=== PATIENT | female | born 1970 | race Caucasian/White ===

== ENCOUNTER 2020-01-30 10:42 | Emergency (ER) | payer BC, OTHER ==
--- OUTSIDE RECORDS SUMMARY | 2020-01-30 10:45 | XMS REPORT | Continuity of Care Document ---
:1970 Author Organization [facility] t Address [address] [place] [address] [address] [place] [address] Care Team Providers Name Role Phone Nery THORNTON Primary Care Physician Unavailable Stephenie TERAN Attending Clinician Husam LAZAR E Attending Clinician Alejandro WOODSON Attending Clinician STEPHENIE Attending Clinician Unavailable Nery WEINER Attending Clinician Unavailable Al TERAN Attending Clinician Sully ATKINSON M Attending Clinician Dilia Harvey MD Attending Clinician Charles TERAN Attending Clinician Yusef DICK Attending Clinician Unavailable Jerri CARABALLO, L Attending Clinician Unavailable Nery Thornton MD Attending Clinician Jimbo Burt Attending Clinician Yariel ATKINSON Attending Clinician Unavailable Shankar TERAN Attending Clinician Payers Payer Name Policy Type Policy Number Effective Date Expiration Date Jj angel [employer]IG[employer] MANAGED [id number] 2018 MD Fabian ABAD Oscar 00:00:00 POS OPEN [id number] 2019-Monika Roper Problems Condition Condition Condition Status Onset Resolution Last Treating Co mments Source Name Details Category Date Date Treatment Clinician Date Other Other Disease Active Overview: dysphagia dysphagia 3-31 Added Simba rso 00:00: automatic n 00 ally from request for surgery [id number] Gastro-eso Gastro-eso Disease Active Overview : phageal phageal 3-04 Added Anderso reflux reflux 00:00: automatic n disease disease 00 ally from without without request esophagiti esophagiti for s s surgery [id number] Hematemesi Hematemesi Disease Active Overview : s s 3-04 Added Anderso 00:00: automatic n 00 ally from request for surgery [id number] Heartburn Heartburn Disease Active 3-11 Anderso 00:00: n 00 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 14 Michael o 00:00: n 00 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, of lung, 00 TNM stage TNM stage 4 4 Dysphagia Dysphagia Disease Active 5-15 Anderso 00:00: n 00 Choking Choking Disease Active 5-15 Anderso 00:00: n 00 Thyroid Thyroid Disease Active Overview: cancer cancer 5-15 Mandatory Anderso 00:00: CMS n 00 ICD-10 2020 UPDATE Allergies, Adverse Reactions, Alerts Allergy Allergy Status Severity Reaction(s) Onset Inactive Treating Comm ents Source Name Type Date Date Clinician No Known DA Active U 2013-03 [facility]ie 04-26 [facility] 00:00: [address] Social History Social Habit Start Date Stop Date Quantity Comments Source History of tobacco Cigarette Smoker MD Weiner use Sex Assigned At F MD Rodriguez on Exposure to Not sure MD Weiner SARS-CoV-2 (event) Tobacco use and 2020-01-21 2020-01-21 Never used MD Rodriguez on exposure 00:00:00 00:00:00 Alcohol Comment 2019-05-31 2019-05-31 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 Clinician (SIG) Name Name crizotinib 2019-03 Yes Malignant 200mg Take 1 MD (Xalkori) 1-09 neoplasm of capsule Anderso 200 mg 00:00: unspecified (200 mg) n capsule 00 part of by mouth unspecified twice bronchus or daily. lung potassium 2019-03 Yes Malignant 40meq Take 2 MD chloride 104 neoplasm of packets A nderso (Klor-Con) 00:00: unspecified (40 mEq) n 20 mEq 00 part of by mouth packet unspecified daily. bronchus or Mix lung contents of 1 packet in 4 ounces (120 mL) of water or juice. Stir well and drink promptly. venlafaxine 2019-03 Yes TAKE 1 MD (EFFEXOR-XR 1-03 CAPSULE Markus so ) 150 mg 24 00:00: (150 MG) n hr capsule 00 BY MOUTH DAILY WITH FOOD zolpidem 2019-03 Yes TAKE 1 MD (AMBIEN) 5 1-03 TABLET (5 Simba rso mg tablet 00:00: MG) BY n 00 MOUTH DAILY AT BEDTIME venlafaxine 2019-03 Yes TAKE 1 MD (EFFEXOR-XR 1-03 CAPSULE Markus so ) 75 mg 24 00:00: (75 MG) BY n hr capsule 00 MOUTH DAILY WITH FOOD LORazepam 2019-03 Yes Malignant Take 1 tab (Ativan) 0-02 neoplasm of by mouth Anderso 0.5 mg 00:00: unspecified 30 minutes n tablet 00 part of prior to unspecified MRI, may bronchus or repeat x 1 lung if needed. acetaminoph 2019-03 2020- No Malignant 1{tbl} Take 1 MD en-codeine 0-02 10-13 neoplasm of tablet by Andersoscar (TYLENOL 00:00: 04:59 unspecified mouth n #2) 300-15 00 :00 part of every 4 mg per unspecified (four) tablet bronchus or hours as lung needed for moderate pain for up to 10 days. diphenoxyla Yes Diarrhea 1{tbl} Take 1-2 MD te-atropine 9-08 tablets by An derso (LomotiL) 00:00: mouth n 2.5 00 every 6 mg-0.025 mg (six) per tablet hours as needed for diarrhea. Not to exceed 8 tablets per day diphenoxyla 2019- No Diarrhea 1{tbl} Take 1 MD te-atropine 8-19 09-08 tablet by An derso (LomotiL) 00:00: 00:00 mouth n 2.5 00 :00 daily as mg-0.025 mg needed for per tablet diarrhea. Not to exceed 8 tablets per day ondansetron Yes Nausea and 8mg Take 1 MD (ZOFRAN) 8 7-09 vomiting tablet (8 Anderso mg tablet 00:00: mg) by n 00 mouth every 8 (eight) hours as needed for nausea or vomiting. pantoprazol 2019- No Malignant 40mg Take 1 MD e 3- 11-04 neoplasm of tablet (40 A nderso (Protonix) 00:00: 00:00 unspecified mg) by n 40 mg EC 00 :00 part of mouth 2 tablet unspecified (two) bronchus or times a lung day before meals. Take at least 2-3 hours before or after Xalkori dose. ondansetron 2019- No Nausea and Take 1 MD (ZOFRAN) 8 1-14 07-08 vomiting tablet (8 Anderso mg tablet 00:00: 00:00 mg) by n 00 :00 mouth every 8 hours as needed for nausea or vomiting. crizotinib 2018-03- No Malignant 200mg Take 1 MD (XALKORI) 2-03 11-04 neoplasm of capsule Anderso 200 mg 00:00: 00:00 unspecified (200 mg) n capsule 00 :00 part of by mouth unspecified twice bronchus or daily. lung crizotinib Yes Malignant 200mg Take 1 MD (XALKORI) 5-15 neoplasm of capsule Anderso 200 mg 00:00: unspecified (200 mg) n capsule 00 part of by mouth unspecified twice bronchus or daily. lung XALKORI 250 2019- No Malignant TAKE 1 MD mg capsule 5-10 11-04 neoplasm of CAPSULE Anderso 00:00: 00:00 unspecified TWICE A n 00 :00 part of DAY unspecified bronchus or lung pantoprazol 2019- No Heartburn 40mg Take 1 MD e 3-11 11-04 tablet (40 Anderso (PROTONIX) 00:00: 00:00 mg) by n 40 mg EC 00 :00 mouth tablet daily. Take at least 2-3 hours before or after Xalkori dose. ondansetron 2019- No Nausea and Take 1 MD (ZOFRAN) 8 2-07 01-14 vomiting tablet (8 Anderso mg tablet 00:00: 00:00 mg) by n 00 :00 mouth every 8 hours as needed for nausea or vomiting. citalopram Yes Depressive 10mg Take 1 MD (CeleXA) 10 1-30 disorder, tablet (10 Anderso mg tablet 00:00: not mg) by n 00 otherwise mouth at specified bedtime. loperamide 2017-03 Yes Malignant 2mg Take 1 MD (IMODIUM) 2 2-19 neoplasm of capsule (2 Anderso mg capsule 00:00: unspecified mg) by n 00 part of mouth as unspecified needed for bronchus or diarrhea. lung Take 2 cap initially, then 1 cap. after each loose BM. Max 8 cap/day. furosemide Yes Malignant 10mg Take 0.5 MD (LASIX) 20 5-23 neoplasm of tablets Anderso mg tablet 00:00: unspecified (10 mg) by n 00 part of mouth unspecified daily as bronchus or needed for lung edema. acetaminoph 2019- No Malignant 5mL Take 5 mL MD en-codeine 5-23 10-02 neoplasm of by mouth Anderso (TYLENOL 00:00: 00:00 unspecified every 6 n with 00 :00 part of (six) CODEINE) unspecified hours as 120-12 mg/5 bronchus or needed mL oral lung (moderate solution pain). diphenoxyla 2019- No Diarrhea 1{tbl} Take 1 MD te-atropine 4-25 08-19 tablet by An derace (LOMOTIL) 00:00: 00:00 mouth n 2.5 00 :00 every 6 mg-0.025 mg (six) per tablet hours as needed for diarrhea. Not to exceed 8 tablets per day prochlorper Yes Nausea and 10mg Take 1 MD azine 7-06 vomiting tablet (10 Simba rso (COMPAZINE) 00:00: mg) by n 10 mg 00 mouth tablet every 6 (six) hours as needed for nausea or vomiting. Vital Signs Vital Name Observation Time Observation Value Comments Source Systolic blood pressure 2020-01-21 19:39:03 105 mm[Hg] MD Weiner Diastolic blood pressure 2020-01-21 19:39:03 58 mm[Hg] MD Weiner Heart rate 2020-01-21 19:39:03 69 /min MD Markus clifford Body temperature 2020-01-21 19:39:03 36.78 Clary MD Shelby gorman Respiratory rate 2020-01-21 19:39:03 15 /min MD Shelby gorman Oxygen saturation in 2020-01-21 19:39:03 93 /min MD Weiner Arterial blood by Pulse oximetry Body weight 2020-01-21 19:35:00 91.4 kg MD Markus clifford BMI 2020-01-21 19:35:00 36.85 kg/m2 MD Markus clifford Procedures Procedure Date / Time Performed Performing Clinician [facility] e CT CHEST W CONTRAST 2020-01-18 13:05:00 Anita Allen MD Markushiren clifford POC CREATININE 2020-01-18 12:40:00 Anita Allen MD COMPLETE BLOOD COUNT W/ 2020-01-18 12:18:00 Anita Allen MDon DIFFERENTIAL COMPREHENSIVE METABOLIC PANEL 2020-01-18 12:18:00 Anita Allen MD LACTATE DEHYDROGENASE 2020-01-18 12:18:00 [facility] LEV[facility] 2020-01-18 12:18:00 Anita Allen MD PHOSPHORUS LEVEL 2020-01-18 12:18:00 Anita Allen MD Results CBC 2020-01-18 12:18:00 Anita Allen MD MANUAL DIFFERENTIAL 2020-01-18 12:18:00 Anita Allen MD [facility] GLUCOSE LEVEL 2020-01-18 12:18:00 Anita Allen MD BLOOD UREA NITROGEN 2020-01-18 12:18:00 Anita Allen MD Markus [facility] ELECTROLYTE PANEL 2020-01-18 12:18:00 Anita Allen MD SERUM CREATININE 2020-01-18 12:18:00 Anita Allen MD .GLOMERULAR FILTRATION RATE 2020-01-18 12:18:00 Anita Allen MD CALCIUM LEVEL TOTAL 2020-01-18 12:18:00 Anita Allen MD Markus son ALBUMIN LEVEL 2020-01-18 12:18:00 Anita Allen MD ALKALINE PHOSPHATASE 2020-01-18 12:18:00 Anita Allen MD Simba rson ALANINE AMINOTRANSFERASE 2020-01-18 12:18:00 Anita Allen MD ASPARTATE AMINOTRANSFERASE 2020-01-18 12:18:00 Anita Allen TOTAL PROTEIN 2020-01-18 12:18:00 Anita Allen MD FRACTIONATED BILIRUBIN 2020-01-18 12:18:[address] CHEST W CONTRAST 2019-11-02 12:03:00 Angeles Weiner MD And erson POC CREATININE 2019-11-02 11:46:00 Angeles Weiner MD COMPLETE BLOOD COUNT W/ 2019-11-02 11:12:00 Angeles Weiner MD DIFFERENTIAL COMPREHENSIVE METABOLIC PANEL 2019-11-02 11:12:00 Talia Weiner MD Results CBC 2019-11-02 11:12:00 Angeles Weiner MD MANUAL DIFFERENTIAL 2019-11-02 11:12:00 Angeles Weiner MD And erson GLUCOSE LEVEL 2019-11-02 11:12:00 Angeles Weiner MD ELECTROLYTE PANEL 2019-11-02 11:12:00 Angeles Weiner MD Markushiren clifford SERUM CREATININE 2019-11-02 11:12:00 Angeles Weiner MD Michael on .GLOMERULAR FILTRATION RATE 2019-11-02 11:12:00 Angeles Weiner MD CALCIUM LEVEL TOTAL 2019-11-02 11:12:00 Angeles Weiner MD And erson ALBUMIN LEVEL 2019-11-02 11:12:00 Angeles Weiner MD ALKALINE PHOSPHATASE 2019-11-02 11:12:00 Angeles Weiner MDson ALANINE AMINOTRANSFERASE 2019-11-02 11:12:00 Angeles Weiner ASPARTATE AMINOTRANSFERASE 2019-11-02 11:12:00 Angeles Weiner MD TOTAL PROTEIN 2019-11-02 11:12:00 Angeles Weiner MD FRACTIONATED BILIRUBIN 2019-11-02 11:12:00 Angeles Weiner MD BLOOD UREA NITROGEN 2019-11-02 11:12:00 Angeles Weiner MD And erson COMPLETE BLOOD COUNT W/ 2019-09-07 14:59:00 Angeles Weiner MD DIFFERENTIAL COMPREHENSIVE METABOLIC PANEL 2019-09-07 14:59:00 Talia Weiner MD Results CBC 2019-09-07 14:59:00 Angeles Weiner MD Andsylviao martell MANUAL DIFFERENTIAL 2019-09-07 14:59:00 Angeles Weiner MD And erson GLUCOSE LEVEL 2019-09-07 14:59:00 Angeles Weiner MD Andsylviao martell ELECTROLYTE PANEL 2019-09-07 14:59:00 Angeles Weiner MD Markus son SERUM CREATININE 2019-09-07 14:59:00 Angeles Weiner MD Michael on .GLOMERULAR FILTRATION RATE 2019-09-07 14:59:00 Angeles Weiner MD CALCIUM LEVEL TOTAL 2019-09-07 14:59:00 Angeles Weiner MD And erson ALBUMIN LEVEL 2019-09-07 14:59:00 Angeles Weiner MD Anderso martell ALKALINE PHOSPHATASE 2019-09-07 14:59:00 Angeles Weiner MD ALANINE AMINOTRANSFERASE 2019-09-07 14:59:00 Angeles Weiner ASPARTATE AMINOTRANSFERASE 2019-09-07 14:59:00 Angeles Weiner MD TOTAL PROTEIN 2019-09-07 14:59:00 Angeles Weiner MD Andsylviao martell FRACTIONATED BILIRUBIN 2019-09-07 14:59:00 Angeles Weiner MD BLOOD UREA NITROGEN 2019-09-07 14:59:00 Angeles Weiner MD And erson CT CHEST W CONTRAST 2019-07-27 12:12:00 Angeles Weiner MD And erson POC CREATININE 2019-07-27 11:53:00 Angeles Weiner MD Anderso martell COMPLETE BLOOD COUNT W/ 2019-07-27 11:27:00 Angeles Weiner MD DIFFERENTIAL COMPREHENSIVE METABOLIC PANEL 2019-07-27 11:27:00 Talia Weiner MD Results CBC 2019-07-27 11:27:00 Angeles Weiner MD Anderso martell MANUAL DIFFERENTIAL 2019-07-27 11:27:00 Angeles Weiner MD And erson GLUCOSE LEVEL 2019-07-27 11:27:00 Angeles Weiner MD Andana moura BLOOD UREA NITROGEN 2019-07-27 11:27:00 Angeles Weiner MD And erson ELECTROLYTE PANEL 2019-07-27 11:27:00 Angeles Weiner MD Markus son SERUM CREATININE 2019-07-27 11:27:00 Angeles Weiner MD Michael on .GLOMERULAR FILTRATION RATE 2019-07-27 11:27:00 Angeles Weiner MD CALCIUM LEVEL TOTAL 2019-07-27 11:27:00 Angeles Weiner MD And erson ALBUMIN LEVEL 2019-07-27 11:27:00 Angeles Weiner MD ALKALINE PHOSPHATASE 2019-07-27 11:27:00 Angeles Weiner MD ALANINE AMINOTRANSFERASE 2019-07-27 11:27:00 Angeles Weiner ASPARTATE AMINOTRANSFERASE 2019-07-27 11:27:00 Angeles Weiner MD TOTAL PROTEIN 2019-07-27 11:27:00 Angeles Weiner MD FRACTIONATED BILIRUBIN 2019-07-27 11:27:00 Angeles Weiner MD FL ESOPHAGRAM COMPLETE 2019-06-11 16:05:55 Urszula Virk MD SURGICAL BIOPSY HISTORIC 2019-05-31 17:00:00 Uyen Cantrell MD PATHOLOGY BIOPSY SPECIMEN 2019-05-31 15:43:39 Haile Harvey MD INTERPRETATION ENDOSCOPY NOTE RESULTS 2019-05-31 15:35:16 Haile Harvey MD UPPER GASTROINTESTINAL 2019-05-31 15:21:00 Haile Harvey MD ENDOSCOPY OF ESOPHAGUS, STOMACH, AND DUODENUM WITH BIOPSY COMPLETE BLOOD COUNT W/ 2019-05-21 15:13:00 Angeles Weiner MD DIFFERENTIAL COMPREHENSIVE METABOLIC PANEL 2019-05-21 15:13:00 Talia Weiner MD Results CBC 2019-05-21 15:13:00 Angeles Weiner MD Andana moura MANUAL DIFFERENTIAL 2019-05-21 15:13:00 Angeles Weiner MD And erson GLUCOSE LEVEL 2019-05-21 15:13:00 Angeles Weiner MD Andana moura BLOOD UREA NITROGEN 2019-05-21 15:13:00 Angeles Weiner MD And erson ELECTROLYTE PANEL 2019-05-21 15:13:00 Angeles Weiner MD Markus son SERUM CREATININE 2019-05-21 15:13:00 Angeles Weiner MD Michael on .GLOMERULAR FILTRATION RATE 2019-05-21 15:13:00 Angeles Weiner MD CALCIUM LEVEL TOTAL 2019-05-21 15:13:00 Angeles Weiner MD And erson ALBUMIN LEVEL 2019-05-21 15:13:00 Angeles Weiner MD Andsylviao martell ALKALINE PHOSPHATASE 2019-05-21 15:13:00 Angeles Weiner MDson ALANINE AMINOTRANSFERASE 2019-05-21 15:13:00 Angeles Weiner ASPARTATE AMINOTRANSFERASE 2019-05-21 15:13:00 Angeles Weiner MD TOTAL PROTEIN 2019-05-21 15:13:00 Angeles Weiner MD Andsylviao n FRACTIONATED BILIRUBIN 2019-05-21 15:13:00 Angeles Weiner MD COMPLETE BLOOD COUNT W/ 2019-04-16 16:27:00 Carolyn Garcia MD nderstobi DIFFERENTIAL COMPREHENSIVE METABOLIC PANEL 2019-04-16 16:27:00 Carolyn Garcia MD Results CBC 2019-04-16 16:27:00 Carolyn Garcia MD MANUAL DIFFERENTIAL 2019-04-16 16:27:00 Carolyn Garcia MD Markus son GLUCOSE LEVEL 2019-04-16 16:27:00 Carolyn Garcia MD ELECTROLYTE PANEL 2019-04-16 16:27:00 Carolyn Garcia MD Andana moura SERUM CREATININE 2019-04-16 16:27:00 Carolyn Garcia MD .GLOMERULAR FILTRATION RATE 2019-04-16 16:27:00 Carolyn Garcia MD CALCIUM LEVEL TOTAL 2019-04-16 16:27:00 Carolyn Garcia MD Markus son ALBUMIN LEVEL 2019-04-16 16:27:00 Carolyn Garcia MD ALKALINE PHOSPHATASE 2019-04-16 16:27:00 Carolyn Garciae rson ALANINE AMINOTRANSFERASE 2019-04-16 16:27:00 Carolyn Garcia MD ASPARTATE AMINOTRANSFERASE 2019-04-16 16:27:00 Carolyn Garcia TOTAL PROTEIN 2019-04-16 16:27:00 Carolyn Garcia MD FRACTIONATED BILIRUBIN 2019-04-16 16:27:00 Carolyn Garcia MD Cristy romero BLOOD UREA NITROGEN 2019-04-16 16:27:00 Carolyn Garcia MD Markus clifford CT CHEST W CONTRAST 2019-04-12 14:35:44 Carolyn Garcia MD Markus clifford BLOOD UREA NITROGEN 2019-04-12 12:05:00 Marita Saldivar MD Markus clifford SERUM CREATININE 2019-04-12 12:05:00 Marita Saldivar MD SERUM CREATININE 2019-04-12 12:05:00 Marita Saldivar MD .GLOMERULAR FILTRATION RATE 2019-04-12 12:05:00 Marita Saldivar MD Encounters Start End Encounter Admission Attending Care Care Encounter Source Date/Time Date/Time Type Type Clinicians Facility Department ID 2019-10-01 2019-10-01 Outpatient FERNANDA GARCIA MDA MDA [id number] 00:00:00 00:00:00 CAROLYN moura 2019-09-07 2019-09-07 Outpatient FERNANDA WEINER BALWINDER MDA [id number] 09:53:02 23:59:00 ANGELES moura Results Test Description Test Time Test Comments Results Result [facility] e Comments CT Chest with 2020-01-19 1. Residual right MD Weiner Contrast 15:19:36 lower cervical and right mediastinal and hilar lymph nodes that presumably represent treated tumor are not changed. 2. Small pulmonary nodules are not changed over a couple of years and could be benign now or represent treated tumor. No progressive or new disease. 3. New right costophrenic sulcus opacities might be atelectasis, aspiration or infection. Interface, Radiology Results In - 01/19/2020 9:21 AM CSTFULL RESULT:Examination: CT CHEST W CONTRAST, 01/18/2020 7:05 AMClinical History: Malignant neoplasm of unspecified part of unspecified bronchus or lungIndication: Lung cancer, staging, Lung cancer care, No iodinated contrast contraindication, restage, restageComparison: 11/02/2019. Technique: CT of the chest was performed with intravenous contrast.Findings: Right supraclavicular adenopathy is seen again but not really changed over the past 5 months soft tissue thickening along the trachea at the thoracic inlet is seen again. Cardiac chamber sizes are normal. Right paratracheal adenopathy is seen again. Scattered small mediastinal lymph nodes and small right hilar lymph nodes are unchanged. Numerous small nodules are seen again throughout both lungs without significant change back to at least April 2017 examination. There is some new patchy ground glass opacity in the right posterior costophrenic sulcus. No farnaz consolidation. No pleural effusion. Gastric band device is present. Cholecystectomy clips.IMPRESSION:1. Residual right lower cervical and right mediastinal and hilar lymph nodes that presumably represent treated tumor are not changed.2. Small pulmonary nodules are not changed over a couple of years and could be benign now or represent treated tumor. No progressive or new disease.3. New right costophrenic sulcus opacities might be atelectasis, aspiration or infection. Differential 2020-01-18 16:49:26 Test Item Value Reference Range Interpretation Comme nts Total Cells (test code = 01087-2) 100 Neutrophil % (test code = 6491) 26.0 % 42-66 L The Neutrophil count includes Bands. Lymphocyte % (test code = 6194) 38.0 % 24-44 Monocyte % (test code = 6422) 30.0 % 2-7 H Eosinophil % (test code = 5520) 5.0 % 1-4 H Basophil % (test code = 5068) 1.0 % 0-1 NRBC (test code = 771-6) 1.0 <=0.0 H Neutrophil Abs (test code = 6492) 0.62 K/uL 1.7-7.3 L Lymphocyte Abs (test code = 6195) 0.91 K/uL 1-4.8 L Monocyte Abs (test code = 6423) 0.72 K/uL 0.08-0.7 H Eosinophil Abs (test code = 5521) 0.12 K/uL 0.04-0.4 Basophil Abs (test code = 5069) 0.02 K/uL 0-0.1 RBC Morph (test code = 6742-1) Present Normal A PLT Morph (test code = 34503-5) Present Normal A Anisocytosis (test code = 702-1) Present Not Present A Slide Comments (test code = 5447) See Note A Platelet morphology normal with occasional giant platelet. Lab Interpretation (test code = Abnormal 93797-8) MD Weiner.[id number] 16:49:24 Test Item Value Reference Range Interpretation Comments WBC (test code = 8034) 2.4 K/uL 4-11 L RBC (test code = 6932) 3.93 4.00- 5.50 M/uL L Hgb (test code = 5898) 10.9 12.0- 16.0 gm/dL L Hct (test code = 5860) 34.4 % 37-47 L MCV (test code = 6222) 88 fL 82-98 MCH (test code = 6220) 27.7 pg 27-31 MCHC (test code = 6221) 31.7 31.0- 36.0 gm/dL RDW-SD (test code = 55.2 fL 35.1-46.3 H 6972) RDW-CV (test code = 17.5 % 12-15.5 H 6971) Platelet count (test 234 K/uL 140-440 code = 6832) MPV (test code = 6282) 11.5 fL 4-10.4 H INRBC (test code = 0.0 % <=0.0 The INRBC (instrument 5974) NRBC) value ref lects the enumeration of nucleated red b lood cells contained in a 200uL sampleof whole blood analyzed by the instrument. Thi s value maydiffer from the NRBC value reported in a m anual differential,wh ich is based on a 100 cell differential. Lab Interpretation Abnormal (test code = 08500-9) MD WeinerElectrolyte [id number] 16:17:37 Test Item Value Reference Range Interpretation Comments Sodium Lvl (test code = 7355) 143 136- 145 mEq/L Potassium Lvl (test code = 6854) 2.6 3.5- 5.1 mEq/L L Chloride (test code = 5279) 104 98- 107 mEq/L CO2 (test code = 5227) 33 22- 29 mEq/L H Anion Gap (test code = 9325) 6 4- 14 mEq/L Lab Interpretation (test code = Abnormal 34751-7) MD WeinerPhosphorus [id number] 13:56:37 Test Item Value Reference Range Interpretation Comments Phosphorus (test code = 6817) 2.6 mg/dL 2.5-4.5 MD [id number] 13:56:36 Test Item Value Reference Range Interpretation Comments LDH (test code = 6111) 495 U/L 135-214 H Resul ts greater than 1651 U/L may no t be reliable due to matrix effect w ith extended diluti on as it exceeds the labelling machine operator s recommended l imit. Caution should be exercised when interpreting price ch values and done in conjunction wit h clinical contex t. Lab Interpretation (test Abnormal code = 28805-0) MD WeinerCalcium [id number] 13:56:35 Test Item Value Reference Range Interpretation Comments Calcium Lvl (test code = 5258) 7.8 mg/dL 8.4-10.2 L Lab Interpretation (test code = Abnormal 03532-3) MD WeinerFractionated [id number] 13:56:34 Test Item Value Reference Range Interpretation Comments Bili Total (test <0.3 <=1.2 mg/dL Indocyanine Green (ICG) may code = 5096) cause falsely e levated bilirubin resul ts. Total and direct bilirubi n must not be measured from s amples containing indo cyanine green. False el evation of total bilirubin can be seen in patients wit h IgG concentrations above 28 g/L.Direct and indirect bilirubin will not be reported when T otal bilirubin resul t is <0.3 mg/dL MD WeinerAlbumin [id number] 13:56:33 Test Item Value Reference Range Interpretation Comments Albumin Lvl (test code = 4763) 2.6 3.5- 5.2 gm/dL L Lab Interpretation (test code = Abnormal 84106-7) MD WeinerGlomerular Filtration [id number] 13:56:32 Test Item Value Reference Range Interpretation Comments eGFR-AA (test 87 >=60 mL/min/1.73 sq. Normal eGFR: >= 60 code = 8062) m mL/min/1.73 m2N ote: The eGFR is calcula mirella using the CKD-EPI equ ation. The eGFR declines w ith age. eGFR <60 mL/min /1.73 m2 is considered as " decreased". This equation s hould only be used for pat ients 18 and older. Acco rding to the National Ki dney Foundation's dney Disease Outcome Quality Initiative (KDO QI) classification and 2012 Kidney Disease Improving Global Outcomes (KDIGO) Clinical Practi ce Guideline, the stage of CKD should be c ategorized based on estima mirella GFR. Stage Descripti on GFR mL/min/1.73 m21 Normal or high GFR >=902 Mildly de creased GFR 60-893a Mildly to moder ately decreased GFR 45-593b Moderately to s everely decreased GFR 30-444 Severely decrea sed GFR 15-295 Kidney failure <15 eGFR-YARELIS (test 76 >=60 mL/min/1.73 sq. Amelia l eGFR: >= 60 code = 8063) m mL/min/1.73 m2N ote: The eGFR is calcula mirella using the CKD-EPI equ ation. The eGFR declines w ith age. eGFR <60 mL/min /1.73 m2 is considered as " decreased". This equation s hould only be used for pat ients 18 and older. Acco rding to the National dney Foundation's dney Disease Outcome Quality Initiative (KDO QI) classification and 2012 Kidney Disease Improving Global Outcomes (KDIGO) Clinical Practi ce Guideline, the stage of CKD should be c ategorized based on estima mirella GFR. Stage Descripti on GFR mL/min/1.73 m21 Normal or high GFR >=902 Mildly de creased GFR 60-893a Mildly to moder ately decreased GFR 45-593b Moderately to s everely decreased GFR 30-444 Severely decrea sed GFR 15-295 Kidney failure <15 MD WeinerAspartate Rppbtsbbicrhhqry1165-12-37 13:56:31 Test Item Value Reference Range Interpretation Comments AST (test code = 4731) 68 U/L <=32 H Lab Interpretation (test code = Abnormal 82163-6) MD WeinerTotal [id number] 13:56:30 Test Item Value Reference Range Interpretation Comments Total Protein (test code = 7649) 6.1 g/dL 6.4-8.3 L Lab Interpretation (test code = Abnormal 37362-7) MD WeinerMagnesium Sqxch7164-03-29 13:56:28 Test Item Value Reference Range Interpretation Comments Magnesium (test code = 6359) 2.1 mg/dL 1.6-2.6 MD WeinerGlucose [id number] 13:56:27 Test Item Value Reference Range Interpretation Comments Glucose Level (test 91 mg/dL 70-99 Referenc e range is valid code = 5699) for fasting spe cimens only. Guideline s established by the [place] [employer] yael delines (Standards of M edical Care in Diabete s 2016. Diabetes Care 2 016; 39: S13-22) are ray t a fasting glucose of greater than or equal to 126 mg/dL or a random glucose greater than or equal to 200 mg /dL with symptoms, that are confirmed by re peat testing on a di fferent day, meet the c zoilaeria for diabetes me jasmeet. MD WeinerAlkaline Lydwzwxplua6651-66-10 13:56:26 Test Item Value Reference Range Interpretation Comments Alk Phos (test code = 4768) 112 U/L 35-104 H Lab Interpretation (test code = Abnormal 40499-9) MD WeinerQtzzexpgISR3569-39-36 13:56:25 Test Item Value Reference Range Interpretation Comments ALT (test code = 4705) 70 U/L <=33 H Lab Interpretation (test code = Abnormal 32594-9) MD Weiner.Serum Nzsdytoqeu9753-11-35 13:56:24 Test Item Value Reference Range Interpretation Comments Creatinine (test code = 5399) 0.90 mg/dL 0.51-0.95 MD WeinerPdvdpfceRWP8290-00-68 13:56:23 Test Item Value Reference Range Interpretation Comments BUN (test code = 5055) 6 mg/dL 6-23 MD WeinerPOC Ceuzhepxqg7979-42-60 12:50:25 Test Item Value Reference Range Interpretation Comments POC Crea (test 0.8 mg/dL 0.6-1.3 Medications, especially code = hydroxyurea or supplements, 32085-2) such as ascorba te, can interfere with test results causing a false ly and significantlyhi gher result than expected. If a problem is suspected wi th a patient's resul t, a sample should be sent to the laboratory for confirmatory testing. Method description: The i-STAT is a n analyzer used for in vit ro quantification of various analytes in who le blood. The device uses a s yarelis disposable cart ridge which contains microf abricated sensors, a shaquille bration solution, fluid ics system, and a waste sudhakar mber. Each test cartridge contains chemically sens itive biosensors on a silicon chip that are config ured to perform specifi c tests. The microfabricated sensors measure analyte concentration b y an electrochemical assay. POC eGFR-AA 101 >=60 mL/min/1.73 Normal eGFR >= 60 (test code = m2 mL/min/1.73 [place] [address]-6) calculated usin g the CKD-EPI equation. The e GFR declines with age. eGFR <60 mL/min/1.73 m2 is considered as "decreased" This equation should only be used for patients 18 and older. According to e National [employer] on's Kidney Disease Outcome Quality Initiative (KDO QI) classification and 2012 Kidney Disease Improving Global Outcomes (KDIGO) Clinical Practi ce Guideline, the stage of CK D should be categorized bas ed on estimated GFR. Stage Description GFR mL/min/1.73 m21 Kidney agatha ge with normal or high GFR >=902 Kidney damage w ith mild decrease in GFR 60-893a Mild to moderat e decrease in GFR 45-593b Moderate to severe decrease in GFR 30-444 Severe d ecrease in GFR 15-295 K idney failure <15 (or ji lysis) POC eGFR-YARELIS 87 >=60 mL/min/1.73 Normal eGFR >= 60 (test code = m2 mL/min/1.73 m2 [place] [address]-6) calculated usin g the CKD-EPI equation. The e GFR declines with age. eGFR <60 mL/min/1.73 m2 is considered as "decreased" This equation should only be used for patients 18 and older. According to e National [employer] on's Kidney Disease Outcome Quality Initiative (KDO QI) classification and 2012 Kidney Disease Improving Global Outcomes (KDIGO) Clinical Practi ce Guideline, the stage of CK D should be categorized bas ed on estimated GFR. Stage Description GFR mL/min/1.73 m21 Kidney agatha ge with normal or high GFR >=902 Kidney damage w ith mild decrease in GFR 60-893a Mild to moderat e decrease in GFR 45-593b Moderate to severe decrease in GFR 30-444 Severe d ecrease in GFR 15-295 K idney failure <15 (or ji lysis) POC Clean Dev Yes (test code = 6672) MD WeinerEsophagram [id number] 16:26:04 Increased tertiary nonpropulsive esophageal contractions with hang-up of a mini marshmallow (simulating a pill) in the upper esophagus. Interface, Radiology Results In - 06/11/2019 11:28 AM CDTFULL RESULT:Examination: FL ESOPHAGRAM COMPLETE, 06/11/2019 11:05 AMClinical History: 48-year-old female withnon-small cell lung cancer and thyroid cancerIndication: dysphagiaComparison: NoneTechnique: A double contrast esophagram was performed. The patient drank thick and thin barium after the administration of effervescent granules. Fluoroscopic images were obtained with the patient in upright bilateral posterior oblique, upright anterior-posterior and prone right anterior oblique positions. A 1 cm rodriguez mallow was administered.Findings: No aspiration was seen. Laryngeal penetration was seen. The esophageal course and caliber were normal with no strictures, masses or diverticula. No mucosal ulcerations were seen. Increased tertiary nonpropulsive esophageal contractions were noted. There was hang-up of a mini marshmallow simulating a pill in the upper esophagus, which eventually passed with additional sips of barium and water.There was no hiatal hernia or spontaneous reflux. Visualized portions of the upper stomach are normal, with free flow of contrast through the gastric banding device.IMPRESSION:Increased tertiary nonpropulsive esophageal contractions with hang-up of a mini marshmallow (simulating a pill) in the upper esophagus. AndersonENDOSCOPY NOTE [id number] 15:35:16Haile Harvey MD - 05/31/2019 10:35 AM CDTPatient Name: Zari PosadasGender: FemaleMRN: [id number]: 48Procedure Date No Time: 05/31/2019Instrument Name: 1119 [id number](s): CHANTELL HARVEY, NANCYrocedure Name: Upper GI endoscopyScope In: 10:39:39 AMScope Out: 10:46:53 AMTotal Procedure Duration Time 0 hours 7 minutes 14 seconds Indications: Dysphagia, HeartburnMedications: TIVAProcedure Description: Pre-Anesthesia Assessment: - Prior to the procedure, a History and Physical was perform ed, and patient medications and allergies were reviewed. The risks and benefits of the procedure and the sedation options and risks were discussed with the patient. All questions were answered and informed consent was obtained. Patient identification and proposed procedurewere verified by the physician in the pre- procedure area. Airway Examination: normal oropharyngeal airway and neck mobility. Prophylactic Antibiotics: The patient does not require prophylactic antibiotics. Prior Anticoagulants: The patient has taken no previous anticoagulant or antiplatelet agents. ASA Grade Assessment: II - A patient with mild systemic disease. After reviewing the risks and benefits, the patient was deemed in satisfactory condition to undergo the procedure. The anesthesia plan was to use TIVA. Immed iately prior to administration of medications, the patient was re-assessedfor adequacy to receive sedatives. The heart rate, respiratory rate, oxygen saturations, blood pressure, adequacy of pulmonary ventilation, and response to care were monitored throughout the procedure. The physical status of the patient was re-assessed after the procedure. Informed consent was obtained. Throughout the procedure, the patient's blood pressure, pulse, and oxygen saturations were monitored continuously. The Olympus GIF-HQ190 ([id number]) upper endoscope - (9.9 mm dm) was introduced through the mouth, and advanced to the third part of duodenum. The upper GI endoscopy was accomplished without difficulty. The patient tolerated the procedure well.Findings: A medium-sized hiatal hernia was present with slight irregularity at GE junction. Biopsies were taken with a cold forceps for histology here and in proximal esophagus to r/o eosinophilic esophagitis (doubt).Complications: No immediate complications.Estimated Blood Loss: Estimated blood loss: none.Post Procedure Diagnosis: - Medium-sized hiatalhernia. Biopsied.Recommendation: - Patient has a contact number available for emergencies. The signs and symptoms of potential delayed complications were discussed with the patient. Return to normal activities tomorrow. Written discharge instructions were provided to the patient. - Resume previous diet. - Continue present medications. - Await pathology results. -Consider performance of barium swallow and esophageal manometry in light of atypical symptoms.Attending Participation: I personally performed the entire procedure.HAILE HARVEY MD05/31/2019 10:58:30 AMThis report has been signed electronically.Number of Addenda: 0MD AndersonSCR MAMM BILATERAL FABIO CAD [id number] 08:38:34 - SCR MAMM BILATERAL FABIO CAD DIGITALBILATERAL DIGITAL SCREENING MAMMOGRAM 3D/2D WITH CAD: 09/11/2018CLINICAL: Asymptomatic. Digital breast tomosynthesis was performed in addition to routine CC and MLO views. Current mammographic images were evaluated by either a [employer] M-Vu or a [employer] ImageChecker CAD (computer aided detection system). Comparison is made to exams dated 09/06/2017 mammogram, 08/31/2015 mammogram - [facility], and 12/16/2013 mammogram - [facility]. There are scattered fibroglandular tissues in both breasts. There are benign calcificationsin both breasts. No suspicious mass, architectural distortion, malignant type calcification, or lymph node abnormality detected. Breast architecture is stable compared to prior exams.IMPRESSION: BENIGNThere is no mammographic evidence of malignancy. Resume annual screening mammography in one year. Zac Gallagher M.D. et/penrad:09/17/2018 08:38:34 Apartment Maintenance Supervisor: Renata Regalado MM, [employer] [facility] Mammographyletter sent: BIRADS 1-2 Normal Mammogram BI-RADS: 2 Benign- XR UGI W/AIR W/O [id number] 15:50:00 Patient Name: ZARI COLBY Unit No: [id number] EXAMS: CPT CODE: [id number] XR UGI W/AIR W/O KUB 73040 Exam: Single contrast upper GI Location: B2 Clinical Indication: Dysphagia. Findings: Total fluoroscopy time was 0.4 minutes. 7 spot fluoroscopic images of the upper abdomen were obtained while the patient drank barium. Gastric band is at an approximate 45 degree angle. No slip or obstruction. Contrast passes normally into the proximal small bowel. Impression: Normal band study. at 1550 Reported and signed by: Gregory Davis M.D. CC: Pennie Grimm MD Technologist: [facility] STUDENT ; Willie Ireland RT(R) Transcrpt Date/Tm/Trnsp: 07/09/2018 (3242) [id number] Print D/T: S: 07/09/2018 (8241) [facility] NAME: ZARI COLBY [address] [place] PHYS: [place] [address] : 1970 AGE: 47 SEX: F LOC: Z.RAD PHONE #: [phone] EXAM DATE: 07/09/2018 STATUS: REG CLI FAX #: [phone] RADIOLOGY NO: PAGE 1 Signed Report
--- NOTE | 2020-01-30 11:23 | RAD REPORT ---
EXAM DESCRIPTION: CT - Head Brain Wo Cont - 01/30/2020 11:16 am CLINICAL HISTORY: Altered mental status, suspected CVA, history of non-small cell lung malignancy COMPARISON: HEAD BRAIN W O CONTRAST dated 05/20/2014 TECHNIQUE: Axial 5 mm thick images of the head were obtained without IV contrast. All CT scans are performed using dose optimization technique as appropriate and may include automated exposure control or mA/KV adjustment according to patient size. FINDINGS: No intracranial hemorrhage is present. The patient has a 3.5 centimeter diameter isodense lesion in the left temporal lobe -posterior frontal lobe junction. There is a moderate amount of surr ounding edema. Mass effect is created with a 4 millimeter qshn-pt-efehg midline shift. A small 9 millimeter hyperdense lesion is present in the anteromedial right frontal lobe with a minim al amount of adjacent edema. A 2 centimeter lesion is present in the right frontal lobe adjacent to t he basal ganglia. There is a mild surrounding rim of edema. Additional small metastatic lesions could be present an isodense to parenchyma on noncontrast imaging. No acute cortical based infarction. No abnormal extra-axial fluid collections. Left lateral ventricl e is partially effaced by the left cerebral mass effect. Mastoid air cells and visualized portions of the paranasal sinuses are clear. No acute bony findings. Findings telephoned to the referring clinician 11:12 a.m.. IMPRESSION: Multiple intracranial metastatic lesions present with a dominant 3.5 centimeter mass at the left temporal lobe frontal lobe junction. This creates moderate severity mass effect with 4 mm of qxfz-qi-pbgef midline shift. No intracranial hemorrhage. Patient has several additional small metastatic lesions without significa nt edema or mass effect.
[2020-01-30] MEDS ORDERED: FENTANYL CITR 100 MCG/2 ML ONE ×2 (11:41→13:32)
[2020-01-30] MEDS ORDERED: dexAMETHasone 10 MG/ML VIAL ONE (11:41)
--- NOTE | 2020-01-30 12:01 | RAD REPORT ---
EXAM DESCRIPTION: RAD - Chest Single View - 01/30/2020 11:53 am CLINICAL HISTORY: cva, aphasia COMPARISON: Portable May 2014 TECHNIQUE: AP portable chest image was obtained 01/30/2020 11:53 am . FINDINGS: Lung volumes are low. A peripheral mass or consolidation not identified. Available medical history is limited. The patient was thought to have non-small cell lung carcinoma. However, no mass is evident. A central mediastinal mass is potentially masked. No acute failure or volume overload. Th e low lung volumes and body habitus affects can account for the increased interstitial pattern. Heart and vasculature are normal. No measurable pleural effusion and no pneumothorax. No acute bony abnorm ality seen. No acute aortic findings suspected. IMPRESSION: No acute cardiopulmonary process. Low lung volumes and body habitus affects can account for the increased interstitial pattern.
--- NOTE | 2020-01-30 12:02 | EDPHYS ---
Physician Documentation [facility] Name: Zari Posadas Age: 49 yrs Sex: Female : 1970 Arrival Date: 01/30/2020 Time: 10:52 Bed 17 Private MD: ED Physician Axel Weiner HPI: 01/29 11:52 This 49 yrs old Female presents to ER via EMS with complaints of Trouble jr8 speaking. 11:52 The patient's problem is reported as dysphasia, expressive aphasia. Onset: The jr8 symptoms/episode began/occurred acutely, yesterday. Duration: The episode is continuous. Context: occurred at home. The symptoms are alleviated by nothing. The symptoms are aggravated by nothing. Associated signs and symptoms: Pertinent positives: headache. Severity of symptoms: At their worst the symptoms were moderate in the emergency department the symptoms are unchanged. Patient's baseline: Neuro: alert and fully oriented, Motor: no deficits, Ambulation: walks without assistance, Speech: normal. The patient has not experienced similar symptoms in the past. The patient has not recently seen a physician. Patient presented by EMS with 3 days of headache and now with expressive aphasia. Currently on chemotherapy orally for non small cell metastatic lung cancer . 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 - Social history:: Smoking status: Patient denies any tobacco usage or history of. ROS: 11:52 Eyes: Negative for injury, pain, redness, and discharge, ENT: Negative for injury, jr8 pain, and discharge, Neck: Negative for injury, pain, and swelling, Cardiovascular: Negative for chest pain, palpitations, and edema, Respiratory: Negative for shortness of breath, cough, wheezing, and pleuritic chest pain, Abdomen/GI: Negative for abdominal pain, nausea, vomiting, diarrhea, and constipation, Back: Negative for injury and pain, MS/Extremity: Negative for injury and deformity, Skin: Negative for injury, rash, and discoloration. 11:52 Neuro: Positive for headache, speech changes. Exam: 11:52 Radiologist reports: Metastatic intracranial lesions with mass effect and edema jr8 11:52 Eyes: Pupils equal round and reactive to light, extra-ocular motions intact. Lids and lashes normal. Conjunctiva and sclera are non-icteric and not injected. Cornea within normal limits. Periorbital areas with no swelling, redness, or edema. ENT: Nares patent. No nasal discharge, no septal abnormalities noted. Tympanic membranes are normal and external auditory canals are clear. Oropharynx with no redness, swelling, or masses, exudates, or evidence of obstruction, uvula midline. Mucous membranes moist. Neck: Trachea midline, no thyromegaly or masses palpated, and no cervical lymphadenopathy. Supple, full range of motion without nuchal rigidity, or vertebral point tenderness. No Meningismus. Cardiovascular: Regular rate and rhythm with a normal S1 and S2. No gallops, murmurs, or rubs. Normal PMI, no JVD. No pulse deficits. Respiratory: Lungs have equal breath sounds bilaterally, clear to auscultation and percussion. No rales, rhonchi or wheezes noted. No increased work of breathing, no retractions or nasal flaring. Abdomen/GI: Soft, non-tender, with normal bowel sounds. No distension or tympany. No guarding or rebound. No evidence of tenderness throughout. Back: No spinal tenderness. No costovertebral tenderness. Full range of motion. Skin: Warm, dry with normal turgor. Normal color with no rashes, no lesions, and no evidence of cellulitis. MS/ Extremity: Pulses equal, no cyanosis. Neurovascular intact. Full, normal range of motion. 11:52 Neuro: Orientation: to person, place \T\ time. Mentation: able to follow commands, Memory: immediate memory is intact, remote memory is intact. recent memory is intact, Cranial nerves: CN I not tested, CN II- XII are normal as tested, visual thompson are intact. extraocular movements are intact, Speech is Patient with expressive aphasia . Tongue strength is normal, Cerebellar function: normal finger to nose testing, heel to clements testing is normal, Motor: moves all fours, Sensation: no obvious gross deficits, seizure activity, is not displayed by the patient, Abnormal movements: there are no abnormal movements. Vital Signs: 10:58 BP 119 / 92; Pulse 69; Resp 15; Pulse Ox 100% ; Pain 10/10; jl7 11:23 BP 102 / 68; Pulse 64; Resp 17; Pulse Ox 100% ; jl7 12:00 BP 101 / 63; Pulse 77; Resp 17; Pulse Ox 100% ; jl7 13:41 BP 114 / 43; Pulse 66; Resp 15; Pulse Ox 100% ; jl7 NIH Stroke Scale Scores: 11:00 NIHSS Score: 3 jl7 11:52 NIHSS Score: 3 jr8 MDM: 10:52 Patient medically screened. 11:52 Data reviewed: vital signs, nurses notes, lab test result(s), EKG, radiologic studies, [facility] CT scan, plain films. Data interpreted: Pulse oximetry: on room air is 100 %. Interpretation: normal. Counseling: I had a detailed discussion with the patient and/or guardian regarding: the historical points, exam findings, and any diagnostic results supporting the discharge/admit diagnosis, lab results, radiology results, the need to transfer to another facility, [facility] does not immediately have the required specialist. ED course: Spoke with Dr. Perez at [facility] who excepted transfer to [facility] for emergent consult . 01/29 10:53 Order name: Basic Metabolic Panel; Complete Time: 12:50 01/29 10:53 Order name: CBC with Diff; Complete Time: 12:50 [facility] 01/29 10:53 Order name: LFT's; Complete Time: 12:50 01/29 10:53 Order name: Magnesium; Complete Time: 12:50 01/29 10:53 Order name: NT PRO-BNP; Complete Time: 12:50 01/29 10:53 Order name: PT-INR; Complete Time: 12:50 [facility] 01/29 10:53 Order name: Troponin (emerg Dept Use Only); Complete Time: 12:50 01/29 10:53 Order name: XRAY Chest (1 view); Complete Time: 12:09 01/29 10:53 Order name: CT Head Brain wo Cont; Complete Time: 11:35 01/29 12:41 Order name: Glucose, Ancillary Testing; Complete Time: 12:50 EDMS 01/29 10:53 Order name: EKG; Complete Time: 10:54 01/29 10:53 Order name: Cardiac monitoring; Complete Time: 11:51 01/29 10:53 Order name: EKG - Nurse/Tech; Complete Time: 13:34 8 01/29 10:53 Order name: IV Saline Lock; Complete Time: 11:51 01/29 10:53 Order name: Labs collected and sent; Complete Time: 11:51 01/29 10:53 Order name: O2 Per Protocol; Complete Time: 11:51 01/29 10:53 Order name: O2 Sat Monitoring; Complete Time: 11:51 01/29 10:53 Order name: Glucose Level; Complete Time: 13:34 jr Administered Medications: 11:40 Drug: Decadron - Dexamethasone 10 mg Route: IVP; Site: right antecubital; jl7 13:35 Follow up: Response: No adverse reaction jl7 11:42 Drug: fentaNYL (PF) 50 mcg Route: IVP; Site: right antecubital; jl7 12:00 Follow up: Response: No adverse reaction; Pain is decreased jl7 12:50 Drug: D5-NS 1000 ml Route: IV; Rate: 75 ml/hr; Site: right antecubital; jl7 13:36 Follow up: IV Status: Infusion continued upon transfer jl7 13:30 Drug: fentaNYL (PF) 25 mcg Route: IVP; Site: right hand; jl7 13:33 Drug: Potassium Chloride 20 mEq Route: IV; Rate: calculated rate; Site: right hand; jl7 13:36 Follow up: IV Status: Infusion continued upon transfer jl7 13:35 Drug: Zofran (Ondansetron) 4 mg Route: IVP; Site: right hand; jl7 13:36 Follow up: Response: No adverse reaction jl7 Point of Care Testing: Blood Glucose: 13:43 Blood Glucose: 67 mg/dL; jl7 Ranges: Critical Glucose Levels:Adult <50 mg/dl or >400 mg/dl <40 mg/dl or >180 mg/dl Disposition: 01/30 08:19 Co-signature as Attending Physician, Axel TERAN I agree with the assessment and sudhakar plan of care. Disposition: 01/30/20 12:01 Transfer ordered to Other Acute Care Facility. Diagnosis are Metastatic Intracranial Lesions with edema and mass effect, Aphasia following other cerebrovascular disease. - Reason for transfer: Higher level of care. - Accepting physician is Dr. Perez. - Condition is Fair. - Problem is new. - Symptoms are unchanged. NIH Stroke Scale - NIH Stroke Score Date: 01/30/2020 Time: 11:00 Total Score = 3 1a. Level of Consciousness (LOC) - 0(Alert) 1b. Level of Consciousness (LOC) (Year \T\ Age) - 2(Neither) 1c. LOC Commands (Open \T\ Closes Eyes/Bench Worker Hollow Handle) - 0(Both) 2. Best Gaze (Lateral Gaze Paresis) - 0(Normal) 3. Visual Field Loss - 0(No visual loss) 4. Facial Palsy - 0(Normal) 5a. Left Arm: Motor (10-second hold) - 0(No drift) 5b. Right Arm: Motor (10-second hold) - 0(No drift) 6a. Left Leg: Motor (5-second hold - always test supine) - 0(No drift) 6b. Right Leg: Motor (5-second hold - always test supine) - 0(No drift) 7. Limb Ataxia (finger/nose \T\ heel/clements - test with eyes open) - 0(Absent) 8. Sensory Loss (pinprick arms/legs/face) - 0(Normal) 9. Best Language: Aphasia (description/naming/reading) - 1(Mild to moderate aphasia) 10. Dysarthria (speech clarity - read or repeat words) - 0(Normal) 11. Extinction and Inattention (visual/tactile/auditory/spatial/personal) - 0(No abnormality) Initials: jl7 NIH Stroke Scale - NIH Stroke Score Date: 01/30/2020 Time: 11:52 Total Score = 3 1a. Level of Consciousness (LOC) - 0(Alert) 1b. Level of Consciousness (LOC) (Year \T\ Age) - 2(Neither) 1c. LOC Commands (Open \T\ Closes Eyes/Bench Worker Hollow Handle) - 0(Both) 2. Best Gaze (Lateral Gaze Paresis) - 0(Normal) 3. Visual Field Loss - 0(No visual loss) 4. Facial Palsy - 0(Normal) 5a. Left Arm: Motor (10-second hold) - 0(No drift) 5b. Right Arm: Motor (10-second hold) - 0(No drift) 6a. Left Leg: Motor (5-second hold - always test supine) - 0(No drift) 6b. Right Leg: Motor (5-second hold - always test supine) - 0(No drift) 7. Limb Ataxia (finger/nose \T\ heel/clements - test with eyes open) - 0(Absent) 8. Sensory Loss (pinprick arms/legs/face) - 0(Normal) 9. Best Language: Aphasia (description/naming/reading) - 1(Mild to moderate aphasia) 10. Dysarthria (speech clarity - read or repeat words) - 0(Normal) 11. Extinction and Inattention (visual/tactile/auditory/spatial/personal) - 0(No abnormality) Initials: jr8 Signatures: Dispatcher [employer] EDAxel Alamo MD MD cha Roszak, Josh, PA PA jr8 Malcolm Green RN RN jl7 Corrections: (The following items were deleted from the chart) 01/29 13:55 12:01 01/30/2020 12:01 Transfer ordered to Other Acute Care Facility. Diagnosis jl7 is Metastatic Intracranial Lesions with edema and mass effect; Aphasia following other cerebrovascular disease. Reason for transfer: Higher level of care. Accepting physician is Dr. Perez. Condition is Fair. Problem is new. Symptoms are unchanged. jr8
--- NOTE | 2020-01-30 12:02 | ER ---
Nurse's Notes [facility] Name: Zari Posadas Age: 49 yrs Sex: Female : 1970 Arrival Date: 01/30/2020 Time: 10:52 Bed 17 Private MD: Diagnosis: Metastatic Intracranial Lesions with edema and mass effect;Aphasia following other cerebrovascular disease Presentation: 01/29 10:58 Chief complaint: EMS states: Left sided ABREU x 3 days, aphasia started yesterday about jl7 0800 and worsening. Coronavirus screen: Client denies travel out of the [place] in the last 14 days. At this time, the client does not indicate any symptoms associated with coronavirus-19. Ebola Screen: No symptoms or risks identified at this time. Initial Sepsis Screen: Does the patient meet any 2 criteria? No. Patient's initial sepsis screen is negative. Does the patient have a suspected source of infection? No. Patient's initial sepsis screen is negative. Risk Assessment: Do you want to hurt yourself or someone else? Patient reports no desire to harm self or others. Onset of symptoms was January 27, 2020. Care prior to arrival: IV initiated. 20 GA, in the right antecubital area, Glucose check: 76. Transition of care: patient was not received from another setting of care. 10:58 Method Of Arrival: EMS: [facility] 7 10:58 Acuity: TYSHAWN 2 jl7 11:08 An acute neurological deficit is present. The charge nurse has been notified. The jl7 patient has been moved to a treatment area. The patients blood glucose was checked before arriving to the hospital and was found to be normal. Triage Assessment: 11:06 General: Appears in no apparent distress. uncomfortable, Behavior is cooperative, jl7 appropriate for age, anxious. Pain: Complains of pain in left mu-ism Pain currently is 10 out of 10 on a pain scale. Neuro: Level of Consciousness is awake, alert, obeys commands, Oriented to person, place, time, situation, Dowel Setting Machine Operator are equal bilaterally Moves all extremities. Full function Speech with expressive aphasia noted, Facial symmetry appears normal. Cardiovascular: Patient's skin is warm and dry. Respiratory: Airway is patent Respiratory effort is even, unlabored, Respiratory pattern is regular, symmetrical. Derm: Skin is pink, warm \T\ dry. 11:08 The onset of the patients symptoms was January 27, 2020 at 11:09. 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/A - Post-menopause jl7 Stroke Activation: Symptom onset > 6 hours Physician: Stroke Attending; Name: ; Notified At: ; Arrived At: Physician: Chief Stroke Resident; Name: ; Notified At: ; Arrived At: Physician: Stroke Resident; Name: ; Notified At: ; Arrived At: Physician: ED Attending; Name: ; Notified At: ; Arrived At: Physician: ED Resident; Name: ; Notified At: ; Arrived At: Historical: - Allergies: 11: No Known Allergies; jl7 - Home Meds: :06 Lorazepam Oral [Active]; venlafaxine oral oral [Active]; diphenoxylate-atropine Oral jl7 [Active]; crizotinib oral oral [Active]; - PMHx: 11:06 lung cancer; jl7 - PSHx: 11:06 Cholecystectomy; Fallopian tubes removed; lap band; jl7 - Immunization history:: Adult Immunizations unknown. - Social history:: Smoking status: Patient denies any tobacco usage or history of. Screenin:00 Abuse screen: Denies threats or abuse. Denies injuries from another. Nutritional jl7 screening: No deficits noted. Tuberculosis screening: No symptoms or risk factors identified. Fall Risk IV access (20 points). Total Rogers Fall Scale indicates No Risk (0-24 pts). Assessment: 11:00 T-PA (Activase) Screening: Contraindications: Patient reports onset of signs and jl7 symptoms of stroke greater than 6 hours ago: Yes. 11:15 VAN Scoring: Arm Drift: Patients demonstrates NO arm weakness. Patient is VAN Negative. jl7 The patient has not been NPO before screening. The patient is currently on the following diet: Regular The patient is alert, and able to follow commands. The patient does not exhibit slurred or garbled speech. The patient is not exhibiting difficulty speaking. The patient does not exhibit difficulty understanding words. The patient is able to swallow own secretions with no drooling or need for suction. Patient tolerated one teaspoon of water. No drooling, immediate coughing, gurgling, or clearing of the throat was noted. The patient tolerated 90mL of water. No drooling, immediate coughing, gurgling, or clearing of the throat was noted. The patient passed the bedside swallow screening. Oral medications may be given as ordered. Contact Physician for further diet orders. Provider notified of bedside swallow screening results: Wilbur ABDUL. 11:15 General: See triage assessment. jl7 12:00 Reassessment: Patient appears in no apparent distress at this time. No changes from jl7 previously documented assessment. Patient and/or family updated on plan of care and expected duration. Pain level reassessed. Patient is alert, oriented x 3, equal unlabored respirations, skin warm/dry/pink. 13:00 Reassessment: Family remains at bedside. jl7 13:50 Reassessment: EMS at bedside to transport pt. jl7 Vital Signs: 10:58 BP 119 / 92; Pulse 69; Resp 15; Pulse Ox 100% ; Pain 10/10; jl7 11:23 BP 102 / 68; Pulse 64; Resp 17; Pulse Ox 100% ; jl7 12:00 BP 101 / 63; Pulse 77; Resp 17; Pulse Ox 100% ; jl7 13:41 BP 114 / 43; Pulse 66; Resp 15; Pulse Ox 100% ; jl7 NIH Stroke Scale Scores: 11:00 NIHSS Score: 3 jl7 11:52 NIHSS Score: 3 jr8 ED Course: 10:52 Patient arrived in ED. [facility] 10:52 [facility]ren[facility] jr8 10:52 Axel Weiner MD is Attending Physician. jr8 10:57 Malcolm Green, RN is Primary Nurse. jl7 10:59 Triage completed. jl7 11:00 Patient has correct armband on for positive identification. Placed in gown. Bed in low jl7 position. Call light in reach. Side rails up X 1. hospital monitor on. Pulse ox on. NIBP on. 11:00 Maintain EMS IV. Dressing intact. Good blood return noted. Site clean \T\ dry. Gauge \T\ jl 7 site: 20 right AC. 11:06 Arm band placed on right wrist. jl7 11:07 XRAY Chest (1 view) In Process Unspecified. EDMS 11:16 CT Head Brain wo Cont In Process Unspecified. EDMS 11:35 initiated a transfer with [facility] from the [facility] Transfer center. eb 11:[address] Perez the emergency room doctor concrete mixer for [facility] for patient transfer consultation. 11:[address] given by Dr. Gage Perez, patient has been accepted to [facility]/ report to be called to [phone]. 12:00 Initial lab(s) drawn, by me, sent to lab. Urine collected: clean catch specimen, clear, jl7 EKG done, by ED staff, reviewed by Axel Weiner MD. 13:30 Inserted saline lock: 22 gauge in right hand, using aseptic technique. jl7 13:50 No provider procedures requiring assistance completed. Patient transferred, IV remains jl7 in place. intact, No redness/swelling at site. Administered Medications: 11:40 Drug: Decadron - Dexamethasone 10 mg Route: IVP; Site: right antecubital; jl7 13:35 Follow up: Response: No adverse reaction jl7 11:42 Drug: fentaNYL (PF) 50 mcg Route: IVP; Site: right antecubital; jl7 12:00 Follow up: Response: No adverse reaction; Pain is decreased jl7 12:50 Drug: D5-NS 1000 ml Route: IV; Rate: 75 ml/hr; Site: right antecubital; jl7 13:36 Follow up: IV Status: Infusion continued upon transfer jl7 13:30 Drug: fentaNYL (PF) 25 mcg Route: IVP; Site: right hand; jl7 13:33 Drug: Potassium Chloride 20 mEq Route: IV; Rate: calculated rate; Site: right hand; jl7 13:36 Follow up: IV Status: Infusion continued upon transfer jl7 13:35 Drug: Zofran (Ondansetron) 4 mg Route: IVP; Site: right hand; jl7 13:36 Follow up: Response: No adverse reaction jl7 Point of Care Testing: Blood Glucose: 13:43 Blood Glucose: 67 mg/dL; jl7 Ranges: Outcome: 12:01 ER care complete, transfer ordered by [facility] 13:50 Transferred by ground EMS to other acute care facility: [facility]. Transfer form jl7 completed. X-rays sent w/ patient. 13:50 Condition: stable 13:50 Discharge instructions given to patient, family, Instructed on the need for transfer, Demonstrated understanding of instructions. 13:55 Patient left the ED. jl7 NIH Stroke Scale - NIH Stroke Score Date: 01/30/2020 Time: 11:00 Total Score = 3 1a. Level of Consciousness (LOC) - 0(Alert) 1b. Level of Consciousness (LOC) (Year \T\ Age) - 2(Neither) 1c. LOC Commands (Open \T\ Closes Eyes/Validation Manager) - 0(Both) 2. Best Gaze (Lateral Gaze Paresis) - 0(Normal) 3. Visual Field Loss - 0(No visual loss) 4. Facial Palsy - 0(Normal) 5a. Left Arm: Motor (10-second hold) - 0(No drift) 5b. Right Arm: Motor (10-second hold) - 0(No drift) 6a. Left Leg: Motor (5-second hold - always test supine) - 0(No drift) 6b. Right Leg: Motor (5-second hold - always test supine) - 0(No drift) 7. Limb Ataxia (finger/nose \T\ heel/clements - test with eyes open) - 0(Absent) 8. Sensory Loss (pinprick arms/legs/face) - 0(Normal) 9. Best Language: Aphasia (description/naming/reading) - 1(Mild to moderate aphasia) 10. Dysarthria (speech clarity - read or repeat words) - 0(Normal) 11. Extinction and Inattention (visual/tactile/auditory/spatial/personal) - 0(No abnormality) Initials: jl7 NIH Stroke Scale - NIH Stroke Score Date: 01/30/2020 Time: 11:52 Total Score = 3 1a. Level of Consciousness (LOC) - 0(Alert) 1b. Level of Consciousness (LOC) (Year \T\ Age) - 2(Neither) 1c. LOC Commands (Open \T\ Closes Eyes/Validation Manager) - 0(Both) 2. Best Gaze (Lateral Gaze Paresis) - 0(Normal) 3. Visual Field Loss - 0(No visual loss) 4. Facial Palsy - 0(Normal) 5a. Left Arm: Motor (10-second hold) - 0(No drift) 5b. Right Arm: Motor (10-second hold) - 0(No drift) 6a. Left Leg: Motor (5-second hold - always test supine) - 0(No drift) 6b. Right Leg: Motor (5-second hold - always test supine) - 0(No drift) 7. Limb Ataxia (finger/nose \T\ heel/clements - test with eyes open) - 0(Absent) 8. Sensory Loss (pinprick arms/legs/face) - 0(Normal) 9. Best Language: Aphasia (description/naming/reading) - 1(Mild to moderate aphasia) 10. Dysarthria (speech clarity - read or repeat words) - 0(Normal) 11. Extinction and Inattention (visual/tactile/auditory/spatial/personal) - 0(No abnormality) Initials: jrBeba Signatures: Dispatcher [employer] EDAxel Alamo MD MD cha Roszak, Josh, PA PA jr8 Malcolm Green RN RN jl7 Isabela Ramirez
[2020-01-30 12:13] LABS: Absolute Lymphocytes (CBC) 0.5 K/uL (0.7-4.9); Basophils % 0.2 % (0-1.3); Lymphocytes % 14.7 % (15.3-44.8); MPV 10.1 fL (7.6-11.3); RBC Red Blood Cell Count 3.98 M/uL (3.86-4.86)
[2020-01-30 12:14] LABS: Protime INR 1.12
[2020-01-30] MEDS ORDERED: D5 0.9 NS 1,000 ML IV ONE (12:31)
[2020-01-30 12:37] LABS: ALT/SGPT 43 U/L (12-78); AST/SGOT 25 U/L (15-37); Albumin 2.3 g/dL (3.4-5.0); Alkaline Phosphatase 129 U/L (45-117); BUN Blood Urea Nitrogen 7 mg/dL (7-18); Bicarbonate 30 mmol/L (21-32); Bilirubin Direct < 0.1 mg/dL (0-0.2); Bilirubin Total 0.4 mg/dL (0.2-1.0); Glucose Level 80 mg/dL (74-106); Magnesium 1.8 mg/dL (1.8-2.4); NT PRO-BNP 344 pg/mL (<125); Sodium Level 143 mmol/L (136-145); Troponin (Emerg Dept Use Only) < 0.02 ng/mL (0.0-0.045)
[2020-01-30] MEDS ORDERED: KCL 20 MEQ/100 mL IVPB 20 MEQ/100 ML BAG IV ONE (13:24)
[2020-01-30 14:08] VITALS: O2SAT 100
[2020-01-30 14:12] VITALS: BP 114/43
[2020-01-30] MEDS ORDERED: ONDANSETRON 4 MG/2 ML VIAL ONE (14:26)
--- NOTE | 2020-02-01 07:47 | EKG ---
Test Date: 2020-01-30 Test Time: 12:10:23 Waxing Machine Operator Helper: CARLY MEASUREMENT RESULTS: Intervals: Rate: 64 MA: 138 QRSD: 92 QT: 456 QTc: 470 [place]: P: 24 MA: 138 QRS: 21 T: 39 INTERPRETIVE STATEMENTS: Normal sinus rhythm Nonspecific T wave abnormality Prolonged QT Abnormal ECG No previous ECG available for comparison Electronically Signed On 02-01-20 07:41:23 AXMINSTER RUG SETTER by Barrett Ortiz
== END 2020-01-30 13:55 ==
LOC: ER 10:42
DX: I69.920 Aphasia following unspecified cerebrovascular disease (principal); C79.31 Secondary malignant neoplasm of brain; G93.6 Cerebral edema; C34.90 Malignant neoplasm of unspecified part of unspecified bronchus or lung; R29.703 NIHSS score 3
CPT/HCPCS: 93005; 85025; 80048; 36415; 83735; 85610; 82947; 80076; 84484; 83880; 70450; 71045; 99285; J3480; J3010 ×2; J1100; J7042; J2405

== ENCOUNTER 2020-07-09 11:07 | Inpatient (IN) | payer OTHER ==
--- OUTSIDE RECORDS SUMMARY | 2020-07-09 11:12 | XMS REPORT | Continuity of Care Document ---
:1970 Author Organization [facility] t Address [address] [place] [place] [address] Care Team Providers Name Role Phone SANDRA Primary Care Physician Unavailable Husam DRAKENP, E Attending Clinician Jose TERAN Attending Clinician Jhoana TERAN, F Attending Clinician Alejandro WOODSON Attending Clinician Mike CARABALLO, A Attending Clinician Unavailable Carlene Emery MD Attending Clinician Sandra TERAN Attending Clinician Nita Calderón MD Attending Clinician Ghassan CARABALLO Attending Clinician Unavailable Jibmo Enriquez APN Attending Clinician Chelsie TERAN Attending Clinician Marcin HOLDER, E Attending Clinician Unavailable Arnold TERAN PhD, H Attending Clinician Isabel TERAN Attending Clinician Unavailable Alla BOLIVAR Attending Clinician Carmelo Rodriguez RN, A Attending Clinician Unavailable Joni TERAN, L Attending Clinician Aguila BUSINESS CENTER MANAGER, L Attending Clinician Janie TERAN, F. Attending Clinician Rafaela ATKINSON Attending Clinician Hany HOLDER Attending Clinician Unavailable Mayco HOLDER, F Attending Clinician Unavailable Juilo ARENAS Attending Clinician Mendel Barrera MD, T Attending Clinician Germán TERAN Attending Clinician Claudia TERAN Attending Clinician Jairo TERAN Attending Clinician Gifford, S Attending Clinician JOSE Attending Clinician Unavailable Nery WEINER Attending Clinician Unavailable Al TERAN Attending Clinician Payers Payer Name Policy Type Policy Number Effective Date Expiration Date Jj SANTIZO MANAGED [id number] 2018 Andana moura CARECIGNA O 00:00:00 POS OPEN [id number] 2019-Monika Roper Problems Condition Condition Condition Status Onset Resolution Last Treating Co mments Source Name Details Category Date Date Treatment Clinician Date Lesion of Lesion of Disease Active 2019-03 Overview: brain brain 04-04 Added Anderso 00:00: automatic n 00 ally from request for surgery [id number] Hypokalemi Hypokalemi Disease Active 2019-03 M D a a 04-01 Anderso 00:00: n 00 Disorder Disorder Disease Active 2019-03 of fluid of fluid 04-01 Michael o AND/OR AND/OR 00:00: n electrolyt electrolyt 00 e e 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 Simba rso neoplastic neoplastic 00:00: n disease disease 00 Cerebral Cerebral Disease Active 2019-03 edema edema 03-31 Anderso 00:00: n 00 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 00 Aphasia Aphasia Disease Active 2019-03 03-31 Anderso 00:00: n 00 Other Other Disease Active Overview: dysphagia dysphagia 3-31 Added Simba rso 00:00: automatic n 00 ally from request for surgery [id number] Gastro-eso Gastro-eso Disease Active Overview : phageal phageal 3-04 Added Anderso reflux reflux 00:00: automatic n disease disease 00 ally from without without request esophagiti esophagiti for s s surgery [id number] Hematemesi Hematemesi Disease Active Overview : s s 3-04 Added Anderso 00:00: automatic n 00 ally from request for surgery [id number] Heartburn Heartburn Disease Active 3-11 Anderso 00:00: n 00 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 -14 Michael o 00:00: n 00 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, of lung, 00 TNM stage TNM stage 4 4 Dysphagia Dysphagia Disease Active 5-15 Anderso 00:00: n 00 Choking Choking Disease Active 5-15 Anderso 00:00: n 00 Thyroid Thyroid Disease Active Overview: cancer cancer 5-15 Mandatory Anderso 00:00: CMS n 00 ICD-10 2020 UPDATE Adjustment 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 Michael o with mixed with mixed n anxiety anxiety and and depressed depressed mood mood Other Other Disease Active psychologi psychologi An derso pito or pito or n physical physical stress, stress, not not elsewhere elsewhere classified classified Dysarthria Dysarthria Disease Active M D Anderso n Malignant Malignant Disease Active neoplasm neoplasm Michael o related related n fatigue fatigue Allergies, Adverse Reactions, Alerts Allergy Allergy Status Severity Reaction(s) Onset Inactive Treating Comm ents Source Name Type Date Date Clinician No Known DA Active U 2013-03 [facility] 04[facility] 00:00: [address] Social History Social Habit Start Date Stop Date Quantity Comments Source History of tobacco Cigarette Smoker MD Weiner use Sex Assigned At F MD Rodriguez on Exposure to Not sure MD Weiner SARS-CoV-2 (event) Tobacco use and 2020-06-09 2020-06-09 Never used MD Rodriguez on exposure 00:00:00 00:00:00 Alcohol Comment 2019-05-31 2019-05-31 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 Clinician (SIG) Name Name ondansetron Yes Nausea and 8mg Take 1 MD (ZOFRAN) 8 4-22 vomiting tablet (8 Anderso mg tablet 00:00: mg) by n 00 mouth every 8 (eight) hours as needed for nausea or vomiting. diphenoxyla Yes Diarrhea 1{tbl} Take 1-2 MD te-atropine 4-07 tablets by Cristy derso (LomotiL) 00:00: mouth n 2.5 00 every 6 mg-0.025 mg (six) per tablet hours as needed for diarrhea. Not to exceed 8 tablets per day traMADol Yes Myalgia, 50mg Take 1 MD (Ultram) 50 4-07 not tablet (50 An derso mg tablet 00:00: otherwise mg) by n 00 specified mouth 2 (two) times a day as needed for moderate pain. diazePAM Yes TAKE 1/2 MD (VALIUM) 10 3-11 TABLET (5 And erso mg tablet 00:00: MG) BY n 00 MOUTH DAILY NEEDED potassium Yes Malignant 40meq Take 2 MD chloride 3-03 neoplasm of packets A nderso (Klor-Con) 00:00: unspecified (40 mEq) n 20 mEq 00 part of by mouth packet unspecified twice bronchus or daily. lung Mix contents of 1 packet in 4 ounces (120 mL) of water or juice. Stir well and drink promptly. memantine Yes Secondary TAKE ONE MD (Namenda) 1-21 malignant TABLET BY Anderso 10 mg 00:00: neoplasm of MOUTH n tablet 00 brain DAILY FOR 7 DAYS, THEN TAKE 1 TABLET BY MOUTH TWO TIMES A DAY FOR 6 MONTHS. methocarbam 2019-03 Yes Lesion of 500mg Take 1 MD ol 1-29 brain tablet Anderso (ROBAXIN) 00:00: (500 mg) n 500 mg 00 by mouth tablet every 6 (six) hours as needed for muscle spasms. dexamethaso 2019-03 Yes Lesion of Take 2 MD ne 1-29 brain tablets by Anderso (DECADRON) 00:00: mouth n 2 mg tablet 00 every 6 hours for 3 days THEN take 2 tablets every 8 hours for 3 days, then take 1 tablet every 8 hours for 3 days, then take 1 tablet every 12 hours for 3 days, then take 1 tablet daily for 3 days, THEN STOP acetaminoph 2019-03 Yes Lesion of 1{tbl} Take 1 MD en-codeine - brain tablet by And erso (TYLENOL 00:00: mouth 3 n #3) 300 00 (three) mg-30 mg times a tablet day as needed for mild pain. levETIRAcet 2019-03 Yes Secondary 1500mg Take one MD am (Keppra) - malignant and a half Anderso 1000 mg 00:00: neoplasm of tablets n tablet 00 brain (1,500 mg) by mouth twice daily. Please follow up with Neurosurge ry after procedure. docusate 2019-03- No Lesion of 100mg Take 1 MD sodium 04-16-24 brain capsule Anderso (COLACE) 00:00: 00:00 (100 mg) n 100 mg 00 :00 by mouth capsule twice daily. pantoprazol 2019-03 Yes Cerebral 40mg Take 1 MD e 1-18 edema tablet (40 Anderso (PROTONIX) 00:00: mg) by n 40 mg EC 00 mouth tablet daily. Follow up with RIKY elizabeth 2019-03 Yes Cerebral 2{tbl} Take 2 MD (SENOKOT) -17 edema tablets by And erso 8.6 mg 00:00: mouth 2 n tablet 00 (two) times a day as needed for constipati on. polyethylen 2019-03- No Cerebral Fill M D e glycol 04-04 03-24 edema powder to Simba rso (GLYCOLAX) 00:00: 00:00 top of n 17 00 :00 white gram/dose section in powder cap which is marked to indicate the correct dose (17 g) stir and dissolve in any 4 to 8 ounces of beverage (cold, hot or room temperatur e) then drink once a day. dexamethaso 2019-03- No Cerebral 4mg Take 1 MD ne 04-04 edema tablet (4 Anderso (DECADRON) 00:00: 00:00 mg) by n 4 mg tablet 00 :00 mouth every 6 (six) hours. Please follow up with Neurosurge ry for taper after surgery. levETIRAcet 2019-03- No Secondary 1000mg Take 1 MD am (Keppra) 04-04 malignant tablet Anderso 1000 mg 00:00: 00:00 neoplasm of (1,000 mg) n tablet 00 :00 brain by mouth twice daily. Please follow up with Neurosurge ry after procedure. alectinib 2019-03 Yes Malignant 600mg Take 4 MD (Alecensa) 04-03 neoplasm of capsules Anderso 150 mg cap 00:00: unspecified (600 mg) n capsule 00 part of by mouth unspecified twice bronchus or daily. lung Administer with food. crizotinib 2019-03- No Malignant 200mg Take 1 MD (Xalkori) 03-27 neoplasm of capsule Anderso 200 mg 00:00: 00:00 unspecified (200 mg) n capsule 00 :00 part of by mouth unspecified twice bronchus or daily. lung potassium 2019-03- No Malignant 40meq Take 2 MD chloride 03-22 0303 neoplasm of packets Anderso (Klor-Con) 00:00: 00:00 unspecified (40 mEq) n 20 mEq 00 :00 part of by mouth packet unspecified daily. bronchus or Mix lung contents of 1 packet in 4 ounces (120 mL) of water or juice. Stir well and drink promptly. venlafaxine 2019-03 Yes TAKE 1 MD (EFFEXOR-XR -03 CAPSULE Markus so ) 150 mg 24 00:00: (150 MG) n hr capsule 00 BY MOUTH DAILY WITH FOOD zolpidem 2019-03 Yes TAKE 1 MD (AMBIEN) 5 -03 TABLET (5 Simba rso mg tablet 00:00: MG) BY n 00 MOUTH DAILY AT BEDTIME venlafaxine 2019-03- No TAKE 1 MD (EFFEXOR-XR 03-21 CAPSULE Simba rso ) 75 mg 24 00:00: 00:00 (75 MG) BY n hr capsule 00 :00 MOUTH DAILY WITH FOOD LORazepam 2019-03- No Malignant Take 1 tab MD (Ativan) 0 11-17 neoplasm of by mouth Anderso 0.5 mg 00:00: 00:00 unspecified 30 minutes n tablet 00 :00 part of prior to unspecified MRI, may bronchus or repeat x 1 lung if needed. acetaminoph 2019-03- No Malignant 1{tbl} Take 1 MD en-codeine 0 10-13 neoplasm of tablet by Anderso (TYLENOL 00:00: 04:59 unspecified mouth n #2) 300-15 00 :00 part of every 4 mg per unspecified (four) tablet bronchus or hours as lung needed for moderate pain for up to 10 days. diphenoxyla 2020- No Diarrhea 1{tbl} Take 1-2 MD te-atropine 9- 04-07 tablets by A nderso (LomotiL) 00:00: 00:00 mouth n 2.5 00 [...] to exceed 8 tablets per day ondansetron 2020- No Nausea and 8mg Take 1 MD (ZOFRAN) 8 7- 04-22 vomiting tablet (8 Anderso mg tablet 00:00: 00:00 mg) by n 00 :00 mouth every 8 (eight) hours as needed for nausea or vomiting. pantoprazol 2019- No Malignant 40mg Take 1 MD e 3-04 11-04 neoplasm of tablet (40 A nderso [...] needed for nausea or vomiting. crizotinib 2018-03- Malignant 200mg Take 1 MD (XALKORI) 2- 11-04 neoplasm of capsule Anderso 200 mg 00:00: 00:00 unspecified (200 mg) n capsule 00 :00 part of by mouth unspecified twice bronchus or daily. lung crizotinib Malignant 200mg Take 1 MD (XALKORI) 5-17 neoplasm of capsule Anderso 200 mg 00:00: 00:00 unspecified (200 mg) n capsule 00 :00 part of by mouth unspecified twice bronchus or daily. lung XALKORI 250 2019- Malignant TAKE 1 MD mg capsule 5- neoplasm of CAPSULE Anderso 00:00: 00:00 unspecified TWICE A n 00 :00 part of DAY unspecified bronchus or lung pantoprazol 2019- No Heartburn 40mg Take 1 MD e 301-20 tablet (40 Anderso (PROTONIX) 00:00: 00:00 mg) by n 40 mg EC 00 :00 mouth tablet daily. Take at least 2-3 hours before or after Xalkori dose. citalopram Depressive 10mg Take 1 MD (CeleXA) 10 1-30 11-17 disorder, tablet (10 Anderso mg tablet 00:00: 00:00 not mg) by n 00 :00 otherwise mouth at specified bedtime. loperamide 2017-03 Yes Malignant 2mg Take 1 MD (IMODIUM) 2 2-19 neoplasm of capsule (2 Anderso mg capsule 00:00: unspecified mg) by n 00 part of mouth as unspecified needed for bronchus or diarrhea. lung Take 2 cap initially, then 1 cap. after each loose BM. Max 8 cap/day. furosemide Malignant 10mg Take 0.5 MD (LASIX) 20 5-23 03-24 neoplasm of tablets Anderso mg tablet 00:00: 00:00 unspecified (10 mg) by n 00 :00 part of mouth unspecified daily as bronchus or needed for lung edema. acetaminoph 2019- No Malignant 5mL Take 5 mL enMoisecodeine 08-08 neoplasm of by mouth Anderso (TYLENOL 00:00: 00:00 unspecified every 6 n with 00 :00 part of (six) CODEINE) unspecified hours as 120-12 mg/5 bronchus or needed mL oral lung (moderate solution pain). diphenoxyla 2019- No Diarrhea 1{tbl} Take 1 te-atropine 07-1119 tablet by An derso (LOMOTIL) 00:00: 00:00 mouth n 2.5 00 :00 every 6 mg-0.025 mg (six) per tablet hours as needed for diarrhea. Not to exceed 8 tablets per day prochlorper 2019- No Nausea and 10mg Take 1 azine 09-2117 vomiting tablet (10 And erso (COMPAZINE) 00:00: 00:00 mg) by n 10 mg 00 :00 mouth tablet every 6 (six) hours as needed for nausea or vomiting. Vital Signs Vital Name Observation Time Observation Value Comments Source Systolic blood 2020-06-09 16:23:07 91 mm[Hg] pressure Diastolic blood 2020-06-09 16:23:07 65 mm[Hg] MD Cristy romero pressure Heart rate 2020-06-09 16:23:07 79 /min MD Markus clifford Body temperature 2020-06-09 16:20:45 36.78 Clary MD Shelby gorman Respiratory rate 2020-06-09 16:20:45 18 /min MD Shelby gorman Oxygen saturation in 2020-06-09 16:20:45 97 /min MD Weiner Arterial blood by Pulse oximetry Body weight 2020-06-09 16:18:00 91.6 kg MD Markus clifford BMI 2020-06-09 16:18:00 38.13 kg/m2 MD Markus clifford Body height 2020-02-11 01:30:00 155 cm pre-Op mohsen. MD Simba mason patient is post crani on bedrest Procedures Procedure Date / Time Performed Performing Clinician Sourc e AP IHC PD-L1 2020-06-10 01:29:29 Carolyn Casiano MD, MD NGS BLOOD CONTROL 2020-06-09 16:26:[address] CHEST ABDOMEN PELVIS W 2020-06-09 14:59:31 Dalia Weiner MD CONTRAST CREATINE KINASE 2020-06-09 12:56:00 Carolyn Casiano MD COMPLETE BLOOD COUNT W/ 2020-06-09 12:56:00 Dalia Weiner MD DIFFERENTIAL COMPREHENSIVE METABOLIC PANEL 2020-06-09 12:56:00 Talia Weiner MD Results CBC 2020-06-09 12:56:00 Dalia Weiner MD MANUAL DIFFERENTIAL 2020-06-09 12:56:00 Dalia Weiner MD And erson GLUCOSE LEVEL 2020-06-09 12:56:00 Dalia Weiner MD BLOOD UREA NITROGEN 2020-06-09 12:56:00 Dalia Weiner MD And erson ELECTROLYTE PANEL 2020-06-09 12:56:00 Dalia Weiner MD Markus son SERUM CREATININE 2020-06-09 12:56:00 Dalia Weiner MD Michael on .GLOMERULAR FILTRATION RATE 2020-06-09 12:56:00 Dalia Weiner MD CALCIUM LEVEL TOTAL 2020-06-09 12:56:00 Dalia Weiner MD And erson ALBUMIN LEVEL 2020-06-09 12:56:00 Dalia Weiner MD ALKALINE PHOSPHATASE 2020-06-09 12:56:00 Dalia Weiner MD ALANINE AMINOTRANSFERASE 2020-06-09 12:56:00 Dalia Weiner ASPARTATE AMINOTRANSFERASE 2020-06-09 12:56:00 Dalia Weiner MD TOTAL PROTEIN 2020-06-09 12:56:00 Dalia Weiner MD FRACTIONATED BILIRUBIN 2020-06-09 12:56:00 Dalia Weiner MD MRI BRAIN W WO CONTRAST 2020-04-06 20:43:10 Katelyn Quinones COVID-19 (SARS-COV-2) 2020-04-04 13:57:00 Bree Calderón MD nderson PCR-ASYMPTOMATIC MC CT CHEST W CONTRAST 2020-04-04 13:41:00 Dalia Weiner MD And erson POC CREATININE 2020-04-04 13:15:00 Dalia Weiner MD Andsylviao martell COMPLETE BLOOD COUNT W/ 2020-04-04 12:51:00 Dalia Weiner MD DIFFERENTIAL COMPREHENSIVE METABOLIC PANEL 2020-04-04 12:51:00 Talia Weiner MD Results CBC 2020-04-04 12:51:00 Dalia Weiner MD Andsylviao martell MANUAL DIFFERENTIAL 2020-04-04 12:51:00 Dalia Weiner MD And erson GLUCOSE LEVEL 2020-04-04 12:51:00 Dalia Weiner MD Andana moura BLOOD UREA NITROGEN 2020-04-04 12:51:00 Dalia Weiner MD And erson ELECTROLYTE PANEL 2020-04-04 12:51:00 Dalia Weiner MD Markus son SERUM CREATININE 2020-04-04 12:51:00 Dalia Weiner MD Michael on .GLOMERULAR FILTRATION RATE 2020-04-04 12:51:00 Dalia Weiner MD CALCIUM LEVEL TOTAL 2020-04-04 12:51:00 Dalia Weiner MD And erson ALBUMIN LEVEL 2020-04-04 12:51:00 Dalia Weiner MD Andsylviao martell ALKALINE PHOSPHATASE 2020-04-04 12:51:00 Dalia Weiner MD ALANINE AMINOTRANSFERASE 2020-04-04 12:51:00 Dalia Weiner ASPARTATE AMINOTRANSFERASE 2020-04-04 12:51:00 Dalia Weiner MD TOTAL PROTEIN 2020-04-04 12:51:00 Dalia Weiner MD FRACTIONATED BILIRUBIN 2020-04-04 12:51:00 Dalia Weiner MD MRI CERVICAL THORACIC LUMBAR 2020-02-25 02:10:00 Blanco Angeles MD SPINE WO CONTRAST BASIC METABOLIC PANEL, 2020-02-15 11:32:00 MD Husam Batista CALCIUM TOTAL Mark Barfield MAGNESIUM LEVEL 2020-02-15 11:32:00 Hiram Dailey MD And erson Mark Barfield PHOSPHORUS LEVEL 2020-02-15 11:32:00 MD Cristy Batista COMPLETE BLOOD COUNT W/ 2020-02-15 11:32:00 MD Husam Batista DIFFERENTIAL Mark Barfield GLUCOSE LEVEL 2020-02-15 11:32:00 Hiram Dailey MD And jeff Barfield BLOOD UREA NITROGEN 2020-02-15 11:32:00 MD Husam Batista ELECTROLYTE PANEL 2020-02-15 11:32:00 MD Shelby Batista SERUM CREATININE 2020-02-15 11:32:00 MD Cristy Batista .GLOMERULAR FILTRATION RATE 2020-02-15 11:32:00 MD Husam Gan CALCIUM LEVEL TOTAL 2020-02-15 11:32:00 MD Husam Batista Results CBC 2020-02-15 11:32:00 Hiram Dailey MD And jeff Barfield MANUAL DIFFERENTIAL 2020-02-15 11:32:00 MD Husam Batista POC GLUCOSE SCREEN 2020-02-15 05:06:00 Frannie Emery MD POC GLUCOSE SCREEN 2020-02-15 01:17:00 Frannie Emery MD POC GLUCOSE SCREEN 2020-02-14 20:45:00 Frannie Emery MD POC GLUCOSE SCREEN 2020-02-14 15:00:00 Frannie Emery MD BASIC METABOLIC PANEL, 2020-02-14 11:13:00 MD Husam Batista CALCIUM TOTAL Mark Barfield MAGNESIUM LEVEL 2020-02-14 11:13:00 Hiram Dailey MD And jeff Barfield PHOSPHORUS LEVEL 2020-02-14 11:13:00 MD Cristy Batista COMPLETE BLOOD COUNT W/ 2020-02-14 11:13:00 MD Husam Batista DIFFERENTIAL Mark Barfield GLUCOSE LEVEL 2020-02-14 11:13:00 Hiram Dailey MD And jeff Barfield BLOOD UREA NITROGEN 2020-02-14 11:13:00 MD Husam Batista ELECTROLYTE PANEL 2020-02-14 11:13:00 MD Shelby Batista SERUM CREATININE 2020-02-14 11:13:00 MD Cristy Batista .GLOMERULAR FILTRATION RATE 2020-02-14 11:13:00 MD Husam Gan CALCIUM LEVEL TOTAL 2020-02-14 11:13:00 MD Husam Batista Results CBC 2020-02-14 11:13:00 Hiram Dailey MD And jeff Barfield MANUAL DIFFERENTIAL 2020-02-14 11:13:00 MD Husam Batista POC GLUCOSE SCREEN 2020-02-14 04:28:00 Frannie Emery MD POC GLUCOSE SCREEN 2020-02-14 01:42:00 Frannie Emery MD EEG 2020-02-14 00:02:[address] HEAD WO CONTRAST 2020-02-13 22:02:00 Sindhu Dumas MD Markus son POC GLUCOSE SCREEN 2020-02-13 19:44:00 Frannie Emery MD POC GLUCOSE SCREEN 2020-02-13 15:37:00 Frannie Emery MD BASIC METABOLIC PANEL, 2020-02-13 12:20:00 MD Husam Batista CALCIUM TOTAL Mark Barfield MAGNESIUM LEVEL 2020-02-13 12:20:00 Hiram Dailey MD And jeff Barfield PHOSPHORUS LEVEL 2020-02-13 12:20:00 MD Cristy Batista COMPLETE BLOOD COUNT W/ 2020-02-13 12:20:00 MD Husam Batista DIFFERENTIAL Mark Barfield GLUCOSE LEVEL 2020-02-13 12:20:00 Hiram Dailey MD And jeff Barfield BLOOD UREA NITROGEN 2020-02-13 12:20:00 MD Husam Batista ELECTROLYTE PANEL 2020-02-13 12:20:00 MD Shelby Batista SERUM CREATININE 2020-02-13 12:20:00 MD Cristy Batista .GLOMERULAR FILTRATION RATE 2020-02-13 12:20:00 MD Husam Gan CALCIUM LEVEL TOTAL 2020-02-13 12:20:00 MD Husam Batista Results CBC 2020-02-13 12:20:00 Hiram Dailey MD And jeff Barfield MANUAL DIFFERENTIAL 2020-02-13 12:20:00 MD Husam Batista POC GLUCOSE SCREEN 2020-02-13 06:06:00 Frannie Emery MD POC GLUCOSE SCREEN 2020-02-13 05:03:00 Frannie Emery MD POC GLUCOSE SCREEN 2020-02-13 01:42:00 Frannie Emery MD POC GLUCOSE SCREEN 2020-02-12 20:59:00 Frannie Emery MD POC GLUCOSE SCREEN 2020-02-12 15:39:00 Frannie Emery MD GLUCOSE LEVEL 2020-02-12 14:02:00 Farnnie Emery MD Simbanery mason BLOOD UREA NITROGEN 2020-02-12 14:02:00 Frannie Emery MD ELECTROLYTE PANEL 2020-02-12 14:02:00 Frannie Emery MD SERUM CREATININE 2020-02-12 14:02:00 Frannie Emery MD And erson .GLOMERULAR FILTRATION RATE 2020-02-12 14:02:00 Perry Emery MD CALCIUM LEVEL TOTAL 2020-02-12 14:02:00 Frannie Emery MD MAGNESIUM LEVEL 2020-02-12 14:02:00 Frannie Emery MD Simba rson PHOSPHORUS LEVEL 2020-02-12 14:02:00 Frannie Emery MD And jeff BASIC METABOLIC PANEL, 2020-02-12 11:27:00 MD Husam Batista CALCIUM TOTAL Mark Barfield MAGNESIUM LEVEL 2020-02-12 11:27:00 Hiram Dailey MD And jeff Barfield PHOSPHORUS LEVEL 2020-02-12 11:27:00 MD Cristy Batista COMPLETE BLOOD COUNT W/ 2020-02-12 11:27:00 MD Husam Batista DIFFERENTIAL Mark Barfield BLOOD UREA NITROGEN 2020-02-12 11:27:00 MD Husam Batista ELECTROLYTE PANEL 2020-02-12 11:27:00 MD Shelby Batista SERUM CREATININE 2020-02-12 11:27:00 MD Cristy Batista .GLOMERULAR FILTRATION RATE 2020-02-12 11:27:00 MD Husam Gan CALCIUM LEVEL TOTAL 2020-02-12 11:27:00 MD Husam Batista Results CBC 2020-02-12 11:27:00 Hiram Dailey MD And jeff Barfield MANUAL DIFFERENTIAL 2020-02-12 11:27:00 MD Husam Batista POC GLUCOSE SCREEN 2020-02-12 03:30:00 Frannie Emery MD POC GLUCOSE SCREEN 2020-02-11 22:52:00 Frannie Emery MDon POC GLUCOSE SCREEN 2020-02-11 20:53:00 Frannie Emery MD MRI BRAIN W WO CONTRAST 2020-02-11 19:24:28 MD Husam Batista POC GLUCOSE SCREEN 2020-02-11 17:25:00 Frannie Emery MD BASIC METABOLIC PANEL, 2020-02-11 09:48:00 MD Husam Batista CALCIUM TOTAL Mark Barfield MAGNESIUM LEVEL 2020-02-11 09:48:00 Hiram Dailey MD And jeff Barfield PHOSPHORUS LEVEL 2020-02-11 09:48:00 MD Cristy Batista COMPLETE BLOOD COUNT W/ 2020-02-11 09:48:00 MD Husam Batista DIFFERENTIAL Mark Barfield GLUCOSE LEVEL 2020-02-11 09:48:00 Hiram Dailey MD And jeff Barfield BLOOD UREA NITROGEN 2020-02-11 09:48:00 MD Husam Batista ELECTROLYTE PANEL 2020-02-11 09:48:00 MD Shelby Batista SERUM CREATININE 2020-02-11 09:48:00 MD Cristy Batista .GLOMERULAR FILTRATION RATE 2020-02-11 09:48:00 MD Husam Gan CALCIUM LEVEL TOTAL 2020-02-11 09:48:00 MD Husam Batista Results CBC 2020-02-11 09:48:00 Hiram Dailey MD And jeff Barfield MANUAL DIFFERENTIAL 2020-02-11 09:48:00 MD Husam Batista POC GLUCOSE SCREEN 2020-02-11 03:17:00 Frannie Emery MD POC GLUCOSE SCREEN 2020-02-10 23:33:00 Frannie Emery MD POC GLUCOSE SCREEN 2020-02-10 19:26:00 Frannie Emery MD KS INJECTION AA&/STRD OTHER 2020-02-10 15:00:22 Jethro Lima MD PERIPHERAL NERVE/BRANCH SUPRATENTORIAL BONE FLAP LEFT 2020-02-10 12:37:00 Lucas Emery MD CRANIOTOMY FOR EXCISION OF BRAIN TUMOR POC GLUCOSE SCREEN 2020-02-10 12:18:00 Frannie Emery MD MR BRAIN WITH AND WITHOUT 2020-02-10 03:54:00 Van Russo MD CONTRAST - PRE-OP W NAVIGATION COVID-19 (SARS-COV-2) 2020-02-09 13:59:00 Carmen Morelos MD And jeff PCR-ASYMPTOMATIC MC HEMOGLOBIN A1C 2020-02-06 16:06:00 Van Russo MD BLOOD UREA NITROGEN 2020-02-06 16:06:00 AvVan bernard MD son SERUM CREATININE 2020-02-06 16:06:00 Van Russo MD ELECTROLYTE PANEL 2020-02-06 16:06:00 Van Russo MD MAGNESIUM LEVEL 2020-02-06 16:06:00 AvbovVan helm MD PHOSPHORUS LEVEL 2020-02-06 16:06:00 AvboVan vásquez MD COMPLETE BLOOD COUNT W/ 2020-02-06 16:06:00 Van Russo MD nderson DIFFERENTIAL PARTIAL THROMBOPLASTIN TIME 2020-02-06 16:06:00 AvboVan vásquez MD PROTHROMBIN TIME 2020-02-06 16:06:00 Van Russo MD TYPE AND SCREEN 2020-02-06 16:06:00 Van Russo MD SERUM CREATININE 2020-02-06 16:06:00 Van Russo MD .GLOMERULAR FILTRATION RATE 2020-02-06 16:06:00 Van Russo MD ABORH 2020-02-06 16:06:00 Van Russo MD Results CBC 2020-02-06 16:06:00 Van Russo MD ANTIBODY SCREEN 2020-02-06 16:06:00 Van Russo MD MANUAL DIFFERENTIAL 2020-02-06 16:06:00 AvboVan vásquez MD darrin CLOT EXPIRATION DATE 2020-02-06 16:06:00 Van Russo MD rson TMP INTERPRETATION ANTIBODY 2020-02-06 16:06:00 Van Russo MD SCREEN NEGATIVE TMP INTERPRETATION EXCEPTION 2020-02-06 16:06:00 Van Russo MD PREOP EXPIRATION CONFIRM ABORH TYPE 2020-02-06 16:03:00 Van Russo MD on POC GLUCOSE SCREEN 2020-02-03 19:34:00 MD Jairo And erson Fer POC GLUCOSE SCREEN 2020-02-03 14:40:00 MD Jario And erstobi Fer COMPLETE BLOOD COUNT W/ 2020-02-03 09:19:00 Lise White MD DIFFERENTIAL BASIC METABOLIC PANEL, 2020-02-03 09:19:00 Cornelius Ortez MDson CALCIUM IONIZED MAGNESIUM LEVEL 2020-02-03 09:19:00 Cornelius Ortez MD PHOSPHORUS LEVEL 2020-02-03 09:19:00 Cornelius Ortez MD Results CBC 2020-02-03 09:19:00 Noah Dunlap MD MANUAL DIFFERENTIAL 2020-02-03 09:19:00 Noah Dunlap MD Markus son GLUCOSE LEVEL 2020-02-03 09:19:00 Quinn Taylor MD BLOOD UREA NITROGEN 2020-02-03 09:19:00 Quinn Taylor MD Markus son ELECTROLYTE PANEL 2020-02-03 09:19:00 Quinn Taylor MDo martell SERUM CREATININE 2020-02-03 09:19:00 Quinn Taylor MD .GLOMERULAR FILTRATION RATE 2020-02-03 09:19:00 Quinn Taylor MD CALCIUM IONIZED, VENOUS 2020-02-03 09:19:00 Quinn Taylor MDrson POC GLUCOSE SCREEN 2020-02-03 05:02:00 MD Jairo And erson Fer POC GLUCOSE SCREEN 2020-02-03 01:24:00 MD Jairo And erson Fer POC GLUCOSE SCREEN 2020-02-02 18:22:00 MD Jairo And erson Fer POC GLUCOSE SCREEN 2020-02-02 14:07:00 MD Jairo And erstobi Fer COMPLETE BLOOD COUNT W/ 2020-02-02 08:54:00 Lise White MD DIFFERENTIAL BASIC METABOLIC PANEL, 2020-02-02 08:54:00 Cornelius Ortez MD CALCIUM IONIZED MAGNESIUM LEVEL 2020-02-02 08:54:00 Cornelius Ortez MD PHOSPHORUS LEVEL 2020-02-02 08:54:00 Cornelius Ortez MD Results CBC 2020-02-02 08:54:00 Noah Dunlap MD MANUAL DIFFERENTIAL 2020-02-02 08:54:00 [facility] 2020-02-02 08:54:00 Quinn Taylor MD BLOOD UREA NITROGEN 2020-02-02 08:54:00 Qunin Taylor MD Markus son ELECTROLYTE PANEL 2020-02-02 08:54:00 Quinn Taylor MDo martell SERUM CREATININE 2020-02-02 08:54:00 Quinn Taylor MD .GLOMERULAR FILTRATION RATE 2020-02-02 08:54:00 Quinn Taylor MD CALCIUM IONIZED, VENOUS 2020-02-02 08:54:00 Quinn Taylor MD nderson POC GLUCOSE SCREEN 2020-02-02 03:23:00 MD Jairo And jeff Monroe POC GLUCOSE SCREEN 2020-02-02 01:01:00 Quinn Taylor MD on POC GLUCOSE SCREEN 2020-02-01 18:06:00 Quinn Taylor MD on COMPLETE BLOOD COUNT W/ 2020-02-01 09:12:00 Lise White MDon DIFFERENTIAL BASIC METABOLIC PANEL, 2020-02-01 09:12:00 Cornelius Ortez MD CALCIUM IONIZED MAGNESIUM LEVEL 2020-02-01 09:12:00 Cornelius Ortez MD PHOSPHORUS LEVEL 2020-02-01 09:12:00 Cornelius Ortez MD Results CBC 2020-02-01 09:12:00 Noah Dunlap MD MANUAL DIFFERENTIAL 2020-02-01 09:12:00 [facility] GLUCOSE LEVEL 2020-02-01 09:12:00 Quinn Taylor MD BLOOD UREA NITROGEN 2020-02-01 09:12:00 Quinn Taylor MD Markus [facility] ELECTROLYTE PANEL 2020-02-01 09:12:00 Quinn Taylor MD SERUM CREATININE 2020-02-01 09:12:00 Quinn Taylor MD .GLOMERULAR FILTRATION RATE 2020-02-01 09:12:00 Quinn Taylor MD CALCIUM IONIZED, VENOUS 2020-02-01 09:12:00 Quinn Taylro MD POC GLUCOSE SCREEN 2020-02-01 05:53:00 Quinn Taylor MD on POC GLUCOSE SCREEN 2020-01-31 18:09:00 Quinn Taylor MD on GENERAL LABORATORY ADD ON 2020-01-31 16:08:00 Cornelius Ortez MD TEST COMPLETE BLOOD COUNT W/ 2020-01-31 08:49:00 Lise White MD DIFFERENTIAL BASIC METABOLIC PANEL, 2020-01-31 08:49:00 Lise White MD derson CALCIUM TOTAL Results CBC 2020-01-31 08:49:00 Noah Dunlap MD MANUAL DIFFERENTIAL 2020-01-31 08:49:00 Noah Dunlap MD Markus son GLUCOSE LEVEL 2020-01-31 08:49:00 Noah Dunlap MD BLOOD UREA NITROGEN 2020-01-31 08:49:00 Noah Dunlap MD Markus son ELECTROLYTE PANEL 2020-01-31 08:49:00 [facility] 2020-01-31 08:49:00 Noah Dunlap MD .GLOMERULAR FILTRATION RATE 2020-01-31 08:49:00 Noah Dunlap MD CALCIUM LEVEL TOTAL 2020-01-31 08:49:00 Noah Dunlap MD [facility] son MAGNESIUM LEVEL 2020-01-31 08:49:00 Noah Dunlap MD PHOSPHORUS LEVEL 2020-01-31 08:49:[address] CHEST ABDOMEN PELVIS W WO 2020-01-31 08:16:00 Noah Dunlap MD CONTRAST URINALYSIS WITH MICROSCOPIC 2020-01-31 04:14:00 Lise White MD IF INDICATED URINALYSIS MICROSCOPIC 2020-01-31 04:14:00 Kalpana William MD OSI CT BRAIN 2020-01-31 02:18:36 Lise White MD MRI BRAIN W WO CONTRAST 2020-01-31 01:50:22 Lise White MD HC 2019-NCOV COVID-19 2020-01-30 22:32:00 Kalpana William MD COMPLETE BLOOD COUNT W/ 2020-01-30 21:47:00 Kalpana William MD DIFFERENTIAL COMPREHENSIVE METABOLIC PANEL 2020-01-30 21:47:00 Kalpana William MD MAGNESIUM LEVEL 2020-01-30 21:47:00 Kalpana William MDson PHOSPHORUS LEVEL 2020-01-30 21:47:00 Kalpana William MDrstobi PROTHROMBIN TIME 2020-01-30 21:47:00 Kalpana William MD PARTIAL THROMBOPLASTIN TIME 2020-01-30 21:47:00 Jimbo William MD Results CBC 2020-01-30 21:47:00 Kalpana William MD MANUAL DIFFERENTIAL 2020-01-30 21:47:00 Kalpana William GLUCOSE LEVEL 2020-01-30 21:47:00 Kalpana William MD BLOOD UREA NITROGEN 2020-01-30 21:47:00 Kalpana William ELECTROLYTE PANEL 2020-01-30 21:47:00 Kalpana William MD SERUM CREATININE 2020-01-30 21:47:00 Kalpana William MDrstobi .GLOMERULAR FILTRATION RATE 2020-01-30 21:47:00 Jimbo William MD CALCIUM LEVEL TOTAL 2020-01-30 21:47:00 Kalpana William ALBUMIN LEVEL 2020-01-30 21:47:00 Kalpana William MD ALKALINE PHOSPHATASE 2020-01-30 21:47:00 Kalpana William MD ALANINE AMINOTRANSFERASE 2020-01-30 21:47:00 Ivana William MD ASPARTATE AMINOTRANSFERASE 2020-01-30 21:47:00 Kristin William MD TOTAL PROTEIN 2020-01-30 21:47:00 Kalpana William MD FRACTIONATED BILIRUBIN 2020-01-30 21:47:[address] CHEST W CONTRAST 2020-01-18 13:05:00 Anita Allen MD Markus son POC CREATININE 2020-01-18 12:40:00 Anita Allen MD COMPLETE BLOOD COUNT W/ 2020-01-18 12:18:00 Anita Allen MD DIFFERENTIAL COMPREHENSIVE METABOLIC PANEL 2020-01-18 12:18:00 Anita Allen MD LACTATE DEHYDROGENASE 2020-01-18 12:18:00 Anita Allen MD And erson MAGNESIUM LEVEL 2020-01-18 12:18:00 Anita Allen MD PHOSPHORUS LEVEL 2020-01-18 12:18:00 Anita Allen MD Results CBC 2020-01-18 12:18:00 Anita Allen MD MANUAL DIFFERENTIAL 2020-01-18 12:18:00 Anita Allen MD [facility] GLUCOSE LEVEL 2020-01-18 12:18:00 Anita Allen MD BLOOD UREA NITROGEN 2020-01-18 12:18:00 Anita Allen MD Markus [facility] ELECTROLYTE PANEL 2020-01-18 12:18:00 Anita Allen MD SERUM CREATININE 2020-01-18 12:18:00 Ainta Allen MD .GLOMERULAR FILTRATION RATE 2020-01-18 12:18:00 Anita Allen MD CALCIUM LEVEL TOTAL 2020-01-18 12:18:00 An[facility] ALBUMIN LEVEL 2020-01-18 12:18:00 Anita Allen MD ALKALINE PHOSPHATASE 2020-01-18 12:18:00 Anita Allen MD Simba rson ALANINE AMINOTRANSFERASE 2020-01-18 12:18:00 Anita Allen MD ASPARTATE AMINOTRANSFERASE 2020-01-18 12:18:00 Anita Allen TOTAL PROTEIN 2020-01-18 12:18:00 Anita Allen MD FRACTIONATED BILIRUBIN 2020-01-18 12:18:00 Anita Allen MD derson CT CHEST W CONTRAST 2019-11-02 12:03:00 Dalia Weiner MD And erson POC CREATININE 2019-11-02 11:46:00 Dalia Weiner MD COMPLETE BLOOD COUNT W/ 2019-11-02 11:12:00 Dalia Weiner MD DIFFERENTIAL COMPREHENSIVE METABOLIC PANEL 2019-11-02 11:12:00 Talia Weiner MD Results CBC 2019-11-02 11:12:00 Dalia Weiner MD MANUAL DIFFERENTIAL 2019-11-02 11:12:00 Dalia Weiner MD And erson GLUCOSE LEVEL 2019-11-02 11:12:00 Dalia Weiner MD ELECTROLYTE PANEL 2019-11-02 11:12:00 Dalia [facility]iner [facility] SERUM CREATININE 2019-11-02 11:12:00 Dalia Weiner MD Michael on .GLOMERULAR FILTRATION RATE 2019-11-02 11:12:00 Dalia Weiner MD CALCIUM LEVEL TOTAL 2019-11-02 11:12:00 Dalia Weiner MD And erson ALBUMIN LEVEL 2019-11-02 11:12:00 Dalia Weiner MD Andana moura ALKALINE PHOSPHATASE 2019-11-02 11:12:00 Dalia Weiner MD derson ALANINE AMINOTRANSFERASE 2019-11-02 11:12:00 Dalia Weiner ASPARTATE AMINOTRANSFERASE 2019-11-02 11:12:00 Dalia Weiner MD TOTAL PROTEIN 2019-11-02 11:12:00 Dalia Weiner MD FRACTIONATED BILIRUBIN 2019-11-02 11:12:00 Dalia Weiner MD BLOOD UREA NITROGEN 2019-11-02 11:12:00 Dalia Weiner MD And erson COMPLETE BLOOD COUNT W/ 2019-09-07 14:59:00 Dalia Weiner MD DIFFERENTIAL COMPREHENSIVE METABOLIC PANEL 2019-09-07 14:59:00 Talia Weiner MD Results CBC 2019-09-07 14:59:00 Dalia Weiner MDo martell MANUAL DIFFERENTIAL 2019-09-07 14:59:00 Dalia Weiner MD And erson GLUCOSE LEVEL 2019-09-07 14:59:00 Dalia Weiner MD Andsylviao martell ELECTROLYTE PANEL 2019-09-07 14:59:00 Dalia [facility]iner MD [facility] SERUM CREATININE 2019-09-07 14:59:00 Dalia Weiner MD Michael on .GLOMERULAR FILTRATION RATE 2019-09-07 14:59:00 Dalia Weiner MD CALCIUM LEVEL TOTAL 2019-09-07 14:59:00 Dalia Weiner MD And erson ALBUMIN LEVEL 2019-09-07 14:59:00 Dalia Weiner MD Andsylviao martell ALKALINE PHOSPHATASE 2019-09-07 14:59:00 Dalia Weiner MDson ALANINE AMINOTRANSFERASE 2019-09-07 14:59:00 Dalia Weiner ASPARTATE AMINOTRANSFERASE 2019-09-07 14:59:00 Dalia Weiner MD TOTAL PROTEIN 2019-09-07 14:59:00 Dalia Weiner MD FRACTIONATED BILIRUBIN 2019-09-07 14:59:00 Dalia Weiner MD BLOOD UREA NITROGEN 2019-09-07 14:59:00 Dalia Weiner MD And erson CT CHEST W CONTRAST 2019-07-27 12:12:00 Dalia Weiner MD And erson POC CREATININE 2019-07-27 11:53:00 Dalia Weiner MD Andsylviao martell COMPLETE BLOOD COUNT W/ 2019-07-27 11:27:00 Dalia Weiner MD DIFFERENTIAL COMPREHENSIVE METABOLIC PANEL 2019-07-27 11:27:00 Talia Weiner MD Results CBC 2019-07-27 11:27:00 Dalia Weiner MD MANUAL DIFFERENTIAL 2019-07-27 11:27:00 Dalia Weiner MD And erson GLUCOSE LEVEL 2019-07-27 11:27:00 Dalia Weiner MD BLOOD UREA NITROGEN 2019-07-27 11:27:00 Dalia Weiner MD And erson ELECTROLYTE PANEL 2019-07-27 11:27:00 Dalia Weiner MD Markus darrin SERUM CREATININE 2019-07-27 11:27:00 Dalia Weiner MD Michael on .GLOMERULAR FILTRATION RATE 2019-07-27 11:27:00 Dalia Weiner MD CALCIUM LEVEL TOTAL 2019-07-27 11:27:00 Dalia Weiner MD And erson ALBUMIN LEVEL 2019-07-27 11:27:00 Dalia Weiner MD ALKALINE PHOSPHATASE 2019-07-27 11:27:00 Dalia Weiner MD ALANINE AMINOTRANSFERASE 2019-07-27 11:27:00 Dalia Weiner ASPARTATE AMINOTRANSFERASE 2019-07-27 11:27:00 Dalia Weiner MD TOTAL PROTEIN 2019-07-27 11:27:00 Dalia Weiner MD FRACTIONATED BILIRUBIN 2019-07-27 11:27:00 Dalia Weiner MD Encounters Start End Encounter Admission Attending Care Care Encounter Source Date/Time Date/Time Type Type Clinicians Facility Department ID 2019-10-01 2019-10-01 Outpatient FERNANDA CASIANO MDA MDA [id number] 00:00:00 00:00:00 CAROLYN moura 2019-09-07 2019-09-07 Outpatient [facility]ER[facility]DA [facility] [id number] 09:53:02 23:59:00 DALIA moura Results Test Description Test Time Test Comments Results Result Comments Source NGS Blood Control 2020-06-11 16:26:53 Test Item Value Reference Range Interpretation Comme nts Molecular Diagnostics (Received) (test code = 8400) Yes MD WeinerCT Chest Abdomen Pelvis with [id number] 16:18:14 1. Stable pulmonary metastases. 2. Stable right supraclavicular, mediastinal and right hilar adenopathy. Interface, Radiology Results In - 06/09/2020 11:20 AM CDTFULL RESULT:Examination: CT CHEST ABDOMEN PELVIS W CONTRAST, 06/09/2020 9:59 AMClinical History: Malignant neoplasm of unspecified part of unspecified bronchus or lungIndication: restaging for metastatic NSCLC on TKI therapyComparison: 04/04/2020, 01/31/2020Technique: CT of the chest, abdomen, and pelvis was performed with intravenous contrast.Findings: Normal central airways.Multiple small pulmonary nodular densities, largest in the rightlower lobe measuring 7 mm (image 76) are stable from the prior study and reduced in size from original study of 08/02/2016.Partially calcified right supraclavicular and high right paratracheal 11-12 mm lymph nodes are stable. Stable 13-14 mm right axillary and other subcentimeter mediastinal nodes.Normal cardiac size; no effusions. Gastric banding device in situ. Normal adrenals, liver, spleen, pancreas. Cholecystectomy.No upper abdominal, retroperitoneal or pelvic adenopathy.No obstructive colonic lesion.Focus of T12 sclerosis is again present, less prominent than original study of 08/02/2016 - thiswas nonavid at PET/CT of 08/02/2016.IMPRESSION:1. Stable pulmonary metastases.2. Stable right supraclavicular, mediastinal and right hilar adenopathy.MD WeinerCreatine [id number] 14:05:51 Test Item Value Reference Range Interpretation Comments CK (test code = 5206) 196 U/L 26-192 H Lab Interpretation (test code = Abnormal 37253-5) MD WeinerFractionated [id number] 13:54:35 Test Item Value Reference Range Interpretation Comments Bili Total (test 0.4 mg/dL See_Comment Indocyanine Green (ICG) code = 5096) may cause false ly elevated biliru bin results. Total and direct bilirubin must not be measured from s amples containing indo cyanine green. False el evation of total bilirubin can be seen in patient s with IgG concentrations above 28 g/L. [Automate d message] The system [employer] generated this result transmitted ref erence range: <=1.2. T he reference range was not used to interpr et this result as normal/abnormal . Bili Direct (test <0.2 See_Comment Indocyanin e Green (ICG) code = 5094) may cause false ly elevated biliru bin results. Total and direct bilirubin must not be measured from s amples containing indo cyanine green. [Automat ed message] The sy stem which generated this result transmitted ref erence range: <=0.3 mg /dL. The reference range was not used to interpr et this result as normal/abnormal . Bili Indirect (test See Note 0-0.9 Unable t o calculate code = 5095) Indirect Biliru bin result due to some par ameters are outside rep ortable range MD WeinerTotal [id number] 13:54:34 Test Item Value Reference Range Interpretation Comments Total Protein (test code = 7649) 7.1 g/dL 6.4-8.3 MD WeinerCalcium [id number] 13:54:33 Test Item Value Reference Range Interpretation Comments Calcium Lvl (test code = 5258) 9.2 mg/dL 8.4-10.2 MD [id number] 13:54:32 Test Item Value Reference Range Interpretation Comments ALT (test code = 14 U/L See_Comment [Automated message] The 4705) system which ge nerated this result transmit mirella reference range : <=33. The reference range was not used to interpr et this result as chayo l/abnormal. MD [id number] 13:54:31 Test Item Value Reference Range Interpretation Comments BUN (test code = 5055) 9 mg/dL 6-23 MD WeinerGlucose [id number] 13:54:29 Test Item Value Reference Range Interpretation Comments Glucose Level (test 85 mg/dL 70-99 Effectiv e 10/13/15, the code = 5699) glucose referen ce intervals have been updated based o n [place] [employer] yael delines (Standards of M edical Care in Diabete s 2016. Diabetes Care 2 016; 39: S13-S22).Fastin g blood glucose:Normal: 70 99 mg/dLImpaire d fasting glucose (increa sed risk for diabetes or pre-diabetes): 100 125 mg/dLDiabet es mellitus: >/=1 26 mg/dL Random blood glucose:Normal: 70 199 mg/dLNote: Random glucose >100 mg /dL is associated with increased risk for diabetes MD WeinerGlomerular Filtration [id number] 13:54:28 Test Item Value Reference Range Interpretation Comments eGFR-AA (test code 94 See_Comment Normal eG FR: >= 60 = 8062) mL/min/1.73 m2N ote: The eGFR is calculated u sing the CKD-EPI equatio n. The eGFR declines with a ge. eGFR <60 mL/min/1.73 m2 is considered as "decreased". This equation should only be used for patients 18 and older. According to e [employer] on's Kidney Disease Outcome Quality Initiative (KDO QI) classification and 2012 Kidney Disease Improving Global Outcomes (KDIGO) Clinical Practi ce Guideline, the stage of CK D should be categorized bas ed on estimated GFR. Stage Description GFR mL/min/1.73 m21 Normal or high GFR >=902 Mildly decrease d GFR 60-893a M ildly to moderately decr eased GFR 45-593b Moderat krystin to severely decrea sed GFR 30-444 Severely decreased GFR 15-295 Kid red failure <15 [Automa mirella message] The system [employer] generated this result tra nsmitted reference range : >=60 mL/min/1.73 sq. m. The reference range was not used to interpret is result as normal/abnormal . eGFR-YARELIS (test code 81 See_Comment Normal e GFR: >= 60 = 8063) mL/min/1.73 m2N ote: The eGFR is calculated u sing the CKD-EPI equatio n. The eGFR declines with a ge. eGFR <60 mL/min/1.73 m2 is considered as "decreased". This equation should only be used for patients 18 and older. According to e National [employer] on's Kidney Disease Outcome Quality Initiative (KDO QI) classification and 2012 Kidney Disease Improving Global Outcomes (KDIGO) Clinical Practi ce Guideline, the stage of CK D should be categorized bas ed on estimated GFR. Stage Description GFR mL/min/1.73 m21 Normal or high GFR >=902 Mildly decrease d GFR 60-893a M ildly to moderately decr eased GFR 45-593b Moderat krystin to severely decrea sed GFR 30-444 Severely decreased GFR 15-295 Kid red failure <15 [Automa mirella message] The system [employer] generated this result tra nsmitted reference range : >=60 mL/min/1.73 sq. m. The reference range was not used to interpret th is result as normal/abnormal . MD WeinerAlkaline [id number] 13:54:27 Test Item Value Reference Range Interpretation Comments Alk Phos (test code = 4768) 106 U/L 35-104 H Lab Interpretation (test code = Abnormal 71270-3) MD WeinerAlbumin [id number] 13:54:25 Test Item Value Reference Range Interpretation Comments Albumin Lvl (test code 3.9 See_Comment [Aut omated message] The = 2893) system which [employer] nerated this result tra nsmitted reference range : 3.5 - 5.2 gm/dL. The refe rence range was not used to interpret this result as normal/abnormal . MD WeinerAspartate [id number] 13:54:24 Test Item Value Reference Range Interpretation Comments AST (test code = 28 U/L See_Comment [Automated message] The 0710) system which [employer] nerated this result transmit mirella reference range : <=32. The reference range was not used to interpr et this result as chayo l/abnormal. MD WeinerElectrolyte [id number] 13:54:23 Test Item Value Reference Range Interpretation Comments Sodium Lvl (test code = 142 See_Comment [Au tomated message] 4779) The system [employer] generated this result transmitted ref erence range: 136 - 14 5 mEq/L. The refe rence range was not u sed to interpret this result as normal/abnor mal. Potassium Lvl (test code 3.0 See_Comment L [A utomated message] = 6687) The system [employer] generated this result transmitted ref erence range: 3.5 - 5. 1 mEq/L. The refe rence range was not u sed to interpret this result as normal/abnor mal. Chloride (test code = 104 See_Comment [Auto mated message] 9760) The system [employer] generated this result transmitted ref erence range: 98 - 107 mEq/L. The refe rence range was not u sed to interpret this result as normal/abnor mal. CO2 (test code = 5227) 31 See_Comment H [Aut omated message] The system [employer] generated this result transmitted ref erence range: 22 - 29 mEq/L. The reference r sangeeta was not used to interpret this result as normal/abnor mal. Anion Gap (test code = 7 See_Comment [Aut omated message] 9701) The system [employer] generated this result transmitted ref erence range: 4 - 14 m Eq/L. The reference r sangeeta was not used to interpret this result as normal/abnor mal. Lab Interpretation (test Abnormal code = 25065-6) MD Weiner.Serum [id number] 13:54:22 Test Item Value Reference Range Interpretation Comments Creatinine (test code = 5399) 0.85 mg/dL 0.51-0.95 MD [id number] 13:20:09 Test Item Value Reference Range Interpretation Comments Neutrophil % (test code = 52.9 % 42-66 6491) Lymphocyte % (test code = 30.5 % 24-44 6194) Monocyte % (test code = 8.2 % 2-7 H 6422) Eosinophil % (test code = 6.5 % 1-4 H 5520) Basophil % (test code = 0.8 % 0-1 5068) IGRE % (test code = 5958) 1.1 % 0-0.4 H IG RE % count includes Metamyelocytes, Myelocytes, and Promyelocytes. Neutrophil Abs (test code 1.94 K/uL 1.7-7.3 = 6492) Lymphocyte Abs (test code 1.12 K/uL 1-4.8 = 6195) Monocyte Abs (test code = 0.30 K/uL 0.08-0.7 6423) Eosinophil Abs (test code 0.24 K/uL 0.04-0.4 = 5521) Basophil Abs (test code = 0.03 K/uL 0-0.1 5069) IG Abs (test code = 5954) 0.04 K/uL 0-0.04 Lab Interpretation (test Abnormal code = 70021-8) MD Weiner.[id number] 13:20:05 Test Item Value Reference Range Interpretation Comments WBC (test code = 8034) 3.7 K/uL 4-11 L RBC (test code = 6932) 3.78 See_Comment L [Aut omated message] The system [employer] generated this result transmitted ref erence range: 4.00 - 5 .50 M/uL. The refer ence range was not u sed to interpret this result as normal/abnor mal. Hgb (test code = 5898) 10.6 See_Comment L [Aut omated message] The system [employer] generated this result transmitted ref erence range: 12.0 - 1 6.0 gm/dL. The refe rence range was not u sed to interpret this result as normal/abnor mal. Hct (test code = 5860) 33.5 % 37-47 L MCV (test code = 6222) 89 fL 82-98 MCH (test code = 6220) 28.0 pg 27-31 MCHC (test code = 6221) 31.6 See_Comment [Au tomated message] The system [employer] generated this result transmitted ref erence range: 31.0 - 3 6.0 gm/dL. The refe rence range was not u sed to interpret this result as normal/abnor mal. RDW-SD (test code = 45.4 fL 35.1-46.3 6972) RDW-CV (test code = 14.2 % 12-15.5 6971) Platelet count (test 257 K/uL 140-440 code = 6832) MPV (test code = 6282) 10.7 fL 4-10.4 H INRBC (test code = 0.0 % See_Comment The INRBC (instrument 5974) NRBC) value ref lects the enumeration of nucleated red b lood cells contained in a 200uL sampleof whole blood analyzed by the instrument. Thi s value maydiffer from the NRBC value repo rted in a manual differential,wh ich is based on a 100 cell differential. [Automated mess age] The system whic h generated this result transmitted ref erence range: <=0.0. T he reference range was not used to int erpret this result as normal/abnormal . Lab Interpretation Abnormal (test code = 17625-1) [facility] Brain with and without [id number] 21:40:45 1. Numerous intracranial lesions have increased in size or new compared to baseline and prior studies. 2. Resolving postsurgical changes in the left temporal lobe. Interface, Radiology Results In - 04/06/2020 3:42 PM CSTFULL RESULT:Examination: MRI BRAIN W WO CONTRAST on 04/06/2020 2:43 PMClinical History: Secondary malignant neoplasm of brain. 49-year-old patient with history of lung cancer and thyroid cancer status post craniotomy 02/10/2020 for resection of left temporal metastasis. Medical history significant for whole brain radiation therapy in 2017.Indication: Not for stroke, trauma, headache, sinusitis, or syncope, Cancer response assessment (post-operative). Comparison: 02/11/2020, 01/30/2020 and 08/01/2016Technique: Multiplanar MR imaging of the brain was obtained before and after contrast administration.Findings: There are numerous enhancing intracranial lesions identified withassociated edema. Following are new or progressive since 02/11/2020 study:1. Right cerebellum (series 9 image 52). This lesion was present on the 08/01/2016 study has increased in size since baseline imaging and is compared to 02/11/2020.2. Enhancing lesion in the region of the right lateral recess of the fourth ventricle measures 7.8 mm (series 9 image 71). This lesion was not present on the 08/01/2016 study and has minimally increased in size compared to 02/11/2020.3. Left lateral cerebellar lesion measuring 6 mm (series 9 image 84), new since 08/01/2016 stable since 02/11/2020.4. Left inferior medial temporal bilobed lesion measuring 26 x 20 mm (series 9 image 84). This lesion was present on the 08/01/2016 study and has significantly increase in size since 02/11/2020 study.5. Small 4 mm enhancing lesion right posterior temporal lobe (series 9 image 14), new since 08/01/2016 and minimal increase insize compared to 02/11/2020.6. Small lesion measuring 4 mm near the right anterior commissure adjacent to the anterior third ventricle slightly increased in size compared to 02/11/2020 study and new since 08/01/2016.7. Right insular lesion measuring 23 x 16 mm (series 9 image 137), present on the study increasing in size since baseline and 02/11/2020.8. Right periatrial lesion measuring 16 mm (series 9 image 45), new since 08/01/2016 stable to minimally decrease in size compared to 02/11/2020.9. Right anterior frontal lesion measuring 8.4 mm (series 9 image 54), new since 08/01/2016 end relatively stable since 02/11/2020. Exam. Right anterior medial frontal lobe lesion measuring 15 mm (series9 image 55), increase in size since baseline minimally increased in size since 02/11/2020.10. Medial left parietal lesion measuring 18 mm (series 9 image 75), new since 08/01/2016 and slightly larger compared to 02/11/2020.11. Medial left frontal lesion measuring 9 mm (series 9 image 187), new since 08/01/2016 and stable since 02/11/2020.12. Right anterior frontal convexity lesion measuring 7.8 mm (series 9 image 180), new since 08/02/2016 and stable since 02/11/2020.Left temporal parietal craniotomy changes are seen. There has been interval decrease in size of the extra-axial fluid collection, decrease in surrounding edema and resolution of the midline shift. The resection cavity is seen with marginal enhancement, slightly more prominent compared to prior study, likely postoperative.The ventricles are proportional to the sulcal pattern.IMPRESSION:1. Numerous intracranial lesions have increased in size or new compared to baseline and prior studies.2. Resolving postsurgical changes in the left temporal lobe.MD WeinerCOVID-19 (SARS-CoV-2) PCR-Asymptomatic 2020-04-05 00:45:20 Test Item Value Reference Range Interpretation Comments COVID19 (SARS Not Detected Not Detected This test is a CoV-2) Result qualitative (test code = reverse-transcr iptase 20222-7) polymerase ghazal n reaction (RT-PC R) developed for t he Jeromy MARINA 680 0 system and inte nded for the detecti on of SARS CoV-2 RNA in human nasophary ngeal specimens from patients who me et COVID-19 clinic al and/or epidemiological criteria. This assay has been approv ed by the FDA for use only under Emergency Use Authorization ( EUA) in laboratories that have been CLIA-certified to perform moderate-comple xity and high-comple xity tests. The performance characteristics of this assay were verified by the Microbiology Laboratory at [facility], CLIA Accreditation # : [id number] and CAP Accreditation # : [id number]. Result s must be interpreted within the context of all relevant clinic al and laboratory find ings and should not form the sole basis for a diagnosis or treatment decis ion. "Presumptive Positive" resul ts are due to partial amplification o f SARS-CoV-2 targ ets and indicates l ow amounts of viru s present in the specimen at or near the limit of detection. Regardless, individuals wit h "Presumptive Positive" resul ts should be manag ed per institutional guidelines as individuals pos itive for SARS-CoV-2 virus, including use o f appropriate inf ection control protoco ls. Internal contro ls are included to ass ess for possible amplification inhibitors. If inhibition is detected, testi ng is repeated and if inhibition is confirmed the specimen is res ulted as "Invalid". W hen an "Invalid" resul t occur, it is recommended to wait 3 days before submitting a ne w specimen for te sting if clinically indicated. COVID19 SARS BUSINESS CENTER MANAGER Swab Source (test code = 80235) COVID19 SARS Pre-Out of OR Indication (test Procedure code = 75705) MD WeinerCT Chest with [id number] 17:20:34 Stable supraclavicular and right paratracheal adenopathy.Stable small bilateral pulmonary nodules.In terface, Radiology Results In - 04/04/2020 11:22 AM CSTFULL RESULT:Examination: CT CHEST W CONTRAST,04/04/2020 7:41 AMClinical History: Malignant neoplasm of unspecified part of unspecified bronchus orlungIndication: Lung cancer care (staging, restaging, surveillance, etc.), Restaging - Treatment completion, restaging for metastatic NSCLC on TKI therapyComparison: 2019Technique: CT of the chest was performed with intravenous contrast.Findings: There are numerous small bilateral pulmonary nodules without significant change in size. The largest nodule is in the right lower lobe on image 94 measuring 0.9 cm. Right supraclavicular lymph node on image 18 measures 1.2 cm, previously 1.2 cm. There are lymph nodes in the mediastinum measuring up to 1.2 cm in short axis, stable in size. Right hilar node on image 59 measures 0.8 cm. No evidence of pleural effusion.The adrenal glands are within normal limits. No focal lesions in the spleen or liver suspicious for metastases. Postoperative changes of cholecystectomy. Postoperative changes of gastric band placement are again noted.There is a sclerotic lesion at T12 stable at least since 01/12/2018.IMPRESSION:Stable supraclavicular and right paratracheal adenopathy.Stable small bilateral pulmonary nodules. [facility] Creatinine 2020-04-04 13:16:39 Test Item Value Reference Range Interpretation Comments POC Crea (test 0.6 mg/dL 0.6-1.3 Medications, especially code = 20586-5) hydroxyurea or supplements, such as ascorba te, can interfere with test results causing a false ly and significantlyhi gher result than expected. If a problem is suspected wi th a patient's result, a sampl e should be sent to the lab oratory for confirmatory te sting. Method description: Th e i-STAT is an analyzer used f or in vitro quantification of various analytes in who le blood. The device uses a s yarelis disposable cart ridge which contains microf abricated sensors, a shaquille bration solution, fluid ics system, and a waste sudhakar mber. Each test cartridge contains chemically sens itive biosensors on a silicon chip that are config ured to perform specifi c tests. The microfabricated sensors measure analyte concentration by an electroch emical assay. POC eGFR-AA 125 See_Comment Normal eGFR >= 60 mL/min/1.73 (test code = m2 The eGFR is calculated 92299-7) using the CKD-E PI equation. The eGFR declin es with age. eGFR <60 mL/min /1.73 m2 is considered as " decreased" This equation s hould only be used for patien ts 18 and older. Accordin g to the National Kidney Foundation's Kidney Disease Outcome Quality Initiat lyndsay (KDOQI) classification and 2012 Kidney Disease Improving Global Outcomes (KDIGO) Clinical Practi ce Guideline, the stage of CK D should be categorized bas ed on estimated GFR. Stage Description GFR mL/min/1.73 m21 Kidney agatha ge with normal or high GFR >=902 Kidney damage with mil d decrease in GFR 60-893a Mild to moderate decrea se in GFR 45-593b Moderat e to severe decrease in GFR 30-444 Severe decrease in GFR 15-295 Kidney f ailure <15 (or dialysis) [Automated message] The sy stem which generated this result transmitted ref erence range: >=60 mL/min/1.7 3 m2. The reference range was not used to interpret th is result as normal/abnormal . POC eGFR-YARELIS 108 See_Comment Normal eGFR >= 60 mL/min/1.73 (test code = m2 The eGFR is calculated 96286-2) using the CKD-E PI equation. The eGFR declin es with age. eGFR <60 mL/min /1.73 m2 is considered as " decreased" This equation s hould only be used for patien ts 18 and older. Accordin g to the National Kidney Foundation's Kidney Disease Outcome Quality Initiat lyndsay (KDOQI) classification and 2012 Kidney Disease Improving Global Outcomes (KDIGO) Clinical Practi ce Guideline, the stage of CK D should be categorized bas ed on estimated GFR. Stage Description GFR mL/min/1.73 m21 Kidney agatha ge with normal or high GFR >=902 Kidney damage with mil d decrease in GFR 60-893a Mild to moderate decrea se in GFR 45-593b Moderat e to severe decrease in GFR 30-444 Severe decrease in GFR 15-295 Kidney f ailure <15 (or dialysis) [Automated message] The sy stem which generated this result transmitted ref erence range: >=60 mL/min/1.7 3 m2. The reference range was not used to interpret th is result as normal/abnormal . POC Clean Dev Yes (test code = 6672) MD Roe CERVICAL THORACIC LUMBAR SPINE WO [id number] 17:10:37 Examination terminated prematurely due to patient discomfort. Contrast was not administered. Mild multilevel degenerative changes of the spine most prominent in the cervical region. No evidence of significant spinal canal stenosis. No evidence of a suspicious marrow replacing lesion. No evidence of fr acture.Interface, Radiology Results In - 02/25/2020 11:12 AM CSTFULL RESULT:Examination: MRI CERVICAL THORACIC LUMBAR SPINE WO CONTRAST on 02/24/2020 8:10 PMClinical History: Malignant neoplasm of unspecified part of unspecified bronchus or lungIndication: Assess for metastatic diseaseComparison: CT chest, abdomen and pelvis January 31, 2020.Technique: MRI of the Cervical Spine without contrast.MRI of the Thoracic Spine without contrast.MRI of the Lumbar Spine without contrast. Study terminated prematurely due to patient discomfort. No contrast was administered.FINDINGS:CERVICAL SPINE:There is straightening of normal lumbar lordosis with lumbar spinal alignment otherwise within normal limits.Thereare multilevel degenerative changes of the cervical spine seen as loss of disc space height, marginal osteophyte formation and discogenic endplate changes.The vertebral body marrow signal is otherwise within normal limits and without evidence of a fracture or a marrow replacing lesion.The visualized brain is normal.The cervical cord is within normal limits in signal and caliber.SIGNIFICANT FINDINGS BY LEVEL:C4-5: There is a disc osteophyte complex. There is mild spinal canal stenosis. There is no significant right neuroforaminal stenosis. There is no significant left neuroforaminal stenosis. C5-6: There is a disc osteophyte complex with superimposed central disc protrusion. There is mild spinal canal stenosis. There is no significant right neuroforaminal stenosis. There is mild left neuroforaminal stenosis. The paravertebral soft tissues are unremarkable.THORACIC SPINE:Thoracic spine alignment is within normal limits. The intervertebral disc spaces are preserved.The vertebral body marrow signalis within normal limits and without evidence of a fracture or a marrow replacing lesion.The vertebral body heights are maintained.The thoracic cord is within normal limits in caliber and signal.There is no significant neural foraminal or spinal canal stenosis.The paravertebral soft tissues are unremarkable.LUMBAR SPINE:Lumbar spine alignment is within normal limits. The intervertebral disc spaces arepreserved.The vertebral body marrow signal is within normal limits and without evidence of a fracture or a marrow replacing lesion.The conus terminates at approximately the L1-2 disc level. The conus and cauda equina nerve roots are unremarkable.There is no significant neural foraminal or spinal canalstenosis. The paravertebral soft tissues are unremarkable.IMPRESSION:Examination terminated prematurely due to patient discomfort. Contrast was not administered.Mild multilevel degenerative changes of the spine most prominent in the cervical region. No evidence of significant spinal canal stenosis.No evidence of a suspicious marrow replacing lesion. No evidence of fracture.MD WeinerPhosphorus [id number] 12:41:40 Test Item Value Reference Range Interpretation Comments Phosphorus (test code = 6817) 2.7 mg/dL 2.5-4.5 MD WeinerMagnesium [id number] 12:41:36 Test Item Value Reference Range Interpretation Comments Magnesium (test code = 6359) 2.2 mg/dL 1.6-2.6 MD WeinerPOC Glucose [id number] 05:10:38 Test Item Value Reference Range Interpretation Comments POC Glucose (test 164 mg/dL 70-99 H RN Notifie dCapillary code = 05371-9) blood sample s, e.g. obtained by fingerstick, ma y have inaccurate resu lts in patients with d ecreased peripheral bloo d flow. Method descript ion: All results are jenniffer sured using Electroch emistry test methodolog y. The glucose in the sample mixes with the reagents on the test str ip. The reaction produc es an electric curren t. The amount of curre nt produced is proportional to the glucose concent ration in the blood. PO Sample Type (test Capillary code = 9554) Lab Interpretation Abnormal (test code = 68018-6) MD [id number] 05:25:43Trey Cedeño MD 02/13/2020 11:29 PMEEG REPORT. IMPRESSION: Expected left temporal and central region dysfunction with no epileptiform discharges are seen. Findings; PDR - Left less well regulated 5-6 Hz, right 7-9 hz showing V& R. Anterior activity - . Background is continuous, without sleep. Persistent polymorphic delta seen over left temporal and central regions with no epileptiform discharges. S:oriented with aphasia ReferentialMD AndersonCT Head without [id number] 23:37:421. Evolving postsurgical changes in the left temporal and parietal regions with stable vasogenic edema surrounding the resection cavity and stable to minimally more prominent nhmg-kt-tbbpd midline shift of 4 mm.2. No acute hemorrhage or hydrocephalus or CT evidence for large territorial stroke. 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 Also history of thyroid cancer in 2017.INDICATION: Focal neurologic deficitTECHNIQUE: CT scan of the brain was performed without intravenous contrast as per departmental protocol. FINDINGS: There are left sided craniotomy changes with underlying extra-axial collection with fluid and air that remains stable from the MRI dated 02/11/2020. There is low-density fluid in the resection cavity with stable surrounding vasogenic edema in theleft temporal and parietal lobes when comparing to the FLAIR images from the comparison MRI. There is stable to minimally increased mass effect resulting in 4 mm renr-wv-ugkld midline shift. There is no hydrocephalus. Additional known intracranial mass lesions are better visualized on the recent MRI, and there is no new associated mass effect or acute intracranial hemorrhage.The paranasal sinuses andmastoid air cells are clear.IMPRESSION:1. Evolving postsurgical changes in the left temporal and par ietal regions with stable vasogenic edema surrounding the resection cavity and stable to minimally more prominent iocu-zr-gkbga midline shift of 4 mm.2. No acute hemorrhage or hydrocephalus or CT evidence for large territorial stroke.I personally reviewed these image(s) along with the resident's/fellow's interpretations, certify that if a procedure was performed I was physically present, and agree with the final report.MD Weiner2. Peripheral block 2020-02-10 15:00:scott Lima MD 02/10/2020 9:03 AM2. Peripheral blockScalpStart time: 02/10/2020 8:00 AMPatient location during procedure: ORStaffingAnesthesiologist: NANCY Ajerformed: OR anesthesiologist Preanesthetic ChecklistCompleted: patient identified, site marked, surgical consent, pre-op evaluation, timeout performed, IV checked, risks and benefits discussed and monitors and equipment checkedPeripheral BlockPatient position: supinePrep: alcohol/chlorhexidine gluconate swab 2%Patient monitoring: heart rate, cafeteria monitor, continuous pulse ox and [id number] type: scalpLaterality: bilateralInjection technique: single-shotNeedleNeedle gauge: 25 GNeedle length: 2 inNeedle localization:anatomical landmarksTest dose: negativeAttempts: 1Sterile dressing applied: NoMedications AdministeredRopivacaine with EPINEPHrine Block (Anes OSM) - Scalp Block Mixture, 20 mL (Mixture components: ropivacaine PF 5 mg/mL (0.5%) Soln, 30 mL; EPINEPHrine 1 mg/mL (1:1,000) Soln, .15 mL) AssessmentInjection assessment: negative aspiration for hemeHeart rate change: noEvents: no acute complicationsAdditional NotesBilateral greater and lesser occipital, auriculotemporal, zygomatic-temporal and supraorbital branch nerves blocked.MD [facility]TH[facility] Brain with and without Contrast - PRE-OP w [id number] 04:11:28Preoperative assessment of brain metastases including a 4.2 cm left temporal lobe mass.Interface, Radiology Results In - 02/09/2020 10:13 PM CSTFULL RESULT:Examination: MRI BRAIN WITH AND WITHOUT CONTRAST - PRE-OP W NAVIGATION on 02/09/2020 9:54 PMClinical History: Lesion of brainIndication: Preoperative assessmentComparison: 01/30/20.Technique: MRI brain without and with IV contrast was performed. Medications sequences were obtained for preoperative planning.Findings: A left temporal lobe mass measures 3.5 x 4.2 x 3.2 cm. There is vasogenic edema within the left temporal lobe with effacement of the left lateral ventricle and mild uncal herniation. There is rightward midline shift measuring up to 5 mm. Multiple other enhancing lesions are identified throughout the brain parenchyma in keeping withknown metastases. These lesions have been annotated on series 15, images 60, 73, 75, 97, 105, 110, 121, 127, 128, 136, 156, 166, 170. Indeterminate lesions have been circled.There is no definite leptomeningeal enhancement. The major vascular flow voids are preserved. There is no acute territorial infarction or new hemorrhage.IMPRESSION:Preoperative assessment of brain metastases including a 4.2 cm left temporal lobe mass.MD Gregory Interpretation Exception PreOp [id number] 12:28:44 Test Item Value Reference Interpretation Comments Range TMP Exception Patient's pre-op Type ____ (test code = [place] no 7543) evidence of RBC KI MBERLY alloantibody(ies). Ceasar COOL tated by: CLINICAL INFORMATION KAYLENE Booth PROVIDED BY THE Stanley COOL ed ANESTHESIOLOGISTS AND Date/T israel: 02.07.2020 PATIENT WOULD ALLOW 6:28 AM TECHNOLOGY APPLICATIONS TEACHER FOR THIS SAMPLE TO BE Transc ribed USED UP TO 30 DAYS FOR Date/ Time: 02.07.2020 TYPE AND SCREEN FOR 6:28 AM SURGERY ONLY. CSTElectronica lly Signed By: HEIDY COOL, on 01.18 6:28 AM C MD Gregory Interpretation Antibody Screen [id number] 22:17:12 Test Item Value Reference Range Interpretation Comments TMP Auto Neg At the present ABSC Interp time, patient (test code = plasma shows no ____DARWIN 7535) evidence of RBC Stanley COOL ed by: alloantibodies. DARWIN MENJIVAR IN,Dictated Date/Time: 01.18 16:17 PM TECHNOLOGY APPLICATIONS TEACHER Transcribed Marty e/Time: 02.06.2020 16:1 7 PM CSTElectronical ly Signed By: DARWIN ASCENCIO, on 02.06.2020 16:1 7 PM MD WeinerConfirm [id number] 19:42:29 Test Item Value Reference Range Interpretation Comments ABORh Confirm. (test code = 882-1) A POS MD WeinerAntibody [id number] 19:41:52 Test Item Value Reference Range Interpretation Comments ABSC. (test code = 890-4) Negative ABSC MD [id number] 19:41:51 Test Item Value Reference Range Interpretation Comments ABORh. (test code = 882-1) A POS MD WeinerClot Expiration [id number] 19:41:50 Test Item Value Reference Range Interpretation Comments T & S Expiration (test code = 02/09/2020 5318) MD WeinerHemoglobin [id number] 17:33:43 Test Item Value Reference Range Interpretation Comments A1C (test code = 4.5 % 4.3-5.6 HbA1c value s >=6.5% are 4632) diagnostic of d iabetes mellitus.Diagno sis should be confirmed by repeat testing.Therape utic Action suggested: >8.0 % HbA1c; Goal oftherapy: <7.0% HbA1c MD WeinerPartial Thromboplastin [id number] 17:10:17 Test Item Value Reference Range Interpretation Comments PTT (test code = 23.9 See_Comment L Rechecked a nd 6773) Verified [Automated message] The system which generated this result transmitted reference range : 24.2 - 36.0 second(s). The reference range was not used to interpret this result as normal/abnormal . VETO (test code = VETO) This lab cannot be scheduled at the following locations due to collection/procc essing restrictions: [facility] and [facility]. Lab Interpretation Abnormal (test code = 78718-8) MD WeinerProthrombin [id number] 17:10:16 Test Item Value Reference Range Interpretation Comments PT (test code 13.7 See_Comment [Automated me ssage] = 6746) The system Medic Traceic h generated this result transmitted ref erence range: 12.0 - 1 4.3 second(s). The reference range was not used to int erpret this result as normal/abnormal . INR (test code 1.07 0.90-1.10 = 5973) VETO (test code This lab cannot be = VETO) scheduled at the following locations due to collection/proccess ing restrictions: [facility] and [facility]. MD WeinerCalcium Ionized, [id number] 09:41:08 Test Item Value Reference Range Interpretation Comments V Ion Ca (test code = 10278-9) 1.05 mmol/L 1.15-1.29 L Lab Interpretation (test code = Abnormal 92558-7) [facility]On [id number] 16:49:33 Test Item Value Reference Range Interpretation Comments Ordered (test code = Test Added 6568) Test Needed (test code Phosphorus, Magnesium = 7604) MD WeinerCT Chest Abdomen Pelvis with and without [id number] 12:40:06 1. Stable right supraclavicular, upper and lower paratracheal lymphadenopathy.2. No interval changes of the multiple known pulmonary nodules. This is a preliminary fellow report and has not been reviewed by an attending radiologist. A revised report is to follow shortly. FINAL FACULTY IMPRESSION: I agree with the above adapted preliminary report which now constitutes the final authorized report. I personally reviewed these image(s) along with the resident's/fellow's interpretations, certify that if a procedure was performed I was physically present, and agree with the final report.Interface, Radiology Results In - 01/31/2020 6:43 AM CSTFULL RESULT:Examination: CT CHEST ABDOMEN PELVIS W WO CONTRAST, 01/31/2020 2:16 AMClinical History: 49-year-old female patient with history of a non-small cell carcinoma of the lung metastatic to the brain and thyroid.Indication: restaging scanComparison: CT of the chest with contrast dated 01/18/2020 CT of the abdomen and pelvis dated 11/30/2018.Technique: CT of the abdomen was performed without intravenous contrast followed by CT of the chest, abdomen, and pelvis with intravenous contrast.Findings: * Chest:The right supraclavicular, right upper and lower paratracheal lymphadenopathy, measuring up to 17 mm in maximum diameter, remain stable in size since the previous examination dated 01/18/2020. Thyroid remains atrophic on the right side.Lung parenchymal imaging is limited by expiratory nature of study which results in diffuse increased groundglass opacity. Concurrent infection cannot entirely be excluded. Multiple pulmonary nodules are again noted, the largest located at the superior segment of the right lower lobe [series 6, image 64], measuring up to 10 mm in maximum diameter, without definitive significant changes as compared to the previous exam. By reference to prior imaging some of these nodules have previously been larger and therefore may reflect treated metastases and/or concurrent benign nodulesThe remainder of the thoracic structures are unremarkable.* Abdomen and pelvis:Fatty infiltration of the liver. Postoperative changes of cholecystectomy. Postoperative changes of gastric band placement are again noted.The remainder abdominal organs are unremarkable.No aggressive osseous lesion.IMPRESSION:1. Stable right supraclavicular, upper and lower paratracheal lymphadenopathy.2. No interval changes of the multiple known pulmonary nodules.This is a preliminary fellow report and has not been reviewed by an attending radiologist. A revised report is to follow shortly. FINAL FACULTY IMPRESSION:I agree with the above adapted preliminary report which now constitutes the final authorized report.I personally reviewed these image(s) along with the resident's/fellow's interpretations, certify that if a procedure was performed I was physically present, and agree with the final report.MD Landaverde COVID-19 (THU-CoV-2) PCR Asymptomatic 2020-01-31 12:39:24 Test Item Value Reference Interpretation Comments Range COVID19 SARS Inpatient Admission Indication (test code = 19542) COVID19 SARS Result Not Detected Not Detected (test code = 78852-2) COVID19 SARS SARS-CoV-2 NOT Detected. Interpretation (test Reference Range: Not code = 63567) Detected Methodology: The [employer] RealTime SARS-CoV-2 assay is a qualitative real-time reverse student services vice president polymerase chain reaction (swage toolsetter-PCR) test to detect RNA from SARS-CoV-2 in nasal, nasopharyngeal and oropharyngeal swabs from patients with signs and symptoms of infection who are suspected of COVID-19 by their health care provider. The [employer] RealTime SARS-CoV-2 performed on the Cadent000 System is a dual target assay with primers and probes for the RdRp and N genes. Results must be interpreted within the context of all relevant clinical and laboratory findings, and epidemiological risk factors. Positive results are indicative of the presence of SARS-CoV-2 RNA; clinical correlation with patient history and other diagnostic information is necessary to determine patient infection status. Positive results do not rule out bacterial infection or co-infection with other viruses. Negative results do not preclude SARS-CoV-2 infection and should not be used as the sole basis for patient management decisions. The [employer] RealTime SARS-CoV-2 assay is for in vitro diagnostic use under FDA Emergency Use Authorization only. Testing is limited to laboratories certified under the Clinical Laboratory Improvement Amendments of 1988 (CLIA), 42U.S.C. 263a, to perform high complexity tests. The Test was performed by the CLIA-certified, high-complexity Molecular Diagnostics Laboratory (MDL) at [facility] under the Food and Drug Administration (FDA) s Emergency Use Authorization. Factsheet for patients: https://www.mdanderson.org/ AbbottFactSheetPatientsFact sheet for healthcare providers: https://www.mdanderson.org/ AbbottFactSheetHCP Test performed by:[facility] Molecular Diagnostic [id number] [place] [address] [facility] [id number] 04:39:03 Test Item Value Reference Interpretation Comments Range UA WBC (test code = 3 See_Comment H [Automa mirella 7904) message] The system which generated this result transmitted reference range : 0 - 2 /HPF. The reference range was not used to interpret this result as normal/abnormal . UA RBC (test code = 3 See_Comment H [Automa mirella 7891) message] The system which generated this result transmitted reference range : 0 - 2 /HPF. The reference range was not used to interpret this result as normal/abnormal . UA Mucous (test code TRACE TRACE /HPF = 7887) UA Bacteria (test NOT SEEN NOT SEEN /HPF code = 7870) UA Squam Epi (test 2+ OCC /HPF A code = 7896) UA Hyal Cast (test 1 See_Comment [Automat ed code = 7883) message] The system which generated this result transmitted reference range : 0 - 2 /LPF. The reference range was not used to interpret this result as normal/abnormal . VETO (test code = Some reporting VETO) parameters within the Urinalysis test have changed due to the implementation of new instrumentation in the [facility] [place], allowing greater sensitivity of measurement. Urinalysis results reported by the [facility] using existing instrumentation, as well as Urinalysis testing performed manually or by backup methodology at the [facility] [place] will remain relatively unchanged. New reporting parameters and units will now be reported for all campuses. Lab Interpretation Abnormal (test code = 07410-0) MD WeienrUrinalysis w/Microscopic if [id number] 04:30:49 Test Item Value Reference Range Interpretation Comments UA Color (test code = 7877) Yellow Yellow UA Appear (test code = 7868) Clear Clear UA Glucose (test code = 7881) NEG NEG mg/dL UA Bili (test code = 7871) NEG NEG UA Ketones (test code = 7884) 80 mg/dL NEG A UA Spec Grav (test code = 7894) 1.029 1.002-1.035 UA Blood (test code = 7872) NEG NEG UA pH (test code = 7909) 6.0 4.5-8.0 UA Protein (test code = 7890) 30 mg/dL NEG A UA Urobilinogen (test code = 7903) NEG NEG UA Nitrite (test code = 7888) NEG NEG UA Leuk Est (test code = 7886) Trace NEG A Lab Interpretation (test code = Abnormal 32532-6) MD WeinerOSI CT [id number] 02:18:54Study acquired at another institution. For comparison only. No MD Weiner originated interpretationrequested or available.MD [id number] 13:56:36 Test Item Value Reference Range Interpretation Comments LDH (test code = 6111) 495 U/L 135-214 H Resul ts greater than 1651 U/L may no t be reliable due to matrix effect w ith extended diluti on as it exceeds the class b driver s recommended l imit. Caution should be exercised when interpreting price ch values and done in conjunction wit h clinical contex t. Lab Interpretation (test Abnormal code = 44796-2) MD WeinerSCR MAMM BILATERAL FABIO CAD [id number] 08:38:34 - SCR MAMM BILATERAL FABIO CAD DIGITALBILATERAL DIGITAL SCREENING MAMMOGRAM 3D/2D WITH CAD: 09/11/2018CLINICAL: Asymptomatic. Digital breast tomosynthesis was performed in addition to routine CC and MLO views. Current mammographic images were evaluated by either a [employer] M-Vu or a [employer] ImageChecker CAD (computer aided detection system). Comparison is made to exams dated 09/06/2017 mammogram, 08/30 mammogram - [facility], and 12/16/2013 mammogram - [facility]. There are scattered fibroglandular tissues in both breasts. There are benign calcificationsin both breasts. No suspicious mass, architectural distortion, malignant type calcification, or lymph node abnormality detected. Breast architecture is stable compared to prior exams.IMPRESSION: BENIGNThere is no mammographic evidence of malignancy. Resume annual screening mammography in one year. Zac Gallagher M.D. et/penrad:09/17/2018 08:38:34 Expander: Renata Regalado MM, Collaaj Mammographyletter sent: BIRADS 1-2 Normal Mammogram BI-RADS: 2 Benign- XR UGI W/AIR W/O [id number] 15:50:00 Patient Name: BRIGIDA COLBY Unit No: [id number] EXAMS: CPT CODE: [id number] XR UGI W/AIR W/O KUB [id number] Exam: Single contrast upper GI Location: B2 [...] Davis M.D. CC: Pennie Grimm MD Technologist: [facility] STUDENT ; Willie Ireland RT(R) Transcrpt Date/Tm/Trnsp: 07/09/2018 (6643) [email or web address] Print D/T: S: 07/09/2018 (3961) [facility] NAME: BRIGIDA COLBY [id number] PHYS: [place] [address] : 1970 AGE: 47 SEX: F LOC: ZMelRAD PHONE #: [phone] EXAM DATE: 07/09/2018 STATUS: REG CLI FAX #: [phone] RADIOLOGY NO: PAGE 1 Signed Report
[2020-07-09] MEDS ORDERED: MORPHINE 4 MG/ML SYR ONE (13:19)
[2020-07-09] MEDS ORDERED: ONDANSETRON 4 MG/2 ML VIAL ONE ×2 (13:19→18:23)
[2020-07-09] MEDS ORDERED: NA CHLORIDE 0.9% 1,000 ML ONE ×3 (13:20→18:14)
[2020-07-09 13:47] LABS: Basophils % 0.6 % (0-1.3); Hematocrit 33.7 % (36.0-45.0); Lymphocytes % 23.9 % (15.3-44.8); MPV 9.7 fL (7.6-11.3); RBC Red Blood Cell Count 3.98 M/uL (3.86-4.86)
[2020-07-09 13:51] LABS: ALT/SGPT 27 U/L (12-78); AST/SGOT 46 U/L (15-37); Albumin 3.4 g/dL (3.4-5.0); Alkaline Phosphatase 145 U/L (45-117); BUN Blood Urea Nitrogen 11 mg/dL (7-18); Bicarbonate 34 mmol/L (21-32); Bilirubin Direct 0.2 mg/dL (0-0.2); Bilirubin Total 0.5 mg/dL (0.2-1.0); Creatine Phosphokinase 585 U/L (26-192); Glucose Level 89 mg/dL (74-106); Magnesium 2.2 mg/dL (1.8-2.4); NT PRO-BNP 43 pg/mL (<125); Protein, Total 7.4 g/dL (6.4-8.2); Sodium Level 140 mmol/L (136-145); Troponin (Emerg Dept Use Only) < 0.02 ng/mL (0.0-0.045)
--- NOTE | 2020-07-09 13:58 | RAD REPORT ---
EXAM DESCRIPTION: RAD - Chest Single View - 07/09/2020 1:44 pm CLINICAL HISTORY: Labs Chest pain. COMPARISON: Chest Single View dated 01/30/2020; CHEST SINGLE VIEW dated 05/20/2014; CTANGIO CHEST FOR PE dated 05/20/2014 FINDINGS: Portable technique limits examination quality. The lungs are grossly clear. The heart is normal in size. No displaced fractures. IMPRESSION: No acute intrathoracic process suspected.
[2020-07-09] MEDS ORDERED: POTASSIUM 25 MEQ EFFERV TAB ONE (14:28)
[2020-07-09] MEDS ORDERED: KCL 20 MEQ/100 mL IVPB 20 MEQ/100 ML BAG IV ONE ×2 (14:29→18:14)
--- NOTE | 2020-07-09 15:15 | EDPHYS ---
Physician Documentation [facility] Name: Zari Posadas Age: 49 yrs Sex: Female : 1970 Arrival Date: 07/09/2020 Time: 11:11 Bed 7 Private MD: Axel Conway HPI: 07/09 13:00 This 49 yrs old Female presents to ER via Ambulatory with complaints of jr8 Abnormal Lab Results. 13:00 Patient presents at request of her oncologist reporting decreased potassium levels and jr8 elevated CK. 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 She is on chemo and radiation and has been experiencing N/V/D. She reports a "burning feeling" in her chest. . Historical: - Allergies: 11:26 No Known Allergies; hb - Home Meds: 11:26 crizotinib Oral [Active]; Diphenoxylate-Atropine Oral [Active]; Lorazepam Oral hb [Active]; venlafaxine Oral [Active]; - PMHx: 11:26 Lung Cancer; hb - PSHx: 11:26 Cholecystectomy; Fallopian tubes removed; lap band; hb - Immunization history:: Adult Immunizations up to date. - Social history:: Smoking status: Patient denies any tobacco usage or history of. ROS: 12:57 Eyes: Negative for injury, pain, redness, and discharge, ENT: Negative for injury, jr8 pain, and discharge, Respiratory: Negative for shortness of breath, cough, wheezing, and pleuritic chest pain, MS/Extremity: Negative for injury and deformity, Neuro: Negative for headache, weakness, numbness, tingling, and seizure. 12:57 Constitutional: Positive for fatigue. 12:57 Cardiovascular: Positive for a burning feeling. 12:57 Abdomen/GI: Positive for vomiting, diarrhea. 12:57 Allergy/Immunology: 12:57 Hematologic/Lymphatic: Positive for Ca with mets to Lungs and brain. 12:57 All other systems are negative. Exam: 12:59 Chest/axilla: Normal chest wall appearance and motion. Nontender with no deformity. jr8 No lesions are appreciated. Cardiovascular: Regular rate and rhythm with a normal S1 and S2. No gallops, murmurs, or rubs. Normal PMI, no JVD. No pulse deficits. MS/ Extremity: Pulses equal, no cyanosis. Neurovascular intact. Full, normal range of motion. Neuro: Awake and alert, GCS 15, oriented to person, place, time, and situation. Cranial nerves II-XII grossly intact. Motor strength 5/5 in all extremities. Sensory grossly intact. Cerebellar exam normal. Normal gait. 12:59 Constitutional: The patient appears alert, awake, pale. 12:59 Respiratory: the patient does not display signs of respiratory distress, Respirations: normal, Breath sounds: decreased breath sounds, that are mild, are scattered. 12:59 Abdomen/GI: Inspection: obese Bowel sounds: hyperactive, in all quadrants, Palpation: abdomen is soft and non-tender, in all quadrants. Vital Signs: 11:22 BP 104 / 90; Pulse 71; Resp 16; Temp 97.8; Pulse Ox 99% on R/A; Pain 0/10; hb 13:46 BP 85 / 55; Pulse 56; Resp 14; Pulse Ox 98% ; ll1 15:19 BP 84 / 53; Pulse 66; Resp 14; Pulse Ox 98% on R/A; ll1 16:22 BP 98 / 64; Pulse 67; Resp 14; Pulse Ox 100% on R/A; ll1 18:48 BP 98 / 80; Pulse 78; Resp 15; Pulse Ox 98% on R/A; ll1 19:30 BP 99 / 69; Pulse 78; Resp 16; Pulse Ox 98% on R/A; jb4 20:04 BP 98 / 44; Pulse 70; Resp 18; Pulse Ox 99% on R/A; mg2 MDM: 12:31 Patient medically screened. jr8 15:13 Data reviewed: vital signs, nurses notes, lab test result(s). Data interpreted: Pulse jr8 oximetry: on room air is 98 %. Interpretation: normal. Counseling: I had a detailed discussion with the patient and/or guardian regarding: the historical points, exam findings, and any diagnostic results supporting the discharge/admit diagnosis, lab results, the need for further work-up and treatment in the hospital. Response to treatment: the patient's symptoms have mildly improved after treatment. 07/09 12:45 Order name: Basic Metabolic Panel; Complete Time: 13:58 8 07/09 12:45 Order name: CBC with Diff; Complete Time: 13:51 8 07/09 12:45 Order name: LFT's; Complete Time: 13:58 [facility] 07/09 12:45 Order name: Magnesium; Complete Time: 13:58 [facility] 07/09 12:45 Order name: NT PRO-BNP; Complete Time: 13:58 [facility] 07/09 12:45 Order name: PT-INR; Complete Time: 13:47 [facility] 07/09 12:45 Order name: Troponin (emerg Dept Use Only); Complete Time: 13:58 [facility] 07/09 12:45 Order name: XRAY Chest (1 view); Complete Time: 14:00 [facility] 07/09 12:45 Order name: CK; Complete Time: 13:58 [facility] 07/09 13:58 Order name: Phosphorus [facility] 07/09 13:58 Order name: Phosphorus; Complete Time: 15:14 [facility] 07/09 15:44 Order name: COVID-19 : Document "Date of Symptom Onset" if Symptomatic. 07/09 17:22 Order name: SARS-COV-2 RT PCR; Complete Time: 17:48 [facility] 07/09 12:45 Order name: EKG; Complete Time: 12:46 [facility] 07/09 12:45 Order name: Cardiac monitoring; Complete Time: 13:10 [facility] 07/09 12:45 Order name: EKG - Nurse/Tech; Complete Time: 13:10 [facility] 07/09 12:45 Order name: IV Saline Lock; Complete Time: 13: 07/09 12:45 Order name: Labs collected and sent; Complete Time: 13:10 [facility] 07/09 12:45 Order name: O2 Per Protocol; Complete Time: 13: [facility] 07/09 12:45 Order name: O2 Sat Monitoring; Complete Time: 13: [facility] 07/09 15:20 Order name: Regular EDMS Administered Medications: 13:08 Drug: morphine 4 mg Route: IVP; Site: right forearm; ll1 13:46 Follow up: Response: Pain is decreased; Blood pressure is lowered; RASS: Alert and Calm ll1 (0) 13:08 Drug: Zofran (Ondansetron) 4 mg Route: IVP; Site: right forearm; ll1 13:46 Follow up: Response: No adverse reaction; RASS: Alert and Calm (0) ll1 13:08 Drug: NS 0.9% 1000 ml Route: IV; Rate: 1 bolus; Site: right forearm; ll1 15:07 Follow up: Response: No adverse reaction; RASS: Alert and Calm (0); IV Status: ll1 Completed infusion; IV Intake: 1000ml 15:06 Drug: Potassium Effervescent Tablet 50 mEq Route: PO; ll1 17:28 Follow up: Response: No adverse reaction; RASS: Alert and Calm (0) ll1 15:06 Drug: NS 0.9% 1000 ml Route: IV; Rate: 1000 ml; Site: right forearm; ll1 17:29 Follow up: Response: No adverse reaction; RASS: Alert and Calm (0); IV Status: ll1 Completed infusion; IV Intake: 1000ml 15:07 Drug: Potassium Chloride 20 mEq Route: IV; Rate: calculated rate; Site: right forearm; ll1 18:02 Drug: Potassium Chloride 20 mEq Route: IV; Rate: calculated rate; Site: right forearm; ll1 18:09 Drug: Zofran (Ondansetron) 4 mg Route: IVP; Site: right forearm; ll1 18:49 Follow up: Response: No adverse reaction; Nausea is decreased; RASS: Alert and Calm (0) 1 Disposition: 07/09/20 15:14 Hospitalization ordered by Adair Almonte for Observation. Preliminary diagnosis are Hypotension, Hypokalemia. - Bed requested for Telemetry/MedSurg (observation). - Status is Observation. mg2 - Condition is Stable. - Problem is new. - Symptoms have improved. Addendum: 07/11/2020 08:15 Co-signature as Attending Physician, Axel Weiner MD I agree with the assessment and c william plan of care. Signatures: Dispatcher [employer] EDSC Nava Galvan RN RN mw Anderson, Corey, MD MD cha Roszak, Josh, PA PA jr8 Sabrina Prabhakar RN RN hb Gardose, Michele, RN RN mg2 Brittany Figueroa RN RN ll1 Corrections: (The following items were deleted from the chart) 07/09 20:01 15:14 Hospitalization Ordered by Adair Almonte MD for Observation. Preliminary diagnosis is Hypotension; Hypokalemia. Bed requested for Telemetry/MedSurg (observation). Status is Observation. Condition is Stable. Problem is new. Symptoms have improved. jr8 20:49 20:01 07/09/2020 15:14 Hospitalization Ordered by Adair Almonte MD for Observation. mg2 Preliminary diagnosis is Hypotension; Hypokalemia. Bed requested for Telemetry/MedSurg (observation). Status is Observation. Condition is Stable. Problem is new. Symptoms have improved. mw
--- NOTE | 2020-07-09 15:15 | ER ---
Nurse's Notes [facility] Name: Zari Posadas Age: 49 yrs Sex: Female : 1970 Arrival Date: 07/09/2020 Time: 11:11 Bed 7 Private MD: Diagnosis: Hypotension;Hypokalemia Presentation: 07/09 11:22 Chief complaint: Sent by oncologist Dr. Casiano at [facility] ([phone]) for K 2.4 hb and CK 722. Receiving alectimib for metastatic lung CA. Pt reports N/V/D x 3 weeks r/t chemo. Coronavirus screen: Client presents with at least one sign or symptom that may indicate coronavirus-19. Standard/surgical mask placed on the client. Provider contacted for isolation considerations. Ebola Screen: No symptoms or risks identified at this time. Initial Sepsis Screen: Does the patient meet any 2 criteria? No. Patient's initial sepsis screen is negative. Does the patient have a suspected source of infection? No. Patient's initial sepsis screen is negative. Risk Assessment: Do you want to hurt yourself or someone else? Patient reports no desire to harm self or others. Onset of symptoms was July 09, 2020. 11:22 Method Of Arrival: Ambulatory hb 11:22 Acuity: TYSHAWN 3 hb Historical: - Allergies: 11:26 No Known Allergies; hb - Home Meds: 11:26 crizotinib Oral [Active]; Diphenoxylate-Atropine Oral [Active]; Lorazepam Oral hb [Active]; venlafaxine Oral [Active]; - PMHx: 11:26 Lung Cancer; hb - PSHx: 11:26 Cholecystectomy; Fallopian tubes removed; lap band; hb - Immunization history:: Adult Immunizations up to date. - Social history:: Smoking status: Patient denies any tobacco usage or history of. Screenin:33 Abuse screen: Denies threats or abuse. Nutritional screening: No deficits noted. ll1 Tuberculosis screening: No symptoms or risk factors identified. Fall Risk IV access (20 points). Gait- Weak (10 pts.). Total Rogers Fall Scale indicates Low Risk Score (25-44 pts). Fall prevention measures have been instituted. Side Rails Up X 2 Frequent Obs/Assesments occuring As available Patient and Family Educated on Fall Prevention Program and strategies. Assessment: 13:00 General: Appears uncomfortable, Behavior is calm, cooperative, appropriate for age. ll1 General: abnormal lab results. Low K+. Pain: Complains of pain in back Quality of pain is described as aching, Aggravated by increased activity. Neuro: No deficits noted. Cardiovascular: No deficits noted. Respiratory: No deficits noted. GI: Abdomen is round Bowel sounds present X 4 quads. Abd is soft and non tender X 4 quads. Reports diarrhea, nausea, vomiting. Musculoskeletal: Circulation, motion, and sensation intact. Capillary refill < 3 seconds, Range of motion: intact in all extremities, Reports pain in back. 14:00 Reassessment: No changes from previously documented assessment. Patient and/or family ll1 updated on plan of care and expected duration. Pain level reassessed. Patient is alert, oriented x 3, equal unlabored respirations, skin warm/dry/pink. 15:00 Reassessment: No changes from previously documented assessment. Patient and/or family ll1 updated on plan of care and expected duration. Pain level reassessed. 16:00 Reassessment: No changes from previously documented assessment. Patient and/or family ll1 updated on plan of care and expected duration. Pain level reassessed. Patient is alert, oriented x 3, equal unlabored respirations, skin warm/dry/pink. 17:00 Reassessment: No changes from previously documented assessment. Patient and/or family ll1 updated on plan of care and expected duration. Pain level reassessed. 18:00 Reassessment: No changes from previously documented assessment. Patient and/or family ll1 updated on plan of care and expected duration. Pain level reassessed. 19:05 Reassessment: Patient appears in no apparent distress at this time. Patient and/or jb4 family updated on plan of care and expected duration. Pain level reassessed. Patient is alert, oriented x 3, equal unlabored respirations, skin warm/dry/pink. 19:36 Reassessment: Pt assisted to restroom by family member via wheelchair. jb4 Vital Signs: 11:22 BP 104 / 90; Pulse 71; Resp 16; Temp 97.8; Pulse Ox 99% on R/A; Pain 0/10; hb 13:46 BP 85 / 55; Pulse 56; Resp 14; Pulse Ox 98% ; ll1 15:19 BP 84 / 53; Pulse 66; Resp 14; Pulse Ox 98% on R/A; ll1 16:22 BP 98 / 64; Pulse 67; Resp 14; Pulse Ox 100% on R/A; ll1 18:48 BP 98 / 80; Pulse 78; Resp 15; Pulse Ox 98% on R/A; ll1 19:30 BP 99 / 69; Pulse 78; Resp 16; Pulse Ox 98% on R/A; jb4 20:04 BP 98 / 44; Pulse 70; Resp 18; Pulse Ox 99% on R/A; mg2 ED Course: 11:11 Patient arrived in ED. mr 11:26 Triage completed. hb 12:30 Wilbur Alvarenga PA is PHCP. jr8 12:31 Axel Weiner MD is Attending Physician. jr8 12:31 Brittany Figueroa, RN is Primary Nurse. ll1 12:32 Arm band placed on Patient placed in an exam room, on a stretcher. ll1 13:00 Inserted saline lock: 22 gauge in right forearm, using aseptic technique. Blood ll1 collected. 13:33 Patient has correct armband on for positive identification. Bed in low position. Call ll1 light in reach. Side rails up X 1. manager core on. Pulse ox on. NIBP on. 13:44 XRAY Chest (1 view) In Process Unspecified. EDMS 15:13 Adair Almonte MD is Hospitalizing Provider. jr8 19:20 Primary Nurse role handed off by Brittany Figueroa, RN jb4 19:20 Deo Broderick, RN is Primary Nurse. jb4 20:16 No provider procedures requiring assistance completed. Patient admitted, IV remains in jb4 place. 20:16 No provider procedures requiring assistance completed. mg2 Administered Medications: 13:08 Drug: morphine 4 mg Route: IVP; Site: right forearm; ll1 13:46 Follow up: Response: Pain is decreased; Blood pressure is lowered; RASS: Alert and Calm ll1 (0) 13:08 Drug: Zofran (Ondansetron) 4 mg Route: IVP; Site: right forearm; ll1 13:46 Follow up: Response: No adverse reaction; RASS: Alert and Calm (0) ll1 13:08 Drug: NS 0.9% 1000 ml Route: IV; Rate: 1 bolus; Site: right forearm; ll1 15:07 Follow up: Response: No adverse reaction; RASS: Alert and Calm (0); IV Status: ll1 Completed infusion; IV Intake: 1000ml 15:06 Drug: Potassium Effervescent Tablet 50 mEq Route: PO; ll1 17:28 Follow up: Response: No adverse reaction; RASS: Alert and Calm (0) ll1 15:06 Drug: NS 0.9% 1000 ml Route: IV; Rate: 1000 ml; Site: right forearm; ll1 17:29 Follow up: Response: No adverse reaction; RASS: Alert and Calm (0); IV Status: ll1 Completed infusion; IV Intake: 1000ml 15:07 Drug: Potassium Chloride 20 mEq Route: IV; Rate: calculated rate; Site: right forearm; ll1 18:02 Drug: Potassium Chloride 20 mEq Route: IV; Rate: calculated rate; Site: right forearm; ll1 18:09 Drug: Zofran (Ondansetron) 4 mg Route: IVP; Site: right forearm; ll1 18:49 Follow up: Response: No adverse reaction; Nausea is decreased; RASS: Alert and Calm (0) [facility] Intake: 15:07 IV: 1000ml; Total: 1000ml. ll1 17:29 IV: 1000ml; Total: 2000ml. 1 Outcome: 15:14 Decision to Hospitalize by Provider. jrBeba 20:16 Admitted to Med/surg accompanied by tech, via stretcher, with chart. jb4 20:16 Condition: stable 20:16 Discharge instructions given to patient, family, Instructed on the need for admit, Demonstrated understanding of instructions. 20:49 Patient left the ED. mg2 Signatures: Dispatcher [employer] EDVA Sofie Shaw Wilbur Orona PA PA jr8 Sabrina Prabhakar RN RN hb Bryson, James, RN RN jb4 Carlos Vilchis RN RN mg2 Brittany Figueroa RN RN ll1
[2020-07-09] MEDS ORDERED: ACETAMINOPHEN 500 MG TAB PO PRN (15:17)
[2020-07-09] MEDS ORDERED: ONDANSETRON 4 MG/2 ML VIAL IV PRN (15:17)
--- NOTE | 2020-07-09 15:26 | P.HP ---
Certification for Inpatient Patient admitted to: Observation With expected LOS: <2 Midnights Patient will require the following post-hospital care: None Practitioner: I am a practitioner with admitting privileges, knowledge of patient current condition, hospital course, and medical plan of care. Services: Services provided to patient in accordance with Admission requirements found in Title 42 Section 412.3 of the Code of Federal Regulations Patient History Date of Service: 07/09/20 Reason for admission: Intractable nausea and vomiting History of Present Illness: 49 yrs old Female with past medical history of metastatic thyroid / lung cancer with metastasis to the brain status post surgery on chemotherapy and radiation has been followed at [facility] for oncology care had a lab test done there which showed hypokalemia with potassium of 2.4 and was advised to come to the ER for replacing potassium. patient states that she was having nausea vomiting and diarrhea for the last 4 days , denies any chest pain No fever or chills No sick contacts Denies any abdominal pain Patient was assessed in the ER and was found to be having hypokalemia with potassium of 2 and was admitted for further management. Vitals are stable at the time of admission. Allergies No Known Drug Allergies Allergy (Unverified 07/24/16 11:02) Unknown Home medications list reviewed: Yes Home Medications: NK [No Home Meds] 07/24/16 - Past Medical/Surgical History Diabetic: No -: Cancer Past Surgical History: Reviewed- Non-Contributory -: rachael -: lap band -: fallopian tube removal - Family History Family History: Reviewed- Non-Contributory - Family History Mother -: Heart disease, Hypertension, Diabetes - Social History Smoking Status: Never smoker Alcohol use: Yes CD- Drugs: No Caffeine use: Yes Review of Systems 10-point ROS is otherwise unremarkable Gastrointestinal: Nausea, Vomiting, Diarrhea Physical Examination - Vital Signs Temperature: 97.8 F Blood Pressure: 88/64 Pulse: 76 Respirations: 18 Pulse Ox (%): 96 - Physical Exam General: Alert, In no apparent distress, Oriented x3 HEENT: Atraumatic, Normocephalic Neck: Supple, 2+ carotid pulse no bruit Respiratory: Clear to auscultation bilaterally, Normal air movement Cardiovascular: Regular rate/rhythm, Normal S1 S2 Capillary refill: <2 Seconds Gastrointestinal: Soft and benign, W/out hepatosplenomegaly, No tenderness Musculoskeletal: No clubbing, No swelling Integumentary: No rashes, No breakdown Neurological: Normal speech, Normal strength at 5/5 x4 extr Lymphatics: No axilla or inguinal lymphadenopathy Urinary: Other (No bladder distention) - Studies Laboratory Data (last 24 hrs) 07/09/20 12:55: Phosphorus 3.8 07/09/20 12:55: PT 11.5, INR 1.00 07/09/20 12:55: WBC 4.20 L, Hgb 11.4 L, Hct 33.7 L, Plt Count 231 07/09/20 12:55: Sodium 140, Potassium 2.0 L*, BUN 11, Creatinine 0.79, Glucose 89, Magnesium 2.2, Total Bilirubin 0.5, AST 46 H, ALT 27, Alkaline Phosphatase 145 H Assessment and Plan - Problems (Diagnosis) (1) Hypokalemia Current Visit: Yes Status: Acute Plan: will start on potassium replacement IV hydration Start on replacement protocol monitor under telemetry Get a BMP in a.m. (2) Intractable nausea and vomiting Current Visit: Yes Status: Acute Plan: Possibly induced by chemotherapy Will continue with Zofran IV hydration (3) Metastatic cancer Current Visit: Yes Status: Chronic Plan: Followed at [facility] Will continue home medications Discuss about for followup with oncologist Qualifiers: Nervous system structure secondary neoplasm location: metastatic to brain (4) Rhabdomyolysis Current Visit: Yes Status: Acute Plan: CK was elevated Aggressive hydration monitor CK level in a.m. Discharge Plan: Home Plan to discharge in: 24 Hours - Advance Directives Does patient have a Living Will: No Does patient have a Durable POA for Healthcare: No - Code Status/Comfort Care Code Status: Full Code Time Spent Managing Pts Care (In Minutes): 46
[2020-07-09] MEDS: ENOXAPARIN 40 MG/0.4 ML SQ SCH (17:00)
[2020-07-09 22:17] VITALS: BMI 34.8
[2020-07-10 05:25] LABS: Absolute Lymphocytes (CBC) 1.3 K/uL (0.7-4.9); Basophils % 1.3 % (0-1.3); Hematocrit 30.3 % (36.0-45.0); Lymphocytes % 30.1 % (15.3-44.8); MPV 9.7 fL (7.6-11.3); RBC Red Blood Cell Count 3.57 M/uL (3.86-4.86)
[2020-07-10 06:09] LABS: ALT/SGPT 22 U/L (12-78); AST/SGOT 35 U/L (15-37); Albumin 2.7 g/dL (3.4-5.0); Alkaline Phosphatase 112 U/L (45-117); BUN Blood Urea Nitrogen 5 mg/dL (7-18); Bicarbonate 32 mmol/L (21-32); Bilirubin Total 0.3 mg/dL (0.2-1.0); Glucose Level 82 mg/dL (74-106); Phosphorus 2.6 mg/dL (2.5-4.9); Protein, Total 5.9 g/dL (6.4-8.2); Sodium Level 147 mmol/L (136-145)
[2020-07-10 06:17] LABS: Potassium 2.2 mmol/L (3.5-5.1)
[2020-07-10] MEDS: KCL 20 MEQ/100 mL IVPB 20 MEQ/100 ML BAG IV SCH ×4 (06:38→23:05)
--- NOTE | 2020-07-10 07:58 | EKG ---
Test Date: 2020-07-09 Test Time: 13:06:41 Chrome Cleaner: LENIN MEASUREMENT RESULTS: Intervals: Rate: 57 OR: 156 QRSD: 88 QT: 486 QTc: 473 Independence: P: 37 OR: 156 QRS: 37 T: 23 INTERPRETIVE STATEMENTS: Sinus bradycardia Nonspecific ST abnormality Abnormal ECG Compared to ECG 01/30/2020 12:10:23 ST (T wave) deviation now present Sinus rhythm no longer present T-wave abnormality no longer present Prolonged QT interval no longer present Electronically Signed On 07-10-20 07:56:35 CDT by Barrett Ortiz
[2020-07-10] MEDS: ENOXAPARIN 40 MG/0.4 ML SQ SCH (09:04)
--- NOTE | 2020-07-10 11:06 | P.PN ---
Subjective Date of Service: 07/10/20 Chief Complaint: Intractable nausea and vomiting Patient denies any nausea since morning. No vomiting and no diarrhea. Potassium level is still quite low at 2.2. Physical Examination - Vital Signs Temperature: 97.1 F Blood Pressure: 109/55 Pulse: 70 Respirations: 16 Pulse Ox (%): 97 - Physical Exam General: Alert, In no apparent distress, Oriented x3 HEENT: Normocephalic, Mucous membr. moist/pink, Sclerae nonicteric Neck: Supple, JVD not distended Respiratory: Clear to auscultation bilaterally, Normal air movement Cardiovascular: No edema, Regular rate/rhythm, Normal S1 S2 Gastrointestinal: Normal bowel sounds, Soft and benign, Non-distended, No tenderness Musculoskeletal: No swelling, No tenderness Integumentary: No rashes Neurological: Normal strength at 5/5 x4 extr, Cranial nerves 3-12 intact - Studies Laboratory Data (last 24 hrs) 07/09/20 12:55: Phosphorus 3.8 07/09/20 12:55: PT 11.5, INR 1.00 07/09/20 12:55: WBC 4.20 L, Hgb 11.4 L, Hct 33.7 L, Plt Count 231 07/09/20 12:55: Sodium 140, Potassium 2.0 L*, BUN 11, Creatinine 0.79, Glucose 89, Magnesium 2.2, Total Bilirubin 0.5, AST 46 H, ALT 27, Alkaline Phosphatase 145 H Assessment And Plan - Current Problems (Diagnosis) (1) Hypokalemia Current Visit: Yes Status: Acute (2) Intractable nausea and vomiting Current Visit: Yes Status: Acute (3) 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 Replace potassium IV. Check magnesium and phosphorus and replace as needed. IV hydration. Antiemetics as needed. Diet as tolerated.
[2020-07-10 12:13] LABS: Phosphorus 2.7 mg/dL (2.5-4.9)
[2020-07-10] MEDS ORDERED: MORPHINE 2 MG/ML SYR IV PRN (15:52)
[2020-07-10] MEDS: POTASSIUM CL SA 10 MEQ TAB PO SCH ×2 (16:49→20:43)
[2020-07-10] MEDS ORDERED: POTASSIUM CL 40 MEQ in NA CHLORIDE 0.9% 500 ML IV SCH (20:00)
[2020-07-10 21:51] VITALS: O2SAT 97
[2020-07-11] MEDS: KCL 20 MEQ/100 mL IVPB 20 MEQ/100 ML BAG IV SCH ×2 (02:22→08:00)
[2020-07-11 05:43] LABS: BUN Blood Urea Nitrogen 2 mg/dL (7-18); Bicarbonate 29 mmol/L (21-32); Glucose Level 81 mg/dL (74-106); Sodium Level 146 mmol/L (136-145)
[2020-07-11] MEDS ORDERED: KCL 20 MEQ/100 mL IVPB 20 MEQ/100 ML BAG IV SCH (10:00)
[2020-07-11] MEDS: ENOXAPARIN 40 MG/0.4 ML SQ SCH (10:25)
[2020-07-11] MEDS ORDERED: POTASSIUM CL 40 MEQ in NA CHLORIDE 0.9% 500 ML IV SCH (13:00)
[2020-07-11] MEDS ORDERED: NA CHLORIDE 0.9% 1,000 ML ONE ×2 (13:52→14:46)
--- NOTE | 2020-07-11 16:47 | P.DS ---
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 Patient was referred to the ER for replacing potassium. She reported nausea vomiting and diarrhea for 4 days. Patient hospitalized for further management. Hospital Course: Patient admitted to the medical floor and given IV potassium replacement. She continued to experience intermittent diarrhea but no vomiting. Potassium level has been replaced to 3.4. She is currently asymptomatic and stable for discharge. She is given refills for her daily oral potassium supplement. Vital Signs/Physical Exam: Temp Pulse Resp BP Pulse Ox 97.8 F 66 18 113/64 96 07/11/20 12:00 07/11/20 12:00 07/11/20 12:00 07/11/20 12:00 07/11/20 12:00 General: Alert, In no apparent distress, Oriented x3 HEENT: Mucous membr. moist/pink Respiratory: Clear to auscultation bilaterally, Normal air movement Cardiovascular: No edema, Regular rate/rhythm, Normal S1 S2 Gastrointestinal: Soft and benign, Non-distended, No tenderness Musculoskeletal: No swelling Integumentary: No rashes Neurological: Normal strength at 5/5 x4 extr Laboratory Data at Discharge: WBC 4.30 K/uL (4.3-10.9) 07/10/20 05:07 Hgb 10.2 g/dL (12.0-15.0) L 07/10/20 05:07 Hct 30.3 % (36.0-45.0) L 07/10/20 05:07 Plt Count 207 K/uL (152-406) 07/10/20 05:07 PT 11.5 SECONDS (9.5-12.5) 07/09/20 12:55 INR 1.00 07/09/20 12:55 Sodium 146 mmol/L (136-145) H 07/11/20 04:53 Potassium 3.0 mmol/L (3.5-5.1) L 07/11/20 04:53 BUN 2 mg/dL (7-18) L 07/11/20 04:53 Creatinine 0.61 mg/dL (0.55-1.3) 07/11/20 04:53 Glucose 81 mg/dL (74-106) 07/11/20 04:53 Phosphorus 2.7 mg/dL (2.5-4.9) 07/10/20 11:39 Magnesium 2.0 mg/dL (1.8-2.4) 07/10/20 11:39 Total Bilirubin 0.3 mg/dL (0.2-1.0) 07/10/20 05:07 AST 35 U/L (15-37) 07/10/20 05:07 ALT 22 U/L (12-78) 07/10/20 05:07 Alkaline Phosphatase 112 U/L (45-117) 07/10/20 05:07 Home Medications: Alectinib HCl [Alecensa] 600 mg PO BID 07/12/20 Potassium Chloride 20 meq PO BID #60 packet 07/12/20 New Medications: Potassium Chloride 20 meq PO BID #60 packet Diet: Regular Followup: SACHIN STEPHENSON [Primary Care Provider] - Time spent managing pt's care (in minutes): 27
[2020-07-12] MEDS ORDERED: NA CHLORIDE 0.9% 1,000 ML ONE (00:31)
[2020-07-12 06:06] LABS: BUN Blood Urea Nitrogen 1 mg/dL (7-18); Bicarbonate 28 mmol/L (21-32); Glucose Level 74 mg/dL (74-106); Potassium 3.4 mmol/L (3.5-5.1); Sodium Level 147 mmol/L (136-145)
[2020-07-12 06:14] VITALS: BP 111/57; TEMP 97.8
[2020-07-12] MEDS: KCL 20 MEQ/100 mL IVPB 20 MEQ/100 ML BAG IV SCH ×2 (08:00→08:07)
[2020-07-12] MEDS: ENOXAPARIN 40 MG/0.4 ML SQ SCH (08:08)
--- NOTE | 2020-07-12 08:29 | P.PN ---
Subjective Date of Service: 07/11/20 Chief Complaint: Intractable nausea and vomiting Patient denies any nausea since morning. She had diarrhea this morning. Potassium level is still quite low at 3.0 Physical Examination - Vital Signs Temperature: 97.8 F Blood Pressure: 111/57 Pulse: 61 Respirations: 16 Pulse Ox (%): 97 - Physical Exam General: Alert, In no apparent distress, Oriented x3 HEENT: Mucous membr. 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 Replace potassium IV. Check magnesium and phosphorus and replace as needed. Continue IV hydration. Antiemetics as needed. Diet as tolerated.
[2020-07-12] MEDS ORDERED: POTASSIUM CL SA 10 MEQ TAB PO ONE (08:34)
== END 2020-07-12 11:30 | disposition home or self-care (01) | DRG 641 ==
LOC: ER 11:07 → ERHOLD 15:51 → 2ND 20:08 → OBSVTOIN 07-10 15:27
PROVIDERS: ADMIT Family Medicine; ATTEND Internal Medicine
DX: E87.6 Hypokalemia (principal); C79.31 Secondary malignant neoplasm of brain; M62.82 Rhabdomyolysis; C73 Malignant neoplasm of thyroid gland; Z85.850 Personal history of malignant neoplasm of thyroid; Z79.899 Other long term (current) drug therapy; Z90.49 Acquired absence of other specified parts of digestive tract; Z20.822 Contact with and (suspected) exposure to COVID-19
CPT/HCPCS: 36415; 71045; 80048; 80053; 80076; 82550; 83735; 83880; 84100; 84132; 84484; 85025; 85610; 93005; 94760; 96361; 96374; 96375; 99285; G0378; J1650; J2270; J2405; J3480; J7030; J7040; U0003

== ENCOUNTER 2023-08-13 19:16 | Emergency (ER) | payer OTHER ==
--- OUTSIDE RECORDS SUMMARY | 2023-08-13 19:27 | XMS REPORT | Clinical Summary ---
Author Name Unknown Organization [facility] Address [address] [place] [address] Care Team Providers Care Firer Retort Name Role Phone Luisana Lucio MD Unavailable [phone] Roseann Jensen MD Unavailable [phone] Sindi Casiano MD Primary Care Provider [phone] Ajith Fink MD Unavailable Annette Kang MD Unavailable [phone] Frannie Emery MD Unavailable [phone] Rajinder English APRN Unavailable Allergies Active Allergy Reactions Criticality Noted Date Comments Zolpidem Other (See Comments) 04/17/2022 Hallucinations Medications Medication Sig Dispensed Refills Start Date End Date Status memantine (NAMENDA) 10 mg tabletIndications :Secondary malignant neoplasm of brain Take 1 tablet (10 mg) by mouth twice daily. 180 tablet 1 11/30/19 23 Active venlafaxine (EFFEXOR-XR) 150 mg 24 hr capsuleIndication s:Secondary malignant neoplasm of brain,Non-small cell carcinoma of lung, TNM stage 4,Clostridium difficile diarrhea,Non-smal l cell carcinoma of lung, TNM stage 4 <Unspecified side>,Malignant neoplasm of unspecified part of unspecified bronchus or lung,Clostridium difficile colitis,Visual hallucination,Ane sully of chronic disease,Seizure, not otherwise specified,Clinic Nurse y hallucination,Sub dural hematoma <Subsequent>,Emily gnant neoplasm related fatigue,Lesion of brain,Chronic diarrhea,Generali zed muscle weakness,Other low back pain,Lymphocytic colitis,Malignant neoplasm of thyroid gland,Hypokalemia Take 1 capsule (150 mg) by mouth daily. 30 capsule 07/29/19 24 Active cholestyramine (QUESTRAN) 4 g packetIndications :Secondary malignant neoplasm of brain,Non-small cell carcinoma of lung, TNM stage 4,Clostridium difficile diarrhea,Non-smal l cell carcinoma of lung, TNM stage 4 <Unspecified side>,Malignant neoplasm of unspecified part of unspecified bronchus or lung,Clostridium difficile colitis,Visual hallucination,Ane sully of chronic disease,Seizure, not otherwise specified,Clinic Nurse y hallucination,Sub dural hematoma <Subsequent>,Emily gnant neoplasm related fatigue,Lesion of brain,Chronic diarrhea,Generali zed muscle weakness,Other low back pain,Lymphocytic colitis,Malignant neoplasm of thyroid gland,Hypokalemia Take 1 packet (4 g) by mouth twice daily for 30 days. Mix powder in 4 ounces of juice. 60 packet 07/29/19 24 024 Active mesalamine (LIALDA) 1.[address] tabletIndications :Secondary malignant neoplasm of brain,Non-small cell carcinoma of lung, TNM stage 4,Clostridium difficile diarrhea,Non-smal l cell carcinoma of lung, TNM stage 4 <Unspecified side>,Malignant neoplasm of unspecified part of unspecified bronchus or lung,Clostridium difficile colitis,Visual hallucination,Ane sully of chronic disease,Seizure, not otherwise specified,Clinic Nurse y hallucination,Sub dural hematoma <Subsequent>,Emily gnant neoplasm related fatigue,Lesion of brain,Chronic diarrhea,Generali zed muscle weakness,Other low back pain,Lymphocytic colitis,Malignant neoplasm of thyroid gland,Hypokalemia Take 4 tablets (4.8 g) by mouth daily with breakfast for 30 days. 120 tablet 07/30/19 24 024 Active levETIRAcetam (KEPPRA) 1000 mg tabletIndications :Non-small cell carcinoma of lung, TNM stage 4,Secondary malignant neoplasm of brain,Clostridium difficile diarrhea,Non-smal l cell carcinoma of lung, TNM stage 4 <Unspecified side>,Malignant neoplasm of unspecified part of unspecified bronchus or lung,Clostridium difficile colitis,Visual hallucination,Ane sully of chronic disease,Seizure, not otherwise specified,Clinic Nurse y hallucination,Sub dural hematoma <Subsequent>,Emily gnant neoplasm related fatigue,Lesion of brain,Chronic diarrhea,Generali zed muscle weakness,Other low back pain,Lymphocytic colitis,Malignant neoplasm of thyroid gland,Hypokalemia Take 1 tablet (1,000 mg) by mouth twice daily for 90 days. 60 tablet 2 08/11/19 24 024 Active ondansetron (ZOFRAN) 8 mg tabletIndications :Non-small cell carcinoma of lung, TNM stage 4 <Unspecified side> Take 1 tablet (8 mg) by mouth every 8 (eight) hours as needed for nausea or vomiting. 30 tablet 08/11/19 24 Active nystatin (MYCOSTATIN) 100,000 units/g creamIndications: Rash of groin Apply topically to affected area(s) twice daily. 30 g 08/11/19 24 Active pantoprazole (PROTONIX) 40 mg EC tabletIndications :Nausea with vomiting Take 1 tablet (40 mg) by mouth every morning before breakfast for 90 days. 30 tablet 2 08/12/19 24 024 Active topical paste menthol-white petrolatum-zinc oxide (REMEDY CALAZIME) 0.44-20.6 % psteIndications:R josé miguel of groin Apply 1 application topically to affected area(s) as needed (Groin rash). 113 g 1 08/11/19 24 Active venlafaxine (EFFEXOR-XR) 150 mg 24 hr capsule TAKE 1 CAPSULE (150 MG) BY MOUTH DAILY WITH FOOD 01/20/20 20 024 Discontinued(St op Taking at Discharge) memantine (Namenda) 10 mg tabletIndications :Secondary malignant neoplasm of brain TAKE ONE TABLET BY MOUTH DAILY FOR 7 DAYS, THEN TAKE 1 TABLET BY MOUTH TWO TIMES A DAY FOR 6 MONTHS. 180 tablet 1 04/08/19 21 023 Discontinued ceritinib (Zykadia) 150 mg tabletIndications :Malignant neoplasm of unspecified part of unspecified bronchus or lung Take 2 tablets (300 mg) by mouth daily. Take with food. 60 tablet 5 07/28/19 22 024 Discontinued(St op Taking at Discharge) memantine (NAMENDA) 10 mg tabletIndications :Secondary malignant neoplasm of brain Take 1 tablet (10 mg) by mouth twice daily. 180 tablet 1 08/25/19 22 023 Discontinued propranolol (INDERAL) 10 mg tablet 11/09/19 22 024 Discontinued(Re order) ceritinib (ZYKADIA) 150 mg tabletIndications :Malignant neoplasm of unspecified part of unspecified bronchus or lung Take 3 tablets (450 mg) by mouth daily. 84 tablet 5 02/09/20 22 024 Discontinued(St op Taking at Discharge) diphenoxylate-atr opine (LomotiL) 2.5 mg-0.025 mg per tabletIndications :Malignant neoplasm of unspecified part of unspecified bronchus or lung,Diarrhea Take 1-2 tablets by mouth every 6 (six) hours as needed for diarrhea. Not to exceed 8 tablets per day 60 tablet 3 06/06/19 23 024 Discontinued(Re order) acetaminophen-cod eine (Tylenol-Codeine #3) 300 mg-30 mg tabletIndications :Non-small cell carcinoma of lung, TNM stage 4 <Unspecified side> Take 1 tablet by mouth 3 (three) times a day as needed for moderate pain. 30 tablet 06/22/19 23 024 Discontinued(St op Taking at Discharge) levETIRAcetam (Keppra) 1000 mg tabletIndications :Other seizure Take 1 tablet (1,000 mg) by mouth twice daily. 60 tablet 3 06/30/19 23 024 Discontinued(St op Taking at Discharge) potassium chloride (Klor-Con M20) 20 mEq tabletIndications :Hypokalemia Take 2 tablets (40 mEq) by mouth twice daily for 90 days. 360 tablet 10/03/19 23 023 eszopiclone (LUNESTA) 2 mg tablet Take 1 tablet (2 mg) by mouth at bedtime. PRN 11/17/19 23 024 Discontinued(St op Taking at Discharge) buPROPion (WELLBUTRIN XL) 150 mg 24 hr tablet Take 1 tablet (150 mg) by mouth daily. 024 Discontinued(St op Taking at Discharge) potassium chloride (MICRO-K) 10 mEq CR capsule Take 1 capsule (10 mEq) by mouth 3 (three) times a day. Discontinued gabapentin (NEURONTIN) 300 mg capsule Take 1 capsule (300 mg) by mouth 3 (three) times a day. 024 Discontinued(St op Taking at Discharge) potassium chloride (Klor-Con M20) 20 mEq tabletIndications :Hypokalemia Take 2 tablets (40 mEq) by mouth daily for 90 days. 180 tablet 03/26/19 24 024 Discontinued lorlatinib (Lorbrena) 100 mg tabletIndications :Malignant neoplasm of unspecified part of unspecified bronchus or lung Take 1 tablet by mouth daily 30 tablet 3 04/18/19 24 024 Discontinued(St op Taking at Discharge) ondansetron (ZOFRAN) 8 mg tabletIndications :Non-small cell carcinoma of lung, TNM stage 4 <Unspecified side> Take 1 tablet (8 mg) by mouth every 8 (eight) hours as needed for nausea or vomiting. 30 tablet 05/16/19 24 024 Discontinued(Re order) diphenoxylate-atr opine (LomotiL) 2.5 mg-0.025 mg per tabletIndications :Malignant neoplasm of unspecified part of unspecified bronchus or lung,Diarrhea Take 1-2 tablets by mouth every 6 (six) hours as needed for diarrhea. Not to exceed 8 tablets per day 60 tablet 3 05/17/19 24 024 Discontinued(St op Taking at Discharge) rosuvastatin (Crestor) 10 mg tabletIndications :Hyperlipidemia, not otherwise specified,Non-sma ll cell carcinoma of lung, TNM stage 4 <Unspecified side> Take 1 tablet (10 mg) by mouth at bedtime for 30 days. 30 tablet 06/22/19 24 024 potassium chloride (Klor-Con M20) 20 mEq tabletIndications :Hypokalemia Take 2 tablets (40 mEq) by mouth daily for 90 days. 180 tablet 06/22/19 24 024 Discontinued(St op Taking at Discharge) ARIPiprazole (ABILIFY) 2 mg tabletIndications :Auditory hallucination Take 0.5 tablets (1 mg) by mouth daily for 30 days. 15 tablet 06/30/19 24 024 Discontinued(St op Taking at Discharge) miscellaneous medical supply miscIndications:A uditory hallucination Physical and occupational therapy evaluation and treat. 1 each 06/29/19 24 024 Discontinued(St op Taking at Discharge) levETIRAcetam (KEPPRA) 500 mg tabletIndications :Auditory hallucination Take 1 tablet (500 mg) by mouth twice daily. 120 tablet 07/01/19 24 024 Discontinued(St op Taking at Discharge) loperamide (IMODIUM) 2 mg capsuleIndication s:Chronic diarrhea Take 1 capsule (2 mg) by mouth 3 (three) times a day before meals. Hold if no BM 60 capsule 07/01/19 24 Discontinued(St op Taking at Discharge) mesalamine (LIALDA) 1.[address] tabletIndications :Weakness,Falls,P ain in lower limb,Secondary malignant neoplasm of brain,Non-small cell carcinoma of lung, TNM stage 4,Acute urinary tract infection,Metasta tic malignant neoplasm to brain,Anemia of chronic disease,Auditory hallucination,Lym phocytic colitis,Hypophosp hatemia,Renal insufficiency,Gen eralized muscle weakness,Poor balance,Rhabdomyo lysis,Abnormal gait due to muscle weakness,Abnormal liver function,Creatine kinase level above reference range,Chronic diarrhea,Nausea with vomiting,Lesion of brain,Malignant neoplasm related fatigue,Other psychological or physical stress, not elsewhere classified,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 disease,Disorder of fluid AND/OR electrolyte,Hypok alemia,Aphasia,Ce rebral edema,Malignant neoplasm of thyroid gland,Choking Take 2 tablets (2.4 g) by mouth daily with breakfast. 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,Anemia of chronic disease,Auditory hallucination,Lym phocytic colitis,Hypophosp hatemia,Renal insufficiency,Gen eralized muscle weakness,Poor balance,Rhabdomyo lysis,Abnormal gait due to muscle weakness,Abnormal liver function,Creatine kinase level above reference range,Chronic diarrhea,Nausea with vomiting,Lesion of brain,Malignant neoplasm related fatigue,Other psychological or physical stress, not elsewhere classified,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 Mixing instructions: Tap bottom of bottle containing powder for oral solution to loosen powder; shake provided grape flavored diluent. Add about half of the provided diluent to the bottle containing the powder for oral solution, recap and shake for approximately 45 seconds. Add rest of diluent and shake for approximately 30 seconds. 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,Anemia of chronic disease,Auditory hallucination,Lym phocytic colitis,Hypophosp hatemia,Renal insufficiency,Gen eralized muscle weakness,Poor balance,Rhabdomyo lysis,Abnormal gait due to muscle weakness,Abnormal liver function,Creatine kinase level above reference range,Chronic diarrhea,Nausea with vomiting,Lesion of brain,Malignant neoplasm related fatigue,Other psychological or physical stress, not elsewhere classified,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 disease,Disorder of fluid AND/OR electrolyte,Hypok alemia,Aphasia,Ce rebral edema,Malignant neoplasm of thyroid gland,Choking Take 1 tablet (10 mg) by mouth daily. 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,Anemia of chronic disease,Auditory hallucination,Lym phocytic colitis,Hypophosp hatemia,Renal insufficiency,Gen eralized muscle weakness,Poor balance,Rhabdomyo lysis,Abnormal gait due to muscle weakness,Abnormal liver function,Creatine kinase level above reference range,Chronic diarrhea,Nausea with vomiting,Lesion of brain,Malignant neoplasm related fatigue,Other psychological or physical stress, not elsewhere classified,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 disease,Disorder of fluid AND/OR electrolyte,Hypok alemia,Aphasia,Ce rebral edema,Malignant neoplasm of thyroid gland,Choking Take 2 tablets (2.4 g) by mouth daily with breakfast. 60 tablet 07/07/19 24 024 Discontinued vancomycin (FIRVANQ) 50 mg/mL oral solutionIndicatio ns:Weakness,Falls ,Pain in lower limb,Secondary malignant neoplasm of brain,Non-small cell carcinoma of lung, TNM stage 4,Acute urinary tract infection,Metasta tic malignant neoplasm to brain,Anemia of chronic disease,Auditory hallucination,Lym phocytic colitis,Hypophosp hatemia,Renal insufficiency,Gen eralized muscle weakness,Poor balance,Rhabdomyo lysis,Abnormal gait due to muscle weakness,Abnormal liver function,Creatine kinase level above reference range,Chronic diarrhea,Nausea with vomiting,Lesion of brain,Malignant neoplasm related fatigue,Other psychological or physical stress, not elsewhere classified,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 Mixing instructions: Tap bottom of bottle containing powder for oral solution to loosen powder; shake provided grape flavored diluent. Add about half of the provided diluent to the bottle containing the powder for oral solution, recap and shake for approximately 45 seconds. Add rest of diluent and shake for approximately 30 seconds. 300 mL 07/07/19 24 024 mesalamine (LIALDA) 1.[address] tabletIndications :Diarrhea,Lymphoc ytic colitis Take 2 tablets (2,400 mg) by mouth twice daily for 90 days. 360 tablet 07/20/19 24 024 Discontinued(St op Taking at Discharge) fidaxomicin (Dificid) 200 mg tabletIndications :Clostridium difficile diarrhea Take 1 tablet (200 mg) by mouth twice daily for 10 days. 20 tablet 07/26/19 24 024 Discontinued(St op Taking at Discharge) levETIRAcetam (KEPPRA) 750 mg tabletIndications :Secondary malignant neoplasm of brain,Non-small cell carcinoma of lung, TNM stage 4,Clostridium difficile diarrhea,Non-smal l cell carcinoma of lung, TNM stage 4 <Unspecified side>,Malignant neoplasm of unspecified part of unspecified bronchus or lung,Clostridium difficile colitis,Visual hallucination,Ane sully of chronic disease,Seizure, not otherwise specified,Clinic Nurse y hallucination,Sub dural hematoma <Subsequent>,Emily gnant neoplasm related fatigue,Lesion of brain,Chronic diarrhea,Generali zed muscle weakness,Other low back pain,Lymphocytic colitis,Malignant neoplasm of thyroid gland,Hypokalemia Take 1 tablet (750 mg) by mouth twice daily for 30 days. 60 tablet 07/29/19 24 024 Discontinued(Re order) fidaxomicin (DIFICID) 200 mg tabletIndications :Secondary malignant neoplasm of brain,Non-small cell carcinoma of lung, TNM stage 4,Clostridium difficile diarrhea,Non-smal l cell carcinoma of lung, TNM stage 4 <Unspecified side>,Malignant neoplasm of unspecified part of unspecified bronchus or lung,Clostridium difficile colitis,Visual hallucination,Ane sully of chronic disease,Seizure, not otherwise specified,Clinic Nurse y hallucination,Sub dural hematoma <Subsequent>,Meily gnant neoplasm related fatigue,Lesion of brain,Chronic diarrhea,Generali zed muscle weakness,Other low back pain,Lymphocytic colitis,Malignant neoplasm of thyroid gland,Hypokalemia Take 1 tablet (200 mg) by mouth every 12 (twelve) hours for 13 doses. 13 tablet 07/29/19 24 024 Discontinued(St op Taking at Discharge) ondansetron (ZOFRAN) 8 mg tabletIndications :Non-small cell carcinoma of lung, TNM stage 4 <Unspecified side> Take 1 tablet (8 mg) by mouth every 8 (eight) hours as needed for nausea or vomiting. 30 tablet 07/29/19 24 024 Discontinued(Re order) Active Problems Problem Noted Date Diagnosed Date Acute encephalopathy 08/07/2023 Sepsis 07/31/2023 Leukocytosis 07/31/2023 Hypotension 07/31/2023 Clostridium difficile colitis 07/26/2023 Confusion 07/25/2023 Visual hallucination 07/25/2023 Diarrhea 07/19/2023 Malignant neoplasm of unspecified part of bronch us or lung 07/19/2023 Seizure 06/30/2023 Anemia of chronic disease 06/30/2023 Auditory hallucination 06/27/2023 Subdural hematoma 05/14/2022 Overview: Added automatically from request for surgery [id number] Lymphocytic colitis 10/20/2021 Acute renal failure syndrome 10/18/2021 Metabolic acidosis 10/18/2021 Severe protein-calorie malnutrition 09/18/2021 Hypophosphatemia 09/16/2021 Acute renal insufficiency 07/05/2021 Low back pain, unspecified 07/05/2021 Overview: 12/17 CMS regulatory import Urinary tract infection 07/05/2021 Poor balance 04/18/2021 Generalized muscle weakness 04/18/2021 Abnormal liver function 12/18/2020 Pain in lower limb 12/17/2020 Increased creatine kinase level 12/17/2020 Myositis 12/17/2020 Nausea with vomiting 12/03/2020 Overview: Added automatically from request for surgery [id number] Chronic diarrhea 12/03/2020 Overview: Added automatically from request for surgery [id number] Lesion of brain 02/03/2020 Overview: Added automatically from request for surgery [id number] Hypokalemia 01/31/2020 Disorder of fluid AND/OR electrolyte 01/31/2020 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 disease 0 Cerebral edema 01/30/2020 Secondary malignant neoplasm of brain 01/30/2020 Aphasia 01/30/2020 Depressive disorder 01/30/2018 Non-small cell carcinoma of lung, TNM stage 4 Dysphagia 07/31/2016 Choking 07/31/2016 Thyroid cancer 07/31/2016 Overview: Mandatory [facility] ICD-10 2020 UPDATE Other psychological or physi pito stress, not elsewhere classified Malignant neoplasm related fatigue Abnormal gait due to muscle weakness Rhabdomyolysis Encounters Date Type Department Care Team Description 08/08/2023 10:12 AM CDT Anesthesia Event [facility] [address] [place] [address] [facility], 3rd [place] [address] Nedra Oscar MD Thomas, Cini, SUSANA,OBSTETRICS NURSE PRACTITIONER 07/31/2023 Travel 07/30/2023 8:38 PM CDT - 08/11/2023 2:13 PM CDT Hospital Encounter MAIN [address] [place] [address] Shadia Clement MD Gao, Lucy C, MD Franco Vega, Maria, MD Leung, Cerena, MD Tanwir, Hira, MD Dickson, Kodwo, MD Weakness (Primary Dx); Hypotension; Diarrhea; Non-small cell carcinoma of lung, TNM stage 4; Secondary malignant neoplasm of brain; Clostridium difficile diarrhea; Non-small cell carcinoma of lung, TNM stage 4 <Unspecified side>; Malignant neoplasm of unspecified part of unspecified bronchus or lung; Clostridium difficile colitis; Visual hallucination; Anemia of chronic disease; Seizure, not otherwise specified; Auditory hallucination; Subdural hematoma <Subsequent>; Malignant neoplasm related fatigue; Lesion of brain; Chronic diarrhea; Generalized muscle weakness; Other low back pain; Lymphocytic colitis; Thyroid cancer; Hypokalemia; Nausea with vomiting; Severe protein-calorie malnutrition, not otherwise specified; Rash of groin Discharge Disposition: Home 07/30/2023 Travel 07/30/2023 Prep for [facility] [address] [place] [address], 7th [place] [address] Mounika Caballero, CANTEEN OPERATOR 07/30/2023 Case Management Case Management [address] [place] [address] Johnie Velasco RN 07/27/2023 Orders Only [facility] [address] [place] [address], 2nd [place] [address] Jonathan Mohr [facility] 07/26/2023 9:54 AM CDT Anesthesia Event [facility] [address] [place] [address], 3rd [place] [address] Elisa Reyes CRNA 07/26/2023 Orders Only [facility] [address] [place] [address], 7th [place] [address] Suzi Dias Seizure, not otherwise specified (Primary Dx) 07/25/2023 Travel 07/24/2023 8:53 PM CDT - 07/29/2023 5:11 PM CDT Hospital Encounter MAIN [address] [place] [address] Shadia Clement MD Gao, Lucy C, MD Franco Vega, Maria, MD Musaelyan, Arine, MD Clostridium difficile diarrhea (Primary Dx); Acute confusion; Secondary malignant neoplasm of brain; Non-small cell carcinoma of lung, TNM stage 4; Non-small cell carcinoma of lung, TNM stage 4 <Unspecified side>; Malignant neoplasm of unspecified part of unspecified bronchus or lung; Clostridium difficile colitis; Visual hallucination; Anemia of chronic disease; Seizure, not otherwise specified; Auditory hallucination; Subdural hematoma <Subsequent>; Malignant neoplasm related fatigue; Lesion of brain; Chronic diarrhea; Generalized muscle weakness; Other low back pain; Lymphocytic colitis; Thyroid cancer; Hypokalemia; Depressive disorder, not otherwise specified; Disorder of fluid AND/OR electrolyte; Confusion; Diarrhea; Metabolic acidosis, not otherwise specified; Other acute kidney failure; Severe protein-calorie malnutrition, not otherwise specified; Hypophosphatemia; Urinary tract infection, not otherwise specified; Renal insufficiency; Poor balance; Rhabdomyolysis; Abnormal gait due to muscle weakness; Abnormal liver function; Myositis, not otherwise specified; Increased creatine kinase level; Pain in lower limb; Nausea with vomiting; Other psychological or physical stress, not elsewhere classified; 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 disease; Aphasia; Cerebral edema; Choking; Dysphagia, not otherwise specified Discharge Disposition: Home 07/24/2023 Travel 07/24/2023 Case Management Case Management [address] [place] [address] Johnie Velasco RN 07/23/2023 10:45 AM CDT Ancillary Procedure [facility] Imaging [address] [facility], 7th [place] [address] Dalia Weiner APRN Non-small cell carcinoma of lung, TNM stage 4 <Unspecified side> 07/23/2023 9:15 AM CDT - 07/23/2023 11:59 PM CDT Hospital Encounter [facility] [address] [place] [address] Dalia Weiner APRN Non-small cell carcinoma of lung, TNM stage 4 <Unspecified side> Discharge Disposition: Home 07/20/2023 Orders Only [facility], 7th [place] [address] JunekMounika APRN Diarrhea (Primary Dx); Lymphocytic colitis 07/20/2023 Travel 07/19/2023 8:00 AM CDT Telemedicine [facility] [address] [facility], 7th [place] [address] Mounika Caballero APRN Lymphocytic colitis (Primary Dx); Diarrhea 07/19/2023 Prep for Surgery [facility]ology & [facility], 7th [place] [address] JunekMounika APRN Lymphocytic colitis (Primary Dx); Diarrhea; Malignant neoplasm of unspecified part of unspecified bronchus or lung 07/18/2023 Case Management Case Management [address] [place] [address] Johnie Velasco, RN 07/17/2023 Telephone Colorectal Center - Colon and Rectal Surgery [facility]5 [facility], 7th [place] [address] Chika Pastrana MA 07/17/2023 Orders Only Thoracic Center - Medical Oncology [address] [place] [address], 9th [place] [address] Dalia Weiner APRN Non-small cell carcinoma of lung, TNM stage 4 <Unspecified side> (Primary Dx) 07/16/2023 Case Management Case Management [address] [place] [address] Johnie Velasco, RN 07/12/2023 Telephone Case Management [address] [place] [address] Johnie Velasco, RN 07/12/2023 Telephone Case Management [address] [place] [address] Johnie Velasco, RN 07/11/2023 Orders Only Gastrointestinal Center - Gastroenterology, Hepatology & Nutrition [address] [place] [address], 7th [place] [address] Mounika Caballero APRN Lymphocytic colitis (Primary Dx) 07/09/2023 Case Management Case Management [address] [place] [address] Johnie Velasco, RASHMI 07/05/2023 Orders Only Neuroradiology [address] [place] [address] Gilles Beatty MD 07/03/2023 3:02 PM CDT - 07/07/2023 6:40 PM CDT Hospital Encounter MAIN [address] [place] [address] Abhijit Farr MD Musunuru, Tejo, MD Franco Vega, Maria, MD Weakness (Primary Dx); Falls; Pain in lower limb; Secondary malignant neoplasm of brain; Non-small cell carcinoma of lung, TNM stage 4; Acute urinary tract infection; Metastatic malignant neoplasm to brain; Anemia of chronic disease; Auditory hallucination; Lymphocytic colitis; Hypophosphatemia; Renal insufficiency; Generalized muscle weakness; Poor balance; Rhabdomyolysis; Abnormal gait due to muscle weakness; Abnormal liver function; Increased creatine kinase level; Chronic diarrhea; Nausea with vomiting; Lesion of brain; Malignant neoplasm related fatigue; Other psychological or physical stress, not elsewhere classified; 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 disease; Disorder of fluid AND/OR electrolyte; Hypokalemia; Aphasia; Cerebral edema; Thyroid cancer; Choking Discharge Disposition: Home with Home-Health or Physical Therapy 07/03/2023 Travel 07/03/2023 Telephone [facility] - Medical Oncology [address] [place] [address], 9th [place] [address] Ildefonso Donaldson MA 07/03/2023 Telephone [facility] - Neurosurgery [address] [place] [address] Main Bldg, 7th [place] [address] Yumiko Briones RN 06/30/2023 Orders Only [facility] - Neuro Oncology [address] [place] [address] Main dg, 7th [place] [address] Shae Cosme MD Secondary malignant neoplasm of brain (Primary Dx) 06/29/2023 2:08 PM CDT Anesthesia Event [facility] [address] [place] [address] Main Bldg, 3rd Floor Elevator F [place] [id number] Asim Ontiveros DO Thomas, Nina, APRN 06/27/2023 5:31 PM CDT - 07/01/2023 6:33 PM CDT Hospital Encounter MAIN [address] [place] [address] Kalpana William MD Wechsler, Adriana, MD Yeung, Sai-Ching, MD Musunuru, Tejo, MD Etchegaray-Langly, Mikel, MD Auditory hallucination (Primary Dx); Secondary malignant neoplasm of brain; Non-small cell carcinoma of lung, TNM stage 4; Poor balance; Depressive disorder; Chronic diarrhea; Subdural hematoma <Subsequent>; Iron deficiency anemia, not otherwise specified Discharge Disposition: Home 06/27/2023 Travel 06/22/2023 Orders Only Thoracic [place] - Medical Oncology [address] [place] [address] Main [facility], 9th Floor Elevator B [place] [phone] Dalia Weiner APRN Non-small cell carcinoma of lung, TNM stage 4 <Unspecified side> (Primary Dx); Hyperlipidemia, not otherwise specified; Hypokalemia 06/18/2023 Orders Only Thoracic [facility] Medical Oncology [address] [place] [address] Main [facility], 9th [place] [address] Dalia Weiner, SUSANA Malignant neoplasm of unspecified part of unspecified bronchus or lung (Primary Dx) 06/12/2023 Telephone Thoracic [place] - Medical Oncology [address] [place] [address] Main dg, 9th [place] [address] Alex Bo MA 06/08/2023 12:30 PM CDT Telemedicine [facility] - Neurosurgery [facility]5 [facility] Main Bldg, 7th Floor Elevator B [place] [phone] Mark Batista MD Ferguson, Sherise D., MD Secondary malignant neoplasm of brain 06/05/2023 Orders Only Neuroradiology [address] [place] [address] Joslyn Sy MD 06/05/2023 Orders Only Radiation Treatment Center [address] [place] [address] Main dg, 1st Floor near Elevator G [place] [phone] Saira Carrasquillo APRN Secondary malignant neoplasm of brain (Primary Dx) 06/04/2023 1:44 PM CDT - 06/04/2023 11:59 PM CDT Hospital Encounter Rad[facility] Treatment Center [address] [place] [address] Main dg, 1st Floor near Elevator G [place] [phone] Bree Calderón MD Secondary malignant neoplasm of brain (Primary Dx) Discharge Disposition: Home 06/04/2023 11:26 AM CDT Anesthesia Event [facility] [address] [place] [address] Main dg, 3rd [place] [address] Darius Zelaya MD Kwok, Cindy, CRNA 06/04/2023 10:15 AM CDT - 06/04/2023 1:43 PM CDT Hospital Encounter [facility] [address] [place] [address] Main Bldg, 3rd [place] [address] Saira Carrasquillo APRN Potylchansky, Yury, MD Kwok, Cindy, CRNA Secondary malignant neoplasm of brain Discharge Disposition: Home 06/04/2023 Travel 06/01/2023 11:59 PM CDT Anesthesia Event Perioperative Evaluation [facility] Management [facility] [address] [place] [address] Main Bldg, 6th [place] [address] Rahel Smallwood APRN 06/01/2023 4:30 PM CDT POEM Appointments Perioperative [facility] Management [facility] [address] [facility] Main Bldg, 6th [place] [address] Sindi Casiano MD 05/17/2023 Orders Only [facility] - Medical Oncology [address] Main Bldg, 9th [place] [address] Dalia Weiner, SUSANA Malignant neoplasm of unspecified part of unspecified bronchus or lung (Primary Dx) 05/17/2023 Orders Only [facility] - Medical Oncology [address] Main Bldg, 9th [place] [address] Dalia Weiner APRN Malignant neoplasm of unspecified part of unspecified bronchus or lung; Diarrhea 05/16/2023 Refill Thoracic [place] - Medical Oncology [address] Main Bldg, 9th [place] [address] Dalia Weiner, SUSANA Malignant neoplasm of unspecified part of unspecified bronchus or lung; Diarrhea 05/03/2023 Documentation [facility] Treatment [facility] [address] [facility] Main Bld[place] [address] Bree Calderón MD 05/02/2023 Orders Only [facility] - Medical Oncology [address] [facility] Main Bldg, 9th [place] [address] Dalia Weiner, CANTEEN OPERATOR Non-small cell carcinoma of lung, TNM stage 4 <Unspecified side> (Primary Dx) 04/18/2023 2:40 PM HOT BRAIDER - 04/18/2023 11:59 PM HOT BRAIDER Hospital Encounter Diagnostic Laboratory Center 15[address] [facility] Main Bldg, [place] [address] Sindi Casiano MD Malignant neoplasm of unspecified part of unspecified bronchus or lung Discharge Disposition: Home 04/18/2023 1:00 PM HOT BRAIDER Follow-Up Thoracic [place] - Medical Oncology [address] [facility] Main Bldg, 9th [place] [address] Sindi Casiano MD Malignant neoplasm of unspecified part of unspecified bronchus or lung (Primary Dx); Non-small cell carcinoma of lung, TNM stage 4 <Unspecified side> 04/18/2023 Documentation Rehabilitation Services [address] [facility], 1st Floor G1.3418 [place] [address] Gabriella Zohreh Mcguire, PT 04/18/2023 Orders Only [facility] Center - Medical Oncology [address] [facility], 9th [place] [address] Rosa Almendarez, JeanethD Malignant neoplasm of unspecified part of unspecified bronchus or lung (Primary Dx) 04/18/2023 Travel 04/16/2023 2:05 PM HOT BRAIDER Ancillary Procedure CT Imaging 12[address] [facility], 7th [place] [address] Dalia Weiner, CANTEEN OPERATOR Non-small cell carcinoma of lung, TNM stage 4 <Unspecified side> 04/12/2023 9:30 AM HOT BRAIDER - 04/12/2023 11:59 PM HOT BRAIDER Hospital Encounter Radiation Treatment Center [facility]5 [facility], 1st [place] [address] Saira Carrasquillo APRN Secondary malignant neoplasm of brain Discharge Disposition: Home 04/12/2023 Orders Only [facility] - Neurosurgery [facility]5 [facility], 7th [place] [address] Rajinder English, SUSANA Lesion of brain (Primary Dx) 04/11/2023 8:13 AM HOT BRAIDER Anesthesia Event Rad[facility] Treatment Center [address] [place] [address] Radiation Oncology [place] Take Elevator G to the Basement [place] [address] Kenton Reich MD 04/11/2023 7:10 AM HOT BRAIDER - 04/11/2023 11:40 AM HOT BRAIDER Surgery [facility] [address] [place] [address] Radiation Oncology [place] Take Elevator G to the Basement [place] [address] Bree Calderón MD 4 STAR - STEREOTACTIC RADIATION [place] MANAGEMENT,CRANIAL LESION 04/11/2023 7:03 AM HOT BRAIDER - 04/11/2023 5:39 PM HOT BRAIDER Hospital Encounter Radiation Treatment Center 15[address] [facility] Main Radiation Oncology Center Take Elevator G to the Basement [place] [address] Mark Batista MD Discharge Disposition: Home 04/11/2023 Documentation Radiation Treatment Center 15[address] [facility] Main Bld[place] [address] Bree Calderón MD 04/11/2023 Documentation Radiation Treatment Center [address] [facility] Main Bldg [place] [address] Bree Calderón MD 04/11/2023 Documentation Radiation Treatment Center [address] [facility] Main Bldg [place] [address] Bree Calderón MD 04/11/2023 Travel 04/10/2023 11:00 AM HOT BRAIDER - 04/10/2023 11:59 PM HOT BRAIDER Hospital Encounter Radiation Treatment Center 15[address] [facility] Main Bldg, 1st [place] [address] Saira Carrasquillo, Arun Laws, RASHMI Secondary malignant neoplasm of brain Discharge Disposition: Home 04/10/2023 Prep for Surgery [facility]surgery [address] [facility] Main Bldg, 7th [place] [address] Rajinder English, SUSANA 04/10/2023 Documentation [facility] - Neurosurgery [address] Main Bldg, 7th [place] [address] Marcella Hopper, CANTEEN OPERATOR 04/10/2023 Prep for Surgery [facility] - Neurosurgery [address] Main Bldg, 7th [place] [address] Marcella Hopper, CANTEEN OPERATOR Secondary malignant neoplasm of brain (Primary Dx) 04/09/2023 10:37 AM HOT BRAIDER - 04/09/2023 11:59 PM HOT BRAIDER Hospital Encounter Diagnostic Laboratory Center 15[address] [facility] Main Bldg, [place] [address] Saira Carrasquillo APRN Secondary malignant neoplasm of brain Discharge Disposition: Home 04/09/2023 7:28 AM HOT BRAIDER Anesthesia Event Diagnostic [facility] [address] [facility] Main Bldg, 3rd [place] [address] Darius Zelaya MD 04/09/2023 6:08 AM HOT BRAIDER - 04/09/2023 10:36 AM HOT BRAIDER Hospital Encounter Diagnostic Imaging Center 15[address] [facility] Main Bldg, 3rd [place] [address] Saira Carrasquillo APRN Mirza, Alisa, CRNA Potylchansky, Yury, MD Secondary malignant neoplasm of brain Discharge Disposition: Home 04/06/2023 11:59 PM HOT BRAIDER Anesthesia Event [facility] [facility] Main Bldg, 6th [place] [address] Yamilet Gibson RN 04/06/2023 11:30 AM HOT BRAIDER POEM Appointments [facility] Main Bldg, 6th [place] [address] Sindi Casiano MD 03/26/2023 Orders Only Thoracic Center - Medical Oncology [address] [facility] Main Bldg, 9th [place] [address] Dalia Weiner APRN Hypokalemia (Primary Dx) 03/02/2023 Documentation Radiation Treatment Center [facility]5 [facility] Main Bldg, 1st [place] [address] Curtis Welsh APRN 02/27/2023 Orders Only Neuroradiology [address] [place] [address] Tere Hawkins MD 02/27/2023 Orders Only Radiation Treatment Center [address] [place] [address] Main Bldg, 1st [place] [address] Saira Carrasquillo APRN Secondary malignant neoplasm of brain (Primary Dx) 02/26/2023 2:49 PM HOT BRAIDER - 02/26/2023 11:59 PM HOT BRAIDER Hospital Encounter Radiation Treatment Center 15[address] [facility] Main Bldg, 1st [place] [address] Bree Calderón MD Secondary malignant neoplasm of brain Discharge Disposition: Home 02/26/2023 Travel 02/14/2023 9:23 AM HOT BRAIDER Anesthesia Event Diagnostic Imaging Center 15[address] [facility] Main Bldg, 3rd [place] [address] Bambi Hernandez MD 02/14/2023 8:00 AM HOT BRAIDER - 02/14/2023 11:59 PM HOT BRAIDER Hospital Encounter Diagnostic Imaging Center [address] Main Bldg, 3rd Floor Elevator F [place] [phone] Jailene Crespo CRNA Oliver, Jodi Ann, MD Secondary malignant neoplasm of brain Discharge Disposition: Home 02/07/2023 11:59 PM HOT BRAIDER Anesthesia Event Perioperative Evaluation and Management Center 15[address] [facility] Main Bldg, 6th Floor Elevator A [place] [phone] Miguel Angel Riggins RN 02/07/2023 12:00 PM HOT BRAIDER POEM Appointments Perioperative Evaluation and Management Center [facility]5 [facility] Main Bldg, 6th Floor Elevator A [place] [phone] Sindi Casiano MD 01/29/2023 [facility] Thoracic Center - Medical Oncology [address] [facility] Main Bldg, 9th Floor Elevator B [place] [phone] Dalia Weiner APRN Non-small cell carcinoma of lung, TNM stage 4 <Unspecified side> (Primary Dx) 01/17/2023 7:50 AM CDT - 01/17/2023 11:59 PM CDT Hospital Encounter Main [facility] Main Bldg, 3rd Floor Elevator A [place] [phone] Dalia Weiner APRN Non-small cell carcinoma of lung, TNM stage 4 <Unspecified side> Discharge Disposition: Home 01/17/2023 7:24 AM CDT - 01/17/2023 7:49 AM CDT Hospital Encounter Diagnostic Laboratory Center [address] [facility] Main Bldg, [place] [address] Dalia Weiner APRN Non-small cell carcinoma of lung, TNM stage 4 <Unspecified side> Discharge Disposition: Home 01/17/2023 Orders Only Thoracic Center - Medical Oncology [address] [facility] Main Bldg, 9th [place] [address] Rosa Almendarez, Greer 01/09/2023 Orders Only Neuroradiology [address] [place] [address] Sharlene Wayne MD 01/09/2023 Orders Only Radiation Treatment Center [address] [place] [address] Main Bldg, 1st [place] [address] Vicky Denise APRN Secondary malignant neoplasm of brain (Primary Dx) 01/08/2023 4:00 PM CDT - 01/08/2023 11:59 PM CDT Hospital Encounter Radiation Treatment Center [address] [place] [address] Main Bldg, 1st [place] [address] Bree Calderón MD Secondary malignant neoplasm of brain Discharge Disposition: Home 01/05/2023 9:44 AM CDT Anesthesia Event Diagnostic Imaging Center [facility]5 [facility] Main Bldg, 3rd [place] [address] Moni Malloy MD Kwok, Cindy, CRNA 01/05/2023 8:00 AM CDT - 01/05/2023 11:59 PM CDT Hospital Encounter Diagnostic Imaging Center [facility]5 [facility] Main Bldg, 3rd [place] [address] Lois Willingham MD Nguyen, Anh-Thuy, MD Casarez, Vianey, CRNA Secondary malignant neoplasm of brain Discharge Disposition: Home 01/04/2023 4:00 PM CDT POEM Appointments Perioperative Evaluation and Management Center [address] [place] [address] Main Bldg, 6th [place] [address] Sindi Casiano MD 12/11/2022 [facility] - Medical Oncology [address] [facility] Main Bldg, 9th [place] [address] Carmelita Cisse RN 11/29/2022 11:59 PM CDT Anesthesia Event Perioperative Evaluation and Management Center 15[address] [facility] Main Bldg, 6th [place] [address] Navarro Briseno II, CANTEEN OPERATOR 11/29/2022 10:21 AM CDT - 11/29/2022 11:59 PM CDT Hospital Encounter Diagnostic Laboratory Center [address] [place] [address] Dalia Weiner APRN Non-small cell carcinoma of lung, TNM stage 4 <Unspecified side> Discharge Disposition: Home 11/29/2022 9:32 AM CDT - 11/29/2022 10:20 AM CDT Hospital Encounter Interventional Radiology 12[address] [facility], 4th [place] [address] Sindi Casiano MD Chen, Stephen, MD Subdural hematoma <Subsequent> (Primary Dx); Follow-up 7-11 months Discharge Disposition: Home 11/29/2022 6:00 AM CDT Ancillary Procedure CT Imaging 12[address] [facility], 7th [place] [address] Randa Méndez PA 11/29/2022 Orders Only Radiation Treatment Center 15[address] [facility] Main dg, 1st [place] [address] Lois Willingham MD 11/29/2022 Travel 11/27/2022 Orders Only Thoracic Center - Medical Oncology [address] [facility] Main Bldg, 9th [place] [address] Dalia Weiner APRN Non-small cell carcinoma of lung, TNM stage 4 <Unspecified side> (Primary Dx) 11/16/2022 Orders Only [facility] Center - Medical Oncology [address] [facility] Main Bldg, 9th [place] [address] Dalia Weiner, CANTEEN OPERATOR Non-small cell carcinoma of lung, TNM stage 4 <Unspecified side> (Primary Dx) 11/02/2022 9:30 AM CDT Ancillary Procedure CT Imaging 12[address] [facility], 7th [place] [address] Dalia Weiner, CANTEEN OPERATOR Non-small cell carcinoma of lung, TNM stage 4 <Unspecified side> 10/31/2022 [facility] Thoracic Center - Medical Oncology [facility]5 [facility] Main dg, 9th [place] [address] Dalia Weiner, CANTEEN OPERATOR Non-small cell carcinoma of lung, TNM stage 4 <Unspecified side> (Primary Dx) 10/30/2022 10:45 AM CDT - 10/30/2022 11:59 PM CDT Hospital Encounter Diagnostic Laboratory Center [facility]5 [facility] Main [facility], [place] [address] Dalia Weiner, SUSANA Non-small cell carcinoma of lung, TNM stage 4 <Unspecified side> Discharge Disposition: Home 10/30/2022 [facility] Thor[facility] [place] - Medical Oncology [address] [facility] Main [facility], 9th [place] [address] Kassi Foster MA 10/05/2022 11:45 AM CDT - 10/05/2022 11:59 PM CDT Hospital Encounter Radiation Treatment Center [facility]5 [facility], 1st [place] [address] Lois Willingham MD Secondary malignant neoplasm of brain Discharge Disposition: Home 10/04/2022 3:13 PM CDT Anesthesia Event Diagnostic Imaging Center [facility]5 [facility] Main [facility], 3rd [place] [address] Maia Aguilar MD 10/04/2022 1:15 PM CDT - 10/04/2022 11:59 PM CDT Hospital Encounter Diagnostic Imaging Center [facility]5 [facility] Main [facility], 3rd [place] [address] Sindi Casiano MD Arunkumar, Radha, MD Secondary malignant neoplasm of brain Discharge Disposition: Home 10/03/2022 11:59 PM CDT Anesthesia Event Perioperative Evaluation and Management Center [address] [facility], 6th [place] [address] Yamilet Gibson RN 10/03/2022 4:30 PM CDT POEM Appointments Perioperative Evaluation and Management Center 15[address] [facility], 6th [place] [address] Sindi Casiano MD 10/02/2022 Orders Only Thoracic Center - Medical Oncology [facility]5 [facility], 9th [place] [address] Dalia Weiner APRN Hypokalemia (Primary Dx) 09/14/2022 Orders Only Interventional Radiology [address] [place] [address], 4th [place] [address] Randa Méndez PA 09/12/2022 Orders Only Neuroradiology [address] [place] [address] Otf Chavez MD 09/12/2022 Orders Only Radiation Treatment Center [address] [place] [address], 1st [place] [address] Vicky Denise APRN Secondary malignant neoplasm of brain (Primary Dx) 09/06/2022 1:00 PM CDT - 09/06/2022 11:59 PM CDT Hospital Encounter Interventional Radiology 12[address] [facility], 4th [place] [address] Sindi Casiano MD Patel, Rakhi J PA Subdural hematoma <Subsequent> (Primary Dx); Follow-up 1 month Discharge Disposition: Home 09/06/2022 6:35 AM CDT Ancillary Procedure CT Imaging 12[address] [facility], 7th [place] [address] Talia Rogel PA 09/06/2022 Telephone Thoracic Center - Medical Oncology [facility] Main Bldg, 9th [place] [address] Tamiko Umana RN 09/06/2022 Travel 08/25/2022 Orders Only [facility] - Medical Oncology [address] [place] [address] Main dg, 9th [place] [address] Dalia Weiner APRN Non-small cell carcinoma of lung, TNM stage 4 <Unspecified side> (Primary Dx) 08/22/2022 11:00 AM CDT Follow-Up [facility] - Medical Oncology [address] [place] [address] Main [facility], 9th [place] [address] Sindi Casiano MD Non-small cell carcinoma of lung, TNM stage 4 <Unspecified side> 08/22/2022 Travel 08/21/2022 5:31 PM CDT - 08/21/2022 11:59 PM CDT Hospital Encounter Main CT IMAGING [address] [place] [address] Main [facility], 3rd [place] [address] Dalia Weiner APRN Non-small cell carcinoma of lung, TNM stage 4 <Unspecified side> Discharge Disposition: Home 08/21/2022 4:45 PM CDT - 08/21/2022 5:30 PM CDT Hospital Encounter Diagnostic Laboratory Center [address] [place] [address] Main [facility], [place] [address] Dalia Weiner APRN Non-small cell carcinoma of lung, TNM stage 4 <Unspecified side> Discharge Disposition: Home 08/21/2022 Travel after 08/13/2022 Immunizations Name Administration Dates Next Due Pfizer SARS-CoV-2 Vaccination (Purple Cap) 11/06 Surgical History Surgery Date Site/Laterality Comments THYROID SURGERY 07/14/2016 was planned for partial thyroidectomy which was aborted d/t positive LN UTERINE FIBROID EMBOLIZATION GALLBLADDER SURGERY LAPAROSCOPIC GASTRIC BANDING TUBAL LIGATION [place] EGD TRANSORAL BIOPSY SINGLE/MULTIPLE 05/31/2019 Esophagus/N/A Procedure: UPPER GASTROINTESTINAL ENDOSCOPY OF ESOPHAGUS, STOMACH, AND DUODENUM WITH BIOPSY; Surgeon: Haile Whittaker MD; Location: MAIN ENDOSCOPY; Service: GASTROENTEROLOGY [place] [facility] TREPHINE BONE FLP BRAIN TUMOR SUPRTENTOR 02/10/2020 Head/Left Procedure: LEFT TEMPORAL CRANIOTOMY FOR EXCISION OF BRAIN TUMOR; Surgeon: Frannie Emery MD; Location: MAIN OR; Service: NEUROSURGERY Medical devices from this surgery are in the Medical Devices section. VT COLONOSCOPY FLX DX W/COLLJ SPEC WHEN PFRMD 09/28/2021 N/A Procedure: DIAGNOSTIC FLEXIBLE COLONOSCOPY PROXIMAL TO SPLENIC FLEXURE; Surgeon: Annette Kang MD; Location: MAIN ENDOSCOPY; Service: GASTROENTEROLOGY; The EGD and colonoscopy showed minimal inflammation in the stomach/duodenum, but lymphocytic colitis on biopsy, which could certainly explain her symptoms of diarrhea. VT TCAT PERMANENT OCCLUSION/EMBOLIZATION PRQ TEAM LEADER SURGERY 06/09/2022 Bilateral Procedure: IR EMBOLIZATION TEAM LEADER SURGERY (INTRACRANIAL); Surgeon: Haim Mckeon MD; Location: MAIN OR; Service: INTERVENTIONAL RADIOLOGY VT STERETCTC RADIATION TX MANAGEMENT CRANIAL LESION 04/11/2023 - 04/12/2023 N/A Procedure: 4 STAR - STEREOTACTIC RADIATION TX MANAGEMENT,CRANIAL LESION; Surgeon: Bree Calderón MD; Location: MAIN GAMMA KNIFE; Service: RADIATION ONCOLOGY Medical History Medical History Date Comments Thyroid nodule Non-small cell lung cancer Gastro-esophageal reflux disease without esophag itis 05/21/2019 Nausea with vomiting 12/03/2020 Seizure 06/30/2023 Diarrhea 07/19/2023 Social History Tobacco Use Types Packs/Day Years Used Date Smoking Tobacco: Never Smokeless Tobacco: Never Tobacco Cessation:Counseling Given: Not Answered Comments:pt reports she smoked rarely in the past Alcohol Use Standard Drinks/Week Comments Never 0 (1 standard drink = 0.6 oz pur e alcohol) OCCASIONAL DRINKER Sex and Gender Information Value Date Recorded Sex Assigned at Female 07/28/2019 6:30 PM CDT Gender Identity Female 07/28/2019 6:30 PM CDT Sexual Orientation Straight 11/05/2019 2: 34 PM CDT Job Start Date Occupation Industry Not on file Not on file Not on file Obstetrics History Last Filed Vital Signs Vital Sign Reading Time Taken Comments Blood Pressure 97/59 08/11/2023 7:52 AM CDT Pulse 76 08/11/2023 7:52 AM CDT Temperature 36.6 C (97.9 F) 08/11/2023 7:52 AM CD T Respiratory Rate 16 08/11/2023 7:52 AM CDT Oxygen Saturation 100% 08/11/2023 7:52 AM CDT Inhaled Oxygen Concentration - - Weight 79.1 kg (174 lb 6.1 oz) 08/08/2023 8:20 P M CDT Height 157.5 cm (5' 2") 08/08/2023 8:20 PM CDT Body Mass Index 31.9 08/08/2023 8:20 PM CDT Plan of Treatment Upcoming Encounters Date Type Department Care Team (Late st Contact Info) Description 09/03/2023 6:15 AM CDT Appointment [facility] [address] [place] [address], 3rd [place] [address] Saira Carrasquillo APRN [address] [place] [phone] 09/03/2023 3:00 PM CDT Appointment [facility] [address] [place] [address], 1st [place] [address] Bree Calderón MD [address] [place] [phone] 09/04/2023 9:00 AM CDT [facility] [address] [place] [address], 7th [place] [address] Carl Gutierrez MD [address] [place] [phone] 09/04/2023 11:30 AM CDT [facility]icine [facility] [address] [place] [address], 7th [place] [address] Frannie Emery MD [address] [place] [id number] 10/18/2023 9:00 AM CDT [facility]icine [facility] - Gastroenterology, Hepatology & Nutrition [address] [place], [place] [address], 7th [place] [address] Ada Mounika N, CANTEEN OPERATOR [address] [place] [address] 10/18/2023 12:30 PM CDT Office Visit [facility] [address] [facility], 7th [place] [address] Suzi Dias DO [address] [place] [address] Health Maintenance Due Date Last Done Comments COVID-19 Vaccine (2 - Pfizer risk series) 11/27/2020 11/06/2020 Influenza Vaccine 11/18/2023 Medical Devices Implanted Type Area Machine Filler Device Identifier Shelf Expiration Date Model / Serial / Lot Lap Band Implant Stomach [employer] [id number] / [id number] / Description:Lap band--[facility]--2010--Dr. Edward Reed--[phone] Allergan Lap-Band--Conditional 5 up to 3T per [employer] Hc Cover, Matrix Neuro Ulp [place], Ti, 17mm - [id number] Implanted:Qty: 2 on 02/10/2020 by Frannie Emery MD at [facility] Implant Left: Cranial Yodo1 [facility] 04.502.0 23 / / Plate, Matix, Neuro, Ulp Ti, Box, 11aen36iv - [id number] Implanted:Qty: 1 on 02/10/2020 by Frannie Emery MD at [facility] Implant Left: Cranial Yodo1 [place] 04.502.0 65 / / Screw Matrixneuro 4mm Self Drilling Pkg 1 - [id number] Implanted:Qty: 13 on 02/10/2020 by Frannie Emery MD at [facility] Metalware Left: Cranial Yodo1 [facility] 04.503.1 04.01 / / [place] Crani 17mm Low Profile - [id number] Implanted:Qty: 1 on 02/10/2020 by Frannie Emery MD at [facility] Metalware Left: Cranial SYNTHES [facility] 04.503.0 23 / / Sealant Duraseal 5ml - [id number] Implanted:Qty: 1 on 02/10/2020 by Frannie Emery MD at [facility] Skin/Tissue Left: Cranial COVIDIEN 12/16/2020- [id number] Procedures Procedure Name Priority Date/Time Associated Diagnosis Comments DIFFERENTIAL Routine 08/11/2023 5:02 AM CDT .CBC Routine 08/11/2023 5:02 AM CDT PHOSPHORUS LEVEL Routine 08/11/2023 5:02 AM CDT MAGNESIUM LEVEL Routine 08/11/2023 5:02 AM CDT BASIC METABOLIC PANEL, CALCIUM TOTAL Routine 08/11/2023 5:02 AM CDT COMPLETE BLOOD COUNT W/ DIFFERENTIAL Routine 08/11/2023 5:02 AM CDT .CBC Routine 08/10/2023 5:09 AM CDT PHOSPHORUS LEVEL Routine 08/10/2023 5:09 AM CDT MAGNESIUM LEVEL Routine 08/10/2023 5:09 AM CDT BASIC METABOLIC PANEL, CALCIUM TOTAL Routine 08/10/2023 5:09 AM CDT COMPLETE BLOOD COUNT W/ DIFFERENTIAL Routine 08/10/2023 5:09 AM CDT DIFFERENTIAL Routine 08/09/2023 5:41 AM CDT .CBC Routine 08/09/2023 5:41 AM CDT COMPLETE BLOOD COUNT W/ DIFFERENTIAL Routine 08/09/2023 5:41 AM CDT PHOSPHORUS LEVEL Routine 08/09/2023 5:40 AM CDT MAGNESIUM LEVEL Routine 08/09/2023 5:40 AM CDT BASIC METABOLIC PANEL, CALCIUM TOTAL Routine 08/09/2023 5:40 AM CDT MRI BRAIN W WO CONTRAST STAT 08/08/19 11:19 AM CDT .CBC Routine 08/08/2023 3:44 AM CDT PHOSPHORUS LEVEL Routine 08/08/2023 3:44 AM CDT MAGNESIUM LEVEL Routine 08/08/2023 3:44 AM CDT BASIC METABOLIC PANEL, CALCIUM TOTAL Routine 08/08/2023 3:44 AM CDT COMPLETE BLOOD COUNT W/ DIFFERENTIAL Routine 08/08/2023 3:44 AM CDT .CBC Routine 08/07/2023 6:37 AM CDT PHOSPHORUS LEVEL Routine 08/07/2023 6:37 AM CDT MAGNESIUM LEVEL Routine 08/07/2023 6:37 AM CDT BASIC METABOLIC PANEL, CALCIUM TOTAL Routine 08/07/2023 6:37 AM CDT COMPLETE BLOOD COUNT W/ DIFFERENTIAL Routine 08/07/2023 6:37 AM CDT .CBC Routine 08/06/2023 7:27 AM CDT PHOSPHORUS LEVEL Routine 08/06/2023 7:27 AM CDT MAGNESIUM LEVEL Routine 08/06/2023 7:27 AM CDT BASIC METABOLIC PANEL, CALCIUM TOTAL Routine 08/06/2023 7:27 AM CDT COMPLETE BLOOD COUNT W/ DIFFERENTIAL Routine 08/06/2023 7:27 AM CDT .CBC Routine 08/05/2023 7:23 AM CDT PHOSPHORUS LEVEL Routine 08/05/2023 7:23 AM CDT MAGNESIUM LEVEL Routine 08/05/2023 7:23 AM CDT BASIC METABOLIC PANEL, CALCIUM TOTAL Routine 08/05/2023 7:23 AM CDT COMPLETE BLOOD COUNT W/ DIFFERENTIAL Routine 08/05/2023 7:23 AM CDT GASTROINTESTINAL MULTIPLEX PCR PANEL Routine 08/04/2023 3:24 PM CDT C. DIFFICILE DNA DETECTION Routine 08/04/2023 3:24 PM CDT MAGNESIUM LEVEL Add-On 08/04/2023 4:19 AM CDT HEPATIC FUNCTION PANEL Add-On 4:19 AM CDT HC PROCALCITONIN (PCT) Add-On 4:19 AM CDT .CBC Routine 08/04/2023 4:19 AM CDT PHOSPHORUS LEVEL Routine 08/04/2023 4:19 AM CDT BASIC METABOLIC PANEL, CALCIUM TOTAL Routine 08/04/2023 4:19 AM CDT COMPLETE BLOOD COUNT W/ DIFFERENTIAL Routine 08/04/2023 4:19 AM CDT XR CHEST 1 VW Routine 08/03/2023 11:10 AM CDT RESPIRATORY MULTIPLEX PCR PANEL, NASOPHARYNGEAL SWAB Routine 08/03/2023 11:06 AM CDT .CBC Routine 08/03/2023 5:11 AM CDT PHOSPHORUS LEVEL Routine 08/03/2023 5:11 AM CDT MAGNESIUM LEVEL Routine 08/03/2023 5:11 AM CDT BASIC METABOLIC PANEL, CALCIUM TOTAL Routine 08/03/2023 5:11 AM CDT COMPLETE BLOOD COUNT W/ DIFFERENTIAL Routine 08/03/2023 5:11 AM CDT UA W/ CX Routine 08/02/2023 5:30 PM CDT URINALYSI W/REFLEX CULTURE Routine 08/02/2023 5:30 PM CDT URINE CULTURE Routine 08/02/2023 5:30 PM CDT BLOOD CULTURE Routine 08/02/2023 12:22 PM CDT .CBC Routine 08/02/2023 5:52 AM CDT BASIC METABOLIC PANEL, CALCIUM TOTAL Routine 08/02/2023 5:52 AM CDT COMPLETE BLOOD COUNT W/ DIFFERENTIAL Routine 08/02/2023 5:52 AM CDT EEG STAT 08/01/2023 8:54 PM CDT POC GLUCOSE SCREEN Routine 08/01/2023 2: 36 PM CDT .CBC Routine 08/01/2023 3:50 AM CDT BASIC METABOLIC PANEL, CALCIUM TOTAL Routine 08/01/2023 3:50 AM CDT COMPLETE BLOOD COUNT W/ DIFFERENTIAL Routine 08/01/2023 3:50 AM CDT POC GLUCOSE SCREEN Routine 07/31/2023 8: 45 PM CDT POC GLUCOSE SCREEN Routine 07/31/2023 10 :06 AM CDT .CBC Routine 07/31/2023 8:03 AM CDT PHOSPHORUS LEVEL Routine 07/31/2023 8:03 AM CDT MAGNESIUM LEVEL Routine 07/31/2023 8:03 AM CDT BASIC METABOLIC PANEL, CALCIUM TOTAL Routine 07/31/2023 8:03 AM CDT COMPLETE BLOOD COUNT W/ DIFFERENTIAL Routine 07/31/2023 8:03 AM CDT EKG, 12-LEAD (PORTABLE) STAT 07/31/2023 TROPONIN T Routine 07/30/2023 11:52 PM CDT URINALYSIS MICROSCOPIC EXAM Routine 07/30/2023 11:12 PM CDT URINALYSIS WITH MICROSCOPIC IF INDICATED Routine 07/30/2023 11:12 PM CDT URINE CULTURE Routine 07/30/2023 11:[address] HEAD WO CONTRAST STAT 07/30/2023 1 0:04 PM CDT XR CHEST 1 VW Routine 07/30/2023 9:46 PM CDT POC VENOUS BLOOD GAS + LACTATE Routine 07/30/2023 9:03 PM CDT .CBC Routine 07/30/2023 8:55 PM CDT CARDIAC PANEL Routine 07/30/2023 8:55 PM CDT HC PROCALCITONIN (PCT) Routine 8:55 PM CDT LACTATE DEHYDROGENASE Routine 07/30/2023 8:55 PM CDT FRACTIONATED BILIRUBIN Routine 8:55 PM CDT APTT Routine 07/30/2023 8:55 PM CDT PROTHROMBIN TIME Routine 07/30/2023 8:55 PM CDT PHOSPHORUS LEVEL Routine 07/30/2023 8:55 PM CDT MAGNESIUM LEVEL Routine 07/30/2023 8:55 PM CDT COMPREHENSIVE METABOLIC PANEL Routine 07/30/2023 8:55 PM CDT COMPLETE BLOOD COUNT W/ DIFFERENTIAL Routine 07/30/2023 8:55 PM CDT AMMONIA LEVEL Routine 07/30/2023 8:55 PM CDT BLOOD CULTURE Routine 07/30/2023 8:55 PM CDT POC GLUCOSE SCREEN Routine 07/30/2023 8: 31 PM CDT DIFFERENTIAL Routine 07/29/2023 10:01 AM CDT .CBC Routine 07/29/2023 10:01 AM CDT COMPREHENSIVE METABOLIC PANEL Routine 07/29/2023 10:01 AM CDT PHOSPHORUS LEVEL Routine 07/29/2023 10:0 1 AM CDT MAGNESIUM LEVEL Routine 07/29/2023 10:01 AM CDT COMPLETE BLOOD COUNT W/ DIFFERENTIAL Routine 07/29/2023 10:01 AM CDT MAGNESIUM LEVEL Routine 07/28/2023 7:10 PM CDT POTASSIUM LEVEL Routine 07/28/2023 7:10 PM CDT .CBC Routine 07/28/2023 7:28 AM CDT COMPREHENSIVE METABOLIC PANEL Routine 07/28/2023 7:28 AM CDT PHOSPHORUS LEVEL Routine 07/28/2023 7:28 AM CDT MAGNESIUM LEVEL Routine 07/28/2023 7:28 AM CDT COMPLETE BLOOD COUNT W/ DIFFERENTIAL Routine 07/28/2023 7:28 AM CDT BLOOD GAS VENOUS Routine 07/27/2023 10:2 9 AM CDT .CBC Routine 07/27/2023 2:06 AM CDT COMPREHENSIVE METABOLIC PANEL Routine 07/27/2023 2:06 AM CDT PHOSPHORUS LEVEL Routine 07/27/2023 2:06 AM CDT MAGNESIUM LEVEL Routine 07/27/2023 2:06 AM CDT COMPLETE BLOOD COUNT W/ DIFFERENTIAL Routine 07/27/2023 2:06 AM CDT .CBC Routine 07/26/2023 6:32 AM CDT COMPREHENSIVE METABOLIC PANEL Routine 07/26/2023 6:32 AM CDT PHOSPHORUS LEVEL Routine 07/26/2023 6:32 AM CDT MAGNESIUM LEVEL Routine 07/26/2023 6:32 AM CDT COMPLETE BLOOD COUNT W/ DIFFERENTIAL Routine 07/26/2023 6:32 AM CDT LACTOFERRIN DETECTION Routine 07/25/2023 10:28 PM CDT GASTROINTESTINAL MULTIPLEX PCR PANEL Routine 07/25/2023 10:28 PM CDT C. DIFFICILE DNA DETECTION Routine 07/25/2023 10:28 PM CDT CALPROTECTIN, STOOL Routine 07/25/2023 1 0:21 PM CDT BLOOD CULTURE Routine 07/25/2023 6:04 AM CDT HEPATIC FUNCTION PANEL Add-On 6:03 AM CDT DIFFERENTIAL Routine 07/25/2023 6:03 AM CDT .CBC Routine 07/25/2023 6:03 AM CDT PHOSPHORUS LEVEL Routine 07/25/2023 6:03 AM CDT MAGNESIUM LEVEL Routine 07/25/2023 6:03 AM CDT BASIC METABOLIC PANEL, CALCIUM TOTAL Routine 07/25/2023 6:03 AM CDT COMPLETE BLOOD COUNT W/ DIFFERENTIAL Routine 07/25/2023 6:03 AM CDT URINALYSIS MICROSCOPIC EXAM Routine 07/25/2023 3:23 AM CDT URINALYSIS WITH MICROSCOPIC IF INDICATED Routine 07/25/2023 3:23 AM CDT URINE CULTURE Routine 07/25/2023 3:23 AM CDT .CBC Routine 07/24/2023 9:10 PM CDT APTT Routine 07/24/2023 9:10 PM CDT PROTHROMBIN TIME Routine 07/24/2023 9:10 PM CDT PHOSPHORUS LEVEL Routine 07/24/2023 9:10 PM CDT MAGNESIUM LEVEL Routine 07/24/2023 9:10 PM CDT COMPREHENSIVE METABOLIC PANEL Routine 07/24/2023 9:10 PM CDT COMPLETE BLOOD COUNT W/ DIFFERENTIAL Routine 07/24/2023 9:[address] HEAD WO CONTRAST STAT 07/24/2023 9 :01 PM CDT POC GLUCOSE SCREEN Routine 07/24/2023 8: [address] CHEST ABDOMEN PELVIS W CONTRAST Routine 07/23/2023 12:02 PM CDT Non-small cell carcinoma of lung, TNM stage 4 <Unspecified side> .CBC Routine 07/23/2023 9:47 AM CDT Non-small cell carcinoma of lung, TNM stage 4 <Unspecified side> CREATINE KINASE Routine 07/23/2023 9:47 AM CDT Non-small cell carcinoma of lung, TNM stage 4 <Unspecified side> COMPREHENSIVE METABOLIC PANEL Routine 07/23/2023 9:47 AM CDT Non-small cell carcinoma of lung, TNM stage 4 <Unspecified side> COMPLETE BLOOD COUNT W/ DIFFERENTIAL Routine 07/23/2023 9:47 AM CDT Non-small cell carcinoma of lung, TNM stage 4 <Unspecified side> .CBC Routine 07/07/2023 5:46 AM CDT COMPREHENSIVE METABOLIC PANEL Routine 07/07/2023 5:46 AM CDT PHOSPHORUS LEVEL Routine 07/07/2023 5:46 AM CDT MAGNESIUM LEVEL Routine 07/07/2023 5:46 AM CDT COMPLETE BLOOD COUNT W/ DIFFERENTIAL Routine 07/07/2023 5:46 AM CDT C. DIFFICILE DNA DETECTION Routine 07/06/2023 8:02 PM CDT GASTROINTESTINAL MULTIPLEX PCR PANEL Routine 07/06/2023 8:02 PM CDT .CBC Routine 07/06/2023 6:03 AM CDT COMPREHENSIVE METABOLIC PANEL Routine 07/06/2023 6:03 AM CDT PHOSPHORUS LEVEL Routine 07/06/2023 6:03 AM CDT MAGNESIUM LEVEL Routine 07/06/2023 6:03 AM CDT COMPLETE BLOOD COUNT W/ DIFFERENTIAL Routine 07/06/2023 6:03 AM CDT COMPREHENSIVE METABOLIC PANEL Routine 07/05/2023 5:52 AM CDT PHOSPHORUS LEVEL Routine 07/05/2023 5:52 AM CDT MAGNESIUM LEVEL Routine 07/05/2023 5:52 AM CDT HEMOGLOBIN A1C Add-On 07/05/2023 5:51 AM CDT .CBC Routine 07/05/2023 5:51 AM CDT COMPLETE BLOOD COUNT W/ DIFFERENTIAL Routine 07/05/2023 5:51 AM CDT EEG Routine 07/04/2023 7:57 PM CDT URINALYSIS MICROSCOPIC EXAM Routine 07/04/2023 4:24 PM CDT URINALYSIS WITH MICROSCOPIC IF INDICATED Routine 07/04/2023 4:24 PM CDT URINE CULTURE Routine 07/04/2023 4:24 PM CDT DIFFERENTIAL Routine 07/04/2023 8:09 AM CDT .CBC Routine 07/04/2023 8:09 AM CDT COMPREHENSIVE METABOLIC PANEL Routine 07/04/2023 8:09 AM CDT PHOSPHORUS LEVEL Routine 07/04/2023 8:09 AM CDT COMPLETE BLOOD COUNT W/ DIFFERENTIAL Routine 07/04/2023 8:09 AM CDT EKG, 12-LEAD (PORTABLE) Routine 07/04/2023 BLOOD CULTURE Routine 07/03/2023 7:35 PM CDT HISTORICAL ABORH Routine 07/03/2023 6:54 PM CDT URINALYSIS MICROSCOPIC EXAM Routine 07/03/2023 6:38 PM CDT URINALYSIS WITH MICROSCOPIC IF INDICATED Routine 07/03/2023 6:38 PM CDT CALPROTECTIN, STOOL Add-On 07/03/2023 5 :11 PM CDT LACTOFERRIN DETECTION Add-On 07/03/2023 5:11 PM CDT C. DIFFICILE DNA DETECTION Routine 07/03/2023 5:[address] HEAD WO CONTRAST STAT 07/03/2023 4 :09 PM CDT POC VENOUS BLOOD GAS + LACTATE Routine 07/03/2023 3:52 PM CDT CKMB Add-On 07/03/2023 3:34 PM CDT CREATINE KINASE Add-On 07/03/2023 3:34 PM CDT PHOSPHORUS LEVEL Routine 07/03/2023 3:34 PM CDT MAGNESIUM LEVEL Routine 07/03/2023 3:34 PM CDT COMPREHENSIVE METABOLIC PANEL Routine 07/03/2023 3:34 PM CDT TYPE AND SCREEN Routine 07/03/2023 3:34 PM CDT POC GLUCOSE SCREEN Routine 07/03/2023 3: 33 PM CDT .CBC Routine 07/03/2023 3:33 PM CDT COMPLETE BLOOD COUNT W/ DIFFERENTIAL Routine 07/03/2023 3:33 PM CDT .CBC Routine 07/01/2023 3:38 AM CDT COMPLETE BLOOD COUNT W/ DIFFERENTIAL Routine 07/01/2023 3:38 AM CDT PHOSPHORUS LEVEL Routine 07/01/2023 3:38 AM CDT MAGNESIUM LEVEL Routine 07/01/2023 3:38 AM CDT BASIC METABOLIC PANEL, CALCIUM TOTAL Routine 07/01/2023 3:38 AM CDT TRANSFERRIN Add-On 06/30/2023 4:26 AM CDT FERRITIN Add-On 06/30/2023 4:26 AM CDT IRON LEVEL Add-On 06/30/2023 4:26 AM CDT .CBC Routine 06/30/2023 4:26 AM CDT COMPLETE BLOOD COUNT W/ DIFFERENTIAL Routine 06/30/2023 4:26 AM CDT PHOSPHORUS LEVEL Routine 06/30/2023 4:26 AM CDT MAGNESIUM LEVEL Routine 06/30/2023 4:26 AM CDT BASIC METABOLIC PANEL, CALCIUM TOTAL Routine 06/30/2023 4:26 AM CDT MRI BRAIN W WO CONTRAST STAT 06/29/19 3:10 PM CDT .CBC Routine 06/29/2023 2:24 AM CDT COMPLETE BLOOD COUNT W/ DIFFERENTIAL Routine 06/29/2023 2:24 AM CDT PHOSPHORUS LEVEL Routine 06/29/2023 2:24 AM CDT MAGNESIUM LEVEL Routine 06/29/2023 2:24 AM CDT BASIC METABOLIC PANEL, CALCIUM TOTAL Routine 06/29/2023 2:24 AM CDT .CBC Routine 06/28/2023 3:07 AM CDT COMPLETE BLOOD COUNT W/ DIFFERENTIAL Routine 06/28/2023 3:07 AM CDT PHOSPHORUS LEVEL Routine 06/28/2023 3:07 AM CDT MAGNESIUM LEVEL Routine 06/28/2023 3:07 AM CDT BASIC METABOLIC PANEL, CALCIUM TOTAL Routine 06/28/2023 3:07 AM CDT EKG, 12-LEAD (PORTABLE) STAT 06/28/2023 POC GLUCOSE SCREEN Routine 06/27/2023 6: 44 PM CDT URINALYSIS MICROSCOPIC EXAM Routine 06/27/2023 6:43 PM CDT URINALYSIS WITH MICROSCOPIC IF INDICATED Routine 06/27/2023 6:43 PM CDT URINE CULTURE Routine 06/27/2023 6:[address] HEAD WO CONTRAST Routine 06/27/2023 6 :41 PM CDT POC VENOUS BLOOD GAS + LACTATE Routine 06/27/2023 6:25 PM CDT XR CHEST 1 VW Routine 06/27/2023 6:01 PM CDT .CBC Routine 06/27/2023 5:59 PM CDT HC PROCALCITONIN (PCT) Routine 5:59 PM CDT SEDIMENTATION RATE NON-AUTOMATED Routine 06/27/2023 5:59 PM CDT C REACTIVE PROTEIN Routine 06/27/2023 5: 59 PM CDT LACTIC ACID, VENOUS STAT 06/27/2023 5 :59 PM CDT AMMONIA LEVEL Routine 06/27/2023 5:59 PM CDT LACTATE DEHYDROGENASE Routine 06/27/2023 5:59 PM CDT FRACTIONATED BILIRUBIN Routine 5:59 PM CDT PHOSPHORUS LEVEL Routine 06/27/2023 5:59 PM CDT MAGNESIUM LEVEL Routine 06/27/2023 5:59 PM CDT COMPREHENSIVE METABOLIC PANEL Routine 06/27/2023 5:59 PM CDT COMPLETE BLOOD COUNT W/ DIFFERENTIAL Routine 06/27/2023 5:59 PM CDT BLOOD CULTURE Routine 06/27/2023 5:59 PM CDT MRI BRAIN W WO CONTRAST Routine 06/04/19 24 12:48 PM CDT Secondary malignant neoplasm of brain LIPID PANEL Routine 04/18/2023 2:50 PM HOT BRAIDER Malignant neoplasm of unspecified part of unspecified bronchus or lung MAGNESIUM LEVEL Routine 04/18/2023 2:50 PM HOT BRAIDER Malignant neoplasm of unspecified part of unspecified bronchus or lung CREATINE KINASE Routine 04/18/2023 2:50 PM HOT BRAIDER Malignant neoplasm of unspecified part of unspecified bronchus or lung COMPREHENSIVE METABOLIC PANEL Routine 04/18/2023 2:50 PM HOT BRAIDER Malignant neoplasm of unspecified part of unspecified bronchus or lung CT CHEST ABDOMEN PELVIS W CONTRAST Routine 04/16/2023 5:20 PM HOT BRAIDER Non-small cell carcinoma of lung, TNM stage 4 <Unspecified side> POC CREATININE Routine 04/16/2023 4:39 PM HOT BRAIDER [facility] RADIATION TX MANAGEMENT CRANIAL LESION 04/11/2023 8:03 AM HOT BRAIDER Secondary malignant neoplasm of brain .CBC Routine 04/09/2023 10:59 AM HOT BRAIDER Secondary malignant neoplasm of brain COMPLETE BLOOD COUNT W/ DIFFERENTIAL Routine 04/09/2023 10:59 AM HOT BRAIDER Secondary malignant neoplasm of brain MRI BRAIN WITH AND WITHOUT CONTRAST - FRAMELESS GAMMA KNIFE Routine 04/09/2023 8:55 AM HOT BRAIDER Secondary malignant neoplasm of brain MRI BRAIN W WO CONTRAST - ABTI Routine 02/14/2023 11:23 AM HOT BRAIDER Secondary malignant neoplasm of brain POC CREATININE Routine 02/14/2023 9:[address] CHEST ABDOMEN PELVIS W CONTRAST Routine 01/17/2023 10:16 AM CDT Non-small cell carcinoma of lung, TNM stage 4 <Unspecified side> .CBC Routine 01/17/2023 7:47 AM CDT Non-small cell carcinoma of lung, TNM stage 4 <Unspecified side> COMPREHENSIVE METABOLIC PANEL Routine 01/17/2023 7:47 AM CDT Non-small cell carcinoma of lung, TNM stage 4 <Unspecified side> COMPLETE BLOOD COUNT W/ DIFFERENTIAL Routine 01/17/2023 7:47 AM CDT Non-small cell carcinoma of lung, TNM stage 4 <Unspecified side> MRI BRAIN W WO CONTRAST Routine 01/06/20 10:43 AM CDT Secondary malignant neoplasm of brain FRACTIONATED BILIRUBIN Routine 10:34 AM CDT Non-small cell carcinoma of lung, TNM stage 4 <Unspecified side> TOTAL PROTEIN Routine 11/29/2022 10:34 AM CDT Non-small cell carcinoma of lung, TNM stage 4 <Unspecified side> ASPARTATE AMINOTRANSFERASE Routine 11/29/2022 10:34 AM CDT Non-small cell carcinoma of lung, TNM stage 4 <Unspecified side> ALANINE AMINOTRANSFERASE Routine 023 10:34 AM CDT Non-small cell carcinoma of lung, TNM stage 4 <Unspecified side> ALKALINE PHOSPHATASE Routine 11/29/2022 10:34 AM CDT Non-small cell carcinoma of lung, TNM stage 4 <Unspecified side> ALBUMIN LEVEL Routine 11/29/2022 10:34 AM CDT Non-small cell carcinoma of lung, TNM stage 4 <Unspecified side> CALCIUM LEVEL Routine 11/29/2022 10:34 AM CDT Non-small cell carcinoma of lung, TNM stage 4 <Unspecified side> .GLOMERULAR FILTRATION RATE Routine 11/29/2022 10:34 AM CDT Non-small cell carcinoma of lung, TNM stage 4 <Unspecified side> SERUM CREATININE Routine 11/29/2022 10:3 4 AM CDT Non-small cell carcinoma of lung, TNM stage 4 <Unspecified side> ELECTROLYTE PANEL Routine 11/29/2022 10: 34 AM CDT Non-small cell carcinoma of lung, TNM stage 4 <Unspecified side> BLOOD UREA NITROGEN Routine 11/29/2022 1 0:34 AM CDT Non-small cell carcinoma of lung, TNM stage 4 <Unspecified side> GLUCOSE LEVEL Routine 11/29/2022 10:34 AM CDT Non-small cell carcinoma of lung, TNM stage 4 <Unspecified side> PHOSPHORUS LEVEL Routine 11/29/2022 10:3 4 AM CDT Non-small cell carcinoma of lung, TNM stage 4 <Unspecified side> COMPREHENSIVE METABOLIC PANEL Routine 11/29/2022 10:34 AM CDT Non-small cell carcinoma of lung, TNM stage 4 <Unspecified side> CT HEAD WO CONTRAST Routine 11/29/2022 6 :[address] CHEST ABDOMEN PELVIS W CONTRAST Routine 11/02/2022 12:53 PM CDT Non-small cell carcinoma of lung, TNM stage 4 <Unspecified side> FRACTIONATED BILIRUBIN Routine 11:19 AM CDT Non-small cell carcinoma of lung, TNM stage 4 <Unspecified side> TOTAL PROTEIN Routine 10/30/2022 11:19 AM CDT Non-small cell carcinoma of lung, TNM stage 4 <Unspecified side> ASPARTATE AMINOTRANSFERASE Routine 10/30/2022 11:19 AM CDT Non-small cell carcinoma of lung, TNM stage 4 <Unspecified side> ALANINE AMINOTRANSFERASE Routine 023 11:19 AM CDT Non-small cell carcinoma of lung, TNM stage 4 <Unspecified side> ALKALINE PHOSPHATASE Routine 10/30/2022 11:19 AM CDT Non-small cell carcinoma of lung, TNM stage 4 <Unspecified side> ALBUMIN LEVEL Routine 10/30/2022 11:19 AM CDT Non-small cell carcinoma of lung, TNM stage 4 <Unspecified side> CALCIUM LEVEL Routine 10/30/2022 11:19 AM CDT Non-small cell carcinoma of lung, TNM stage 4 <Unspecified side> .GLOMERULAR FILTRATION RATE Routine 10/30/2022 11:19 AM CDT Non-small cell carcinoma of lung, TNM stage 4 <Unspecified side> SERUM CREATININE Routine 10/30/2022 11:1 9 AM CDT Non-small cell carcinoma of lung, TNM stage 4 <Unspecified side> ELECTROLYTE PANEL Routine 10/30/2022 11: 19 AM CDT Non-small cell carcinoma of lung, TNM stage 4 <Unspecified side> BLOOD UREA NITROGEN Routine 10/30/2022 1 1:19 AM CDT Non-small cell carcinoma of lung, TNM stage 4 <Unspecified side> GLUCOSE LEVEL Routine 10/30/2022 11:19 AM CDT Non-small cell carcinoma of lung, TNM stage 4 <Unspecified side> DIFFERENTIAL Routine 10/30/2022 11:19 AM CDT Non-small cell carcinoma of lung, TNM stage 4 <Unspecified side> .CBC Routine 10/30/2022 11:19 AM CDT Non-small cell carcinoma of lung, TNM stage 4 <Unspecified side> PHOSPHORUS LEVEL Routine 10/30/2022 11:1 9 AM CDT Non-small cell carcinoma of lung, TNM stage 4 <Unspecified side> MAGNESIUM LEVEL Routine 10/30/2022 11:19 AM CDT Non-small cell carcinoma of lung, TNM stage 4 <Unspecified side> COMPREHENSIVE METABOLIC PANEL Routine 10/30/2022 11:19 AM CDT Non-small cell carcinoma of lung, TNM stage 4 <Unspecified side> COMPLETE BLOOD COUNT W/ DIFFERENTIAL Routine 10/30/2022 11:19 AM CDT Non-small cell carcinoma of lung, TNM stage 4 <Unspecified side> MRI BRAIN W WO CONTRAST Routine 10/05/19 4:10 PM CDT Secondary malignant neoplasm of brain CT HEAD WO CONTRAST Routine 09/06/2022 6 :[address] CHEST ABDOMEN PELVIS W CONTRAST Routine 08/21/2022 8:56 PM CDT Non-small cell carcinoma of lung, TNM stage 4 <Unspecified side> FRACTIONATED BILIRUBIN Routine 5:28 PM CDT Non-small cell carcinoma of lung, TNM stage 4 <Unspecified side> TOTAL PROTEIN Routine 08/21/2022 5:28 PM CDT Non-small cell carcinoma of lung, TNM stage 4 <Unspecified side> ASPARTATE AMINOTRANSFERASE Routine 08/21/2022 5:28 PM CDT Non-small cell carcinoma of lung, TNM stage 4 <Unspecified side> ALANINE AMINOTRANSFERASE Routine 023 5:28 PM CDT Non-small cell carcinoma of lung, TNM stage 4 <Unspecified side> ALKALINE PHOSPHATASE Routine 08/21/2022 5:28 PM CDT Non-small cell carcinoma of lung, TNM stage 4 <Unspecified side> ALBUMIN LEVEL Routine 08/21/2022 5:28 PM CDT Non-small cell carcinoma of lung, TNM stage 4 <Unspecified side> CALCIUM LEVEL Routine 08/21/2022 5:28 PM CDT Non-small cell carcinoma of lung, TNM stage 4 <Unspecified side> .GLOMERULAR FILTRATION RATE Routine 08/21/2022 5:28 PM CDT Non-small cell carcinoma of lung, TNM stage 4 <Unspecified side> SERUM CREATININE Routine 08/21/2022 5:28 PM CDT Non-small cell carcinoma of lung, TNM stage 4 <Unspecified side> ELECTROLYTE PANEL Routine 08/21/2022 5:2 8 PM CDT Non-small cell carcinoma of lung, TNM stage 4 <Unspecified side> BLOOD UREA NITROGEN Routine 08/21/2022 5 :28 PM CDT Non-small cell carcinoma of lung, TNM stage 4 <Unspecified side> GLUCOSE LEVEL Routine 08/21/2022 5:28 PM CDT Non-small cell carcinoma of lung, TNM stage 4 <Unspecified side> DIFFERENTIAL Routine 08/21/2022 5:28 PM CDT Non-small cell carcinoma of lung, TNM stage 4 <Unspecified side> .CBC Routine 08/21/2022 5:28 PM CDT Non-small cell carcinoma of lung, TNM stage 4 <Unspecified side> COMPREHENSIVE METABOLIC PANEL Routine 08/21/2022 5:28 PM CDT Non-small cell carcinoma of lung, TNM stage 4 <Unspecified side> COMPLETE BLOOD COUNT W/ DIFFERENTIAL Routine 08/21/2022 5:28 PM CDT Non-small cell carcinoma of lung, TNM stage 4 <Unspecified side> after 08/13/2022 Results * (ABNORMAL) .CBC (08/11/2023 5:02 AM CDT) Only the most recent of34 resultswithin the time period is included. White Blood Cell 5.4 4.1 - 10.5 K/uL 08/11/2023 9:56 AM CDT [facility] Red Blood Cell 3.04(L) 3.99 - 5.46 M/uL 08/11/2023 9:56 AM CDT [facility] Hemoglobin 9.1(L) 12.2 - 15.3 g/dL 08/11/2023 9:56 AM CDT [facility] Hematocrit 28.9(L) 36.4 - 46.8 % 08/11/2023 9:56 AM CDT [facility] Mean Cell Volume 95 82 - 99 fL 08/11/2023 9:56 AM CDT [facility] Mean Cell Hemoglobin 29.9 26.6 - 33.2 pg 08/11/2023 9:56 AM CDT [facility] Mean Cell Hemoglobin Concentration 31.5 31.1 - 35.2 g/dL 08/11/2023 9:56 AM CDT [facility] RDW-SD 54.4(H) 37.5 - 49.7 fL 08/11/2023 9:56 AM CDT [facility] Red Cell Diameter Width 15.8(H) 11.6 - 15.5 % 08/11/2023 9:56 AM CDT [facility] Platelet 367 160 - 397 K/uL 08/11/2023 9:56 AM CDT [facility] Mean Platelet Volume 9.5 9.1 - 12.6 fL 08/11/2023 9:56 AM CDT [facility] INRBC 0.0 0.0 - 0.1 /100 WBC 08/11/2023 9:56 AM CDT [facility] Comment: The INRBC (instrument NRBC) value reflects the enumeration of nucleated red blood cells contained in a 200uL sample of whole blood analyzed by the instrument. This value may differ from the NRBC value reported in a manual differential, which is based on a 100 cell differential. Blood Peripheral blood specimen / Unknown Venipuncture / Unknown 08/11/2023 5:02 AM CDT 08/11/2023 5:10 AM CDT Asya Egan MD LAB BLOOD ORDERABLES [facility] Unless otherwise noted, all lab tests performed by: Division of Pathology and Laboratory Medicine [address] [place] [phone] * (ABNORMAL) Basic Metabolic Panel- Total Calcium (08/11/2023 5:02 AM CDT) Only the most recent of17 resultswithin the time period is included. eGFR 103 >=60 mL/min/1.7 3 sq. m 08/11/2023 5:40 AM T [facility] Comment: The eGFRcr is calculated with the 2020 CKD-EPI creatinine equation using creatinine, patient's age, and sex for adults 18 years of age and older. Other factors, especially muscle mass, may affect accuracy and need to be considered. According to the Kidney Disease: Improving Global Outcomes (KDIGO) CKD Work Group 2012 Clinical Practice Guideline, chronic kidney disease (CKD) is defined as the abnormalities of kidney structure or function, present for more than 3 months, with implications for health. CKD should be classified by cause, GFR category, and albuminuria category. KDIGO guidelines provide the following GFR categories. Stage / Description / GFR mL/min/1.73 m2: G1* / Normal or high / >= 90 G2* / Mildly decreased / 60-89 G3a / Mildly to moderately decreased / 45-59 G3b / Moderately to severely decreased / 30-44 G4 / Severely decreased / 15-29 G5 / Kidney failure / <15 *In the absence of evidence of kidney damage, neither G1 nor G2 fulfill criteria for CKD. Calcium Level Total 8.0(L) 8.2 - 10.2 mg/dL 08/11/2023 5:40 AM CDT [facility] Sodium Level 141 136 - 145 mmol/L 08/11/2023 5:40 AM T [facility] Potassium Level 3.8 3.4 - 4.5 mmol/L 08/11/2023 5:40 AM T [facility] Chloride 106 98 - 107 mmol/L 08/11/2023 5:40 AM CDT [facility] CO2 24 22 - 29 mmol/L 08/11/2023 5:40 AM T [facility] Anion Gap 11 4 - 14 mmol/L 08/11/2023 5:40 AM CDT [facility] Creatinine 0.71 0.51 - 0.95 mg/dL 08/11/2023 5:40 AM CDT [facility] BUN 11 6 - 23 mg/dL 08/11/2023 5:40 AM T [facility] Glucose Level 92 70 - 99 mg/dL 08/11/2023 5:40 AM CDT [facility] Comment: Effective 10/13/15, the glucose reference intervals have been updated based on [place] Diabetes Association guidelines (Standards of Medical Care in Diabetes 2016. Diabetes Care 2016; 39: S13-S22). Fasting blood glucose: Normal: 70-99 mg/dL Impaired fasting glucose (increased risk for diabetes or pre-diabetes): 100-125 mg/dL Diabetes mellitus: >/=126 mg/dL Random blood glucose: Normal: 70-199 mg/dL Note: Random glucose >100 mg/dL is associated with increased risk for diabetes. Blood Peripheral blood specimen / Unknown Venipuncture / Unknown 08/11/2023 5:02 AM CDT 08/11/2023 5:10 AM CDT Asya Egan MD LAB BLOOD ORDERABLES [facility] Unless otherwise noted, all lab tests performed by: Division of Pathology and Laboratory Medicine [address] [place] [id number] * (ABNORMAL) Differential (08/11/2023 5:02 AM CDT) Only the most recent of7 resultswithin the time period is included. Total Cells 114 08/11/2023 9:56 AM CDT [facility] Manual Neutrophil % 73.0(H) 43.2 - 72.7 % 08/11/2023 9:56 AM CDT [facility] Comment:The Neutrophil count includes Bands. Manual Lymphocyte % 18.0 16.8 - 46.2 % 08/11/2023 9:56 AM CDT [facility] Manual Monocyte % 4.0(L) 5.1 - 12.5 % 08/11/2023 9:56 AM CDT [facility] Manual Eosinophil % 5.0 0.4 - 6.3 % 08/11/2023 9:56 AM CDT [facility] Metamyelocyte % 9:56 AM CDT [facility] Comment:The Metamyelocyte co unt includes Myelocytes. Manual Neutrophil Abs 3.94 1.95 - 7.25 K/uL 08/11/2023 9:56 AM CDT [facility] Manual Lymphocyte Abs 0.97(L) 1.01 - 3.24 K/uL 08/11/2023 9:56 AM CDT [facility] Manual Monocyte Abs 0.22(L) 0.24 - 0.85 K/uL 08/11/2023 9:56 AM CDT [facility] Manual Eosinophil Abs 0.27 0.02 - 0.50 K/uL 08/11/2023 9:56 AM CDT [facility] RBC Morphology PRESENT 08/11/2023 9:56 AM CDT [facility] Ovalocyte Present(A) (none) 08/11/2023 9:56 AM CDT [facility] Tear Drop Present(A) (none) 08/11/2023 9:56 AM CDT [facility] Slide Comment SEE NOTE 08/11/2023 9:56 AM CDT [facility] Comment:Platelet morphology normal. Blood Peripheral blood specimen / Unknown Venipuncture / Unknown 08/11/2023 5:02 AM CDT 08/11/2023 5:10 AM CDT Asya Egan MD LAB BLOOD ORDERABLES [facility] Unless otherwise noted, all lab tests performed by: Division of Pathology and Laboratory Medicine [address] [place] [phone] * Phosphorus Level (08/11/2023 5:02 AM CDT) Only the most recent of29 resultswithin the time period is included. Phosphorus Level 3.3 2.5 - 4.5 mg/dL 08/11/2023 5:40 AM CDT [facility] Blood Peripheral blood specimen / Unknown Venipuncture / Unknown 08/11/2023 5:02 AM CDT 08/11/2023 5:10 AM CDT Sujata Grant MD LAB BLOOD ORDERABLES [facility] Unless otherwise noted, all lab tests performed by: Division of Pathology and Laboratory Medicine [address] [place] [id number] * Magnesium Level (08/11/2023 5:02 AM CDT) Only the most recent of29 resultswithin the time period is included. Magnesium Level 2.0 1.6 - 2.6 mg/dL 08/11/2023 5:40 AM CDT [facility] Blood Peripheral blood specimen / Unknown Venipuncture / Unknown 08/11/2023 5:02 AM CDT 08/11/2023 5:10 AM CDT Sujata Grant MD LAB BLOOD ORDERABLES [facility] Unless otherwise noted, all lab tests performed by: Division of Pathology and Laboratory Medicine [address] [place] [id number] * MRI Brain with and without Contrast (08/08/2023 11:19 AM CDT) Only the most recent of5 resultswithin the time period is included. Anatomical Region Laterality Modality Head Magnetic Resonan ce 08/08/2023 11:2 6 AM CDT Impressions 08/08/2023 11:46 AM CDT 1. No new lesions are seen since prior study. 2. Slight increase in size of treated right anterior insular lesion with increased surrounding FLAIR hyperintense signal favored to reflect post treatment change, to be followed. 3. Remaining treated lesions are stable. 4. Leptomeningeal disease is absent. 5. Overall similar size of right cerebral convexity subdural hematoma. No new intracranial hemorrhage. ACTIONABLE ITEMS/RECOMMENDATIONS*: None. *An Actionable Finding is a finding that may be unrelated to the original reason for imaging but potentially actionable, meaning further investigation may be necessary. The Actionable Findings Vigilance Unit (AFVU) assists medical providers with responding to additional radiologic findings that are unexpected and potentially actionable. Narrative 08/08/2023 11:46 AM CDT FULL RESULT: Examination: MRI BRAIN W WO CONTRAST on 08/08/2023 11:19 AM. CLINICAL HISTORY: Acute encephalopathy, metastatic lung adenocarcinoma status post whole brain radiation 2017, craniotomy with left temporal tumor resection 02/10/2020, whole brain completed 04/22/2020, Gamma knife 04/11/2023 INDICATION: Intracranial neoplasm (known or suspected), Therapeutic complication assessment, No headache COMPARISON: CT 07/30/2023, MRI 06/29/2023. TECHNIQUE: MRI of the brain without and with IV contrast was performed. FINDINGS: New Lesions: No new lesions. Non-irradiated Lesions: None. Irradiated Lesions: There is interval slight increase in size of treated right anterior insular lesion measuring 1 cm on image 162 series 1000 with increased surrounding FLAIR hyperintense signal without significant mass effect. Remaining treated lesions appear stable and are dictated on series 1000. No evidence of recurrence at the left temporal resection cavity is identified. Leptomeningeal Disease: None. Others: There is overall similar size of right cerebral convexity subdural hemorrhage. There is no midline shift. No hydrocephalus. There are no suspicious calvarial or skull base lesions. There is no sellar or suprasellar abnormalities. Mucosal thickening in the bilateral maxillary, anterior and posterior ethmoidal sinuses is present. There are bilateral mastoid effusions, left greater than right. Procedure Note Sharlene Wayne MD - 08/08/2023 FULL RESULT: Examination: MRI BRAIN W WO CONTRAST on 08/08/2023 11:19 AM. CLINICAL HISTORY: Acute encephalopathy, metastatic lung adenocarcinomastatus post whole brain radiation 2017, craniotomy with left temporaltumor resection 02/10/2020, whole brain completed 04/22/2020, Gamma knife04/11/2023 INDICATION: Intracranial neoplasm (known or suspected), Therapeuticcomplication assessment, No headache COMPARISON: CT 07/30/2023, MRI 06/29/2023. TECHNIQUE: MRI of the brain without and with IV contrast was performed. FINDINGS: New Lesions: No new lesions. Non-irradiated Lesions: None. Irradiated Lesions: There is interval slight increase in size of treated right anteriorinsular lesion measuring 1 cm on image 162 series 1000 with increasedsurrounding FLAIR hyperintense signal without significant mass effect.Remaining treated lesions appear stable and are dictated on series 1000. No evidence of recurrence at the left temporal resection cavity isidentified. Leptomeningeal Disease: None. Others: There is overall similar size of right cerebral convexity subduralhemorrhage. There is no midline shift. No hydrocephalus. There are no suspicious calvarial or skull base lesions. There is no sellar or suprasellar abnormalities. Mucosal thickening in the bilateral maxillary, anterior and posteriorethmoidal sinuses is present. There are bilateral mastoid effusions, leftgreater than right. IMPRESSION: 1. No new lesions are seen since prior study. 2. Slight increase in size of treated right anterior insular lesion withincreased surrounding FLAIR hyperintense signal favored to reflect posttreatment change, to be followed. 3. Remaining treated lesions are stable. 4. Leptomeningeal disease is absent. 5. Overall similar size of right cerebral convexity subdural hematoma. Nonew intracranial hemorrhage. ACTIONABLE ITEMS/RECOMMENDATIONS*: None. *An Actionable Finding is a finding that may be unrelated to the originalreason for imaging but potentially actionable, meaning furtherinvestigation may be necessary. The Actionable Findings Vigilance Unit(AFVU) assists medical providers with responding to additional radiologicfindings that are unexpected and potentially actionable. Dany Bonilla MD [facility] MRI ORDERABLES * Gastrointestinal Multiplex PCR Panel (08/04/2023 3:24 PM CDT) Only the most recent of3 resultswithin the time period is included. Campylobacter Not Detected Not Detected 08/04/2023 6:07 PM CDT [facility] Plesiomonas shigelloides Not Detected Not Detected 08/04/2023 6:07 PM CDT [facility] Salmonella Not Detected Not Detected 08/04/2023 6:07 PM CDT [facility] Vibrio Not Detected Not Detected 08/04/2023 6:07 PM CDT [facility] Vibrio cholerae Not Detected Not Detected 08/04/2023 6:07 PM CDT [facility] Yersinia enterocolitica Not Detected Not Detected 08/04/2023 6:07 PM CDT [facility] Enteroaggregative E. coli (EAEC) Not Detected Not Detected 08/04/2023 6:07 PM CDT [facility] Enteropathogenic E. coli (EPEC) Not Detected Not Detected 08/04/2023 6:07 PM CDT [facility] Enterotoxigenic E. coli (ETEC) LT/ST Not Detected Not Detected 08/04/2023 6:07 PM CDT [facility] Shiga-like toxin-producing E. coli (STEC) Stx1/Stx2 Not Detected Not Detected 08/04/2023 6:07 PM CDT [facility] E. coli O157 N/A Not Detected 08/04/2023 6:07 PM CDT [facility] Shigella/Enteroinvas lyndsay E. coli (EIEC) Not Detected Not Detected 08/04/2023 6:07 PM CDT [facility] Cryptosporidium Not Detected Not Detected 08/04/2023 6:07 PM CDT [facility] Cyclospora cayetanensis Not Detected Not Detected 08/04/2023 6:07 PM CDT [facility] Entamoeba histolytica Not Detected Not Detected 08/04/2023 6:07 PM CDT [facility] Giardia lamblia Not Detected Not Detected 08/04/2023 6:07 PM CDT [facility] Adenovirus F40/41 Not Detected Not Detected 08/04/2023 6:07 PM CDT [facility] Astrovirus Not Detected Not Detected 08/04/2023 6:07 PM CDT [facility] Norovirus GI/GII Not Detected Not Detected 08/04/2023 6:07 PM CDT [facility] Rotavirus A Not Detected Not Detected 08/04/2023 6:07 PM CDT [facility] Sapovirus (I, II, IV, V) Not Detected Not Detected 08/04/2023 6:07 PM CDT [facility] C. difficile Refer to separate C. difficile DNA Detection assay for results. 08/04/2023 6:07 PM CDT [facility] Stool Rectum structure / Unknown Non-blood Collection / Unknown 08/04/2023 3:24 PM CDT 08/04/2023 4:27 PM CDT [facility] - 08/04/2023 6:07 PM CDT The assay is a qualitative multiplex PCR assay to aid in the diagnosis of gastrointestinal infection through simultaneous qualitative detection and identification of multiple GI pathogens in diarrheal specimens collected in [employer] transport media obtained from individuals suspected of gastrointestinal infections. Testing is performed using the [employer] Gastrointestinal (GI) Panel on the [employer] System. The following organisms are identified using the [employer] GI Panel: Campylobacter spp., Plesiomonas shigelloides, Salmonella spp, Vibrio spp, including specific identification of Vibrio cholerae, Yersinia enterocolitica, Enteroaggregative Escherichia coli (EAEC), Enteropathogenic Escherichia coli (EPEC), Enterotoxigenic Escherichia coli (ETEC), Shiga-like toxin-producing Escherichia coli (STEC) including specific identification of the E. coli O157, Shigella spp/Enteroinvasive Escherichia coli (EIEC), Cryptosporidium, Cyclospora cayetanensis, Entamoeba histolytica, Giardia lamblia, Adenovirus F 40/41, Astrovirus, Norovirus GI/GII, Rotavirus, and Sapovirus. C. difficile testing is NOT reported in this assay and should be ordered separately. A result of Not Detected" does not exclude the possibility of the presence of one or more of the pathogens at or below the detection limits of this assay nor does it exclude the possibility of diarrheal pathogens not detected by this panel. Non-infectious causes of diarrhea should also be considered in such cases. Internal controls are used to monitor all stages of the testing process including amplification inhibition. If inhibition is detected, testing is repeated and if inhibition is confirmed the specimen is resulted as "Invalid". When an "Invalid" result occurs, it is recommended to wait 3 days before submitting a new specimen for testing if clinically indicated. This is an FDA-approved assay and its performance characteristics were verified by the microbiology laboratory at the [facility] [place]. Results must be interpreted within the context of all relevant clinical and laboratory findings. Assay should not be used for monitoring response to therapy. Dany Bonilla MD MICROBIOLOGY - SISSY AL ORDERABLES [facility] Unless otherwise noted, all lab tests performed by: Division of Pathology and Laboratory Medicine [address] [place] [phone] * C. difficile DNA Detection (08/04/2023 3:24 PM CDT) Only the most recent of4 resultswithin the time period is included. C. difficile - DNA Negative Negative 08/05/2023 10:34 AM CDT [facility] C. difficile - EIA Test Not Performed Negative 08/05/2023 10:34 AM CDT [facility] C. difficile - Interpretation C. difficile DNA detection was negative making C. difficile infection highly unlikely in this patient. EIA not performed. 08/05/2023 10:34 AM CDT [facility] Stool Rectum structure / Unknown Non-blood Collection / Unknown 08/04/2023 3:24 PM CDT 08/04/2023 4:27 PM CDT Narrative [facility] - 08/05/2023 10:34 AM CDT Qualitative detection of C. difficile DNA performed using helicase-dependent amplification of a conserved region of a pathogenicity locus (PaLoc) in toxigenic C. difficile strains. It is an FDA-approved assay performed on the [employer] Instrument from [employer] and is intended for use as an aid in diagnosis of C. difficile infections. Testing is performed only on liquid stools. Detection of C difficile DNA does not differentiate between infection versus colonization. Stool specimens that are positive for C. difficile DNA undergo toxin antigen testing by C difficile EIA. The C. difficile EIA detects the presence of C. difficile Toxin A and B proteins via a rapid immunoassay using the FDA-approved ImmunoCard by [employer]. Patients positive for BOTH C. difficile DNA and toxin proteins by EIA are more likely to have a C. difficile infection. However, patients positive only for C. difficile DNA but negative for toxins by EIA are less likely to have a C. difficile infection and may represent asymptomatic colonization. Recommend clinical assessment in these cases. If significant diarrhea is present, C. difficile infection remains a possibility. When invalid results are obtained by either the primary or reflex method, a new specimen should be collected for repeat testing if clinically indicated. The performance characteristics of the C. difficile DNA and EIA assays were verified by the microbiology laboratory at the [facility]. Results must be interpreted within the context of all relevant clinical and laboratory findings. Dany Bonilla MD MICROBIOLOGY - SISSY GONZALES ORDERABLES [facility] Unless otherwise noted, all lab tests performed by: Division of Pathology and Laboratory Medicine [address] [place] [address] * (ABNORMAL) Procalcitonin (08/04/2023 4:19 AM CDT) Only the most recent of3 resultswithin the time period is included. Procalcitonin 0.48(H) <=0.08 ng/mL 08/04/2023 10:15 AM CDT [facility] Blood Peripheral blood specimen / Unknown Venipuncture / Unknown 08/04/2023 4:19 AM CDT 08/04/2023 5:16 AM CDT Narrative [facility] - 08/04/2023 10:15 AM CDT Procalcitonin > 2.00 ng/mL: Procalcitonin levels above 2.00 ng/mL are highly suggestive of a high risk for systematic bacterial infection/ severe sepsis and/or septic shock. Procalcitonin < 0.50 ng/mL: Procalcitonin levels below 0.50 ng/mL are at low risk for progression to severe sepsis and/ or septic shock. Procalcitonin (ProCT) between 0.15 and 2.0 ng/mL do not exclude infection, because localized infections (without systemic signs) may be associated with such low levels. Results greater than 400 ng/mL may not be reliable due to the matrix effect with extended dilution as it exceeds the medical biller/coder's recommended limit. Caution should be exercised when interpreting such values and done in conjunction with clinical context. Dany Bonilla MD LAB BLOOD ORDERABLES [facility] Unless otherwise noted, all lab tests performed by: Division of Pathology and Laboratory Medicine [facility] [place] [address] * (ABNORMAL) Hepatic Function Panel (08/04/2023 4:19 AM CDT) Only the most recent of2 resultswithin the time period is included. Bilirubin Total <0.3 0.0 - 1.2 mg/dL 08/04/2023 11:14 AM CDT [facility] Comment: Direct and indirect bilirubin will not be reported when Total bilirubin result is <0.3 mg/dL Indocyanine Green (ICG) may cause falsely elevated bilirubin results. Total and direct bilirubin must not be measured from samples containing indocyanine green. False elevation of total bilirubin can be seen in patients with IgG concentrations above 28 g/L. Bilirubin Direct 08/04/19 11:14 AM CDT [facility] Comment: Direct and indirect bilirubin will not be reported when Total bilirubin result is <0.3 mg/dL Indocyanine Green (ICG) may cause falsely elevated bilirubin results. Total and direct bilirubin must not be measured from samples containing indocyanine green. Bilirubin Indirect 2023 11:14 AM CDT [facility] Comment:Direct and indirect bilirubin will not be reported when Total bilirubin result is <0.3 mg/dL Tot Protein 6.3(L) 6.4 - 8.3 gm/dL 08/04/2023 11:14 AM CDT [facility] Alkaline Phosphatase 93 35 - 104 U/L 08/04/2023 11:14 AM CDT [facility] Albumin Level 3.0(L) 3.5 - 5.2 gm/dL 08/04/2023 11:14 AM CDT [facility] AST 14 <=32 U/L 08/04/2023 11:14 AM CDT [facility] ALT 6 <=33 U/L 08/04/2023 11:14 AM CDT [facility] Blood Peripheral blood specimen / Unknown Venipuncture / Unknown 08/04/2023 4:19 AM CDT 08/04/2023 5:16 AM CDT Dany Bonilla MD LAB BLOOD ORDERABLES [facility] Unless otherwise noted, all lab tests performed by: Division of Pathology and Laboratory Medicine [address] [place] [phone] * XR Chest 1 View (08/03/2023 11:10 AM CDT) Only the most recent of3 resultswithin the time period is included. Anatomical Region Laterality Modality Chest Digital Radiogra phy 08/03/2023 11:2 1 AM CDT Impressions 08/03/2023 11:23 AM CDT Suspected new features of peribronchial infectious change. ACTIONABLE ITEMS/RECOMMENDATIONS*: None. *An Actionable Finding is a finding that may be unrelated to the original reason for imaging but potentially actionable, meaning further investigation may be necessary. The Actionable Findings Vigilance Unit (AFVU) assists medical providers with responding to additional radiologic findings that are unexpected and potentially actionable. Narrative 08/03/2023 11:23 AM CDT FULL RESULT: Examination: XR CHEST 1 VW on 08/03/2023 11:10 AM. Clinical History: Sepsis Indication: Cough Comparison: 07/30/2023 Technique: Frontal radiograph of the chest Findings: Support Apparatus: Gastric banding device partially visualized. Lungs/Pleura/Mediastinum: Poor inspiration. Despite this, new diffuse peribronchial ill-defined opacities are present, suggestive of infection. No effusions or pneumothorax. No edematous features. Procedure Note Jared Nick MD - 08/03/2023 FULL RESULT: Examination: XR CHEST 1 VW on 08/03/2023 11:10 AM. Clinical History: Sepsis Indication: Cough Comparison: 07/30/2023 Technique: Frontal radiograph of the chest Findings: Support Apparatus: Gastric banding device partially visualized. Lungs/Pleura/Mediastinum: Poor inspiration. Despite this, new diffuseperibronchial ill-defined opacities are present, suggestive of infection.No effusions or pneumothorax. No edematous features. IMPRESSION: Suspected new features of peribronchial infectious change. ACTIONABLE ITEMS/RECOMMENDATIONS*: None. *An Actionable Finding is a finding that may be unrelated to the originalreason for imaging but potentially actionable, meaning furtherinvestigation may be necessary. The Actionable Findings Vigilance Unit(AFVU) assists medical providers with responding to additional radiologicfindings that are unexpected and potentially actionable. Dany Bonilla MD [facility] DIAGNOSTIC IMAGI NG ORDERABLES * Respiratory Multiplex PCR Panel, Nasopharyngeal Swab (08/03/2023 11:06 AM CDT) Adenovirus Not Detected Not Detected 08/03/2023 2:43 PM CDT [facility] Coronavirus 229E Not Detected Not Detected 08/03/2023 2:43 PM CDT [facility] Coronavirus HKU1 Not Detected Not Detected 08/03/2023 2:43 PM CDT [facility] Coronavirus NL63 Not Detected Not Detected 08/03/2023 2:43 PM CDT [facility] Coronavirus OC43 Not Detected Not Detected 08/03/2023 2:43 PM CDT [facility] COVID-19 (SARS-CoV-2) Not Detected Not Detected 08/03/2023 2:43 PM CDT [facility] Human Metapneumovirus Not Detected Not Detected 08/03/2023 2:43 PM CDT [facility] Human Rhinovirus/Enterov irus Not Detected Not Detected 08/03/2023 2:43 PM CDT [facility] Influenza A Not Detected Not Detected 08/03/2023 2:43 PM CDT [facility] Influenza A H1 Not Detected Not Detected 08/03/2023 2:43 PM CDT [facility] Influenza A H1 2009 Not Detected Not Detected 08/03/2023 2:43 PM CDT [facility] Influenza A H3 Not Detected Not Detected 08/03/2023 2:43 PM CDT [facility] Influenza B Not Detected Not Detected 08/03/2023 2:43 PM CDT [facility] Parainfluenza Virus 1 Not Detected Not Detected 08/03/2023 2:43 PM CDT [facility] Parainfluenza Virus 2 Not Detected Not Detected 08/03/2023 2:43 PM CDT [facility] Parainfluenza Virus 3 Not Detected Not Detected 08/03/2023 2:43 PM CDT [facility] Parainfluenza Virus 4 Not Detected Not Detected 08/03/2023 2:43 PM CDT [facility] Respiratory Syncytial Virus Not Detected Not Detected 08/03/2023 2:43 PM CDT [facility] Bordetella parapertussis Not Detected Not Detected 08/03/2023 2:43 PM CDT [facility] Bordetella pertussis Not Detected Not Detected 08/03/2023 2:43 PM CDT [facility] Chlamydophila pneumoniae Not Detected Not Detected 08/03/2023 2:43 PM CDT [facility] Mycoplasma pneumoniae Not Detected Not Detected 08/03/2023 2:43 PM CDT [facility] Swab Nasopharyngeal structure / Unknown Non-blood Collection / Unknown 08/03/2023 11:06 AM CDT 08/03/2023 11:26 AM CDT Narrative [facility] - 08/03/2023 2:43 PM CDT The assay is a qualitative multiplex PCR assay to aid in the diagnosis of respiratory pathogens through simultaneous qualitative detection and identification of multiple pathogens directly from nasopharyngeal swabs (STORE DIRECTOR) from individuals with respiratory symptoms. Testing is performed using the [employer] Respiratory Panel 2.1 (RP2.1) on the [employer] System. The following organisms are identified using the [employer] RP 2.1 Panel: Adenovirus, Human Coronavirus (229E, HKU1, NL63, and OC43), Severe Acute Respiratory Syndrome Coronavirus 2 (SARS-CoV-2), Human Metapneumovirus, Human Rhinovirus/Enterovirus, Influenza A, including subtypes (H1, H3 and H1-2009), Influenza B, Parainfluenza Virus (1, 2, 3, and 4), Respiratory Syncytial Virus, Bordetella parapertussis, Bordetella pertussis, Chlamydia pneumoniae, and Mycoplasma pneumoniae A result of Not Detected" does not exclude the possibility of the presence of one or more of the pathogens at or below the detection limits of this assay nor does exclude the possibility of pathogens not detected by this panel. Non-infectious causes of respiratory symptoms should also be considered in such cases. Internal controls are used to monitor all stages of the testing process including amplification inhibition. If inhibition is detected, testing is repeated and if inhibition is confirmed the specimen is resulted as "Invalid". When an "Invalid" result occurs, it is recommended to wait 3 days before submitting a new specimen for testing if clinically indicated. This is an FDA-approved assay and its performance characteristics were verified by the microbiology laboratory at the [facility] (CLIA Accreditation # [id number] and CAP Accreditation # [id number]). Results must be interpreted within the context of all relevant clinical and laboratory findings. Assay should not be used for monitoring response to therapy. Dany Bonilla MD MICROBIOLOGY - SISSY GONZALES ORDERABLES [facility] Unless otherwise noted, all lab tests performed by: Division of Pathology and Laboratory Medicine [address] [place] [phone] * (ABNORMAL) Urinalysis with Reflex Culture (08/02/2023 5:30 PM CDT) Urine Appearance Cloudy(A) Clear 08/02/19 24 5:50 PM CDT [facility] Comment:This result was prev iously suppressed from the chart. Urine Color Yellow Colorless, Straw, Yellow, Dark Yellow, Straw-Yellow 08/02/2023 5:50 PM CDT [facility] Comment:This result was prev iously suppressed from the chart. Urine Specific [place] 1.011 1.003 - 1.035 08/02/2023 5:50 PM CDT [facility] Comment:This result was prev iously suppressed from the chart. Urine pH 6.0 5.0 - 8.0 08/02/2023 5:50 PM CDT [facility] Comment:This result was prev iously suppressed from the chart. Urine Glucose Negative Negative mg/dL 08/02/2023 5:50 PM CDT [facility] Comment:This result was prev iously suppressed from the chart. Urine Ketones 20(A) Negative mg/dL 08/02/2023 5:50 PM CDT [facility] Comment:This result was prev iously suppressed from the chart. Urine Blood Small(A) Negative 08/02/2023 5:50 PM CDT [facility] Comment:This result was prev iously suppressed from the chart. Urine Protein 30(A) Negative mg/dL 08/02/2023 5:50 PM CDT [facility] Comment:This result was prev iously suppressed from the chart. Urine Bilirubin Negative Negative 5:50 PM CDT [facility] Urine Urobilinogen Negative Negative 08/02/2023 5:50 PM CDT [facility] Urine Nitrite Negative Negative 08/02/2023 5:50 PM CDT [facility] Comment:This result was prev iously suppressed from the chart. Urine Leukocyte Esterase Large(A) Negative 08/02/2023 5:50 PM CDT [facility] Comment:This result was prev iously suppressed from the chart. Urine Mucous Not Seen Not Seen, Trace /HPF 08/02/2023 5:50 PM CDT [facility] Comment:This result was prev iously suppressed from the chart. Urine Bacteria 1+(A) Not Seen /HPF 08/02/2023 5:50 PM CDT [facility] Comment:This result was prev iously suppressed from the chart. Urine Squamous Epithelial Cells Not Seen Not Seen, OCC, Rare /HPF 08/02/2023 5:50 PM CDT [facility] Comment:This result was prev iously suppressed from the chart. Urine WBC 44(H) <=2 /HPF 08/02/2023 5:50 PM CDT [facility] Urine RBC 7(H) <=2 /HPF 08/02/2023 5:50 PM CDT [facility] Urine Voided urine specimen / Unknown Non-blood Collection / Unknown 08/02/2023 5:30 PM CDT 08/02/2023 5:36 PM CDT Narrative [facility] - 08/02/2023 5:50 PM CDT Some reporting parameters within the Urinalysis test have changed due to the implementation of new instrumentation in the [facility] [place], allowing greater sensitivity of measurement. Urinalysis results reported by the [facility] using existing instrumentation, as well as Urinalysis testing performed manually or by back-up methodology at the [place], will remain relatively unchanged. New reporting parameters and units will now be reported for all campuses. Sujata Grant MD URINE ORDERABLES [facility] Unless otherwise noted, all lab tests performed by: Division of Pathology and Laboratory Medicine [address] [place] [id number] * Urine Culture (08/02/2023 5:30 PM CDT) Only the most recent of5 resultswithin the time period is included. Urine Culture Normal site елена present. Generally of low significance. Correlate with clinical data and culture history. 08/04/2023 10:13 AM CDT [facility] Urine Voided urine specimen / Unknown Non-blood Collection / Unknown 08/02/2023 5:30 PM CDT 08/02/2023 5:36 PM CDT Sujata Grant MD MICROBIOLOGY - GENER AL ORDERABLES Performing Organization Address City/[facility]/ZIP Co de Phone Number [facility] Unless otherwise noted, all lab tests performed by: Division of Pathology and Laboratory Medicine [address] [place], [place] [id number] * Blood Culture - Peripheral (08/02/2023 12:22 PM CDT) Only the most recent of5 resultswithin the time period is included. Blood Culture No Growth. 08/07/2023 2:01 PM CDT [facility] Blood Peripheral blood specimen / Unknown Venipuncture / Unknown 08/02/2023 12:22 PM CDT 08/02/2023 12:30 PM CDT Sujata Grant MD MICROBIOLOGY - GENER AL ORDERABLES Performing Organization Address City/[facility] de Phone Number [facility] Unless otherwise noted, all lab tests performed by: Division of Pathology and Laboratory Medicine [address] [place] [phone] * EEG (08/01/2023 8:54 PM CDT) Narrative Brooklyn Mckeon MD - 08/01/2023 8:54 PM CDT Brooklyn Mckeon MD 08/02/2023 10:42 AM EEG REPORT Patient: Zari Posadas Age: 52 y.o. Consult Service: Neuro-Oncology Consult Date: August 01, 2023 [place]: BROOKLYN MCKEON MD CLINICAL HISTORY This is 52 y.o. year-old with metastatic lung cancer to the brain. REQUESTING PHYSICIAN Dr. Juliann Reed TECHNIQUE Inpatient bedside study This is a prolonged study from 07/31 3:59 pm until 08/01 10:23 am. STATE Awake/Sleep MEDS [place], Ativan 2mg. FINDINGS The background is disorganized. The record is asymmetric. The posterior dominant rhythm reaches 8 cps ,on the right, reactive to eye opening and eye closure. Anteriorly, beta, theta, and delta activities are seen. Drowsiness is accompanied by increased slowing. Stage 2 sleep does occur. Initially, there is nearly continuous periodic sharp waves occur on the left at 2.5 cps. Clinically, the patient is awake, but not responsive. After receiving Ativan 2mg, the sharp waves are less frequent on the left. Clinically, the patient is asleep. On 08/01 intermittent periodic discharges on the left occur at 1-2 cps. IMPRESSION This is an abnormal EEG. The findings are concerning for focal status on the left. There is electrographic improvement with ativan, but no clear immediate clinical improvement. Antiepileptic drug should be escalated. Kalpana Cannon MD NEUROLOGY ORDERABLE S * POC Glucose Screen - Fingerstick (08/01/2023 2:36 PM CDT) Only the most recent of7 resultswithin the time period is included. Glucose Screen 72 70 - 99 mg/dL 08/01/2023 2:37 PM CDT [facility] POC Sample Type Capillary 08/01/2023 2:37 PM CDT [facility] Blood 08/01/2023 2:36 PM CDT 08/01/2023 2:37 PM CDT Narrative [facility] - 08/01/2023 2:37 PM CDT Capillary blood samples, e.g. obtained by fingerstick, may have inaccurate results in patients with decreased peripheral blood flow. Method description: All results are measured using Electrochemistry test methodology. The glucose in the sample mixes with the reagents on the test strip. The reaction produces an electric current. The amount of current produced is proportional to the glucose concentration in the blood. All POC Glucose screen test results, including critical values, must be interpreted and evaluated in the context of the patients' clinical findings. It is recommended to confirm any questionable test results by core lab methodology. Kalpana Cannon MD POCT ORDERABLES - Leanna ALBA [facility] Organization Address City/State/ZIP Co de Phone Number [facility] Unless otherwise noted, all lab tests performed by: Division of Pathology and Laboratory Medicine [address] [place] [phone] * EKG, 12-Lead (Portable) (07/31/2023) Only the most recent of3 resultswithin the time period is included. Michelle Metzger MD ECG ORDERABLES Performing Organization Address City/[facility]/ZIP Co de Phone Number [facility] * Troponin T (In-House) (07/30/2023 11:52 PM CDT) Pathologist [facility] [place] Troponin T 19 <=19 ng/L 07/31/2023 12:23 AM CDT [facility] Blood Peripheral blood specimen / Unknown Venipuncture / Unknown 07/30/2023 11:52 PM CDT 07/30/2023 11:55 PM CDT Narrative [facility] - 07/31/2023 12:23 AM CDT Reference range established for age 21 - 89 years < 19 ng/L, suggest retest at 3 to 6 hours later to rule out myocardial infarction >= 19 to <=52 ng/L, possible myocardial injury; suggest retest at 3 hours - a change of < 20 ng/L, retest at 6 hours - a change of >= 20 ng/L, suggestive of myocardial infarction > 52 ng/L, suggestive of myocardial infarction Critical value will be reported when cTnT isf > 52 ng/L and only reported for the first in a series. Hemolyzed specimens with Hemolysis Index >100 (100 mg/dl or moderate hemolysis) may cause interferences and falsely low results. Shadia Clement MD LAB BLOOD ORDERABLES Performing Organization Address City/[facility]/ZIP Co de Phone Number [facility] Unless otherwise noted, all lab tests performed by: Division of Pathology and Laboratory Medicine [address] [place] [phone] * (ABNORMAL) Urinalysis Microscopic Exam (07/30/2023 11:12 PM CDT) Only the most recent of5 resultswithin the time period is included. Pathologist [facility] [place] Urine Mucous Not Seen Not Seen, Trace /HPF 07/30/2023 11:31 PM CDT [facility] Urine Bacteria Not Seen Not Seen /HPF 07/30/2023 11:31 PM CDT [facility] Urine Squamous Epithelial Cells OCC Not Seen, OCC, Rare /HPF 07/30/2023 11:31 PM CDT [facility] Urine WBC 69(H) <=2 /HPF 07/30/2023 11:31 PM CDT [facility] Urine RBC 2 <=2 /HPF 07/30/2023 11:31 PM CDT [facility] Urine Voided urine specimen / Unknown Non-blood Collection / Unknown 07/30/2023 11:12 PM CDT 07/30/2023 11:17 PM CDT Michelle Metzger MD LAB BLOOD ORDERABLES [facility] Unless otherwise noted, all lab tests performed by: Division of Pathology and Laboratory Medicine [address] [place] [phone] * (ABNORMAL) Urinalysis w/Microscopic if Indicated (07/30/2023 11:12 PM CDT) Only the most recent of5 resultswithin the time period is included. [facility] Urine Appearance Clear Clear 07/30/19 11:29 PM CDT [facility] Urine Color Straw Colorless, Straw, Yellow, Dark Yellow, Straw-Yello w 07/30/2023 11:29 PM CDT [facility] Urine Specific [place] 1.011 1.003 - 1.035 07/30/2023 11:29 PM CDT [facility] Urine pH 6.0 5.0 - 8.0 07/30/2023 11:29 PM CDT [facility] Urine Glucose Negative Negative mg/dL 07/30/2023 11:29 PM CDT [facility] Urine Ketones Negative Negative mg/dL 07/30/2023 11:29 PM CDT [facility] Urine Blood Small(A) Negative 07/30/2023 11:29 PM CDT [facility] Urine Protein 30(A) Negative mg/dL 07/30/2023 11:29 PM CDT [facility] Urine Bilirubin Negative Negative 11:29 PM CDT [facility] Urine Urobilinogen Negative Negative 07/30/2023 11:29 PM CDT [facility] Urine Nitrite Negative Negative 07/30/2023 11:29 PM CDT [facility] Urine Leukocyte Esterase Moderate(A) Negative 07/30/2023 11:29 PM CDT [facility] Urine Voided urine specimen / Unknown Non-blood Collection / Unknown 07/30/2023 11:12 PM CDT 07/30/2023 11:17 PM CDT Narrative [facility] - 07/30/2023 11:29 PM CDT Some reporting parameters within the Urinalysis test have changed due to the implementation of new instrumentation in the [facility] [place], allowing greater sensitivity of measurement. Urinalysis results reported by the [facility] using existing instrumentation, as well as Urinalysis testing performed manually or by back-up methodology at the [place], will remain relatively unchanged. New reporting parameters and units will now be reported for all campuses. Michelle Metzger MD URINE ORDERABLES [facility] Unless otherwise noted, all lab tests performed by: Division of Pathology and Laboratory Medicine [address] [place] [phone] * CT Head without Contrast (07/30/2023 10:04 PM CDT) Only the most recent of6 resultswithin the time period is included. Anatomical Region Laterality Modality Head Computed Tomogra phy 07/30/2023 10:1 5 PM CDT Impressions 07/31/2023 8:09 AM CDT 1. Redemonstration of stable right subdural hematoma at the right cerebral convexity. No new acute intracranial hemorrhage. 2. No midline shift or herniation. 3. No large acute vascular territory infarction. ACTIONABLE ITEMS/RECOMMENDATIONS*: None. *An Actionable Finding is a finding that may be unrelated to the original reason for imaging but potentially actionable, meaning further investigation may be necessary. The Actionable Findings Vigilance Unit (AFVU) assists medical providers with responding to additional radiologic findings that are unexpected and potentially actionable. I personally reviewed these image(s) along with the resident's/fellow's interpretations, certify that if a procedure was performed I was physically present, and agree with the final report. Narrative 07/31/2023 8:09 AM CDT FULL RESULT: Examination: CT HEAD WO CONTRAST on 07/30/2023 10:04 PM. CLINICAL HISTORY: A 52-year-old female with Metastatic lung cancer INDICATION: Intracranial neoplasm (known or suspected), Confusion, Altered Mental Status COMPARISON: CT head 07/24/23. CT head 06/27/2023 TECHNIQUE: CT head without IV contrast was performed. FINDINGS: Intracranial: Redemonstration of a similar intermediate density right subdural hematoma measuring 8.7 mm in depth, unchanged. No midline shift. No inferior herniation. No new acute intracranial hemorrhage. Status post left frontoparietal temporal craniotomy with resection of the left posterior temporal lobe with unchanged appearance. There is no large vascular territory infarct. Stable diffuse low-attenuation of the subcortical and periventricular white matter. The ventricles and extra-axial spaces are appropriate for age. Bone: There are no suspicious lytic or sclerotic calvarial and skull base lesions. Stable nonspecific near complete opacification of the left mastoid air cells. Extracranial: The orbits are unremarkable. Mucosal thickening of the bilateral maxillary sinuses, partially imaged. Otherwise, the paranasal sinuses are predominantly clear. Procedure Note Willie Alvarez MD - 07/31/2023 FULL RESULT: Examination: CT HEAD WO CONTRAST on 07/30/2023 10:04 PM. CLINICAL HISTORY: A 52-year-old female with Metastatic lung cancer INDICATION: Intracranial neoplasm (known or suspected), Confusion, AlteredMental Status COMPARISON: CT head 07/24/23. CT head 06/27/2023 TECHNIQUE: CT head without IV contrast was performed. FINDINGS: Intracranial: Redemonstration of a similar intermediate density right subdural hematomameasuring 8.7 mm in depth, unchanged. No midline shift. No inferior herniation. No new acute intracranialhemorrhage. Status post left frontoparietal temporal craniotomy with resection of theleft posterior temporal lobe with unchanged appearance. There is no large vascular territory infarct. Stable diffuse low-attenuation of the subcortical and periventricularwhite matter. The ventricles and extra-axial spaces are appropriate for age. Bone: There are no suspicious lytic or sclerotic calvarial and skull baselesions. Stable nonspecific near complete opacification of the left mastoid aircells. Extracranial: The orbits are unremarkable. Mucosal thickening of the bilateral maxillary sinuses, partially imaged.Otherwise, the paranasal sinuses are predominantly clear. IMPRESSION: 1. Redemonstration of stable right subdural hematoma at the rightcerebral convexity. No new acute intracranial hemorrhage. 2. No midline shift or herniation. 3. No large acute vascular territory infarction. ACTIONABLE ITEMS/RECOMMENDATIONS*: None. *An Actionable Finding is a finding that may be unrelated to the originalreason for imaging but potentially actionable, meaning furtherinvestigation may be necessary. The Actionable Findings Vigilance Unit(AFVU) assists medical providers with responding to additional radiologicfindings that are unexpected and potentially actionable. I personally reviewed these image(s) along with the resident's/fellow'sinterpretations, certify that if a procedure was performed I wasphysically present, and agree with the final report. Michelle Metzger MD IMG CT ORDERABLES * (ABNORMAL) POC VBG+LAC (07/30/2023 9:03 PM CDT) Only the most recent of3 resultswithin the time period is included. POC VB pH. 7.356 7.310 - 7.410 07/30/2023 9:20 PM CDT [facility] POC VB pCO2. 38.4(L) 41.0 - 51.0 mmHg 07/30/2023 9:20 PM CDT [facility] POC VB pO2. 23 mmHg 07/30/2023 9:20 PM CDT [facility] POC VB TCO2 23(L) 24 - 29 mmol/L 07/30/2023 9:20 PM CDT [facility] POC VB Bicarb 21.5(L) 23.0 - 28.0 mmol/L 07/30/2023 9:20 PM CDT [facility] POC VB Base Excess -4(L) -2 - 3 mmol/L 07/30/2023 9:20 PM CDT [facility] POC VB O2 Sat 38 % 07/30/2023 9:20 PM CDT [facility] POC VB LAC 1.14 0.90 - 1.70 mmol/L 07/30/2023 9:20 PM CDT [facility] POC FiO2 07/30/2023 9:20 PM CDT [facility] POC Sample Type Venous 07/30/2023 9:20 PM CDT [facility] Blood 07/30/2023 9:03 PM CDT 07/30/2023 9:20 PM CDT Narrative [facility] - 07/30/2023 9:20 PM CDT Method description: The i-STAT is an analyzer used for in vitro quantification of various analytes in whole blood. The device uses a single disposable cartridge which contains microfabricated sensors, a calibration solution, fluidics system, and a waste chamber. Each test cartridge contains chemically sensitive biosensors on a silicon chip that are configured to perform specific tests. The microfabricated sensors measure analyte concentration by an electrochemical assay. Shadia Clement MD POCT ORDERABLES - DE VICE [facility] Unless otherwise noted, all lab tests performed by: Division of Pathology and Laboratory Medicine [address] [place] [phone] * Fractionated Bilirubin (07/30/2023 8:55 PM CDT) Only the most recent of5 resultswithin the time period is included. Bilirubin Direct <0.2 0.0 - 0.3 mg/dL 07/30/2023 10:02 PM CDT [facility] Comment:Indocyanine Green (I CG) may cause falsely elevated bilirubin results. Total and direct bilirubin must not be measured from samples containing indocyanine green. Bilirubin Indirect 2023 10:02 PM CDT [facility] Comment:Unable to calculate Indirect Bilirubin result due to some parameters are outside reportable range Bilirubin Total 0.3 0.0 - 1.2 mg/dL 07/30/2023 10:02 PM CDT [facility] Comment: Indocyanine Green (ICG) may cause falsely elevated bilirubin results. Total and direct bilirubin must not be measured from samples containing indocyanine green. False elevation of total bilirubin can be seen in patients with IgG concentrations above 28 g/L. Indocyanine Green (ICG) may cause falsely elevated bilirubin results. Total and direct bilirubin must not be measured from samples containing indocyanine green. False elevation of total bilirubin can be seen in patients with IgG concentrations above 28 g/L. Blood Peripheral blood specimen / Unknown Venipuncture / Unknown 07/30/2023 8:55 PM CDT 07/30/2023 9:12 PM CDT Michelle Metzger MD LAB BLOOD ORDERABLES [facility] Unless otherwise noted, all lab tests performed by: Division of Pathology and Laboratory Medicine [facility] [place] [address] * (ABNORMAL) Comprehensive Metabolic Panel (07/30/2023 8:55 PM CDT) Only the most recent of15 resultswithin the time period is included. Bilirubin Total 0.3 0.0 - 1.2 mg/dL 07/30/2023 10:02 PM CDT [facility] Comment:Indocyanine Green (I CG) may cause falsely elevated bilirubin results. Total and direct bilirubin must not be measured from samples containing indocyanine green. False elevation of total bilirubin can be seen in patients with IgG concentrations above 28 g/L. eGFR 65 >=60 mL/min/1. 73 sq. m 07/30/2023 10:02 PM CDT [facility] Comment: The eGFRcr is calculated with the 2020 CKD-EPI creatinine equation using creatinine, patient's age, and sex for adults 18 years of age and older. Other factors, especially muscle mass, may affect accuracy and need to be considered. According to the Kidney Disease: Improving Global Outcomes (KDIGO) CKD Work Group 2012 Clinical Practice Guideline, chronic kidney disease (CKD) is defined as the abnormalities of kidney structure or function, present for more than 3 months, with implications for health. CKD should be classified by cause, GFR category, and albuminuria category. KDIGO guidelines provide the following GFR categories. Stage / Description / GFR mL/min/1.73 m2: G1* / Normal or high / >= 90 G2* / Mildly decreased / 60-89 G3a / Mildly to moderately decreased / 45-59 G3b / Moderately to severely decreased / 30-44 G4 / Severely decreased / 15-29 G5 / Kidney failure / <15 *In the absence of evidence of kidney damage, neither G1 nor G2 fulfill criteria for CKD. Tot Protein 7.5 6.4 - 8.3 gm/dL 07/30/2023 10:02 PM CDT [facility] Calcium Level Total 9.0 8.2 - 10.2 mg/dL 07/30/2023 10:02 PM CDT [facility] Alkaline Phosphatase 97 35 - 104 U/L 07/30/2023 10:02 PM CDT [facility] Albumin Level 3.9 3.5 - 5.2 gm/dL 07/30/2023 10:02 PM CDT [facility] AST 12 <=32 U/L 07/30/2023 10:02 PM CDT [facility] ALT 9 <=33 U/L 07/30/2023 10:02 PM CDT [facility] Sodium Level 142 136 - 145 mmol/L 07/30/2023 10:02 PM CDT [facility] Potassium Level 3.6 3.4 - 4.5 mmol/L 07/30/2023 10:02 PM CDT [facility] Chloride 107 98 - 107 mmol/L 07/30/2023 10:02 PM CDT [facility] CO2 19(L) 22 - 29 mmol/L 07/30/2023 10:02 PM T [facility] Anion Gap 16(H) 4 - 14 mmol/L 07/30/2023 10:02 PM CDT [facility] Creatinine 1.04(H) 0.51 - 0.95 mg/dL 07/30/2023 10:02 PM CDT [facility] BUN 11 6 - 23 mg/dL 07/30/2023 10:02 PM CDT [facility] Glucose Level 91 70 - 99 mg/dL 07/30/2023 10:02 PM T [facility] Comment: Effective 10/13/15, the glucose reference intervals have been updated based on [place] Diabetes [employer] guidelines (Standards of Medical Care in Diabetes 2016. Diabetes Care 2016; 39: S13-S22). Fasting blood glucose: Normal: 70-99 mg/dL Impaired fasting glucose (increased risk for diabetes or pre-diabetes): 100-125 mg/dL Diabetes mellitus: >/=126 mg/dL Random blood glucose: Normal: 70-199 mg/dL Note: Random glucose >100 mg/dL is associated with increased risk for diabetes. Blood Peripheral blood specimen / Unknown Venipuncture / Unknown 07/30/2023 8:55 PM CDT 07/30/2023 9:12 PM CDT Michelle Metzger MD LAB BLOOD ORDERABLES [facility] Unless otherwise noted, all lab tests performed by: Division of Pathology and Laboratory Medicine [address] [place] [phone] * (ABNORMAL) Cardiac Panel (07/30/2023 8:55 PM CDT) Creatine Kinase 53 26 - 192 U/L 07/30/2023 9:36 PM CDT [facility] CKMB <2.0 <=5.3 ng/mL 07/30/2023 9:36 PM CDT [facility] Troponin T 22(H) <=19 ng/L 07/30/2023 9:36 PM CDT [facility] Comment: < 19 ng/L Suggest retest at 3 to 6 hours later to rule out myocardial infarction >= 19 to <=52 ng/L Possible myocardial injury. Suggest retest at 3 hours. - a change of < 20 ng/L, retest at 6 hours - a change of >= 20 ng/L, suggestive of myocardial infarction > 52 ng/L Suggestive of myocardial infarction Critical value will be reported when cTnT is > 52 ng/L and only reported for the first in a series. Hemolyzed specimens with Hemolysis Index >100 (100 mg/dl or moderate hemolysis) may cause interferences and falsely low results. Blood Peripheral blood specimen / Unknown Venipuncture / Unknown 07/30/2023 8:55 PM CDT 07/30/2023 9:12 PM CDT Michelle Metzger MD LAB BLOOD ORDERABLES Performing Organization Address City/[facility]/ZIP Co de Phone Number [facility] Unless otherwise noted, all lab tests performed by: Division of Pathology and Laboratory Medicine [address] [place] [phone] * aPTT (07/30/2023 8:55 PM CDT) Only the most recent of2 resultswithin the time period is included. Activated PTT 33.5 24.1 - 35.5 second(s) 07/30/2023 9:38 PM CDT [facility] Blood Peripheral blood specimen / Unknown Venipuncture / Unknown 07/30/2023 8:55 PM CDT 07/30/2023 9:12 PM CDT Michelle Metzger MD LAB BLOOD ORDERABLES Performing Organization Address [facility] Co de Phone Number [facility] Unless otherwise noted, all lab tests performed by: Division of Pathology and Laboratory Medicine [address] [place] [phone] * (ABNORMAL) Prothrombin Time with INR (07/30/2023 8:55 PM CDT) Only the most recent of2 resultswithin the time period is included. Prothrombin Time 14.8(H) 11.9 - 14.5 second(s) 07/30/2023 9:38 PM CDT [facility] International Normalization Ratio 1.17(H) 0.87 - 1.12 07/30/2023 9:38 PM CDT [facility] Blood Peripheral blood specimen / Unknown Venipuncture / Unknown 07/30/2023 8:55 PM CDT 07/30/2023 9:12 PM CDT Michelle Metzger MD LAB BLOOD ORDERABLES Performing Organization Address City/[facility]/ZIP Co de Phone Number [facility] Unless otherwise noted, all lab tests performed by: Division of Pathology and Laboratory Medicine [address] [place] [phone] * (ABNORMAL) LDH (07/30/2023 8:55 PM CDT) Only the most recent of2 resultswithin the time period is included. LDH 239(H) 135 - 214 U/L 07/30/2023 10:02 PM CDT [facility] Blood Peripheral blood specimen / Unknown Venipuncture / Unknown 07/30/2023 8:55 PM CDT 07/30/2023 9:12 PM CDT Narrative [facility] - 07/30/2023 10:02 PM CDT Results greater than 1651 U/L may not be reliable due to matrix effect with extended dilution as it exceeds the medical biller/coder's recommended limit. Caution should be exercised when interpreting such values and done in conjunction with clinical context. Michelle Metzger MD LAB BLOOD ORDERABLES Performing Organization Address [facility] Co de Phone Number [facility] Unless otherwise noted, all lab tests performed by: Division of Pathology and Laboratory Medicine [address] [place] [phone] * Ammonia Level (07/30/2023 8:55 PM CDT) Only the most recent of2 resultswithin the time period is included. Ammonia Level 15 11 - 51 mcmol/L 07/30/2023 9:33 PM CDT [facility] Blood Peripheral blood specimen / Unknown Venipuncture / Unknown 07/30/2023 8:55 PM CDT 07/30/2023 9:13 PM CDT Michelle Metzger MD LAB BLOOD ORDERABLES Performing Organization Address [facility] Co de Phone Number [facility] Unless otherwise noted, all lab tests performed by: Division of Pathology and Laboratory Medicine [address] [place] [phone] * (ABNORMAL) Potassium Level (07/28/2023 7:10 PM CDT) Potassium Level 2.9(L) 3.4 - 4.5 mmol/L 07/28/2023 7:44 PM CDT [facility] Blood Peripheral blood specimen / Unknown Venipuncture / Unknown 07/28/2023 7:10 PM CDT 07/28/2023 7:13 PM CDT Narrative [facility] - 07/28/2023 7:44 PM CDT Reference range established based on adult population Tammy Archuleta PA-C LAB BLOOD ORDERABLES [facility] Unless otherwise noted, all lab tests performed by: Division of Pathology and Laboratory Medicine [address] [place] [phone] * (ABNORMAL) VBG (07/27/2023 10:29 AM CDT) pH Venous 7.33 7.32 - 7.43 07/27/2023 10:36 AM CDT [facility] P CO2 Venous 40.5(L) 41.0 - 51.0 mmHg 07/27/2023 10:36 AM CDT [facility] P O2 Venous 17 mmHg 07/27/2023 10:36 AM CDT [facility] Bicarbonate Venous 21 21 - 28 mmol/L 07/27/2023 10:36 AM CDT [facility] Base Excess Venous -5(L) -2 - 3 mmol/L 07/27/2023 10:36 AM CDT [facility] Oxygen Saturation Venous 24 % 07/27/2023 10:36 AM CDT [facility] Oxygen FLOW Rate/ FiO2 07/27/2023 10:36 AM CDT [facility] O2 Therapy 07/27/2023 10:36 AM CDT [facility] Blood Peripheral blood specimen / Unknown Venipuncture / Unknown 07/27/2023 10:29 AM CDT 07/27/2023 10:34 AM CDT Tammy Archuleta PA-C LAB BLOOD ORDERABLES [facility] Unless otherwise noted, all lab tests performed by: Division of Pathology and Laboratory Medicine [address] [place] [phone] * (ABNORMAL) Lactoferrin Detection (07/25/2023 10:28 PM CDT) Only the most recent of2 resultswithin the time period is included. Lactoferrin - Interpretation Positive( A) Negative 07/26/2023 8:02 AM CDT [facility] Comment:Assay positive for l actoferrin indicating inflammatory cells present in fecal specimen. Recommend clinical correlation and further testing to identify cause of inflammation. Stool Rectum structure / Unknown Non-blood Collection / Unknown 07/25/2023 10:28 PM CDT 07/25/2023 11:16 PM CDT Narrative [facility] - 07/26/2023 8:02 AM CDT Testing is performed using the LEUKO EZ ANDRESSA test, an immunochromatographic test for the qualitative detection of elevated levels of fecal lactoferrin, a marker for fecal leukocytes and an indicator of intestinal inflammation. A positive test result indicates an increased level of fecal lactoferrin and warrants additional testing to determine the cause of intestinal inflammation. This is an FDA-approved assay and its performance characteristics were verified by the microbiology laboratory at the [facility]. Results must be interpreted within the context of all relevant clinical and laboratory findings. Tammy Archuleta PA-C MICROBIOLOGY - [facility] AL ORDERABLES [facility] Unless otherwise noted, all lab tests performed by: Division of Pathology and Laboratory Medicine [address] [place] [phone] * (ABNORMAL) Calprotectin, Stool (07/25/2023 10:21 PM CDT) Only the most recent of2 resultswithin the time period is included. Calprotectin [facility] 89.3(H) <50.0 (Normal) mcg/g 07/30/2023 11:40 AM CDT [facility] Comment: Interpretation: Borderline (50.0-120 mcg/g) Test Performed by: [address] [address] Field Underwriter: Shad Metzger M.D. Ph.D.; CLIA# [id number] Stool Rectum structure / Unknown Non-blood Collection / Unknown 07/25/2023 10:21 PM CDT 07/25/2023 11:16 PM CDT Tammy Archuleta PA-C MICROBIOLOGY - GENER AL ORDERABLES [facility] * CT Chest Abdomen Pelvis with Contrast (07/23/2023 12:02 PM CDT) Only the most recent of5 resultswithin the time period is included. Anatomical Region Laterality Modality Abdomen, Pelvis, Chest Computed Tomography 07/23/2023 12:4 0 PM CDT Impressions 07/23/2023 1:05 PM CDT Bilateral pulmonary nodules/metastasis again noted. While number of lesions and small size limits comparison, a few questionably slightly larger. Close CT follow-up recommended. Please see above for full details. ACTIONABLE ITEMS/RECOMMENDATIONS*: None. *An Actionable Finding is a finding that may be unrelated to the original reason for imaging but potentially actionable, meaning further investigation may be necessary. The Actionable Findings Vigilance Unit (AFVU) assists medical providers with responding to additional radiologic findings that are unexpected and potentially actionable. Narrative 07/23/2023 1:05 PM CDT FULL RESULT: Examination: CT CHEST ABDOMEN PELVIS W CONTRAST on 07/23/2023 12:02 PM. Clinical History: Non-small cell carcinoma of lung, TNM stage 4 <Unspecified side> Indication: Therapeutic response assessment Comparison: 04/16/2023. Technique: CT CHEST ABDOMEN PELVIS W CONTRAST. Findings: Lungs/Airways/Pleura: No pleural effusion. Basilar atelectasis. Numerous tiny pulmonary nodules again noted. Number of lesions and small size limits exact comparison, with majority 2 to 3 mm and grossly stable. Largest nodule right lower lobe 6 mm series 302 image 73, previously 5 mm. Nodules images 54 and 68 subjectively slightly larger. Neck/Mediastinum/Nodes/Heart: Lower neck/thyroid with no acute findings. Ill- defined soft tissue inferior to right thyroid lobe similar. No pericardial effusion. No significant coronary calcifications. Partially calcified right supraclavicular, superior right prevascular lymph nodes, grossly stable. Abdomen and Pelvis: Cholecystectomy changes. Minimal fullness/nodularity left adrenal gland, stable. Remainder solid organs with no acute findings. Gastric banding changes noted. No small bowel obstructive changes or acute colonic findings. No abdominal aortic aneurysm or suspicious adenopathy. Urinary bladder decompressed. Uterus/adnexa grossly unremarkable. Bones/Soft Tissues: Subtle sclerosis anterior aspect L1, likely site of prior metastasis, stable. Schmorl's node superior endplate T12. Procedure Note Vitor Villareal MD - 07/23/2023 FULL RESULT: Examination: CT CHEST ABDOMEN PELVIS W CONTRAST on 07/23/2023 12:02 PM. Clinical History: Non-small cell carcinoma of lung, TNM stage 4<Unspecified side> Indication: Therapeutic response assessment Comparison: 04/16/2023. Technique: CT CHEST ABDOMEN PELVIS W CONTRAST. Findings: Lungs/Airways/Pleura: No pleural effusion. Basilar atelectasis. Numeroustiny pulmonary nodules again noted. Number of lesions and small sizelimits exact comparison, with majority 2 to 3 mm and grossly stable.Largest nodule right lower lobe 6 mm series 302 image 73, previously 5 mm.Nodules images 54 and 68 subjectively slightly larger. Neck/Mediastinum/Nodes/Heart: Lower neck/thyroid with no acute findings.Ill- defined soft tissue inferior to right thyroid lobe similar. Nopericardial effusion. No significant coronary calcifications. Partiallycalcified right supraclavicular, superior right prevascular lymph nodes,grossly stable. Abdomen and Pelvis: Cholecystectomy changes. Minimal fullness/nodularityleft adrenal gland, stable. Remainder solid organs with no acute findings.Gastric banding changes noted. No small bowel obstructive changes or acutecolonic findings. No abdominal aortic aneurysm or suspicious adenopathy.Urinary bladder decompressed. Uterus/adnexa grossly unremarkable. Bones/Soft Tissues: Subtle sclerosis anterior aspect L1, likely site ofprior metastasis, stable. Schmorl's node superior endplate T12. IMPRESSION: Bilateral pulmonary nodules/metastasis again noted. While number oflesions and small size limits comparison, a few questionably slightlylarger. Close CT follow-up recommended. Please see above for full details. ACTIONABLE ITEMS/RECOMMENDATIONS*: None. *An Actionable Finding is a finding that may be unrelated to the originalreason for imaging but potentially actionable, meaning furtherinvestigation may be necessary. The Actionable Findings Vigilance Unit(AFVU) assists medical providers with responding to additional radiologicfindings that are unexpected and potentially actionable. Dalia Weiner APRN IMG CT ORDERABLES * Creatine Kinase (07/23/2023 9:47 AM CDT) Only the most recent of3 resultswithin the time period is included. Creatine Kinase 48 26 - 192 U/L 07/23/2023 10:35 AM CDT [facility] Blood Peripheral blood specimen / Unknown Venipuncture / Unknown 07/23/2023 9:47 AM CDT 07/23/2023 9:47 AM CDT Dalia E Husam MEZA LAB BLOOD ORDERABL ES Performing Organization Address [facility] Co de Phone Number [facility] Unless otherwise noted, all lab tests performed by: Division of Pathology and Laboratory Medicine [address] [place] [phone] * Hemoglobin A1c (07/05/2023 5:51 AM CDT) Hemoglobin A1c 5.3 4.3 - 5.6 % 07/05/2023 8:26 AM CDT [facility] Blood Peripheral blood specimen / Unknown Venipuncture / Unknown 07/05/2023 5:51 AM CDT 07/05/2023 6:18 AM CDT Narrative [facility] - 07/05/2023 8:26 AM CDT HbA1c values >=6.5% are diagnostic of diabetes mellitus. Diagnosis should be confirmed by repeat testing. Therapeutic Action suggested: >8.0% HbA1c; Goal of therapy: <7.0% HbA1c Monica Mojillian MEZA LAB BLOOD ORDERABLES [facility] Unless otherwise noted, all lab tests performed by: Division of Pathology and Laboratory Medicine [address] [place] [phone] * EEG (07/04/2023 7:57 PM CDT) Narrative Brooklyn Mckeon MD - 07/04/2023 7:57 PM CDT Brooklyn Mckeon MD 07/04/2023 8:01 PM EEG REPORT Patient: Zari Posadas Age: 52 y.o. Consult Service: Neuro-Oncology Consult Date: July 04, 2023 [place]: BROOK[place]N MCKEON MD CLINICAL HISTORY This is 52 y.o. year-old with metastatic lung cancer to the brain. REQUESTING PHYSICIAN Dr. Kalpana Cannon TECHNIQUE Inpatient bedside study STATE Awake/Sleep MEDS [facility] FINDINGS The background is better organized on the right than on the left . The record is asymmetric. The posterior dominant rhythm reaches 8 cps, reactive to eye opening and eye closure. Anteriorly, beta activities are seen on the right; alpha and theta activities are seen on the left. Drowsiness is accompanied by increased slowing. Stage 2 sleep does occur. Left hemispheric theta slowing is seen. Intermittent ill defined left temporal sharp waves occur. IMPRESSION This is an abnormal EEG. The findings suggest a disturbance of cerebral activity on the left. Additionally, there is epileptogenic potential. No seizures occurred during the recording. Saloni Man APRN NEUROLOGY ORDERABLES * Historical ABORh (07/03/2023 6:54 PM CDT) ABORh A POS 07/03/2023 6:55 PM CDT [facility] Blood Peripheral blood specimen / Unknown 07/03/2023 6:54 PM CDT 07/03/2023 6:54 PM CDT Zuri Farr MD BLOOD BANK TEST DOTTIE SESAY [facility] [address] [place] [address] * Type and Screen (07/03/2023 3:34 PM CDT) ABORh A POS 07/03/2023 2:51 PM CDT [facility] ABSC Negative 07/03/2023 2:51 PM CDT [facility] Clot Expiration 07/06/2023 23:59 07/03/2023 2:51 PM CDT [facility] Historical Record Check Complete 07/03/2023 2:51 PM CDT [facility] Blood Peripheral blood specimen / Unknown Venipuncture / Unknown 07/03/2023 3:34 PM CDT 07/03/2023 6:32 PM CDT Zuri Farr MD BLOOD BANK TEST DOTTIE SESAY [facility] [address] [place] [address] [id number] [place] [address] * CKMB (07/03/2023 3:34 PM CDT) Pathologist [facility] [place] CKMB 3.9 <=5.3 ng/mL 07/03/2023 7:04 PM CDT [facility] Blood Peripheral blood specimen / Unknown Venipuncture / Unknown 07/03/2023 3:34 PM CDT 07/03/2023 6:32 PM CDT Abhijit Farr MD LAB BLOOD ORDERABLES Performing Organization Address City/[facility] Co de Phone Number [facility] Unless otherwise noted, all lab tests performed by: Division of Pathology and Laboratory Medicine [address] [place] [phone] * (ABNORMAL) Transferrin with TIBC (06/30/2023 4:26 AM CDT) Transferrin 167(L) 200 - 360 mg/dL 06/30/2023 7:41 AM CDT [facility] Total Iron Binding Capacity 234(L) 250 - 450 mcg/dL 06/30/2023 7:41 AM CDT [facility] Blood Peripheral blood specimen / Unknown Venipuncture / Unknown 06/30/2023 4:26 AM CDT 06/30/2023 4:41 AM CDT Isma Santoyo MD LAB BLOOD ORDERABL ES [facility] Unless otherwise noted, all lab tests performed by: Division of Pathology and Laboratory Medicine [address] [place] [id number] * Iron Level (06/30/2023 4:26 AM CDT) Iron Level 43 37 - 145 mcg/dL 06/30/2023 7:41 AM CDT [facility] Is patient fasting? 06/30/2023 7:41 AM CDT [facility] Blood Peripheral blood specimen / Unknown Venipuncture / Unknown 06/30/2023 4:26 AM CDT 06/30/2023 4:41 AM CDT Isma Santoyo MD LAB BLOOD ORDERABL ES [facility] Unless otherwise noted, all lab tests performed by: Division of Pathology and Laboratory Medicine [address] [place] [id number] * Ferritin Level (06/30/2023 4:26 AM CDT) Ferritin Level 18 13 - 150 ng/mL 06/30/2023 7:41 AM CDT [facility] Blood Peripheral blood specimen / Unknown Venipuncture / Unknown 06/30/2023 4:26 AM CDT 06/30/2023 4:41 AM CDT Narrative [facility] - 06/30/2023 7:41 AM CDT Reference range established for age 17 - 60 years Isma Santoyo MD LAB BLOOD ORDERABL ES [facility] Unless otherwise noted, all lab tests performed by: Division of Pathology and Laboratory Medicine [address] [place] [id number] * VB Lactate (06/27/2023 5:59 PM CDT) Venous Lactate 0.6 0.5 - 1.6 mmol/L 06/27/2023 6:08 PM CDT [facility] Oxygen FLOW Rate/ FiO2 06/27/2023 6:08 PM CDT [facility] O2 Therapy NONE 06/27/2023 6:08 PM CDT [facility] Blood Peripheral blood specimen / Unknown Venipuncture / Unknown 06/27/2023 5:59 PM CDT 06/27/2023 6:07 PM CDT Amanda Pearson MD LAB BLOOD ORDERABLES Performing Organization Address City/[facility]/ZIP Co de Phone Number [facility] Unless otherwise noted, all lab tests performed by: Division of Pathology and Laboratory Medicine [address] [place] [id number] * (ABNORMAL) ESR (06/27/2023 5:59 PM CDT) Pathologist [facility] [place] Sedimentation Rate 104(H) <=30 mm/hr 2023 7:27 PM CDT [facility] Blood Peripheral blood specimen / Unknown Venipuncture / Unknown 06/27/2023 5:59 PM CDT 06/27/2023 6:04 PM CDT Amnada Pearson MD LAB BLOOD ORDERABLES Performing Organization Address City/[facility] Co de Phone Number [facility] Unless otherwise noted, all lab tests performed by: Division of Pathology and Laboratory Medicine [address] [place] [address] [phone] * CRP (06/27/2023 5:59 PM CDT) CRP (C Reactive Protein) 13.81 mg/L 06/27/2023 7:02 PM CDT [facility] Blood Peripheral blood specimen / Unknown Venipuncture / Unknown 06/27/2023 5:59 PM CDT 06/27/2023 6:04 PM CDT Narrative [facility] - 06/27/2023 7:02 PM CDT Adult Reference ranges for HS CRP assay are as follows: Reference ranges when used to assess cardiac risk: <1.00 mg/L Low cardiovascular risk 1.00-3.00 mg/L Average cardiovascular risk >3.00 mg/L High cardiovascular risk Reference ranges when used to assess inflammatory responses: Less than or equal to 10.00 mg/L. Amanda Pearson MD LAB BLOOD ORDERABLES [facility] Unless otherwise noted, all lab tests performed by: Division of Pathology and Laboratory Medicine [address] [place] [address] [phone] * (ABNORMAL) Lipid panel (04/18/2023 2:50 PM HOT BRAIDER) Cholesterol Total 276(H) <=199 mg/dL 04/18/2023 4:02 PM HOT BRAIDER [facility] Comment: ATP III Classification of Total Cholesterol - Primary Target of Therapy (in mg/dL): <200 Desirable 200-239 Borderline high >=240 High Triglyceride 99 <=149 mg/dL 04/18/2023 4:02 PM [facility] Comment: ATP III Classification of Serum Triglycerides Primary Target of Therapy (in mg/dL): <150 Normal 150-199 Borderline high 200-499 High >=500 Very high Non-fasting triglycerides >200 mg/dL may be followed up with a fasting Lipid Panel. Calculated LDL-C may be falsely decreased when non-fasting triglycerides >200 mg/dL. HDL Cholesterol 95 >=40 mg/dL 04/18/2023 4:02 PM [facility] LDL Cholesterol 161(H) <=100 mg/dL 04/18/2023 4:02 PM [facility] Comment: ATP III Classification of LDL Cholesterol Primary Target of Therapy (in mg/dL): <100 Optimal 100-129 Near optimal/above optimal 130-159 Borderline high 160-189 High >=190 Very high Very Low Density Lipoprotein 20 mg/dL 04/18/2023 4:02 PM [facility] Is patient fasting? No 04/18/2023 4:02 PM [facility] Comment:last meal longer ray n than 4 hrs prior Blood Peripheral blood specimen / Unknown Venipuncture / Unknown 04/18/2023 2:50 PM HOT BRAIDER 04/18/2023 2:52 PM HOT BRAIDER Sindi Casiano MD LAB BLOOD ORDERABLES [facility] Unless otherwise noted, all lab tests performed by: Division of Pathology and Laboratory Medicine [address] [place] [id number] [facility] Unless otherwise noted, all lab tests performed by: Division of Pathology and Laboratory Medicine [address] [place] [address] [phone] * (ABNORMAL) POC Creatinine (04/16/2023 4:39 PM HOT BRAIDER) Only the most recent of2 resultswithin the time period is included. POC Creatinine 1.2 0.6 - 1.3 mg/dL 04/16/2023 4:41 PM HOT BRAIDER [facility] Comment:Medications, especia lly hydroxyurea or supplements, such as ascorbate, can interfere with test results causing a falsely and significantly higher result than expected. If a problem is suspected with a patient's result, a sample should be sent to the laboratory for confirmatory testing. POC eGFR 55(L) >=60 mL/min/1.7 3 sq. m 04/16/2023 4:41 PM HOT BRAIDER [facility] Comment: The eGFRcr is calculated with the 2020 CKD-EPI creatinine equation using creatinine, patient's age, and sex for adults 18 years of age and older. Other factors, especially muscle mass, may affect accuracy and need to be considered. According to the Kidney Disease: Improving Global Outcomes (KDIGO) CKD Work Group 2012 Clinical Practice Guideline, chronic kidney disease (CKD) is defined as the abnormalities of kidney structure or function, present for more than 3 months, with implications for health. CKD should be classified by cause, GFR category, and albuminuria category. KDIGO guidelines provide the following GFR categories. Stage / Description / GFR mL/min/1.73 m2: G1* / Normal or high / >= 90 G2* / Mildly decreased / 60-89 G3a / Mildly to moderately decreased / 45-59 G3b / Moderately to severely decreased / 30-44 G4 / Severely decreased / 15-29 G5 / Kidney failure / <15 *In the absence of evidence of kidney damage, neither G1 nor G2 fulfill criteria for CKD. Blood 04/16/2023 4:39 PM HOT BRAIDER 04/16/2023 4:41 PM HOT BRAIDER Narrative [facility] - 04/16/2023 4:41 PM HOT BRAIDER Method description: The i-STAT is an analyzer used for in vitro quantification of various analytes in whole blood. The device uses a single disposable cartridge which contains microfabricated sensors, a calibration solution, fluidics system, and a waste chamber. Each test cartridge contains chemically sensitive biosensors on a silicon chip that are configured to perform specific tests. The microfabricated sensors measure analyte concentration by an electrochemical assay. Dalia Weiner SUSANA POCT ORDERABLES - DEVICE [facility] Unless otherwise noted, all lab tests performed by: Division of Pathology and Laboratory Medicine [facility] [place] [address] * MRI Brain with and without Contrast - Frameless Gamma Knife (04/09/2023 8:55 AM HOT BRAIDER) Anatomical Region Laterality Modality Head Magnetic Resonan ce 04/09/2023 10:1 7 AM HOT BRAIDER Impressions 04/09/2023 10:38 AM HOT BRAIDER No new metastasis or leptomeningeal disease. Several lesions demonstrate interval progression with stability of many other enhancing lesions. ACTIONABLE ITEMS/RECOMMENDATIONS: None. Narrative 04/09/2023 10:38 AM HOT BRAIDER FULL RESULT: Examination: MRI BRAIN WITH AND WITHOUT CONTRAST - FRAMELESS GAMMA KNIFE on 04/09/2023 8:55 AM. CLINICAL HISTORY: Secondary malignant neoplasm of brain INDICATION: GK treatment planning; evaluate disease progression COMPARISON: Brain MRI performed 02/14/2023. TECHNIQUE: MRI of the brain without and with IV contrast was performed for radiation treatment planning. Findings: Non-irradiated Lesions: None. New Lesions: No new lesions are seen since prior study. Irradiated Lesions: There is overall stability of many enhancing lesions in the brain as annotated on series 9. There are a several lesions that have increased in size and that includes the right anterior cerebellar lesion (series 9, image number 52) that currently measures 4.5 mm, left superior cerebellar lesion that measures 4.5 mm (series 9, image number 57), left anterior temporal pole/medial temporal region that currently measures 1.6 cm (series 9, image number 72) and right periatrial region lesion that measures 2 cm (series 100, image number 196). There is no imaging evidence of leptomeningeal disease. Others: No acute hemorrhage. 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 No mass effect or midline shift. No hydrocephalus. There are no suspicious calvarial or skull base lesions. There is no sellar or suprasellar abnormalities. Procedure Note Anisa Valencia MD - 04/09/2023 FULL RESULT: Examination: MRI BRAIN WITH AND WITHOUT CONTRAST - FRAMELESS GAMMA KNIFEon 04/09/2023 8:55 AM. CLINICAL HISTORY: Secondary malignant neoplasm of brain INDICATION: GK treatment planning; evaluate disease progression COMPARISON: Brain MRI performed 02/14/2023. TECHNIQUE: MRI of the brain without and with IV contrast was performed forradiation treatment planning. Findings: Non-irradiated Lesions: None. New Lesions: No new lesions are seen since prior study. Irradiated Lesions: There is overall stability of many enhancing lesions in the brain asannotated on series 9. There are a several lesions that have increased insize and that includes the right anterior cerebellar lesion (series 9,image number 52) that currently measures 4.5 mm, left superior cerebellarlesion that measures 4.5 mm (series 9, image number 57), left anteriortemporal pole/medial temporal region that currently measures 1.6 cm(series 9, image number 72) and right periatrial region lesion thatmeasures 2 cm (series 100, image number 196). There is no imaging evidence of leptomeningeal disease. Others: No acute hemorrhage. Chronic right cerebral convexity subdural hematoma with maximal thicknessof 1.2 cm with regional mass effect upon the right parietal lobe. No mass effect or midline shift. No hydrocephalus. There are no suspicious calvarial or skull base lesions. There is no sellar or suprasellar abnormalities. IMPRESSION: No new metastasis or leptomeningeal disease. Several lesions demonstrate interval progression with stability of manyother enhancing lesions. ACTIONABLE ITEMS/RECOMMENDATIONS: None. Saira Carrasquillo APRN [facility] MRI ORDERABLES * MRI Brain with and without Contrast - ABTI (02/14/2023 11:23 AM HOT BRAIDER) Anatomical Region Laterality Modality Head Magnetic Resonan ce 02/17/2023 3:26 PM HOT BRAIDER Impressions 02/17/2023 3:53 PM HOT BRAIDER 1. 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 2. Left perfusion abnormalities expected for the relatively growing and enhancing right periatrial enhancing lesion, to be followed for active metastasis. 3. Other small enhancing lesions are stable. ACTIONABLE ITEMS/RECOMMENDATIONS: None. Narrative 02/17/2023 3:53 PM HOT BRAIDER FULL RESULT: Examination: MRI BRAIN W WO CONTRAST - ABTI on 02/14/2023 11:23 AM. CLINICAL HISTORY: Non-small cell lung cancer, brain metastases. INDICATION: progression of LT lobe lesion. RN Vs tumor. S/P [id number] COMPARISON: MRI brain 01/05/2023. TECHNIQUE: MRI brain without and with IV contrast was performed. Advanced brain tumor imaging (ABTI) sequences were also performed, including dynamic susceptibility contrast (DSC) perfusion imaging, dynamic contrast enhanced (DCE) perfusion imaging, arterial spin labeled (ASL) perfusion imaging, and single voxel magnetic resonance spectroscopy (MRS) with TE of 144 milliseconds. FINDINGS: Conventional MRI Brain: Location: Posttreatment changes: Expected post treatment changes are noted. FLAIR: There is no change in extent of nonenhancing FLAIR abnormality. No new sites of FLAIR abnormality. Enhancement: The medial left temporal lobe solidly enhancing nodular lesion measures 1.4 cm on image 77 of series, stable to slightly increased in size since 01/05/2023. The right periatrial enhancing lesion measures 1.7 cm on image 130 of series 16, slightly increased in size since 01/05/2023. Other enhancing lesions are stable on series 16. * 0.3 cm right cerebellar, image 62 * 0.4 cm left cerebellar, image 73 * 0.8 cm right anterior insula, image 131 * 0.6 cm right frontal, image 171 * 0.7 cm left frontal, image 178 Diffusion: There is no diffusion abnormality to suggest hypercellular tumor. Other: No significant hemorrhage is identified. No herniation is seen. Advanced Brain Tumor Imaging (ABTI): Magnetic resonance spectroscopy (MRS): Noncontributory due to artifact from the skull base at the left temporal lobe voxel. Perfusion Imaging: Dynamic susceptibility contrast (DSC): No new or nodule demonstrates increased perfusion. Right periatrial nodule demonstrates moderately elevated rim of perfusion. Dynamic contrast enhanced (DCE): Increased perfusion is seen in the left medial temporal lobe enhancing nodule on image 6 of series 1412. The right periatrial nodule demonstrates mildly elevated perfusion, not as high as the left nodule. Arterial spin labeled (ASL): Increased perfusion associated with the left medial temporal lobe nodule. No increased perfusion is associated with the right periatrial nodule. Procedure Note Aida Ortez MD - 02/17/2023 FULL RESULT: Examination: MRI BRAIN W WO CONTRAST - ABTI on 02/14/2023 11:23 AM. CLINICAL HISTORY: Non-small cell lung cancer, brain metastases. INDICATION: progression of LT lobe lesion. RN Vs tumor. S/P [id number] COMPARISON: MRI brain 01/05/2023. TECHNIQUE: MRI brain without and with IV contrast was performed. Advanced brain tumor imaging (ABTI) sequences were also performed,including dynamic susceptibility contrast (DSC) perfusion imaging, dynamiccontrast enhanced (DCE) perfusion imaging, arterial spin labeled (ASL)perfusion imaging, and single voxel magnetic resonance spectroscopy (MRS)with TE of 144 milliseconds. FINDINGS: Conventional MRI Brain: Location: Posttreatment changes: Expected post treatment changes are noted. FLAIR: There is no change in extent of nonenhancing FLAIR abnormality. Nonew sites of FLAIR abnormality. Enhancement: The medial left temporal lobe solidly enhancing nodularlesion measures 1.4 cm on image 77 of series, stable to slightly increasedin size since 01/05/2023. The right periatrial enhancing lesion measures1.7 cm on image 130 of series 16, slightly increased in size since01/05/2023. Other enhancing lesions are stable on series 16. * 0.3 cm right cerebellar, image 62 * 0.4 cm left cerebellar, image 73 * 0.8 cm right anterior insula, image 131 * 0.6 cm right frontal, image 171 * 0.7 cm left frontal, image 178 Diffusion: There is no diffusion abnormality to suggest hypercellulartumor. Other: No significant hemorrhage is identified. No herniation is seen. Advanced Brain Tumor Imaging (ABTI): Magnetic resonance spectroscopy (MRS): Noncontributory due to artifact from the skull base at the left temporallobe voxel. Perfusion Imaging: Dynamic susceptibility contrast (DSC): No new or nodule demonstrates increased perfusion. Right periatrial noduledemonstrates moderately elevated rim of perfusion. Dynamic contrast enhanced (DCE): Increased perfusion is seen in the left medial temporal lobe enhancingnodule on image 6 of series 1412. The right periatrial nodule demonstratesmildly elevated perfusion, not as high as the left nodule. Arterial spin labeled (ASL): Increased perfusion associated with the left medial temporal lobe nodule.No increased perfusion is associated with the right periatrial nodule. IMPRESSION: 1. Findings suspicious for active metastasis in the left medial temporallobe. 2. Left perfusion abnormalities expected for the relatively growing andenhancing right periatrial enhancing lesion, to be followed for activemetastasis. 3. Other small enhancing lesions are stable. ACTIONABLE ITEMS/RECOMMENDATIONS: None. Vicky Denise APRN IM[facility] MRI ORDERABLES * (ABNORMAL) .Serum Creatinine (11/29/2022 10:34 AM CDT) Only the most recent of3 resultswithin the time period is included. Creatinine 1.38(H) 0.51 - 0.95 mg/dL [facility] Blood 11/29/2022 10:3 4 AM CDT 11/29/2022 10:48 AM CDT Dalia Weiner APRN LAB BLOOD ORDERABL ES [facility] Unless otherwise noted, all lab tests performed by: Division of Pathology and Laboratory Medicine [address] [place] [id number] * (ABNORMAL) Glomerular Filtration Rate (11/29/2022 10:34 AM CDT) Only the most recent of3 resultswithin the time period is included. eGFR 46(L) >=60 mL/min/1.7 3 sq. m [facility] Comment: The eGFRcr is calculated with the 2020 CKD-EPI creatinine equation using creatinine, patient's age, and sex for adults 18 years of age and older. Other factors, especially muscle mass, may affect accuracy and need to be considered. According to the Kidney Disease: Improving Global Outcomes (KDIGO) CKD Work Group 2012 Clinical Practice Guideline, chronic kidney disease (CKD) is defined as the abnormalities of kidney structure or function, present for more than 3 months, with implications for health. CKD should be classified by cause, GFR category, and albuminuria category. KDIGO guidelines provide the following GFR categories Stage Description GFR mL/min/1.73 m2 G1* Normal or high >= 90 G2* Mildly decreased 60-89 G3a Mildly to moderately decreased 45-59 G3b Moderately to severely decreased 30-44 G4 Severely decreased 15-29 G5 Kidney failure <15 *In the absence of evidence of kidney damage, neither G1 nor G2 fulfill criteria for CKD. Blood 11/29/2022 10:3 4 AM CDT 11/29/2022 10:48 AM CDT Dalia Gabriel Husam MEZA LAB BLOOD ORDERABL ES Performing Organization Address City/[facility] Co de Phone Number [facility] Unless otherwise noted, all lab tests performed by: Division of Pathology and Laboratory Medicine [address] [place] [address] [phone] * BUN (11/29/2022 10:34 AM CDT) Only the most recent of3 resultswithin the time period is included. BUN 13 6 - 23 mg/dL [facility] Blood 11/29/2022 10:3 4 AM CDT 11/29/2022 10:48 AM CDT Dalia Nery Weiner APRN LAB BLOOD ORDERABL ES Performing Organization Address [facility] Co de Phone Number [facility] Unless otherwise noted, all lab tests performed by: Division of Pathology and Laboratory Medicine [address] [place] [address] [phone] * ALT (11/29/2022 10:34 AM CDT) Only the most recent of3 resultswithin the time period is included. ALT 7 <=33 U/L [facility] Blood 11/29/2022 10:3 4 AM CDT 11/29/2022 10:48 AM CDT Dalia Gabriel Husam DUMONTN LAB BLOOD ORDERABL ES Performing Organization Address City/[facility] Co de Phone Number [facility] Unless otherwise noted, all lab tests performed by: Division of Pathology and Laboratory Medicine [address] [place] [address] [phone] * Aspartate Aminotransferase (11/29/2022 10:34 AM CDT) Only the most recent of3 resultswithin the time period is included. AST 15 <=32 U/L [facility] Blood 11/29/2022 10:3 4 AM CDT 11/29/2022 10:48 AM CDT Dalia Weiner APRN LAB BLOOD ORDERABL ES Performing Organization Address [facility] Co de Phone Number [facility] Unless otherwise noted, all lab tests performed by: Division of Pathology and Laboratory Medicine [address] [place] [address] [phone] * Total Protein (11/29/2022 10:34 AM CDT) Only the most recent of3 resultswithin the time period is included. Total Protein 6.8 6.4 - 8.3 g/dL [facility] Blood 11/29/2022 10:3 4 AM CDT 11/29/2022 10:48 AM CDT Dalia Weiner APRN LAB BLOOD ORDERABL ES Performing Organization Address [facility] Co de Phone Number [facility] Unless otherwise noted, all lab tests performed by: Division of Pathology and Laboratory Medicine [address] [place] [address] [phone] * Alkaline Phosphatase (11/29/2022 10:34 AM CDT) Only the most recent of3 resultswithin the time period is included. Alk Phos 76 35 - 104 U/L [facility] Blood 11/29/2022 10:3 4 AM CDT 11/29/2022 10:48 AM CDT Dalia Weiner APRN LAB BLOOD ORDERABL ES Performing Organization Address City/[facility] Co de Phone Number [facility] Unless otherwise noted, all lab tests performed by: Division of Pathology and Laboratory Medicine [address] [place] [address] [phone] * (ABNORMAL) Glucose Level (11/29/2022 10:34 AM CDT) Only the most recent of3 resultswithin the time period is included. Glucose Level 61(L) 70 - 99 mg/dL [facility] Comment: Effective 10/13/15, the glucose reference intervals have been updated based on [place] Diabetes Association guidelines (Standards of Medical Care in Diabetes 2016. Diabetes Care 2016; 39: S13-S22). Fasting blood glucose: Normal: 70-99 mg/dL Impaired fasting glucose (increased risk for diabetes or pre-diabetes): 100- 125 mg/dL Diabetes mellitus: >/=126 mg/dL Random blood glucose: Normal: 70-199 mg/dL Note: Random glucose >100 mg/dL is associated with increased risk for diabetes Blood 11/29/2022 10:3 4 AM CDT 11/29/2022 10:48 AM CDT Dalia Weiner APRN LAB BLOOD ORDERABL ES Performing Organization Address City/[facility]/ZIP Co de Phone Number [facility] Unless otherwise noted, all lab tests performed by: Division of Pathology and Laboratory Medicine [address] [place] [address] [phone] * Calcium Level (11/29/2022 10:34 AM CDT) Only the most recent of3 resultswithin the time period is included. Calcium Lvl 9.2 8.4 - 10.2 mg/dL [facility] Blood 11/29/2022 10:3 4 AM CDT 11/29/2022 10:48 AM CDT Dalia Weiner APRN LAB BLOOD ORDERABL ES [facility] Unless otherwise noted, all lab tests performed by: Division of Pathology and Laboratory Medicine [address] [place] [address] [phone] * Albumin Level (11/29/2022 10:34 AM CDT) Only the most recent of3 resultswithin the time period is included. Albumin Lvl 4.1 3.5 - 5.2 gm/dL [facility] Blood 11/29/2022 10:3 4 AM CDT 11/29/2022 10:48 AM CDT [facility] CANTEEN OPERATOR LAB BLOOD ORDERABL ES Performing Organization Address [facility] de Phone Number [facility] Unless otherwise noted, all lab tests performed by: Division of Pathology and Laboratory Medicine [address] [place] [address] [phone] * (ABNORMAL) Electrolyte Panel (11/29/2022 10:34 AM CDT) Only the most recent of3 resultswithin the time period is included. Sodium Lvl 140 136 - 145 mEq/L [facility] Potassium Lvl 3.6 3.5 - 5.1 mEq/L [facility] Chloride 108(H) 98 - 107 mEq/L [facility] CO2 24 22 - 29 mEq/L [facility] Anion Gap 8 4 - 14 mEq/L [facility] Blood 11/29/2022 10:3 4 AM CDT 11/29/2022 10:48 AM CDT Daliajagdish Weiner CANTEEN OPERATOR LAB BLOOD ORDERABL ES Performing Organization Address [facility] Co de Phone Number [facility] Unless otherwise noted, all lab tests performed by: Division of Pathology and Laboratory Medicine [address] [place] [id number] after 08/13/2022 Advance Directives Documents on File Type Date Recorded Patient Text Transcriber Expl anation Advance Directives: Medical Power of Tests Superintendent 06/28/2023 Medical Power of Att orney * Full Code (Latest Code Status on File) Date Activated Date Inactivated Comments 07/31/2023 12:34 AM 08/11/2023 4:16 PM * Full Code Date Activated Date Inactivated Comments 07/24/2023 11:49 PM 07/29/2023 7:11 PM * Full Code Date Activated Date Inactivated Comments 07/03/2023 7:36 PM 07/07/2023 8:52 PM * Full Code Date Activated Date Inactivated Comments 06/27/2023 8:52 PM 07/01/2023 8:33 PM * Full Code Date Activated Date Inactivated Comments 10/18/2021 3:39 PM 10/21/2021 6:26 PM Care Teams Firer Retort Relationship Specialty Start Date End Date Luisana Lucio MD [address] [place] [phone] PCP - External Primary Care Provider Obstetrics/Gynecology 07/17/16 Roseann Jensen MD [address] [place] [address] [phone] PCP - External Referring Otolaryngology 07/19/16 Sindi Casiano MD [address] [place] [phone] PCP - General Thoracic Medicine 11/24/20 Ajith Fink MD [address] [place] [phone] Consulting Physician Nephrology 08/12/21 Annette Kang MD [address] [place] [address] [phone] Consulting Physician Gastroenterology, Hepatology and Nutrition 12/03/20 Frannie Emery MD [address] [place] [address] [phone] Consulting Physician Neurosurgery 05/21/23 Rajinder English APRN [address] [place] [address] [phone] Nurse Practitioner Neurosurgery 05/21/23
[2023-08-13] MEDS ORDERED: NA CHLORIDE 0.9% 1,000 ML ONE (19:51)
[2023-08-13] MEDS ORDERED: LEVETIRACETAM 500 MG/5 ML VIAL IV ONE (19:51)
[2023-08-13] MEDS ORDERED: NA CHLORIDE 0.9% 100 ML ONE (19:52)
--- NOTE | 2023-08-13 19:57 | ER ---
Nurse's Notes [facility] Name: Zari Posadas Age: 52 yrs Sex: Female : 1970 Arrival Date: 08/13/2023 Time: 19:16 Bed 5 Private MD: Diagnosis: Fall on same level, unspecified;Traumatic subdural hemorrhage-right sided;Weakness Presentation: 08/12 19:24 Chief complaint: EMS states: Pt was recently released from [facility]. She has a jb4 history of brain cancer. Her daughter reported that her mental state had been on the decline since here release. She has fallen 3 times today. Was hypotensive with a blood pressure in the 80's. She normally walks with a walker. Family is on the way. Coronavirus screen: At this time, the client does not indicate any symptoms associated with coronavirus-19. Ebola Screen: No symptoms or risks identified at this time. Initial Sepsis Screen: Does the patient meet any 2 criteria? No. Patient's initial sepsis screen is negative. Does the patient have a suspected source of infection? No. Patient's initial sepsis screen is negative. Risk Assessment: Do you want to hurt yourself or someone else? Patient reports no desire to harm self or others. Onset of symptoms was August 13, 2023. Transition of care: patient was not received from another setting of care. 19:24 Method Of Arrival: EMS: [facility] jb4 19:24 Acuity: TYSHAWN 2 jb4 Triage Assessment: 20:20 General: Appears in no apparent distress. Behavior is calm, cooperative. Pain:. Neuro: kd3 Level of Consciousness is awake, alert, obeys commands, Oriented to person, place. MIXER RUNNER: 21:23 unknown kd3 Historical: - Allergies: 19:27 ambien; jb4 - Home Meds: 19:27 Keppra Oral [Active]; Nystatin Oral [Active]; jb4 19:31 Zofran Oral [Active]; pantoprazole oral [Active]; menthol-zinc oxide topical [Active]; jb4 - PMHx: 19:27 Lung Cancer; Brain Cancer (Lung Cancer); jb4 - Immunization history:: Adult Immunizations up to date. - Infectious Disease History:: Denies. - Social history:: Smoking status: Patient denies any tobacco usage or history of. Screenin:17 [facility] ED Fall Risk Assessment (Adult) History of falling in the last 3 months, kd3 including since admission Yes- fall prone (multiple falls) (3 pts) Confusion or Disorientation Yes (5 pts) Intoxicated or Sedated No (0 pts) Impaired Gait Yes (1 pt) Mobility Assist Device Used No (0 pt) Altered Elimination No (0 pt) Score/Fall Risk Level 3 or more points = High Risk Maintained a safe environment, Educated pt \T\ family on fall prevention, incl call for assistance when getting out of bed, Assessed \T\ reinforced patient's understanding of fall precautions, Provided non-skid footwear, Hourly rounding (assess needs \T\ fall precautionary measures) done, Used ambulatory aids as needed (educated on \T\ assisted with), Used gait belt as appropriate. Abuse screen: Denies threats or abuse. Denies injuries from another. 21:23 Nutritional screening: No deficits noted. kd3 21:23 Tuberculosis screening: No symptoms or risk factors identified. kd3 Assessment: 20:16 Neuro: Level of Consciousness is awake, alert, obeys commands, Oriented to person, kd3 place. Respiratory: Airway is patent Trachea midline Respiratory effort is even, unlabored, Respiratory pattern is regular, symmetrical. 21:16 General: Report called to [facility] Abhinav CARABALLO. . kd3 Vital Signs: 19:24 BP 97 / 71; Pulse 87; Resp 16; Temp 99.1; Pulse Ox 100% on R/A; Weight 68.95 kg (M); jb4 20:10 Pulse 90; Resp 16; Pulse Ox 100% on R/A; kd3 21:19 BP 111 / 73; Pulse 77; Resp 19; Pulse Ox 98% on R/A; kd3 ED Course: 19:18 Patient arrived in ED. jj6 19:19 Axel Weiner MD is Attending Physician. sudhakar 19:27 Triage completed. jb4 19:31 Ml Wall, RASHMI is Primary Nurse. kd3 19:31 Arm band placed on right wrist. jb4 19:48 CT Traumagram (Head C Spine CAP wo con) In Process Unspecified. EDMS 20:09 Lactate w/ 2H reflex if indic. Sent. kd3 20:09 Blood Culture Adult (2) Sent. kd3 20:09 Lipase Sent. kd3 20:09 Basic Metabolic Panel Sent. kd3 20:09 CBC with Diff Sent. kd3 20:09 LFT's Sent. kd3 20:09 Magnesium Sent. kd3 20:09 NT PRO-BNP Sent. kd3 20:09 PT-INR Sent. kd3 20:09 Troponin HS Sent. kd3 20:10 No provider procedures requiring assistance completed. Inserted saline lock: 22 gauge kd3 in right antecubital area, using aseptic technique. Blood collected. Maintain EMS IV. Dressing intact. Good blood return noted. Site clean \T\ dry. Gauge \T\ site: 20 gauge left A/C. 20:15 Initated transfer to [facility] spoke with Jazmin Newsome/ Accepting Dr frey .Dante Mueller to ER. 20:19 SARS RAPID Sent. kd3 20:19 Flu Sent. kd3 20:19 Lactate w/ 2H reflex if indic. Sent. kd3 20:19 Blood Culture Adult (2) Sent. kd3 20:19 Troponin HS Sent. kd3 20:19 PT-INR Sent. kd3 20:19 NT PRO-BNP Sent. kd3 20:19 Magnesium Sent. kd3 20:19 CBC with Diff Sent. kd3 20:19 Basic Metabolic Panel Sent. kd3 20:19 Initial lab(s) drawn, by fl, sent to lab. First set of blood cultures drawn by me, kd3 Second set of blood cultures drawn by me, EKG done, by ED staff, reviewed by Axel Weiner MD. 21:00 spoke with [facility] to transport eta 30 mins. vk 21:20 Patient has correct armband on for positive identification. Provided Education on: kd3 transfer. 21:23 Patient transferred, IV remains in place. kd3 Administered Medications: 20:06 Drug: Keppra IV 500 mg IV at per protocol once Route: IV; Rate: per protocol; Site: bm8 right antecubital; 20:07 Drug: NS 0.9% IV 1000 ml IV at 1 bolus Per protocol; 1000 mL bolus Route: IV; Rate: 1 bm8 bolus; Site: right antecubital; Medication: 20:20 VIS not applicable for this client. kd3 Outcome: 19:57 ER care complete, transfer ordered by MD. de la fuente 21:23 Transferred by ground EMS kd3 21:23 Condition: stable 21:23 Discharge instructions given to patient, family, Instructed on the need for transfer, Demonstrated understanding of instructions, follow-up care, 21:24 Patient left the ED. kd3 Signatures: Dispatcher [employer] Axel Fwoler MD MD cha Bryson, James, RN RN jb4 Lizbeth Chavira6 Ml Wall RN RN kd3 Nedra Soto Brad RN RN bm8
--- NOTE | 2023-08-13 19:58 | EDPHYS ---
Physician Documentation [facility] Name: Zari Posadas Age: 52 yrs Sex: Female : 1970 Arrival Date: 08/13/2023 Time: 19:16 Bed 5 Private MD: ED Physician Axel [facility] HPI: 08/12 19:49 This 52 yrs old Female presents to ER via EMS with complaints of Fall Injury, sudhakar Head Injury Without LOC-Adult. 19:49 Details of fall: The patient fell from an upright position, while standing, while sudhakar walking. Onset: The symptoms/episode began/occurred 3 day(s) ago. Associated injuries: The patient sustained injury to the head. Severity of symptoms: At their worst the symptoms were mild, in the emergency department the symptoms are unchanged. The patient has experienced similar episodes in the past, several times. SHOT LIGHTER: 21:23 unknown kd3 Historical: - Allergies: 19:27 ambien; jb4 - Home Meds: 19:27 Keppra Oral [Active]; Nystatin Oral [Active]; jb4 19:31 Zofran Oral [Active]; pantoprazole oral [Active]; menthol-zinc oxide topical [Active]; jb4 - PMHx: 19:27 Lung Cancer; Brain Cancer (Lung Cancer); jb4 - Immunization history:: Adult Immunizations up to date. - Infectious Disease History:: Denies. - Social history:: Smoking status: Patient denies any tobacco usage or history of. ROS: 19:50 Constitutional: Negative for fever, chills, and weight loss, Eyes: Negative for injury, sudhakar pain, redness, and discharge, ENT: Negative for injury, pain, and discharge, Neck: Negative for injury, pain, and swelling, Cardiovascular: Negative for chest pain, palpitations, and edema, Respiratory: Negative for shortness of breath, cough, wheezing, and pleuritic chest pain, Back: Negative for injury and pain, : Negative for injury, bleeding, discharge, and swelling, MS/Extremity: Negative for injury and deformity, Skin: Negative for injury, rash, and discoloration, Psych: Negative for depression, anxiety, suicide ideation, homicidal ideation, and hallucinations, Allergy/Immunology: Negative for hives, rash, and allergies, Endocrine: Negative for neck swelling, polydipsia, polyuria, polyphagia, and marked weight changes, Hematologic/Lymphatic: Negative for swollen nodes, abnormal bleeding, and unusual bruising, 19:50 Abdomen/GI: Positive for nausea, anorexia, 19:50 Neuro: Positive for altered mental status, weakness, Exam: 19:50 Constitutional: This is a well developed, well nourished patient who is awake, alert, sudhakar and in no acute distress. Head/Face: Normocephalic, atraumatic. Eyes: Pupils equal round and reactive to light, extra-ocular motions intact. Lids and lashes normal. Conjunctiva and sclera are non-icteric and not injected. Cornea within normal limits. Periorbital areas with no swelling, redness, or edema. ENT: Nares patent. No nasal discharge, no septal abnormalities noted. Tympanic membranes are normal and external auditory canals are clear. Oropharynx with no redness, swelling, or masses, exudates, or evidence of obstruction, uvula midline. Mucous membranes moist. Neck: Trachea midline, no thyromegaly or masses palpated, and no cervical lymphadenopathy. Supple, full range of motion without nuchal rigidity, or vertebral point tenderness. No Meningismus. Chest/axilla: Normal chest wall appearance and motion. Nontender with no deformity. No lesions are appreciated. Cardiovascular: Regular rate and rhythm with a normal S1 and S2. No gallops, murmurs, or rubs. Normal PMI, no JVD. No pulse deficits. Respiratory: Lungs have equal breath sounds bilaterally, clear to auscultation and percussion. No rales, rhonchi or wheezes noted. No increased work of breathing, no retractions or nasal flaring. Abdomen/GI: Soft, non-tender, with normal bowel sounds. No distension or tympany. No guarding or rebound. No evidence of tenderness throughout. Back: No spinal tenderness. No costovertebral tenderness. Full range of motion. Skin: Warm, dry with normal turgor. Normal color with no rashes, no lesions, and no evidence of cellulitis. MS/ Extremity: Pulses equal, no cyanosis. Neurovascular intact. Full, normal range of motion. Psych: Awake, alert, with orientation to person, place and time. Behavior, mood, and affect are within normal limits. 19:50 ECG was reviewed by the Attending Physician. Vital Signs: 19:24 BP 97 / 71; Pulse 87; Resp 16; Temp 99.1; Pulse Ox 100% on R/A; Weight 68.95 kg (M); jb4 20:10 Pulse 90; Resp 16; Pulse Ox 100% on R/A; kd3 21:19 BP 111 / 73; Pulse 77; Resp 19; Pulse Ox 98% on R/A; kd3 MDM: 19:19 Patient medically screened. sudhakar 19:51 Differential Diagnosis altered mental status, sepsis, flu. Differential diagnosis: sudhakar closed head injury, contusion, multiple trauma, sprain, strain, CVA, electrolyte abnormality, hypoglycemia, intracranial bleed, pneumonia, seizure, TIA, UTI, volume depletion. Data reviewed: vital signs, nurses notes, EMS record, lab test result(s), EKG, radiologic studies, CT scan, plain films. Consideration of Admission/Observation Patient was admitted/placed on observation. Escalation of care including admission/observation considered. I considered the following discharge prescriptions or medication management in the emergency department Medications were administered in the Emergency Department. See MAR. Independent interpretation of the following test(s) in the Emergency Department EKG: See my EKG interpretation above. Test considered but Not performed: MRI: no mri brain. Historians other than the Patient: EMS: ems well informed. Care significantly affected by the following chronic conditions: Cancer, lung, brain cancer on oral chem. Counseling: I had a detailed discussion with the patient and/or guardian regarding the historical points, exam findings, and any diagnostic results supporting the discharge/admit diagnosis, lab results, radiology results. 08/12 19:24 Order name: Basic Metabolic Panel; Complete Time: 20:45 [facility] 08/12 19:24 Order name: CBC with Diff [facility] 08/12 19:24 Order name: LFT's; Complete Time: 20:45 [facility] 08/12 19:24 Order name: Magnesium; Complete Time: 20:45 [facility] 08/12 19:24 Order name: NT PRO-BNP; Complete Time: 20:45 [facility] 08/12 19:24 Order name: PT-INR; Complete Time: 21:13 [facility] 08/12 19:24 Order name: Troponin HS; Complete Time: 20:45 [facility] 08/12 19:24 Order name: Lipase; Complete Time: 20:45 [facility] 08/12 19:24 Order name: Urinalysis w/ reflexes; Complete Time: 21:13 [facility] 08/12 19:24 Order name: Blood Culture Adult (2) [facility] 08/12 19:24 Order name: Lactate w/ 2H reflex if indic.; Complete Time: 20:34 [facility] 08/12 19:24 Order name: Flu; Complete Time: 21:13 [facility] 08/12 19:24 Order name: SARS RAPID; Complete Time: 21:13 [facility] 08/12 21:08 Order name: CBC Smear Scan [facility] 08/12 19:24 Order name: CT Traumagram (Head C Spine CAP wo con); Complete Time: 20:13 [facility] 08/12 19:24 Order name: EKG; Complete Time: 19:24 [facility] 08/12 19:24 Order name: Cardiac monitoring; Complete Time: 20:06 [facility] 08/12 19:24 Order name: EKG - Nurse/Tech; Complete Time: 19:47 [facility] 08/12 19:24 Order name: IV Saline Lock; Complete Time: 20:06 [facility] 08/12 19:24 Order name: Labs collected and sent; Complete Time: 20:06 [facility] 08/12 19:24 Order name: O2 Per Protocol; Complete Time: 20:06 [facility] 08/12 19:24 Order name: O2 Sat Monitoring; Complete Time: 20:06 [facility] 08/12 19:24 Order name: Seizure Precautions; Complete Time: 20:07 [facility] EC:50 Rate is 96 beats/min. Rhythm is regular. QRS [place] is Normal. AK interval is normal. QRS sudhakar interval is normal. QT interval is normal. No Q waves. T waves are Normal. No ST changes noted. Clinical impression: NSR w/ Non-specific ST/T Changes and No evidence of ischemia. Interpreted by me. Reviewed by me. Administered Medications: 20:06 Drug: Keppra IV 500 mg IV at per protocol once Route: IV; Rate: per protocol; Site: bm8 right antecubital; 20:07 Drug: NS 0.9% IV 1000 ml IV at 1 bolus Per protocol; 1000 mL bolus Route: IV; Rate: 1 bm8 bolus; Site: right antecubital; Disposition Summary: 08/13/23 19:57 Transfer Ordered Notes: Transfer Location: [facility] sudhakar Reason: Higher level of care sudhakar Condition: Fair sudhakar Problem: new sudhakar Symptoms: have improved sudhakar Accepting Physician: to [facility](08/13/23 21:24) kd3 Diagnosis - Fall on same level, unspecified sudhakar - Traumatic subdural hemorrhage - right sided sudhakar - Weakness sudhakar Forms: - Medication Reconciliation Form sudhakar - SBAR form sudhakar Signatures: Dispatcher [employer] EDMS Axel Weiner MD MD cha Bryson, James, RN RN jb4 Ml Wall, RN RN kd3 Cate Story PA-C PAZay park4 Vijay Rogers, RN RN bm8 Corrections: (The following items were deleted from the chart) 19:25 19:25 BLOOD CULTURE*+BA.LAB.BRZ ordered. EDMS EDMS 19:25 19:25 LACTATE+C.LAB.BRZ ordered. EDMS EDMS 19:25 19:25 Influenza Screen (A \T\ B)+BA.LAB.BRZ ordered. EDMS EDMS 19:25 19:25 SARS-COV-2 Antigen Rapid+I.LAB.BRZ ordered. EDMS EDMS 20:11 19:24 Chest Single View+RAD.RAD.BRZ ordered. EDMS EDMS 21:24 19:57 to [facility] kd3
--- NOTE | 2023-08-13 20:10 | RAD REPORT ---
EXAM DESCRIPTION: CT - Head C Spine Cap Wo Con - 08/13/2023 7:47 pm CLINICAL HISTORY: Trauma, head and neck injury. Chest, abdomen and pelvis pain. DIZZINESS COMPARISON: CTANGIO CHEST FOR PE dated 05/20/2014 TECHNIQUE: CT head without contrast. CT cervical spine without contrast with coronal and sagittal reformatted images. CT chest, abdomen and pelvis without contrast with coronal and sagittal reformatted images of the spi ne. All CT scans are performed using dose optimization technique as appropriate and may include automated exposure control or mA/KV adjustment according to patient size. FINDINGS: CT HEAD WITHOUT CONTRAST: Small right-sided subdural hematoma measuring 9 millimeters in maximal thickness. Most of the hematom a is near CSF attenuation but there is a small hyperattenuating portion dorsally. No areas of brain edema or midline shift. Left temporal lobe encephalomalacia. Chronic small vessel ischemic changes. L eft frontoparietal craniotomy. Chronic small vessel ischemic changes. Cerebral atrophy. Left mastoid fluid. The calvarium is intact. Paranasal sinus thickening . CT CERVICAL SPINE WITHOUT CONTRAST: No fracture or subluxation. The prevertebral soft tissues are normal in thickness. CT CHEST, ABDOMEN, PELVIS WITHOUT CONTRAST: NOTE: Lack of contrast is a significant limitation in the assessment of trauma related findings. Spec ifically, solid organ, vascular and bowel evaluation is significantly limited. Motion artifact. Patchy areas of ground-glass attenuation is nonspecific. It could be secondary to hy poventilation or nonspecific pneumonitis. . Small pulmonary nodules are noted but not well assessed d ue to motion. No dominant lesion is seen.No pneumothorax or pericardial/pleural fluid. Gastric bandin g. Moderate colonic stool. No evidence of intra-abdominal visceral injury, free fluid or free air is seen within the above detai led limitations. No concerning pelvic findings. No fractures. IMPRESSION: 1. Small right frontoparietal subdural hematoma measuring less than 1 cm in maximal thic kness. It has mixed attenuation and could be acute on subacute or acute on chronic. Conveyed to Dr. Shelby gorman by Dr. Santiago at 1954 on 08/13/23. 2. No acute fracture traumatic malalignment of the cervical spine. 3. No evidence of significant acute trauma doses common, or pelvis. Nonspecific ground-glass opacitie s in the lungs bilaterally could reflect pneumonitis or hypoventilation. Evaluation is limited due to motion. Follow-up imaging or comparison with any prior outside imaging would be helpful.
[2023-08-13 20:11] LABS: Absolute Basophils 0.1 K/uL (0-0.5); Absolute Eosinophils 0.1 K/uL (0-0.5); Absolute Lymphocytes (CBC) 0.9 K/uL (0.7-4.9); Absolute Monocytes 0.9 K/uL (0.1-1.3); Absolute Neutrophil 11.9 K/uL (1.8-8.0); Basophils % 0.4 % (0-1.3); Eosinophils % 1.1 % (0-4.4); Hematocrit 30.8 % (36.0-45.0); Hemoglobin 9.9 g/dL (12.0-15.0); Lymphocytes % 6.3 % (15.3-44.8); MCH 29.5 pg (27.0-35.0); MCV 92.1 fL (80-100); MPV 7.4 fL (7.6-11.3); Monocytes % 6.6 % (3.3-12.3); Neutrophils % 85.6 % (41.7-73.7); Platelets 478 thou/uL (152-406); RBC Red Blood Cell Count 3.34 M/uL (3.86-4.86); Red Cell Distribution Width 17.1 % (12.1-15.2)
[2023-08-13 20:38] LABS: ALT/SGPT 17 U/L (13-56); Albumin/Globulin Ratio 0.7 (1.1-1.8); Alkaline Phosphatase 104 U/L (45-117); Anion Gap 8.6 mEq/L (5.0-15.0); BUN Blood Urea Nitrogen 11 mg/dL (7-18); Bicarbonate 27 mEq/L (21-32); Bilirubin Total 0.3 mg/dL (0.2-1.0); Globulin 4.3 g/dL (2.3-3.5); Glomerular Filtration Rate 81 ml/min (=/>90); Glucose Level 94 mg/dL (74-106); Lipase 166 U/L (13-75); Magnesium 2.6 mg/dL (1.6-2.4); NT PRO-BNP 9691 pg/mL (<125); Potassium 3.6 mEq/L (3.5-5.1); Protein, Total 7.3 g/dL (6.4-8.2); Sodium Level 135 mEq/L (136-145); Troponin High Sensitivity 14.8 pg/mL (<58.9)
[2023-08-13 20:43] LABS: AST/SGOT < 10 U/L (15-37); Bilirubin Direct < 0.2 mg/dL (0-0.2); Bilirubin Indirect, Calculated 0.1 mg/dL (0.2-0.8)
[2023-08-13 20:50] LABS: SARS-CoV-2 Antigen CONTROL BLUE LINE VIS/BG OK; SARS-CoV-2 Antigen Rapid Res Negative (Negative)
[2023-08-13 20:50] LABS: PT Prothrombin Time 14.5 SECONDS (9.5-12.5); Protime INR 1.33
[2023-08-13 21:06] LABS: Sqamous Epithelial <5 /HPF (None Seen); Urine Bacteria None Seen /HPF (<20); Urine Bilirubin NEGATIVE (Negative); Urine Blood Trace (Negative); Urine Clarity Clear (Clear); Urine Color Light-Yellow (Yellow); Urine Culture Reflex Order NOT NEEDED; Urine Glucose NEGATIVE (Negative); Urine Ketones NEGATIVE (Negative); Urine Microscopic Reflex YN ORDER UMIC; Urine Mucus Slight /HPF (None Seen); Urine Nitrite NEGATIVE (Negative); Urine Protein NEGATIVE (Negative); Urine RBC <5 /HPF (None Seen); Urine Urobilinogen Normal (Normal); Urine WBC <5 /HPF (<5); Urine pH 6.5 (5.0-7.0)
[2023-08-13 21:53] LABS: Anisocytosis 2+; Blood Morphology Comment NOTED (NOT SEEN); Hypochromasia 2+; Platelet Estimate ADEQ; White Blood Cell Scan OK (OK)
[2023-08-13 22:10] VITALS: BP 111/73; TEMP 99.1; O2SAT 98
--- NOTE | 2023-08-14 14:12 | EKG ---
Test Date: 2023-08-13 Test Time: 19:36:06 Thermospray Operator: TRESA MEASUREMENT RESULTS: Intervals: Rate: 96 TX: 142 QRSD: 80 QT: 364 QTc: 459 [place]: P: 21 TX: 142 QRS: -10 T: 71 INTERPRETIVE STATEMENTS: Normal sinus rhythm Possible Left atrial enlargement Borderline ECG Compared to ECG 07/09/2020 13:06:41 Sinus bradycardia no longer present ST (T wave) deviation no longer present Electronically Signed On 08-14-23 14:09:56 CDT by Marshal Mendoza
== END 2023-08-13 21:24 | disposition short-term general hospital (02) ==
LOC: ER 19:16
DX: S06.5X0A Traumatic subdural hemorrhage without loss of consciousness, initial encounter (principal); R53.1 Weakness; W18.30XA Fall on same level, unspecified, initial encounter; Z11.52 Encounter for screening for COVID-19; Z85.841 Personal history of malignant neoplasm of brain; Z85.118 Personal history of other malignant neoplasm of bronchus and lung
CPT/HCPCS: 93005; 87040 ×2; 85025; 81001; 80048; 36415; 83735; 85610; 80076; 83605; 84484; 83690; 83880; 87804 ×2; 70450; 71250; 72125; 96374; 99285; 87811; J1953; J7030

== ENCOUNTER 2023-09-26 15:31 | Emergency (ER) | payer OTHER ==
--- OUTSIDE RECORDS SUMMARY | 2023-09-26 15:37 | XMS REPORT | Clinical Summary ---
Author Name Unknown Organization [facility] Address [address] [place] [address] Care Team Providers Care Order Taker Name Role Phone Luisana Lucio MD Unavailable [phone] Roseann Jensen MD Unavailable [phone] Sindi Casiano MD Primary Care Provider [phone] Ajith Fink MD Unavailable Annette Kang MD Unavailable [phone] Frannie Emery MD Unavailable [phone] Rajinder English APRN Unavailable Allergies Active Allergy [...] hallucination,Ane sully of chronic disease,Seizure, not otherwise specified,Md Allergy Immunology y hallucination,Sub dural hematoma <Subsequent>,Emily gnant neoplasm related fatigue,Lesion of brain,Chronic diarrhea,Generali zed muscle weakness,Other low back pain,Lymphocytic colitis,Malignant neoplasm of thyroid gland,Hypokalemia Take 1 capsule (150 mg) by mouth daily. 30 capsule 07/29/19 24 Active levETIRAcetam (KEPPRA) 1000 mg tabletIndications :Non-small cell carcinoma of lung, TNM stage 4,Secondary malignant neoplasm of brain,Clostridium difficile diarrhea,Non-smal l cell carcinoma of lung, TNM stage 4 <Unspecified side>,Malignant neoplasm of unspecified part of unspecified bronchus or lung,Clostridium difficile colitis,Visual hallucination,Ane sully of chronic disease,Seizure, not otherwise specified,Md Allergy Immunology y hallucination,Sub dural hematoma <Subsequent>,Emily gnant neoplasm [...] if no BM 60 capsule 07/01/19 24 024 Discontinued(St op Taking at [...] approximately 30 seconds. 300 mL 07/07/19 24 04/29/2 024 mesalamine (LIALDA) 1.[address] tabletIndications :Diarrhea,Lymphoc ytic colitis Take 2 tablets (2,400 mg) by mouth twice daily for 90 days. 360 tablet 07/20/19 24 024 Discontinued(St op Taking at Discharge) fidaxomicin (Dificid) 200 mg tabletIndications :Clostridium difficile diarrhea Take 1 tablet (200 mg) by mouth twice daily for 10 days. 20 tablet 07/26/19 24 024 Discontinued(St op Taking at Discharge) cholestyramine (QUESTRAN) 4 g packetIndications :Secondary malignant neoplasm of brain,Non-small cell carcinoma of lung, TNM stage 4,Clostridium difficile diarrhea,Non-smal l cell carcinoma of lung, TNM stage 4 <Unspecified side>,Malignant neoplasm of unspecified part of unspecified bronchus or lung,Clostridium difficile colitis,Visual hallucination,Ane sully of chronic disease,Seizure, not otherwise specified,Md Allergy Immunology y hallucination,Sub dural hematoma <Subsequent>,Emily gnant neoplasm related fatigue,Lesion of brain,Chronic diarrhea,Generali zed muscle weakness,Other low back pain,Lymphocytic colitis,Malignant neoplasm of thyroid gland,Hypokalemia Take 1 packet (4 g) by mouth twice daily for 30 days. Mix powder in 4 ounces of juice. 60 packet 07/29/19 24 024 levETIRAcetam (KEPPRA) 750 mg tabletIndications :Secondary malignant neoplasm of brain,Non-small cell carcinoma of lung, TNM stage 4,Clostridium difficile diarrhea,Non-smal l cell carcinoma of lung, TNM stage 4 <Unspecified side>,Malignant neoplasm of unspecified part of unspecified bronchus or lung,Clostridium difficile colitis,Visual hallucination,Ane sully of chronic disease,Seizure, not otherwise specified,Md Allergy Immunology y hallucination,Sub dural hematoma <Subsequent>,Emily gnant neoplasm related fatigue,Lesion of brain,Chronic diarrhea,Generali zed muscle weakness,Other low back pain,Lymphocytic colitis,Malignant neoplasm of thyroid gland,Hypokalemia Take 1 tablet (750 mg) by mouth twice daily for 30 days. 60 tablet 07/29/19 24 024 Discontinued(Re order) mesalamine (LIALDA) 1.[address] tabletIndications :Secondary malignant neoplasm of brain,Non-small cell carcinoma of lung, TNM stage 4,Clostridium difficile diarrhea,Non-smal l cell carcinoma of lung, TNM stage 4 <Unspecified side>,Malignant neoplasm of unspecified part of unspecified bronchus or lung,Clostridium difficile colitis,Visual hallucination,Ane sully of chronic disease,Seizure, not otherwise specified,Md Allergy Immunology y hallucination,Sub dural hematoma <Subsequent>,Emily gnant neoplasm related fatigue,Lesion of brain,Chronic diarrhea,Generali zed muscle weakness,Other low back pain,Lymphocytic colitis,Malignant neoplasm of thyroid gland,Hypokalemia Take 4 tablets (4.8 g) by mouth daily with breakfast for 30 days. 120 tablet 07/30/19 24 024 fidaxomicin (DIFICID) 200 mg tabletIndications :Secondary malignant neoplasm of brain,Non-small cell carcinoma of lung, TNM stage 4,Clostridium difficile diarrhea,Non-smal l cell carcinoma of lung, TNM stage 4 <Unspecified side>,Malignant neoplasm of unspecified part of unspecified bronchus or lung,Clostridium difficile colitis,Visual hallucination,Ane sully of chronic disease,Seizure, not otherwise specified,Md Allergy Immunology y hallucination,Sub dural hematoma <Subsequent>,Emily gnant neoplasm [...] Overview: Added automatically from request for surgery [id number] Lymphocytic colitis 10/20/2021 Acute renal failure syndrome [...] Overview: Added automatically from request for surgery [id number] Chronic diarrhea 12/03/2020 Overview: Added automatically from request for surgery [id number] Lesion of brain 02/03/2020 Overview: Added automatically from request for surgery [id number] Hypokalemia 01/31/2020 Disorder of fluid AND/OR electrolyte 01/31/2020 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 disease 0 Cerebral edema 01/30/2020 Secondary malignant neoplasm of brain 01/30/2020 Aphasia 01/30/2020 Depressive disorder 01/30/2018 Non-small cell carcinoma of lung, TNM stage 4 Dysphagia 07/31/2016 Choking 07/31/2016 Thyroid cancer 07/31/2016 Overview: Mandatory [facility] ICD-10 2020 UPDATE Other psychological or physi pito stress, not elsewhere classified Malignant neoplasm related fatigue Abnormal gait due to muscle weakness Rhabdomyolysis Encounters Date Type Department Care Team Description 09/10/2023 Orders Only Abdominal Imaging [address] [place] [address] Padmini Morelos APRN 09/10/2023 Orders Only [facility] Treatment [facility] [address] [facility] Main [facility]g, 1st [place] [address] Vicky Denise, MODEL MAKING SUPERVISOR Secondary malignant neoplasm of brain (Primary Dx) 09/10/2023 Documentation Radiation Treatment Center [address] [facility] Main Bldg, 1st [place] [address] Vicky Denise, MODEL MAKING SUPERVISOR 09/05/2023 Orders Only Thoracic Center - Medical Oncology [facility] [facility] Main Bldg, 9th [place] [address] Dalia Weiner, MODEL MAKING SUPERVISOR Non-small cell carcinoma of lung, TNM stage 4 <Unspecified side> (Primary Dx) 09/04/2023 11:00 AM CDT Telemedicine [facility] - Neurosurgery [facility] [facility] Main Bldg, 7th [place] [address] Frannie Emery MD Secondary malignant neoplasm of brain (Primary Dx) 09/03/2023 11:59 PM CDT Anesthesia Event Diagnostic Imaging Center [facility] [facility] Main Bldg, 3rd [place] [address] Lima Zavala MD 08/31/2023 4:49 PM CDT Anesthesia Event Perioperative Evaluation [facility] Management [facility] [address] [place] [address] Main Bldg, 6th [place] [address] Francoise Michael RN 08/31/2023 4:30 PM CDT POEM Appointments Per[facility] Management [facility] [address] [place] [address] Main Bldg, 6th [place] [address] Sindi Casiano MD 08/29/2023 [facility] - Medical Oncology [facility] [facility] Main Bldg, 9th [place] [address] Lorenza Taylor RN 08/24/2023 Case Management Case Management [address] [place] [address] Ashlyn Hernandez RN 08/23/2023 Orders Only Thoracic Center - Medical Oncology [address] [place] [address], 9th [place] [address] Dalia Weiner, MODEL MAKING SUPERVISOR Non-small cell carcinoma of lung, TNM stage 4 <Unspecified side> (Primary Dx) 08/23/2023 Case Management Case Management [address] [place] [address] Ashlyn Hernandez RN 08/08/2023 10:12 AM CDT Anesthesia Event Diagnostic Imaging Center [address] [place] [address], 3rd [place] [address] Nedra Oscar MD Thomas, Cini, SUSANA,COMPUTER NUMERICAL CONTROL MACHINIST 07/31/2023 Travel 07/30/2023 8:38 PM CDT - 08/11/2023 2:13 PM CDT Hospital Encounter MAIN [address] [place] [address] Shadia Clement MD Gao, MD Jalen Cunningham Maria, MD Leung, Cerena, MD Tanwir, Hira, [...] [facility] - Gastroenterology, Hepatology & Nutrition [address] [place] [address], 7th [place] [address] Mounika Caballero APRN 07/30/2023 Case Management Case Management [address] [place] [address] Johnie Velasco RN 07/27/2023 Orders Only Clinical Pharmacy [address] [place] [address], 2nd [place] [address] Jonathan Mohr [facility] 07/26/2023 9:54 AM CDT Anesthesia Event Diagnostic Imaging Center [address] [place] [address], 3rd [place] [address] Elisa Reyes CRNA 07/26/2023 Orders Only [facility] Spine Center - Neuro Oncology [address] [place] [address], 7th [place] [address] Suzi Dias DO Seizure, not otherwise specified (Primary Dx) 07/25/2023 Travel 07/24/2023 8:53 PM CDT - 07/29/2023 5:11 PM CDT Hospital Encounter MAIN [address] [place] [address] Shadia Clemetn MD Gao, Lucy C, MD Franco Vega, [...] 07/24/2023 Travel 07/24/2023 Case Management Case Management [address] [place] [address] Johnie Velasco, RN 07/23/2023 10:45 AM CDT Ancillary Procedure CT Imaging [facility], [address] [place], [place] [address] [address] Dalia Weiner APRN Non-small cell carcinoma of lung, TNM stage 4 <Unspecified side> 07/23/2023 9:15 AM CDT - 07/23/2023 11:59 PM CDT Hospital Encounter Diagnostic Laboratory Center [address] [place] [address] Dalia Weiner APRN Non-small cell carcinoma of lung, TNM stage 4 <Unspecified side> Discharge Disposition: Home 07/20/2023 Orders Only Gastrointestinal Center - Gastroenterology, Hepatology & Nutrition [address] [place] [address], [address] [place], [place] [address]ator [place] [address] Mounika Caballero APRN Diarrhea (Primary Dx); Lymphocytic colitis 07/20/2023 Travel 07/19/2023 8:00 AM CDT Telemedicine [facility] - Gastroenterology, Hepatology & Nutrition [address] [place] [address], [address] [place], [place] [address]ator [place] [address] Mounika Caballero APRN Lymphocytic colitis (Primary Dx); Diarrhea 07/19/2023 Prep for Surgery [facility] - Gastroenterology, Hepatology & Nutrition [address] [place] [address], [address] [place], [place] [address] [address] Mounika Caballero APRN Lymphocytic colitis (Primary Dx); Diarrhea; Malignant neoplasm of unspecified part of unspecified bronchus or lung 07/18/2023 Case Management Case Management [address] [place] [address] Johnie Velasco, RN 07/17/2023 Telephone Colorectal Center - Colon and Rectal Surgery [address] [place] [address], 7th [place] [address] Chika Pastrana MA 07/17/2023 Orders Only Thoracic Center - Medical Oncology [address] [place] [address], 9th [place] [address] Dalia Weiner APRN Non-small cell carcinoma of lung, TNM stage 4 <Unspecified side> (Primary Dx) 07/16/2023 Case Management Case Management [address] [place] [address] Johnie Velasco, RASHMI 07/12/2023 Telephone Case Management [address] [place] [address] Johnie Velasco, RN 07/12/2023 Telephone Case Management [address] [place] [address] Johnie Velasco, RN 07/11/2023 Orders Only Gastrointestinal Center - Gastroenterology, Hepatology & Nutrition [address] [place] [address], 7th [place] [address] Mounika Caballero APRN Lymphocytic colitis (Primary Dx) 07/09/2023 Case Management Case Management [address] [place] [address] Johnie Velasco, RN 07/05/2023 Orders Only Neuroradiology [address] [place] [address] Gilles Beatty MD 07/03/2023 3:02 PM CDT - 07/07/2023 6:40 PM CDT Hospital Encounter MAIN [address] [place] [phone] Abhijit Farr MD Musunuru, Tejo, MD Franco [...] 07/03/2023 Telephone Thoracic Center - Medical Oncology [address] [place] [address] Main dg, 9th [place] [address] Ildefonso Donaldson MA 07/03/2023 Telephone [facility] [place] - Neurosurgery [address] [place] [address] Main [facility], 7th [place] [address] Yumiko Briones RN 06/30/2023 Orders Only [facility] - Neuro Oncology [address] [place] [address] Main [facility], 7th [place] [address] Shae Cosme MD Secondary malignant neoplasm of brain (Primary Dx) 06/29/2023 2:08 PM CDT Anesthesia Event Diagnostic Imaging Center [address] [place] [address] Main [facility], 3rd [place] [address] Asim Ontiveros DO Thomas, Nina, SUSANA 06/27/2023 5:31 PM CDT - 07/01/2023 6:33 PM CDT Hospital Encounter MAIN [address]SE [address] [place] [address] Kalpana William MD Wechsler, Adriana, MD Yeung, Sai-Ching, MD Musunuru, Tejo, MD Etchegaray-Langly, Mikel, MD Auditory hallucination (Primary Dx); Secondary malignant neoplasm of brain; Non-small cell carcinoma of lung, TNM stage 4; Poor balance; Depressive disorder; Chronic diarrhea; Subdural hematoma <Subsequent>; Iron deficiency anemia, not otherwise specified Discharge Disposition: Home 06/27/2023 Travel 06/22/2023 Orders Only Thoracic Center - Medical Oncology [address] [place] [address] Main [facility], 9th [place] [address] Dalia Weiner, MODEL MAKING SUPERVISOR Non-small cell carcinoma of lung, TNM stage 4 <Unspecified side> (Primary Dx); Hyperlipidemia, not otherwise specified; Hypokalemia 06/18/2023 Orders Only Thoracic Center - Medical Oncology [address] [facility] Main Bldg, 9th [place] [address] Dalia Weiner, MODEL MAKING SUPERVISOR Malignant neoplasm of unspecified part of unspecified bronchus or lung (Primary Dx) 06/12/2023 [facility] - Medical Oncology [address] Main [address]ldg, 9th [place] [address] Alex Bo MA 06/08/2023 12:30 PM CDT Telemedicine [facility] - Neurosurgery [address] [facility] Main Bldg, 7th [place] [address] Mark Batista MD Ferguson, Sherise D., MD Secondary malignant neoplasm of brain 06/05/2023 Orders Only Neuroradiology [facility] [place] [address] Joslyn Sy MD 06/05/2023 Orders Only Radiation Treatment Center [facility] [facility] Main Bldg, 1st [place] [address] Saira Carrasquillo APRN Secondary malignant neoplasm of brain (Primary Dx) 06/04/2023 1:44 PM CDT - 06/04/2023 11:59 PM CDT Hospital [facility] Radiation Treatment Center [address] [facility] Main Bldg, 1st [place] [address] Bree Calderón MD Secondary malignant neoplasm of brain (Primary Dx) Discharge Disposition: Home 06/04/2023 11:26 AM CDT Anesthesia Event Diagnostic Imaging Center [address] [facility] Main Bldg, 3rd [place] [address] Darius Zelaya MD Kwok, Cindy, CRNA 06/04/2023 10:15 AM CDT - 06/04/2023 1:43 PM CDT Hospital Encounter Diagnostic Imaging Center [address] Main Bldg, 3rd [place] [address] Saira Carrasquillo APRN Potylchansky, Yury, MD Kwok, Cindy, CRNA Secondary malignant neoplasm of brain Discharge Disposition: Home 06/04/2023 Travel 06/01/2023 11:59 PM CDT Anesthesia Event [facility]operative Evaluation [facility] Management [facility] [address] [facility] Main Bldg, 6th [place] [address] Rahel Smallwood APRN 06/01/2023 4:30 PM CDT POEM Appointments Perioperative Evaluation and Management Center [facility] [facility] Main Bldg, 6th [place] [address] Sindi Casiano MD 05/17/2023 Orders Only Thoracic Center - Medical Oncology [facility] [facility] Main Bldg, 9th [place] [address] Dalia Weiner APRN Malignant neoplasm of unspecified part of unspecified bronchus or lung (Primary Dx) 05/17/2023 Orders Only Thoracic Center - Medical Oncology [facility] [facility] Main Bldg, 9th [place] [address] Dalia Weiner APRN Malignant neoplasm of unspecified part of unspecified bronchus or lung; Diarrhea 05/16/2023 Refill Thoracic Center - Medical Oncology [facility] [facility] Main Bldg, 9th [place] [address] Dalia Weiner APRN Malignant neoplasm of unspecified part of unspecified bronchus or lung; Diarrhea 05/03/2023 Documentation Radiation Treatment Center [facility] Main [place] [address] Bree Calderón MD 05/02/2023 Orders Only Thoracic Center - Medical Oncology [facility] [facility] Main Bldg, 9th [place] [address] Cassandra, Dalia E, MODEL MAKING SUPERVISOR Non-small cell carcinoma of lung, TNM stage 4 <Unspecified side> (Primary Dx) 04/18/2023 2:40 PM QUARRYING MANAGER - 04/18/2023 11:59 PM QUARRYING MANAGER Hospital Encounter Diagnostic Laboratory Center [address] [facility] Main [facility], [place] [address] Sindi Casiano MD Malignant neoplasm of unspecified part of unspecified bronchus or lung Discharge Disposition: Home 04/18/2023 1:00 PM QUARRYING MANAGER Follow-Up Thoracic Center - Medical Oncology [address] [facility] Main [facility], 9th [place] [address] Sindi Casiano MD Malignant neoplasm of unspecified part of unspecified bronchus or lung (Primary Dx); Non-small cell carcinoma of lung, TNM stage 4 <Unspecified side> 04/18/2023 Documentation Rehabilitation Services [address] [facility], 1st Floor G1.3418 [place] [address] Zohreh Hamilton, PT 04/18/2023 Orders Only Thoracic Center - Medical Oncology [facility] [facility] Main [facility], 9th [place] [address] Rosa Almendarez, Greer Malignant neoplasm of unspecified part of unspecified bronchus or lung (Primary Dx) 04/18/2023 Travel 04/16/2023 2:05 PM QUARRYING MANAGER Ancillary Procedure CT Imaging [address] [facility], 7th [place] [address] Dalia Weiner, MODEL MAKING SUPERVISOR Non-small cell carcinoma of lung, TNM stage 4 <Unspecified side> 04/12/2023 9:30 AM QUARRYING MANAGER - 04/12/2023 11:59 PM QUARRYING MANAGER Hospital Encounter Radiation Treatment Center [address] [facility], 1st [place] [address] Saira Carrasquillo, SUSANA Secondary malignant neoplasm of brain Discharge Disposition: Home 04/12/2023 Orders Only [facility] - Neurosurgery [address] [facility] Main [facility], 7th [place] [address] Rajinder English APRN Lesion of brain (Primary Dx) 04/11/2023 8:13 AM QUARRYING MANAGER Anesthesia Event Radiation Treatment Center [facility] Radiation Oncology Center Take Elevator G to the Basement [place] [address] Kenton Reich MD 04/11/2023 7:10 AM QUARRYING MANAGER - 04/11/2023 11:40 AM QUARRYING MANAGER Surgery Radiation Treatment Center [facility] Radiation Oncology [place] Take Elevator G to the Basement Waiting Area E [place] [id number] Bree Calderón MD 4 STAR - STEREOTACTIC RADIATION [place] MANAGEMENT,CRANIAL LESION 04/11/2023 7:03 AM QUARRYING MANAGER - 04/11/2023 5:39 PM QUARRYING MANAGER Hospital Encounter Radiation Treatment Center [address] [place] [address] Radiation Oncology [place] Take Elevator G to the Basement [place] [address] Mark Batista MD Discharge Disposition: Home 04/11/2023 Documentation Radiation Treatment Center [address] [facility] Main Bldg near Elevator G [place] [id number] Bree Calderón MD 04/11/2023 Documentation Radiation Treatment Center [address] [facility] Main Bldg near Elevator G [place] [id number] Bree Calderón MD 04/11/2023 Documentation Radiation Treatment Center [address] [facility] Main Bldg near Elevator G [place] [id number] Bree Calderón MD 04/11/2023 Travel 04/10/2023 11:00 AM QUARRYING MANAGER - 04/10/2023 11:59 PM QUARRYING MANAGER Hospital Encounter Radiation Treatment Center [address] [facility] Main Bldg, 1st Floor near Elevator G [place] [id number] Saira Carrasquillo APRN Foster, Avian P, RN Secondary malignant neoplasm of brain Discharge Disposition: Home 04/10/2023 Prep for Surgery [facility] - Neurosurgery [address] [facility] Main Bldg, 7th Floor Elevator B [place] [id number] Rajinder English APRN 04/10/2023 Documentation [facility] - Neurosurgery [address] [facility] Main Bldg, 7th [place] [address] Marcella Hopper APRN 04/10/2023 Prep for Surgery [facility] - Neurosurgery [address] Main Bldg, 7th [place] [address] Marcella Hopper, SUSANA Secondary malignant neoplasm of brain (Primary Dx) 04/09/2023 10:37 AM QUARRYING MANAGER - 04/09/2023 11:59 PM QUARRYING MANAGER Hospital Encounter Diagnostic Laboratory Center [address] [facility] Main Bl, [place] [address] Saira Carrasquillo APRN Secondary malignant neoplasm of brain Discharge Disposition: Home 04/09/2023 7:28 AM QUARRYING MANAGER Anesthesia Event Diagnostic Imaging Center [address] [facility] Main Bldg, 3rd [place] [address] Darius Zelaya MD 04/09/2023 6:08 AM QUARRYING MANAGER - 04/09/2023 10:36 AM QUARRYING MANAGER Hospital Encounter Diagnostic Imaging Center [address] [facility] Main Bldg, 3rd [place] [address] Saira Carrasquillo APRN Mirza, Alisa, CRNA Potylchansky, Yury, MD Secondary malignant neoplasm of brain Discharge Disposition: Home 04/06/2023 11:59 PM QUARRYING MANAGER Anesthesia Event Perioperative Evaluation and Management Center [facility] [facility] Main Bldg, 6th [place] [address] Yamilet Gibson RN 04/06/2023 11:30 AM QUARRYING MANAGER POEM Appointments Perioperative Evaluation and Management Center [facility] [facility] Main Bldg, 6th [place] [address] Sindi Casiano MD 03/26/2023 Orders Only Thoracic Center - Medical Oncology [address] Main Bldg, 9th [place] [address] Cassandra, Dalia E, MODEL MAKING SUPERVISOR Hypokalemia (Primary Dx) 03/02/2023 Documentation Radiation Treatment Center [address] [facility] Main Bldg, 1st [place] [address] Curtis Welsh APRN 02/27/2023 Orders Only Neuroradiology [facility] [place] [address] Tere Hawkins MD 02/27/2023 Orders Only Radiation Treatment Center [address] [facility] Main Bldg, 1st [place] [address] Saira Carrasquillo APRN Secondary malignant neoplasm of brain (Primary Dx) 02/26/2023 2:49 PM QUARRYING MANAGER - 02/26/2023 11:59 PM QUARRYING MANAGER Hospital Encounter Radiation Treatment Center [facility] [facility] Main Bldg, 1st [place] [address] Bree Calderón MD Secondary malignant neoplasm of brain Discharge Disposition: Home 02/26/2023 Travel 02/14/2023 9:23 AM QUARRYING MANAGER Anesthesia Event Diagnostic Imaging Center [facility] [facility] Main Bldg, 3rd [place] [address] Bambi Hernandez MD 02/14/2023 8:00 AM QUARRYING MANAGER - 02/14/2023 11:59 PM QUARRYING MANAGER Hospital Encounter Diagnostic Imaging Center [facility] [facility] [address] Main Bldg, 3rd [place] [address] Jailene Crespo CRNA Oliver, Jodi Ann, MD Secondary malignant neoplasm of brain Discharge Disposition: Home 02/07/2023 11:59 PM QUARRYING MANAGER Anesthesia Event Perioperative Evaluation and Management Center [facility] [facility] Main Bldg, 6th [place] [address] Miguel Angel Riggins RN 02/07/2023 12:00 PM QUARRYING MANAGER POEM Appointments Perioperative Evaluation and Management Center [facility] Main Bldg, 6th [place] [address] Sindi Casiano MD 01/29/2023 Orders Only Thoracic Center - Medical Oncology [facility] Main Bldg, 9th [place] [address] Dalia Weiner, MODEL MAKING SUPERVISOR Non-small cell carcinoma of lung, TNM stage 4 <Unspecified side> (Primary Dx) 01/17/2023 7:50 AM CDT - 01/17/2023 11:59 PM CDT Hospital Encounter Main CT IMAGING [address] [facility] Main Bldg, 3rd [place] [address] Dalia Weiner, SUSANA Non-small cell carcinoma of lung, TNM stage 4 <Unspecified side> Discharge Disposition: Home 01/17/2023 7:24 AM CDT - 01/17/2023 7:49 AM CDT Hospital Encounter Diagnostic Laboratory Center [address] [facility] Main Bldg, [place] [address] Dalia Weiner, MODEL MAKING SUPERVISOR Non-small cell carcinoma of lung, TNM stage 4 <Unspecified side> Discharge Disposition: Home 01/17/2023 Orders Only Thoracic Center - Medical Oncology [address] [facility] Main Bldg, 9th [place] [address] Rosa Almendarez, PharmD 01/09/2023 Orders Only Neuroradiology [facility] [place] [address] Sharlene Wayne MD 01/09/2023 Orders Only Radiation Treatment Center [facility] [facility] Main Bldg, 1st [place] [address] Vicky Denise, MODEL MAKING SUPERVISOR Secondary malignant neoplasm of brain (Primary Dx) 01/08/2023 4:00 PM CDT - 01/08/2023 11:59 PM CDT Hospital Encounter Radiation Treatment Center [address] [facility] Main Bldg, 1st [place] [address] Bree Calderón MD Secondary malignant neoplasm of brain Discharge Disposition: Home 01/05/2023 9:44 AM CDT Anesthesia Event Diagnostic Imaging Center [address] [facility] Main Bldg, 3rd [place] [address] Moni Malloy MD Kwok, Shima, SHIPPING AND RECEIVING SPECIALIST 01/05/2023 8:00 AM CDT - 01/05/2023 11:59 PM CDT Hospital Encounter Diagnostic Imaging Center [address] [place] [address], 3rd [place] [address] Lois Willingham MD Nguyen, MD Edson [place]en[place]ro Vianey, OSMEL Secondary malignant neoplasm of brain Discharge Disposition: Home 01/04/2023 4:00 PM CDT POEM Appointments Perioperative Evaluation and Management Center [address] [place] [address], 6th [place] [address] Sindi Casiano MD 12/11/2022 [facility] - Medical Oncology [address] [place] [address], 9th [place] [address] Carmelita Cisse, RASHMI 11/29/2022 11:59 PM CDT Anesthesia Event Perioperative Evaluation and Management Center [address] [place] [address], 6th [place] [address] Navarro Briseno II, MODEL MAKING SUPERVISOR 11/29/2022 10:21 AM CDT - 11/29/2022 11:59 PM CDT Hospital Encounter Diagnostic Laboratory Center [address] [place] [address] Dalia Weiner, MODEL MAKING SUPERVISOR Non-small cell carcinoma of lung, TNM stage 4 <Unspecified side> Discharge Disposition: Home 11/29/2022 9:32 AM CDT - 11/29/2022 10:20 AM CDT Hospital Encounter Interventional Radiology [address] [place] [address], 4th [place] [address] Sindi Casiano MD Chen, Stephen, MD Subdural hematoma <Subsequent> (Primary Dx); Follow-up 7-11 months Discharge Disposition: Home 11/29/2022 6:00 AM CDT Ancillary Procedure CT Imaging [address] [place] [address], 7th [place] [address] Randa Méndez PA 11/29/2022 Orders Only Radiation Treatment Center [address] [facility] [address] Main Bldg, 1st [place] [address] Lois Willingham MD 11/29/2022 Travel 11/27/2022 Orders Only Thoracic Center - Medical Oncology [address] Main Bldg, 9th [place] [address] Dalia Weiner APRN Non-small cell carcinoma of lung, TNM stage 4 <Unspecified side> (Primary Dx) 11/16/2022 Orders Only Thoracic Center - Medical Oncology [address] Main Bldg, 9th [place] [address] Dalia Weiner APRN Non-small cell carcinoma of lung, TNM stage 4 <Unspecified side> (Primary Dx) 11/02/2022 9:30 AM CDT Ancillary Procedure CT Imaging [address] [facility], 7th [place] [address] Dalia Weiner APRN Non-small cell carcinoma of lung, TNM stage 4 <Unspecified side> 10/31/2022 Orders Only Thoracic Center - Medical Oncology [address] [facility] [address] Main Bldg, 9th [place] [address] Dalia Weiner APRN Non-small cell carcinoma of lung, TNM stage 4 <Unspecified side> (Primary Dx) 10/30/2022 10:45 AM CDT - 10/30/2022 11:59 PM CDT Hospital Encounter Diagnostic Laboratory Center [address] Main Bldg, [place] [address] Dalia Weiner APRN Non-small cell carcinoma of lung, TNM stage 4 <Unspecified side> Discharge Disposition: Home 10/30/2022 Telephone Thoracic Center - Medical Oncology [address] [facility] [address] [address] Main Bldg, 9th [place] [address] Kassi Foster MA 10/05/2022 11:45 AM CDT - 10/05/2022 11:59 PM CDT Hospital Encounter Radiation Treatment Center [address] Main Bldg, 1st [place] [address] Lois Willingham MD Secondary malignant neoplasm of brain Discharge Disposition: Home 10/04/2022 3:13 PM CDT Anesthesia Event Diagnostic Imaging Center [address] [place] [address] Main [facility], 3rd [place] [address] Maia Aguilar MD 10/04/2022 1:15 PM CDT - 10/04/2022 11:59 PM CDT Hospital Encounter Diagnostic Imaging Center [address] [place] [address], 3rd [place] [address] Sindi Casiano MD Arunkumar, Radha, MD Secondary malignant neoplasm of brain Discharge Disposition: Home 10/03/2022 11:59 PM CDT Anesthesia Event Perioperative Evaluation and Management Center [address] [place] [address], 6th [place] [address] Yamilet Gibson RN 10/03/2022 4:30 PM CDT POEM Appointments Perioperative Evaluation and Management Center [address] [place] [address], 6th [place] [address] Sindi Casiano MD 10/02/2022 Orders Only Thoracic Center - Medical Oncology [address] [place] [address], 9th [place] [address] Dalia Weiner APRN Hypokalemia (Primary Dx) after 09/26/2022 Immunizations Name Administration Dates Next Due Pfizer SARS-CoV-2 Vaccination (Purple Cap) 11/06 Surgical History Surgery Date Site/Laterality Comments THYROID SURGERY 07/14/2016 was planned for partial thyroidectomy which was aborted d/t positive LN UTERINE FIBROID EMBOLIZATION GALLBLADDER SURGERY LAPAROSCOPIC GASTRIC BANDING TUBAL LIGATION LA EGD TRANSORAL BIOPSY SINGLE/MULTIPLE 05/31/2019 Esophagus/N/A Procedure: UPPER GASTROINTESTINAL ENDOSCOPY OF ESOPHAGUS, STOMACH, AND DUODENUM WITH BIOPSY; Surgeon: Haile Whittaker MD; Location: MAIN ENDOSCOPY; Service: GASTROENTEROLOGY LA CRANIEC TREPHINE BONE FLP BRAIN TUMOR SUPRTENTOR 02/10/2020 Head/Left Procedure: LEFT TEMPORAL CRANIOTOMY FOR EXCISION OF BRAIN TUMOR; Surgeon: Frannie Emery MD; Location: MAIN OR; Service: NEUROSURGERY Medical devices from this surgery are in the Medical Devices section. LA COLONOSCOPY FLX DX W/COLLJ SPEC WHEN PFRMD 09/28/2021 N/A Procedure: DIAGNOSTIC FLEXIBLE COLONOSCOPY PROXIMAL TO SPLENIC FLEXURE; Surgeon: Annette Kang MD; Location: MAIN ENDOSCOPY; Service: GASTROENTEROLOGY; The EGD and colonoscopy showed minimal inflammation in the stomach/duodenum, but lymphocytic colitis on biopsy, which could certainly explain her symptoms of diarrhea. LA TCAT PERMANENT OCCLUSION/EMBOLIZATION PRQ POLLUTION CONTROL ENGINEER 06/09/2022 Bilateral Procedure: IR EMBOLIZATION POLLUTION CONTROL ENGINEER (INTRACRANIAL); Surgeon: Haim Mckeon MD; Location: MAIN OR; Service: INTERVENTIONAL RADIOLOGY LA STERETCTC RADIATION [place] MANAGEMENT CRANIAL LESION 04/11/2023 [...] Care Team (Late st Contact Info) Description 10/03/2023 12:00 PM CDT Office Visit [facility] Sp[facility] Center - Neuro Oncology [address] [place] [address], 7th [place] [address] Suzi Dias DO [address] [place] [phone] [email or web address] 10/18/2023 9:00 AM CDT Telemedicine Gastrointestinal Center - Gastroenterology, Hepatology & Nutrition [address] [place] [address], 7th [place] [address] Mounika Caballero APRN [address] [place] [phone] [email or web address] 10/20/2023 10:00 AM CDT Appointment Diagnostic Laboratory Center [address] [place] [address], [facility] [place] [address] Dalia Weiner APRN [address] [place] [phone] [email or web address] 10/20/2023 10:35 AM CDT Appointment Main CT IMAGING [address] [place] [address], 3rd [place] [address] Dalia Weiner APRN [address] [place] [phone] [email or web address] 10/23/2023 10:00 AM CDT Follow-Up Thoracic Center - Medical Oncology [address] [facility] Main dg, 9th [place] [address] Sindi Casiano MD [facility] [place] [address] [email or web address] 10/26/2023 6:15 AM CDT Appointment Diagnostic Imaging Center [address] [place] [address] Main [facility], 3rd [place] [address] Vicky Denise, MODEL MAKING SUPERVISOR [address] [place] [phone] [email or web address] 10/29/2023 4:00 PM CDT Appointment Radiation Treatment Center [address] [place] [address], 1st [place] [address] Bree Calderón MD [address] [place] [phone] [email or web address] 01/01/2024 11:00 AM CDT Telemedicine [facility] Sp[facility] - Neurosurgery [address] [place] [address] Main [facility], 7th [place] [address] Frannie Emery MD [address] [place] [phone] [email or web address] Health Maintenance Due Date Last Done Comments COVID-19 Vaccine (2 - Pfizer risk series) 11/27/2020 11/06/2020 Influenza Vaccine 11/18/2023 Medical Devices Implanted Type [employer] Executive Director Device Identifier Shelf Expiration Date Model / Serial / Lot Lap Band Implant Stomach [employer] [id number] / [id number] / Description:Lap band--Cezar [facility]--2010--Dr. Edward Reed--[phone] Allergan Lap-Band--Conditional 5 up to 3T per MR [employer] Hc Cover, Matrix Neuro Ulp Donnellson Hole, Ti, 17mm - [id number] Implanted:Qty: 2 on 02/10/2020 by Frannie Emery MD at [facility] Implant Left: Cranial SYNTHES [facility] 04.502.0 23 / / Plate, Matix, Neuro, Ulp Ti, Box, 36qgq67zp - [id number] Implanted:Qty: 1 on 02/10/2020 by Frannie Emery MD at [facility] Implant Left: Cranial SYNTHES [facility] .502.0 65 / / Screw Matrixneuro 4mm Self Drilling Pkg 1 - [id number] Implanted:Qty: 13 on 02/10/2020 by Frannie Emery MD at [facility] Metalware Left: Cranial SYNTHES [facility] 503.1 04.01 / / Florian Hole Crani 17mm Low Profile - [id number] Implanted:Qty: 1 on 02/10/2020 by Frannie Emery MD at [facility] Metalware Left: Cranial SYNTHES [facility] 503.0 23 / / Sealant Duraseal 5ml - [id number] Implanted:Qty: 1 on 02/10/2020 by Frannie Emery MD at [facility] Skin/Tissue Left: Cranial COVIDIEN 12/16/2020- / / [id number] Procedures Procedure Name Priority Date/Time Associated Diagnosis [...] 9:10 PM CDT PHOSPHORUS LEVEL Routine 07/24/2023 9:1 0 PM CDT MAGNESIUM LEVEL Routine 07/24/2023 9:10 [...] MRI BRAIN W WO CONTRAST Routine 06/04/19 12:48 PM CDT Secondary malignant neoplasm of brain LIPID PANEL Routine 04/18/2023 2:50 PM QUARRYING MANAGER Malignant neoplasm of unspecified part of unspecified bronchus or lung MAGNESIUM LEVEL Routine 04/18/2023 2:50 PM QUARRYING MANAGER Malignant neoplasm of unspecified part of unspecified bronchus or lung CREATINE KINASE Routine 04/18/2023 2:50 PM QUARRYING MANAGER Malignant neoplasm of unspecified part of unspecified bronchus or lung COMPREHENSIVE METABOLIC PANEL Routine 04/18/2023 2:50 PM QUARRYING MANAGER Malignant neoplasm of unspecified part of unspecified bronchus or lung CT CHEST ABDOMEN PELVIS W CONTRAST Routine 04/16/2023 5:20 PM QUARRYING MANAGER Non-small cell carcinoma of lung, TNM stage 4 <Unspecified side> POC CREATININE Routine 04/16/2023 4:39 PM QUARRYING MANAGER [place] STERETCTC RADIATION [place] MANAGEMENT CRANIAL LESION 04/11/2023 8:03 AM QUARRYING MANAGER Secondary malignant neoplasm of brain .CBC Routine 04/09/2023 10:59 AM QUARRYING MANAGER Secondary malignant neoplasm of brain COMPLETE BLOOD COUNT W/ DIFFERENTIAL Routine 04/09/2023 10:59 AM QUARRYING MANAGER Secondary malignant neoplasm of brain MRI BRAIN WITH AND WITHOUT CONTRAST - FRAMELESS GAMMA KNIFE Routine 04/09/2023 8:55 AM QUARRYING MANAGER Secondary malignant neoplasm of brain MRI BRAIN W WO CONTRAST - ABTI Routine 02/14/2023 11:23 AM QUARRYING MANAGER Secondary malignant neoplasm of brain POC CREATININE Routine 02/14/2023 9:[address] CHEST ABDOMEN PELVIS W CONTRAST Routine [...] MRI BRAIN W WO CONTRAST Routine 10/05/19 23 4:10 PM CDT Secondary malignant neoplasm of brain after 09/26/2022 Results * (ABNORMAL) .CBC (08/11/2023 5:02 AM CDT) Only the most recent of33 resultswithin the time period is included. White Blood Cell 5.4 4.1 - 10.5 K/uL 08/11/2023 9:56 AM CDT [facility] Red Blood Cell 3.04(L) 3.99 - 5.46 M/uL 08/11/2023 9:56 AM CDT [facility] Hemoglobin 9.1(L) 12.2 - 15.3 g/dL 08/11/2023 9:56 AM CDT [facility] Hematocrit 28.9(L) 36.4 - 46.8 % 08/11/2023 9:56 AM CDT [facility] Mean Cell Volume 95 82 - 99 fL 08/11/2023 9:56 AM CDT [facility] Mean Cell Hemoglobin 29.9 26.6 - 33.2 pg 08/11/2023 9:56 AM CDT [facility] Mean Cell Hemoglobin Concentration 31.5 31.1 - 35.2 g/dL 08/11/2023 9:56 AM CDT [facility] RDW-SD 54.4(H) 37.5 - 49.7 fL 08/11/2023 9:56 AM CDT [facility] Red Cell Diameter Width 15.8(H) 11.6 - 15.5 % 08/11/2023 9:56 AM CDT [facility] Platelet 367 160 - 397 K/uL 08/11/2023 9:56 AM CDT [facility] Mean Platelet Volume 9.5 9.1 - 12.6 fL 08/11/2023 9:56 AM CDT [facility] INRBC 0.0 0.0 - 0.1 /100 WBC 08/11/2023 9:56 AM CDT [facility] Comment: The INRBC (instrument NRBC) value reflects [...] CDT Asya Egan MD LAB BLOOD ORDERABLES [facility] Unless otherwise noted, all lab tests performed by: Division of Pathology and Laboratory Medicine [address] [place] [phone] * (ABNORMAL) Basic Metabolic Panel- Total Calcium (08/11/2023 5:02 AM CDT) Only the most recent of17 resultswithin the time period is included. eGFR 103 >=60 mL/min/1.7 3 sq. m 08/11/2023 5:40 AM CDT [facility] Comment: The eGFRcr is calculated with the [...] - 10.2 mg/dL 08/11/2023 5:40 AM CDT [facility] Sodium Level 141 136 - 145 mmol/L 08/11/2023 5:40 AM CDT [facility] Potassium Level 3.8 3.4 - 4.5 mmol/L 08/11/2023 5:40 AM CDT [facility] Chloride 106 98 - 107 mmol/L 08/11/2023 5:40 AM CDT [facility] CO2 24 22 - 29 mmol/L 08/11/2023 5:40 AM CDT [facility] Anion Gap 11 4 - 14 mmol/L 08/11/2023 5:40 AM CDT [facility] Creatinine 0.71 0.51 - 0.95 mg/dL 08/11/2023 5:40 AM CDT [facility] BUN 11 6 - 23 mg/dL 08/11/2023 5:40 AM CDT [facility] Glucose Level 92 70 - 99 mg/dL 08/11/2023 5:40 AM CDT [facility] Comment: Effective 10/13/15, the glucose reference intervals have been updated based on [place] Diabetes Association guidelines (Standards of Medical Care [...] CDT Asya Egan MD LAB BLOOD ORDERABLES [facility] Unless otherwise noted, all lab tests performed by: Division of Pathology and Laboratory Medicine [address] [place] [id number] * (ABNORMAL) Differential (08/11/2023 5:02 AM CDT) Only the most recent of6 resultswithin the time period is included. Total Cells 114 08/11/2023 9:56 AM CDT [facility] Manual Neutrophil % 73.0(H) 43.2 - 72.7 % 08/11/2023 9:56 AM CDT [facility] Comment:The Neutrophil count includes Bands. Manual Lymphocyte % 18.0 16.8 - 46.2 % 08/11/2023 9:56 AM CDT [facility] Manual Monocyte % 4.0(L) 5.1 - 12.5 % 08/11/2023 9:56 AM CDT [facility] Manual Eosinophil % 5.0 0.4 - 6.3 % 08/11/2023 9:56 AM CDT [facility] Metamyelocyte % 9:56 AM CDT [facility] Comment:The Metamyelocyte co unt includes Myelocytes. Manual Neutrophil Abs 3.94 1.95 - 7.25 K/uL 08/11/2023 9:56 AM CDT [facility] Manual Lymphocyte Abs 0.97(L) 1.01 - 3.24 K/uL 08/11/2023 9:56 AM CDT [facility] Manual Monocyte Abs 0.22(L) 0.24 - 0.85 K/uL 08/11/2023 9:56 AM CDT [facility] Manual Eosinophil Abs 0.27 0.02 - 0.50 K/uL 08/11/2023 9:56 AM CDT [facility] RBC Morphology PRESENT 08/11/2023 9:56 AM CDT [facility] Ovalocyte Present(A) (none) 08/11/2023 9:56 AM CDT [facility] Tear Drop Present(A) (none) 08/11/2023 9:56 AM CDT [facility] Slide Comment SEE NOTE 08/11/2023 9:56 AM CDT [facility] Comment:Platelet morphology normal. Blood Peripheral blood specimen / Unknown Venipuncture / Unknown 08/11/2023 5:02 AM CDT 08/11/2023 5:10 AM CDT Asya Egan MD LAB BLOOD ORDERABLES Performing Organization Address City/[facility] Co de Phone Number [facility] Unless otherwise noted, all lab tests performed by: Division of Pathology and Laboratory Medicine [address] [place] [id number] * Phosphorus Level (08/11/2023 5:02 AM CDT) Only the most recent of29 resultswithin the time period is included. Phosphorus Level 3.3 2.5 - 4.5 mg/dL 08/11/2023 5:40 AM CDT [facility] Blood Peripheral blood specimen / Unknown Venipuncture / Unknown 08/11/2023 5:02 AM CDT 08/11/2023 5:10 AM CDT Sujata Grant MD LAB BLOOD ORDERABLES Performing Organization Address City/[facility]/ZIP Co de Phone Number [facility] Unless otherwise noted, all lab tests performed by: Division of Pathology and Laboratory Medicine [address] [place] [phone] * Magnesium Level (08/11/2023 5:02 AM CDT) Only the most recent of29 resultswithin the time period is included. Magnesium Level 2.0 1.6 - 2.6 mg/dL 08/11/2023 5:40 AM CDT [facility] Blood Peripheral blood specimen / Unknown Venipuncture / Unknown 08/11/2023 5:02 AM CDT 08/11/2023 5:10 AM CDT Sujata Grant MD LAB BLOOD ORDERABLES [facility] Unless otherwise noted, all lab tests performed by: Division of Pathology and Laboratory Medicine [address] [place] [address] * MRI Brain with and without Contrast [...] lung adenocarcinoma status post whole brain radiation 2016, craniotomy with left temporal tumor resection 02/10/2020, [...] unexpected and potentially actionable. Dany Bonilla MD [facility] MRI ORDERABLES * Gastrointestinal Multiplex PCR Panel (08/04/2023 3:24 PM CDT) Only the most recent of3 resultswithin the time period is included. Campylobacter Not Detected Not Detected 08/04/2023 6:07 PM CDT [facility] Plesiomonas shigelloides Not Detected Not Detected 08/04/2023 6:07 PM CDT [facility] Salmonella Not Detected Not Detected 08/04/2023 6:07 PM CDT [facility] Vibrio Not Detected Not Detected 08/04/2023 6:07 PM CDT [facility] Vibrio cholerae Not Detected Not Detected 08/04/2023 6:07 PM CDT [facility] Yersinia enterocolitica Not Detected Not Detected 08/04/2023 6:07 PM CDT [facility] Enteroaggregative E. coli (EAEC) Not Detected Not Detected 08/04/2023 6:07 PM CDT [facility] Enteropathogenic E. coli (EPEC) Not Detected Not Detected 08/04/2023 6:07 PM CDT [facility] Enterotoxigenic E. coli (ETEC) LT/ST Not Detected Not Detected 08/04/2023 6:07 PM CDT [facility] Shiga-like toxin-producing E. coli (STEC) Stx1/Stx2 Not Detected Not Detected 08/04/2023 6:07 PM CDT [facility] E. coli O157 N/A Not Detected 08/04/2023 6:07 PM CDT [facility] Shigella/Enteroinvas lyndsay E. coli (EIEC) Not Detected Not Detected 08/04/2023 6:07 PM CDT [facility] Cryptosporidium Not Detected Not Detected 08/04/2023 6:07 PM CDT [facility] Cyclospora cayetanensis Not Detected Not Detected 08/04/2023 6:07 PM CDT [facility] Entamoeba histolytica Not Detected Not Detected 08/04/2023 6:07 PM CDT [facility] Giardia lamblia Not Detected Not Detected 08/04/2023 6:07 PM CDT [facility] Adenovirus F40/41 Not Detected Not Detected 08/04/2023 6:07 PM CDT [facility] Astrovirus Not Detected Not Detected 08/04/2023 6:07 PM CDT [facility] Norovirus GI/GII Not Detected Not Detected 08/04/2023 6:07 PM CDT [facility] Rotavirus A Not Detected Not Detected 08/04/2023 6:07 PM CDT [facility] Sapovirus (I, II, IV, V) Not Detected Not Detected 08/04/2023 6:07 PM CDT [facility] C. difficile Refer to separate C. difficile DNA Detection assay for results. 08/04/2023 6:07 PM CDT [facility] Stool Rectum structure / Unknown Non-blood Collection / Unknown 08/04/2023 3:24 PM CDT 08/04/2023 4:27 PM CDT [facility] - 08/04/2023 6:07 PM CDT The assay is a qualitative multiplex PCR assay to aid in the diagnosis of gastrointestinal infection through simultaneous qualitative detection and identification of multiple GI pathogens in diarrheal specimens collected in [employer] transport media obtained from individuals suspected of gastrointestinal infections. Testing is performed using the [employer] Film[employer] Gastrointestinal (GI) Panel on the Parachute System. The following organisms are identified using the Compass-EOS GI Panel: Campylobacter spp., Plesiomonas shigelloides, Salmonella [...] verified by the microbiology laboratory at the [facility]. Results must be interpreted within the context of all relevant clinical and laboratory findings. Assay should not be used for monitoring response to therapy. Dany Bonilla MD MICROBIOLOGY - [facility] ORDERABLES [facility] Unless otherwise noted, all lab tests performed by: Division of Pathology and Laboratory Medicine [address] [place] [id number] * C. difficile DNA Detection (08/04/2023 3:24 PM CDT) Only the most recent of4 resultswithin the time period is included. C. difficile - DNA Negative Negative 08/05/2023 10:34 AM CDT [facility] C. difficile - EIA Test Not Performed Negative 08/05/2023 10:34 AM CDT [facility] C. difficile - Interpretation C. difficile DNA detection was negative making C. difficile infection highly unlikely in this patient. EIA not performed. 08/05/2023 10:34 AM CDT [facility] Stool Rectum structure / Unknown Non-blood Collection / Unknown 08/04/2023 3:24 PM CDT 08/04/2023 4:27 PM CDT Narrative [facility] - 08/05/2023 10:34 AM CDT Qualitative detection of C. difficile DNA performed using helicase-dependent amplification of a conserved region of a pathogenicity locus (PaLoc) in toxigenic C. difficile strains. It is an FDA-approved assay performed on the [employer] Instrument from [employer] and is intended for use as an [...] rapid immunoassay using the FDA-approved ImmunoCard by [employer]. Patients positive for BOTH C. difficile DNA [...] verified by the microbiology laboratory at the [facility]. Results must be interpreted within the context of all relevant clinical and laboratory findings. Dany Bonilla MD MICROBIOLOGY - [facility] JANET ORDERABLES [facility] Unless otherwise noted, all lab tests performed by: Division of Pathology and Laboratory Medicine [address] [place] [id number] * (ABNORMAL) Procalcitonin (08/04/2023 4:19 AM CDT) Only the most recent of3 resultswithin the time period is included. Procalcitonin 0.48(H) <=0.08 ng/mL 08/04/2023 10:15 AM CDT [facility] Blood Peripheral blood specimen / Unknown Venipuncture / Unknown 08/04/2023 4:19 AM CDT 08/04/2023 5:16 AM CDT [facility] - 08/04/2023 10:15 AM CDT Procalcitonin > [...] with extended dilution as it exceeds the technical service rep's recommended limit. Caution should be exercised when interpreting such values and done in conjunction with clinical context. Dany Bonilla MD LAB BLOOD ORDERABLES [facility] Unless otherwise noted, all lab tests performed by: Division of Pathology and Laboratory Medicine [address] [place] [id number] * (ABNORMAL) Hepatic Function Panel (08/04/2023 4:19 AM CDT) Only the most recent of2 resultswithin the time period is included. Bilirubin Total <0.3 0.0 - 1.2 mg/dL 08/04/2023 11:14 AM CDT [facility] Comment: Direct and indirect bilirubin will not be reported when Total bilirubin result is <0.3 mg/dL Indocyanine Green (ICG) may cause falsely elevated bilirubin results. Total and direct bilirubin must not be measured from samples containing indocyanine green. False elevation of total bilirubin can be seen in patients with IgG concentrations above 28 g/L. Bilirubin Direct 08/04/19 11:14 AM CDT [facility] Comment: Direct and indirect bilirubin will not be reported when Total bilirubin result is <0.3 mg/dL Indocyanine Green (ICG) may cause falsely elevated bilirubin results. Total and direct bilirubin must not be measured from samples containing indocyanine green. Bilirubin Indirect 2023 11:14 AM CDT [facility] Comment:Direct and indirect bilirubin will not be reported when Total bilirubin result is <0.3 mg/dL Tot Protein 6.3(L) 6.4 - 8.3 gm/dL 08/04/2023 11:14 AM CDT [facility] Alkaline Phosphatase 93 35 - 104 U/L 08/04/2023 11:14 AM CDT [facility] Albumin Level 3.0(L) 3.5 - 5.2 gm/dL 08/04/2023 11:14 AM CDT [facility] AST 14 <=32 U/L 08/04/2023 11:14 AM CDT [facility] ALT 6 <=33 U/L 08/04/2023 11:14 AM CDT [facility] Blood Peripheral blood specimen / Unknown Venipuncture / Unknown 08/04/2023 4:19 AM CDT 08/04/2023 5:16 AM CDT Dany Bonilla MD LAB BLOOD ORDERABLES [facility] Unless otherwise noted, all lab tests performed by: Division of Pathology and Laboratory Medicine [address] [place] [id number] * XR Chest 1 View (08/03/2023 11:10 [...] unexpected and potentially actionable. Dany Bonilla MD IMG DIAGNOSTIC IMAGI NG ORDERABLES * Respiratory Multiplex PCR Panel, Nasopharyngeal Swab (08/03/2023 11:06 AM CDT) Adenovirus Not Detected Not Detected 08/03/2023 2:43 PM CDT [facility] Coronavirus 229E Not Detected Not Detected 08/03/2023 2:43 PM CDT [facility] Coronavirus HKU1 Not Detected Not Detected 08/03/2023 2:43 PM CDT [facility] Coronavirus NL63 Not Detected Not Detected 08/03/2023 2:43 PM CDT [facility] Coronavirus OC43 Not Detected Not Detected 08/03/2023 2:43 PM CDT [facility] COVID-19 (SARS-CoV-2) Not Detected Not Detected 08/03/2023 2:43 PM CDT [facility] Human Metapneumovirus Not Detected Not Detected 08/03/2023 2:43 PM CDT [facility] Human Rhinovirus/Enterov irus Not Detected Not Detected 08/03/2023 2:43 PM CDT [facility] Influenza A Not Detected Not Detected 08/03/2023 2:43 PM CDT [facility] Influenza A H1 Not Detected Not Detected 08/03/2023 2:43 PM CDT [facility] Influenza A H1 2009 Not Detected Not Detected 08/03/2023 2:43 PM CDT [facility] Influenza A H3 Not Detected Not Detected 08/03/2023 2:43 PM CDT [facility] Influenza B Not Detected Not Detected 08/03/2023 2:43 PM CDT [facility] Parainfluenza Virus 1 Not Detected Not Detected 08/03/2023 2:43 PM CDT [facility] Parainfluenza Virus 2 Not Detected Not Detected 08/03/2023 2:43 PM CDT [facility] Parainfluenza Virus 3 Not Detected Not Detected 08/03/2023 2:43 PM CDT [facility] Parainfluenza Virus 4 Not Detected Not Detected 08/03/2023 2:43 PM CDT [facility] Respiratory Syncytial Virus Not Detected Not Detected 08/03/2023 2:43 PM CDT [facility] Bordetella parapertussis Not Detected Not Detected 08/03/2023 2:43 PM CDT [facility] Bordetella pertussis Not Detected Not Detected 08/03/2023 2:43 PM CDT [facility] Chlamydophila pneumoniae Not Detected Not Detected 08/03/2023 2:43 PM CDT [facility] Mycoplasma pneumoniae Not Detected Not Detected 08/03/2023 2:43 PM CDT [facility] Swab Nasopharyngeal structure / Unknown Non-blood Collection / Unknown 08/03/2023 11:06 AM CDT 08/03/2023 11:26 AM CDT Narrative [facility] - 08/03/2023 2:43 PM CDT The assay is a qualitative multiplex PCR assay to aid in the diagnosis of respiratory pathogens through simultaneous qualitative detection and identification of multiple pathogens directly from nasopharyngeal swabs (MEDICAL SCIENTIFIC LIAISON) from individuals with respiratory symptoms. Testing is performed using the [employer] Diagnostics[employer] Respiratory Panel 2.1 (RP2.1) on the Parachute System. The following organisms are identified using the Compass-EOS RP 2.1 Panel: Adenovirus, Human Coronavirus (229E, [...] verified by the microbiology laboratory at the [facility] (CLIA Accreditation # [id number] and CAP Accreditation # [id number]). Results must be interpreted within the context of all relevant clinical and laboratory findings. Assay should not be used for monitoring response to therapy. Dany Bonilla MD MICROBIOLOGY - [facility]) AL ORDERABLES [facility] Unless otherwise noted, all lab tests performed by: Division of Pathology and Laboratory Medicine [address] [place] [phone] * (ABNORMAL) Urinalysis with Reflex Culture (08/02/2023 5:30 PM CDT) Urine Appearance Cloudy(A) Clear 08/02/19 24 5:50 PM CDT [facility] Comment:This result was prev iously suppressed from the chart. Urine Color Yellow Colorless, Straw, Yellow, Dark Yellow, Straw-Yellow 08/02/2023 5:50 PM CDT [facility] Comment:This result was prev iously suppressed from the chart. Urine Specific [place] 1.011 1.003 - 1.035 08/02/2023 5:50 PM CDT [facility] Comment:This result was prev iously suppressed from the chart. Urine pH 6.0 5.0 - 8.0 08/02/2023 5:50 PM CDT [facility] Comment:This result was prev iously suppressed from the chart. Urine Glucose Negative Negative mg/dL 08/02/2023 5:50 PM CDT [facility] Comment:This result was prev iously suppressed from the chart. Urine Ketones 20(A) Negative mg/dL 08/02/2023 5:50 PM CDT [facility] Comment:This result was prev iously suppressed from the chart. Urine Blood Small(A) Negative 08/02/2023 5:50 PM CDT [facility] Comment:This result was prev iously suppressed from the chart. Urine Protein 30(A) Negative mg/dL 08/02/2023 5:50 PM CDT [facility] Comment:This result was prev iously suppressed from the chart. Urine Bilirubin Negative Negative 5:50 PM CDT [facility] Urine Urobilinogen Negative Negative 08/02/2023 5:50 PM CDT [facility] Urine Nitrite Negative Negative 08/02/2023 5:50 PM CDT [facility] Comment:This result was prev iously suppressed from the chart. Urine Leukocyte Esterase Large(A) Negative 08/02/2023 5:50 PM CDT [facility] Comment:This result was prev iously suppressed from the chart. Urine Mucous Not Seen Not Seen, Trace /HPF 08/02/2023 5:50 PM CDT [facility] Comment:This result was prev iously suppressed from the chart. Urine Bacteria 1+(A) Not Seen /HPF 08/02/2023 5:50 PM CDT [facility] Comment:This result was prev iously suppressed from the chart. Urine Squamous Epithelial Cells Not Seen Not Seen, OCC, Rare /HPF 08/02/2023 5:50 PM CDT [facility] Comment:This result was prev iously suppressed from the chart. Urine WBC 44(H) <=2 /HPF 08/02/2023 5:50 PM CDT [facility] Urine RBC 7(H) <=2 /HPF 08/02/2023 5:50 PM CDT [facility] Urine Voided urine specimen / Unknown Non-blood Collection / Unknown 08/02/2023 5:30 PM CDT 08/02/2023 5:36 PM CDT Narrative [facility] - 08/02/2023 5:50 PM CDT Some reporting parameters within the Urinalysis test have changed due to the implementation of new instrumentation in the Main [place], allowing greater sensitivity of measurement. Urinalysis results reported by the [facility] using existing instrumentation, as well as Urinalysis testing performed manually or by back-up methodology at the main [place], will remain relatively unchanged. New reporting parameters and units will now be reported for all campuses. Sujata Grant MD URINE ORDERABLES [facility] Unless otherwise noted, all lab tests performed by: Division of Pathology and Laboratory Medicine [address] [place] [phone] * Urine Culture (08/02/2023 5:30 PM CDT) Only the most recent of5 resultswithin the time period is included. Urine Culture Normal site елена present. Generally of low significance. Correlate with clinical data and culture history. 08/04/2023 10:13 AM CDT [facility] Urine Voided urine specimen / Unknown Non-blood Collection / Unknown 08/02/2023 5:30 PM CDT 08/02/2023 5:36 PM CDT Sujata Grant MD MICROBIOLOGY - GENER AL ORDERABLES Performing Organization Address City/[facility]/ZIP Co de Phone Number [facility] Unless otherwise noted, all lab tests performed by: Division of Pathology and Laboratory Medicine [address] [place] [phone] * Blood Culture - Peripheral (08/02/2023 12:22 PM CDT) Only the most recent of5 resultswithin the time period is included. Blood Culture No Growth. 08/07/2023 2:01 PM CDT [facility] Blood Peripheral blood specimen / Unknown Venipuncture / Unknown 08/02/2023 12:22 PM CDT 08/02/2023 12:30 PM CDT Sujata Grant MD MICROBIOLOGY - GENER AL ORDERABLES Performing Organization Address City/[facility] de Phone Number [facility] Unless otherwise noted, all lab tests performed by: Division of Pathology and Laboratory Medicine [address] [place] [phone] * EEG (08/01/2023 8:54 PM CDT) Narrative Brooklyn Mckeon MD - 08/01/2023 8:54 PM CDT Brooklyn Mckeon MD 08/02/2023 10:42 AM EEG REPORT Patient: Zari Posadas Age: 52 y.o. Consult Service: Neuro-Oncology Consult Date: August 01, 2023 Returner: BROOKLYN MCKEON MD CLINICAL HISTORY This is 52 y.o. year-old with metastatic lung cancer to the brain. REQUESTING PHYSICIAN Dr. Juliann Reed TECHNIQUE Inpatient bedside study This is a prolonged study from 07/31 3:59 pm until 08/01 10:23 am. STATE Awake/Sleep MEDS Keppra, Ativan 2mg. FINDINGS The background is disorganized. [...] - 99 mg/dL 08/01/2023 2:37 PM CDT [facility] POC Sample Type Capillary 08/01/2023 2:37 PM CDT [facility] Blood 08/01/2023 2:36 PM CDT 08/01/2023 2:37 PM CDT Narrative [facility] - 08/01/2023 2:37 PM CDT Capillary blood [...] methodology. Kalpana Cannon MD POCT ORDERABLES - D PAR[place] [facility] Unless otherwise noted, all lab tests performed by: Division of Pathology and Laboratory Medicine [address] [place] [address], [place] [address] * EKG, 12-Lead (Portable) (07/31/2023) Only the most recent of3 resultswithin the time period is included. Michelle Metzger MD ECG ORDERABLES Performing Organization Address City/[facility]/ZIP Co de Phone Number [facility] * Troponin T (In-House) (07/30/2023 11:52 PM CDT) Pathologist [facility] Troponin T 19 <=19 ng/L 07/31/2023 12:23 AM CDT [facility] Blood Peripheral blood specimen / Unknown Venipuncture / Unknown 07/30/2023 11:52 PM CDT 07/30/2023 11:55 PM CDT Narrative [facility] - 07/31/2023 12:23 AM CDT Reference range [...] MD LAB BLOOD ORDERABLES Performing Organization Address City/[facility]/ZIP Co de Phone Number [facility] Unless otherwise noted, all lab tests performed by: Division of Pathology and Laboratory Medicine [address] [place] [address] * (ABNORMAL) Urinalysis Microscopic Exam (07/30/2023 11:12 PM CDT) Only the most recent of5 resultswithin the time period is included. Urine Mucous Not Seen Not Seen, Trace /HPF 07/30/2023 11:31 PM CDT [facility] Urine Bacteria Not Seen Not Seen /HPF 07/30/2023 11:31 PM CDT [facility] Urine Squamous Epithelial Cells OCC Not Seen, OCC, Rare /HPF 07/30/2023 11:31 PM CDT [facility] Urine WBC 69(H) <=2 /HPF 07/30/2023 11:31 PM CDT [facility] Urine RBC 2 <=2 /HPF 07/30/2023 11:31 PM CDT [facility] Urine Voided urine specimen / Unknown Non-blood Collection / Unknown 07/30/2023 11:12 PM CDT 07/30/2023 11:17 PM CDT Michelle Metzger MD LAB BLOOD ORDERABLES [facility] Unless otherwise noted, all lab tests performed by: Division of Pathology and Laboratory Medicine [address] [place] [phone] * (ABNORMAL) Urinalysis w/Microscopic if Indicated (07/30/2023 11:12 PM CDT) Only the most recent of5 resultswithin the time period is included. Urine Appearance Clear Clear 07/30/19 11:29 PM CDT [facility] Urine Color Straw Colorless, Straw, Yellow, Dark Yellow, Straw-Yello w 07/30/2023 11:29 PM CDT [facility] Urine Specific [place] 1.011 1.003 - 1.035 07/30/2023 11:29 PM CDT [facility] Urine pH 6.0 5.0 - 8.0 07/30/2023 11:29 PM CDT [facility] Urine Glucose Negative Negative mg/dL 07/30/2023 11:29 PM CDT [facility] Urine Ketones Negative Negative mg/dL 07/30/2023 11:29 PM CDT [facility] Urine Blood Small(A) Negative 07/30/2023 11:29 PM CDT [facility] Urine Protein 30(A) Negative mg/dL 07/30/2023 11:29 PM CDT [facility] Urine Bilirubin Negative Negative 11:29 PM CDT [facility] Urine Urobilinogen Negative Negative 07/30/2023 11:29 PM CDT [facility] Urine Nitrite Negative Negative 07/30/2023 11:29 PM CDT [facility] Urine Leukocyte Esterase Moderate(A) Negative 07/30/2023 11:29 PM CDT [facility] Urine Voided urine specimen / Unknown Non-blood Collection / Unknown 07/30/2023 11:12 PM CDT 07/30/2023 11:17 PM CDT Narrative [facility] - 07/30/2023 11:29 PM CDT Some reporting parameters within the Urinalysis test have changed due to the implementation of new instrumentation in the [employer] [place], allowing greater sensitivity of measurement. Urinalysis results reported by the [facility] using existing instrumentation, as well as Urinalysis testing performed manually or by back-up methodology at the main [place], will remain relatively unchanged. New reporting parameters and units will now be reported for all campuses. Michelle Metzger MD URINE ORDERABLES [facility] Unless otherwise noted, all lab tests performed by: Division of Pathology and Laboratory Medicine [address] [place] [phone] * CT Head without Contrast (07/30/2023 10:04 PM CDT) Only the most recent of5 [...] 7.310 - 7.410 07/30/2023 9:20 PM CDT [facility] POC VB pCO2. 38.4(L) 41.0 - 51.0 mmHg 07/30/2023 9:20 PM CDT [facility] POC VB pO2. 23 mmHg 07/30/2023 9:20 PM CDT [facility] POC VB TCO2 23(L) 24 - 29 mmol/L 07/30/2023 9:20 PM CDT [facility] POC VB Bicarb 21.5(L) 23.0 - 28.0 mmol/L 07/30/2023 9:20 PM CDT [facility] POC VB Base Excess -4(L) -2 - 3 mmol/L 07/30/2023 9:20 PM CDT [facility] POC VB O2 Sat 38 % 07/30/2023 9:20 PM CDT [facility] POC VB LAC 1.14 0.90 - 1.70 mmol/L 07/30/2023 9:20 PM CDT [facility] POC FiO2 07/30/2023 9:20 PM CDT [facility] POC Sample Type Venous 07/30/2023 9:20 PM CDT [facility] Blood 07/30/2023 9:03 PM CDT 07/30/2023 9:20 PM CDT Narrative [facility] - 07/30/2023 9:20 PM CDT Method description: [...] Clement MD POCT ORDERABLES - DE VICE [facility] Unless otherwise noted, all lab tests performed by: Division of Pathology and Laboratory Medicine [address] [place] [phone] * Fractionated Bilirubin (07/30/2023 8:55 PM CDT) Only the most recent of4 resultswithin the time period is included. Bilirubin Direct <0.2 0.0 - 0.3 mg/dL 07/30/2023 10:02 PM CDT [facility] Comment:Indocyanine Green (I CG) may cause falsely elevated bilirubin results. Total and direct bilirubin must not be measured from samples containing indocyanine green. Bilirubin Indirect 2023 10:02 PM CDT [facility] Comment:Unable to calculate Indirect Bilirubin result due to some parameters are outside reportable range Bilirubin Total 0.3 0.0 - 1.2 mg/dL 07/30/2023 10:02 PM CDT [facility] Comment: Indocyanine Green (ICG) may cause falsely [...] CDT Michelle Metzger MD LAB BLOOD ORDERABLES [facility] Unless otherwise noted, all lab tests performed by: Division of Pathology and Laboratory Medicine [address] [place] [phone] * (ABNORMAL) Comprehensive Metabolic Panel (07/30/2023 8:55 PM CDT) Only the most recent of15 resultswithin the time period is included. Bilirubin Total 0.3 0.0 - 1.2 mg/dL 07/30/2023 10:02 PM CDT [facility] Comment:Indocyanine Green (I CG) may cause falsely elevated bilirubin results. Total and direct bilirubin must not be measured from samples containing indocyanine green. False elevation of total bilirubin can be seen in patients with IgG concentrations above 28 g/L. eGFR 65 >=60 mL/min/1. 73 sq. m 07/30/2023 10:02 PM CDT [facility] Comment: The eGFRcr is calculated with the [...] - 8.3 gm/dL 07/30/2023 10:02 PM CDT [facility] Calcium Level Total 9.0 8.2 - 10.2 mg/dL 07/30/2023 10:02 PM CDT [facility] Alkaline Phosphatase 97 35 - 104 U/L 07/30/2023 10:02 PM CDT [facility] Albumin Level 3.9 3.5 - 5.2 gm/dL 07/30/2023 10:02 PM CDT [facility] AST 12 <=32 U/L 07/30/2023 10:02 PM CDT [facility] ALT 9 <=33 U/L 07/30/2023 10:02 PM CDT [facility] Sodium Level 142 136 - 145 mmol/L 07/30/2023 10:02 PM CDT [facility] Potassium Level 3.6 3.4 - 4.5 mmol/L 07/30/2023 10:02 PM CDT [facility] Chloride 107 98 - 107 mmol/L 07/30/2023 10:02 PM CDT [facility] CO2 19(L) 22 - 29 mmol/L 07/30/2023 10:02 PM T [facility] Anion Gap 16(H) 4 - 14 mmol/L 07/30/2023 10:02 PM CDT [facility] Creatinine 1.04(H) 0.51 - 0.95 mg/dL 07/30/2023 10:02 PM T [facility] BUN 11 6 - 23 mg/dL 07/30/2023 10:02 PM T [facility] Glucose Level 91 70 - 99 mg/dL 07/30/2023 10:02 PM T [facility] Comment: Effective 10/13/15, the glucose reference intervals have been updated based on [employer] Diabetes [employer] guidelines (Standards of Medical Care [...] CDT Michelle Metzger MD LAB BLOOD ORDERABLES [facility] Unless otherwise noted, all lab tests performed by: Division of Pathology and Laboratory Medicine [address] [place] [phone] * (ABNORMAL) Cardiac Panel (07/30/2023 8:55 PM CDT) Creatine Kinase 53 26 - 192 U/L 07/30/2023 9:36 PM CDT [facility] CKMB <2.0 <=5.3 ng/mL 07/30/2023 9:36 PM CDT [facility] Troponin T 22(H) <=19 ng/L 07/30/2023 9:36 PM CDT [facility] Comment: < 19 ng/L Suggest retest at [...] MD LAB BLOOD ORDERABLES Performing Organization Address City/[facility] Co de Phone Number [facility] Unless otherwise noted, all lab tests performed by: Division of Pathology and Laboratory Medicine [address] [place] [id number] * aPTT (07/30/2023 8:55 PM CDT) Only the most recent of2 resultswithin the time period is included. Activated PTT 33.5 24.1 - 35.5 second(s) 07/30/2023 9:38 PM CDT [facility] Blood Peripheral blood specimen / Unknown Venipuncture / Unknown 07/30/2023 8:55 PM CDT 07/30/2023 9:12 PM CDT Michelle Metzger MD LAB BLOOD ORDERABLES Performing Organization Address [facility] de Phone Number [facility] Unless otherwise noted, all lab tests performed by: Division of Pathology and Laboratory Medicine [address] [place] [address] [id number] * (ABNORMAL) Prothrombin Time with INR (07/30/2023 8:55 PM CDT) Only the most recent of2 resultswithin the time period is included. Prothrombin Time 14.8(H) 11.9 - 14.5 second(s) 07/30/2023 9:38 PM CDT [facility] International Normalization Ratio 1.17(H) 0.87 - 1.12 07/30/2023 9:38 PM CDT [facility] Blood Peripheral blood specimen / Unknown Venipuncture / Unknown 07/30/2023 8:55 PM CDT 07/30/2023 9:12 PM CDT Michelle Metzger MD LAB BLOOD ORDERABLES Performing Organization Address [facility] Co de Phone Number [facility] Unless otherwise noted, all lab tests performed by: Division of Pathology and Laboratory Medicine [address] [place] [address] [phone] * (ABNORMAL) LDH (07/30/2023 8:55 PM CDT) Only the most recent of2 resultswithin the time period is included. LDH 239(H) 135 - 214 U/L 07/30/2023 10:02 PM CDT [facility] Blood Peripheral blood specimen / Unknown Venipuncture / Unknown 07/30/2023 8:55 PM CDT 07/30/2023 9:12 PM CDT Narrative [facility] - 07/30/2023 10:02 PM CDT Results greater than 1651 U/L may not be reliable due to matrix effect with extended dilution as it exceeds the technical service rep's recommended limit. Caution should be exercised when interpreting such values and done in conjunction with clinical context. Michelle Metzger MD LAB BLOOD ORDERABLES Performing Organization Address City/[facility] Co de Phone Number [facility] Unless otherwise noted, all lab tests performed by: Division of Pathology and Laboratory Medicine [address] [place] [address] * Ammonia Level (07/30/2023 8:55 PM CDT) Only the most recent of2 resultswithin the time period is included. Ammonia Level 15 11 - 51 mcmol/L 07/30/2023 9:33 PM CDT [facility] Blood Peripheral blood specimen / Unknown Venipuncture / Unknown 07/30/2023 8:55 PM CDT 07/30/2023 9:13 PM CDT Michelle Metzger MD LAB BLOOD ORDERABLES Performing Organization Address City/State/[facility] Co de Phone Number [facility] Unless otherwise noted, all lab tests performed by: Division of Pathology and Laboratory Medicine [address] [place] [address] [phone] * (ABNORMAL) Potassium Level (07/28/2023 7:10 PM CDT) Potassium Level 2.9(L) 3.4 - 4.5 mmol/L 07/28/2023 7:44 PM CDT [facility] Blood Peripheral blood specimen / Unknown Venipuncture / Unknown 07/28/2023 7:10 PM CDT 07/28/2023 7:13 PM CDT Narrative [facility] - 07/28/2023 7:44 PM CDT Reference range established based on adult population Tammy Archuleta PA-C LAB BLOOD ORDERABLES Performing Organization Address City/[facility]/ZIP Co de Phone Number [facility] Unless otherwise noted, all lab tests performed by: Division of Pathology and Laboratory Medicine [address] [place] [address] [phone] * (ABNORMAL) VBG (07/27/2023 10:29 AM CDT) pH Venous 7.33 7.32 - 7.43 07/27/2023 10:36 AM CDT [facility] P CO2 Venous 40.5(L) 41.0 - 51.0 mmHg 07/27/2023 10:36 AM CDT [facility] P O2 Venous 17 mmHg 07/27/2023 10:36 AM CDT [facility] Bicarbonate Venous 21 21 - 28 mmol/L 07/27/2023 10:36 AM CDT [facility] Base Excess Venous -5(L) -2 - 3 mmol/L 07/27/2023 10:36 AM CDT [facility] Oxygen Saturation Venous 24 % 07/27/2023 10:36 AM CDT [facility] Oxygen FLOW Rate/ FiO2 07/27/2023 10:36 AM CDT [facility] O2 Therapy 07/27/2023 10:36 AM CDT [facility] Blood Peripheral blood specimen / Unknown Venipuncture / Unknown 07/27/2023 10:29 AM CDT 07/27/2023 10:34 AM CDT Tammy Archuleta PA-C LAB BLOOD ORDERABLES Performing Organization Address City/[facility]/ZIP Co de Phone Number [facility] Unless otherwise noted, all lab tests performed by: Division of Pathology and Laboratory Medicine [address] [place] [address] [phone] * (ABNORMAL) Lactoferrin Detection (07/25/2023 10:28 PM CDT) Only the most recent of2 resultswithin the time period is included. Pathologist [facility] Lactoferrin - Interpretation Positive( A) Negative 07/26/2023 8:02 AM CDT [facility] Comment:Assay positive for l actoferrin indicating inflammatory cells present in fecal specimen. Recommend clinical correlation and further testing to identify cause of inflammation. Stool Rectum structure / Unknown Non-blood Collection / Unknown 07/25/2023 10:28 PM CDT 07/25/2023 11:16 PM CDT Narrative [facility] - 07/26/2023 8:02 AM CDT Testing is [...] verified by the microbiology laboratory at the [facility]. Results must be interpreted within the context of all relevant clinical and laboratory findings. Tammy Archuleta PA-C MICROBIOLOGY - [facility] AL ORDERABLES [facility] Unless otherwise noted, all lab tests performed by: Division of Pathology and Laboratory Medicine [address] [place] [address] [phone] * (ABNORMAL) Calprotectin, Stool (07/25/2023 10:21 PM CDT) Only the most recent of2 resultswithin the time period is included. [facility] Calprotectin [facility] 89.3(H) <50.0 (Normal) mcg/g 07/30/2023 11:40 AM CDT [facility] Comment: Interpretation: Borderline (50.0-120 mcg/g) Test Performed by: [address] [address] Job Checker: Shad Metzger M.D. Ph.D.; CLIA# [id number] Stool Rectum structure / Unknown Non-blood Collection / Unknown 07/25/2023 10:21 PM CDT 07/25/2023 11:16 PM CDT Tammy Archuleta PA-C MICROBIOLOGY - GENER AL ORDERABLES [facility] * CT Chest Abdomen Pelvis with Contrast (07/23/2023 12:02 PM CDT) Only the most recent of4 resultswithin the time period is included. Anatomical [...] - 192 U/L 07/23/2023 10:35 AM CDT [facility] Blood Peripheral blood specimen / Unknown Venipuncture / Unknown 07/23/2023 9:47 AM CDT 07/23/2023 9:47 AM CDT Dalia E Cassandra MEZA LAB BLOOD ORDERABL ES Performing Organization Address [facility] Co de Phone Number [facility] Unless otherwise noted, all lab tests performed by: Division of Pathology and Laboratory Medicine [address] [place] [address] 36769 * Hemoglobin A1c (07/05/2023 5:51 AM CDT) Hemoglobin A1c 5.3 4.3 - 5.6 % 07/05/2023 8:26 AM CDT [facility] Blood Peripheral blood specimen / Unknown Venipuncture / Unknown 07/05/2023 5:51 AM CDT 07/05/2023 6:18 AM CDT Narrative [facility] - 07/05/2023 8:26 AM CDT HbA1c values >=6.5% are diagnostic of diabetes mellitus. Diagnosis should be confirmed by repeat testing. Therapeutic Action suggested: >8.0% HbA1c; Goal of therapy: <7.0% HbA1c Monica Dominguez SUSANA LAB BLOOD ORDERABLES [facility] Unless otherwise noted, all lab tests performed by: Division of Pathology and Laboratory Medicine [address] [place] [address] [id number] * EEG (07/04/2023 7:57 PM CDT) Narrative Brooklyn Mckeon MD - 07/04/2023 7:57 PM CDT Brooklyn Mckeon MD 07/04/2023 8:01 PM EEG REPORT Patient: Zari Posadas Age: 52 y.o. Consult Service: Neuro-Oncology Consult Date: July 04, 2023 Returner: BROOKLYN MCKEON MD CLINICAL HISTORY This is 52 y.o. year-old with metastatic lung cancer to the brain. REQUESTING PHYSICIAN Dr. Kalpana Cannon TECHNIQUE Inpatient bedside study STATE Awake/Sleep MEDS [facility] FINDINGS The background is better organized on [...] ABORh A POS 07/03/2023 6:55 PM CDT [facility] Blood Peripheral blood specimen / Unknown 07/03/2023 6:54 PM CDT 07/03/2023 6:54 PM CDT Zuri Farr MD BLOOD BANK TEST DOTTIE SESAY [facility] [address] [facility] [id number] [place] [address] * Type and Screen (07/03/2023 3:34 PM CDT) ABORh A POS 07/03/2023 2:51 PM CDT [facility] ABSC Negative 07/03/2023 2:51 PM CDT [facility] Clot Expiration 07/06/2023 23:59 07/03/2023 2:51 PM CDT [facility] Historical Record Check Complete 07/03/2023 2:51 PM CDT [facility] Blood Peripheral blood specimen / Unknown Venipuncture / Unknown 07/03/2023 3:34 PM CDT 07/03/2023 6:32 PM CDT Zuri Farr MD BLOOD BANK TEST DOTTIE SESAY [facility] [address] [place] [address] [id number] [place] [address] * CKMB (07/03/2023 3:34 PM CDT) CKMB 3.9 <=5.3 ng/mL 07/03/2023 7:04 PM CDT [facility] Blood Peripheral blood specimen / Unknown Venipuncture / Unknown 07/03/2023 3:34 PM CDT 07/03/2023 6:32 PM CDT Abhijit Farr MD LAB BLOOD ORDERABLES Performing Organization Address City/[facility]/ZIP Co de Phone Number [facility] Unless otherwise noted, all lab tests performed by: Division of Pathology and Laboratory Medicine [address] [place] [address] [phone] * (ABNORMAL) Transferrin with TIBC (06/30/2023 4:26 AM CDT) Transferrin 167(L) 200 - 360 mg/dL 06/30/2023 7:41 AM CDT [facility] Total Iron Binding Capacity 234(L) 250 - 450 mcg/dL 06/30/2023 7:41 AM CDT [facility] Blood Peripheral blood specimen / Unknown Venipuncture / Unknown 06/30/2023 4:26 AM CDT 06/30/2023 4:41 AM CDT Isma Santoyo MD LAB BLOOD ORDERABL ES [facility] Unless otherwise noted, all lab tests performed by: Division of Pathology and Laboratory Medicine [address] [place] [address] [phone] * Iron Level (06/30/2023 4:26 AM CDT) Iron Level 43 37 - 145 mcg/dL 06/30/2023 7:41 AM CDT [facility] Is patient fasting? 06/30/2023 7:41 AM CDT [facility] Blood Peripheral blood specimen / Unknown Venipuncture / Unknown 06/30/2023 4:26 AM CDT 06/30/2023 4:41 AM CDT Isma Santoyo MD LAB BLOOD ORDERABL ES Performing Organization Address City/[facility] Co de Phone Number [facility] Unless otherwise noted, all lab tests performed by: Division of Pathology and Laboratory Medicine [address] [place] [address]15[address] * Ferritin Level (06/30/2023 4:26 AM CDT) Ferritin Level 18 13 - 150 ng/mL 06/30/2023 7:41 AM CDT [facility] Blood Peripheral blood specimen / Unknown Venipuncture / Unknown 06/30/2023 4:26 AM CDT 06/30/2023 4:41 AM CDT Narrative [facility] - 06/30/2023 7:41 AM CDT Reference range established for age 17 - 60 years Isma Santoyo MD LAB BLOOD ORDERABL ES [facility] Unless otherwise noted, all lab tests performed by: Division of Pathology and Laboratory Medicine [address] [place] [id number] * VB Lactate (06/27/2023 5:59 PM CDT) Venous Lactate 0.6 0.5 - 1.6 mmol/L 06/27/2023 6:08 PM CDT [facility] Oxygen FLOW Rate/ FiO2 06/27/2023 6:08 PM CDT [facility] O2 Therapy NONE 06/27/2023 6:08 PM CDT [facility] Blood Peripheral blood specimen / Unknown Venipuncture / Unknown 06/27/2023 5:59 PM CDT 06/27/2023 6:07 PM CDT Amanda Pearson MD LAB BLOOD ORDERABLES [facility] Unless otherwise noted, all lab tests performed by: Division of Pathology and Laboratory Medicine [address] [place] [id number] * (ABNORMAL) ESR (06/27/2023 5:59 PM CDT) Pathologist [facility] Sedimentation Rate 104(H) <=30 mm/hr 2023 7:27 PM CDT [facility] Blood Peripheral blood specimen / Unknown Venipuncture / Unknown 06/27/2023 5:59 PM CDT 06/27/2023 6:04 PM CDT Amanda Pearson MD LAB BLOOD ORDERABLES Performing Organization Address City/[facility]/ZIP Co de Phone Number [facility] Unless otherwise noted, all lab tests performed by: Division of Pathology and Laboratory Medicine [address] [place] [address] 13202 * CRP (06/27/2023 5:59 PM CDT) Pathologist [facility] CRP (C Reactive Protein) 13.81 mg/L 06/27/2023 7:02 PM CDT [facility] Blood Peripheral blood specimen / Unknown Venipuncture / Unknown 06/27/2023 5:59 PM CDT 06/27/2023 6:04 PM CDT Narrative [facility] - 06/27/2023 7:02 PM CDT Adult Reference ranges for HS CRP assay are as follows: Reference ranges when used to assess cardiac risk: <1.00 mg/L Low cardiovascular risk 1.00-3.00 mg/L Average cardiovascular risk >3.00 mg/L High cardiovascular risk Reference ranges when used to assess inflammatory responses: Less than or equal to 10.00 mg/L. Amanda Pearson MD LAB BLOOD ORDERABLES [facility] Unless otherwise noted, all lab tests performed by: Division of Pathology and Laboratory Medicine [address] [place] [address] [phone] * (ABNORMAL) Lipid panel (04/18/2023 2:50 PM [facility]) Cholesterol Total 276(H) <=199 mg/dL 04/18/2023 4:02 PM [facility] Comment: ATP III Classification of Total Cholesterol - Primary Target of Therapy (in mg/dL): <200 Desirable 200-239 Borderline high >=240 High Triglyceride 99 <=149 mg/dL 04/18/2023 4:02 PM [facility] Comment: ATP III Classification of Serum Triglycerides Primary Target of Therapy (in mg/dL): <150 Normal 150-199 Borderline high 200-499 High >=500 Very high Non-fasting triglycerides >200 mg/dL may be followed up with a fasting Lipid Panel. Calculated LDL-C may be falsely decreased when non-fasting triglycerides >200 mg/dL. HDL Cholesterol 95 >=40 mg/dL 04/18/2023 4:02 PM [facility] LDL Cholesterol 161(H) <=100 mg/dL 04/18/2023 4:02 PM [facility] Comment: ATP III Classification of LDL Cholesterol Primary Target of Therapy (in mg/dL): <100 Optimal 100-129 Near optimal/above optimal 130-159 Borderline high 160-189 High >=190 Very high Very Low Density Lipoprotein 20 mg/dL 04/18/2023 4:02 PM [facility] Is patient fasting? No 04/18/2023 4:02 PM [facility] [place] Comment:last meal longer ray n than 4 hrs prior Blood Peripheral blood specimen / Unknown Venipuncture / Unknown 04/18/2023 2:50 PM QUARRYING MANAGER 04/18/2023 2:52 PM [facility] Sindi Casiano MD LAB BLOOD ORDERABLES [facility] Unless otherwise noted, all lab tests performed by: Division of Pathology and Laboratory Medicine [address] [place] [address] [facility] Unless otherwise noted, all lab tests performed by: Division of Pathology and Laboratory Medicine [facility] [place] [address] * (ABNORMAL) POC Creatinine (04/16/2023 4:39 PM QUARRYING MANAGER) Only the most recent of2 resultswithin the time period is included. POC Creatinine 1.2 0.6 - 1.3 mg/dL 04/16/2023 4:41 PM QUARRYING MANAGER [facility] Comment:Medications, especia lly hydroxyurea or supplements, such as ascorbate, can interfere with test results causing a falsely and significantly higher result than expected. If a problem is suspected with a patient's result, a sample should be sent to the laboratory for confirmatory testing. POC eGFR 55(L) >=60 mL/min/1.7 3 sq. m 04/16/2023 4:41 PM QUARRYING MANAGER [facility] Comment: The eGFRcr is calculated with the [...] criteria for CKD. Blood 04/16/2023 4:39 PM QUARRYING MANAGER 04/16/2023 4:41 PM QUARRYING MANAGER Narrative [facility] - 04/16/2023 4:41 PM QUARRYING MANAGER Method description: The i-STAT is an analyzer [...] concentration by an electrochemical assay. Dalia Weiner APRN POCT ORDERABLES - DEVICE [facility] Unless otherwise noted, all lab tests performed by: Division of Pathology and Laboratory Medicine [address] [place] [address] 15483 * MRI Brain with and without Contrast - Frameless Gamma Knife (04/09/2023 8:55 AM QUARRYING MANAGER) Anatomical Region Laterality Modality Head Magnetic Resonan ce 04/09/2023 10:1 7 AM QUARRYING MANAGER Impressions 04/09/2023 10:38 AM QUARRYING MANAGER No new metastasis or leptomeningeal disease. Several lesions demonstrate interval progression with stability of many other enhancing lesions. ACTIONABLE ITEMS/RECOMMENDATIONS: None. Narrative 04/09/2023 10:38 AM QUARRYING MANAGER FULL RESULT: Examination: MRI BRAIN WITH AND [...] lesions. ACTIONABLE ITEMS/RECOMMENDATIONS: None. Saira Carrasquillo APRN [facility] MRI ORDERABLES * MRI Brain with and without Contrast - ABTI (02/14/2023 11:23 AM QUARRYING MANAGER) Anatomical Region Laterality Modality Head Magnetic Resonan ce 02/17/2023 3:26 PM QUARRYING MANAGER Impressions 02/17/2023 3:53 PM QUARRYING MANAGER 1. 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 2. Left perfusion abnormalities expected for the relatively growing and enhancing right periatrial enhancing lesion, to be followed for active metastasis. 3. Other small enhancing lesions are stable. ACTIONABLE ITEMS/RECOMMENDATIONS: None. Narrative 02/17/2023 3:53 PM QUARRYING MANAGER FULL RESULT: Examination: MRI BRAIN W WO [...] 10:34 AM CDT) Only the most recent of2 resultswithin the time period is included. Creatinine 1.38(H) 0.51 - 0.95 mg/dL [facility] Blood 11/29/2022 10:3 4 AM CDT 11/29/2022 10:48 AM CDT Dalia Weiner APRN LAB BLOOD ORDERABL ES [facility] Unless otherwise noted, all lab tests performed by: Division of Pathology and Laboratory Medicine [address] [place] [id number] * (ABNORMAL) Glomerular Filtration Rate (11/29/2022 10:34 AM CDT) Only the most recent of2 resultswithin the time period is included. eGFR 46(L) >=60 mL/min/1.7 3 sq. m [facility] Comment: The eGFRcr is calculated with the [...] LAB BLOOD ORDERABL ES Performing Organization Address City/[facility] Co de Phone Number [facility] Unless otherwise noted, all lab tests performed by: Division of Pathology and Laboratory Medicine [address] [place] [address] [phone] * BUN (11/29/2022 10:34 AM CDT) Only the most recent of2 resultswithin the time period is included. BUN 13 6 - 23 mg/dL [facility] Blood 11/29/2022 10:3 4 AM CDT 11/29/2022 10:48 AM CDT Dalia Weiner APRN LAB BLOOD ORDERABL ES Performing Organization Address [facility] de Phone Number [facility] Unless otherwise noted, all lab tests performed by: Division of Pathology and Laboratory Medicine [address] [place] [address] 09832 * ALT (11/29/2022 10:34 AM CDT) Only the most recent of2 resultswithin the time period is included. ALT 7 <=33 U/L [facility] Blood 11/29/2022 10:3 4 AM CDT 11/29/2022 10:48 AM CDT Dalia Weiner APRN LAB BLOOD ORDERABL ES Performing Organization Address City/[facility] Co de Phone Number [facility] Unless otherwise noted, all lab tests performed by: Division of Pathology and Laboratory Medicine [address] [place] [address] 04254 * Aspartate Aminotransferase (11/29/2022 10:34 AM CDT) Only the most recent of2 resultswithin the time period is included. AST 15 <=32 U/L [facility] Blood 11/29/2022 10:3 4 AM CDT 11/29/2022 10:48 AM CDT Dalia Weiner APRN LAB BLOOD ORDERABL ES Performing Organization Address [facility] Co de Phone Number [facility] Unless otherwise noted, all lab tests performed by: Division of Pathology and Laboratory Medicine [address] [place] [address] [id number] * Total Protein (11/29/2022 10:34 AM CDT) Only the most recent of2 resultswithin the time period is included. Total Protein 6.8 6.4 - 8.3 g/dL [facility] Blood 11/29/2022 10:3 4 AM CDT 11/29/2022 10:48 AM CDT Dalia Weiner APRN LAB BLOOD ORDERABL ES Performing Organization Address [facility] Phone Number [facility] Unless otherwise noted, all lab tests performed by: Division of Pathology and Laboratory Medicine [address] [place] [address] [id number] * Alkaline Phosphatase (11/29/2022 10:34 AM CDT) Only the most recent of2 resultswithin the time period is included. Alk Phos 76 35 - 104 U/L [facility] Blood 11/29/2022 10:3 4 AM CDT 11/29/2022 10:48 AM CDT Dalia Weiner APRN LAB BLOOD ORDERABL ES Performing Organization Address [facility] de Phone Number [facility] Unless otherwise noted, all lab tests performed by: Division of Pathology and Laboratory Medicine [address] [place] [address] [phone] * (ABNORMAL) Glucose Level (11/29/2022 10:34 AM CDT) Only the most recent of2 resultswithin the time period is included. Glucose Level 61(L) 70 - 99 mg/dL [facility] Comment: Effective 10/13/15, the glucose reference intervals have been updated based on [place] Diabetes Association guidelines (Standards of Medical Care [...] LAB BLOOD ORDERABL ES Performing Organization Address City/[facility] Co de Phone Number [facility] Unless otherwise noted, all lab tests performed by: Division of Pathology and Laboratory Medicine [address] [place] [address] [phone] * Calcium Level (11/29/2022 10:34 AM CDT) Only the most recent of2 resultswithin the time period is included. Calcium Lvl 9.2 8.4 - 10.2 mg/dL [facility] Blood 11/29/2022 10:3 4 AM CDT 11/29/2022 10:48 AM CDT Dalia Weiner APRN LAB BLOOD ORDERABL ES Performing Organization Address City/[facility] Co de Phone Number [facility] Unless otherwise noted, all lab tests performed by: Division of Pathology and Laboratory Medicine [address] [place] [phone] * Albumin Level (11/29/2022 10:34 AM CDT) Only the most recent of2 resultswithin the time period is included. Albumin Lvl 4.1 3.5 - 5.2 gm/dL [facility] Blood 11/29/2022 10:3 4 AM CDT 11/29/2022 10:48 AM CDT Dalia Weiner SUSANA LAB BLOOD ORDERABL ES Performing Organization Address [facility] Co de Phone Number [facility] Unless otherwise noted, all lab tests performed by: Division of Pathology and Laboratory Medicine [address] [place] [phone] * (ABNORMAL) Electrolyte Panel (11/29/2022 10:34 AM CDT) Only the most recent of2 resultswithin the time period is included. Sodium Lvl 140 136 - 145 mEq/L [facility] Potassium Lvl 3.6 3.5 - 5.1 mEq/L [facility] Chloride 108(H) 98 - 107 mEq/L [facility] CO2 24 22 - 29 mEq/L [facility] Anion Gap 8 4 - 14 mEq/L [facility] Blood 11/29/2022 10:3 4 AM CDT 11/29/2022 10:48 AM CDT Dalia Weiner APRN LAB BLOOD ORDERABL ES Performing Organization Address [facility] Co de Phone Number [facility] Unless otherwise noted, all lab tests performed by: Division of Pathology and Laboratory Medicine [address] [place] [phone] after 09/26/2022 Advance Directives Documents on File Type Date Recorded 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 Advance Directives: Medical Power of Nicker And Breaker 06/28/2023 Medical Power of Att orney * [...] 3:39 PM 10/21/2021 6:26 PM Care Teams Order Taker Relationship Specialty Start Date End Date Luisana Lucio MD [address] [place] [address] [email or web address] PCP - External Primary Care Provider Obstetrics/Gynecology 07/17/16 Roseann Jensen MD [address] [place] [address] [phone] [email or web address] PCP - External Referring Otolaryngology 07/19/16 Sindi Casiano MD [address] [place] [phone] [email or web address] PCP - General Thoracic Medicine 11/24/20 Ajith Fink MD [address] [place] [phone] [email or web address] Consulting Physician Nephrology 08/12/21 Annette Kang MD [address] [place] [phone] [email or web address] Consulting Physician Gastroenterology, Hepatology and Nutrition 12/03/20 Frannie Emery MD [address] [place] [phone] [email or web address] Consulting Physician Neurosurgery 05/21/23 Rajinder English APRN [address] [place] [phone] [email or web address] Nurse Practitioner Neurosurgery 05/21/23
--- NOTE | 2023-09-26 16:36 | RAD REPORT ---
EXAM DESCRIPTION: RAD - Tib Fib Left - 09/26/2023 4:24 pm CLINICAL HISTORY: PAIN COMPARISON: Foot Left 3 View dated 09/26/2023 FINDINGS/IMPRESSION: No acute fracture. No malalignment. Plantar aspect calcaneal spurs.
--- NOTE | 2023-09-26 16:37 | RAD REPORT ---
EXAM DESCRIPTION: RAD - Foot Left 3 View - 09/26/2023 4:23 pm CLINICAL HISTORY: PAIN COMPARISON: No comparisons FINDINGS/IMPRESSION: No acute fracture. No malalignment. Dorsal aspect calcaneal spurs. Subtalar d egenerative changes.
[2023-09-26 16:38] LABS: Absolute Eosinophils 0.3 K/uL (0-0.5); Absolute Lymphocytes (CBC) 1.1 K/uL (0.7-4.9); Absolute Monocytes 0.6 K/uL (0.1-1.3); Absolute Neutrophil 3.8 K/uL (1.8-8.0); Basophils % 0.8 % (0-1.3); Eosinophils % 4.6 % (0-4.4); Hematocrit 31.9 % (36.0-45.0); Hemoglobin 10.5 g/dL (12.0-15.0); Lymphocytes % 18.9 % (15.3-44.8); MCH 30.2 pg (27.0-35.0); MCHC 32.8 g/dL (32.0-36.0); MPV 7.8 fL (7.6-11.3); Monocytes % 10.3 % (3.3-12.3); Neutrophils % 65.4 % (41.7-73.7); Nucleated Red Blood Cells % 0.2 % (0-0); Platelets 258 thou/uL (152-406); RBC Red Blood Cell Count 3.47 M/uL (3.86-4.86); Red Cell Distribution Width 16.1 % (12.1-15.2)
--- NOTE | 2023-09-26 16:40 | RAD REPORT ---
EXAM DESCRIPTION: RAD - C Spine Ap/Lat - 09/26/2023 4:23 pm CLINICAL HISTORY: PAIN COMPARISON: No comparisons FINDINGS/IMPRESSION: No acute fracture. Trace anterolisthesis of C4 on C5. Mild to moderate disc hei ght loss at C5-6 and C6-7. Mild endplate spurring is also present. Loss of the normal cervical lordos is. Craniotomy changes noted.
[2023-09-26] MEDS ORDERED: HYDROCODONE/APAP 10/325 TAB ONE (17:35)
--- NOTE | 2023-09-26 17:53 | EDPHYS ---
Physician Documentation [facility] Name: Zari Posadas Age: 52 yrs Sex: Female : 1970 Arrival Date: 09/26/2023 Time: 15:31 Bed 4 Private MD: ED Physician Armaan Ruiz HPI: 09/25 17:18 This 52 yrs old Female presents to ER via EMS with complaints of Ankle Injury. rn 17:18 The patient presents with an injury, pain. The complaints affect the left ankle. Onset: rn The symptoms/episode began/occurred today. Associated signs and symptoms: Pertinent negatives: warmth, weakness. Severity of symptoms: At their worst the symptoms were mild, in the emergency department the symptoms are unchanged. The patient has not experienced similar symptoms in the past. Patient reports fall today, injured left foot. Unable to get up due to the pain. Did not have her phone with her so could not call for help. Denies any other injury. Has active cancer and reports neck pain but not new. No LOC or head injury.. Historical: - Allergies: 15:38 ambien; ll1 - PMHx: 15:38 brain cancer (Lung Cancer); Lung Cancer; ll1 - Immunization history:: Adult Immunizations up to date. - Infectious Disease History:: Denies. - Social history:: Smoking status: Patient denies any tobacco usage or history of. - Family history:: not pertinent. - Hospitalizations: : No recent hospitalization is reported. ROS: 17:18 Constitutional: Negative for fever, chills, and weight loss, Cardiovascular: Negative rn for chest pain, palpitations, and edema, Respiratory: Negative for shortness of breath, cough, wheezing, and pleuritic chest pain, Abdomen/GI: Negative for abdominal pain, nausea, vomiting, diarrhea, and constipation, Back: Negative for injury and pain, MS/Extremity: Positive for left ankle and foot pain Skin: Negative for injury, rash, and discoloration, Neuro: Negative for headache, weakness, numbness, tingling, and seizure, Exam: 17:18 Constitutional: This is a well developed, well nourished patient who is awake, alert, rn and in no acute distress. Head/Face: Normocephalic, atraumatic. ENT: No intraoral injury noted Neck: No midline cervical tenderness Cardiovascular: Regular rate and rhythm. No pulse deficits. Respiratory: No increased work of breathing, no retractions or nasal flaring. Abdomen/GI: Soft, nontender Back: No spinal tenderness MS/ Extremity: Pulses equal, no cyanosis. Neurovascular intact. Full, normal range of motion. Equal circumference. Abrasions and mild swelling to the dorsum of the left foot, no laceration, no significant deformity. No focal bony tenderness Neuro: Awake and alert, GCS 15, oriented to person, place, time, and situation. Cranial nerves II-XII grossly intact. Motor strength 5/5 in all extremities. Sensory grossly intact. Cerebellar exam normal. Normal gait. Vital Signs: 15:38 BP 115 / 61; Pulse 78; Resp 18; Temp 98.1(TE); Pulse Ox 99% on R/A; Weight 75.3 kg; ld1 Height 5 ft. 3 in. ; Pain 7/10; 16:46 BP 109 / 75; Pulse 73; Resp 18; Pulse Ox 99% on R/A; ld1 18:04 BP 112 / 79; Pulse 71; Resp 18; Pulse Ox 99% on R/A; ld1 15:38 Body Mass Index 29.41 (75.30 kg, 160.02 cm) ld1 15:38 Pain Scale: Adult ld1 MDM: 15:39 Patient medically screened. rn 17:52 Differential diagnosis: fracture, sprain. Data reviewed: vital signs, nurses notes, rn radiologic studies, CT scan, plain films, and as a result, I will discharge patient. Counseling: I had a detailed discussion with the patient and/or guardian regarding the historical points, exam findings, and any diagnostic results supporting the discharge/admit diagnosis, radiology results, the need for outpatient follow up, to return to the emergency department if symptoms worsen or persist or if there are any questions or concerns that arise at home. Special discussion: I discussed with the patient/guardian in detail that at this point there is no indication for admission to the hospital. It is understood, however, that if the symptoms persist or worsen the patient needs to return immediately for re-evaluation. ED course: X-ray left foot images negative for acute fracture or dislocation per my interpretation.. 09/25 15:46 Order name: CBC with Diff; Complete Time: 16:56 rn 09/25 15:46 Order name: Basic Metabolic Panel; Complete Time: 16:58 rn 09/25 15:46 Order name: XRAY C Spine Ap/lat; Complete Time: 16:56 rn 09/25 15:46 Order name: XRAY Foot LEFT 3 View; Complete Time: 16:56 rn 09/25 15:46 Order name: XRAY Tib Fib LEFT; Complete Time: 16:56 rn 09/25 15:46 Order name: IV Start; Complete Time: 16:46 rn Administered Medications: 16:46 Drug: NS 0.9% IV 500 ml IV at bolus once Route: IV; Rate: bolus; Site: right ld1 antecubital; 17:43 Drug: [place] PO 10 mg-325 mg 1 tabs PO once Route: PO; ld1 Disposition Summary: 09/26/23 17:53 Discharge Ordered Notes: Location: Home rn Problem: new rn Symptoms: have improved rn Condition: Stable rn Diagnosis - Contusion of left foot rn - Other sprain of left foot rn Followup: rn - With: Private Physician - When: As needed - Reason: Recheck today's complaints, Re-evaluation by your physician Discharge Instructions: - Discharge Summary Sheet rn - Ankle Sprain rn - Foot Contusion rn Forms: - Medication Reconciliation Form rn - 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 EDMS EDMS 15:46 15:46 Foot Left 3 View+RAD.RAD.BRZ ordered. EDMS EDMS 15:46 15:46 Tib Fib Left+RAD.RAD.BRZ ordered. EDMS EDMS 15:46 15:46 CBC+H.LAB.BRZ ordered. EDMS EDMS 15:46 15:46 BASIC METABOLIC PANEL+C.LAB.BRZ ordered. EDMS EDMS
--- NOTE | 2023-09-26 17:53 | ER ---
Nurse's Notes [facility] Name: Zari Posadas Age: 52 yrs Sex: Female : 1970 Arrival Date: 09/26/2023 Time: 15:31 Bed 4 Private MD: Diagnosis: Contusion of left foot;Other sprain of left foot Presentation: 09/25 15:38 Coronavirus screen: At this time, the client does not indicate any symptoms associated ld1 with coronavirus-19. Ebola Screen: No symptoms or risks identified at this time. Initial Sepsis Screen: Does the patient meet any 2 criteria? No. Patient's initial sepsis screen is negative. Does the patient have a suspected source of infection? No. Patient's initial sepsis screen is negative. Risk Assessment: Do you want to hurt yourself or someone else? Patient reports no desire to harm self or others. Onset of symptoms was September 26, 2023. 15:38 Acuity: TYSHAWN 4 ld1 15:38 Method Of Arrival: EMS: [place] [id number] 15:39 Chief complaint: Patient states: Had a syncopal event last night while trying to go to [facility] the restroom. Reports being on the floor all night, scooted herself to phone to call for help. Reports L foot pain with abrasion when she fell. Chief complaint: EMS states: Forced entry into home. Found on floor sitting on buttocks. BP 90's/60's, HR 106. Coronavirus screen: Client denies travel out of the [place] in the last 14 days. At this time, the client does not indicate any symptoms associated with coronavirus-19. Ebola Screen: Patient denies travel to an Ebola-affected area in the 21 days before illness onset. Initial Sepsis Screen: Does the patient meet any 2 criteria? No. Patient's initial sepsis screen is negative. Does the patient have a suspected source of infection? No. Patient's initial sepsis screen is negative. Risk Assessment: Do you want to hurt yourself or someone else? Patient reports no desire to harm self or others. Onset of symptoms was September 25, 2023. 15:39 Method Of Arrival: EMS: [place] [id number] 15:39 Acuity: TYSHAWN 2 ll1 Triage Assessment: 15:38 General: Appears in no apparent distress. comfortable, Behavior is calm, cooperative, ld1 appropriate for age. Pain: Complains of pain in left foot and left leg Pain does not radiate. Pain currently is 8 out of 10 on a pain scale. Quality of pain is described as throbbing, Pain began 1 day ago. Is continuous. EENT: No signs and/or symptoms were reported regarding the EENT system. Neuro: Level of Consciousness is awake, alert, obeys commands, Oriented to person, place, time, situation, Appropriate for age. Cardiovascular: Capillary refill < 3 seconds Patient's skin is warm and dry. Respiratory: Airway is patent Respiratory effort is even, unlabored. GI: Abdomen is round non-distended. : No signs and/or symptoms were reported regarding the genitourinary system. Derm: No signs and/or symptoms reported regarding the dermatologic system. Musculoskeletal: Reports pain in left foot. Historical: - Allergies: 15:38 ambien; ll1 - PMHx: 15:38 brain cancer (Lung Cancer); Lung Cancer; ll1 - Immunization history:: Adult Immunizations up to date. - Infectious Disease History:: Denies. - Social history:: Smoking status: Patient denies any tobacco usage or history of. - Family history:: not pertinent. - Hospitalizations: : No recent hospitalization is reported. Screenin:40 [facility] ED Fall Risk Assessment (Adult) History of falling in the last 3 months, ld1 including since admission Yes- single mechanical fall (1 pt) Confusion or Disorientation No (0 pts) Intoxicated or Sedated No (0 pts) Impaired Gait No (0 pts) Mobility Assist Device Used No (0 pt) Altered Elimination No (0 pt) Score/Fall Risk Level 0 - 2 = Low Risk Oriented to surroundings, Maintained a safe environment, Educated pt \T\ family on fall prevention, incl call for assistance when getting out of bed, Assessed \T\ reinforced patient's understanding of fall precautions, Provided non-skid footwear, Hourly rounding (assess needs \T\ fall precautionary measures) done, Used ambulatory aids as needed (educated on \T\ assisted with), Used gait belt as appropriate. Abuse screen: Denies threats or abuse. Denies injuries from another. Nutritional screening: No deficits noted. Nutritional screening: No deficits noted. Tuberculosis screening: No symptoms or risk factors identified. Assessment: 15:40 Reassessment: See triage assessment. ld1 16:30 Reassessment: Patient appears in no apparent distress at this time. Patient and/or ld1 family updated on plan of care and expected duration. Pain level reassessed. Patient states symptoms have not improved. 18:04 Reassessment: Patient appears in no apparent distress at this time. No changes from ld1 previously documented assessment. Patient and/or family updated on plan of care and expected duration. Pain level reassessed. Patient states symptoms have improved. Vital Signs: 15:38 BP 115 / 61; Pulse 78; Resp 18; Temp 98.1(TE); Pulse Ox 99% on R/A; Weight 75.3 kg; ld1 Height 5 ft. 3 in. ; Pain 7/10; 16:46 BP 109 / 75; Pulse 73; Resp 18; Pulse Ox 99% on R/A; ld1 18:04 BP 112 / 79; Pulse 71; Resp 18; Pulse Ox 99% on R/A; ld1 15:38 Body Mass Index 29.41 (75.30 kg, 160.02 cm) ld1 15:38 Pain Scale: Adult ld1 ED Course: 15:38 Patient arrived in ED. ld1 15:38 Arm band placed on Patient placed in an exam room, on a stretcher. ll1 15:39 Triage completed. ld1 15:39 Armaan Ruiz MD is Attending Physician. rn 15:40 Patient has correct armband on for positive identification. Placed in gown. Bed in low ld1 position. Call light in reach. Side rails up X2. Pulse ox on. NIBP on. Door closed. Noise minimized. Warm blanket given. 15:40 No provider procedures requiring assistance completed. Maintain EMS IV. Dressing ld1 intact. Good blood return noted. Site clean \T\ dry. Gauge \T\ site: 18G RAC. 15:59 Jojo Chou, RN is Primary Nurse. iw 16:24 XRAY C Spine Ap/lat In Process Unspecified. EDMS 16:24 XRAY Foot LEFT 3 View In Process Unspecified. EDMS 16:24 XRAY Tib Fib LEFT In Process Unspecified. EDMS 16:46 Assisted to bedside commode. ld1 18:05 IV discontinued, intact, bleeding controlled, No redness/swelling at site. ld1 Administered Medications: 16:46 Drug: NS 0.9% IV 500 ml IV at bolus once Route: IV; Rate: bolus; Site: right ld1 antecubital; 17:43 Drug: [place] PO 10 mg-325 mg 1 tabs PO once Route: PO; ld1 Medication: 15:40 VIS not applicable for this client. ld1 Outcome: 17:53 Discharge ordered by . rn 18:05 Discharged to home via wheelchair, with family, ld1 18:05 Condition: stable 18:05 Discharge instructions given to patient, family, Instructed on discharge instructions, follow up and referral plans. Demonstrated understanding of instructions, follow-up care, 18:05 Patient left the ED. ld1 Signatures: Dispatcher [employer] EDJojo Underwood RN RN iw Nieto, Roman, MD MD rn Lewis, Lynsay, RN RN 1 Renata Diallo RN RN ld1
[2023-09-26 23:08] VITALS: TEMP 98.1; O2SAT 99
[2023-09-26 23:24] VITALS: BP 112/79
== END 2023-09-26 18:05 | disposition home or self-care (01) ==
LOC: ER 15:31
DX: S93.692A Other sprain of left foot, initial encounter (principal)
CPT/HCPCS: 36415; 72040; 80048; 85025; 99284

== ENCOUNTER 2023-10-21 21:40 | Emergency (ER) | payer OTHER ==
--- OUTSIDE RECORDS SUMMARY | 2023-10-21 21:47 | XMS REPORT | Clinical Summary ---
Author Name Unknown Organization [facility] Address [address] [place] [address] Care Team Providers Care Tradeshow Worker Name Role Phone Luisana Lucio MD Unavailable [phone] Roseann Jensen MD Unavailable [phone] Sindi Casiano MD Primary Care Provider [phone] Ajith Fink MD Unavailable Annette Kang MD Unavailable [phone] Frannie Emery MD Unavailable [phone] Rajinder English APRN Unavailable Allergies Active Allergy Reactions Criticality Noted Date Comments Zolpidem Other (See Comments) 04/17/2022 Hallucinations Medications Medication Sig Dispensed Refills Start Date End Date Status memantine (NAMENDA) 10 mg tabletIndications: Secondary malignant neoplasm of brain Take 1 tablet (10 mg) by mouth twice daily. 180 tablet 1 11/30/19 23 Active venlafaxine (EFFEXOR-XR) 150 mg 24 hr capsuleIndications :Secondary malignant neoplasm of brain,Non-small cell carcinoma of lung, TNM stage 4,Clostridium difficile diarrhea,Non-small cell carcinoma of lung, TNM stage 4 <Unspecified side>,Malignant neoplasm of unspecified part of unspecified bronchus or lung,Clostridium difficile colitis,Visual hallucination,Anem ia of chronic disease,Seizure, not otherwise specified,Auditory hallucination,Subd ural hematoma <Subsequent>,Malig nant neoplasm related fatigue,Lesion of brain,Chronic diarrhea,Generaliz ed muscle weakness,Other low back pain,Lymphocytic colitis,Malignant neoplasm of thyroid gland,Hypokalemia Take 1 capsule (150 mg) by mouth daily. 30 capsule 07/29/19 24 Active levETIRAcetam (KEPPRA) 1000 mg tabletIndications: Non-small cell carcinoma of lung, TNM stage 4,Secondary malignant neoplasm of brain,Clostridium difficile diarrhea,Non-small cell carcinoma of lung, TNM stage 4 <Unspecified side>,Malignant neoplasm of unspecified part of unspecified bronchus or lung,Clostridium difficile colitis,Visual hallucination,Anem ia of chronic disease,Seizure, not otherwise specified,Auditory hallucination,Subd ural hematoma <Subsequent>,Malig nant neoplasm related fatigue,Lesion of brain,Chronic diarrhea,Generaliz ed muscle weakness,Other low back pain,Lymphocytic colitis,Malignant neoplasm of thyroid gland,Hypokalemia Take 1 tablet (1,000 mg) by mouth twice daily for 90 days. 60 tablet 2 08/11/19 24 024 Active ondansetron (ZOFRAN) 8 mg tabletIndications: Non-small cell carcinoma of lung, TNM stage 4 <Unspecified side> Take 1 tablet (8 mg) by mouth every 8 (eight) hours as needed for nausea or vomiting. 30 tablet 08/11/19 24 Active nystatin (MYCOSTATIN) 100,000 units/g creamIndications:R josé miguel of groin Apply topically to affected area(s) twice daily. 30 g 08/11/19 24 Active pantoprazole (PROTONIX) 40 mg EC tabletIndications: Nausea with vomiting Take 1 tablet (40 mg) by mouth every morning before breakfast for 90 days. 30 tablet 2 08/12/19 24 024 Active topical paste menthol-white petrolatum-zinc oxide (REMEDY CALAZIME) 0.44-20.6 % psteIndications:Ra sh of groin Apply 1 application topically to affected area(s) as needed (Groin rash). 113 g 1 08/11/19 24 Active mesalamine (LIALDA) 1.[address] tablet Take 2 tablets (2,400 mg) by mouth daily with breakfast. Active rosuvastatin (CRESTOR) 10 mg tablet Take 1 tablet (10 mg) by mouth at bedtime. Active propranolol (INDERAL) 10 mg tablet Take 1 tablet (10 mg) by mouth twice daily. Active dexAMETHasone (DECADRON) 4 mg tabletIndications: Other encephalopathy Take 1 tablet (4 mg) by mouth every 8 (eight) hours for 3 days, THEN 1 tablet (4 mg) twice daily for 5 days, THEN 1 tablet (4 mg) daily for 5 days. 24 tablet 10/08/19 24 024 Active gabapentin (NEURONTIN) 300 mg capsuleIndications :Other low back pain Take 1 capsule (300 mg) by mouth at bedtime. 30 capsule 10/08/19 24 Active venlafaxine (EFFEXOR-XR) 150 mg 24 hr capsule TAKE 1 CAPSULE (150 MG) BY MOUTH DAILY WITH FOOD 01/20/20 20 024 Discontinued(St op Taking at Discharge) memantine (Namenda) 10 mg tabletIndications: Secondary malignant neoplasm of brain TAKE ONE TABLET BY MOUTH DAILY FOR 7 DAYS, THEN TAKE 1 TABLET BY MOUTH TWO TIMES A DAY FOR 6 MONTHS. 180 tablet 1 04/08/19 21 023 Discontinued ceritinib (Zykadia) 150 mg tabletIndications: Malignant neoplasm of unspecified part of unspecified bronchus or lung Take 2 tablets (300 mg) by mouth daily. Take with food. 60 tablet 5 07/28/19 22 024 Discontinued(St op Taking at Discharge) memantine (NAMENDA) 10 mg tabletIndications: Secondary malignant neoplasm of brain Take 1 tablet (10 mg) by mouth twice daily. 180 tablet 1 08/25/19 22 023 Discontinued propranolol (INDERAL) 10 mg tablet 11/09/19 22 024 Discontinued(Re order) ceritinib (ZYKADIA) 150 mg tabletIndications: Malignant neoplasm of unspecified part of unspecified bronchus or lung Take 3 tablets (450 mg) by mouth daily. 84 tablet 5 02/09/20 22 024 Discontinued(St op Taking at Discharge) diphenoxylate-atro pine (LomotiL) 2.5 mg-0.025 mg per tabletIndications: Malignant neoplasm of unspecified part of unspecified bronchus or lung,Diarrhea Take 1-2 tablets by mouth every 6 (six) hours as needed for diarrhea. Not to exceed 8 tablets per day 60 tablet 3 06/06/19 23 024 Discontinued(Re order) acetaminophen-code ine (Tylenol-Codeine #3) 300 mg-30 mg tabletIndications: Non-small cell carcinoma of lung, TNM stage 4 <Unspecified side> Take 1 tablet by mouth 3 (three) times a day as needed for moderate pain. 30 tablet 06/22/19 23 024 Discontinued(St op Taking at Discharge) levETIRAcetam (Keppra) 1000 mg tabletIndications: Other seizure Take 1 tablet (1,000 mg) by mouth twice daily. 60 tablet 3 06/30/19 23 024 Discontinued(St op Taking at Discharge) potassium chloride (Klor-Con M20) 20 mEq tabletIndications: Hypokalemia Take 2 tablets (40 mEq) by mouth [...] mouth 3 (three) times a day. 024 Discontinued gabapentin (NEURONTIN) 300 mg capsule Take 1 capsule (300 mg) by mouth 3 (three) times a day. 024 Discontinued(St op Taking at Discharge) potassium chloride (Klor-Con M20) 20 mEq tabletIndications: Hypokalemia Take 2 tablets (40 mEq) by mouth daily for 90 days. 180 tablet 03/26/19 24 024 Discontinued lorlatinib (Lorbrena) 100 mg tabletIndications: Malignant neoplasm of unspecified part of unspecified bronchus or lung Take 1 tablet by mouth daily 30 tablet 3 04/18/19 24 024 Discontinued(St op Taking at Discharge) ondansetron (ZOFRAN) 8 mg tabletIndications: Non-small cell carcinoma of lung, TNM stage 4 <Unspecified side> Take 1 tablet (8 mg) by mouth every 8 (eight) hours as needed for nausea or vomiting. 30 tablet 05/16/19 24 024 Discontinued(Re order) diphenoxylate-atro pine (LomotiL) 2.5 mg-0.025 mg per tabletIndications: Malignant neoplasm of unspecified part of unspecified bronchus or lung,Diarrhea Take 1-2 tablets by mouth every 6 (six) hours as needed for diarrhea. Not to exceed 8 tablets per day 60 tablet 3 05/17/19 24 024 Discontinued(St op Taking at Discharge) rosuvastatin (Crestor) 10 mg tabletIndications: Hyperlipidemia, not otherwise specified,Non-smal l cell carcinoma of lung, TNM stage 4 <Unspecified side> Take 1 tablet (10 mg) by mouth at bedtime for 30 days. 30 tablet 06/22/19 24 potassium chloride (Klor-Con M20) 20 mEq tabletIndications: Hypokalemia Take 2 tablets (40 mEq) by mouth daily for 90 days. 180 tablet 06/22/19 24 Discontinued(St op Taking at Discharge) ARIPiprazole (ABILIFY) 2 mg tabletIndications: Auditory hallucination Take 0.5 tablets (1 mg) by mouth daily for 30 days. 15 tablet 06/30/19 24 Discontinued(St op Taking at Discharge) miscellaneous medical supply miscIndications:Au ditory hallucination Physical and occupational therapy evaluation and treat. 1 each 06/29/19 24 Discontinued(St op Taking at Discharge) levETIRAcetam (KEPPRA) 500 mg tabletIndications: Auditory hallucination Take 1 tablet (500 mg) by mouth twice daily. 120 tablet 07/01/19 24 Discontinued(St op Taking at Discharge) loperamide (IMODIUM) 2 mg capsuleIndications :Chronic diarrhea Take 1 capsule (2 mg) by mouth 3 (three) times a day before meals. Hold if no BM 60 capsule 07/01/19 24 024 Discontinued(St op Taking at Discharge) mesalamine (LIALDA) 1.[address] tabletIndications: Weakness,Falls,Juni n in lower limb,Secondary malignant neoplasm of brain,Non-small cell carcinoma of lung, TNM stage 4,Acute urinary tract infection,Metastat ic malignant neoplasm to brain,Anemia of chronic disease,Auditory hallucination,Lymp hocytic colitis,Hypophosph atemia,Renal insufficiency,Gene ralized muscle weakness,Poor balance,Rhabdomyol ysis,Abnormal gait due to muscle weakness,Abnormal liver function,Creatine kinase level above reference range,Chronic diarrhea,Nausea with vomiting,Lesion of brain,Malignant neoplasm related fatigue,Other psychological or physical stress, not elsewhere classified,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 disease,Disorder of fluid AND/OR electrolyte,Hypoka lemia,Aphasia,Cere bral edema,Malignant neoplasm of thyroid gland,Choking Take 2 tablets (2.4 g) by mouth daily with breakfast. 30 tablet 07/07/19 24 024 Discontinued(Re order) vancomycin (FIRVANQ) 50 mg/mL oral solutionIndication s:Weakness,Falls,P ain in lower limb,Secondary malignant neoplasm of brain,Non-small cell carcinoma of lung, TNM stage 4,Acute urinary tract infection,Metastat ic malignant neoplasm to brain,Anemia of chronic disease,Auditory hallucination,Lymp hocytic colitis,Hypophosph atemia,Renal insufficiency,Gene ralized muscle weakness,Poor balance,Rhabdomyol ysis,Abnormal gait due to muscle weakness,Abnormal liver function,Creatine kinase level above reference range,Chronic diarrhea,Nausea with vomiting,Lesion of brain,Malignant neoplasm related fatigue,Other psychological or physical stress, not elsewhere classified,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 disease,Disorder of fluid AND/OR electrolyte,Hypoka lemia,Aphasia,Cere bral edema,Malignant neoplasm of thyroid gland,Choking Take 10 [...] 024 Discontinued(Re order) propranolol (INDERAL) 10 mg tabletIndications: Weakness,Falls,Juni n in lower limb,Secondary malignant neoplasm of brain,Non-small cell carcinoma of lung, TNM stage 4,Acute urinary tract infection,Metastat ic malignant neoplasm to brain,Anemia of chronic disease,Auditory hallucination,Lymp hocytic colitis,Hypophosph atemia,Renal insufficiency,Gene ralized muscle weakness,Poor balance,Rhabdomyol ysis,Abnormal gait due to muscle weakness,Abnormal liver function,Creatine kinase level above reference range,Chronic diarrhea,Nausea with vomiting,Lesion of brain,Malignant neoplasm related fatigue,Other psychological or physical stress, not elsewhere classified,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 HOLD FOR SBP<120 0 07/07/19 24 024 Discontinued(St op Taking at Discharge) mesalamine (LIALDA) 1.[address] tabletIndications: Weakness,Falls,Juni n in lower limb,Secondary malignant neoplasm of brain,Non-small cell carcinoma of lung, TNM stage 4,Acute urinary tract infection,Metastat ic malignant neoplasm to brain,Anemia of chronic disease,Auditory hallucination,Lymp hocytic colitis,Hypophosph atemia,Renal insufficiency,Gene ralized muscle weakness,Poor balance,Rhabdomyol ysis,Abnormal gait due to muscle weakness,Abnormal liver function,Creatine kinase level above reference range,Chronic diarrhea,Nausea with vomiting,Lesion of brain,Malignant neoplasm related fatigue,Other psychological or physical stress, not elsewhere classified,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 disease,Disorder of fluid AND/OR electrolyte,Hypoka lemia,Aphasia,Cere bral edema,Malignant neoplasm of thyroid gland,Choking Take 2 tablets (2.4 g) by mouth daily with breakfast. 60 tablet 07/07/19 24 024 Discontinued vancomycin (FIRVANQ) 50 mg/mL oral solutionIndication s:Weakness,Falls,P ain in lower limb,Secondary malignant neoplasm of brain,Non-small cell carcinoma of lung, TNM stage 4,Acute urinary tract infection,Metastat ic malignant neoplasm to brain,Anemia of chronic disease,Auditory hallucination,Lymp hocytic colitis,Hypophosph atemia,Renal insufficiency,Gene ralized muscle weakness,Poor balance,Rhabdomyol ysis,Abnormal gait due to muscle weakness,Abnormal liver function,Creatine kinase level above reference range,Chronic diarrhea,Nausea with vomiting,Lesion of brain,Malignant neoplasm related fatigue,Other psychological or physical stress, not elsewhere classified,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 disease,Disorder of fluid AND/OR electrolyte,Hypoka lemia,Aphasia,Cere bral edema,Malignant neoplasm of thyroid gland,Choking Take 10 [...] 24 024 mesalamine (LIALDA) 1.[address] tabletIndications: Diarrhea,Lymphocyt ic colitis Take 2 tablets (2,400 mg) by mouth twice daily for 90 days. 360 tablet 07/20/19 24 024 Discontinued(St op Taking at Discharge) fidaxomicin (Dificid) 200 mg tabletIndications: Clostridium difficile diarrhea Take 1 tablet (200 mg) by mouth twice daily for 10 days. 20 tablet 07/26/19 24 024 Discontinued(St op Taking at Discharge) cholestyramine (QUESTRAN) 4 g packetIndications: Secondary malignant neoplasm of brain,Non-small cell carcinoma of lung, TNM stage 4,Clostridium difficile diarrhea,Non-small cell carcinoma of lung, TNM stage 4 <Unspecified side>,Malignant neoplasm of unspecified part of unspecified bronchus or lung,Clostridium difficile colitis,Visual hallucination,Anem ia of chronic disease,Seizure, not otherwise specified,Auditory hallucination,Subd ural hematoma <Subsequent>,Malig nant neoplasm related fatigue,Lesion of brain,Chronic diarrhea,Generaliz ed muscle weakness,Other low back pain,Lymphocytic colitis,Malignant neoplasm of thyroid gland,Hypokalemia Take 1 packet (4 g) by mouth twice daily for 30 days. Mix powder in 4 ounces of juice. 60 packet 07/29/19 24 024 levETIRAcetam (KEPPRA) 750 mg tabletIndications: Secondary malignant neoplasm of brain,Non-small cell carcinoma of lung, TNM stage 4,Clostridium difficile diarrhea,Non-small cell carcinoma of lung, TNM stage 4 <Unspecified side>,Malignant neoplasm of unspecified part of unspecified bronchus or lung,Clostridium difficile colitis,Visual hallucination,Anem ia of chronic disease,Seizure, not otherwise specified,Auditory hallucination,Subd ural hematoma <Subsequent>,Malig nant neoplasm related fatigue,Lesion of brain,Chronic diarrhea,Generaliz ed muscle weakness,Other low back pain,Lymphocytic colitis,Malignant neoplasm of thyroid gland,Hypokalemia Take 1 tablet (750 mg) by mouth twice daily for 30 days. 60 tablet 07/29/19 24 024 Discontinued(Re order) mesalamine (LIALDA) 1.[address] tabletIndications: Secondary malignant neoplasm of brain,Non-small cell carcinoma of lung, TNM stage 4,Clostridium difficile diarrhea,Non-small cell carcinoma of lung, TNM stage 4 <Unspecified side>,Malignant neoplasm of unspecified part of unspecified bronchus or lung,Clostridium difficile colitis,Visual hallucination,Anem ia of chronic disease,Seizure, not otherwise specified,Auditory hallucination,Subd ural hematoma <Subsequent>,Malig nant neoplasm related fatigue,Lesion of brain,Chronic diarrhea,Generaliz ed muscle weakness,Other low back pain,Lymphocytic colitis,Malignant neoplasm of thyroid gland,Hypokalemia Take 4 tablets (4.8 g) by mouth daily with breakfast for 30 days. 120 tablet 07/30/19 24 024 fidaxomicin (DIFICID) 200 mg tabletIndications: Secondary malignant neoplasm of brain,Non-small cell carcinoma of lung, TNM stage 4,Clostridium difficile diarrhea,Non-small cell carcinoma of lung, TNM stage 4 <Unspecified side>,Malignant neoplasm of unspecified part of unspecified bronchus or lung,Clostridium difficile colitis,Visual hallucination,Anem ia of chronic disease,Seizure, not otherwise specified,Auditory hallucination,Subd ural hematoma <Subsequent>,Malig nant neoplasm related fatigue,Lesion of brain,Chronic diarrhea,Generaliz ed muscle weakness,Other low back pain,Lymphocytic colitis,Malignant neoplasm of thyroid gland,Hypokalemia Take 1 tablet (200 mg) by mouth every 12 (twelve) hours for 13 doses. 13 tablet 07/29/19 24 024 Discontinued(St op Taking at Discharge) ondansetron (ZOFRAN) 8 mg tabletIndications: Non-small cell carcinoma of lung, TNM stage 4 <Unspecified side> Take 1 tablet (8 mg) by mouth every 8 (eight) hours as needed for nausea or vomiting. 30 tablet 07/29/19 24 024 Discontinued(Re order) gabapentin (NEURONTIN) 300 mg capsule Take 1 capsule (300 mg) by mouth at bedtime. 024 Discontinued(Re order) levoFLOXacin (LEVAQUIN) 500 mg tabletIndications: Urinary tract infection, not otherwise specified Take 1 tablet (500 mg) by mouth daily for 3 days. 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> 10/02/2023 Other encephalopathy 10/02/2023 Acute encephalopathy 08/07/2023 Sepsis 07/31/2023 Leukocytosis 07/31/2023 Hypotension 07/31/2023 Clostridium difficile colitis 07/26/2023 Confusion 07/25/2023 Visual hallucination 07/25/2023 Diarrhea 07/19/2023 Malignant neoplasm of unspecified part of bronch us or lung 07/19/2023 Seizure 06/30/2023 Anemia of chronic disease 06/30/2023 Auditory hallucination 06/27/2023 Subdural hematoma 05/14/2022 Overview: Added automatically from request for surgery [id number] Lymphocytic colitis 10/20/2021 Acute renal failure syndrome [...] Overview: Added automatically from request for surgery [id number] Chronic diarrhea 12/03/2020 Overview: Added automatically from request for surgery [id number] Lesion of brain 02/03/2020 Overview: Added automatically from request for surgery [id number] Hypokalemia 01/31/2020 Disorder of fluid AND/OR electrolyte 01/31/2020 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 disease 0 Cerebral edema 01/30/2020 Secondary malignant neoplasm of brain 01/30/2020 Aphasia 01/30/2020 Depressive disorder 01/30/2018 Non-small cell carcinoma of lung, TNM stage 4 Dysphagia 07/31/2016 Choking 07/31/2016 Thyroid cancer 07/31/2016 Overview: Mandatory CMS ICD-10 2020 UPDATE Other psychological or physi pito stress, not elsewhere classified Malignant neoplasm related fatigue Abnormal gait due to muscle weakness Rhabdomyolysis Encounters Date Type Department Care Team Description 10/16/2023 Telephone [facility] [address] [facility] [employer] [facility] [employer], [address]th [place] [address] Elizabeth Morelos MA 10/08/2023 Orders Only [facility] - Neurosurgery [facility] [employer], 7th [place] [address] Van Russo, SUSANA Secondary malignant neoplasm of brain (Primary Dx) 10/06/2023 Orders Only [facility] - Neuro Oncology 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 (Primary Dx) 10/05/2023 12:45 PM CDT Anesthesia Event [facility] [address] [facility] Main dg, 3rd [place] [address] Aramis Nicholas MD Shaik, Ghouse B, BRIDGE PAINTER 10/02/2023 Travel 10/01/2023 11:17 AM CDT - 10/08/2023 5:04 PM CDT Hospital Encounter MAIN [address] [place] [address] Zuri Farr MD Taylor, MD Maikel Bean Norman, MD Parhizgar, Alireza, MD Aphasia (Primary Dx); Other encephalopathy; Adenocarcinoma, NOS of lower lobe, 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>; Urinary tract infection, not otherwise specified; Other low back pain; Malignant neoplasm of unspecified part of unspecified bronchus or lung Discharge Disposition: Home with Home-Health or Physical Therapy 10/01/2023 Travel 09/10/2023 Orders Only Abdominal Imaging [address] [place] [id number] Padmini Morelos, SUSANA 09/10/2023 Orders Only [facility] [address] [place] [address], 1st [place] [address] Vicky Denise, BRIDGE PAINTER Secondary malignant neoplasm of brain (Primary Dx) 09/10/2023 Documentation [facility] [address] [place] [address], 1st [place] [address] Vicky Denise, BRIDGE PAINTER 09/05/2023 Orders Only Thor[facility] - Medical Oncology [address] [place] [address], 9th [place] [address] Dalia Weiner, BRIDGE PAINTER Non-small cell carcinoma of lung, TNM stage 4 <Unspecified side> (Primary Dx) 09/04/2023 11:00 AM CDT Telemedicine [facility] Neurosurgery [address] [place] [address] Main dg, 7th [place] [address] Frannie Emery MD Secondary malignant neoplasm of brain (Primary Dx) 09/03/2023 11:59 PM CDT Anesthesia Event [facility] [address] [place] [address], 3rd [place] [address] Lima Zavala MD 08/31/2023 4:49 PM CDT Anesthesia Event [facility] [address] [place] [address], 6th [place] [address] Francoise Michael, RN 08/31/2023 4:30 PM CDT POEM Appointments [facility] [address] [place] [address], [address]th [place] [address] Sindi Casiano MD 08/29/2023 [facility] - Medical Oncology [address] [place] [address], 9th [place] [address] Lorenza Taylor, RASHMI 08/24/2023 Case Management Case Management [address] [place] [address] Ashlyn Hernandez, RN 08/23/2023 [facility] [place] - Medical Oncology [address] [place] [address], 9th [place] [address] Dalia Weiner, BRIDGE PAINTER Non-small cell carcinoma of lung, TNM stage 4 <Unspecified side> (Primary Dx) 08/23/2023 Case Management Case Management [address] [place] [address] Ashlyn Hernandez, RN 08/08/2023 10:12 AM CDT Anesthesia Event [facility] [address] [place] [address], 3rd [place] [address] Nedra Oscar MD Thomas, Cini, BRIDGE PAINTER,FUNERAL HOME ATTENDANT 07/31/2023 Travel 07/30/2023 8:38 PM CDT - 08/11/2023 2:13 PM CDT Hospital Encounter MAIN [address] [place] [address] Shadia Clement MD Gao, Lucy C, MD Franco Vega, Maria, MD Leung, Cerena, MD Tanwir, Hira, MD Dickson, MD Te Weakness (Primary Dx); Hypotension; Diarrhea; Non-small cell [...] [facility] - Gastroenterology, Hepatology & Nutrition [address] [place] [address], 7th Floor [address] [place] [id number] Mounika Caballero, BRIDGE PAINTER 07/30/2023 Case Management Case Management [address] [place], [place] [id number] Johnie Velasco RN 07/27/2023 Orders Only Clinical Pharmacy [address] [place] [address], 2nd Floor [address] [place] [phone] Jonathan Mohr, [facility] 07/26/2023 9:54 AM CDT Anesthesia Event [facility] [address] [place] [address], 3rd [place] [address] Elisa Reyes CRNA 07/26/2023 Orders Only [facility] - Neuro Oncology [address] [place] [address], 7th [place] [address] Suzi Dias DO Seizure, not otherwise specified (Primary Dx) 07/25/2023 Travel 07/24/2023 8:53 PM CDT - 07/29/2023 5:11 PM CDT Hospital Encounter MAIN [address] [place], [place] [phone] Shadia Clement MD Gao, Lucy C, MD [...] 07/24/2023 Travel 07/24/2023 Case Management Case Management [address] [place], [place] [phone] Johnie Velasco RN 07/23/2023 10:45 AM CDT Ancillary Procedure CT Imaging [address] [place] [address] Dalia Weiner APRN Non-small cell carcinoma of lung, TNM stage 4 <Unspecified side> 07/23/2023 9:15 AM CDT - 07/23/2023 11:59 PM CDT Hospital Encounter [facility] [address] [place] [id number] Dalia Weiner APRN Non-small cell carcinoma of lung, TNM stage 4 <Unspecified side> Discharge Disposition: Home 07/20/2023 Orders Only [facility] - Gastroenterology, Hepatology & Nutrition [address] [place] [id number] Mounika Caballero APRN Diarrhea (Primary Dx); Lymphocytic colitis 07/20/2023 Travel 07/19/2023 8:00 AM CDT Telemedicine [facility] - Gastroenterology, Hepatology & Nutrition [address] [place] [id number] Muonika Caballero APRN Lymphocytic colitis (Primary Dx); Diarrhea 07/19/2023 [facility] Gastroenterology, Hepatology & Nutrition [address] [place] [address], 7th [place] [address] Mounika Caballero APRN Lymphocytic colitis (Primary Dx); Diarrhea; Malignant neoplasm of unspecified part of unspecified bronchus or lung 07/18/2023 Case Management Case Management [address] [place] [address] Johnie Velasco, RN 07/17/2023 Telephone [facility] - Colon and Rectal Surgery [address] [place] [address], [address] [place] [address] [place] [address] Chika Pastrana MA 07/17/2023 Orders Only [facility] - Medical Oncology [address] [place] [address], 9th [facility] [place] [address] Dalia Weiner APRN Non-small cell carcinoma of lung, TNM stage 4 <Unspecified side> (Primary Dx) 07/16/2023 Case Management Case Management [address] [place] [address] Johnie Velasco, RN 07/12/2023 Telephone Case Management [address] [place] [address] Johnie Velasco, RN 07/12/2023 Telephone Case Management [address] [place] [address] Johnie Velasco, RN 07/11/2023 Orders Only [facility] - Gastroenterology, Hepatology & Nutrition [address] [place] [address], [address] [place] [phone] Mounika Caballero APRN Lymphocytic colitis (Primary Dx) 07/09/2023 Case Management Case Management [address] [place] [address] Johnie Velasco, RN 07/05/2023 Orders Only Neuroradiology [address] [place] [address] Gilles Beatty MD 07/03/2023 3:02 PM CDT - 07/07/2023 6:40 PM CDT Hospital Encounter MAIN [address] [place] [address] Abhijit Farr MD Musunuru, Tejo, MD Franco [...] 07/03/2023 Telephone [facility] - Medical Oncology [address] [place] [address], 9th [place] [address] Ildefonso Donaldson MA 07/03/2023 Telephone [facility] - Neurosurgery [address] [place] [address], 7th [place] [address] Yumiko Briones RN 06/30/2023 Orders Only [facility] - Neuro Oncology [address] [place], [place] [address], 7th [place] [address] Shae Cosme MD Secondary malignant neoplasm of brain (Primary Dx) 06/29/2023 2:08 PM CDT Anesthesia Event [facility] [address] [place], [place] [address], 3rd [place] [address] Asim Ontiveros, Viry Steele, BRIDGE PAINTER 06/27/2023 5:31 PM CDT - 07/01/2023 6:33 PM CDT Hospital Encounter MAIN 22SE [address] [place] [address] Kalpana William MD Wechsler, Adriana, MD Yeung, Sai-Ching, MD Musunuru, Tejo, MD Etchegaray-Langly, Mikel, MD Auditory hallucination (Primary Dx); Secondary malignant neoplasm of brain; Non-small cell carcinoma of lung, TNM stage 4; Poor balance; Depressive disorder; Chronic diarrhea; Subdural hematoma <Subsequent>; Iron deficiency anemia, not otherwise specified Discharge Disposition: Home 06/27/2023 Travel 06/22/2023 Orders Only [facility] [place] - Medical Oncology [facility] Main dg, 9th [place] [address] Dalia Weiner APRN Non-small cell carcinoma of lung, TNM stage 4 <Unspecified side> (Primary Dx); Hyperlipidemia, not otherwise specified; Hypokalemia 06/18/2023 Orders Only [facility] [place] - Medical Oncology [address] [place] [address] Main dg, 9th [place] [address] Dalia Weiner APRN Malignant neoplasm of unspecified part of unspecified bronchus or lung (Primary Dx) 06/12/2023 [facility] [place] - Medical Oncology [address] [place] [address] Main dg, 9th [place] [address] Alex Bo MA 06/08/2023 12:30 PM CDT Telemedicine [facility] - Neurosurgery [address] [place] [address] Main dg, 7th [place] [address] Mark Batista MD Ferguson, Sherise D., MD Secondary malignant neoplasm of brain 06/05/2023 Orders Only Neuroradiology [address] [place] [address] Joslyn Sy MD 06/05/2023 Orders Only [facility] [address] [place] [address] Main dg, 1st [place] [address] Saira Carrasquillo APRN Secondary malignant neoplasm of brain (Primary Dx) 06/04/2023 1:44 PM CDT - 06/04/2023 11:59 PM CDT Hospital Encounter [facility] Treatment [facility] 1515 [facility] Main Bldg, 1st [place] [address] Bree Calderón MD Secondary malignant neoplasm of brain (Primary Dx) Discharge Disposition: Home 06/04/2023 11:26 AM CDT Anesthesia Event [facility] 1515 [facility] Main Bldg, 3rd [place] [address] Darius Zelaya MD Kwok, Cindy, OSMEL 06/04/2023 10:15 AM CDT - 06/04/2023 1:43 PM CDT Hospital Encounter Diagnostic Imaging Center [facility] Main Bldg, 3rd [place] [address] Saira Carrasquillo APRN Potylchansky, Yury, MD Kwok, Cindy, OSMEL Secondary malignant neoplasm of brain Discharge Disposition: Home 06/04/2023 Travel 06/01/2023 11:59 PM CDT Anesthesia Event Perioperative Evaluation and Management Center [facility] Main [facility] [employer], 6th [place] [address] Rahel Smallwood APRN 06/01/2023 4:30 PM CDT POEM Appointments Perioperative Evaluation and Management Center [facility] Main [facility] [employer], 6th [place] [address] Sindi Casiano MD 05/17/2023 Orders Only [facility] - Medical Oncology [facility] Main Bldg, 9th [place] [address] Dalia Weiner APRN Malignant neoplasm of unspecified part of unspecified bronchus or lung (Primary Dx) 05/17/2023 Orders Only [facility] - Medical Oncology [facility] Main dg, 9th [place] [address] Dalia Weiner APRN Malignant neoplasm of unspecified part of unspecified bronchus or lung; Diarrhea 05/16/2023 Refill [facility] - Medical Oncology 15[address] [facility] Main Bldg, 9th [place] [address] Dalia Weiner APRN Malignant neoplasm of unspecified part of unspecified bronchus or lung; Diarrhea 05/03/2023 Documentation Rad[facility] Treatment [facility] 1515 [facility] Main [place] [address] Bree Calderón MD 05/02/2023 Orders Only [facility] Main [facility], 9th [place] [address] Dalia Weiner, SUSANA Non-small cell carcinoma of lung, TNM stage 4 <Unspecified side> (Primary Dx) 04/18/2023 2:40 PM MILLED RICE BROKER - 04/18/2023 11:59 PM MILLED RICE BROKER Hospital Encounter Diagnostic Laboratory Center 15[address] [facility] Main dg, [place] [address] Sindi Casiano MD Malignant neoplasm of unspecified part of unspecified bronchus or lung Discharge Disposition: Home 04/18/2023 1:00 PM MILLED RICE BROKER Follow-Up [facility] - Medical Oncology [address] [facility] Main Bldg, 9th [place] [address] Sindi Casiano MD Malignant neoplasm of unspecified part of unspecified bronchus or lung (Primary Dx); Non-small cell carcinoma of lung, TNM stage 4 <Unspecified side> 04/18/2023 Documentation [facility] Main Bldg, 1st Floor G1.3418 [place] [address] Zohreh Hamilton, PT 04/18/2023 Orders Only [facility] Medical Oncology [facility] [facility] Main Bldg, 9th [place] [address] Rosa Almendarez, Greer Malignant neoplasm of unspecified part of unspecified bronchus or lung (Primary Dx) 04/18/2023 Travel 04/16/2023 2:05 PM MILLED RICE BROKER Ancillary Procedure CT Imaging 1220 [facility], 7th [place] [address] Dalia Weiner, BRIDGE PAINTER Non-small cell carcinoma of lung, TNM stage 4 <Unspecified side> 04/12/2023 9:30 AM MILLED RICE BROKER - 04/12/2023 11:59 PM MILLED RICE BROKER Hospital Encounter [facility] [place] [address] Saira Carrasquillo, BRIDGE PAINTER Secondary malignant neoplasm of brain Discharge Disposition: Home 04/12/2023 Orders Only [facility] 7th [place] [address] Rajinder English, BRIDGE PAINTER Lesion of brain (Primary Dx) 04/11/2023 8:13 AM MILLED RICE BROKER Anesthesia Event [facility] [address] [place] [address] Radiation Oncology [place] Take Elevator G to the Basement Waiting Area E [place] [phone] Kenton Reich MD 04/11/2023 7:10 AM MILLED RICE BROKER - 04/11/2023 11:40 AM MILLED RICE BROKER Surgery [facility] [address] [place] [address] Radiation Oncology [place] Take Elevator G to the Basement Waiting Area E [place] [phone] Bree Calderón MD 4 STAR - STEREOTACTIC RADIATION [place] MANAGEMENT,CRANIAL LESION 04/11/2023 7:03 AM MILLED RICE BROKER - 04/11/2023 5:39 PM MILLED RICE BROKER Hospital Encounter [facility] [address] [place] [address] Radiation Oncology [place] Take Elevator G to the Basement Waiting Area E [place] [phone] Mark Batista MD Discharge Disposition: Home 04/11/2023 Documentation [facility] [address] [place] [address] near Elevator G [place] [phone] Bree Calderón MD 04/11/2023 Documentation [facility] [address] [place] [address] near Elevator G [place] [phone] Bree Calderón MD 04/11/2023 Documentation [facility] [address] Main [place]ld[place] [address] Bree Calderón MD 04/11/2023 Travel 04/10/2023 11:00 AM MILLED RICE BROKER - 04/10/2023 11:59 PM MILLED RICE BROKER Hospital Encounter [facility] [address] Main Bldg, 1st [place] [address] Saira Carrasquillo APRN Foster, Avian P, RN Secondary malignant neoplasm of brain Discharge Disposition: Home 04/10/2023 Prep for Surgery [facility] [address] Main Bldg, 7th [place] [address] Rajinder English APRN 04/10/2023 Documentation [facility] - Neurosurgery [address] Main Bldg, 7th [place] [address] Marcella Hopper APRN 04/10/2023 Prep for Surgery [facility] [address] Main Bldg, 7th [place] [address] Marcella Hopper, SUSANA Secondary malignant neoplasm of brain (Primary Dx) 04/09/2023 10:37 AM MILLED RICE BROKER - 04/09/2023 11:59 PM MILLED RICE BROKER Hospital Encounter Diagnostic Laboratory Center [address] Main Bldg, [place] [address] Saira Carrasquillo APRN Secondary malignant neoplasm of brain Discharge Disposition: Home 04/09/2023 7:28 AM MILLED RICE BROKER Anesthesia Event [facility] [address] Main Bldg, 3rd [place] [address] Darius Zelaya MD 04/09/2023 6:08 AM MILLED RICE BROKER - 04/09/2023 10:36 AM MILLED RICE BROKER Hospital Encounter Diagnostic [facility] Center [address] Main Bldg, 3rd [place] [address] Saira Carrasquillo APRN Mirza, Alisa, CRNA Potylchansky, Yury, MD Secondary malignant neoplasm of brain Discharge Disposition: Home 04/06/2023 11:59 PM MILLED RICE BROKER Anesthesia Event Perioperative Evaluation and Management Center [address] Main Bldg, 6th [place] [address] Yamilet Gibson RN 04/06/2023 11:30 AM MILLED RICE BROKER POEM Appointments Perioperative Evaluation and Management Center [address] Main Bldg, 6th [place] [address] Sindi Casiano MD 03/26/2023 Orders Only [facility] - Medical Oncology [address] Main Bldg, 9th [place] [address] Dalia Weiner APRN Hypokalemia (Primary Dx) 03/02/2023 Documentation Rad[facility] Treatment Center [address] Main Bldg, 1st [place] [address] Curtis Welsh APRN 02/27/2023 Orders Only Neuroradiology [facility] [place] [address] Tere Hawkins MD 02/27/2023 Orders Only Rad[facility] Treatment [facility] [address] Main Bldg, 1st [place] [address] Saira Carrasquillo APRN Secondary malignant neoplasm of brain (Primary Dx) 02/26/2023 2:49 PM MILLED RICE BROKER - 02/26/2023 11:59 PM MILLED RICE BROKER Hospital Encounter [facility] [address] Main Bldg, 1st [place] [address] Bree Calderón MD Secondary malignant neoplasm of brain Discharge Disposition: Home 02/26/2023 Travel 02/14/2023 9:23 AM MILLED RICE BROKER Anesthesia Event [facility] [address] Main Bldg, 3rd [place] [address] Bambi Hernandez MD 02/14/2023 8:00 AM MILLED RICE BROKER - 02/14/2023 11:59 PM MILLED RICE BROKER Hospital Encounter [facility] [address] Main Bldg, 3rd Floor Elevator F [place] [phone] Jailene Crespo CRNA Oliver, Jodi Ann, MD Secondary malignant neoplasm of brain Discharge Disposition: Home 02/07/2023 11:59 PM MILLED RICE BROKER Anesthesia Event Perioperative Evaluation and Management Center [address] [facility] Main Bldg, 6th [place] [address] Miguel Angel Riggins RN 02/07/2023 12:00 PM MILLED RICE BROKER POEM Appointments Perioperative Evaluation and Management Center 1515 [facility] Main Bldg, 6th [place] [address] Sindi Casiano MD 01/29/2023 Orders Only [facility], 9th [place] [address] Dalia Weiner, SUSANA Non-small cell carcinoma of lung, TNM stage 4 <Unspecified side> (Primary Dx) 01/17/2023 7:50 AM CDT - 01/17/2023 11:59 PM CDT Hospital Encounter Main CT IMAGING 1515 [facility] Main Bldg, 3rd [place] [address] Dalia Weiner APRN Non-small cell carcinoma of lung, TNM stage 4 <Unspecified side> Discharge Disposition: Home 01/17/2023 7:24 AM CDT - 01/17/2023 7:49 AM CDT Hospital Encounter Diagnostic Laboratory Center 15[address] [facility] Main [facility] [employer] [facility] [employer], [place] [address] Dalia Weiner APRN Non-small cell carcinoma of lung, TNM stage 4 <Unspecified side> Discharge Disposition: Home 01/17/2023 Orders Only [facility] - Medical Oncology 15[address] [facility] Main Bldg, 9th Floor Elevator B [place] [phone] Rosa Almendarez, PharmD 01/09/2023 Orders Only Neuroradiology [facility] [place] [phone] Sharlene Wayne MD 01/09/2023 Orders Only Radiation Treatment Center [facility] Main Bldg, 1st [place] [address] Vicky Denise, BRIDGE PAINTER Secondary malignant neoplasm of brain (Primary Dx) 01/08/2023 4:00 PM CDT - 01/08/2023 11:59 PM CDT Hospital Encounter Radiation Treatment Center 15[address] [facility] Main dg, 1st [place] [address] Bree Calderón MD Secondary malignant neoplasm of brain Discharge Disposition: Home 01/05/2023 9:44 AM CDT Anesthesia Event Diagnostic Imaging Center 15[address] [facility] Main Bldg, 3rd Floor Elevator F [place] [phone] Moni Malloy MD Kwok, Cindy, OSMEL 01/05/2023 8:00 AM CDT - 01/05/2023 11:59 PM CDT Hospital Encounter Diagnostic Imaging Center [facility] Main [facility] [employer], 3rd Floor Elevator F [place] [phone] Lois Willingham MD Nguyen, Anh-Thuy, MD Casarez, Vianey, OSMEL Secondary malignant neoplasm of brain Discharge Disposition: Home 01/04/2023 4:00 PM CDT POEM Appointments Perioperative Evaluation and Management Center [facility] Main [facility] [employer] [facility] [employer], 6th Floor Elevator A [place] [phone] Sindi Casiano MD 12/11/2022 [facility] - Medical Oncology [facility] Main [facility] [employer] [facility] [employer], 9th [place] [address] Carmelita Cisse, RASHMI 11/29/2022 11:59 PM CDT Anesthesia Event Perioperative Evaluation and Management Center 15[address] [facility] Main [facility], 6th [place] [address] Navarro Briseno II, APRN 11/29/2022 10:21 AM CDT - 11/29/2022 11:59 PM CDT Hospital Encounter Diagnostic Laboratory Center [facility] [place] [address] Dalia Weiner, BRIDGE PAINTER Non-small cell carcinoma of lung, TNM stage 4 <Unspecified side> Discharge Disposition: Home 11/29/2022 9:32 AM CDT - 11/29/2022 10:20 AM CDT Hospital Encounter Interventional Radiology 1220 [facility], 4th [place] [address] Sindi Casiano MD Chen, Stephen, MD Subdural hematoma <Subsequent> (Primary Dx); Follow-up 7-11 months Discharge Disposition: Home 11/29/2022 6:00 AM CDT Ancillary Procedure CT Imaging 1220 [facility], 7th [place] [address] Randa Méndez PA 11/29/2022 Orders Only Radiation Treatment Center [facility], 1st [place] [address] Lois Willingham MD 11/29/2022 Travel 11/27/2022 Orders Only [facility] - Medical Oncology 15[address] [facility] Main dg, 9th [place] [address] Dalia Weiner APRN Non-small cell carcinoma of lung, TNM stage 4 <Unspecified side> (Primary Dx) 11/16/2022 Orders Only [facility] - Medical Oncology 15[address] [facility] Main [facility], 9th [place] [address] Dalia Weiner APRN Non-small cell carcinoma of lung, TNM stage 4 <Unspecified side> (Primary Dx) 11/02/2022 9:30 AM CDT Ancillary Procedure CT Imaging 1220 [facility], 7th [place] [address] Dalia Weiner APRN Non-small cell carcinoma of lung, TNM stage 4 <Unspecified side> 10/31/2022 Orders Only [facility] - Medical Oncology [address] [facility] Main dg, 9th [place] [address] Dalia Weiner APRN Non-small cell carcinoma of lung, TNM stage 4 <Unspecified side> (Primary Dx) 10/30/2022 10:45 AM CDT - 10/30/2022 11:59 PM CDT Hospital Encounter Diagnostic Laboratory Center 15[address] [facility] Main Bldg, [place] [address] Husam Dalia GabrielSUSANA Non-small cell carcinoma of lung, TNM stage 4 <Unspecified side> Discharge Disposition: Home 10/30/2022 Telephone [facility] - Medical Oncology [address] [facility] Main dg, 9th [place] [address] Kassi Foster MA after 10/21/2022 Immunizations Name Administration Dates Next Due Pfizer SARS-CoV-2 Vaccination (Purple Cap) 11/06 Surgical History Surgery Date Site/Laterality Comments THYROID SURGERY 07/14/2016 was planned for partial thyroidectomy which was aborted d/t positive LN UTERINE FIBROID EMBOLIZATION GALLBLADDER SURGERY LAPAROSCOPIC GASTRIC BANDING TUBAL LIGATION WI EGD TRANSORAL BIOPSY SINGLE/MULTIPLE 05/31/2019 Esophagus/N/A Procedure: UPPER GASTROINTESTINAL ENDOSCOPY OF ESOPHAGUS, STOMACH, AND DUODENUM WITH BIOPSY; Surgeon: Haile Whittaker MD; Location: MAIN ENDOSCOPY; Service: GASTROENTEROLOGY WI CRANIEC TREPHINE BONE FLP BRAIN TUMOR SUPRTENTOR 02/10/2020 Head/Left Procedure: LEFT TEMPORAL CRANIOTOMY FOR EXCISION OF BRAIN TUMOR; Surgeon: Frannie Emery MD; Location: MAIN OR; Service: NEUROSURGERY Medical devices from this surgery are in the Medical Devices section. WI COLONOSCOPY FLX DX W/COLLJ SPEC WHEN PFRMD 09/28/2021 N/A Procedure: DIAGNOSTIC FLEXIBLE COLONOSCOPY PROXIMAL TO SPLENIC FLEXURE; Surgeon: Annette Kang MD; Location: MAIN ENDOSCOPY; Service: GASTROENTEROLOGY; The EGD and colonoscopy showed minimal inflammation in the stomach/duodenum, but lymphocytic colitis on biopsy, which could certainly explain her symptoms of diarrhea. WI TCAT PERMANENT OCCLUSION/EMBOLIZATION PRQ EMBOSSING PRESS OPERATOR APPRENTICE 06/09/2022 Bilateral Procedure: IR EMBOLIZATION EMBOSSING PRESS OPERATOR APPRENTICE (INTRACRANIAL); Surgeon: Haim Mckeon MD; Location: MAIN OR; Service: INTERVENTIONAL RADIOLOGY WI STERETCTC RADIATION TX MANAGEMENT CRANIAL LESION 04/11/2023 [...] Sign Reading Time Taken Comments Blood Pressure 97/66 10/08/2023 11:01 AM CDT Pulse 68 10/08/2023 11:01 AM CDT Temperature 36.4 C (97.5 F) 10/08/2023 11:01 AM C DT Respiratory Rate 18 10/08/2023 11:01 AM CDT Oxygen Saturation 100% 10/08/2023 11:01 AM CDT Inhaled Oxygen Concentration - - Weight 78.3 kg (172 lb 9.9 oz) 10/01/2023 11:16 PM CDT Height 157.5 cm (5' 2") 10/01/2023 11:16 PM CDT Body Mass Index 31.57 10/01/2023 11:16 PM CDT Plan of Treatment Upcoming Encounters Date Type Department Care Team (Late st Contact Info) Description 10/23/2023 10:00 AM CDT Follow-Up [facility] - Medical Oncology [address] [place] [address], 9th [place] [address] Sindi Casiano MD [address] [place] [phone] [email or web address] 10/25/2023 4:30 PM CDT POEM Appointments Perioperative Evaluation and Management Center [address] [place] [address] Main Bldg, 6th [place] [address] [place] [address] [place] [phone] [email or web address] 10/26/2023 6:15 AM CDT Appointment Diagnostic Imaging Center [address] [place] [address] Main [facility], 3rd [place] [address] Vicky Denise, BRIDGE PAINTER [address] [place] [phone] [email or web address] 10/29/2023 4:00 PM CDT Appointment Radiation Treatment Center [address] [place] [address], 1st [place] [address] Bree Calderón MD [address] [place] [phone] [email or web address] 11/06/2023 2:00 PM CDT Office Visit [facility] - Neuro Oncology [address] [place] [address], 7th [place] [address] Carl Gutierrez MD [address] [place] [phone] [email or web address] 01/01/2024 11:00 AM CDT Telemedicine [facility] - Neurosurgery [address] [place] [address], 7th [place] [address] Frannie Emery MD [address] [place] [phone] [email or web address] Health Maintenance Due Date Last Done Comments COVID-19 Vaccine (2 - Pfizer risk series) 11/27/2020 11/06/2020 Influenza Vaccine 11/18/2023 Medical Devices Implanted Type Area Multi Township Assessor Device Identifier Shelf Expiration Date Model / Serial / Lot Lap Band Implant Stomach [employer] [id number] / [id number] / Description:Lap band--[employer]--2010--Dr. Edward Reed--[id number] Allergan Lap-Band--Conditional 5 up to 3T per [email or web address] [email or web address] Hc Cover, Matrix Neuro Ulp [place], Ti, 17mm - [id number] Implanted:Qty: 2 on 02/10/2020 by Frannie Emery MD at [facility] Implant Left: Cranial SYNTHES [email or web address] 04.502.0 23 / / Plate, Matix, Neuro, Ulp Ti, Box, [id number] - [id number] Implanted:Qty: 1 on 02/10/2020 by Frannie Emery MD at [facility] Implant Left: Cranial SYNTHES [email or web address] 04.502.0 65 / / Screw Matrixneuro 4mm Self Drilling Pkg 1 - [id number] Implanted:Qty: 13 on 02/10/2020 by Frannie Emery MD at [facility] Metalware Left: Cranial SYNTHES [email or web address] 04.503.1 04.01 / / Florian Hole Crani 17mm Low Profile - [id number] Implanted:Qty: 1 on 02/10/2020 by Frannei Emery MD at [facility] Metalware Left: Cranial SYNTHES [email or web address] [id number] 23 / / Sealant Duraseal 5ml - [id number] Implanted:Qty: 1 on 02/10/2020 by Frannie Emery MD at [facility] Skin/Tissue Left: Cranial COVIDIEN 12/16/2020 / / [id number] Procedures Procedure Name Priority Date/Time Associated Diagnosis Comments .CBC Routine 10/08/2023 4:33 AM CDT PHOSPHORUS LEVEL Routine 10/08/2023 4:33 AM CDT MAGNESIUM LEVEL Routine 10/08/2023 4:33 AM CDT COMPREHENSIVE METABOLIC PANEL Routine 10/08/2023 4:33 AM CDT COMPLETE BLOOD COUNT W/ DIFFERENTIAL Routine 10/08/2023 4:33 AM CDT .CBC Routine 10/07/2023 6:17 AM CDT PHOSPHORUS LEVEL Routine 10/07/2023 6:17 AM CDT MAGNESIUM LEVEL Routine 10/07/2023 6:17 AM CDT COMPREHENSIVE METABOLIC PANEL Routine 10/07/2023 6:17 AM CDT COMPLETE BLOOD COUNT W/ DIFFERENTIAL Routine 10/07/2023 6:17 AM CDT .CBC Routine 10/06/2023 3:49 AM CDT PHOSPHORUS LEVEL Routine 10/06/2023 3:49 AM CDT MAGNESIUM LEVEL Routine 10/06/2023 3:49 AM CDT COMPREHENSIVE METABOLIC PANEL Routine 10/06/2023 3:49 AM CDT COMPLETE BLOOD COUNT W/ DIFFERENTIAL Routine 10/06/2023 3:49 AM CDT MRI BRAIN W WO CONTRAST Routine 10/05/19 12:40 PM CDT .CBC Routine 10/05/2023 4:18 AM CDT PHOSPHORUS LEVEL Routine 10/05/2023 4:18 AM CDT MAGNESIUM LEVEL Routine 10/05/2023 4:18 AM CDT COMPREHENSIVE METABOLIC PANEL Routine 10/05/2023 4:18 AM CDT COMPLETE BLOOD COUNT W/ DIFFERENTIAL Routine 10/05/2023 4:18 AM CDT .CBC Routine 10/04/2023 4:17 AM CDT PHOSPHORUS LEVEL Routine 10/04/2023 4:17 AM CDT MAGNESIUM LEVEL Routine 10/04/2023 4:17 AM CDT COMPREHENSIVE METABOLIC PANEL Routine 10/04/2023 4:17 AM CDT COMPLETE BLOOD COUNT W/ DIFFERENTIAL Routine 10/04/2023 4:17 AM CDT .CBC Routine 10/03/2023 4:23 AM CDT PHOSPHORUS LEVEL Routine 10/03/2023 4:23 AM CDT MAGNESIUM LEVEL Routine 10/03/2023 4:23 AM CDT COMPREHENSIVE METABOLIC PANEL Routine 10/03/2023 4:23 AM CDT COMPLETE BLOOD COUNT W/ DIFFERENTIAL Routine 10/03/2023 4:23 AM CDT COMPREHENSIVE METABOLIC PANEL Routine 10/02/2023 5:21 AM CDT .CBC Routine 10/02/2023 5:20 AM CDT COMPLETE BLOOD COUNT W/ DIFFERENTIAL Routine 10/02/2023 5:20 AM CDT URINE CULTURE Routine 10/01/2023 8:31 PM CDT URINALYSIS WITH MICROSCOPIC Routine 10/01/2023 8:30 PM CDT XR CHEST 1 VW Routine 10/01/2023 12:28 PM CDT POC VENOUS BLOOD GAS + LACTATE Routine 10/01/2023 12:02 PM CDT .CBC Routine 10/01/2023 11:58 AM CDT LACTATE DEHYDROGENASE Routine 10/01/2023 11:58 AM CDT FRACTIONATED BILIRUBIN Routine 11:58 AM CDT APTT Routine 10/01/2023 11:58 AM CDT PROTHROMBIN TIME Routine 10/01/2023 11:5 8 AM CDT PHOSPHORUS LEVEL Routine 10/01/2023 11:5 8 AM CDT MAGNESIUM LEVEL Routine 10/01/2023 11:58 AM CDT COMPREHENSIVE METABOLIC PANEL Routine 10/01/2023 11:58 AM CDT COMPLETE BLOOD COUNT W/ DIFFERENTIAL Routine 10/01/2023 11:58 AM CDT AMMONIA LEVEL Routine 10/01/2023 11:58 AM CDT BLOOD CULTURE Routine 10/01/2023 11:[address] HEAD WO CONTRAST STAT 10/01/2023 1 1:37 AM CDT POC GLUCOSE SCREEN Routine 10/01/2023 11 :17 AM CDT DIFFERENTIAL Routine 08/11/2023 5:02 AM CDT .CBC [...] 3:38 AM CDT PHOSPHORUS LEVEL Routine 07/01/2023 3:3 8 AM CDT MAGNESIUM LEVEL Routine 07/01/2023 3:38 [...] brain LIPID PANEL Routine 04/18/2023 2:50 PM [employer] Malignant neoplasm of unspecified part of unspecified bronchus or lung MAGNESIUM LEVEL Routine 04/18/2023 2:50 PM [employer] Malignant neoplasm of unspecified part of unspecified bronchus or lung CREATINE KINASE Routine 04/18/2023 2:50 PM [employer] Malignant neoplasm of unspecified part of unspecified bronchus or lung COMPREHENSIVE METABOLIC PANEL Routine 04/18/2023 2:50 PM [employer] Malignant neoplasm of unspecified part of unspecified bronchus or lung CT CHEST ABDOMEN PELVIS W CONTRAST Routine 04/16/2023 5:20 PM [employer] Non-small cell carcinoma of lung, TNM stage 4 <Unspecified side> POC CREATININE Routine 04/16/2023 4:39 PM M[employer]ED [employer]ICE BR[employer]ER WI [facility]ER[facility] RADIATION [place] MANAGEMENT CRANIAL LESION 04/11/2023 8:03 AM [employer] Secondary malignant neoplasm of brain .CBC Routine 04/09/2023 10:59 AM [employer] Secondary malignant neoplasm of brain COMPLETE BLOOD COUNT W/ DIFFERENTIAL Routine 04/09/2023 10:59 AM [employer] Secondary malignant neoplasm of brain MRI BRAIN WITH AND WITHOUT CONTRAST - FRAMELESS GAMMA KNIFE Routine 04/09/2023 8:55 AM [employer] Secondary malignant neoplasm of brain MRI BRAIN W WO CONTRAST - ABTI Routine 02/14/2023 11:23 AM [employer]ER Secondary malignant neoplasm of brain POC CREATININE Routine 02/14/2023 9:01 AM [address] [employer] [address] CT CHEST ABDOMEN PELVIS W CONTRAST Routine [...] stage 4 <Unspecified side> ALANINE AMINOTRANSFERASE Routine 11:19 AM CDT Non-small cell carcinoma [...] lung, TNM stage 4 <Unspecified side> after 10/21/2022 Results * (ABNORMAL) .CBC (10/08/2023 4:33 AM CDT) Only the most recent of41 resultswithin the time period is included. White Blood Cell 7.7 4.1 - 10.5 K/uL 10/08/2023 4:59 AM CDT [facility] Red Blood Cell 3.51(L) 3.99 - 5.46 M/uL 10/08/2023 4:59 AM CDT [facility] Hemoglobin 10.5(L) 12.2 - 15.3 g/dL 10/08/2023 4:59 AM CDT [facility] Hematocrit 32.8(L) 36.4 - 46.8 % 10/08/2023 4:59 AM CDT [facility] Mean Cell Volume 93 82 - 99 fL 10/08/2023 4:59 AM CDT [facility] Mean Cell Hemoglobin 29.9 26.6 - 33.2 pg 10/08/2023 4:59 AM CDT [facility] Mean Cell Hemoglobin Concentration 32.0 31.1 - 35.2 g/dL 10/08/2023 4:59 AM CDT [facility] RDW-SD 48.8 37.5 - 49.7 fL 10/08/2023 4:59 AM CDT [facility] Red Cell Diameter Width 14.3 11.6 - 15.5 % 10/08/2023 4:59 AM CDT [facility] Platelet 247 160 - 397 K/uL 10/08/2023 4:59 AM CDT [facility] Mean Platelet Volume 10.2 9.1 - 12.6 fL 10/08/2023 4:59 AM CDT [facility] INRBC 0.3(H) 0.0 - 0.1 /100 WBC 10/08/2023 4:59 AM T [facility] Comment: The INRBC (instrument NRBC) value reflects the enumeration of nucleated red blood cells contained in a 200uL sample of whole blood analyzed by the instrument. This value may differ from the NRBC value reported in a manual differential, which is based on a 100 cell differential. Neutrophil % 65.6 43.2 - 72.7 % 10/08/2023 4:59 AM CDT [facility] Lymphocyte % 23.6 16.8 - 46.2 % 10/08/2023 4:59 AM CDT [facility] Monocyte % 7.4 5.1 - 12.5 % 10/08/2023 4:59 AM CDT [facility] Eosinophil % 0.0(L) 0.4 - 6.3 % 10/08/2023 4:59 AM CDT [facility] Basophil % 0.3 0.2 - 1.4 % 10/08/2023 4:59 AM CDT [facility] IGRE % 3.1(H) 0.1 - 1.5 % 10/08/2023 4:59 AM CDT [facility] Comment:The IGRE% includes M etamyelocytes, Myelocytes and Promyelocytes. Neutrophil Abs 5.06 1.95 - 7.25 K/uL 10/08/2023 4:59 AM CDT [facility] Lymphocyte Abs 1.82 1.01 - 3.24 K/uL 10/08/2023 4:59 AM CDT [facility] Monocyte Abs 0.57 0.24 - 0.85 K/uL 10/08/2023 4:59 AM CDT [facility] Eosinophil Abs 0.00(L) 0.02 - 0.50 K/uL 10/08/2023 4:59 AM CDT [facility] Basophil Abs 0.02 0.02 - 0.09 K/uL 10/08/2023 4:59 AM CDT [facility] IG Abs 0.24(H) 0.01 - 0.12 K/uL 10/08/2023 4:59 AM CDT [facility] Blood Peripheral blood specimen / Unknown Venipuncture / Unknown 10/08/2023 4:33 AM CDT 10/08/2023 4:47 AM CDT Tk Stevens APRN LAB BLOOD ORDERABL ES [facility] Unless otherwise noted, all lab tests performed by: Division of Pathology and Laboratory Medicine [address] [place] [id number] * (ABNORMAL) Comprehensive Metabolic Panel (10/08/2023 4:33 AM CDT) Only the most recent of23 resultswithin the time period is included. Bilirubin Total <0.3 0.0 - 1.2 mg/dL 10/08/2023 5:22 AM CDT [facility] Comment:Indocyanine Green (I CG) may cause falsely elevated bilirubin results. Total and direct bilirubin must not be measured from samples containing indocyanine green. False elevation of total bilirubin can be seen in patients with IgG concentrations above 28 g/L. eGFR 91 >=60 mL/min/1. 73 sq. m 10/08/2023 5:22 AM CDT [facility] Comment: The eGFRcr is calculated with [...] G2 fulfill criteria for CKD. Tot Protein 6.0(L) 6.4 - 8.3 gm/dL 10/08/2023 5:22 AM CDT [facility] Calcium Level Total 8.2 8.2 - 10.2 mg/dL 10/08/2023 5:22 AM CDT [facility] Alkaline Phosphatase 66 35 - 104 U/L 10/08/2023 5:22 AM CDT [facility] Albumin Level 3.5 3.5 - 5.2 gm/dL 10/08/2023 5:22 AM CDT [facility] AST 8 <=32 U/L 10/08/2023 5:22 AM CDT [facility] ALT 11 <=33 U/L 10/08/2023 5:22 AM CDT [facility] Sodium Level 141 136 - 145 mmol/L 10/08/2023 5:22 AM CDT [facility] Potassium Level 4.3 3.4 - 4.5 mmol/L 10/08/2023 5:22 AM CDT [facility] Chloride 108(H) 98 - 107 mmol/L 10/08/2023 5:22 AM CDT [facility] CO2 26 22 - 29 mmol/L 10/08/2023 5:22 AM CDT [facility] Anion Gap 7 4 - 14 mmol/L 10/08/2023 5:22 AM CDT [facility] Creatinine 0.79 0.51 - 0.95 mg/dL 10/08/2023 5:22 AM CDT [facility] BUN 33(H) 6 - 23 mg/dL 10/08/2023 5:22 AM CDT [facility] Glucose Level 91 70 - 99 mg/dL 10/08/2023 5:22 AM CDT [facility] Comment: Effective 10/13/15, the glucose reference intervals have been updated based on [place] [employer] guidelines (Standards of Medical Care in Diabetes 2016. Diabetes Care 2016; 39: S13-S22). Fasting blood glucose: Normal: 70-99 mg/dL Impaired fasting glucose (increased risk for diabetes or pre-diabetes): 100-125 mg/dL Diabetes mellitus: >/=126 mg/dL Random blood glucose: Normal: 70-199 mg/dL Note: Random glucose >100 mg/dL is associated with increased risk for diabetes. Blood Peripheral blood specimen / Unknown Venipuncture / Unknown 10/08/2023 4:33 AM CDT 10/08/2023 4:47 AM CDT Tk Stevens APRN LAB BLOOD ORDERABL ES [facility] Unless otherwise noted, all lab tests performed by: Division of Pathology and Laboratory Medicine [address] [place] [id number] * Phosphorus Level (10/08/2023 4:33 AM CDT) Only the most recent of36 resultswithin the time period is included. Phosphorus Level 4.3 2.5 - 4.5 mg/dL 10/08/2023 5:22 AM CDT [facility] Blood Peripheral blood specimen / Unknown Venipuncture / Unknown 10/08/2023 4:33 AM CDT 10/08/2023 4:47 AM CDT Michael Ko MD LAB BLOOD ORDERAB LES [facility] Unless otherwise noted, all lab tests performed by: Division of Pathology and Laboratory Medicine [address] [place] [id number] * Magnesium Level (10/08/2023 4:33 AM CDT) Only the most recent of36 resultswithin the time period is included. Magnesium Level 2.2 1.6 - 2.6 mg/dL 10/08/2023 5:22 AM CDT [facility] Blood Peripheral blood specimen / Unknown Venipuncture / Unknown 10/08/2023 4:33 AM CDT 10/08/2023 4:47 AM CDT Michael Ko MD LAB BLOOD ORDERAB LES Performing Organization Address [facility] Co de Phone Number [facility] Unless otherwise noted, all lab tests performed by: Division of Pathology and Laboratory Medicine [address] [place] [id number] * MRI Brain with and without Contrast (10/05/2023 12:40 PM CDT) Only the most recent of5 resultswithin the time period is included. Anatomical Region Laterality Modality Head Magnetic Resonan ce 10/05/2023 1:59 PM CDT Impressions 10/05/2023 3:13 PM CDT 1. New right periatrial lesion from brain MRI on 08/08/2023. This may represent post treatment change, to be followed. 2. 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 Increased perfusion about the periphery of the lesion is suspicious for viable tumor. Further evaluation with ABTI would be helpful. 3. Additional previously treated lesions are stable. 4. Leptomeningeal disease is absent. 5. Unchanged left temporal postsurgical changes from prior resection and right parietal subdural hematoma. ACTIONABLE ITEMS/RECOMMENDATIONS*: None. *An Actionable Finding is [...] and agree with the final report. Narrative 10/05/2023 3:13 PM CDT FULL RESULT: Examination: MRI BRAIN W WO CONTRAST on 10/05/2023 12:40 PM. CLINICAL HISTORY: metastatic lung adenocarcinoma status post whole brain radiation 2016, craniotomy with left temporal tumor resection 02/10/2020, whole brain completed 04/22/2020, Gamma knife 04/11/2023 INDICATION: Neurologic deficit consistent with brain pathology, Intracranial neoplasm (known or suspected), Altered mental status, brain met with swelling; new aphasia COMPARISON: Head CT on 10/02/2023. Brain MRI on 08/08/2023. TECHNIQUE: MRI of the brain without and with IV contrast was performed. FINDINGS: New Lesions: New 8 mm enhancing curvilinear right periatrial lesion on series 1000, image 133 Non-irradiated Lesions: None Proximity to Hippocampus: No concerns. Irradiated Lesions: * A 2.2 x 2.2 cm peripherally enhancing right insular lesion continues to increase in size and now results in more vasogenic edema when compared to previous brain MRI. Mass effect results in effacement of the right lateral ventricle without midline shift. There is increased cerebral blood flow around the periphery of the lesion. * Remaining treated lesions are stable from 08/08/2023 and annotated on series 1000. Leptomeningeal Disease: None. Others: No acute hemorrhage or acute hydrocephalus. No acute osseous abnormality. Unchanged postsurgical changes including a left temporal craniotomy and 3.5 cm left temporal postsurgical cavity without suspicious enhancement within the cavity. Unchanged 1.2 cm thick chronic right parietal subdural collection. Opacification of numerous mastoid air cells bilaterally. Clear paranasal sinuses. Normal orbits. Procedure Note Sharlene Wayne MD - 10/05/2023 FULL RESULT: Examination: MRI BRAIN W WO CONTRAST on 10/05/2023 12:40 PM. CLINICAL HISTORY: metastatic lung adenocarcinoma status post whole brainradiation 2017, craniotomy with left temporal tumor resection 02/10/2020,whole brain completed 04/22/2020, Gamma knife 04/11/2023 INDICATION: Neurologic deficit consistent with brain pathology,Intracranial neoplasm (known or suspected), Altered mental status, brainmet with swelling; new aphasia COMPARISON: Head CT on 10/02/2023. Brain MRI on 08/08/2023. TECHNIQUE: MRI of the brain without and with IV contrast was performed. FINDINGS: New Lesions: New 8 mm enhancing curvilinear right periatrial lesion on series 1000,image 133 Non-irradiated Lesions: None Proximity to Hippocampus: No concerns. Irradiated Lesions: * A 2.2 x 2.2 cm peripherally enhancing right insular lesion continues toincrease in size and now results in more vasogenic edema when compared toprevious brain MRI. Mass effect results in effacement of the right lateralventricle without midline shift. There is increased cerebral blood flowaround the periphery of the lesion. * Remaining treated lesions are stable from 08/08/2023 and annotated onseries 1000. Leptomeningeal Disease: None. Others: No acute hemorrhage or acute hydrocephalus. No acute osseous abnormality. Unchanged postsurgical changes including a left temporal craniotomy and3.5 cm left temporal postsurgical cavity without suspicious enhancementwithin the cavity. Unchanged 1.2 cm thick chronic right parietal subdural collection. Opacification of numerous mastoid air cells bilaterally. Clear paranasal sinuses. Normal orbits. IMPRESSION: 1. New right periatrial lesion from brain MRI on 08/08/2023. This mayrepresent post treatment change, to be followed. 2. Enlarging right insular metastasis results in vasogenic edema andregional mass effect without midline shift. Increased perfusion about theperiphery of the lesion is suspicious for viable tumor. Further evaluationwith ABTI would be helpful. 3. Additional previously treated lesions are stable. 4. Leptomeningeal disease is absent. 5. Unchanged left temporal postsurgical changes from prior resection andright parietal subdural hematoma. ACTIONABLE ITEMS/RECOMMENDATIONS*: None. *An Actionable Finding is [...] present, and agree with the final report. Tk Cisnerosn BRIDGE PAINTER IMG MRI ORDERABLES * (ABNORMAL) Urine Culture (10/01/2023 8:31 PM CDT) Only the most recent of6 resultswithin the time period is included. Urine Culture 10-50,000 CFU/mL Proteus mirabilis(A) 10/05/2023 8:35 AM CDT [facility] Urine Culture 10-50,000 CFU/mL Escherichia coli(A) 10/05/2023 8:35 AM CDT [facility] Urine Culture Arthrobacter cumminsii(A) 10/05/2023 8:35 AM CDT [facility] Comment: This species identification is not FDA approved. Unable to quantitate due to overgrowth of Gram Negative Rods Urine Voided urine specimen / Unknown Non-blood Collection / Unknown 10/01/2023 8:31 PM CDT 10/01/2023 8:33 PM CDT Narrative Organism Antibiotic Method Susceptibility Proteus mirabilis Ampicillin MINIMUM INHIBI TORY CONCENTRATION <=2 mcg/mL: Susceptible Proteus mirabilis Ampicillin/Sulbactam MINIMUM I NHIBITORY CONCENTRATION <=2 mcg/mL: Susceptible Proteus mirabilis Piperacillin/Tazobactam MINIMU M INHIBITORY CONCENTRATION <=4 mcg/mL: Susceptible Proteus mirabilis Cefpodoxime MINIMUM INHIBI TORY CONCENTRATION <=0.25 mcg/mL: Susceptible Proteus mirabilis Cefotaxime MINIMUM INHIBI TORY CONCENTRATION <=0.25 mcg/mL: Susceptible Proteus mirabilis Ceftazidime MINIMUM INHIBI TORY CONCENTRATION <=1 mcg/mL: Susceptible Proteus mirabilis Ceftriaxone MINIMUM INHIBI TORY CONCENTRATION <=0.25 mcg/mL: Susceptible Proteus mirabilis Cefepime MINIMUM INHIBI TORY CONCENTRATION 0.25 mcg/mL: Susceptible Proteus mirabilis Aztreonam MINIMUM INHIBI TORY CONCENTRATION <=1 mcg/mL: Susceptible Proteus mirabilis Ertapenem MINIMUM INHIBI TORY CONCENTRATION <=0.12 mcg/mL: Susceptible Proteus mirabilis Meropenem MINIMUM INHIBI TORY CONCENTRATION 1 mcg/mL: Susceptible Proteus mirabilis Amikacin MINIMUM INHIBI TORY CONCENTRATION 4 mcg/mL: Susceptible Proteus mirabilis Tobramycin MINIMUM INHIBI TORY CONCENTRATION <=1 mcg/mL: Susceptible Proteus mirabilis Ciprofloxacin MINIMUM INHIBI TORY CONCENTRATION <=0.06 mcg/mL: Susceptible Proteus mirabilis Levofloxacin MINIMUM INHIBI TORY CONCENTRATION <=0.12 mcg/mL: Susceptible Proteus mirabilis Nitrofurantoin MINIMUM INHIBI TORY CONCENTRATION 128 mcg/mL: Resistant Proteus mirabilis Trimethoprim/Sulfame tho xazole MINIMUM INHIBITORY CONCENTRATION <=20 mcg/mL: Susceptible Proteus mirabilis Amoxicillin/Clavulanate MINIMU M INHIBITORY CONCENTRATION 1.5 mcg/mL: Susceptible Escherichia coli Ampicillin MINIMUM INHIBIT ORY CONCENTRATION <=2 mcg/mL: Susceptible Escherichia coli Amoxicillin/Clavulanate MINIMUM INHIBITORY CONCENTRATION <=2 mcg/mL: Susceptible Escherichia coli Ampicillin/Sulbactam MINIMUM IN HIBITORY CONCENTRATION <=2 mcg/mL: Susceptible Escherichia coli Piperacillin/Tazobactam MINIMUM INHIBITORY CONCENTRATION <=4 mcg/mL: Susceptible Escherichia coli Cefpodoxime MINIMUM INHIBIT ORY CONCENTRATION <=0.25 mcg/mL: Susceptible Escherichia coli Cefotaxime MINIMUM INHIBIT ORY CONCENTRATION <=0.25 mcg/mL: Susceptible Escherichia coli Ceftazidime MINIMUM INHIBIT ORY CONCENTRATION <=1 mcg/mL: Susceptible Escherichia coli Ceftriaxone MINIMUM INHIBIT ORY CONCENTRATION <=0.25 mcg/mL: Susceptible Escherichia coli Cefepime MINIMUM INHIBIT ORY CONCENTRATION <=0.12 mcg/mL: Susceptible Escherichia coli Aztreonam MINIMUM INHIBIT ORY CONCENTRATION <=1 mcg/mL: Susceptible Escherichia coli Ertapenem MINIMUM INHIBIT ORY CONCENTRATION <=0.12 mcg/mL: Susceptible Escherichia coli Imipenem MINIMUM INHIBIT ORY CONCENTRATION <=0.25 mcg/mL: Susceptible Escherichia coli Meropenem MINIMUM INHIBIT ORY CONCENTRATION <=0.25 mcg/mL: Susceptible Escherichia coli Amikacin MINIMUM INHIBIT ORY CONCENTRATION 2 mcg/mL: Susceptible Escherichia coli Tobramycin MINIMUM INHIBIT ORY CONCENTRATION <=1 mcg/mL: Susceptible Escherichia coli Ciprofloxacin MINIMUM INHIBIT ORY CONCENTRATION <=0.06 mcg/mL: Susceptible Escherichia coli Levofloxacin MINIMUM INHIBIT ORY CONCENTRATION <=0.12 mcg/mL: Susceptible Escherichia coli Nitrofurantoin MINIMUM INHIBIT ORY CONCENTRATION <=16 mcg/mL: Susceptible Escherichia coli Trimethoprim/Sulfame tho xazole MINIMUM INHIBITORY CONCENTRATION <=20 mcg/mL: Susceptible Zuri Farr MD MICROBIOLOGY - GENER AL ORDERABLES [facility] Unless otherwise noted, all lab tests performed by: Division of Pathology and Laboratory Medicine [facility] [place] [address] * (ABNORMAL) Urinalysis with Microscopic (10/01/2023 8:30 PM CDT) Urine Appearance Clear Clear 10/01/19 8:53 PM CDT [facility] Comment:This result was prev iously suppressed from the chart. Urine Color Straw Colorless, Straw, Yellow, Dark Yellow, Straw-Yellow 10/01/2023 8:53 PM CDT [facility] Comment:This result was prev iously suppressed from the chart. Urine Specific [place] 1.021 1.003 - 1.035 10/01/2023 8:53 PM CDT [facility] Comment:This result was prev iously suppressed from the chart. Urine pH 6.5 5.0 - 8.0 10/01/2023 8:53 PM CDT [facility] Comment:This result was prev iously suppressed from the chart. Urine Glucose Negative Negative mg/dL 10/01/2023 8:53 PM CDT [facility] Comment:This result was prev iously suppressed from the chart. Urine Ketones Negative Negative mg/dL 10/01/2023 8:53 PM CDT [facility] Comment:This result was prev iously suppressed from the chart. Urine Blood Small(A) Negative 10/01/2023 8:53 PM CDT [facility] Comment:This result was prev iously suppressed from the chart. Urine Protein Negative Negative mg/dL 10/01/2023 8:53 PM CDT [facility] Comment:This result was prev iously suppressed from the chart. Urine Bilirubin Negative Negative 8:53 PM CDT [facility] Urine Urobilinogen Negative Negative 10/01/2023 8:53 PM CDT [facility] Urine Nitrite Negative Negative 10/01/2023 8:53 PM CDT [facility] Comment:This result was prev iously suppressed from the chart. Urine Leukocyte Esterase Negative Negative 10/01/2023 8:53 PM CDT [facility] Comment:This result was prev iously suppressed from the chart. Urine WBC <1 <=2 /HPF 10/01/2023 8:53 PM CDT [facility] Urine RBC 1 <=2 /HPF 10/01/2023 8:53 PM CDT [facility] Urine Mucous Not Seen Not Seen, Trace /HPF 10/01/2023 8:53 PM CDT [facility] Comment:This result was prev iously suppressed from the chart. Urine Bacteria Not Seen Not Seen /HPF 10/01/2023 8:53 PM CDT [facility] Comment:This result was prev iously suppressed from the chart. Urine Squamous Epithelial Cells OCC Not Seen, OCC, Rare /HPF 10/01/2023 8:53 PM CDT [facility] Comment:This result was prev iously suppressed from the chart. Urine (Urine Clean Catch) Non-blood Collection / Unknown 10/01/2023 8:30 PM CDT 10/01/2023 8:33 PM CDT Narrative [facility] - 10/01/2023 8:53 PM CDT Some reporting parameters within the Urinalysis test have changed due to the implementation of new instrumentation in the Main [place], allowing greater sensitivity of measurement. Urinalysis results reported by the [facility] using existing instrumentation, as well as Urinalysis testing performed manually or by back-up methodology at the [place], will remain relatively unchanged. New reporting parameters and units will now be reported for all campuses. Erasmo Gamez MD URINE ORDERABLES [facility] Unless otherwise noted, all lab tests performed by: Division of Pathology and Laboratory Medicine [address] [place] [id number] * X-ray Chest 1 View (10/01/2023 12:28 PM CDT) Only the most recent of4 resultswithin the time period is included. Anatomical Region Laterality Modality Chest Digital Radiogra phy 10/01/2023 12:2 9 PM CDT Impressions 10/01/2023 12:32 PM CDT No acute infiltrates are detected. ACTIONABLE ITEMS/RECOMMENDATIONS*: None. *An Actionable Finding is a finding that may be unrelated to the original reason for imaging but potentially actionable, meaning further investigation may be necessary. The Actionable Findings Vigilance Unit (AFVU) assists medical providers with responding to additional radiologic findings that are unexpected and potentially actionable. Narrative 10/01/2023 12:32 PM CDT FULL RESULT: Examination: XR CHEST 1 VW on 10/01/2023 12:28 PM. Clinical History: Metastatic lung cancer Indication: Altered Mental Status Comparison: Chest radiography August 03, 2023, July 30, 2023. Chest CT the sixth 2023. Technique: Frontal radiograph of the chest Findings: Support Apparatus: None. Lungs/Pleura/Mediastinum: Known pulmonary nodules are not well represented radiographically. No infiltrates or effusions are detected. Heart size is within normal limits. The gastric band with associated tubing is again visualized. Procedure Note Marie Domingo MD - 10/01/2023 FULL RESULT: Examination: XR CHEST 1 VW on 10/01/2023 12:28 PM. Clinical History: Metastatic lung cancer Indication: Altered Mental Status Comparison: Chest radiography August 03, 2023, July 30, 2023. Chest CT thesixth 2023. Technique: Frontal radiograph of the chest Findings: Support Apparatus: None. Lungs/Pleura/Mediastinum: Known pulmonary nodules are not well representedradiographically. No infiltrates or effusions are detected. Heart size iswithin normal limits. The gastric band with associated tubing is againvisualized. IMPRESSION: No acute infiltrates are detected. ACTIONABLE ITEMS/RECOMMENDATIONS*: None. *An Actionable Finding is a finding that may be unrelated to the originalreason for imaging but potentially actionable, meaning furtherinvestigation may be necessary. The Actionable Findings Vigilance Unit(AFVU) assists medical providers with responding to additional radiologicfindings that are unexpected and potentially actionable. Cathy Ramirez MD IMG DIAGNOSTIC IMAG ING ORDERABLES * (ABNORMAL) POC VBG+LAC (10/01/2023 12:02 PM CDT) Only the most recent of4 resultswithin the time period is included. POC VB pH. 7.334 7.310 - 7.410 10/01/2023 12:19 PM CDT [facility] POC VB pCO2. 48.8 41.0 - 51.0 mmHg 10/01/2023 12:19 PM CDT [facility] POC VB pO2. 20 mmHg 10/01/2023 12:19 PM CDT [facility] POC VB TCO2 27 24 - 29 mmol/L 10/01/2023 12:19 PM CDT [facility] POC VB Bicarb 26.0 23.0 - 28.0 mmol/L 10/01/2023 12:19 PM CDT [facility] POC VB Base Excess 0 -2 - 3 mmol/L 10/01/2023 12:19 PM CDT [facility] POC VB O2 Sat 27 % 10/01/2023 12:19 PM CDT [facility] POC VB LAC 0.77(L) 0.90 - 1.70 mmol/L 10/01/2023 12:19 PM CDT [facility] POC FiO2 10/01/2023 12:19 PM CDT [facility] POC Sample Type Venous 10/01/2023 12:19 PM CDT [facility] Blood 10/01/2023 12:0 2 PM CDT 10/01/2023 12:19 PM CDT Narrative [facility] - 10/01/2023 12:19 PM CDT Method description: The i-STAT is [...] measure analyte concentration by an electrochemical assay. Zuri Farr MD POCT ORDERABLES - DE VICE [facility] Unless otherwise noted, all lab tests performed by: Division of Pathology and Laboratory Medicine [facility] [place] [address] * Fractionated Bilirubin (10/01/2023 11:58 AM CDT) Only the most recent of5 resultswithin the time period is included. Bilirubin Direct 10/01/19 12:49 PM CDT [facility] Comment: Direct and indirect bilirubin will not be reported when Total bilirubin result is <0.3 mg/dL Indocyanine Green (ICG) may cause falsely elevated bilirubin results. Total and direct bilirubin must not be measured from samples containing indocyanine green. Bilirubin Indirect 2023 12:49 PM CDT [facility] Comment:Direct and indirect bilirubin will not be reported when Total bilirubin result is <0.3 mg/dL Bilirubin Total <0.3 0.0 - 1.2 mg/dL 10/01/2023 12:49 PM CDT [facility] Comment: Direct and indirect bilirubin will [...] blood specimen / Unknown Venipuncture / Unknown 10/01/2023 11:58 AM CDT 10/01/2023 12:05 PM CDT Cathy Ramirez MD LAB BLOOD ORDERABLE S [facility] Unless otherwise noted, all lab tests performed by: Division of Pathology and Laboratory Medicine [address] [place] [id number] * aPTT (10/01/2023 11:58 AM CDT) Only the most recent of3 resultswithin the time period is included. Pathologist [facility] Activated PTT 32.2 24.1 - 35.5 second(s) 10/01/2023 12:38 PM CDT [facility] Blood Peripheral blood specimen / Unknown Venipuncture / Unknown 10/01/2023 11:58 AM CDT 10/01/2023 12:05 PM CDT Cathy Ramirez MD LAB BLOOD ORDERABLE S [facility] Unless otherwise noted, all lab tests performed by: Division of Pathology and Laboratory Medicine [address] [place] [id number] * Blood Culture (10/01/2023 11:58 AM CDT) Only the most recent of6 resultswithin the time period is included. Pathologist [facility] Blood Culture No Growth. 10/06/2023 1:01 PM CDT [facility] Blood Peripheral blood specimen / Unknown Venipuncture / Unknown 10/01/2023 11:58 AM CDT 10/01/2023 12:05 PM CDT Cathy Ramirez MD MICROBIOLOGY - GENE RAL ORDERABLES Performing Organization Address City/[facility] Co de Phone Number [facility] Unless otherwise noted, all lab tests performed by: Division of Pathology and Laboratory Medicine [address] [place] [phone] * Prothrombin Time with INR (10/01/2023 11:58 AM CDT) Only the most recent of3 resultswithin the time period is included. Pathologist [facility] Prothrombin Time 13.3 11.9 - 14.5 second(s) 10/01/2023 12:38 PM CDT [facility] International Normalization Ratio 1.01 0.87 - 1.12 10/01/2023 12:38 PM CDT [facility] Blood Peripheral blood specimen / Unknown Venipuncture / Unknown 10/01/2023 11:58 AM CDT 10/01/2023 12:05 PM CDT Cathy Ramirez MD LAB BLOOD ORDERABLE S Performing Organization Address [facility] Co de Phone Number [facility] Unless otherwise noted, all lab tests performed by: Division of Pathology and Laboratory Medicine [address] [place] [phone] * (ABNORMAL) LDH (10/01/2023 11:58 AM CDT) Only the most recent of3 resultswithin the time period is included. LDH 223(H) 135 - 214 U/L 10/01/2023 12:49 PM CDT [facility] Blood Peripheral blood specimen / Unknown Venipuncture / Unknown 10/01/2023 11:58 AM CDT 10/01/2023 12:05 PM CDT Narrative [facility] - 10/01/2023 12:49 PM CDT Results greater than 1651 U/L may not be reliable due to matrix effect with extended dilution as it exceeds the marketing analytics specialist's recommended limit. Caution should be exercised when interpreting such values and done in conjunction with clinical context. Cathy Ramirez MD LAB BLOOD ORDERABLE S Performing Organization Address [facility] Co de Phone Number [facility] Unless otherwise noted, all lab tests performed by: Division of Pathology and Laboratory Medicine [address] [place] [id number] * Ammonia Level (10/01/2023 11:58 AM CDT) Only the most recent of3 resultswithin the time period is included. Ammonia Level 15 11 - 51 mcmol/L 10/01/2023 12:34 PM CDT [facility] Blood Peripheral blood specimen / Unknown Venipuncture / Unknown 10/01/2023 11:58 AM CDT 10/01/2023 12:05 PM CDT Cathy Ramirez MD LAB BLOOD ORDERABLE S Performing Organization Address City/[facility]/ZIP Co de Phone Number [facility] Unless otherwise noted, all lab tests performed by: Division of Pathology and Laboratory Medicine [address] [place] [phone] * CT Head without Contrast (10/01/2023 11:37 AM CDT) Only the most recent of6 resultswithin the time period is included. Anatomical Region Laterality Modality Head Computed Tomogra phy 10/01/2023 11:4 5 AM CDT Impressions 10/01/2023 12:22 PM CDT 1. The treated right insular metastasis appears to have increased in size with worsening surrounding edema, incompletely characterized due to lack of intravenous contrast. MRI of the brain with contrast is recommended. 2. Additional supra and infratentorial metastases are not appreciated on the current exam. 3. Similar appearance of a left temporal lobe resection cavity. 4. Right parietal subdural convexity hematoma shows no worrisome interval change. ACTIONABLE ITEMS/RECOMMENDATIONS*: None. *An Actionable Finding is a finding that may be unrelated to the original reason for imaging but potentially actionable, meaning further investigation may be necessary. The Actionable Findings Vigilance Unit (AFVU) assists medical providers with responding to additional radiologic findings that are unexpected and potentially actionable. Narrative 10/01/2023 12:22 PM CDT FULL RESULT: Examination: CT HEAD WO CONTRAST on 10/01/2023 11:37 AM. CLINICAL HISTORY: Patient with history of metastatic lung cancer INDICATION: syncope, Altered Mental Status COMPARISON: None. TECHNIQUE: CT head without IV contrast was performed. FINDINGS: Intracranial: There are postoperative changes secondary to metastasis resection in the left temporal lobe. The cavity appears similar when compared to most recent MRI taking into account differences in imaging modality. A treated right anterior insular metastasis is incompletely delineated due to lack of intravenous contrast yet appears to have increased in size measuring approximately 1.7 cm as compared to 1 cm previously. Surrounding edema has markedly increased. There is mild effacement of the adjacent right lateral ventricle without significant midline shift or hydrocephalus. Multiple additional treated metastases are not well evaluated due to lack of intravenous contrast. The patient is status post bilateral middle meningeal artery embolization. A hypodense subdural collection in the right parietal convexity measures up to 1.3 cm in thickness, not significantly changed. Mild mass effect on the adjacent brain parenchyma is stable. Trace hypodense subdural fluid along the posterior left parietal convexity measures less than 0.5 cm. Bone: There are no suspicious lytic or sclerotic calvarial and skull base lesions. Opacified mastoid air cells are noted bilaterally, left greater than right. Extracranial: The orbits are unremarkable. The visualized paranasal sinuses are predominantly clear. Procedure Note Tere Hawkins MD - 10/01/2023 FULL RESULT: Examination: CT HEAD WO CONTRAST on 10/01/2023 11:37 AM. CLINICAL HISTORY: Patient with history of metastatic lung cancer INDICATION: syncope, Altered Mental Status COMPARISON: None. TECHNIQUE: CT head without IV contrast was performed. FINDINGS: Intracranial: There are postoperative changes secondary to metastasis resection in theleft temporal lobe. The cavity appears similar when compared to mostrecent MRI taking into account differences in imaging modality. A treated right anterior insular metastasis is incompletely delineated dueto lack of intravenous contrast yet appears to have increased in sizemeasuring approximately 1.7 cm as compared to 1 cm previously. Surroundingedema has markedly increased. There is mild effacement of the adjacentright lateral ventricle without significant midline shift orhydrocephalus. Multiple additional treated metastases are not well evaluated due to lackof intravenous contrast. The patient is status post bilateral middle meningeal artery embolization.A hypodense subdural collection in the right parietal convexity measuresup to 1.3 cm in thickness, not significantly changed. Mild mass effect onthe adjacent brain parenchyma is stable. Trace hypodense subdural fluidalong the posterior left parietal convexity measures less than 0.5 cm. Bone: There are no suspicious lytic or sclerotic calvarial and skull baselesions. Opacified mastoid air cells are noted bilaterally, left greater thanright. Extracranial: The orbits are unremarkable. The visualized paranasal sinuses are predominantly clear. IMPRESSION: 1. The treated right insular metastasis appears to have increased in sizewith worsening surrounding edema, incompletely characterized due to lackof intravenous contrast. MRI of the brain with contrast is recommended. 2. Additional supra and infratentorial metastases are not appreciated onthe current exam. 3. Similar appearance of a left temporal lobe resection cavity. 4. Right parietal subdural convexity hematoma shows no worrisome intervalchange. ACTIONABLE ITEMS/RECOMMENDATIONS*: None. *An Actionable Finding is a finding that may be unrelated to the originalreason for imaging but potentially actionable, meaning furtherinvestigation may be necessary. The Actionable Findings Vigilance Unit(AFVU) assists medical providers with responding to additional radiologicfindings that are unexpected and potentially actionable. Cathy Ramirez MD IMG CT ORDERABLES * POC Glucose Screen - Fingerstick (10/01/2023 11:17 AM CDT) Only the most recent of8 resultswithin the time period is included. Pathologist [facility] Glucose Screen 90 70 - 99 mg/dL 10/01/2023 11:19 AM CDT [facility] POC Sample Type Capillary 10/01/2023 11:19 AM CDT [facility] Blood 10/01/2023 11:1 7 AM CDT 10/01/2023 11:19 AM CDT Narrative [facility] - 10/01/2023 11:19 AM CDT Capillary blood samples, e.g. obtained by [...] questionable test results by core lab methodology. Zuri Farr MD POCT ORDERABLES - DE VICE [facility] Unless otherwise noted, all lab tests performed by: Division of Pathology and Laboratory Medicine [address] [place] [id number] * (ABNORMAL) Basic Metabolic Panel- Total Calcium (08/11/2023 5:02 AM CDT) Only the most recent of17 resultswithin the time period is included. [facility] eGFR 103 >=60 mL/min/1.7 3 sq. m 08/11/2023 5:40 AM CDT [facility] Comment: The eGFRcr is calculated with [...] - 10.2 mg/dL 08/11/2023 5:40 AM CDT [facility] Sodium Level 141 136 - 145 mmol/L 08/11/2023 5:40 AM T [facility] Potassium Level 3.8 3.4 - 4.5 mmol/L 08/11/2023 5:40 AM CDT [facility] Chloride 106 98 - 107 mmol/L 08/11/2023 5:40 AM T [facility] CO2 24 22 - 29 mmol/L 08/11/2023 5:40 AM T [facility] Anion Gap 11 4 - 14 mmol/L 08/11/2023 5:40 AM T [facility] Creatinine 0.71 0.51 - 0.95 mg/dL 08/11/2023 5:40 AM T [facility] BUN 11 6 - 23 mg/dL 08/11/2023 5:40 AM T [facility] Glucose Level 92 70 - 99 mg/dL 08/11/2023 5:40 AM [facility] Comment: Effective 10/13/15, the glucose reference intervals have been updated based on [place] [employer] guidelines (Standards of Medical Care [...] CDT Asya Egan MD LAB BLOOD ORDERABLES [facility] Unless otherwise noted, all lab tests performed by: Division of Pathology and Laboratory Medicine [address] [place] [id number] * (ABNORMAL) Differential (08/11/2023 5:02 AM CDT) Only the most recent of6 resultswithin the time period is included. Total Cells 114 08/11/2023 9:56 AM CDT [facility] Manual Neutrophil % 73.0(H) 43.2 - 72.7 % 08/11/2023 9:56 AM CDT [facility] Comment:The Neutrophil count includes Bands. Manual Lymphocyte % 18.0 16.8 - 46.2 % 08/11/2023 9:56 AM CDT [facility] Manual Monocyte % 4.0(L) 5.1 - 12.5 % 08/11/2023 9:56 AM CDT [facility] Manual Eosinophil % 5.0 0.4 - 6.3 % 08/11/2023 9:56 AM CDT [facility] Metamyelocyte % 9:56 AM CDT [facility] Comment:The Metamyelocyte co unt includes Myelocytes. Manual Neutrophil Abs 3.94 1.95 - 7.25 K/uL 08/11/2023 9:56 AM CDT [facility] Manual Lymphocyte Abs 0.97(L) 1.01 - 3.24 K/uL 08/11/2023 9:56 AM CDT [facility] Manual Monocyte Abs 0.22(L) 0.24 - 0.85 K/uL 08/11/2023 9:56 AM CDT [facility] Manual Eosinophil Abs 0.27 0.02 - 0.50 K/uL 08/11/2023 9:56 AM CDT [facility] RBC Morphology PRESENT 08/11/2023 9:56 AM CDT [facility] Ovalocyte Present(A) (none) 08/11/2023 9:56 AM CDT [facility] Tear Drop Present(A) (none) 08/11/2023 9:56 AM CDT [facility] Slide Comment SEE NOTE 08/11/2023 9:56 AM CDT [facility] Comment:Platelet morphology normal. Blood Peripheral blood specimen / Unknown Venipuncture / Unknown 08/11/2023 5:02 AM CDT 08/11/2023 5:10 AM CDT Asya Egan MD LAB BLOOD ORDERABLES [facility] Unless otherwise noted, all lab tests performed by: Division of Pathology and Laboratory Medicine [address] [place] [phone] * Gastrointestinal Multiplex PCR Panel (08/04/2023 3:24 PM CDT) Only the most recent of3 resultswithin the time period is included. Campylobacter Not Detected Not Detected 08/04/2023 6:07 PM CDT [facility] Plesiomonas shigelloides Not Detected Not Detected 08/04/2023 6:07 PM CDT [facility] Salmonella Not Detected Not Detected 08/04/2023 6:07 PM CDT [facility] Vibrio Not Detected Not Detected 08/04/2023 6:07 PM CDT [facility] Vibrio cholerae Not Detected Not Detected 08/04/2023 6:07 PM CDT [facility] Yersinia enterocolitica Not Detected Not Detected 08/04/2023 6:07 PM CDT [facility] Enteroaggregative E. coli (EAEC) Not Detected Not Detected 08/04/2023 6:07 PM CDT [facility] Enteropathogenic E. coli (EPEC) Not Detected Not Detected 08/04/2023 6:07 PM CDT [facility] Enterotoxigenic E. coli (ETEC) LT/ST Not Detected Not Detected 08/04/2023 6:07 PM CDT [facility] Shiga-like toxin-producing E. coli (STEC) Stx1/Stx2 Not Detected Not Detected 08/04/2023 6:07 PM CDT [facility] E. coli O157 N/A Not Detected 08/04/2023 6:07 PM CDT [facility] Shigella/Enteroinvas lyndsay E. coli (EIEC) Not Detected Not Detected 08/04/2023 6:07 PM CDT [facility] Cryptosporidium Not Detected Not Detected 08/04/2023 6:07 PM CDT [facility] Cyclospora cayetanensis Not Detected Not Detected 08/04/2023 6:07 PM CDT [facility] Entamoeba histolytica Not Detected Not Detected 08/04/2023 6:07 PM CDT [facility] Giardia lamblia Not Detected Not Detected 08/04/2023 6:07 PM CDT [facility] Adenovirus F40/41 Not Detected Not Detected 08/04/2023 6:07 PM CDT [facility] Astrovirus Not Detected Not Detected 08/04/2023 6:07 PM CDT [facility] Norovirus GI/GII Not Detected Not Detected 08/04/2023 6:07 PM CDT [facility] Rotavirus A Not Detected Not Detected 08/04/2023 6:07 PM CDT [facility] Sapovirus (I, II, IV, V) Not Detected Not Detected 08/04/2023 6:07 PM CDT [facility] C. difficile Refer to separate C. difficile DNA Detection assay for results. 08/04/2023 6:07 PM CDT [facility] Stool Rectum structure / Unknown Non-blood Collection / Unknown 08/04/2023 3:24 PM CDT 08/04/2023 4:27 PM CDT [facility] - 08/04/2023 6:07 PM CDT The assay is a qualitative multiplex PCR assay to aid in the diagnosis of gastrointestinal infection through simultaneous qualitative detection and identification of multiple GI pathogens in diarrheal specimens [facility] obtained from individuals suspected of gastrointestinal infections. Testing is performed using the [employer] Gastrointestinal (GI) Panel on the [employer] System. The following organisms are identified using the [employer] GI Panel: Campylobacter spp., Plesiomonas shigelloides, Salmonella [...] verified by the microbiology laboratory at the [place] [facility] [place]. Results must be interpreted within the context of all relevant clinical and laboratory findings. Assay should not be used for monitoring response to therapy. Dany Bonilla MD MICROBIOLOGY - [facility] AL ORDERABLES [facility] Unless otherwise noted, all lab tests performed by: Division of Pathology and Laboratory Medicine [address] [place] [address] [id number] * C. difficile DNA Detection (08/04/2023 3:24 PM CDT) Only the most recent of4 resultswithin the time period is included. Pathologist [facility] C. difficile - DNA Negative Negative 08/05/2023 10:34 AM CDT [facility] C. difficile - EIA Test Not Performed Negative 08/05/2023 10:34 AM CDT [facility] C. difficile - Interpretation C. difficile DNA detection was negative making C. difficile infection highly unlikely in this patient. EIA not performed. 08/05/2023 10:34 AM CDT [facility] Stool Rectum structure / Unknown Non-blood Collection / Unknown 08/04/2023 3:24 PM CDT 08/04/2023 4:27 PM CDT Narrative [facility] - 08/05/2023 10:34 AM CDT Qualitative detection of C. difficile DNA performed using helicase-dependent amplification of a conserved region of a pathogenicity locus (PaLoc) in toxigenic C. difficile strains. It is an FDA-approved assay performed on the [employer] Instrument from [employer] and is intended for use as an [...] rapid immunoassay using the FDA-approved ImmunoCard by [employer]. Patients positive for BOTH C. difficile DNA [...] verified by the microbiology laboratory at the [facility]. Results must be interpreted within the context of all relevant clinical and laboratory findings. Dany Bonilla MD MICROBIOLOGY - SISSY GONZALES ORDERABLES [facility] Unless otherwise noted, all lab tests performed by: Division of Pathology and Laboratory Medicine [address] [place] [address] [phone] * (ABNORMAL) Procalcitonin (08/04/2023 4:19 AM CDT) Only the most recent of3 resultswithin the time period is included. Procalcitonin 0.48(H) <=0.08 ng/mL 08/04/2023 10:15 AM CDT [facility] Blood Peripheral blood specimen / Unknown Venipuncture / Unknown 08/04/2023 4:19 AM CDT 08/04/2023 5:16 AM CDT Narrative [facility] - 08/04/2023 10:15 AM CDT Procalcitonin > [...] with extended dilution as it exceeds the marketing analytics specialist's recommended limit. Caution should be exercised when interpreting such values and done in conjunction with clinical context. Dany Bonilla MD LAB BLOOD ORDERABLES [facility] Unless otherwise noted, all lab tests performed by: Division of Pathology and Laboratory Medicine [address] [place] [address] [phone] * (ABNORMAL) Hepatic Function Panel (08/04/2023 4:19 AM CDT) Only the most recent of2 resultswithin the time period is included. Pathologist [facility] Bilirubin Total <0.3 0.0 - 1.2 mg/dL 08/04/2023 11:14 AM CDT [facility] Comment: Direct and indirect bilirubin will not be reported when Total bilirubin result is <0.3 mg/dL Indocyanine Green (ICG) may cause falsely elevated bilirubin results. Total and direct bilirubin must not be measured from samples containing indocyanine green. False elevation of total bilirubin can be seen in patients with IgG concentrations above 28 g/L. Bilirubin Direct 08/04/19 11:14 AM CDT [facility] Comment: Direct and indirect bilirubin will not be reported when Total bilirubin result is <0.3 mg/dL Indocyanine Green (ICG) may cause falsely elevated bilirubin results. Total and direct bilirubin must not be measured from samples containing indocyanine green. Bilirubin Indirect 2023 11:14 AM CDT [facility] Comment:Direct and indirect bilirubin will not be reported when Total bilirubin result is <0.3 mg/dL Tot Protein 6.3(L) 6.4 - 8.3 gm/dL 08/04/2023 11:14 AM CDT [facility] Alkaline Phosphatase 93 35 - 104 U/L 08/04/2023 11:14 AM CDT [facility] Albumin Level 3.0(L) 3.5 - 5.2 gm/dL 08/04/2023 11:14 AM CDT [facility] AST 14 <=32 U/L 08/04/2023 11:14 AM CDT [facility] ALT 6 <=33 U/L 08/04/2023 11:14 AM CDT [facility] Blood Peripheral blood specimen / Unknown Venipuncture / Unknown 08/04/2023 4:19 AM CDT 08/04/2023 5:16 AM CDT Dany Bonilla MD LAB BLOOD ORDERABLES [facility] Unless otherwise noted, all lab tests performed by: Division of Pathology and Laboratory Medicine [address] [place] [address] [phone] * Respiratory Multiplex PCR Panel, Nasopharyngeal Swab (08/03/2023 11:06 AM CDT) Adenovirus Not Detected Not Detected 08/03/2023 2:43 PM CDT [facility] Coronavirus 229E Not Detected Not Detected 08/03/2023 2:43 PM CDT [facility] Coronavirus HKU1 Not Detected Not Detected 08/03/2023 2:43 PM CDT [facility] Coronavirus NL63 Not Detected Not Detected 08/03/2023 2:43 PM CDT [facility] Coronavirus OC43 Not Detected Not Detected 08/03/2023 2:43 PM CDT [facility] COVID-19 (SARS-CoV-2) Not Detected Not Detected 08/03/2023 2:43 PM CDT [facility] Human Metapneumovirus Not Detected Not Detected 08/03/2023 2:43 PM CDT [facility] Human Rhinovirus/Enterov irus Not Detected Not Detected 08/03/2023 2:43 PM CDT [facility] Influenza A Not Detected Not Detected 08/03/2023 2:43 PM CDT [facility] Influenza A H1 Not Detected Not Detected 08/03/2023 2:43 PM CDT [facility] Influenza A H1 2009 Not Detected Not Detected 08/03/2023 2:43 PM CDT [facility] Influenza A H3 Not Detected Not Detected 08/03/2023 2:43 PM CDT [facility] Influenza B Not Detected Not Detected 08/03/2023 2:43 PM CDT [facility] Parainfluenza Virus 1 Not Detected Not Detected 08/03/2023 2:43 PM CDT [facility] Parainfluenza Virus 2 Not Detected Not Detected 08/03/2023 2:43 PM CDT [facility] Parainfluenza Virus 3 Not Detected Not Detected 08/03/2023 2:43 PM CDT [facility] Parainfluenza Virus 4 Not Detected Not Detected 08/03/2023 2:43 PM CDT [facility] Respiratory Syncytial Virus Not Detected Not Detected 08/03/2023 2:43 PM CDT [facility] Bordetella parapertussis Not Detected Not Detected 08/03/2023 2:43 PM CDT [facility] Bordetella pertussis Not Detected Not Detected 08/03/2023 2:43 PM CDT [facility] Chlamydophila pneumoniae Not Detected Not Detected 08/03/2023 2:43 PM CDT [facility] Mycoplasma pneumoniae Not Detected Not Detected 08/03/2023 2:43 PM CDT [facility] Swab Nasopharyngeal structure / Unknown Non-blood Collection / Unknown 08/03/2023 11:06 AM CDT 08/03/2023 11:26 AM CDT Narrative [facility] - 08/03/2023 2:43 PM CDT The assay is a qualitative multiplex PCR assay to aid in the diagnosis of respiratory pathogens through simultaneous qualitative detection and identification of multiple pathogens directly from nasopharyngeal swabs (ASSESSMENT COUNSELOR) from individuals with respiratory symptoms. Testing is performed using the [employer] Respiratory Panel 2.1 (RP2.1) on the OPTIMIZERx System. The following organisms are identified using the [employer] RP 2.1 Panel: Adenovirus, Human Coronavirus (229E, [...] verified by the microbiology laboratory at the [facility] (CLIA Accreditation # [id number] and CAP Accreditation # [id number]). Results must be interpreted within the context of all relevant clinical and laboratory findings. Assay should not be used for monitoring response to therapy. Dany Bonilla MD MICROBIOLOGY - GENER AL ORDERABLES [facility] Unless otherwise noted, all lab tests performed by: Division of Pathology and Laboratory Medicine [address] [place] [address] [phone] * (ABNORMAL) Urinalysis with Reflex Culture (08/02/2023 5:30 PM CDT) Urine Appearance Cloudy(A) Clear 08/02/19 24 5:50 PM CDT [facility] Comment:This result was prev iously suppressed from the chart. Urine Color Yellow Colorless, Straw, Yellow, Dark Yellow, Straw-Yellow 08/02/2023 5:50 PM CDT [facility] Comment:This result was prev iously suppressed from the chart. Urine Specific [place] 1.011 1.003 - 1.035 08/02/2023 5:50 PM CDT [facility] Comment:This result was prev iously suppressed from the chart. Urine pH 6.0 5.0 - 8.0 08/02/2023 5:50 PM CDT [facility] Comment:This result was prev iously suppressed from the chart. Urine Glucose Negative Negative mg/dL 08/02/2023 5:50 PM CDT [facility] Comment:This result was prev iously suppressed from the chart. Urine Ketones 20(A) Negative mg/dL 08/02/2023 5:50 PM CDT [facility] Comment:This result was prev iously suppressed from the chart. Urine Blood Small(A) Negative 08/02/2023 5:50 PM CDT [facility] Comment:This result was prev iously suppressed from the chart. Urine Protein 30(A) Negative mg/dL 08/02/2023 5:50 PM CDT [facility] Comment:This result was prev iously suppressed from the chart. Urine Bilirubin Negative Negative 5:50 PM CDT [facility] Urine Urobilinogen Negative Negative 08/02/2023 5:50 PM CDT [facility] Urine Nitrite Negative Negative 08/02/2023 5:50 PM CDT [facility] Comment:This result was prev iously suppressed from the chart. Urine Leukocyte Esterase Large(A) Negative 08/02/2023 5:50 PM CDT [facility] Comment:This result was prev iously suppressed from the chart. Urine Mucous Not Seen Not Seen, Trace /HPF 08/02/2023 5:50 PM CDT [facility] Comment:This result was prev iously suppressed from the chart. Urine Bacteria 1+(A) Not Seen /HPF 08/02/2023 5:50 PM CDT [facility] Comment:This result was prev iously suppressed from the chart. Urine Squamous Epithelial Cells Not Seen Not Seen, OCC, Rare /HPF 08/02/2023 5:50 PM CDT [facility] Comment:This result was prev iously suppressed from the chart. Urine WBC 44(H) <=2 /HPF 08/02/2023 5:50 PM CDT [facility] Urine RBC 7(H) <=2 /HPF 08/02/2023 5:50 PM CDT [facility] Urine Voided urine specimen / Unknown Non-blood Collection / Unknown 08/02/2023 5:30 PM CDT 08/02/2023 5:36 PM CDT Narrative [facility] - 08/02/2023 5:50 PM CDT Some reporting parameters within the Urinalysis test have changed due to the implementation of new instrumentation in the Main [place], allowing greater sensitivity of measurement. Urinalysis results reported by the [facility] using existing instrumentation, as well as Urinalysis testing performed manually or by back-up methodology at the main campus, will remain relatively unchanged. New reporting parameters and units will now be reported for all campuses. Sujata Grant MD URINE ORDERABLES [facility] Unless otherwise noted, all lab tests performed by: Division of Pathology and Laboratory Medicine [address] [place] [address] [phone] * EEG (08/01/2023 8:54 PM CDT) Narrative Brooklyn Mckeon MD - 08/01/2023 8:54 PM CDT Brooklyn Mckeon MD 08/02/2023 10:42 AM EEG REPORT Patient: Zari Posadas Age: 52 y.o. Consult Service: Neuro-Oncology Consult Date: August 01, 2023 Business Broker: BROOKLYN MCKEON MD CLINICAL HISTORY This is [...] Kalpana Cannon MD NEUROLOGY ORDERABLE S * EKG, 12-Lead (Portable) (07/31/2023) Only the most recent of3 resultswithin the time period is included. Michelle Metzger MD ECG ORDERABLES [facility] * Troponin T (In-House) (07/30/2023 11:52 PM CDT) Troponin T 19 <=19 ng/L 07/31/2023 12:23 AM CDT [facility] Blood Peripheral blood specimen / Unknown Venipuncture / Unknown 07/30/2023 11:52 PM CDT 07/30/2023 11:55 PM CDT Narrative [facility] - 07/31/2023 12:23 AM CDT Reference [...] results. Shadia Clement MD LAB BLOOD ORDERABLES [facility] Unless otherwise noted, all lab tests performed by: Division of Pathology and Laboratory Medicine [address] [place] [address] [phone] * (ABNORMAL) Urinalysis Microscopic Exam (07/30/2023 11:12 PM CDT) Only the most recent of5 resultswithin the time period is included. Urine Mucous Not Seen Not Seen, Trace /HPF 07/30/2023 11:31 PM CDT [facility] Urine Bacteria Not Seen Not Seen /HPF 07/30/2023 11:31 PM CDT [facility] Urine Squamous Epithelial Cells OCC Not Seen, OCC, Rare /HPF 07/30/2023 11:31 PM CDT [facility] Urine WBC 69(H) <=2 /HPF 07/30/2023 11:31 PM CDT [facility] Urine RBC 2 <=2 /HPF 07/30/2023 11:31 PM CDT [facility] Urine Voided urine specimen / Unknown Non-blood Collection / Unknown 07/30/2023 11:12 PM CDT 07/30/2023 11:17 PM CDT Michelle Metzger MD LAB BLOOD ORDERABLES [facility] Unless otherwise noted, all lab tests performed by: Division of Pathology and Laboratory Medicine [facility] [address] * (ABNORMAL) Urinalysis w/Microscopic if Indicated (07/30/2023 11:12 PM CDT) Only the most recent of5 resultswithin the time period is included. Urine Appearance Clear Clear 07/30/19 11:29 PM CDT [facility] Urine Color Straw Colorless, Straw, Yellow, Dark Yellow, Straw-Yello w 07/30/2023 11:29 PM CDT [facility] Urine Specific [place] 1.011 1.003 - 1.035 07/30/2023 11:29 PM CDT [facility] Urine pH 6.0 5.0 - 8.0 07/30/2023 11:29 PM CDT [facility] Urine Glucose Negative Negative mg/dL 07/30/2023 11:29 PM CDT [facility] Urine Ketones Negative Negative mg/dL 07/30/2023 11:29 PM CDT [facility] Urine Blood Small(A) Negative 07/30/2023 11:29 PM CDT [facility] Urine Protein 30(A) Negative mg/dL 07/30/2023 11:29 PM CDT [facility] Urine Bilirubin Negative Negative 11:29 PM CDT [facility] Urine Urobilinogen Negative Negative 07/30/2023 11:29 PM CDT [facility] Urine Nitrite Negative Negative 07/30/2023 11:29 PM CDT [facility] Urine Leukocyte Esterase Moderate(A) Negative 07/30/2023 11:29 PM CDT [facility] Urine Voided urine specimen / Unknown Non-blood Collection / Unknown 07/30/2023 11:12 PM CDT 07/30/2023 11:17 PM CDT Narrative [facility] - 07/30/2023 11:29 PM CDT Some reporting parameters within the Urinalysis test have changed due to the implementation of new instrumentation in the [employer] [place], allowing greater sensitivity of measurement. Urinalysis results reported by the [facility] using existing instrumentation, as well as Urinalysis testing performed manually or by back-up methodology at the main [place] city, will remain relatively unchanged. New reporting parameters and units will now be reported for all ness cityes. Michelle Metzger MD URINE ORDERABLES Performing Organization Address [facility] Co de Phone Number [facility] Unless otherwise noted, all lab tests performed by: Division of Pathology and Laboratory Medicine [address] [place] [address] [phone] * (ABNORMAL) Cardiac Panel (07/30/2023 8:55 PM CDT) Pathologist [facility] Creatine Kinase 53 26 - 192 U/L 07/30/2023 9:36 PM CDT [facility] CKMB <2.0 <=5.3 ng/mL 07/30/2023 9:36 PM CDT [facility] Troponin T 22(H) <=19 ng/L 07/30/2023 9:36 PM CDT [facility] Comment: < 19 ng/L Suggest retest [...] MD LAB BLOOD ORDERABLES Performing Organization Address City/[facility]/ZIP Co de Phone Number [facility] Unless otherwise noted, all lab tests performed by: Division of Pathology and Laboratory Medicine [address] [place] [address] [phone] * (ABNORMAL) Potassium Level (07/28/2023 7:10 PM CDT) Pathologist [facility] Potassium Level 2.9(L) 3.4 - 4.5 mmol/L 07/28/2023 7:44 PM CDT [facility] Blood Peripheral blood specimen / Unknown Venipuncture / Unknown 07/28/2023 7:10 PM CDT 07/28/2023 7:13 PM CDT Narrative [facility] - 07/28/2023 7:44 PM CDT Reference range established based on adult population Tammy Archuleta PA-C LAB BLOOD ORDERABLES [facility] Unless otherwise noted, all lab tests performed by: Division of Pathology and Laboratory Medicine [address] [place] [address] [phone] * (ABNORMAL) VBG (07/27/2023 10:29 AM CDT) pH Venous 7.33 7.32 - 7.43 07/27/2023 10:36 AM CDT [facility] P CO2 Venous 40.5(L) 41.0 - 51.0 mmHg 07/27/2023 10:36 AM CDT [facility] P O2 Venous 17 mmHg 07/27/2023 10:36 AM CDT [facility] Bicarbonate Venous 21 21 - 28 mmol/L 07/27/2023 10:36 AM CDT [facility] Base Excess Venous -5(L) -2 - 3 mmol/L 07/27/2023 10:36 AM CDT [facility] Oxygen Saturation Venous 24 % 07/27/2023 10:36 AM CDT [facility] Oxygen FLOW Rate/ FiO2 07/27/2023 10:36 AM CDT [facility] O2 Therapy 07/27/2023 10:36 AM CDT [facility] Blood Peripheral blood specimen / Unknown Venipuncture / Unknown 07/27/2023 10:29 AM CDT 07/27/2023 10:34 AM CDT Tammy Archuleta PA-C LAB BLOOD ORDERABLES [facility] Unless otherwise noted, all lab tests performed by: Division of Pathology and Laboratory Medicine [address] [place] [address], [place] [address] * (ABNORMAL) Lactoferrin Detection (07/25/2023 10:28 PM CDT) Only the most recent of2 resultswithin the time period is included. Pathologist [facility] Lactoferrin - Interpretation Positive( A) Negative 07/26/2023 8:02 AM CDT [facility] Comment:Assay positive for l actoferrin indicating inflammatory cells present in fecal specimen. Recommend clinical correlation and further testing to identify cause of inflammation. Stool Rectum structure / Unknown Non-blood Collection / Unknown 07/25/2023 10:28 PM CDT 07/25/2023 11:16 PM CDT Narrative [facility] - 07/26/2023 8:02 AM CDT Testing [...] verified by the microbiology laboratory at the [facility]. Results must be interpreted within the context of all relevant clinical and laboratory findings. Tammy Archuleta PA-C MICROBIOLOGY - [facility] ORDERABLES [facility] Unless otherwise noted, all lab tests performed by: Division of Pathology and Laboratory Medicine [address] [place] [address] [phone] * (ABNORMAL) Calprotectin, Stool (07/25/2023 10:21 PM CDT) Only the most recent of2 resultswithin the time period is included. Pathologist [facility] Calprotectin [facility] 89.3(H) <50.0 (Normal) mcg/g 07/30/2023 11:40 AM CDT [facility] Comment: Interpretation: Borderline (50.0-120 mcg/g) Test Performed by: [facility] [address] [place] [id number] [place] Porter: Shad Metzger M.D. Ph.D.; IA# [id number] Stool Rectum structure / Unknown Non-blood Collection / Unknown 07/25/2023 10:21 PM CDT 07/25/2023 11:16 PM CDT Tammy Archuleta PA-C MICROBIOLOGY - GENER AL ORDERABLES [facility] * CT Chest Abdomen Pelvis with Contrast [...] - 192 U/L 07/23/2023 10:35 AM CDT [facility] Blood Peripheral blood specimen / Unknown Venipuncture / Unknown 07/23/2023 9:47 AM CDT 07/23/2023 9:47 AM CDT Dalia E Husam MEZA LAB BLOOD ORDERABL ES Performing Organization Address City/[facility] Co de Phone Number [facility] Unless otherwise noted, all lab tests performed by: Division of Pathology and Laboratory Medicine [address] [place] [address] [phone] * Hemoglobin A1c (07/05/2023 5:51 AM CDT) Pathologist [facility] Hemoglobin A1c 5.3 4.3 - 5.6 % 07/05/2023 8:26 AM CDT [facility] Blood Peripheral blood specimen / Unknown Venipuncture / Unknown 07/05/2023 5:51 AM CDT 07/05/2023 6:18 AM CDT Narrative [facility] - 07/05/2023 8:26 AM CDT HbA1c values >=6.5% are diagnostic of diabetes mellitus. Diagnosis should be confirmed by repeat testing. Therapeutic Action suggested: >8.0% HbA1c; Goal of therapy: <7.0% HbA1c Monica Dominguez APRN LAB BLOOD ORDERABLES Performing Organization Address City/[facility]/ZIP Co de Phone Number [facility] Unless otherwise noted, all lab tests performed by: Division of Pathology and Laboratory Medicine [address] [place] [address] [phone] * EEG (07/04/2023 7:57 PM CDT) Narrative Brooklyn Mckeon MD - 07/04/2023 7:57 PM CDT Brooklyn Mckeon MD 07/04/2023 8:01 PM EEG REPORT Patient: Zari Posadas Age: 52 y.o. Consult Service: Neuro-Oncology Consult Date: July 04, 2023 Business Broker: BROOKLYN MCKEON MD CLINICAL HISTORY This is 52 y.o. year-old with metastatic lung cancer to the brain. REQUESTING PHYSICIAN Dr. Kalpana Cannon TECHNIQUE Inpatient bedside study STATE Awake/Sleep MEDS [facility] FINDINGS The background is better organized on [...] seizures occurred during the recording. Saloni Man BRIDGE PAINTER,FUNERAL HOME ATTENDANT NEUROLOGY ORDERA BLES * Historical ABORh (07/03/2023 6:54 PM CDT) Pathologist [facility] ABORh A POS 07/03/2023 6:55 PM CDT [facility] Blood Peripheral blood specimen / Unknown 07/03/2023 6:54 PM CDT 07/03/2023 6:54 PM CDT Zuri Farr MD BLOOD BANK TEST DOTTIE SESAY [facility] [address] [facility] [phone] [place] [address] * Type and Screen (07/03/2023 3:34 PM CDT) ABORh A POS 07/03/2023 2:51 PM CDT [facility] ABSC Negative 07/03/2023 2:51 PM CDT [facility] Clot Expiration 07/06/2023 23:59 07/03/2023 2:51 PM CDT [facility] Historical Record Check Complete 07/03/2023 2:51 PM CDT [facility] Blood Peripheral blood specimen / Unknown Venipuncture / Unknown 07/03/2023 3:34 PM CDT 07/03/2023 6:32 PM CDT Zuri Farr MD BLOOD BANK TEST ORDE RABCODIE [facility] [address] [place] [address] [id number] [place] [address] * CKMB (07/03/2023 3:34 PM CDT) CKMB 3.9 <=5.3 ng/mL 07/03/2023 7:04 PM CDT [facility] Blood Peripheral blood specimen / Unknown Venipuncture / Unknown 07/03/2023 3:34 PM CDT 07/03/2023 6:32 PM CDT Abhijit Farr MD LAB BLOOD ORDERABLES [facility] Unless otherwise noted, all lab tests performed by: Division of Pathology and Laboratory Medicine [address] [place] [address] [phone] * (ABNORMAL) Transferrin with TIBC (06/30/2023 4:26 AM CDT) Transferrin 167(L) 200 - 360 mg/dL 06/30/2023 7:41 AM CDT [facility] Total Iron Binding Capacity 234(L) 250 - 450 mcg/dL 06/30/2023 7:41 AM CDT [facility] Blood Peripheral blood specimen / Unknown Venipuncture / Unknown 06/30/2023 4:26 AM CDT 06/30/2023 4:41 AM CDT Isma Santoyo MD LAB BLOOD ORDERABL ES Performing Organization Address City/[facility] Co de Phone Number [facility] Unless otherwise noted, all lab tests performed by: Division of Pathology and Laboratory Medicine [address] [place] [address] [phone] * Iron Level (06/30/2023 4:26 AM CDT) Iron Level 43 37 - 145 mcg/dL 06/30/2023 7:41 AM CDT [facility] Is patient fasting? 06/30/2023 7:41 AM CDT [facility] Blood Peripheral blood specimen / Unknown Venipuncture / Unknown 06/30/2023 4:26 AM CDT 06/30/2023 4:41 AM CDT Isma Santoyo MD LAB BLOOD ORDERABL ES Performing Organization Address [facility] Co de Phone Number [facility] Unless otherwise noted, all lab tests performed by: Division of Pathology and Laboratory Medicine [address] [place] [address] [phone] * Ferritin Level (06/30/2023 4:26 AM CDT) Ferritin Level 18 13 - 150 ng/mL 06/30/2023 7:41 AM CDT [facility] Blood Peripheral blood specimen / Unknown Venipuncture / Unknown 06/30/2023 4:26 AM CDT 06/30/2023 4:41 AM CDT Narrative [facility] - 06/30/2023 7:41 AM CDT Reference range established for age 17 - 60 years Isma Santoyo MD LAB BLOOD ORDERABL ES Performing Organization Address City/[facility] Co de Phone Number [facility] Unless otherwise noted, all lab tests performed by: Division of Pathology and Laboratory Medicine [address] [place] [address] [phone] * VB Lactate (06/27/2023 5:59 PM CDT) Venous Lactate 0.6 0.5 - 1.6 mmol/L 06/27/2023 6:08 PM CDT [facility] Oxygen FLOW Rate/ FiO2 06/27/2023 6:08 PM CDT [facility] O2 Therapy NONE 06/27/2023 6:08 PM CDT [facility] Blood Peripheral blood specimen / Unknown Venipuncture / Unknown 06/27/2023 5:59 PM CDT 06/27/2023 6:07 PM CDT Amanda Pearson MD LAB BLOOD ORDERABLES [facility] Unless otherwise noted, all lab tests performed by: Division of Pathology and Laboratory Medicine [address] [place] [address] [phone] * (ABNORMAL) ESR (06/27/2023 5:59 PM CDT) [facility] Sedimentation Rate 104(H) <=30 mm/hr 2023 7:27 PM CDT [facility] Blood Peripheral blood specimen / Unknown Venipuncture / Unknown 06/27/2023 5:59 PM CDT 06/27/2023 6:04 PM CDT Amanda Pearson MD LAB BLOOD ORDERABLES [facility] Unless otherwise noted, all lab tests performed by: Division of Pathology and Laboratory Medicine [address] [place] [address] [phone] * CRP (06/27/2023 5:59 PM CDT) Pathologist [facility] CRP (C Reactive Protein) 13.81 mg/L 06/27/2023 7:02 PM CDT [facility] Blood Peripheral blood specimen / Unknown Venipuncture / Unknown 06/27/2023 5:59 PM CDT 06/27/2023 6:04 PM CDT Narrative [facility] - 06/27/2023 7:02 PM CDT Adult Reference ranges for HS CRP assay are as follows: Reference ranges when used to assess cardiac risk: <1.00 mg/L Low cardiovascular risk 1.00-3.00 mg/L Average cardiovascular risk >3.00 mg/L High cardiovascular risk Reference ranges when used to assess inflammatory responses: Less than or equal to 10.00 mg/L. Amanda Pearson MD LAB BLOOD ORDERABLES [facility] Unless otherwise noted, all lab tests performed by: Division of Pathology and Laboratory Medicine [facility] [place] [address] * (ABNORMAL) Lipid panel (04/18/2023 2:50 PM [facility]) Cholesterol Total 276(H) <=199 mg/dL 04/18/2023 4:02 PM [facility] Comment: ATP III Classification of Total Cholesterol - Primary Target of Therapy (in mg/dL): <200 Desirable 200-239 Borderline high >=240 High Triglyceride 99 <=149 mg/dL 04/18/2023 4:02 PM [facility] Comment: ATP III Classification of Serum Triglycerides Primary Target of Therapy (in mg/dL): <150 Normal 150-199 Borderline high 200-499 High >=500 Very high Non-fasting triglycerides >200 mg/dL may be followed up with a fasting Lipid Panel. Calculated LDL-C may be falsely decreased when non-fasting triglycerides >200 mg/dL. HDL Cholesterol 95 >=40 mg/dL 04/18/2023 4:02 PM [facility] LDL Cholesterol 161(H) <=100 mg/dL 04/18/2023 4:02 PM [facility] Comment: ATP III Classification of LDL Cholesterol Primary Target of Therapy (in mg/dL): <100 Optimal 100-129 Near optimal/above optimal 130-159 Borderline high 160-189 High >=190 Very high Very Low Density Lipoprotein 20 mg/dL 04/18/2023 4:02 PM [facility] Is patient fasting? No 04/18/2023 4:02 PM [facility] Comment:last meal longer ray n than 4 hrs prior Blood Peripheral blood specimen / Unknown Venipuncture / Unknown 04/18/2023 2:50 PM [facility] 04/18/2023 2:52 PM [facility] Sindi Casiano MD LAB BLOOD ORDERABLES [facility] Unless otherwise noted, all lab tests performed by: Division of Pathology and Laboratory Medicine [address] [place] [phone] [facility] Unless otherwise noted, all lab tests performed by: Division of Pathology and Laboratory Medicine [address] [place] [address] [phone] * (ABNORMAL) POC Creatinine (04/16/2023 4:39 PM [facility]) Only the most recent of2 resultswithin the time period is included. POC Creatinine 1.2 0.6 - 1.3 mg/dL 04/16/2023 4:41 PM [facility] Comment:Medications, especia lly hydroxyurea or supplements, such as ascorbate, can interfere with test results causing a falsely and significantly higher result than expected. If a problem is suspected with a patient's result, a sample should be sent to the laboratory for confirmatory testing. POC eGFR 55(L) >=60 mL/min/1.7 3 sq. m 04/16/2023 4:41 PM [facility] Comment: The eGFRcr is calculated with [...] criteria for CKD. Blood 04/16/2023 4:39 PM [facility] 04/16/2023 4:41 PM [facility] Narrative [facility] - 04/16/2023 4:41 PM [facility] Method description: The i-STAT is an analyzer [...] Dalia Weiner SUSANA POCT ORDERABLES - DEVICE [facility] Unless otherwise noted, all lab tests performed by: Division of Pathology and Laboratory Medicine [address] [place] [id number] * MRI Brain with and without Contrast - Frameless Gamma Knife (04/09/2023 8:55 AM [facility]) Anatomical Region Laterality Modality Head Magnetic Resonan ce 04/09/2023 10:1 7 AM [facility] Impressions 04/09/2023 10:38 AM [facility] No new metastasis or leptomeningeal disease. Several lesions demonstrate interval progression with stability of many other enhancing lesions. ACTIONABLE ITEMS/RECOMMENDATIONS: None. Narrative 04/09/2023 10:38 AM [facility] FULL RESULT: Examination: MRI BRAIN WITH AND [...] lesions. ACTIONABLE ITEMS/RECOMMENDATIONS: None. Saira Carrasquillo APRN [facility] ORDERABLES * MRI Brain with and without Contrast - ABTI (02/14/2023 11:23 AM [facility]) Anatomical Region Laterality Modality Head Magnetic Resonan ce 02/17/2023 3:26 PM [facility] Impressions 02/17/2023 3:53 PM [facility] 1. 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 2. Left perfusion abnormalities expected for the relatively growing and enhancing right periatrial enhancing lesion, to be followed for active metastasis. 3. Other small enhancing lesions are stable. ACTIONABLE ITEMS/RECOMMENDATIONS: None. Narrative 02/17/2023 3:53 PM [facility] FULL RESULT: Examination: MRI BRAIN W WO [...] included. Creatinine 1.38(H) 0.51 - 0.95 mg/dL [facility] Blood 11/29/2022 10:3 4 AM CDT 11/29/2022 10:48 AM CDT Dalia Weiner APRN LAB BLOOD ORDERABL ES [facility] Unless otherwise noted, all lab tests performed by: Division of Pathology and Laboratory Medicine [address] [place] [phone] * (ABNORMAL) Glomerular Filtration Rate (11/29/2022 10:34 AM CDT) Only the most recent of2 resultswithin the time period is included. eGFR 46(L) >=60 mL/min/1.7 3 sq. m [facility] Comment: The eGFRcr is calculated with [...] LAB BLOOD ORDERABL ES Performing Organization Address City/[facility]/ZIP Co de Phone Number [facility] Unless otherwise noted, all lab tests performed by: Division of Pathology and Laboratory Medicine [address] [place] [phone] * BUN (11/29/2022 10:34 AM CDT) Only the most recent of2 resultswithin the time period is included. BUN 13 6 - 23 mg/dL [facility] Blood 11/29/2022 10:3 4 AM CDT 11/29/2022 10:48 AM CDT Dalia Weiner APRN LAB BLOOD ORDERABL ES Performing Organization Address [facility] Co de Phone Number [facility] Unless otherwise noted, all lab tests performed by: Division of Pathology and Laboratory Medicine [address] [place] [address] [phone] * ALT (11/29/2022 10:34 AM CDT) Only the most recent of2 resultswithin the time period is included. ALT 7 <=33 U/L [facility] Blood 11/29/2022 10:3 4 AM CDT 11/29/2022 10:48 AM CDT Dalia Weiner APRN LAB BLOOD ORDERABL ES Performing Organization Address [facility] de Phone Number [facility] Unless otherwise noted, all lab tests performed by: Division of Pathology and Laboratory Medicine [address] [place] [address] [phone] * Aspartate Aminotransferase (11/29/2022 10:34 AM CDT) Only the most recent of2 resultswithin the time period is included. AST 15 <=32 U/L [facility] Blood 11/29/2022 10:3 4 AM CDT 11/29/2022 10:48 AM CDT Dalia E Husam MEZA LAB BLOOD ORDERABL ES Performing Organization Address [facility] de Phone Number [facility] Unless otherwise noted, all lab tests performed by: Division of Pathology and Laboratory Medicine [address] [place] [address] [phone] * Total Protein (11/29/2022 10:34 AM CDT) Only the most recent of2 resultswithin the time period is included. Total Protein 6.8 6.4 - 8.3 g/dL [facility] Blood 11/29/2022 10:3 4 AM CDT 11/29/2022 10:48 AM CDT Dalia E Husam DUMONTN LAB BLOOD ORDERABL ES Performing Organization Address [facility] de Phone Number [facility] Unless otherwise noted, all lab tests performed by: Division of Pathology and Laboratory Medicine [address] [place] [address] [phone] * Alkaline Phosphatase (11/29/2022 10:34 AM CDT) Only the most recent of2 resultswithin the time period is included. Alk Phos 76 35 - 104 U/L [facility] Blood 11/29/2022 10:3 4 AM CDT 11/29/2022 10:48 AM CDT Dalia E Husam DUMONTN LAB BLOOD ORDERABL ES Performing Organization Address [facility] Co de Phone Number [facility] Unless otherwise noted, all lab tests performed by: Division of Pathology and Laboratory Medicine [address] [place] [address] [phone] * (ABNORMAL) Glucose Level (11/29/2022 10:34 AM CDT) Only the most recent of2 resultswithin the time period is included. Glucose Level 61(L) 70 - 99 mg/dL [facility] Comment: Effective 10/13/15, the glucose reference intervals have been updated based on [place] [employer] guidelines (Standards of Medical Care [...] LAB BLOOD ORDERABL ES Performing Organization Address [facility] de Phone Number [facility] Unless otherwise noted, all lab tests performed by: Division of Pathology and Laboratory Medicine [address] [place] [address] [phone] * Calcium Level (11/29/2022 10:34 AM CDT) Only the most recent of2 resultswithin the time period is included. Calcium Lvl 9.2 8.4 - 10.2 mg/dL [facility] Blood 11/29/2022 10:3 4 AM CDT 11/29/2022 10:48 AM CDT Dalia Weiner APRN LAB BLOOD ORDERABL ES Performing Organization Address [facility] Co de Phone Number [facility] Unless otherwise noted, all lab tests performed by: Division of Pathology and Laboratory Medicine [address] [place] [address] [phone] * Albumin Level (11/29/2022 10:34 AM CDT) Only the most recent of2 resultswithin the time period is included. Albumin Lvl 4.1 3.5 - 5.2 gm/dL [facility] Blood 11/29/2022 10:3 4 AM CDT 11/29/2022 10:48 AM CDT Dalia Weiner APRN LAB BLOOD ORDERABL ES Performing Organization Address [facility] de Phone Number [facility] Unless otherwise noted, all lab tests performed by: Division of Pathology and Laboratory Medicine [address] [place] [address] [phone] * (ABNORMAL) Electrolyte Panel (11/29/2022 10:34 AM CDT) Only the most recent of2 resultswithin the time period is included. Sodium Lvl 140 136 - 145 mEq/L [facility] Potassium Lvl 3.6 3.5 - 5.1 mEq/L [facility] Chloride 108(H) 98 - 107 mEq/L [facility] CO2 24 22 - 29 mEq/L [facility] Anion Gap 8 4 - 14 mEq/L [facility] Blood 11/29/2022 10:3 4 AM CDT 11/29/2022 10:48 AM CDT Dalia Weiner APRN LAB BLOOD ORDERABL ES Performing Organization Address City/[facility] Co de Phone Number [facility] Unless otherwise noted, all lab tests performed by: Division of Pathology and Laboratory Medicine [address] [place] [phone] after 10/21/2022 Advance Directives Documents on File Type Date Recorded Patient Book Illustrator Expl anation Advance Directives: Medical Power of Gre Instructor 06/28/2023 Medical Power of Att orney * Full Code (Latest Code Status on File) Date Activated Date Inactivated Comments 10/01/2023 3:48 PM 10/08/2023 7:09 PM * Full Code Date Activated Date Inactivated Comments 07/31/2023 12:34 AM 08/11/2023 4:16 PM * Full Code Date Activated Date Inactivated Comments 07/24/2023 11:49 PM 07/29/2023 7:11 PM * Full Code Date Activated Date Inactivated Comments 07/03/2023 7:36 PM 07/07/2023 8:52 PM * Full Code Date Activated Date Inactivated Comments 06/27/2023 8:52 PM 07/01/2023 8:33 PM Care Teams Tradeshow Worker Relationship Specialty Start Date End Date Luisana Lucio MD [address] [place] [address] [phone] [email or web address] PCP - External Primary Care Provider Obstetrics/Gynecology 07/17/16 Roseann Jensen MD [address] [place] [phone] [email or web address] PCP - External Referring Otolaryngology 07/19/16 Sindi Casiano MD [address] [place] [address] [phone] [email or web address] PCP - General Thoracic Medicine 11/24/20 Ajith Fink MD [address] [place] [address] [phone] [email or web address] Consulting Physician Nephrology 08/12/21 Annette Kang MD [address] [place] [address] [phone] [email or web address] Consulting Physician Gastroenterology, Hepatology and Nutrition 12/03/20 Frannie Emery MD [address] [place] [address] [phone] [email or web address] Consulting Physician Neurosurgery 05/21/23 Rajinder English APRN [address] [place] [address] [phone] [email or web address] Nurse Practitioner Neurosurgery 05/21/23
[2023-10-21 23:00] LABS: Absolute Eosinophils 0.1 K/uL (0-0.5); Absolute Lymphocytes (CBC) 1.2 K/uL (0.7-4.9); Absolute Monocytes 0.5 K/uL (0.1-1.3); Absolute Neutrophil 3.5 K/uL (1.8-8.0); Basophils % 0.5 % (0-1.3); Eosinophils % 1.9 % (0-4.4); Hematocrit 34.9 % (36.0-45.0); Hemoglobin 11.5 g/dL (12.0-15.0); Lymphocytes % 21.9 % (15.3-44.8); MCH 30.3 pg (27.0-35.0); MCV 91.7 fL (80-100); Monocytes % 9.3 % (3.3-12.3); Neutrophils % 66.4 % (41.7-73.7); Nucleated Red Blood Cells % 0.2 % (0-0); Platelets 291 thou/uL (152-406); RBC Red Blood Cell Count 3.81 M/uL (3.86-4.86); Red Cell Distribution Width 16.1 % (12.1-15.2)
[2023-10-21 23:14] LABS: PT Prothrombin Time 12.5 SECONDS (9.4-12.5); Protime INR 1.12
[2023-10-21 23:31] LABS: Albumin 3.1 g/dL (3.4-5.0); Albumin/Globulin Ratio 0.7 (1.1-1.8); Anion Gap 6.1 mEq/L (5.0-15.0); Bilirubin Direct 0.2 mg/dL (0-0.2); Bilirubin Indirect, Calculated 0.3 mg/dL (0.2-0.8); Bilirubin Total 0.5 mg/dL (0.2-1.0); Globulin 4.2 g/dL (2.3-3.5); Magnesium 2.3 mg/dL (1.6-2.4); Potassium 4.1 mEq/L (3.5-5.1); Protein, Total 7.3 g/dL (6.4-8.2); Troponin High Sensitivity 4.4 pg/mL (<58.9)
--- NOTE | 2023-10-22 01:22 | RAD REPORT ---
EXAM DESCRIPTION: CT - Head Brain Wo Cont - 10/21/2023 10:14 pm CLINICAL HISTORY: CONFUSED COMPARISON: Head Brain Wo Cont dated 01/30/2020; HEAD BRAIN W O CONTRAST dated 05/20/2014; Chest Singl e View dated 10/21/2023; Head C Spine Cap Wo Con dated 08/13/2023 TECHNIQUE: Noncontrast head CT images were obtained without IV contrast. Multiplanar reformats were generated and reviewed. All CT scans are performed using dose optimization technique as appropriate and may include automated exposure control or mA/KV adjustment according to patient size. FINDINGS: Sequelae of left frontotemporal craniotomy and resection in the anterior left temporal lob e are again seen, with stable left temporal cystic encephalomalacia and focal calcification at the po sterior margin of the resection cavity. A right parietal 8 mm epidural hypodense collection near the vertex is stable. No intracranial hemorrhage, mass, or edema. Midline structures are unremarkable. Normal ventricular caliber for age. Increased white matter hypodensity with some mass effect in the right anterior temporal and right ant erior frontal region, allowing for differences in technique. The alonzo-white matter differentiation is relatively preserved. Mastoid air cells and visualized portions of the paranasal sinuses are clear. No acute bony findings. IMPRESSION: No evidence of an acute intracranial hemorrhage or acute territorial infarct. Increased white matter hypodensity with some mass effect in the right anterior temporal and right ant erior frontal lobes, could represent ongoing vasogenic edema. Given the patient's history, additional evaluation by MRI of the brain with contrast is recommended to evaluate for new/progressive metastat ic disease.
[2023-10-22] MEDS ORDERED: FLUCONAZOLE 100 MG TAB ONE (01:24)
[2023-10-22 01:25] LABS: Specific Gravity 1.019 (1.005-1.030); Sqamous Epithelial <5 /HPF (None Seen); Urine Bacteria None Seen /HPF (<20); Urine Bilirubin NEGATIVE (Negative); Urine Blood Negative (Negative); Urine Clarity Clear (Clear); Urine Color Light-Yellow (Yellow); Urine Culture Reflex Order NOT NEEDED; Urine Glucose NEGATIVE (Negative); Urine Ketones TRACE (Negative); Urine Micro Reflex YN NO BILL MICROSCOPIC; Urine Mucus Slight /HPF (None Seen); Urine Nitrite NEGATIVE (Negative); Urine Protein NEGATIVE (Negative); Urine RBC None Seen /HPF (None Seen); Urine Urobilinogen Normal (Normal); Urine WBC <5 /HPF (<5); Urine pH 5.5 (5.0-7.0)
--- NOTE | 2023-10-22 01:53 | EDPHYS ---
Physician Documentation [facility] Name: Zari Posadas Age: 52 yrs Sex: Female : 1970 Arrival Date: 10/21/2023 Time: 21:40 Bed 3 Private MD: ED Physician Tyson Awad HPI: 10/20 23:22 This 52 yrs old Female presents to ER via EMS with complaints of AMS. 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 Patient was reported to have some confusion at home and was resisting attempts to clean her. No signs of confusion, she knows where she is and she has mostly complained of groin and gluteal crease rash. . Historical: - Allergies: 10/20 21:49 ambien; jm12 - PMHx: 21:49 brain cancer (Lung Cancer); Lung Cancer; jm12 - Immunization history:: Adult Immunizations up to date. - Infectious Disease History:: Denies. - Social history:: Smoking status: Patient denies any tobacco usage or history of. - Family history:: not pertinent. ROS: 10/21 01:22 Constitutional: Negative for fever, chills, and weight loss, report of confusion, sp4 positive groin and buttock rash. All other systems are negative, Exam: 01:22 Constitutional: This is a well developed, well nourished patient who is awake, alert, sp4 and in no acute distress. Appears To be physically debilitated Head/Face: Normocephalic, atraumatic. Eyes: Pupils equal round and reactive to light, extra-ocular motions intact. Lids and lashes normal. Conjunctiva and sclera are not injected. Cornea within normal limits. Periorbital areas with no swelling, redness, or edema. ENT: Nares patent. No nasal discharge, no septal abnormalities noted. Tympanic membranes are normal and external auditory canals are clear. Oropharynx with no redness, swelling, or masses, exudates, or evidence of obstruction, uvula midline. Mucous membranes moist. Neck: Trachea midline, no thyromegaly or masses palpated, and no cervical lymphadenopathy. Supple, full range of motion without nuchal rigidity, or vertebral point tenderness. Chest/axilla: Normal chest wall appearance and motion. Nontender with no deformity. No lesions are appreciated. Cardiovascular: Regular rate and rhythm with a normal S1 and S2. No gallops, murmurs, or rubs. Normal PMI, no JVD. No pulse deficits. Respiratory: Lungs have equal breath sounds bilaterally, clear to auscultation and percussion. No rales, rhonchi or wheezes noted. No increased work of breathing, no retractions or nasal flaring. Abdomen/GI: Soft, with normal bowel sounds. No distension or tympany. No guarding or rebound. No evidence of tenderness throughout. Back: No spinal tenderness. No costovertebral tenderness. Female : Moderate to severe tinea cruris including gluteal cleft, perianal area groin and labial area Skin: Warm, dry with normal turgor. Normal color with no rashes, no lesions, and no evidence of cellulitis. MS/ Extremity: Pulses equal, no cyanosis. Neurovascular intact. Full, normal range of motion. Neuro: Awake and alert, GCS 15, oriented to person, place, time, and situation. Cranial nerves II-XII grossly intact. Motor strength 5/5 in all extremities. Sensory grossly intact. Psych: Awake, alert, with orientation to person, place and time. Behavior, mood, and affect are within normal limits Vital Signs: 10/20 21:45 BP 110 / 62; Pulse 68; Resp 16; Temp 98.2; Pulse Ox 100% ; Weight 77.11 kg; Pain 1/10; [facility] 23:48 BP 95 / 54; Pulse 80; Resp 14; Pulse Ox 100% ; [facility] 10/21 00:55 Pulse 84; Pulse Ox 100% ; Pain 4/10; 12 10/20 21:45 Pain Scale: Adult [facility] 10/21 00:55 Pain Scale: Adult [facility] Adrian Coma Score: 01:22 Eye Response: spontaneous(4). Motor Response: obeys commands(6). Verbal Response: sp4 oriented(5). Total: 15. MDM: 10/20 21:49 Patient medically screened. sp4 23:22 ED course: EXAM DESCRIPTION: CT HEAD WITHOUT IV CONTRAST 10/21/2023 11:00 PM CDT CLINICAL sp4 HISTORY: 52 years, Female, Confused. COMPARISON: CT Head Cervical Spine 08/14/2023. FINDINGS: Multiple transaxial tomograms of the brain were obtained from the base of the skull to the vertex without contrast. An individualized dose optimization technique, Automated Exposure Control, was utilized for the performed procedure. Brain: Increased hypodensity within the right frontal lobe corresponding perhaps to a subtotal subacute/chronic infarct right MCA distribution. Again there is a right hypoplastic/hypodense within subdural hemorrhage, similar to prior study. No definitive acute component is identified. 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 No focal areas of hypodensities Ventricles: Lateral ventricles and cisterns displace normal appearance. Vasculature: No visualized abnormalities in the arteries or dural venous sinuses. Scalp/skull: The calvarium demonstrate status post left temporal craniotomy. The rest of the skull is to be intact with no evidence for acute bony injuries. Sinuses: The visualized paranasal sinuses and mastoid air cells demonstrate to be clear. Orbits: No significant abnormalities in the visualized orbital structures. IMPRESSION: Increased hypodensity within the right frontal lobe corresponding perhaps to a subtotal subacute/chronic infarct right MCA distribution. Again there is a right hypoplastic/hypodense within subdural hemorrhage, not significantly changed in comparison. No definitive acute component is identified. 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 Electronically signed by: Pranav Shipley MD 10/21/2023 11:11 PM. ED course: EXAM DESCRIPTION: X-ray single view chest. CLINICAL HISTORY: 52 years Female, lethargy COMPARISON: Prior chest x-ray report from 07/09/2020. The image was not available for review. TECHNIQUE: Single portable x-ray view of the chest performed on 10/21/2023 at 10:02 PM FINDINGS: The lungs are well expanded and are clear. There is no evidence of a pneumothorax. The cardiac silhouette is normal in size and configuration. The mediastinal contours are normal. No acute osseous abnormality is identified. No focal soft tissue abnormalities are seen. Lines and tubes: None. Free air: None identified, IMPRESSION: No evidence of acute intrathoracic disease. Electronically signed by: Veronica Gu DO 10/21/2023. 10/21 01:22 ED course: EXAM DESCRIPTION: X-ray single view chest. CLINICAL HISTORY: 52 years sp4 Female, lethargy COMPARISON: Prior chest x-ray report from 07/09/2020. The image was not available for review. TECHNIQUE: Single portable x-ray view of the chest performed on 10/21/2023 at 10:02 PM FINDINGS: The lungs are well expanded and are clear. There is no evidence of a pneumothorax. The cardiac silhouette is normal in size and configuration. The mediastinal contours are normal. No acute osseous abnormality is identified. No focal soft tissue abnormalities are seen. Lines and tubes: None. Free air: None identified, IMPRESSION: No evidence of acute intrathoracic disease. . 01:26 Differential Diagnosis altered mental status, sepsis, flu, Metastatic cancer to the sp4 brain. Data reviewed: vital signs, nurses notes, EMS record, old medical records, lab test result(s), EKG, radiologic studies, CT scan, plain films. Consideration of Admission/Observation Escalation of care including admission/observation considered. ED course: Remains lucid without signs of mental impairment, chemistry panel is unremarkable, CBC reveals hemoglobin 11.5 otherwise unremarkable, liver function panel negative, troponin negative EKG normal CT does not have signs of acute problems except chronic appearing increased hypodensity in the right frontal lobe corresponding to the subacute or chronic infarct of the right MCA. Eyes follow-up with [facility]. . 10/20 21:47 Order name: Basic Metabolic Panel; Complete [facility]: [facility] 10/20 21:47 Order name: CBC with Diff; Complete Time: 23:22 4 10/20 21:47 Order name: LFT's; Complete Time: : 4 10/20 21:47 Order name: Magnesium; Complete Time: : 4 10/20 21:47 Order name: NT PRO-BNP; Complete Time: : 4 10/20 21:47 Order name: PT-INR; Complete Time: 23:22 4 10/20 21:47 Order name: Troponin HS; Complete Time: 01:16 4 10/20 21:48 Order name: Urinalysis W/Microscopic; Complete Time: 01:52 4 10/20 21:47 Order name: XRAY [facility] ([facility] view[facility] 10/20 21:47 Order name: CT Head Brain wo Cont; Complete Time: 01:52 sp4 10/20 21:47 Order name: EKG; Complete Time: 21:47 sp4 10/20 21:47 Order name: Cardiac monitoring; Complete Time: 00:16 sp4 10/20 21:47 Order name: EKG - Nurse/Tech; Complete Time: 23:29 sp4 10/20 21:47 Order name: IV Saline Lock; Complete Time: 22:52 sp4 10/20 21:47 Order name: Labs collected and sent; Complete Time: 22:52 sp4 10/20 21:47 Order name: O2 Per Protocol; Complete Time: 21:53 sp4 10/20 21:47 Order name: O2 Sat Monitoring; Complete Time: 21:53 sp4 10/20 21:48 Order name: Cath; Complete Time: 00:42 sp4 10/20 21:48 Order name: Misc. Order: Straight cath for Urinalysis ; Complete Time: 00:42 sp4 Administered Medications: 01:29 Drug: Fluconazole PO 200 mg PO once Route: PO; jm12 Disposition Summary: 10/22/23 01:53 Discharge Ordered Notes: Location: Home sp4 Problem: new sp4 Symptoms: have improved sp4 Condition: Stable sp4 Diagnosis - Dermatitis, unspecified sp4 - Acute fungal intertriginous rash, bacterial superinfection of the fungal rash, sp4 acute tinea cruris Followup: sp4 - With: Private Physician - When: 7 - 10 days - Reason: Recheck today's complaints Discharge Instructions: - Discharge Summary Sheet sp4 - [place] Itch, [id number] sp4 Forms: - Patient Portal Instructions sp4 Prescriptions: - Fluconazole 200 mg Oral tablet - take 1 tablet ORAL route once daily for 10 days; 10 tablet; Refills: 0, Product sp4 Selection Permitted - Nystatin-Triamcinolone 100,000-0.1 unit/g-% Topical cream - apply 1 application TOPICAL route 2 times per day for 14 days Apply to groin sp4 dermatitis; 30 gram; Refills: 0, Product Selection Permitted - Bactrim DS 800-160 mg Oral Tablet - take 1 tablet ORAL route every 12 hours for 10 days; 20 tablet; Refills: 0, sp4 Product Selection Permitted Signatures: Dispatcher [employer] Bambi Torres, RN RN jw7 Tyson Awad MD MD sp4 Lisette Bautista RN RN jm12 Corrections: (The following items were deleted from the chart) 10/20 21:47 21:47 Head Brain Wo Cont+CT.RAD.BRZ ordered. EDMS EDMS
--- NOTE | 2023-10-22 01:53 | ER ---
Nurse's Notes [facility] Name: Zari Posadas Age: 52 yrs Sex: Female : 1970 Arrival Date: 10/21/2023 Time: 21:40 Bed 3 Private MD: Diagnosis: Dermatitis, unspecified;Acute fungal intertriginous rash, bacterial superinfection of the fungal rash, acute tinea cruris Presentation: 10/20 21:45 Chief complaint: Patient states: AMS and leg pain. Coronavirus screen: At this time, [facility] the client does not indicate any symptoms associated with coronavirus-19. Ebola Screen: No symptoms or risks identified at this time. Initial Sepsis Screen: Does the patient meet any 2 criteria? No. Patient's initial sepsis screen is negative. Does the patient have a suspected source of infection? No. Patient's initial sepsis screen is negative. Risk Assessment: Do you want to hurt yourself or someone else? Patient reports no desire to harm self or others. Onset of symptoms. 21:45 Method Of Arrival: EMS: [facility] 21:45 Acuity: TYSHAWN 3 [facility] Triage Assessment: 21:50 General: Behavior is cooperative. jw7 Historical: - Allergies: 21:49 ambien; jm12 - PMHx: 21:49 brain cancer (Lung Cancer); Lung Cancer; jm12 - Immunization history:: Adult Immunizations up to date. - Infectious Disease History:: Denies. - Social history:: Smoking status: Patient denies any tobacco usage or history of. - Family history:: not pertinent. Screenin:50 [facility] ED Fall Risk Assessment (Adult) History of falling in the last 3 months, jw7 including since admission No falls in past 3 months (0 pts) Confusion or Disorientation Yes (5 pts) Intoxicated or Sedated No (0 pts) Impaired Gait Yes (1 pt) Mobility Assist Device Used No (0 pt) Altered Elimination Yes (1 pt) Score/Fall Risk Level 3 or more points = High Risk Oriented to surroundings, Maintained a safe environment, Educated pt \T\ family on fall prevention, incl call for assistance when getting out of bed, Assessed \T\ reinforced patient's understanding of fall precautions, Provided non-skid footwear, Hourly rounding (assess needs \T\ fall precautionary measures) done. Abuse screen: Denies threats or abuse. Denies injuries from another. Nutritional screening: No deficits noted. Tuberculosis screening: No symptoms or risk factors identified. Assessment: 21:51 General: Appears. Neuro: No deficits noted. Cardiovascular: No deficits noted. jm Respiratory: No deficits noted. GI: No deficits noted. No signs and/or symptoms were reported involving the gastrointestinal system. : No deficits noted. No signs and/or symptoms were reported regarding the genitourinary system. EENT: No deficits noted. No signs and/or symptoms were reported regarding the EENT system. Derm: Reports redness. 10/21 00:57 Reassessment: Patient appears in no apparent distress at this time. No changes from [facility] previously documented assessment. Vital Signs: 10/20 21:45 BP 110 / 62; Pulse 68; Resp 16; Temp 98.2; Pulse Ox 100% ; Weight 77.11 kg; Pain 1/10; [facility] 23:48 BP 95 / 54; Pulse 80; Resp 14; Pulse Ox 100% ; [facility] 10/21 00:55 Pulse 84; Pulse Ox 100% ; Pain 4/10; [facility] 10/20 21:45 Pain Scale: Adult [facility] 10/21 00:55 Pain Scale: Adult [facility] Adrian Coma Score: 01:22 Eye Response: spontaneous(4). Motor Response: obeys commands(6). Verbal Response: sp4 oriented(5). Total: 15. ED Course: 10/20 21:44 Patient arrived in ED. sb4 21:46 Tyson Awad MD is Attending Physician. sp4 21:48 Triage completed. jm12 21:50 Arm band placed on right wrist. jm12 21:50 Patient has correct armband on for positive identification. Bed in low position. Call jw7 light in reach. Side rails up X2. Provided Education on: use of call light. 22:13 XRAY Chest (1 view) In Process Unspecified. EDMS 22:15 CT Head Brain wo Cont In Process Unspecified. EDMS 22:52 Initial lab(s) drawn, by me, sent to lab. Inserted saline lock: 22 gauge in right jw7 antecubital area, using aseptic technique. Blood collected. Flushed with 10 mL NS. 10/21 00:55 Urinalysis W/Microscopic Sent. jm12 00:56 Patient tolerated well. jm12 01:58 Patient called family and updated them they will come pick pt up. jm12 02:31 IV discontinued, intact, bleeding controlled, No redness/swelling at site. Pressure jm12 dressing applied. Administered Medications: 01:29 Drug: Fluconazole PO 200 mg PO once Route: PO; jm12 Outcome: 01:53 Discharge ordered by . sp4 02:32 Discharged to home via wheelchair, jm12 02:32 Condition: stable 02:32 Discharge instructions given to patient, family, Instructed on discharge instructions, follow up and referral plans. medication usage, Demonstrated understanding of instructions, follow-up care, medications, Prescriptions given X 4, 02:34 Patient left the ED. jm12 Signatures: Dispatcher [employer] EDMS Bambi Rees RN RN Cate Brown, PA-C PA-C [email or web address] Tyson Awad MD MD sp4 Lisette Bautista RN RN jm12
[2023-10-22 06:27] VITALS: TEMP 98.2; O2SAT 100
[2023-10-22 06:33] VITALS: BP 95/54
--- NOTE | 2023-10-22 13:35 | RAD REPORT ---
EXAM DESCRIPTION: RAD - Chest Single View - 10/21/2023 10:12 pm CLINICAL HISTORY: 52 years Female, lethargy COMPARISON: Prior chest x-ray report from 07/09/2020. The image was not available for review. TECHNIQUE: Single portable x-ray view of the chest performed on 10/21/2023 at 10:02 PM FINDINGS: The lungs are well expanded and are clear. There is no evidence of a pneumothorax. The cardiac silhouette is normal in size and configuration. The mediastinal contours are normal. No acute osseous abnormality is identified. No focal soft tissue abnormalities are seen. Lines and tubes: None. Free air: None identified, IMPRESSION: No evidence of acute intrathoracic disease. Electronically signed by: Veronica Gu DO 10/21/2023 11:12 PM CDT Due to temporary technical issues with the PACS/Fluency reporting system, reports are being signed by the in house radiologist without review as a courtesy to ensure prompt reporting. The interpreting r adiologist is fully responsible for the content of the report.
--- NOTE | 2023-10-22 16:57 | EKG ---
Test Date: 2023-10-21 Test Time: 23:02:55 [employer]rain [employer]outer: YAQUELIN MEASUREMENT RESULTS: Intervals: Rate: 77 ID: [id number] QRSD: 88 QT: 398 QTc: 450 [place]: P: 29 ID: [id number] QRS: 2 T: 55 INTERPRETIVE STATEMENTS: Normal sinus rhythm Normal ECG Compared to ECG 08/13/2023 19:36:06 No significant changes Electronically Signed On 10-22-23 16:56:38 CDT by Marshal Mendoza
== END 2023-10-22 02:34 | disposition home or self-care (01) ==
LOC: ER 21:40
DX: B35.6 Tinea cruris (principal); L30.4 Erythema intertrigo; B36.9 Superficial mycosis, unspecified
CPT/HCPCS: 36415; 70450; 71045; 80048; 80076; 81001; 83735; 83880; 84484; 85025; 85610; 93005; 99284

== ENCOUNTER 2023-11-01 22:59 | Emergency (ER) | payer OTHER ==
[2023-11-02 00:03] LABS: Absolute Eosinophils 0.1 K/uL (0-0.5); Absolute Lymphocytes (CBC) 1.1 K/uL (0.7-4.9); Absolute Monocytes 0.3 K/uL (0.1-1.3); Absolute Neutrophil 3.8 K/uL (1.8-8.0); Basophils % 0.9 % (0-1.3); Eosinophils % 1.9 % (0-4.4); Hemoglobin 11.8 g/dL (12.0-15.0); Lymphocytes % 20.5 % (15.3-44.8); MCH 29.9 pg (27.0-35.0); MCHC 32.6 g/dL (32.0-36.0); MCV 91.7 fL (80-100); MPV 7.3 fL (7.6-11.3); Monocytes % 5.5 % (3.3-12.3); Neutrophils % 71.2 % (41.7-73.7); Nucleated Red Blood Cells % 0.1 % (0-0); PT Prothrombin Time 12.5 SECONDS (9.4-12.5); Platelets 352 thou/uL (152-406); Protime INR 1.12; RBC Red Blood Cell Count 3.93 M/uL (3.86-4.86); Red Cell Distribution Width 15.2 % (12.1-15.2)
[2023-11-02 00:21] LABS: Anion Gap 9.6 mEq/L (5.0-15.0); Magnesium 2.3 mg/dL (1.6-2.4); Potassium 4.6 mEq/L (3.5-5.1); Troponin High Sensitivity 4.4 pg/mL (<58.9)
[2023-11-02 00:27] LABS: D-Dimer 0.679 FEUug/mL (0-0.500)
--- NOTE | 2023-11-02 03:22 | ER ---
Nurse's Notes [facility] Name: Zari Posadas Age: 52 yrs Sex: Female : 1970 Arrival Date: 11/01/2023 Time: 22:59 Bed 16 Private MD: Diagnosis: Fall on same level, unspecified;Acute fall at home, acute head injury Presentation: 10/31 23:05 Chief complaint: EMS states: fall in the shower with unknown duration of LOC, daughter rgAngel stated to them that she was probably in the shower for 2 hrs. pt complains of neck pain 10/10 while in route. 23:05 Mechanism of Injury: Fall from standing position. Trauma event details: Injury rgAngel occurred: November 01, 2023. 23:05 Acuity: TYSHAWN 3 rg5 23:05 Method Of Arrival: EMS: [facility] rg5 23:05 Coronavirus screen: Client denies travel out of the [place] in the last 14 days. rg5 23:05 Ebola Screen: Patient negative for fever greater than or equal to 101.5 degrees rg5 Fahrenheit, and additional compatible Ebola Virus Disease symptoms. Initial Sepsis Screen: Does the patient meet any 2 criteria? No. Patient's initial sepsis screen is negative. Does the patient have a suspected source of infection? No. Patient's initial sepsis screen is negative. Risk Assessment: Do you want to hurt yourself or someone else? Patient reports no desire to harm self or others. Onset of symptoms was November 01, 2023. CLOTH COLORER: 22:05 LMP N/A - , Not rg5 Historical: - Allergies: 22:05 ambien; rg5 - PMHx: 22:05 brain cancer (Lung Cancer); Lung Cancer; rg5 - Immunization history:: Client reports receiving the 1st dose of the Covid vaccine. - Infectious Disease History:: Denies. - Social history:: Smoking status: unknown. Screenin:05 Abuse screen: Denies threats or abuse. Tuberculosis screening: No symptoms or risk rg5 factors identified. 23:25 [facility] ED Fall Risk Assessment (Adult) History of falling in the last 3 months, rg5 including since admission Yes- single mechanical fall (1 pt) Confusion or Disorientation No (0 pts) Intoxicated or Sedated No (0 pts) Impaired Gait Yes (1 pt) Mobility Assist Device Used Yes (1 pt) Altered Elimination No (0 pt) Score/Fall Risk Level 3 or more points = High Risk Oriented to surroundings, Maintained a safe environment, Educated pt \T\ family on fall prevention, incl call for assistance when getting out of bed, Hourly rounding (assess needs \T\ fall precautionary measures) done. Nutritional screening: No deficits noted. Assessment: 23:05 General: Appears uncomfortable, Behavior is calm, cooperative, appropriate for age. rg5 Pain: Complains of pain in neck Pain currently is 10 out of 10 on a pain scale. Quality of pain is described as aching, Pain began 1 hour ago. Is continuous. 11/01 00:39 Reassessment: No changes from previously documented assessment. Patient and/or family rg5 updated on plan of care and expected duration. Pain level reassessed. Patient is alert, oriented x 3, equal unlabored respirations, skin warm/dry/pink. 01:55 Reassessment: No changes from previously documented assessment. Patient and/or family rg5 updated on plan of care and expected duration. Pain level reassessed. Patient is alert, oriented x 3, equal unlabored respirations, skin warm/dry/pink. 02:57 Reassessment: No changes from previously documented assessment. Patient and/or family rg5 updated on plan of care and expected duration. Pain level reassessed. Patient is alert, oriented x 3, equal unlabored respirations, skin warm/dry/pink. 03:45 Reassessment: No changes from previously documented assessment. Patient and/or family rg5 updated on plan of care and expected duration. Pain level reassessed. Patient is alert, oriented x 3, equal unlabored respirations, skin warm/dry/pink. Patient states feeling better. 04:00 Reassessment: Lion (daughter) [phone]. rg5 04:41 Reassessment: TRIED SEVERAL TIMES TO CALL BUT NO ANSWER ON DAUGHTER'S PHONE NUMBER. rg5 Vital Signs: 10/31 23:05 BP 110 / 82; Pulse 82; Resp 17; Temp 97.9; Pulse Ox 100% on R/A; Weight 72.57 kg (R); rg5 Height 5 ft. 2 in. ; Pain 12/26; 11/01 00:40 BP 113 / 72; Pulse 80; Resp 17; Pulse Ox 100% on R/A; rg5 01:53 BP 105 / 68; Pulse 82; Resp 17; Pulse Ox 97% on R/A; rg5 02:57 BP 100 / 63; Pulse 71; Resp 16; Pulse Ox 100% on R/A; rg5 03:45 BP 101 / 67; Pulse 75; Resp 17; Temp 98; Pulse Ox 99% on R/A; Pain 4/10; rg5 10/31 23:05 Body Mass Index 29.26 (72.57 kg, 157.48 cm) rg5 10/31 23:05 Pain Scale: Adult rg5 03:45 Pain Scale: Adult rg5 [place] Coma Score: 10/31 23:05 Eye Response: spontaneous(4). Motor Response: obeys commands(6). Verbal Response: rg5 oriented(5). Total: 15. Trauma Score (Adult): 23:05 Eye Response: spontaneous(1); Verbal Response: oriented(1); Motor Response: obeys rg5 commands(2); Systolic BP: > 89 mm Hg(4); Respiratory Rate: 10 to 29 per min(4); Adrian Score: 15; Trauma Score: 12 ED Course: 22:05 Arm band placed on right wrist. EKG completed in triage. Results shown to MD. rg5 23:03 Patient arrived in ED. ld1 23:05 Patient has correct armband on for positive identification. Fall risk band placed. rg5 Placed in gown. Bed in low position. Call light in reach. Side rails up X2. playground monitor on. Pulse ox on. 23:07 Axel Ervin PA is PHCP. cp 23:07 Tyson Awad MD is Attending Physician. cp 23:11 Howard Brown, RASHMI is Primary Nurse. rg5 23:19 Triage completed. rg5 23:25 No provider procedures requiring assistance completed. rg5 23:26 Door closed. Noise minimized. Warm blanket given. rg5 23:42 Inserted saline lock: 22 gauge in left antecubital area, using aseptic technique. Blood sa1 collected. Flushed with 10 mL NS. Missed attempt(s): 20 gauge Bleeding controlled, band aid applied, catheter tip intact. 11/01 00:01 XRAY Chest (1 view) In Process Unspecified. EDMS 01:20 CT Head C Spine In Process Unspecified. EDMS 01:23 CT Chest For PE Angio In Process Unspecified. EDMS 03:48 Awaiting transportation, Awaiting: daughter to pick her up. rg5 03:49 Provided Education on: safety at home. rg5 03:49 IV discontinued, bleeding controlled, No redness/swelling at site. Pressure dressing rg5 applied. 04:00 Warm blanket given. rg5 04:06 LAB Add On Sent. rg5 04:37 Resting quietly. Appears to be sleeping. rg5 07:14 PHCP role handed off by Axel Ervin PA hb 07:14 Primary Nurse role handed off by Howard Brown RN Administered Medications: 03:26 Drug: HYDROcodone-acetaminophen PO 5 mg-325 mg 2 tabs PO once Route: PO; rg5 04:05 Follow up: Response: No adverse reaction; Pain is decreased rg5 Medication: 10/31 23:25 VIS not applicable for this client. rg5 Outcome: 11/01 03:22 Discharge ordered by . sp4 06:10 Discharged to home via wheelchair, rg5 06:10 Condition: good 06:10 Discharge instructions given to patient, Instructed on discharge instructions, follow up and referral plans. 06:11 Patient left the ED. rg5 07:55 Patient left the ED. iw Signatures: Dispatcher [employer] Jojo Trujillo, RN Axel Rucker PA PA cp Baxter, Heather, RN RN Renata Diallo RN RN [email or web address] Tyson Awad MD MD sp4 Gallardo, Rommel RN RN rg Sultan [facility] Corrections: (The following items were deleted from the chart) 04:38 03:49 Discharged to home via wheelchair, rg5 rg5 04:38 03:49 Condition: stable rg5 rg5 04:38 03:49 Discharge instructions given to patient, Instructed on discharge instructions, rg5 Demonstrated understanding of instructions, follow-up care, rg5
--- NOTE | 2023-11-02 03:22 | EDPHYS ---
Physician Documentation [facility] Name: Zari Posadas Age: 52 yrs Sex: Female : 1970 Arrival Date: 11/01/2023 Time: 22:59 Bed 16 Private MD: ED Physician Tyson Awad HPI: 10/31 23:10 This 52 yrs old Female presents to ER via EMS with complaints of Fall. cp 23:10 Patient is a 52-year-old female with a past medical history significant for metastatic cp lung cancer who presents to the emergency department after reporting that she went into her bathroom this evening to take a shower and the next thing she knew she woke up in her bathtub. Patient denies any chest and/or abdominal pain but does complain of neck pain. 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 - Infectious Disease History:: Denies. - Social history:: Smoking status: unknown. ROS: 23:15 Neck: Positive for pain with movement, tenderness, cp 23:15 Eyes: Negative for injury, pain, redness, and discharge, cp 23:15 Constitutional: Negative for body aches, chills, fever, poor PO intake, 23:15 Cardiovascular: Negative for chest pain, palpitations, 23:15 Respiratory: Negative for cough, shortness of breath, wheezing, 23:15 Abdomen/GI: Negative for abdominal pain, vomiting, diarrhea, constipation, 23:15 Neuro: Negative for altered mental status, dizziness, weakness, 23:15 All other systems are negative, cp Exam: 23:20 Constitutional: The patient appears in no acute distress, alert, awake, cp non-diaphoretic, non-toxic, well developed, well nourished, 23:20 Head/Face: Normocephalic, atraumatic. cp 23:20 Eyes: Periorbital structures: appear normal, Pupils: equal, round, and reactive to light and accomodation, Extraocular movements: intact throughout, Conjunctiva: normal, no exudate, no injection, Sclera: no appreciated abnormality, Lids and lashes: appear normal, bilaterally, 23:20 ENT: External ear(s): are unremarkable, Nose: is normal, Mouth: Lips: moist, Oral mucosa: moist, Posterior pharynx: Airway: no evidence of obstruction, patent, 23:20 Neck: External neck: tenderness, that is mild, of the right posterior aspect of neck, ROM/movement: pain, that is mild, with any movement, Meningeal signs: are not present, nuchal rigidity, is not appreciated, 23:20 Chest/axilla: Inspection: normal, 23:20 Cardiovascular: Rate: normal, Rhythm: regular, 23:20 Respiratory: the patient does not display signs of respiratory distress, Respirations: normal, no use of accessory muscles, no retractions, labored breathing, is not present, Breath sounds: are clear throughout, no decreased breath sounds, no stridor, no wheezing, 23:20 Abdomen/GI: Inspection: abdomen appears normal, Palpation: abdomen is soft and non-tender, in all quadrants, 23:20 Back: vertebral tenderness, is not appreciated, 23:20 Neuro: Orientation: to person, place \T\ time. Mentation: able to follow commands, Motor: moves all fours, 23:27 ECG was reviewed by the Attending Physician. cp Vital Signs: 23:05 BP 110 / 82; Pulse 82; Resp 17; Temp 97.9; Pulse Ox 100% on R/A; Weight 72.57 kg (R); rg5 Height 5 ft. 2 in. ; Pain 12/26; 11/01 00:40 BP 113 / 72; Pulse 80; Resp 17; Pulse Ox 100% on R/A; rg5 01:53 BP 105 / 68; Pulse 82; Resp 17; Pulse Ox 97% on R/A; rg5 02:57 BP 100 / 63; Pulse 71; Resp 16; Pulse Ox 100% on R/A; rg5 03:45 BP 101 / 67; Pulse 75; Resp 17; Temp 98; Pulse Ox 99% on R/A; Pain 4/10; rg5 10/31 23:05 Body Mass Index 29.26 (72.57 kg, 157.48 cm) [facility] 10/31 23:05 Pain Scale: Adult rg 03:45 Pain Scale: Adult [facility] [place] Coma Score: 10/31 23:05 Eye Response: spontaneous(4). Motor Response: obeys commands(6). Verbal Response: rg5 oriented(5). Total: 15. Trauma Score (Adult): 23:05 Eye Response: spontaneous(1); Verbal Response: oriented(1); Motor Response: obeys rg5 commands(2); Systolic BP: > 89 mm Hg(4); Respiratory Rate: 10 to 29 per min(4); [place] Score: 15; Trauma Score: 12 MDM: 23:10 Patient medically screened. 11/01 01:00 Awaiting: CT scan results. 01:00 Differential Diagnosis: cerebrovascular accident, GI bleed, seizure, vasovagal episode, cp syncope. Transition of care: After a detail discussion of the patient's case, care is transferred to Tyson Awad MD. 03:08 ED course: EXAM DESCRIPTION: HEAD CERVICAL SPINE MPR WITHOUT CONTRAST CLINICAL HISTORY: sp4 Syncope. COMPARISON: CT Head 10/21/2023. TECHNIQUE: Axial CT of the head obtained from the skull apex to the skull base without contrast. . Axial CT images of the facial bones obtained without contrast. Axial CT images of the cervical spine obtained without contrast. This exam was performed according to our departmental dose-optimization program, which includes automated exposure control, adjustment of the mA and/or kV according to patient size and/or use of iterative reconstruction technique. FINDINGS: Head CT: No acute intracranial hemorrhage identified. Vasogenic edema with mild mass effect identified in the right cerebral white matter. Stable left temporal encephalomalacia. Hypodense extra-axial fluid collection along the right superior convexity measuring 8 mm in thickness again identified. 4 mm [id number] midline shift. The ventricular system and sulcal spaces are mildly enlarged compatible with mild cerebral atrophy. Scattered areas of hypodensity throughout the supratentorial white matter are nonspecific and may be related to chronic small vessel ischemic change. Prior left craniotomy. Opacities in the mastoid air cells. Paranasal sinuses are well aerated. Atherosclerotic calcification of the intracranial internal carotid arteries. Cervical CT : Straightening of the cervical lordosis may be secondary to patient positioning. The atlantoaxial, atlantodental, and occipitoatlantal intervals are preserved. No fracture identified. Vertebral body height preserved. Prevertebral soft tissues are unremarkable. Mild to moderate multilevel loss of intervertebral disc height with endplate spondylosis, facet arthropathy, and uncovertebral spurring. Posterior disc osteophyte complex at multiple levels mildly encroach upon the anterior spinal canal. Mild neural foraminal narrowing. Visualized skull base is intact. Visualized thyroid is unremarkable. No cervical lymphadenopathy. No pneumothorax in the visualized lung apices. IMPRESSION: 1. No acute intracranial hemorrhage. 2. No acute fracture or subluxation of the cervical spine. 3. Stable vasogenic edema with mild mass effect identified in the right cerebral white matter likely related to metastatic disease. MRI of the brain with contrast recommended if not recently performed. 4. Stable 8 mm hypodense extra-axial fluid collection along the right superior convexity likely representing chronic extra-axial hemorrhage. Stable 4 mm right to left midline shift 5. Moderate multilevel degenerative change of the cervical spine.. 03:09 ED course: EXAM DESCRIPTION: CT CHESTANGIOGRAPHYWITH IV CONTRAST 11/02/2023 1:49 AM CDT sp4 CLINICAL HISTORY: 52 years, Female, Syncope. COMPARISON: XR Chest 11/01/2023. TECHNIQUE: Multiple transaxial tomograms of the chest were obtained from the lung apices through the lung bases after the administration of large bolus of IV contrast for complete opacification of the pulmonary arteries. Subsequent to 2-D and 3-D multiplanar reformats and maximum intensity projection images were generated in the sagittal and coronal planes. An individualized dose optimization technique, Automated Exposure Control, was utilized for the performed procedure. Contrast: Intravenous contrast was administered. FINDINGS: Neck base: Visualized thyroid gland and soft tissues are normal. No adenopathy. CTA: Diagnostic quality: Adequate for assessment of the subsegmental pulmonary arteries. The pulmonary arteries are adequately opacified. No evidence of pulmonary emboli or right heart strain. No acute finding in the thoracic aorta. CHEST: Lungs: The lung parenchyma demonstrate to be clear. No significant pulmonary nodules, masses and/or consolidations. Mild elevation of the right hemidiaphragm with minimal compressive atelectatic changes right posterior CP angle. Airways: The trachea mainstem bronchus demonstrate to be within normal limits. Pleura: No evidence for significant pleural effusions. The left diaphragms is well positioned. There is no evidence for pneumothorax. Mediastinum and keshawn: There is no significant mediastinal and/or hilar lymphadenopathy. The axillary regions demonstrate to be clear. Heart: Normal size. No pericardial thickening or effusion. Vessels: Coronary: No significant coronary artery calcifications. Aorta: The thoracic aorta demonstrate to be within normal limits. No evidence for aneurysm. Other: There is no significant filling defects within the pulmonary arteries to suggest pulmonary embolus. Osseous structures: The thoracic spine demonstrate to be within normal limits. No evidence for compression deformities and/or significant skeletal lesions. Musculoskeletal: No soft tissue and/or musculoskeletal abnormality. Visualized upper abdomen: The visualized portions of the upper abdomen demonstrate fatty infiltration of the liver. Status post lap band procedure. IMPRESSION: No evidence of pulmonary embolus. Mild elevation of the right hemidiaphragm with minimal compressive atelectatic changes right posterior CP angle. Fatty infiltration of the liver. Status post lap band procedure. . 03:10 Data reviewed: vital signs, nurses notes, radiologic studies, CT scan. sp4 03:10 ED course: EXAM DESCRIPTION: Chest Single View CLINICAL HISTORY: 52 years Female, sp4 syncope TECHNIQUE: 1 view (Single frontal view of the chest) COMPARISON: 10/21/2023 FINDINGS: LINES AND TUBES: None. CARDIOVASCULAR STRUCTURES: Normal heart size. No pulmonary venous congestion. LUNGS: No confluent areas of acute consolidation. PLEURA: No layering pleural effusions. No pneumothorax. BONES: No acute osseous abnormality of the thorax. IMPRESSION: 1. No acute cardiopulmonary disease. 03:19 Differential diagnosis: abrasion, closed head injury, contusion, fracture, laceration, sp4 multiple trauma, sprain, strain. Consideration of Admission/Observation Escalation of care including admission/observation considered. ED course: 52-year-old female with history of thyroid and lung cancer metastatic to the brain presents with acute fall at home.. CTs today negative for acute intracranial hemorrhage, negative for PE, negative for acute findings in the chest, post lap band procedure, negative chest x-ray.. 03:40 ED course: Repeat neurologic exam is nonfocal. No sign of lateralizing deficits. Normal sp4 but slow gait. 10/31 23:09 Order name: Basic Metabolic Panel; Complete Time: 00:50 cp 10/31 23:09 Order name: CBC with Diff; Complete Time: 00:18 cp 11/01 00:18 Interpretation: Normal except: HGB 11.8; MPV 7.3. cp 10/31 23:09 Order name: Magnesium; Complete Time: 00:50 cp 10/31 23:09 Order name: PT-INR; Complete Time: 00:50 cp 11/01 00:18 Interpretation: Reviewed. cp 10/31 23:09 Order name: Troponin HS; Complete Time: 00:50 cp 11/01 00:20 Order name: LAB Add On cp 11/01 00:23 Order name: D-Dimer; Complete Time: 00:50 EDMS 10/31 23:09 Order name: XRAY Chest (1 view) cp 10/31 23:09 Order name: CT Head C Spine cp 11/01 00:51 Order name: CT Chest For PE Angio cp 10/31 23:09 Order name: EKG; Complete Time: 23:10 cp 10/31 23:09 Order name: Cardiac monitoring; Complete Time: 23:24 cp 10/31 23:09 Order name: EKG - Nurse/Tech; Complete Time: 23:24 cp 10/31 23:09 Order name: IV Saline Lock; Complete Time: 23:47 cp 10/31 23:09 Order name: Labs collected and sent; Complete Time: 23:47 cp 10/31 23:09 Order name: O2 Per Protocol; Complete Time: 23:24 cp 10/31 23:09 Order name: O2 Sat Monitoring; Complete Time: 23:24 cp 10/31 23:09 Order name: C-Collar; Complete Time: 23:51 cp EC/15 23:27 Rate is 81 beats/min. Rhythm is regular. IA interval is normal. QRS interval is normal. cp QT interval is normal. T waves are Inverted in lead aVR. Interpreted by me. Reviewed by me. Administered Medications: 11/01 03:26 Drug: HYDROcodone-acetaminophen PO 5 mg-325 mg 2 tabs PO once Route: PO; rg5 04:05 Follow up: Response: No adverse reaction; Pain is decreased rg5 Disposition: 03:20 Co-signature as Attending Physician, Tyson Awad MD I agree with the assessment sp4 and plan of care. I reviewed the patient's care provided by Advanced Practice Provider \T\ agree w/ the diagnosis \T\ care plan. I personally saw the pt \T\ performed a substantive portion of the visit, incldng all aspects of the (History/Exam/Medical Decision Making). Disposition Summary: 11/02/23 03:22 Discharge Ordered Notes: Location: Home sp4 Problem: new sp4 Symptoms: have improved sp4 Condition: Stable sp4 Diagnosis - Fall on same level, unspecified sp4 - Acute fall at home, acute head injury sp4 Followup: sp4 - With: Private Physician - When: 7 - 10 days - Reason: Recheck today's complaints Discharge Instructions: - Discharge Summary Sheet sp4 - Head Injury, Adult, Kdbw-[id number] sp4 Forms: - Patient Portal Instructions sp4 Signatures: Dispatcher [employer] EDMS Axel Ervin PA PA cp Potepalov, Sergey, MD MD sp4 Howard Brown RN RN rg5 Corrections: (The following items were deleted from the chart) 10/31 23:41 23:10 This 52 yrs old Female presents to ER via EMS with complaints of Fall Injury. cp cp 11/01 00:27 00:21 D-DIMER+COAG.LAB.BRZ ordered. EDMS EDMS 00:52 00:51 Chest For PE Angio+CT.RAD.BRZ ordered. EDMS EDMS 14:15 10/31 23:10 This 52 yrs old Female presents to ER via EMS with complaints of Syncope. cpcp
[2023-11-02] MEDS ORDERED: HYDROCODONE/APAP 5/325 MG TAB ONE (03:24)
[2023-11-02 06:39] VITALS: BP 101/67; TEMP 98; O2SAT 99
--- NOTE | 2023-11-02 17:08 | RAD REPORT ---
EXAM DESCRIPTION: Chest Single View CLINICAL HISTORY: 52 years Female, syncope TECHNIQUE: 1 view (Single frontal view of the chest) COMPARISON: 10/21/2023 FINDINGS: LINES AND TUBES: None. CARDIOVASCULAR STRUCTURES: Normal heart size. No pulmonary venous congestion. LUNGS: No confluent areas of acute consolidation. PLEURA: No layering pleural effusions. No pneumothorax. BONES: No acute osseous abnormality of the thorax. IMPRESSION: 1. No acute cardiopulmonary disease. Electronically signed by: Willie Kang MD 11/02/2023 12:06 AM CDT RP N Due to temporary technical issues with the PACS/Fluency reporting system, reports are being signed by the in house radiologists without review as a courtesy to insure prompt reporting. The interpreting radiologist is fully responsible for the content of the report.
--- NOTE | 2023-11-02 17:09 | RAD REPORT ---
EXAM DESCRIPTION: CT CHEST ANGIOGRAPHY WITH IV CONTRAST 11/02/2023 1:49 AM CDT CLINICAL HISTORY: 52 years, Female, Syncope. COMPARISON: XR Chest 11/01/2023. TECHNIQUE: Multiple transaxial tomograms of the chest were obtained from the lung apices through the lung bases after the administration of large bolus of IV contrast for complete opacification of the pulmonary arteries. Subsequent to 2-D and 3-D multiplanar reformats and maximum intensity projection images were generate d in the sagittal and coronal planes. An individualized dose optimization technique, Automated Exposure Control, was utilized for the perfo rmed procedure. Contrast: Intravenous contrast was administered. FINDINGS: Neck base: Visualized thyroid gland and soft tissues are normal. No adenopathy. CTA: Diagnostic quality: Adequate for assessment of the subsegmental pulmonary arteries. The pulmonary arteries are adequately opacified. No evidence of pulmonary emboli or right heart strain. No acute finding in the thoracic aorta. CHEST: Lungs: The lung parenchyma demonstrate to be clear. No significant pulmonary nodules, masses and/or c onsolidations. Mild elevation of the right hemidiaphragm with minimal compressive atelectatic velarde es right posterior CP angle. Airways: The trachea mainstem bronchus demonstrate to be within normal limits. Pleura: No evidence for significant pleural effusions. The left diaphragms is well positioned. There is no evidence for pneumothorax. Mediastinum and keshawn: There is no significant mediastinal and/or hilar lymphadenopathy. The axillary regions demonstrate to be clear. Heart: Normal size. No pericardial thickening or effusion. Vessels: Coronary: No significant coronary artery calcifications. Aorta: The thoracic aorta demonstrate to be within normal limits. No evidence for aneurysm. Other: There is no significant filling defects within the pulmonary arteries to suggest pulmonary embolus. Osseous structures: The thoracic spine demonstrate to be within normal limits. No evidence for compre ssion deformities and/or significant skeletal lesions. Musculoskeletal: No soft tissue and/or musculoskeletal abnormality. Visualized upper abdomen: The visualized portions of the upper abdomen demonstrate fatty infiltration of the liver. Status post lap band procedure. IMPRESSION: No evidence of pulmonary embolus. Mild elevation of the right hemidiaphragm with minimal compressive atelectatic changes right posterio r CP angle. Fatty infiltration of the liver. Status post lap band procedure. Electronically signed by: Pranav Shipley MD 11/02/2023 02:04 AM CDT RP Due to temporary technical issues with the PACS/Fluency reporting system, reports are being signed by the in house radiologists without review as a courtesy to insure prompt reporting. The interpreting radiologist is fully responsible for the content of the report.
--- NOTE | 2023-11-02 17:11 | RAD REPORT ---
EXAM DESCRIPTION: HEAD CERVICAL SPINE MPR WITHOUT CONTRAST CLINICAL HISTORY: Syncope. COMPARISON: CT Head 10/21/2023. TECHNIQUE: Axial CT of the head obtained from the skull apex to the skull base without contrast. . A xial CT images of the facial bones obtained without contrast. Axial CT images of the cervical spine o btained without contrast. This exam was performed according to our departmental dose-optimization pro gram, which includes automated exposure control, adjustment of the mA and/or kV according to patient size and/or use of iterative reconstruction technique. FINDINGS: Head CT: No acute intracranial hemorrhage identified. Vasogenic edema with mild mass effect identified in the right cerebral white matter. Stable left temporal encephalomalacia. Hypodense extra-axial fluid colle ction along the right superior convexity measuring 8 mm in thickness again identified. 4 mm right-to- left midline shift. The ventricular system and sulcal spaces are mildly enlarged compatible with mild cerebral atrophy. Scattered areas of hypodensity throughout the supratentorial white matter are no nspecific and may be related to chronic small vessel ischemic change. Prior left craniotomy. Opacities in the mastoid air cells. Paranasal sinuses are well aerated. Athero sclerotic calcification of the intracranial internal carotid arteries. Cervical CT : Straightening of the cervical lordosis may be secondary to patient positioning. The atlantoaxial, a tlantodental, and occipitoatlantal intervals are preserved. No fracture identified. Vertebral body height preserved. Prevertebral soft tissues are unremarkable. Mild to moderate multilevel loss of intervertebral disc height with endplate spondylosis, facet arthr opathy, and uncovertebral spurring. Posterior disc osteophyte complex at multiple levels mildly encro ach upon the anterior spinal canal. Mild neural foraminal narrowing. Visualized skull base is intact. Visualized thyroid is unremarkable. No cervical lymphadenopathy . No pneumothorax in the visualized lung apices. IMPRESSION: 1. No acute intracranial hemorrhage. 2. No acute fracture or subluxation of the cervical spine. 3. Stable vasogenic edema with mild mass effect identified in the right cerebral white matter likel y related to metastatic disease. MRI of the brain with contrast recommended if not recently performed . 4. Stable 8 mm hypodense extra-axial fluid collection along the right superior convexity likely rep resenting chronic extra-axial hemorrhage. Stable 4 mm right to left midline shift 5. Moderate multilevel degenerative change of the cervical spine. Electronically signed by: Mark Allen DO 11/02/2023 02:13 AM CDT RP [id number] Due to temporary technical issues with the PACS/Fluency reporting system, reports are being signed by the in house radiologists without review as a courtesy to insure prompt reporting. The interpreting radiologist is fully responsible for the content of the report.
--- OUTSIDE RECORDS SUMMARY | 2023-11-05 08:12 | XMS REPORT | Clinical Summary ---
Author Name Unknown Organization [facility] Address [address] [place] [address] Care Team Providers Care Filler Sifter Machine Name Role Phone Luisana Lucio MD Unavailable [phone] Roseann Jensen MD Unavailable [phone] iSndi Casiano MD Primary Care Provider [phone] Ajith Fink MD Unavailable Annette Kang MD Unavailable [phone] Frannie Emery MD Unavailable [phone] Rajinder English APRN Unavailable Allergies Active Allergy [...] (10 mg) by mouth twice daily. Active gabapentin (NEURONTIN) 300 mg capsuleIndications :Other [...] 024 potassium chloride (Klor-Con M20) 20 mEq tabletIndications: [...] mouth daily with breakfast. 30 tablet 07/07/19 024 Discontinued(Re order) vancomycin (FIRVANQ) 50 mg/mL [...] for approximately 30 seconds. 300 mL 07/07/19 024 Discontinued(Re order) propranolol (INDERAL) 10 mg [...] by mouth at bedtime. 024 Discontinued(Re order) dexAMETHasone (DECADRON) 4 mg tabletIndications: Other encephalopathy Take 1 tablet (4 mg) by mouth every 8 (eight) hours for 3 days, THEN 1 tablet (4 mg) twice daily for 5 days, THEN 1 tablet (4 mg) daily for 5 days. 24 tablet 10/08/19 24 024 levoFLOXacin (LEVAQUIN) 500 mg tabletIndications: Urinary tract [...] Overview: Added automatically from request for surgery [id number] Lymphocytic colitis 10/20/2021 Acute renal failure syndrome [...] Overview: Added automatically from request for surgery [id number] Chronic diarrhea 12/03/2020 Overview: Added automatically from request for surgery [id number] Lesion of brain 02/03/2020 Overview: Added automatically from request for surgery [id number] Hypokalemia 01/31/2020 Disorder of fluid AND/OR electrolyte [...] Encounters Date Type Department Care Team Description 10/30/2023 Orders Only Radiation Treatment Center [facility] Main [facility], 1st [place] [address] Sammi Byrne APRN Secondary malignant neoplasm of brain (Primary Dx) 10/25/2023 4:30 PM CDT POEM Appointments Per[facility] [address] [place] [address] Main [facility], 6th [place] [address] Sindi Casiano MD 10/24/2023 11:59 PM CDT Anesthesia Event [facility] Management [facility] [address] [place] [address] Main [facility], 6th [place] [address] Francoise Michael, RASHMI 10/16/2023 Telephone Gastrointestinal Center 15[address] [facility] Main [facility], 7th [place] [address] Elizabeth Morelos MA 10/08/2023 Orders Only [facility] Sp[facility] - Neurosurgery [facility] Main [facility], 7th [place] [address] Avbovbo, Ufuoma, LIMEHOUSE WORKER Secondary malignant neoplasm of brain (Primary Dx) 10/06/2023 Orders Only [facility] - Neuro Oncology [facility] Main Bldg, 7th [place] [address] Carmita Castorena MD 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 (Primary Dx) 10/05/2023 12:45 PM CDT Anesthesia Event Diagnostic Imaging Center [address] [place] [address] Main Bldg, 3rd [place] [address] Aramis Nicholas MD Shaik, Ghouse B, LIMEHOUSE WORKER 10/02/2023 Travel 10/01/2023 11:17 AM CDT - 10/08/2023 5:04 PM CDT Hospital Encounter MAIN 22NE [address] [place] [address] Zuri Farr MD Taylor, Terry Pham, MD Brito-Dellan, Norman, MD Parhizgar, Alireza, MD Aphasia (Primary Dx); Other encephalopathy; Adenocarcinoma, NOS of lower lobe, 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>; Urinary tract infection, not otherwise specified; Other low back pain; Malignant neoplasm of unspecified part of unspecified bronchus or lung Discharge Disposition: Home with Home-Health or Physical Therapy 10/01/2023 Travel 09/10/2023 Orders Only Abdominal Imaging [address] [place] [address] Padmini Morelos LIMEHOUSE WORKER 09/10/2023 Orders Only Radiation Treatment Center [address] [place] [address] Main Bldg, 1st [place] [address] Vicky Denise, LIMEHOUSE WORKER Secondary malignant neoplasm of brain (Primary Dx) 09/10/2023 Documentation Radiation Treatment Center [address] [place] [address] Main Bldg, 1st [place] [address] Vicky Denise, LIMEHOUSE WORKER 09/05/2023 Orders Only Thoracic Center - Medical Oncology [address] [place] [address] Main Bldg, 9th [place] [address] Dalia Weiner, LIMEHOUSE WORKER Non-small cell carcinoma of lung, TNM stage 4 <Unspecified side> (Primary Dx) 09/04/2023 11:00 AM CDT Telemedicine [facility] - Neurosurgery [address] [place] [address] Main [facility], 7th [place] [address] Frannie Emery MD Secondary malignant neoplasm of brain (Primary Dx) 09/03/2023 11:59 PM CDT Anesthesia Event Diagnostic [facility] [address] [place] [address] Main [facility], 3rd [place] [address] Lima Zavala MD 08/31/2023 4:49 PM CDT Anesthesia Event [facility] [address] [place] [address], 6th [place] [address] Francoise Michael RN 08/31/2023 4:30 PM CDT POEM Appointments [facility] [address] [place] [address], 6th [place] [address] Sindi Casiano MD 08/29/2023 [facility] - Medical Oncology [address] [place] [address], 9th [place] [address] Lorenza Taylor, RN 08/24/2023 Case Management Case Management [address] [place] [address] Ashlyn Hernandez, RN 08/23/2023 [facility] Thoracic Center - Medical Oncology [address] [place] [address], 9th [place] [address] Dalia Weiner, LIMEHOUSE WORKER Non-small cell carcinoma of lung, TNM stage 4 <Unspecified side> (Primary Dx) 08/23/2023 Case Management Case Management [address] [place] [address] Ashlyn Hernandez, RN 08/08/2023 10:12 AM CDT Anesthesia Event [facility] [address] [place] [address] Main [facility], 3rd [place] [address] Nedra Oscar MD Thomas, Cini, SUSANA,CLINICAL STATISTICS MANAGER 07/31/2023 Travel 07/30/2023 8:38 PM CDT - 08/11/2023 2:13 PM CDT Hospital Encounter MAIN [address] [place] [address] Shadia Clement MD Gao, Lucy C, MD [...] Gastrointestinal Center - Gastroenterology, Hepatology & Nutrition [address] [place] [address], 7th [place] [address] Mounika Caballero, LIMEHOUSE WORKER 07/30/2023 Case Management Case Management [address] [place] [address] Johnie Velasco RN 07/27/2023 Orders Only Clinical Pharmacy [address] [place] [address], 2nd [place] [address] Jonathan Mohr [facility] 07/26/2023 9:54 AM CDT Anesthesia Event [facility] [address] [place] [address], 3rd [place] [address] Elisa Reyes CRNA 07/26/2023 Orders Only [facility] - Neuro Oncology [address] [place] [address], 7th [place] [address] Suzi Dias Seizure, not otherwise specified (Primary Dx) 07/25/2023 Travel 07/24/2023 8:53 PM CDT - 07/29/2023 5:11 PM CDT Hospital Encounter MAIN 17SE [address] [place] [address] Shadia Clement MD Gao, Lucy C, MD [...] Travel 07/24/2023 Case Management Case Management [address] [place] [address] Johnie Velasco RN 07/23/2023 10:45 AM CDT Ancillary Procedure CT Imaging 1220 [facility], 7th [place] [address] Dalia Weiner APRN Non-small cell carcinoma of lung, TNM stage 4 <Unspecified side> 07/23/2023 9:15 AM CDT - 07/23/2023 11:59 PM CDT Hospital Encounter Diagnostic Laboratory Center [address] [place] [address] Dalia Weiner APRN Non-small cell carcinoma of lung, TNM stage 4 <Unspecified side> Discharge Disposition: Home 07/20/2023 Orders Only Gastrointestinal Center - Gastroenterology, Hepatology & Nutrition [facility]5 [facility], 7th [place] [address] JunekMounika APRN Diarrhea (Primary Dx); Lymphocytic colitis 07/20/2023 Travel 07/19/2023 8:00 AM CDT Telemedicine Gastrointestinal Center - Gastroenterology, Hepatology & Nutrition 1515 [facility] Main [facility], 7th [place] [address] Mounika Caballero APRN Lymphocytic colitis (Primary Dx); Diarrhea 07/19/2023 Prep for Surgery Gastrointestinal Center - Gastroenterology, Hepatology & Nutrition [facility], 7th [place] [address] JunekMounika APRN Lymphocytic colitis (Primary Dx); Diarrhea; Malignant neoplasm of unspecified part of unspecified bronchus or lung 07/18/2023 Case Management Case Management [address] [place] [address] Johnie Velasco, RN 07/17/2023 Telephone Colorectal Center - Colon and Rectal Surgery [facility], 7th [place] [address] Chika Pastrana MA 07/17/2023 Orders Only Thoracic Center - Medical Oncology [address] [place] [address], 9th [place] [address] Dalia Weiner APRN Non-small cell carcinoma of lung, TNM stage 4 <Unspecified side> (Primary Dx) 07/16/2023 Case Management Case Management [address] [place] [address] Johnie Velasco, RN 07/12/2023 Telephone Case Management [address] [place] [address] Johnie Velasco, RN 07/12/2023 Telephone Case Management [address] [place] [address] Johnie Velasco, RN 07/11/2023 Orders Only Gastrointestinal Center - Gastroenterology, Hepatology & Nutrition [address] [place] [address], 7th [place] [address] Mounika Caballero APRN Lymphocytic colitis (Primary Dx) 07/09/2023 Case Management Case Management [address] [place] [address] Johnie Velasco, RASHMI 07/05/2023 Orders Only Neuroradiology [address] [place] [address] Gilles Beatty MD 07/03/2023 3:02 PM CDT - 07/07/2023 6:40 PM CDT Hospital Encounter MAIN [address] [place] [address] Abhijit Farr MD Musunuru, Tejo, MD Franco [...] 07/03/2023 Telephone Thoracic Center - Medical Oncology [address] [place] [address], 9th [place] [address] Ildefonso Donaldson MA 07/03/2023 Telephone [facility] - Neurosurgery [address] [place] [address] Main Bldg, 7th [place] [address] Yumiko Briones RN 06/30/2023 Orders Only [facility] - Neuro Oncology [address] [place] [address] Main dg, 7th [place] [address] Shae Cosme MD Secondary malignant neoplasm of brain (Primary Dx) 06/29/2023 2:08 PM CDT Anesthesia Event Diagnostic [facility] [address] [place] [address] Main Bldg, 3rd Floor Elevator F [place] [phone] Asim Ontiveros DO Thomas, Nina, APRN 06/27/2023 5:31 PM CDT - 07/01/2023 6:33 PM CDT Hospital Encounter MAIN [address] [place] [address] Kalpana William MD Wechsler, Adriana, MD Yeung, Sai-Ching, MD Musunuru, Tejo, MD Etchegaray-Langly, Mikel, MD Auditory hallucination (Primary Dx); Secondary malignant neoplasm of brain; Non-small cell carcinoma of lung, TNM stage 4; Poor balance; Depressive disorder; Chronic diarrhea; Subdural hematoma <Subsequent>; Iron deficiency anemia, not otherwise specified Discharge Disposition: Home 06/27/2023 Travel 06/22/2023 Orders Only [facility]acic [place] - Medical Oncology [address] [place] [address] Main [facility], 9th Floor Elevator B [place] [phone] Dalia Weiner APRN Non-small cell carcinoma of lung, TNM stage 4 <Unspecified side> (Primary Dx); Hyperlipidemia, not otherwise specified; Hypokalemia 06/18/2023 Orders Only Thoracic [facility] Medical Oncology [address] [place] [address] Main [facility], 9th [place] [address] Dalia Weiner, SUSANA Malignant neoplasm of unspecified part of unspecified bronchus or lung (Primary Dx) 06/12/2023 Telephone [facility] [place] - Medical Oncology [address] [place] [address] Main dg, 9th [place] [address] Alex Bo MA 06/08/2023 12:30 PM CDT Telemedicine [facility] Sp[facility] - Neurosurgery [facility] Main Bldg, 7th Floor Elevator B [place] [phone] Mark Batista MD Ferguson, Sherise D., MD Secondary malignant neoplasm of brain 06/05/2023 Orders Only Neuroradiology [address] [place] [address] Joslyn Sy MD 06/05/2023 Orders Only Radiation Treatment Center [address] [place] [address] Main dg, 1st Floor near Elevator G [place] [phone] Saira Carrasquillo APRN Secondary malignant neoplasm of brain (Primary Dx) 06/04/2023 1:44 PM CDT - 06/04/2023 11:59 PM CDT Hospital Encounter Radiation Treatment Center [address] [place] [address] Main dg, 1st Floor near Elevator G [place] [phone] Bree Calderón MD Secondary malignant neoplasm of brain (Primary Dx) Discharge Disposition: Home 06/04/2023 11:26 AM CDT Anesthesia Event Diagnostic [facility] [address] [place] [address] Main dg, 3rd [place] [address] Darius Zelaya MD Kwok, Cindy, CRNA 06/04/2023 10:15 AM CDT - 06/04/2023 1:43 PM CDT Hospital Encounter [facility] [address] [place] [address] Main Bldg, 3rd [place] [address] Saira Carrasquillo APRN Potylchansky, Yury, MD Kwok, Cindy, CRNA Secondary malignant neoplasm of brain Discharge Disposition: Home 06/04/2023 Travel 06/01/2023 11:59 PM CDT Anesthesia Event Peri[facility] Evaluation [facility] Management [facility] [address] [place] [address] Main Bldg, 6th [place] [address] Rahel Smallwood APRN 06/01/2023 4:30 PM CDT POEM Appointments [facility] Management [facility] [facility] Main Bldg, 6th [place] [address] Sindi Casiano MD 05/17/2023 Orders Only Thoracic Center - Medical Oncology [address] Main Bldg, 9th [place] [address] Dalia Weiner, SUSANA Malignant neoplasm of unspecified part of unspecified bronchus or lung (Primary Dx) 05/17/2023 Orders Only [facility]acic Center - Medical Oncology [address] Main Bldg, 9th [place] [address] Dalia Weiner APRN Malignant neoplasm of unspecified part of unspecified bronchus or lung; Diarrhea 05/16/2023 Refill [facility] [place] - Medical Oncology [address] Main Bldg, 9th [place] [address] Dalia Weiner, SUSANA Malignant neoplasm of unspecified part of unspecified bronchus or lung; Diarrhea 05/03/2023 Documentation Radiation Treatment Center [facility] [facility] Main [place]ld[place] [address] Bree Calderón MD 05/02/2023 Orders Only [facility]acic [facility] - Medical Oncology [address] [facility] Main Bldg, 9th [place] [address] Dalia Weiner, LIMEHOUSE WORKER Non-small cell carcinoma of lung, TNM stage 4 <Unspecified side> (Primary Dx) 04/18/2023 2:40 PM ADOLESCENT SPECIALIST - 04/18/2023 11:59 PM ADOLESCENT SPECIALIST Hospital Encounter Diagnostic Laboratory Center 1515 [facility] Main Bldg, [place] [address] Sindi Casiano MD Malignant neoplasm of unspecified part of unspecified bronchus or lung Discharge Disposition: Home 04/18/2023 1:00 PM ADOLESCENT SPECIALIST Follow-Up [facility] [place] - Medical Oncology [facility] [facility] Main Bldg, 9th [place] [address] Sindi Casiano MD Malignant neoplasm of unspecified part of unspecified bronchus or lung (Primary Dx); Non-small cell carcinoma of lung, TNM stage 4 <Unspecified side> 04/18/2023 Documentation Rehabilitation Services 1515 [facility], 1st Floor G1.3418 [place] [address] Gabriella Zohreh Mcguire, PT 04/18/2023 Orders Only Thoracic Center - Medical Oncology 1515 [facility], 9th [place] [address] Rosa Almendarez, JeanethD Malignant neoplasm of unspecified part of unspecified bronchus or lung (Primary Dx) 04/18/2023 Travel 04/16/2023 2:05 PM ADOLESCENT SPECIALIST Ancillary Procedure CT Imaging 1220 [facility], 7th [place] [address] Dalia Weiner, LIMEHOUSE WORKER Non-small cell carcinoma of lung, TNM stage 4 <Unspecified side> 04/12/2023 9:30 AM ADOLESCENT SPECIALIST - 04/12/2023 11:59 PM ADOLESCENT SPECIALIST Hospital Encounter Radiation Treatment Center [facility], 1st [place] [address] Saira Carrasquillo APRN Secondary malignant neoplasm of brain Discharge Disposition: Home 04/12/2023 Orders Only [facility] - Neurosurgery [facility], 7th [place] [address] Rajinder English, SUSANA Lesion of brain (Primary Dx) 04/11/2023 8:13 AM ADOLESCENT SPECIALIST Anesthesia Event Radiation Treatment Center [address] [place] [address] Radiation Oncology [place] Take Elevator G to the Basement [place] [address] Kenton Reich MD 04/11/2023 7:10 AM ADOLESCENT SPECIALIST - 04/11/2023 11:40 AM ADOLESCENT SPECIALIST Surgery Rad[facility] [address] [place] [address] Radiation Oncology [place] Take Elevator G to the Basement [place] [address] Bree Calderón MD 4 STAR - STEREOTACTIC RADIATION [place] MANAGEMENT,CRANIAL LESION 04/11/2023 7:03 AM ADOLESCENT SPECIALIST - 04/11/2023 5:39 PM ADOLESCENT SPECIALIST Hospital Encounter Radiation Treatment Center 1515 [facility] Main Radiation Oncology Center Take Elevator G to the [place] [address] Mark Batista MD Discharge Disposition: Home 04/11/2023 Documentation Radiation Treatment Center 1515 [facility] Main [place]ld[place] [address] Bree Calderón MD 04/11/2023 Documentation Radiation Treatment Center [facility] [facility] Main [place]ld[place] [address] Bree Calderón MD 04/11/2023 Documentation Radiation Treatment Center [address] [facility] Main [place]ldg [place] [address] Bree Calderón MD 04/11/2023 Travel 04/10/2023 11:00 AM ADOLESCENT SPECIALIST - 04/10/2023 11:59 PM ADOLESCENT SPECIALIST Hospital Encounter Radiation Treatment Center 15[address] [facility] Main Bldg, 1st [place] [address] Saira Carrasquillo, Arun Laws, RASHMI Secondary malignant neoplasm of brain Discharge Disposition: Home 04/10/2023 Prep for Surgery [facility] - Neurosurgery [address] [facility] Main Bldg, 7th [place] [address] Rajinder English, SUSANA 04/10/2023 Documentation [facility] - Neurosurgery [address] Main Bldg, 7th [place] [address] Marcella Hopper, LIMEHOUSE WORKER 04/10/2023 Prep for Surgery [facility] - Neurosurgery [address] Main Bldg, 7th [place] [address] Marcella Hopper, LIMEHOUSE WORKER Secondary malignant neoplasm of brain (Primary Dx) 04/09/2023 10:37 AM ADOLESCENT SPECIALIST - 04/09/2023 11:59 PM ADOLESCENT SPECIALIST Hospital Encounter Diagnostic Laboratory Center 15[address] [facility] Main Bldg, [place] [address] Saira Carrasquillo APRN Secondary malignant neoplasm of brain Discharge Disposition: Home 04/09/2023 7:28 AM ADOLESCENT SPECIALIST Anesthesia Event Diagnostic Imaging Center [address] [facility] Main Bldg, 3rd [place] [address] Darius Zelaya MD 04/09/2023 6:08 AM ADOLESCENT SPECIALIST - 04/09/2023 10:36 AM ADOLESCENT SPECIALIST Hospital Encounter Diagnostic Imaging Center 15[address] [facility] Main Bldg, 3rd [place] [address] Saira Carrasquillo APRN Mirza, Alisa, CRNA Potylchansky, Yury, MD Secondary malignant neoplasm of brain Discharge Disposition: Home 04/06/2023 11:59 PM ADOLESCENT SPECIALIST Anesthesia Event [facility] Main Bldg, 6th [place] [address] Yamilet Gibson RN 04/06/2023 11:30 AM ADOLESCENT SPECIALIST POEM Appointments [facility] Main Bldg, 6th [place] [address] Sindi Casiano MD 03/26/2023 Orders Only Thoracic Center - Medical Oncology [address] [facility] Main Bldg, 9th [place] [address] Dalia Weiner APRN Hypokalemia (Primary Dx) 03/02/2023 Documentation Radiation Treatment Center [facility] Main Bldg, 1st [place] [address] Crutis Welsh APRN 02/27/2023 Orders Only Neuroradiology [address] [place] [address] Tere Hawkins MD 02/27/2023 Orders Only Radiation Treatment Center [address] [place] [address] Main Bldg, 1st [place] [address] Saira Carrasquillo APRN Secondary malignant neoplasm of brain (Primary Dx) 02/26/2023 2:49 PM ADOLESCENT SPECIALIST - 02/26/2023 11:59 PM ADOLESCENT SPECIALIST Hospital Encounter Radiation Treatment Center 15[address] [facility] Main Bldg, 1st [place] [address] Bree Calderón MD Secondary malignant neoplasm of brain Discharge Disposition: Home 02/26/2023 Travel 02/14/2023 9:23 AM ADOLESCENT SPECIALIST Anesthesia Event Diagnostic Imaging Center 15[address] [facility] Main Bldg, 3rd [place] [address] Bambi Hernandez MD 02/14/2023 8:00 AM ADOLESCENT SPECIALIST - 02/14/2023 11:59 PM ADOLESCENT SPECIALIST Hospital Encounter Diagnostic Imaging Center [address] Main Bldg, 3rd Floor Elevator F [place] [phone] Jailene Crespo CRNA Oliver, Jodi Ann, MD Secondary malignant neoplasm of brain Discharge Disposition: Home 02/07/2023 11:59 PM ADOLESCENT SPECIALIST Anesthesia Event Perioperative Evaluation and Management Center 15[address] [facility] Main Bldg, 6th Floor Elevator A [place] [phone] Miguel Angel Riggins RN 02/07/2023 12:00 PM ADOLESCENT SPECIALIST POEM Appointments Perioperative Evaluation and Management Center [facility] Main Bldg, 6th Floor Elevator A [place] [phone] Sindi Casiano MD 01/29/2023 [facility] Thoracic Center - Medical Oncology 15[address] [facility] Main Bldg, 9th Floor Elevator B [place] [phone] Dalia Weiner APRN Non-small cell carcinoma of lung, TNM stage 4 <Unspecified side> (Primary Dx) 01/17/2023 7:50 AM CDT - 01/17/2023 11:59 PM CDT Hospital Encounter Main [facility] IMAGING [facility] Main Bldg, 3rd Floor Elevator A [place] [phone] Dalia Weiner APRN Non-small cell carcinoma of lung, TNM stage 4 <Unspecified side> Discharge Disposition: Home 01/17/2023 7:24 AM CDT - 01/17/2023 7:49 AM CDT Hospital Encounter Diagnostic Laboratory Center 15[address] [facility] Main Bldg, [place] [address] Dalia Weiner APRN Non-small cell carcinoma of lung, TNM stage 4 <Unspecified side> Discharge Disposition: Home 01/17/2023 Orders Only Thoracic Center - Medical Oncology [address] [facility] Main Bldg, 9th [place] [address] Rosa Almendarez, Greer 01/09/2023 Orders Only Neuroradiology [address] [place] [address] Sharlene Wayne MD 01/09/2023 Orders Only Radiation Treatment Center [address] [place] [address] Main Bldg, 1st [place] [address] Vicky Denise APRN Secondary malignant neoplasm of brain (Primary Dx) 01/08/2023 4:00 PM CDT - 01/08/2023 11:59 PM CDT Hospital Encounter [facility] [address] [place] [address] Main Bldg, 1st [place] [address] Bree Calderón MD Secondary malignant neoplasm of brain Discharge Disposition: Home 01/05/2023 9:44 AM CDT Anesthesia Event Diagnostic Imaging Center [facility]5 [facility] Main Bldg, 3rd [place] [address] Moni Malloy MD Kwok, Cindy, CRNA 01/05/2023 8:00 AM CDT - 01/05/2023 11:59 PM CDT Hospital Encounter Diagnostic [facility]5 [facility] Main Bldg, 3rd [place] [address] Lois Willingham MD Nguyen, Anh-Thuy, MD Casarez, Vianey, CRNA Secondary malignant neoplasm of brain Discharge Disposition: Home 01/04/2023 4:00 PM CDT POEM Appointments [facility] [address] [place] [address] Main Bldg, 6th [place] [address] Sindi Casiano MD 12/11/2022 [facility] [address] [facility] Main Bldg, 9th [place] [address] Carmelita Cisse RN 11/29/2022 11:59 PM CDT Anesthesia Event [facility] [address] [facility] Main Bldg, 6th [place] [address] Navarro Briseno II, LIMEHOUSE WORKER 11/29/2022 10:21 AM CDT - 11/29/2022 11:59 PM CDT Hospital Encounter Diagnostic Laboratory Center [address] [place] [address] Dalia Weiner APRN Non-small cell carcinoma of lung, TNM stage 4 <Unspecified side> Discharge Disposition: Home 11/29/2022 9:32 AM CDT - 11/29/2022 10:20 AM CDT Hospital Encounter Interventional Radiology [address] [facility], 4th [place] [address] Sindi Casiano MD Chen, Stephen, MD Subdural hematoma <Subsequent> (Primary Dx); Follow-up 7-11 months Discharge Disposition: Home 11/29/2022 6:00 AM CDT Ancillary Procedure CT Imaging [address] [facility], 7th [place] [address] Randa Méndez PA 11/29/2022 Orders Only Radiation Treatment Center 15[address] [facility] Main dg, 1st [place] [address] Lois Willingham MD 11/29/2022 Travel 11/27/2022 Orders Only Thoracic Center - Medical Oncology [address] [facility] Main Bldg, 9th [place] [address] Dalia Weiner APRN Non-small cell carcinoma of lung, TNM stage 4 <Unspecified side> (Primary Dx) 11/16/2022 Orders Only Thoracic Center - Medical Oncology [address] [facility] Main Bldg, 9th [place] [address] Dalia Weiner, SUSANA Non-small cell carcinoma of lung, TNM stage 4 <Unspecified side> (Primary Dx) 11/02/2022 9:30 AM CDT Ancillary Procedure CT Imaging [address] [facility], 7th [place] [address] Dalia Weiner, LIMEHOUSE WORKER Non-small cell carcinoma of lung, TNM stage 4 <Unspecified side> after 11/01/2022 Immunizations Name Administration Dates Next Due Pfizer SARS-CoV-2 Vaccination (Purple Cap) 11/06 Surgical History Surgery Date Site/Laterality Comments THYROID SURGERY 07/14/2016 was planned for partial thyroidectomy which was aborted d/t positive LN UTERINE FIBROID EMBOLIZATION GALLBLADDER SURGERY LAPAROSCOPIC GASTRIC BANDING TUBAL LIGATION MN EGD TRANSORAL BIOPSY SINGLE/MULTIPLE 05/31/2019 Esophagus/N/A Procedure: UPPER GASTROINTESTINAL ENDOSCOPY OF ESOPHAGUS, STOMACH, AND DUODENUM WITH BIOPSY; Surgeon: Haile Whittaker MD; Location: MAIN ENDOSCOPY; Service: GASTROENTEROLOGY MN CRANIEC TREPHINE BONE FLP BRAIN TUMOR SUPRTENTOR 02/10/2020 Head/Left Procedure: LEFT TEMPORAL CRANIOTOMY FOR EXCISION OF BRAIN TUMOR; Surgeon: Frannie Emery MD; Location: MAIN OR; Service: NEUROSURGERY Medical devices from this surgery are in the Medical Devices section. MN COLONOSCOPY FLX DX W/COLLJ SPEC WHEN PFRMD 09/28/2021 N/A Procedure: DIAGNOSTIC FLEXIBLE COLONOSCOPY PROXIMAL TO SPLENIC FLEXURE; Surgeon: Annette Kang MD; Location: MAIN ENDOSCOPY; Service: GASTROENTEROLOGY; The EGD and colonoscopy showed minimal inflammation in the stomach/duodenum, but lymphocytic colitis on biopsy, which could certainly explain her symptoms of diarrhea. MN TCAT PERMANENT OCCLUSION/EMBOLIZATION PRQ DIRECTOR OF AUTOMATION 06/09/2022 Bilateral Procedure: IR EMBOLIZATION DIRECTOR OF AUTOMATION (INTRACRANIAL); Surgeon: Haim Mckeon MD; Location: MAIN OR; Service: INTERVENTIONAL RADIOLOGY MN STERETCTC RADIATION [place] MANAGEMENT CRANIAL LESION 04/11/2023 [...] Care Team (Late st Contact Info) Description 11/05/2023 3:40 PM CDT Appointment Radiation Treatment [facility]5 [facility] Main [facility], 1st [place] [address] Bree Calderón MD [facility]5 [place] [address] [email or web address] 11/06/2023 2:00 PM CDT Office Visit [facility] - Neuro Oncology [address] [facility] Main [facility], 7th [place] [address] Carl Gutierrez MD [address] [place] [address] [email or web address] 01/01/2024 11:00 AM CDT Telemedicine [facility] - Neurosurgery [address] [facility], 7th [place] [address] Frannie Emery MD [address] [place] [address] [email or web address] Maintenance Due Date Last Done Comments COVID-19 Vaccine (2 - Pfizer risk series) 11/27/2020 11/06/2020 Influenza Vaccine 11/18/2023 Pneumococcal Vaccine: Pediat rics (0 to 5 Years) and At-Risk Patients (6 to 64 Years) Aged Out No longer eligi ble based on patient's age to complete this topic Medical Devices Implanted Type Area Telemetry Registered Nurse Device Identifier Shelf Expiration Date Model / Serial / Lot Lap Band Implant Stomach [employer] [id number] / [id number] / Description:Lap band--Cezar river[employer] [facility]--2010--Dr. Edward Reed--[phone] Allergan Lap-Band--Conditional 5 up to 3T per [employer] Hc Cover, Matrix Neuro Ulp [place], Ti, 17mm - [id number] Implanted:Qty: 2 on 02/10/2020 by Frannie Emery MD at [facility] Implant Left: Cranial SYNTHES [facility] .0 23 / / Plate, Matix, Neuro, Ulp Ti, Box, 35lpf05ab - [id number] Implanted:Qty: 1 on 02/10/2020 by Frannie Emery MD at [facility] Implant Left: Cranial Glipho [place] .0 65 / / Screw Matrixneuro 4mm Self Drilling Pkg 1 - [id number] Implanted:Qty: 13 on 02/10/2020 by Frannie Emery MD at [facility] Metalware Left: Cranial SafetyPay 503.1 04.01 / / [place] Crani 17mm Low Profile - [id number] Implanted:Qty: 1 on 02/10/2020 by Frannie Emery MD at [facility] Metalware Left: Cranial SYNTHES [facility] 04.503.0 23 / / Sealant Duraseal 5ml - [id number] Implanted:Qty: 1 on 02/10/2020 by Frannie Emery MD at [facility] Skin/Tissue Left: Cranial COVIDIEN 12/16/2020 / / [id number] Procedures Procedure Name Priority Date/Time Associated Diagnosis [...] 5:02 AM CDT PHOSPHORUS LEVEL Routine 08/11/2023 5:0 2 AM CDT MAGNESIUM LEVEL Routine 08/11/2023 5:02 [...] 4:19 AM CDT HEPATIC FUNCTION PANEL Add-On 4 4:19 AM CDT HC PROCALCITONIN (PCT) Add-On 4 4:19 AM CDT .CBC Routine 08/04/2023 4:19 [...] brain LIPID PANEL Routine 04/18/2023 2:50 PM ADOLESCENT SPECIALIST Malignant neoplasm of unspecified part of unspecified bronchus or lung MAGNESIUM LEVEL Routine 04/18/2023 2:50 PM ADOLESCENT SPECIALIST Malignant neoplasm of unspecified part of unspecified bronchus or lung CREATINE KINASE Routine 04/18/2023 2:50 PM ADOLESCENT SPECIALIST Malignant neoplasm of unspecified part of unspecified bronchus or lung COMPREHENSIVE METABOLIC PANEL Routine 04/18/2023 2:50 PM ADOLESCENT SPECIALIST Malignant neoplasm of unspecified part of unspecified bronchus or lung CT CHEST ABDOMEN PELVIS W CONTRAST Routine 04/16/2023 5:20 PM ADOLESCENT SPECIALIST Non-small cell carcinoma of lung, TNM stage 4 <Unspecified side> POC CREATININE Routine 04/16/2023 4:39 PM ADOLESCENT SPECIALIST MN STERETCTC RADIATION [place] MANAGEMENT CRANIAL LESION 04/11/2023 8:03 AM ADOLESCENT SPECIALIST Secondary malignant neoplasm of brain .CBC Routine 04/09/2023 10:59 AM ADOLESCENT SPECIALIST Secondary malignant neoplasm of brain COMPLETE BLOOD COUNT W/ DIFFERENTIAL Routine 04/09/2023 10:59 AM ADOLESCENT SPECIALIST Secondary malignant neoplasm of brain MRI BRAIN WITH AND WITHOUT CONTRAST - FRAMELESS GAMMA KNIFE Routine 04/09/2023 8:55 AM ADOLESCENT SPECIALIST Secondary malignant neoplasm of brain MRI BRAIN W WO CONTRAST - ABTI Routine 02/14/2023 11:23 AM ADOLESCENT SPECIALIST Secondary malignant neoplasm of brain POC CREATININE Routine 02/14/2023 9:[address] CHEST ABDOMEN PELVIS W CONTRAST Routine [...] lung, TNM stage 4 <Unspecified side> after 11/01/2022 Results * (ABNORMAL) .CBC (10/08/2023 4:33 AM CDT) Only the most recent of40 resultswithin the time period is included. White Blood Cell 7.7 4.1 - 10.5 K/uL 10/08/2023 4:59 AM CDT [facility] Red Blood Cell 3.51(L) 3.99 - 5.46 M/uL 10/08/2023 4:59 AM CDT [facility] Hemoglobin 10.5(L) 12.2 - 15.3 g/dL 10/08/2023 4:59 AM CDT [facility] Hematocrit 32.8(L) 36.4 - 46.8 % 10/08/2023 4:59 AM CDT [facility] Mean Cell Volume 93 82 - 99 fL 10/08/2023 4:59 AM [facility] Mean Cell Hemoglobin 29.9 26.6 - 33.2 pg 10/08/2023 4:59 AM [facility] Mean Cell Hemoglobin Concentration 32.0 31.1 - 35.2 g/dL 10/08/2023 4:59 AM [facility] RDW-SD 48.8 37.5 - 49.7 fL 10/08/2023 4:59 AM [facility] Red Cell Diameter Width 14.3 11.6 - 15.5 % 10/08/2023 4:59 AM T [facility] Platelet 247 160 - 397 K/uL 10/08/2023 4:59 AM [facility] Mean Platelet Volume 10.2 9.1 - 12.6 fL 10/08/2023 4:59 AM [facility] INRBC 0.3(H) 0.0 - 0.1 /100 WBC 10/08/2023 4:59 AM [facility] Comment: The INRBC (instrument NRBC) value reflects the enumeration of nucleated red blood cells contained in a 200uL sample of whole blood analyzed by the instrument. This value may differ from the NRBC value reported in a manual differential, which is based on a 100 cell differential. Neutrophil % 65.6 43.2 - 72.7 % 10/08/2023 4:59 AM [facility] Lymphocyte % 23.6 16.8 - 46.2 % 10/08/2023 4:59 AM [facility] Monocyte % 7.4 5.1 - 12.5 % 10/08/2023 4:59 AM [facility] Eosinophil % 0.0(L) 0.4 - 6.3 % 10/08/2023 4:59 AM [facility] Basophil % 0.3 0.2 - 1.4 % 10/08/2023 4:59 AM [facility] IGRE % 3.1(H) 0.1 - 1.5 % 10/08/2023 4:59 AM [facility] Comment:The IGRE% includes M etamyelocytes, Myelocytes and Promyelocytes. Neutrophil Abs 5.06 1.95 - 7.25 K/uL 10/08/2023 4:59 AM CDT [facility] Lymphocyte Abs 1.82 1.01 - 3.24 K/uL 10/08/2023 4:59 AM CDT [facility] Monocyte Abs 0.57 0.24 - 0.85 K/uL 10/08/2023 4:59 AM CDT [facility] Eosinophil Abs 0.00(L) 0.02 - 0.50 K/uL 10/08/2023 4:59 AM CDT [facility] Basophil Abs 0.02 0.02 - 0.09 K/uL 10/08/2023 4:59 AM CDT [facility] IG Abs 0.24(H) 0.01 - 0.12 K/uL 10/08/2023 4:59 AM CDT [facility] Blood Peripheral blood specimen / Unknown Venipuncture / Unknown 10/08/2023 4:33 AM CDT 10/08/2023 4:47 AM CDT Tk Stevens APRN LAB BLOOD ORDERABL ES [facility] Unless otherwise noted, all lab tests performed by: Division of Pathology and Laboratory Medicine [address] [place] [id number] * (ABNORMAL) Comprehensive Metabolic Panel (10/08/2023 4:33 AM CDT) Only the most recent of23 resultswithin the time period is included. Bilirubin Total <0.3 0.0 - 1.2 mg/dL 10/08/2023 5:22 AM CDT [facility] Comment:Indocyanine Green (I CG) may cause falsely elevated bilirubin results. Total and direct bilirubin must not be measured from samples containing indocyanine green. False elevation of total bilirubin can be seen in patients with IgG concentrations above 28 g/L. eGFR 91 >=60 mL/min/1. 73 sq. m 10/08/2023 5:22 AM CDT [facility] Comment: The eGFRcr is calculated with the [...] - 8.3 gm/dL 10/08/2023 5:22 AM CDT [facility] Calcium Level Total 8.2 8.2 - 10.2 mg/dL 10/08/2023 5:22 AM CDT [facility] Alkaline Phosphatase 66 35 - 104 U/L 10/08/2023 5:22 AM CDT [facility] Albumin Level 3.5 3.5 - 5.2 gm/dL 10/08/2023 5:22 AM CDT [facility] AST 8 <=32 U/L 10/08/2023 5:22 AM CDT [facility] ALT 11 <=33 U/L 10/08/2023 5:22 AM CDT [facility] Sodium Level 141 136 - 145 mmol/L 10/08/2023 5:22 AM CDT [facility] Potassium Level 4.3 3.4 - 4.5 mmol/L 10/08/2023 5:22 AM CDT [facility] Chloride 108(H) 98 - 107 mmol/L 10/08/2023 5:22 AM CDT [facility] CO2 26 22 - 29 mmol/L 10/08/2023 5:22 AM CDT [facility] Anion Gap 7 4 - 14 mmol/L 10/08/2023 5:22 AM CDT [facility] Creatinine 0.79 0.51 - 0.95 mg/dL 10/08/2023 5:22 AM CDT [facility] BUN 33(H) 6 - 23 mg/dL 10/08/2023 5:22 AM CDT [facility] Glucose Level 91 70 - 99 mg/dL 10/08/2023 5:22 AM CDT [facility] Comment: Effective 10/13/15, the glucose reference intervals have been updated based on [place] Diabetes [employer] guidelines (Standards of Medical Care [...] Tk Stevens APRN LAB BLOOD ORDERABL ES Performing Organization Address City/[facility] Co de Phone Number [facility] Unless otherwise noted, all lab tests performed by: Division of Pathology and Laboratory Medicine [address] [place] [phone] * Phosphorus Level (10/08/2023 4:33 AM CDT) Only the most recent of35 resultswithin the time period is included. Phosphorus Level 4.3 2.5 - 4.5 mg/dL 10/08/2023 5:22 AM CDT [facility] Blood Peripheral blood specimen / Unknown Venipuncture / Unknown 10/08/2023 4:33 AM CDT 10/08/2023 4:47 AM CDT Michael Ko MD LAB BLOOD ORDERAB LES [facility] Unless otherwise noted, all lab tests performed by: Division of Pathology and Laboratory Medicine [address] [place] [phone] * Magnesium Level (10/08/2023 4:33 AM CDT) Only the most recent of35 resultswithin the time period is included. Magnesium Level 2.2 1.6 - 2.6 mg/dL 10/08/2023 5:22 AM CDT [facility] Blood Peripheral blood specimen / Unknown Venipuncture / Unknown 10/08/2023 4:33 AM CDT 10/08/2023 4:47 AM CDT Michael Ko MD LAB BLOOD ORDERAB LES [facility] Unless otherwise noted, all lab tests performed by: Division of Pathology and Laboratory Medicine [address] [place] [address] * MRI Brain with and without Contrast [...] present, and agree with the final report. 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 Urine Culture 10-50,000 CFU/mL Proteus mirabilis(A) 10/05/2023 8:35 AM CDT [facility] Urine Culture 10-50,000 CFU/mL Escherichia coli(A) 10/05/2023 8:35 AM CDT [facility] Urine Culture Arthrobacter cumminsii(A) 10/05/2023 8:35 AM CDT [facility] Comment: This species identification is not FDA [...] Farr MD MICROBIOLOGY - GENER AL ORDERABLES [facility] Unless otherwise noted, all lab tests performed by: Division of Pathology and Laboratory Medicine [address] [place] [phone] * (ABNORMAL) Urinalysis with Microscopic (10/01/2023 8:30 PM CDT) Urine Appearance Clear Clear 10/01/19 8:53 PM CDT [facility] Comment:This result was prev iously suppressed from the chart. Urine Color Straw Colorless, Straw, Yellow, Dark Yellow, Straw-Yellow 10/01/2023 8:53 PM CDT [facility] Comment:This result was prev iously suppressed from the chart. Urine Specific Gibson 1.021 1.003 - 1.035 10/01/2023 8:53 PM CDT [facility] Comment:This result was prev iously suppressed from the chart. Urine pH 6.5 5.0 - 8.0 10/01/2023 8:53 PM CDT [facility] Comment:This result was prev iously suppressed from the chart. Urine Glucose Negative Negative mg/dL 10/01/2023 8:53 PM CDT [facility] Comment:This result was prev iously suppressed from the chart. Urine Ketones Negative Negative mg/dL 10/01/2023 8:53 PM CDT [facility] Comment:This result was prev iously suppressed from the chart. Urine Blood Small(A) Negative 10/01/2023 8:53 PM CDT [facility] Comment:This result was prev iously suppressed from the chart. Urine Protein Negative Negative mg/dL 10/01/2023 8:53 PM CDT [facility] Comment:This result was prev iously suppressed from the chart. Urine Bilirubin Negative Negative 8:53 PM CDT [facility] Urine Urobilinogen Negative Negative 10/01/2023 8:53 PM CDT [facility] Urine Nitrite Negative Negative 10/01/2023 8:53 PM CDT [facility] Comment:This result was prev iously suppressed from the chart. Urine Leukocyte Esterase Negative Negative 10/01/2023 8:53 PM CDT [facility] Comment:This result was prev iously suppressed from the chart. Urine WBC <1 <=2 /HPF 10/01/2023 8:53 PM CDT [facility] Urine RBC 1 <=2 /HPF 10/01/2023 8:53 PM CDT [facility] Urine Mucous Not Seen Not Seen, Trace /HPF 10/01/2023 8:53 PM CDT [facility] Comment:This result was prev iously suppressed from the chart. Urine Bacteria Not Seen Not Seen /HPF 10/01/2023 8:53 PM CDT [facility] Comment:This result was prev iously suppressed from the chart. Urine Squamous Epithelial Cells OCC Not Seen, OCC, Rare /HPF 10/01/2023 8:53 PM CDT [facility] Comment:This result was prev iously suppressed from the chart. Urine (Urine Clean Catch) Non-blood Collection / Unknown 10/01/2023 8:30 PM CDT 10/01/2023 8:33 PM CDT Narrative [facility] - 10/01/2023 8:53 PM CDT Some reporting parameters within the Urinalysis test have changed due to the implementation of new instrumentation in the Main [place], allowing greater sensitivity of measurement. Urinalysis results reported by the [facility] using existing instrumentation, as well as Urinalysis testing performed manually or by back-up methodology at the main campus, will remain relatively unchanged. New reporting parameters and units will now be reported for all campuses. Erasmo Gamez MD URINE ORDERABLES [facility] Unless otherwise noted, all lab tests performed by: Division of Pathology and Laboratory Medicine [address] [place] [phone] * X-ray Chest 1 View (10/01/2023 12:28 [...] 2023, July 30, 2023. Chest CT the 2023. Technique: Frontal radiograph of the chest [...] 7.310 - 7.410 10/01/2023 12:19 PM CDT [facility] POC VB pCO2. 48.8 41.0 - 51.0 mmHg 10/01/2023 12:19 PM CDT [facility] POC VB pO2. 20 mmHg 10/01/2023 12:19 PM CDT [facility] POC VB TCO2 27 24 - 29 mmol/L 10/01/2023 12:19 PM CDT [facility] POC VB Bicarb 26.0 23.0 - 28.0 mmol/L 10/01/2023 12:19 PM CDT [facility] POC VB Base Excess 0 -2 - 3 mmol/L 10/01/2023 12:19 PM CDT [facility] POC VB O2 Sat 27 % 10/01/2023 12:19 PM CDT [facility] POC VB LAC 0.77(L) 0.90 - 1.70 mmol/L 10/01/2023 12:19 PM CDT [facility] POC FiO2 10/01/2023 12:19 PM CDT [facility] POC Sample Type Venous 10/01/2023 12:19 PM CDT [facility] Blood 10/01/2023 12:0 2 PM CDT 10/01/2023 12:19 PM CDT Narrative [facility] - 10/01/2023 12:19 PM CDT Method description: [...] Farr MD POCT ORDERABLES - DE VICE [facility] Unless otherwise noted, all lab tests performed by: Division of Pathology and Laboratory Medicine [address] [place] [phone] * Fractionated Bilirubin (10/01/2023 11:58 AM CDT) Only the most recent of4 resultswithin the time period is included. Bilirubin Direct 10/01/19 12:49 PM CDT [facility] Comment: Direct and indirect bilirubin will not be reported when Total bilirubin result is <0.3 mg/dL Indocyanine Green (ICG) may cause falsely elevated bilirubin results. Total and direct bilirubin must not be measured from samples containing indocyanine green. Bilirubin Indirect 2023 12:49 PM CDT [facility] Comment:Direct and indirect bilirubin will not be reported when Total bilirubin result is <0.3 mg/dL Bilirubin Total <0.3 0.0 - 1.2 mg/dL 10/01/2023 12:49 PM CDT [facility] Comment: Direct and indirect bilirubin will not [...] Cathy Ramirez MD LAB BLOOD ORDERABLE S [facility] Unless otherwise noted, all lab tests performed by: Division of Pathology and Laboratory Medicine [address] [place] [phone] * aPTT (10/01/2023 11:58 AM CDT) Only the most recent of3 resultswithin the time period is included. Activated PTT 32.2 24.1 - 35.5 second(s) 10/01/2023 12:38 PM CDT [facility] Blood Peripheral blood specimen / Unknown Venipuncture / Unknown 10/01/2023 11:58 AM CDT 10/01/2023 12:05 PM CDT Cathy Ramirez MD LAB BLOOD ORDERABLE S [facility] Unless otherwise noted, all lab tests performed by: Division of Pathology and Laboratory Medicine [address] [place] [phone] * Blood Culture (10/01/2023 11:58 AM CDT) Only the most recent of6 resultswithin the time period is included. Blood Culture No Growth. 10/06/2023 1:01 PM CDT [facility] Blood Peripheral blood specimen / Unknown Venipuncture / Unknown 10/01/2023 11:58 AM CDT 10/01/2023 12:05 PM CDT Cathy Ramirez MD MICROBIOLOGY - GENE RAL ORDERABLES Performing Organization Address City/[facility]/ZIP Co de Phone Number [facility] Unless otherwise noted, all lab tests performed by: Division of Pathology and Laboratory Medicine [address] [place] [phone] * Prothrombin Time with INR (10/01/2023 11:58 AM CDT) Only the most recent of3 resultswithin the time period is included. Prothrombin Time 13.3 11.9 - 14.5 second(s) 10/01/2023 12:38 PM CDT [facility] International Normalization Ratio 1.01 0.87 - 1.12 10/01/2023 12:38 PM CDT [facility] Blood Peripheral blood specimen / Unknown Venipuncture / Unknown 10/01/2023 11:58 AM CDT 10/01/2023 12:05 PM CDT Cathy Ramirez MD LAB BLOOD ORDERABLE S [facility] Unless otherwise noted, all lab tests performed by: Division of Pathology and Laboratory Medicine [address] [place] [phone] * (ABNORMAL) LDH (10/01/2023 11:58 AM CDT) Only the most recent of3 resultswithin the time period is included. LDH 223(H) 135 - 214 U/L 10/01/2023 12:49 PM CDT [facility] Blood Peripheral blood specimen / Unknown Venipuncture / Unknown 10/01/2023 11:58 AM CDT 10/01/2023 12:05 PM CDT Narrative [facility] - 10/01/2023 12:49 PM CDT Results greater than 1651 U/L may not be reliable due to matrix effect with extended dilution as it exceeds the frame assembler's recommended limit. Caution should be exercised when interpreting such values and done in conjunction with clinical context. Cathy Ramirez MD LAB BLOOD ORDERABLE S [facility] Unless otherwise noted, all lab tests performed by: Division of Pathology and Laboratory Medicine [address] [place] [phone] * Ammonia Level (10/01/2023 11:58 AM CDT) Only the most recent of3 resultswithin the time period is included. Ammonia Level 15 11 - 51 mcmol/L 10/01/2023 12:34 PM CDT [facility] Blood Peripheral blood specimen / Unknown Venipuncture / Unknown 10/01/2023 11:58 AM CDT 10/01/2023 12:05 PM CDT Cathy Ramirez MD LAB BLOOD ORDERABLE S [facility] Unless otherwise noted, all lab tests performed by: Division of Pathology and Laboratory Medicine [address] [place] [phone] * CT Head without Contrast (10/01/2023 11:37 [...] resultswithin the time period is included. Pathologist [facility] [place] Glucose Screen 90 70 - 99 mg/dL 10/01/2023 11:19 AM CDT [facility] POC Sample Type Capillary 10/01/2023 11:19 AM CDT [facility] Blood 10/01/2023 11:1 7 AM CDT 10/01/2023 11:19 AM CDT Narrative [facility] - 10/01/2023 11:19 AM CDT Capillary blood [...] Farr MD POCT ORDERABLES - DE VICE [facility] Unless otherwise noted, all lab tests performed by: Division of Pathology and Laboratory Medicine [address] [place] [address] [phone] * (ABNORMAL) Basic Metabolic Panel- Total Calcium (08/11/2023 5:02 AM CDT) Only the most recent of17 resultswithin the time period is included. [facility] eGFR 103 >=60 mL/min/1.7 3 sq. m 08/11/2023 5:40 AM CDT [facility] Comment: The eGFRcr is calculated with the [...] - 10.2 mg/dL 08/11/2023 5:40 AM CDT [facility] Sodium Level 141 136 - 145 mmol/L 08/11/2023 5:40 AM CDT [facility] Potassium Level 3.8 3.4 - 4.5 mmol/L 08/11/2023 5:40 AM CDT [facility] Chloride 106 98 - 107 mmol/L 08/11/2023 5:40 AM CDT [facility] CO2 24 22 - 29 mmol/L 08/11/2023 5:40 AM CDT [facility] Anion Gap 11 4 - 14 mmol/L 08/11/2023 5:40 AM CDT [facility] Creatinine 0.71 0.51 - 0.95 mg/dL 08/11/2023 5:40 AM CDT [facility] BUN 11 6 - 23 mg/dL 08/11/2023 5:40 AM T [facility] Glucose Level 92 70 - 99 mg/dL 08/11/2023 5:40 AM T [facility] Comment: Effective 10/13/15, the glucose reference intervals have been updated based on [place] [employer] guidelines (Standards of Medical Care [...] CDT Asya Egan MD LAB BLOOD ORDERABLES [facility] Unless otherwise noted, all lab tests performed by: Division of Pathology and Laboratory Medicine [facility] [place] [address] * (ABNORMAL) Differential (08/11/2023 5:02 AM CDT) Only the most recent of5 resultswithin the time period is included. Total Cells 114 08/11/2023 9:56 AM CDT [facility] Manual Neutrophil % 73.0(H) 43.2 - 72.7 % 08/11/2023 9:56 AM CDT [facility] Comment:The Neutrophil count includes Bands. Manual Lymphocyte % 18.0 16.8 - 46.2 % 08/11/2023 9:56 AM CDT [facility] Manual Monocyte % 4.0(L) 5.1 - 12.5 % 08/11/2023 9:56 AM CDT [facility] Manual Eosinophil % 5.0 0.4 - 6.3 % 08/11/2023 9:56 AM CDT [facility] Metamyelocyte % 9:56 AM CDT [facility] Comment:The Metamyelocyte co unt includes Myelocytes. Manual Neutrophil Abs 3.94 1.95 - 7.25 K/uL 08/11/2023 9:56 AM CDT [facility] Manual Lymphocyte Abs 0.97(L) 1.01 - 3.24 K/uL 08/11/2023 9:56 AM CDT [facility] Manual Monocyte Abs 0.22(L) 0.24 - 0.85 K/uL 08/11/2023 9:56 AM CDT [facility] Manual Eosinophil Abs 0.27 0.02 - 0.50 K/uL 08/11/2023 9:56 AM CDT [facility] RBC Morphology PRESENT 08/11/2023 9:56 AM CDT [facility] Ovalocyte Present(A) (none) 08/11/2023 9:56 AM CDT [facility] Tear Drop Present(A) (none) 08/11/2023 9:56 AM CDT [facility] Slide Comment SEE NOTE 08/11/2023 9:56 AM CDT [facility] Comment:Platelet morphology normal. Blood Peripheral blood specimen / Unknown Venipuncture / Unknown 08/11/2023 5:02 AM CDT 08/11/2023 5:10 AM CDT Asya Egan MD LAB BLOOD ORDERABLES [facility] Unless otherwise noted, all lab tests performed by: Division of Pathology and Laboratory Medicine [address] [place] [address] [phone] * Gastrointestinal Multiplex PCR Panel (08/04/2023 3:24 PM CDT) Only the most recent of3 resultswithin the time period is included. Campylobacter Not Detected Not Detected 08/04/2023 6:07 PM CDT [facility] Plesiomonas shigelloides Not Detected Not Detected 08/04/2023 6:07 PM CDT [facility] Salmonella Not Detected Not Detected 08/04/2023 6:07 PM CDT [facility] Vibrio Not Detected Not Detected 08/04/2023 6:07 PM CDT [facility] Vibrio cholerae Not Detected Not Detected 08/04/2023 6:07 PM CDT [facility] Yersinia enterocolitica Not Detected Not Detected 08/04/2023 6:07 PM CDT [facility] Enteroaggregative E. coli (EAEC) Not Detected Not Detected 08/04/2023 6:07 PM CDT [facility] Enteropathogenic E. coli (EPEC) Not Detected Not Detected 08/04/2023 6:07 PM CDT [facility] Enterotoxigenic E. coli (ETEC) LT/ST Not Detected Not Detected 08/04/2023 6:07 PM CDT [facility] Shiga-like toxin-producing E. coli (STEC) Stx1/Stx2 Not Detected Not Detected 08/04/2023 6:07 PM CDT [facility] E. coli O157 N/A Not Detected 08/04/2023 6:07 PM CDT [facility] Shigella/Enteroinvas lyndsay E. coli (EIEC) Not Detected Not Detected 08/04/2023 6:07 PM CDT [facility] Cryptosporidium Not Detected Not Detected 08/04/2023 6:07 PM CDT [facility] Cyclospora cayetanensis Not Detected Not Detected 08/04/2023 6:07 PM CDT [facility] Entamoeba histolytica Not Detected Not Detected 08/04/2023 6:07 PM CDT [facility] Giardia lamblia Not Detected Not Detected 08/04/2023 6:07 PM CDT [facility] Adenovirus F40/41 Not Detected Not Detected 08/04/2023 6:07 PM CDT [facility] Astrovirus Not Detected Not Detected 08/04/2023 6:07 PM CDT [facility] Norovirus GI/GII Not Detected Not Detected 08/04/2023 6:07 PM CDT [facility] Rotavirus A Not Detected Not Detected 08/04/2023 6:07 PM CDT [facility] Sapovirus (I, II, IV, V) Not Detected Not Detected 08/04/2023 6:07 PM CDT [facility] C. difficile Refer to separate C. difficile DNA Detection assay for results. 08/04/2023 6:07 PM CDT [facility] Stool Rectum structure / Unknown Non-blood Collection / Unknown 08/04/2023 3:24 PM CDT 08/04/2023 4:27 PM CDT Narrative [facility] - 08/04/2023 6:07 PM CDT The assay is a qualitative multiplex PCR assay to aid in the diagnosis of gastrointestinal infection through simultaneous qualitative detection and identification of multiple GI pathogens in diarrheal specimens collected in [employer] transport media obtained from individuals suspected of gastrointestinal infections. Testing is performed using the [employer] Gastrointestinal (GI) Panel on the Voolgo System. The following organisms are identified using the [employer] GI Panel: Campylobacter spp., Plesiomonas shigelloides, Salmonella [...] verified by the microbiology laboratory at the [facility]. Results must be interpreted within the context of all relevant clinical and laboratory findings. Assay should not be used for monitoring response to therapy. Dany Bonilla MD MICROBIOLOGY - [facility] ORDERABLES [facility] Unless otherwise noted, all lab tests performed by: Division of Pathology and Laboratory Medicine [address] [place] [address] [phone] * C. difficile DNA Detection (08/04/2023 3:24 PM CDT) Only the most recent of4 resultswithin the time period is included. C. difficile - DNA Negative Negative 08/05/2023 10:34 AM CDT [facility] C. difficile - EIA Test Not Performed Negative 08/05/2023 10:34 AM CDT [facility] C. difficile - Interpretation C. difficile DNA detection was negative making C. difficile infection highly unlikely in this patient. EIA not performed. 08/05/2023 10:34 AM CDT [facility] Stool Rectum structure / Unknown Non-blood Collection / Unknown 08/04/2023 3:24 PM CDT 08/04/2023 4:27 PM CDT Narrative [facility] - 08/05/2023 10:34 AM CDT Qualitative detection of C. difficile DNA performed using helicase-dependent amplification of a conserved region of a pathogenicity locus (PaLoc) in toxigenic C. difficile strains. It is an FDA-approved assay performed on the Quikey Instrument from [employer] and is intended for use as an [...] rapid immunoassay using the FDA-approved ImmunoCard by [employer]. Patients positive for BOTH C. difficile DNA [...] verified by the microbiology laboratory at the [facility]. Results must be interpreted within the context of all relevant clinical and laboratory findings. Dany Bonilla MD MICROBIOLOGY - [facility] ORDERABLES [facility] Unless otherwise noted, all lab tests performed by: Division of Pathology and Laboratory Medicine [address] [place] [address] [phone] * (ABNORMAL) Procalcitonin (08/04/2023 4:19 AM CDT) Only the most recent of3 resultswithin the time period is included. Procalcitonin 0.48(H) <=0.08 ng/mL 08/04/2023 10:15 AM CDT [facility] Blood Peripheral blood specimen / Unknown Venipuncture / Unknown 08/04/2023 4:19 AM CDT 08/04/2023 5:16 AM CDT Narrative [facility] - 08/04/2023 10:15 AM CDT Procalcitonin > [...] with extended dilution as it exceeds the frame assembler's recommended limit. Caution should be exercised when interpreting such values and done in conjunction with clinical context. Dany Bonilla MD LAB BLOOD ORDERABLES [facility] Unless otherwise noted, all lab tests performed by: Division of Pathology and Laboratory Medicine [address] [place] [address] [phone] * (ABNORMAL) Hepatic Function Panel (08/04/2023 4:19 AM CDT) Only the most recent of2 resultswithin the time period is included. Bilirubin Total <0.3 0.0 - 1.2 mg/dL 08/04/2023 11:14 AM CDT [facility] Comment: Direct and indirect bilirubin will not be reported when Total bilirubin result is <0.3 mg/dL Indocyanine Green (ICG) may cause falsely elevated bilirubin results. Total and direct bilirubin must not be measured from samples containing indocyanine green. False elevation of total bilirubin can be seen in patients with IgG concentrations above 28 g/L. Bilirubin Direct 08/04/19 11:14 AM CDT [facility] Comment: Direct and indirect bilirubin will not be reported when Total bilirubin result is <0.3 mg/dL Indocyanine Green (ICG) may cause falsely elevated bilirubin results. Total and direct bilirubin must not be measured from samples containing indocyanine green. Bilirubin Indirect 2023 11:14 AM CDT [facility] Comment:Direct and indirect bilirubin will not be reported when Total bilirubin result is <0.3 mg/dL Tot Protein 6.3(L) 6.4 - 8.3 gm/dL 08/04/2023 11:14 AM CDT [facility] Alkaline Phosphatase 93 35 - 104 U/L 08/04/2023 11:14 AM CDT [facility] Albumin Level 3.0(L) 3.5 - 5.2 gm/dL 08/04/2023 11:14 AM CDT [facility] AST 14 <=32 U/L 08/04/2023 11:14 AM CDT [facility] ALT 6 <=33 U/L 08/04/2023 11:14 AM CDT [facility] Blood Peripheral blood specimen / Unknown Venipuncture / Unknown 08/04/2023 4:19 AM CDT 08/04/2023 5:16 AM CDT Dany Bonilla MD LAB BLOOD ORDERABLES [facility] Unless otherwise noted, all lab tests performed by: Division of Pathology and Laboratory Medicine [address] [place] [address] [phone] * Respiratory Multiplex PCR Panel, Nasopharyngeal Swab (08/03/2023 11:06 AM CDT) Adenovirus Not Detected Not Detected 08/03/2023 2:43 PM CDT [facility] Coronavirus 229E Not Detected Not Detected 08/03/2023 2:43 PM CDT [facility] Coronavirus HKU1 Not Detected Not Detected 08/03/2023 2:43 PM CDT [facility] Coronavirus NL63 Not Detected Not Detected 08/03/2023 2:43 PM CDT [facility] Coronavirus OC43 Not Detected Not Detected 08/03/2023 2:43 PM CDT [facility] COVID-19 (SARS-CoV-2) Not Detected Not Detected 08/03/2023 2:43 PM CDT [facility] Human Metapneumovirus Not Detected Not Detected 08/03/2023 2:43 PM CDT [facility] Human Rhinovirus/Enterov irus Not Detected Not Detected 08/03/2023 2:43 PM CDT [facility] Influenza A Not Detected Not Detected 08/03/2023 2:43 PM CDT [facility] Influenza A H1 Not Detected Not Detected 08/03/2023 2:43 PM CDT [facility] Influenza A H1 2009 Not Detected Not Detected 08/03/2023 2:43 PM CDT [facility] Influenza A H3 Not Detected Not Detected 08/03/2023 2:43 PM CDT [facility] Influenza B Not Detected Not Detected 08/03/2023 2:43 PM CDT [facility] Parainfluenza Virus 1 Not Detected Not Detected 08/03/2023 2:43 PM CDT [facility] Parainfluenza Virus 2 Not Detected Not Detected 08/03/2023 2:43 PM CDT [facility] Parainfluenza Virus 3 Not Detected Not Detected 08/03/2023 2:43 PM CDT [facility] Parainfluenza Virus 4 Not Detected Not Detected 08/03/2023 2:43 PM CDT [facility] Respiratory Syncytial Virus Not Detected Not Detected 08/03/2023 2:43 PM CDT [facility] Bordetella parapertussis Not Detected Not Detected 08/03/2023 2:43 PM CDT [facility] Bordetella pertussis Not Detected Not Detected 08/03/2023 2:43 PM CDT [facility] Chlamydophila pneumoniae Not Detected Not Detected 08/03/2023 2:43 PM CDT [facility] Mycoplasma pneumoniae Not Detected Not Detected 08/03/2023 2:43 PM CDT [facility] Swab Nasopharyngeal structure / Unknown Non-blood Collection / Unknown 08/03/2023 11:06 AM CDT 08/03/2023 11:26 AM CDT Narrative [facility] - 08/03/2023 2:43 PM CDT The assay is a qualitative multiplex PCR assay to aid in the diagnosis of respiratory pathogens through simultaneous qualitative detection and identification of multiple pathogens directly from nasopharyngeal swabs (BOLT LABELER) from individuals with respiratory symptoms. Testing is performed using the [employer] Respiratory Panel 2.1 (RP2.1) on the [employer] System. The following organisms are identified using the [employer] RP 2.1 Panel: Adenovirus, Human Coronavirus (229E, [...] verified by the microbiology laboratory at the [facility] (CLIA Accreditation # [id number] and CAP Accreditation # [id number]). Results must be interpreted within the context of all relevant clinical and laboratory findings. Assay should not be used for monitoring response to therapy. Dany Bonilla MD MICROBIOLOGY - [facility] GONZALES ORDERABLES [facility] Unless otherwise noted, all lab tests performed by: Division of Pathology and Laboratory Medicine [address] [place] [address] [phone] * (ABNORMAL) Urinalysis with Reflex Culture (08/02/2023 5:30 PM CDT) Urine Appearance Cloudy(A) Clear 08/02/19 24 5:50 PM CDT [facility] Comment:This result was prev iously suppressed from the chart. Urine Color Yellow Colorless, Straw, Yellow, Dark Yellow, Straw-Yellow 08/02/2023 5:50 PM CDT [facility] Comment:This result was prev iously suppressed from the chart. Urine Specific Gibson 1.011 1.003 - 1.035 08/02/2023 5:50 PM CDT [facility] Comment:This result was prev iously suppressed from the chart. Urine pH 6.0 5.0 - 8.0 08/02/2023 5:50 PM CDT [facility] Comment:This result was prev iously suppressed from the chart. Urine Glucose Negative Negative mg/dL 08/02/2023 5:50 PM CDT [facility] Comment:This result was prev iously suppressed from the chart. Urine Ketones 20(A) Negative mg/dL 08/02/2023 5:50 PM CDT [facility] Comment:This result was prev iously suppressed from the chart. Urine Blood Small(A) Negative 08/02/2023 5:50 PM CDT [facility] Comment:This result was prev iously suppressed from the chart. Urine Protein 30(A) Negative mg/dL 08/02/2023 5:50 PM CDT [facility] Comment:This result was prev iously suppressed from the chart. Urine Bilirubin Negative Negative 5:50 PM CDT [facility] Urine Urobilinogen Negative Negative 08/02/2023 5:50 PM CDT [facility] Urine Nitrite Negative Negative 08/02/2023 5:50 PM CDT [facility] Comment:This result was prev iously suppressed from the chart. Urine Leukocyte Esterase Large(A) Negative 08/02/2023 5:50 PM CDT [facility] Comment:This result was prev iously suppressed from the chart. Urine Mucous Not Seen Not Seen, Trace /HPF 08/02/2023 5:50 PM CDT [facility] Comment:This result was prev iously suppressed from the chart. Urine Bacteria 1+(A) Not Seen /HPF 08/02/2023 5:50 PM CDT [facility] Comment:This result was prev iously suppressed from the chart. Urine Squamous Epithelial Cells Not Seen Not Seen, OCC, Rare /HPF 08/02/2023 5:50 PM CDT [facility] Comment:This result was prev iously suppressed from the chart. Urine WBC 44(H) <=2 /HPF 08/02/2023 5:50 PM CDT [facility] Urine RBC 7(H) <=2 /HPF 08/02/2023 5:50 PM CDT [facility] Urine Voided urine specimen / Unknown Non-blood Collection / Unknown 08/02/2023 5:30 PM CDT 08/02/2023 5:36 PM CDT Narrative [facility] - 08/02/2023 5:50 PM CDT Some reporting parameters within the Urinalysis test have changed due to the implementation of new instrumentation in the Main [place], allowing greater sensitivity of measurement. Urinalysis results reported by the [facility] using existing instrumentation, as well as Urinalysis testing performed manually or by back-up methodology at the main [place], will remain relatively unchanged. New reporting parameters and units will now be reported for all campuses. Sujata Grant MD URINE ORDERABLES [facility] Unless otherwise noted, all lab tests performed by: Division of Pathology and Laboratory Medicine [address] [place] [address] [phone] * EEG (08/01/2023 8:54 PM CDT) Narrative Brooklyn Mckeon MD - 08/01/2023 8:54 PM CDT Brooklyn Mckeon MD 08/02/2023 10:42 AM EEG REPORT Patient: Zari Posadas Age: 52 y.o. Consult Service: Neuro-Oncology Consult Date: August 01, 2023 Inventory Checker: BROOKLYN MCKEON MD CLINICAL HISTORY This is [...] 19 <=19 ng/L 07/31/2023 12:23 AM CDT [facility] Blood Peripheral blood specimen / Unknown Venipuncture / Unknown 07/30/2023 11:52 PM CDT 07/30/2023 11:55 PM CDT Narrative [facility] - 07/31/2023 12:23 AM CDT Reference range [...] MD LAB BLOOD ORDERABLES Performing Organization Address City/[facility]/ZIP Co de Phone Number [facility] Unless otherwise noted, all lab tests performed by: Division of Pathology and Laboratory Medicine [address] [place] [address] [phone] * (ABNORMAL) Urinalysis Microscopic Exam (07/30/2023 11:12 PM CDT) Only the most recent of5 resultswithin the time period is included. Urine Mucous Not Seen Not Seen, Trace /HPF 07/30/2023 11:31 PM CDT [facility] Urine Bacteria Not Seen Not Seen /HPF 07/30/2023 11:31 PM CDT [facility] Urine Squamous Epithelial Cells OCC Not Seen, OCC, Rare /HPF 07/30/2023 11:31 PM CDT [facility] Urine WBC 69(H) <=2 /HPF 07/30/2023 11:31 PM CDT [facility] Urine RBC 2 <=2 /HPF 07/30/2023 11:31 PM CDT [facility] Urine Voided urine specimen / Unknown Non-blood Collection / Unknown 07/30/2023 11:12 PM CDT 07/30/2023 11:17 PM CDT Michelle Metzger MD LAB BLOOD ORDERABLES Performing Organization Address City/[facility]/ZIP Co de Phone Number [facility] Unless otherwise noted, all lab tests performed by: Division of Pathology and Laboratory Medicine [address] [place] [address] [phone] * (ABNORMAL) Urinalysis w/Microscopic if Indicated (07/30/2023 11:12 PM CDT) Only the most recent of5 resultswithin the time period is included. Urine Appearance Clear Clear 07/30/19 11:29 PM CDT [facility] Urine Color Straw Colorless, Straw, Yellow, Dark Yellow, Straw-Yello w 07/30/2023 11:29 PM CDT [facility] Urine Specific Gibson 1.011 1.003 - 1.035 07/30/2023 11:29 PM CDT [facility] Urine pH 6.0 5.0 - 8.0 07/30/2023 11:29 PM CDT [facility] Urine Glucose Negative Negative mg/dL 07/30/2023 11:29 PM CDT [facility] Urine Ketones Negative Negative mg/dL 07/30/2023 11:29 PM CDT [facility] Urine Blood Small(A) Negative 07/30/2023 11:29 PM CDT [facility] Urine Protein 30(A) Negative mg/dL 07/30/2023 11:29 PM CDT [facility] Urine Bilirubin Negative Negative 11:29 PM CDT [facility] Urine Urobilinogen Negative Negative 07/30/2023 11:29 PM CDT [facility] Urine Nitrite Negative Negative 07/30/2023 11:29 PM CDT [facility] Urine Leukocyte Esterase Moderate(A) Negative 07/30/2023 11:29 PM CDT [facility] Urine Voided urine specimen / Unknown Non-blood Collection / Unknown 07/30/2023 11:12 PM CDT 07/30/2023 11:17 PM CDT Narrative [facility] - 07/30/2023 11:29 PM CDT Some reporting parameters within the Urinalysis test have changed due to the implementation of new instrumentation in the Main [place], allowing greater sensitivity of measurement. Urinalysis results reported by the [facility] using existing instrumentation, as well as Urinalysis testing performed manually or by back-up methodology at the main campus, will remain relatively unchanged. New reporting parameters and units will now be reported for all campuses. Michelle Metzger MD URINE ORDERABLES Performing Organization Address City/State/[facility] de Phone Number [facility] Unless otherwise noted, all lab tests performed by: Division of Pathology and Laboratory Medicine [address] [place] [address] [phone] * (ABNORMAL) Cardiac Panel (07/30/2023 8:55 PM CDT) Creatine Kinase 53 26 - 192 U/L 07/30/2023 9:36 PM CDT [facility] CKMB <2.0 <=5.3 ng/mL 07/30/2023 9:36 PM CDT [facility] Troponin T 22(H) <=19 ng/L 07/30/2023 9:36 PM CDT [facility] Comment: < 19 ng/L Suggest retest at [...] 8:55 PM CDT 07/30/2023 9:12 PM CDT Mihcelle Metzger MD LAB BLOOD ORDERABLES Performing Organization Address [facility] Co de Phone Number [facility] Unless otherwise noted, all lab tests performed by: Division of Pathology and Laboratory Medicine [address] [place] [address] [phone] * (ABNORMAL) Potassium Level (07/28/2023 7:10 PM CDT) Potassium Level 2.9(L) 3.4 - 4.5 mmol/L 07/28/2023 7:44 PM CDT [facility] Blood Peripheral blood specimen / Unknown Venipuncture / Unknown 07/28/2023 7:10 PM CDT 07/28/2023 7:13 PM CDT Narrative [facility] - 07/28/2023 7:44 PM CDT Reference range established based on adult population Tammy Archuleta PA-C LAB BLOOD ORDERABLES Performing Organization Address City/[facility]/ZIP Co de Phone Number [facility] Unless otherwise noted, all lab tests performed by: Division of Pathology and Laboratory Medicine [address] [place] [address] [phone] * (ABNORMAL) VBG (07/27/2023 10:29 AM CDT) pH Venous 7.33 7.32 - 7.43 07/27/2023 10:36 AM CDT [facility] P CO2 Venous 40.5(L) 41.0 - 51.0 mmHg 07/27/2023 10:36 AM CDT [facility] P O2 Venous 17 mmHg 07/27/2023 10:36 AM CDT [facility] Bicarbonate Venous 21 21 - 28 mmol/L 07/27/2023 10:36 AM CDT [facility] Base Excess Venous -5(L) -2 - 3 mmol/L 07/27/2023 10:36 AM CDT [facility] Oxygen Saturation Venous 24 % 07/27/2023 10:36 AM CDT [facility] Oxygen FLOW Rate/ FiO2 07/27/2023 10:36 AM CDT [facility] O2 Therapy 07/27/2023 10:36 AM CDT [facility] Blood Peripheral blood specimen / Unknown Venipuncture / Unknown 07/27/2023 10:29 AM CDT 07/27/2023 10:34 AM CDT Tammy Archuleta PA-C LAB BLOOD ORDERABLES [facility] Unless otherwise noted, all lab tests performed by: Division of Pathology and Laboratory Medicine [address] [place] [address] [phone] * (ABNORMAL) Lactoferrin Detection (07/25/2023 10:28 PM CDT) Only the most recent of2 resultswithin the time period is included. Pathologist [facility] [place] Lactoferrin - Interpretation Positive( A) Negative 07/26/2023 8:02 AM CDT [facility] Comment:Assay positive for l actoferrin indicating inflammatory cells present in fecal specimen. Recommend clinical correlation and further testing to identify cause of inflammation. Stool Rectum structure / Unknown Non-blood Collection / Unknown 07/25/2023 10:28 PM CDT 07/25/2023 11:16 PM CDT Narrative [facility] - 07/26/2023 8:02 AM CDT Testing is [...] verified by the microbiology laboratory at the [facility]. Results must be interpreted within the context of all relevant clinical and laboratory findings. Tammy Archuleta PA-C MICROBIOLOGY - [facility] AL ORDERABLES [facility] Unless otherwise noted, all lab tests performed by: Division of Pathology and Laboratory Medicine [address] [place] [address] [phone] * (ABNORMAL) Calprotectin, Stool (07/25/2023 10:21 PM CDT) Only the most recent of2 resultswithin the time period is included. Pathologist [facility] [place] Calprotectin [facility] 89.3(H) <50.0 (Normal) mcg/g 07/30/2023 11:40 AM CDT [facility] Comment: Interpretation: Borderline (50.0-120 mcg/g) Test Performed by: [address] [address] Will Call Order Clerk: Shad Metzger M.D. Ph.D.; CLIA# [id number] Stool Rectum structure / Unknown Non-blood Collection [...] - 192 U/L 07/23/2023 10:35 AM CDT [facility] Blood Peripheral blood specimen / Unknown Venipuncture / Unknown 07/23/2023 9:47 AM CDT 07/23/2023 9:47 AM CDT Dalia E Husam MEZA LAB BLOOD ORDERABL ES Performing Organization Address [facility] de Phone Number [facility] Unless otherwise noted, all lab tests performed by: Division of Pathology and Laboratory Medicine [address] [place] [address] [phone] * Hemoglobin A1c (07/05/2023 5:51 AM CDT) Hemoglobin A1c 5.3 4.3 - 5.6 % 07/05/2023 8:26 AM CDT [facility] Blood Peripheral blood specimen / Unknown Venipuncture / Unknown 07/05/2023 5:51 AM CDT 07/05/2023 6:18 AM CDT Narrative [facility] - 07/05/2023 8:26 AM CDT HbA1c values >=6.5% are diagnostic of diabetes mellitus. Diagnosis should be confirmed by repeat testing. Therapeutic Action suggested: >8.0% HbA1c; Goal of therapy: <7.0% HbA1c Monica Albertojillian MEZA LAB BLOOD ORDERABLES Performing Organization Address City/[facility]/ZIP Co de Phone Number [facility] Unless otherwise noted, all lab tests performed by: Division of Pathology and Laboratory Medicine [address] [place] [phone] * EEG (07/04/2023 7:57 PM CDT) Narrative Brooklyn Mckeon MD - 07/04/2023 7:57 PM CDT Brooklyn Mckeon MD 07/04/2023 8:01 PM EEG REPORT Patient: Zari Posadas Age: 52 y.o. Consult Service: Neuro-Oncology Consult Date: July 04, 2023 Inventory Checker: BROOKLYN MCKEON MD CLINICAL HISTORY This is 52 y.o. year-old with metastatic lung cancer to the brain. REQUESTING PHYSICIAN Dr. Kalpana Cannon TECHNIQUE Inpatient bedside study STATE Awake/Sleep MEDS Kera FINDINGS The background is better organized on [...] seizures occurred during the recording. Saloni Man LIMEHOUSE WORKER,CLINICAL STATISTICS MANAGER NEUROLOGY ORDERA BLES * Historical ABORh (07/03/2023 6:54 PM CDT) ABORh A POS 07/03/2023 6:55 PM CDT [facility] Blood Peripheral blood specimen / Unknown 07/03/2023 6:54 PM CDT 07/03/2023 6:54 PM CDT Zuri Farr MD BLOOD BANK TEST DOTTIE SESAY [facility] [id number] [place] [address] * Type and Screen (07/03/2023 3:34 PM CDT) ABORh A POS 07/03/2023 2:51 PM CDT [facility] ABSC Negative 07/03/2023 2:51 PM CDT [facility] Clot Expiration 07/06/2023 23:59 07/03/2023 2:51 PM CDT [facility] Historical Record Check Complete 07/03/2023 2:51 PM CDT [facility] Blood Peripheral blood specimen / Unknown Venipuncture / Unknown 07/03/2023 3:34 PM CDT 07/03/2023 6:32 PM CDT Zuri Farr MD BLOOD BANK TEST ORDNery SESAY [facility] [address] [place] [address] [id number] [place] [address] * CKMB (07/03/2023 3:34 PM CDT) CKMB 3.9 <=5.3 ng/mL 07/03/2023 7:04 PM CDT [facility] Blood Peripheral blood specimen / Unknown Venipuncture / Unknown 07/03/2023 3:34 PM CDT 07/03/2023 6:32 PM CDT Abhijit Farr MD LAB BLOOD ORDERABLES Performing Organization Address City/[facility]/ZIP Co de Phone Number [facility] Unless otherwise noted, all lab tests performed by: Division of Pathology and Laboratory Medicine [address] [place] [address] [phone] * (ABNORMAL) Transferrin with TIBC (06/30/2023 4:26 AM CDT) Transferrin 167(L) 200 - 360 mg/dL 06/30/2023 7:41 AM CDT [facility] Total Iron Binding Capacity 234(L) 250 - 450 mcg/dL 06/30/2023 7:41 AM CDT [facility] Blood Peripheral blood specimen / Unknown Venipuncture / Unknown 06/30/2023 4:26 AM CDT 06/30/2023 4:41 AM CDT Isma Santoyo MD LAB BLOOD ORDERABL ES [facility] Unless otherwise noted, all lab tests performed by: Division of Pathology and Laboratory Medicine [address] [place] [address] 42693 * Iron Level (06/30/2023 4:26 AM CDT) Iron Level 43 37 - 145 mcg/dL 06/30/2023 7:41 AM CDT [facility] Is patient fasting? 06/30/2023 7:41 AM CDT [facility] Blood Peripheral blood specimen / Unknown Venipuncture / Unknown 06/30/2023 4:26 AM CDT 06/30/2023 4:41 AM CDT Isma Santoyo MD LAB BLOOD ORDERABL ES Performing Organization Address City/[facility]/ZIP Co de Phone Number [facility] Unless otherwise noted, all lab tests performed by: Division of Pathology and Laboratory Medicine [address] [place] [address] [phone] * Ferritin Level (06/30/2023 4:26 AM CDT) Ferritin Level 18 13 - 150 ng/mL 06/30/2023 7:41 AM CDT [facility] Blood Peripheral blood specimen / Unknown Venipuncture / Unknown 06/30/2023 4:26 AM CDT 06/30/2023 4:41 AM CDT Narrative [facility] - 06/30/2023 7:41 AM CDT Reference range established for age 17 - 60 years Isma Santoyo MD LAB BLOOD ORDERABL ES [facility] Unless otherwise noted, all lab tests performed by: Division of Pathology and Laboratory Medicine [address] [place] [address] 42590 * VB Lactate (06/27/2023 5:59 PM CDT) Venous Lactate 0.6 0.5 - 1.6 mmol/L 06/27/2023 6:08 PM CDT [facility] Oxygen FLOW Rate/ FiO2 06/27/2023 6:08 PM CDT [facility] O2 Therapy NONE 06/27/2023 6:08 PM CDT [facility] Blood Peripheral blood specimen / Unknown Venipuncture / Unknown 06/27/2023 5:59 PM CDT 06/27/2023 6:07 PM CDT Amanda Pearson MD LAB BLOOD ORDERABLES [facility] Unless otherwise noted, all lab tests performed by: Division of Pathology and Laboratory Medicine [address] [place] [address] [phone] * (ABNORMAL) ESR (06/27/2023 5:59 PM CDT) Sedimentation Rate 104(H) <=30 mm/hr 2023 7:27 PM CDT [facility] Blood Peripheral blood specimen / Unknown Venipuncture / Unknown 06/27/2023 5:59 PM CDT 06/27/2023 6:04 PM CDT Amanda Pearson MD LAB BLOOD ORDERABLES [facility] Unless otherwise noted, all lab tests performed by: Division of Pathology and Laboratory Medicine [address] [place] [address] [phone] * CRP (06/27/2023 5:59 PM CDT) CRP (C Reactive Protein) 13.81 mg/L 06/27/2023 7:02 PM CDT [facility] Blood Peripheral blood specimen / Unknown Venipuncture / Unknown 06/27/2023 5:59 PM CDT 06/27/2023 6:04 PM CDT Narrative [facility] - 06/27/2023 7:02 PM CDT Adult Reference ranges for HS CRP assay are as follows: Reference ranges when used to assess cardiac risk: <1.00 mg/L Low cardiovascular risk 1.00-3.00 mg/L Average cardiovascular risk >3.00 mg/L High cardiovascular risk Reference ranges when used to assess inflammatory responses: Less than or equal to 10.00 mg/L. Amanda Pearson MD LAB BLOOD ORDERABLES [facility] Unless otherwise noted, all lab tests performed by: Division of Pathology and Laboratory Medicine [address] [place] [address] [phone] * (ABNORMAL) Lipid panel (04/18/2023 2:50 PM ADOLESCENT SPECIALIST) Cholesterol Total 276(H) <=199 mg/dL 04/18/2023 4:02 PM ADOLESCENT SPECIALIST [facility] Comment: ATP III Classification of Total Cholesterol - Primary Target of Therapy (in mg/dL): <200 Desirable 200-239 Borderline high >=240 High Triglyceride 99 <=149 mg/dL 04/18/2023 4:02 PM [facility] Comment: ATP III Classification of Serum Triglycerides Primary Target of Therapy (in mg/dL): <150 Normal 150-199 Borderline high 200-499 High >=500 Very high Non-fasting triglycerides >200 mg/dL may be followed up with a fasting Lipid Panel. Calculated LDL-C may be falsely decreased when non-fasting triglycerides >200 mg/dL. HDL Cholesterol 95 >=40 mg/dL 04/18/2023 4:02 PM ADOLESCENT SPECIALIST [facility] LDL Cholesterol 161(H) <=100 mg/dL 04/18/2023 4:02 PM [facility] Comment: ATP III Classification of LDL Cholesterol Primary Target of Therapy (in mg/dL): <100 Optimal 100-129 Near optimal/above optimal 130-159 Borderline high 160-189 High >=190 Very high Very Low Density Lipoprotein 20 mg/dL 04/18/2023 4:02 PM ADOLESCENT SPECIALIST [facility] Is patient fasting? No 04/18/2023 4:02 PM [facility] [place] [place] Comment:last meal longer ray n than 4 hrs prior Blood Peripheral blood specimen / Unknown Venipuncture / Unknown 04/18/2023 2:50 PM ADOLESCENT SPECIALIST 04/18/2023 2:52 PM ADOLESCENT SPECIALIST Sindi Casiano MD LAB BLOOD ORDERABLES [facility] Unless otherwise noted, all lab tests performed by: Division of Pathology and Laboratory Medicine [address] [place] [address] [facility] Unless otherwise noted, all lab tests performed by: Division of Pathology and Laboratory Medicine [address] [place] [address] [phone] * (ABNORMAL) POC Creatinine (04/16/2023 4:39 PM ADOLESCENT SPECIALIST) Only the most recent of2 resultswithin the time period is included. POC Creatinine 1.2 0.6 - 1.3 mg/dL 04/16/2023 4:41 PM ADOLESCENT SPECIALIST [facility] Comment:Medications, especia lly hydroxyurea or supplements, such as ascorbate, can interfere with test results causing a falsely and significantly higher result than expected. If a problem is suspected with a patient's result, a sample should be sent to the laboratory for confirmatory testing. POC eGFR 55(L) >=60 mL/min/1.7 3 sq. m 04/16/2023 4:41 PM ADOLESCENT SPECIALIST [facility] Comment: The eGFRcr is calculated with the [...] criteria for CKD. Blood 04/16/2023 4:39 PM ADOLESCENT SPECIALIST 04/16/2023 4:41 PM ADOLESCENT SPECIALIST Narrative [facility] - 04/16/2023 4:41 PM ADOLESCENT SPECIALIST Method description: The i-STAT is an analyzer [...] Dalia Weiner SUSANA POCT ORDERABLES - DEVICE [facility] Unless otherwise noted, all lab tests performed by: Division of Pathology and Laboratory Medicine [address] [place] [address] [phone] * MRI Brain with and without Contrast - Frameless Gamma Knife (04/09/2023 8:55 AM ADOLESCENT SPECIALIST) Anatomical Region Laterality Modality Head Magnetic Resonan ce 04/09/2023 10:1 7 AM ADOLESCENT SPECIALIST Impressions 04/09/2023 10:38 AM ADOLESCENT SPECIALIST No new metastasis or leptomeningeal disease. Several lesions demonstrate interval progression with stability of many other enhancing lesions. ACTIONABLE ITEMS/RECOMMENDATIONS: None. Narrative 04/09/2023 10:38 AM ADOLESCENT SPECIALIST FULL RESULT: Examination: MRI BRAIN WITH AND [...] lesions. ACTIONABLE ITEMS/RECOMMENDATIONS: None. Saira Carrasquillo APRN [facility] MRI ORDERABLES * MRI Brain with and without Contrast - ABTI (02/14/2023 11:23 AM ADOLESCENT SPECIALIST) Anatomical Region Laterality Modality Head Magnetic Resonan ce 02/17/2023 3:26 PM ADOLESCENT SPECIALIST Impressions 02/17/2023 3:53 PM ADOLESCENT SPECIALIST 1. 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 2. Left perfusion abnormalities expected for the relatively growing and enhancing right periatrial enhancing lesion, to be followed for active metastasis. 3. Other small enhancing lesions are stable. ACTIONABLE ITEMS/RECOMMENDATIONS: None. Narrative 02/17/2023 3:53 PM ADOLESCENT SPECIALIST FULL RESULT: Examination: MRI BRAIN W WO [...] (ABNORMAL) .Serum Creatinine (11/29/2022 10:34 AM CDT) Creatinine 1.38(H) 0.51 - 0.95 mg/dL [facility] Blood 11/29/2022 10:3 4 AM CDT 11/29/2022 10:48 AM CDT Dalia Weiner APRN LAB BLOOD ORDERABL ES [facility] Unless otherwise noted, all lab tests performed by: Division of Pathology and Laboratory Medicine [address] [place] [address] [phone] * (ABNORMAL) Glomerular Filtration Rate (11/29/2022 10:34 AM CDT) eGFR 46(L) >=60 mL/min/1.7 3 sq. m [facility] Comment: The eGFRcr is calculated with the [...] LAB BLOOD ORDERABL ES Performing Organization Address City/[facility]/ZIP Co de Phone Number [facility] Unless otherwise noted, all lab tests performed by: Division of Pathology and Laboratory Medicine [address] [place] [address] [phone] * BUN (11/29/2022 10:34 AM CDT) BUN 13 6 - 23 mg/dL [facility] Blood 11/29/2022 10:3 4 AM CDT 11/29/2022 10:48 AM CDT Dalia Weiner APRN LAB BLOOD ORDERABL ES Performing Organization Address [facility] Co de Phone Number [facility] Unless otherwise noted, all lab tests performed by: Division of Pathology and Laboratory Medicine [address] [place] [address] [phone] * ALT (11/29/2022 10:34 AM CDT) ALT 7 <=33 U/L [facility] Blood 11/29/2022 10:3 4 AM CDT 11/29/2022 10:48 AM CDT Dalia Weiner APRN LAB BLOOD ORDERABL ES Performing Organization Address [facility] [place] de Phone Number [facility] Unless otherwise noted, all lab tests performed by: Division of Pathology and Laboratory Medicine [address] [place] [address] [phone] * Aspartate Aminotransferase (11/29/2022 10:34 AM CDT) AST 15 <=32 U/L [facility] Blood 11/29/2022 10:3 4 AM CDT 11/29/2022 10:48 AM CDT Dalia Weiner APRN LAB BLOOD ORDERABL ES Performing Organization Address [facility] [place] de Phone Number [facility] Unless otherwise noted, all lab tests performed by: Division of Pathology and Laboratory Medicine [address] [place] [address] [phone] * Total Protein (11/29/2022 10:34 AM CDT) Total Protein 6.8 6.4 - 8.3 g/dL [facility] Blood 11/29/2022 10:3 4 AM CDT 11/29/2022 10:48 AM CDT Dalia Weiner APRN LAB BLOOD ORDERABL ES Performing Organization Address [facility] [place] de Phone Number [facility] Unless otherwise noted, all lab tests performed by: Division of Pathology and Laboratory Medicine [address] [place] [address] [phone] * Alkaline Phosphatase (11/29/2022 10:34 AM CDT) Alk Phos 76 35 - 104 U/L [facility] Blood 11/29/2022 10:3 4 AM CDT 11/29/2022 10:48 AM CDT Dalia Weiner APRN LAB BLOOD ORDERABL ES Performing Organization Address [facility] [place] de Phone Number [facility] Unless otherwise noted, all lab tests performed by: Division of Pathology and Laboratory Medicine [address] [place] [address] [phone] * (ABNORMAL) Glucose Level (11/29/2022 10:34 AM CDT) Glucose Level 61(L) 70 - 99 mg/dL [facility] Comment: Effective 10/13/15, the glucose reference intervals have been updated based on [place] [employer] guidelines (Standards of Medical Care [...] LAB BLOOD ORDERABL ES Performing Organization Address City/[facility] Co de Phone Number [facility] Unless otherwise noted, all lab tests performed by: Division of Pathology and Laboratory Medicine [address] [place] [address] [phone] * Calcium Level (11/29/2022 10:34 AM CDT) Calcium Lvl 9.2 8.4 - 10.2 mg/dL [facility] Blood 11/29/2022 10:3 4 AM CDT 11/29/2022 10:48 AM CDT Dalia Weiner APRN LAB BLOOD ORDERABL ES Performing Organization Address [facility] [place] de Phone Number [facility] Unless otherwise noted, all lab tests performed by: Division of Pathology and Laboratory Medicine [address] [place] [address] [phone] * Albumin Level (11/29/2022 10:34 AM CDT) Albumin Lvl 4.1 3.5 - 5.2 gm/dL [facility] Blood 11/29/2022 10:3 4 AM CDT 11/29/2022 10:48 AM CDT Dalia Weiner APRN LAB BLOOD ORDERABL ES Performing Organization Address [facility] [place] de Phone Number [facility] Unless otherwise noted, all lab tests performed by: Division of Pathology and Laboratory Medicine [address] [place] [address] [phone] * (ABNORMAL) Electrolyte Panel (11/29/2022 10:34 AM CDT) Sodium Lvl 140 136 - 145 mEq/L [facility] Potassium Lvl 3.6 3.5 - 5.1 mEq/L [facility] Chloride 108(H) 98 - 107 mEq/L [facility] CO2 24 22 - 29 mEq/L [facility] Anion Gap 8 4 - 14 mEq/L [facility] Blood 11/29/2022 10:3 4 AM CDT 11/29/2022 10:48 AM CDT Dalia Weiner LIMEHOUSE WORKER LAB BLOOD ORDERABL ES [facility] Unless otherwise noted, all lab tests performed by: Division of Pathology and Laboratory Medicine [address] [place] [address] [phone] after 11/01/2022 Advance Directives Documents on File Type Date Recorded 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 PCP - General Thoracic Medicine 11/24/20 Ajith Fink MD [address] [place] [address] [phone] [email or web address] Consulting Physician Nephrology 08/12/21 Annette Kang MD [address] [place] [address] [phone] [email or web address] Consulting Physician Gastroenterology, Hepatology and Nutrition 12/03/20 Frannie Emery MD [address] [place] [address] [phone] [email or web address] Consulting Physician Neurosurgery 05/21/23 Rajinder English APRN [address] [place] [address] [phone] [email or web address] Nurse Practitioner Neurosurgery 05/21/23
--- NOTE | 2023-11-06 18:01 | EKG ---
Test Date: 2023-11-01 Test Time: 23:20:02 Cherry Sorter: MEASUREMENT RESULTS: Intervals: Rate: 81 VA: 160 QRSD: 82 QT: 386 QTc: 448 [place]: P: 48 VA: 160 QRS: 8 T: 63 INTERPRETIVE STATEMENTS: Normal sinus rhythm Normal ECG Compared to ECG 10/21/2023 23:02:55 No significant changes Electronically Signed On 11-06-23 17:51:37 CDT by Goran Kaur
== END 2023-11-02 07:55 | disposition home or self-care (01) ==
LOC: ER 22:59
DX: S09.90XA Unspecified injury of head, initial encounter (principal); W18.30XA Fall on same level, unspecified, initial encounter; Y93.E1 Activity, personal bathing and showering; Y92.002 Bathroom of unspecified non-institutional (private) residence as the place of occurrence of the external cause; C34.90 Malignant neoplasm of unspecified part of unspecified bronchus or lung; C71.9 Malignant neoplasm of brain, unspecified
CPT/HCPCS: 93005; 85025; 80048; 36415; 83735; 85610; 85379; 84484; 70450; 72125; 71275; 71045; 99285; Q9967

== ENCOUNTER 2024-01-04 09:03 | Emergency (ER) | payer OTHER ==
--- OUTSIDE RECORDS SUMMARY | 2024-01-04 09:10 | XMS REPORT | Clinical Summary ---
Author Name Unknown Organization [facility] Address [address] [place] [address] Care Team Providers Care Lithographed Plate Inspector Name Role Phone Luisana Lucio MD Unavailable [phone] Roseann Jensen MD Unavailable [phone] Sindi Casiano MD Primary Care Provider [phone] Ajith Fink MD Unavailable Annette Kang MD Unavailable [phone] Frannie Emery MD Unavailable [phone] Rajinder English APRN Unavailable Allergies Active Allergy [...] mouth daily. 30 capsule 07/29/19 24 Active ondansetron (ZOFRAN) 8 mg tabletIndications: Non-small cell carcinoma of lung, TNM stage 4 <Unspecified side> Take 1 tablet (8 mg) by mouth every 8 (eight) hours as needed for nausea or vomiting. 30 tablet 08/11/19 24 Active nystatin (MYCOSTATIN) 100,000 units/g creamIndications:R josé miguel of groin Apply topically to affected area(s) twice daily. 30 g 08/11/19 24 Active topical paste menthol-white petrolatum-zinc oxide (REMEDY CALAZIME) 0.44-20.6 % psteIndications:Ra sh of groin Apply 1 application topically to affected area(s) as needed (Groin rash). 113 g 1 08/11/19 24 Active mesalamine (LIALDA) 1.[address] tablet Take 2 tablets (2,400 mg) by mouth daily with breakfast. Active rosuvastatin (CRESTOR) 10 mg tablet Take 1 tablet (10 mg) by mouth at bedtime. Active levETIRAcetam (KEPPRA) 1000 mg tabletIndications: Non-small [...] tablet (1,000 mg) by mouth twice daily. 180 tablet 11/12/19 24 Active midodrine (PROAMATINE) 5 mg tabletIndications: Hypotension, not otherwise specified Take 1 tablet (5 mg) by mouth 3 (three) times a day before meals. 270 tablet 11/12/19 24 Active pantoprazole (PROTONIX) 40 mg EC tabletIndications: Nausea with vomiting Take 1 tablet (40 mg) by mouth every morning before breakfast. 90 tablet 11/12/19 24 Active venlafaxine (EFFEXOR-XR) 150 mg 24 hr capsule TAKE 1 CAPSULE (150 MG) BY MOUTH DAILY WITH FOOD 01/20/20 024 Discontinued(St op Taking at Discharge) ceritinib (Zykadia) 150 mg tabletIndications: Malignant neoplasm of unspecified part of unspecified bronchus or lung Take 2 tablets (300 mg) by mouth daily. Take with food. 60 tablet 5 07/28/19 22 024 Discontinued(St op Taking at Discharge) propranolol (INDERAL) 10 mg tablet 11/09/19 024 Discontinued(Re order) ceritinib (ZYKADIA) 150 mg [...] 23 024 Discontinued(St op Taking at Discharge) eszopiclone (LUNESTA) 2 mg tablet Take 1 tablet (2 mg) by mouth at bedtime. PRN 11/17/19 23 Discontinued(St op Taking at Discharge) buPROPion (WELLBUTRIN XL) 150 mg 24 hr tablet Take 1 tablet (150 mg) by mouth daily. Discontinued(St op Taking at Discharge) potassium chloride (MICRO-K) 10 mEq CR capsule Take 1 capsule (10 mEq) by mouth 3 (three) times a day. Discontinued gabapentin (NEURONTIN) 300 mg capsule Take 1 capsule (300 mg) by mouth 3 (three) times a day. Discontinued(St op Taking at Discharge) potassium chloride (Klor-Con M20) 20 mEq tabletIndications: Hypokalemia Take 2 tablets (40 mEq) by mouth daily for 90 days. 180 tablet 03/26/19 24 Discontinued lorlatinib (Lorbrena) 100 mg tabletIndications: Malignant neoplasm of unspecified part of unspecified bronchus or lung Take 1 tablet by mouth daily 30 tablet 3 04/18/19 Discontinued(St op Taking at Discharge) ondansetron (ZOFRAN) 8 mg tabletIndications: Non-small cell carcinoma of lung, TNM stage 4 <Unspecified side> Take 1 tablet (8 mg) by mouth every 8 (eight) hours as needed for nausea or vomiting. 30 tablet 05/16/19 Discontinued(Re order) diphenoxylate-atro pine (LomotiL) 2.5 mg-0.025 mg per tabletIndications: Malignant neoplasm of unspecified part of unspecified bronchus or lung,Diarrhea Take 1-2 tablets by mouth every 6 (six) hours as needed for diarrhea. Not to exceed 8 tablets per day 60 tablet 3 05/17/19 24 Discontinued(St op Taking at Discharge) rosuvastatin (Crestor) [...] Hold if no BM 60 capsule 07/01/19 Discontinued(St op Taking at Discharge) mesalamine (LIALDA) [...] daily with breakfast. 30 tablet 07/07/19 24 Discontinued(Re order) vancomycin (FIRVANQ) 50 mg/mL oral [...] 30 tablet 07/29/19 24 024 Discontinued(Re order) levETIRAcetam (KEPPRA) 1000 mg tabletIndications: Non-small cell [...] days. 60 tablet 2 08/11/19 24 024 Discontinued(Re order) pantoprazole (PROTONIX) 40 mg EC tabletIndications: Nausea with vomiting Take 1 tablet (40 mg) by mouth every morning before breakfast for 90 days. 30 tablet 2 08/12/19 24 024 Discontinued(Re order) gabapentin (NEURONTIN) 300 mg capsule Take 1 capsule (300 mg) by mouth at bedtime. 024 Discontinued(Re order) propranolol (INDERAL) 10 mg tablet Take 1 tablet (10 mg) by mouth twice daily. 024 Discontinued(St op Taking at Discharge) dexAMETHasone (DECADRON) 4 mg tabletIndications: Other encephalopathy [...] 3 days. 3 tablet 10/08/19 24 024 gabapentin (NEURONTIN) 300 mg capsuleIndications :Other low back pain Take 1 capsule (300 mg) by mouth at bedtime. 30 capsule 10/08/19 24 024 Discontinued(St op Taking at Discharge) dexAMETHasone (DECADRON) 2 mg tabletIndications: Metastatic malignant neoplasm to brain Take 1 tablet (2 mg) by mouth daily with breakfast for 14 days. 14 tablet 11/13/19 24 024 midodrine (PROAMATINE) 5 mg tabletIndications: Hypotension, not otherwise specified Take 1 tablet (5 mg) by mouth 3 (three) times a day before meals for 90 days. 270 tablet 11/12/19 24 024 Discontinued(Re order) pantoprazole (PROTONIX) 40 mg EC tabletIndications: Nausea with vomiting Take 1 tablet (40 mg) by mouth every morning before breakfast for 90 days. 90 tablet 11/12/19 24 024 Discontinued(Re order) levETIRAcetam (KEPPRA) 1000 mg tabletIndications: Non-small cell [...] by mouth twice daily for 90 days. 180 tablet 11/12/19 24 024 Discontinued(Re order) Active Problems Problem Noted Date Diagnosed Date Clostridium difficile diarrhea 11/12/2023 Dementia due to metastatic malignant neoplasm to brain 11/09/2023 Metastatic malignant neoplasm to brain Urinary incontinence 11/06/2023 Fecal incontinence 11/06/2023 Candidal intertrigo 11/05/2023 Cystitis 11/05/2023 Altered mental status 11/04/2023 Adenocarcinoma, NOS of lower lobe, lung <Right> 10/02/2023 Other encephalopathy 10/02/2023 Acute encephalopathy 08/07/2023 Sepsis 07/31/2023 Leukocytosis 07/31/2023 Hypotension 07/31/2023 Clostridium difficile colitis 07/26/2023 Confusion 07/25/2023 Visual hallucination 07/25/2023 Diarrhea 07/19/2023 Malignant neoplasm of unspecified part of bronch us or lung 07/19/2023 Seizure 06/30/2023 Anemia of chronic disease 06/30/2023 Auditory hallucination 06/27/2023 Subdural hematoma 05/14/2022 Overview: Added automatically from request for surgery [id number] Lymphocytic colitis 10/20/2021 Acute renal failure syndrome [...] Overview: Added automatically from request for surgery [id number] Chronic diarrhea 12/03/2020 Overview: Added automatically from request for surgery [id number] Lesion of brain 02/03/2020 Overview: Added automatically from request for surgery [id number] Hypokalemia 01/31/2020 Disorder of fluid AND/OR electrolyte 01/31/2020 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 disease 0 Cerebral edema 01/30/2020 Secondary malignant neoplasm of brain 01/30/2020 Aphasia 01/30/2020 Depressive disorder 01/30/2018 Non-small cell carcinoma of lung, TNM stage 4 Dysphagia 07/31/2016 Choking 07/31/2016 Thyroid cancer 07/31/2016 Overview: Mandatory [facility] ICD-10 2020 UPDATE Other psychological or physi pito stress, not elsewhere classified Malignant neoplasm related fatigue Abnormal gait due to muscle weakness Rhabdomyolysis Encounters Date Type Department Care Team Description 11/12/2023 Orders Only [facility] [address] [place] [address] Main [facility], 7th [place] [address] Avbovvolodymyr, Leanderuoandrae, HARDWARE DESIGNER Secondary malignant neoplasm of brain (Primary Dx) 11/07/2023 Orders Only [facility] - Neuro Oncology [address] [place] [address] Main dg, 7th [place] [address] Saloni Man, HARDWARE DESIGNER,TAPER/FINISHER Secondary malignant neoplasm of unspecified lung (Primary Dx); Other seizure; Altered mental status; 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 11/06/2023 12:06 PM CDT Anesthesia Event [facility] [address] [place] [address] Main dg, 3rd [place] [address] Nedra Oscar MD 11/04/2023 Travel 11/03/2023 11:34 PM CDT - 11/12/2023 6:03 PM CDT Hospital Encounter MAIN [address] [place] [address] Abhijit Farr MD Gao, Lucy C, MD Mohammed, MD Mellissa Haider, Son V., Dany Courtney MD Altered mental status (Primary Dx); Candidal intertrigo; Non-small cell carcinoma of lung, TNM stage 4; Secondary malignant neoplasm of brain; Cerebral edema; Nausea with vomiting; Clostridium difficile diarrhea; Non-small cell carcinoma of lung, TNM stage 4 <Unspecified side>; Malignant neoplasm of unspecified part of unspecified bronchus or lung; Clostridium difficile colitis; Visual hallucination; Anemia of chronic disease; Seizure, not otherwise specified; Auditory hallucination; Subdural hematoma <Subsequent>; Malignant neoplasm related fatigue; Lesion of brain; Chronic diarrhea; Generalized muscle weakness; Other low back pain; Lymphocytic colitis; Thyroid cancer; Hypokalemia; Metastatic malignant neoplasm to brain; Hypotension, not otherwise specified Discharge Disposition: Home 11/03/2023 Travel 10/30/2023 Orders Only [facility] Main [facility], 1st [place] [address] Sammi Byrne, SUSANA Secondary malignant neoplasm of brain (Primary Dx) 10/25/2023 4:30 PM CDT POEM Appointments [facility] [address] [place] [address] Main [facility], 6th [place] [address] Sindi Casiano MD 10/24/2023 11:59 PM CDT Anesthesia Event [facility] [address] [place] [address] Main [facility], 6th [place] [address] Francoise Michael RN 10/16/2023 Telephone [facility] [address] [facility] Main [facility], 7th [place] [address] Elizabeth Morelos MA 10/08/2023 Orders Only [facility] Neurosurgery [address] [place] [address] Main [facility], 7th [place] [address] Van Russo, HARDWARE DESIGNER Secondary malignant neoplasm of brain (Primary Dx) 10/06/2023 Orders Only [facility] - Neuro Oncology [address] [place] [address] Main Bldg, 7th [place] [address] Carmita Castorena MD 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 (Primary Dx) 10/05/2023 12:45 PM CDT Anesthesia Event [facility] [address] [place] [address] Main Bldg, 3rd [place] [address] Aramis Nicholas MD Shaik, Ghouse B, HARDWARE DESIGNER 10/02/2023 Travel 10/01/2023 11:17 AM CDT - 10/08/2023 5:04 PM CDT Hospital Encounter MAIN [address] [place] [address] Zuri Farr MD Taylor, MD Maikel Bean Norman, MD Parhizgar, Alireza, MD Aphasia (Primary Dx); Other encephalopathy; Adenocarcinoma, NOS of lower lobe, lung <Right>; Urinary tract infection, not otherwise specified; Other low back pain; Malignant neoplasm of unspecified part of unspecified bronchus or lung Discharge Disposition: Home with Home-Health or Physical Therapy 10/01/2023 Travel 09/10/2023 Orders Only Abdominal Imaging [address] [place], [place] [id number] Padmini Morelos, HARDWARE DESIGNER 09/10/2023 Orders Only [facility] [address] [place] [address] Main Bldg, 1st [place] [address] Vicky Denise, HARDWARE DESIGNER Secondary malignant neoplasm of brain (Primary Dx) 09/10/2023 Documentation [facility] [address] [place] [address] Main Bldg, 1st [place] [address] Vicky Denise, HARDWARE DESIGNER 09/05/2023 Orders Only [facility] - Medical Oncology [address] [place] [address] Main dg, 9th Floor [address] [place] [id number] Dalia Weiner APRN Non-small cell carcinoma of lung, TNM stage 4 <Unspecified side> (Primary Dx) 09/04/2023 11:00 AM CDT Telemedicine [facility] - Neurosurgery [address] [place] [address] Main [facility], 7th [place] [address] Frannie Emery MD Secondary malignant neoplasm of brain (Primary Dx) 09/03/2023 11:59 PM CDT Anesthesia Event [facility] [address] [place] [address] Main [facility], 3rd Floor [address]ator [address] [place] [id number] Lima Zavala MD 08/31/2023 4:49 PM CDT Anesthesia Event [facility] [address] [place] [address], 6th [place] [address] Francoise Michael RN 08/31/2023 4:30 PM CDT POEM Appointments [facility] [address] [place] [address], 6th Floor [address] [place] [id number] Sindi Casiano MD 08/29/2023 [facility] - Medical Oncology [address] [place] [address], 9th [place] [address] Lorenza Taylor, RN 08/24/2023 Case Management Case Management [address] [place] [address] Ashlyn Hernandez RN 08/23/2023 [facility] Thoracic Center - Medical Oncology [address] [place] [address], 9th [place] [address] Dalia Weiner, HARDWARE DESIGNER Non-small cell carcinoma of lung, TNM stage 4 <Unspecified side> (Primary Dx) 08/23/2023 Case Management Case Management [address] [place], [place] [id number] Ashlyn Hernandez, RN 08/08/2023 10:12 AM CDT Anesthesia Event [facility] [address] [place] [address] Main [facility], 3rd [place] [address] Nedra Oscar MD Thomas, Cini, HARDWARE DESIGNER,TAPER/FINISHER 07/31/2023 Travel 07/30/2023 8:38 PM CDT - 08/11/2023 2:13 PM CDT Hospital Encounter MAIN [address] [place] [address] Shadia Clement MD Gao, Lucy C, MD [...] [facility] - Gastroenterology, Hepatology & Nutrition [address] [place] [address] Main dg, 7th [place] [address] Mounika Caballero, HARDWARE DESIGNER 07/30/2023 Case Management Case Management [address] [place] [address] Johnie Velasco RN 07/27/2023 Orders Only Clinical Pharmacy [address] [place] [address] Main dg, 2nd [place] [address] Jonathan Mohr Carri 07/26/2023 9:54 AM CDT Anesthesia Event [facility] [address] [place] [address] Main dg, 3rd [place] [address] Elisa Reyes CRNA 07/26/2023 Orders Only [facility] - Neuro Oncology [address] [facility], 7th [place] [address] Suzi Dias DO Seizure, not otherwise specified (Primary Dx) 07/25/2023 Travel 07/24/2023 8:53 PM CDT - 07/29/2023 5:11 PM CDT Hospital Encounter MAIN [address] [place] [address] Shadia Clement MD Gao, Lucy C, MD [...] Travel 07/24/2023 Case Management Case Management [address] [place] [address] Johnie Velasco RN 07/23/2023 10:45 AM CDT Ancillary Procedure CT Imaging [address] [facility], 7th [place] [address] Dalia Weiner APRN Non-small cell carcinoma of lung, TNM stage 4 <Unspecified side> 07/23/2023 9:15 AM CDT - 07/23/2023 11:59 PM CDT Hospital Encounter [facility] [address] [place] [address] Dalia Weiner APRN Non-small cell carcinoma of lung, TNM stage 4 <Unspecified side> Discharge Disposition: Home 07/20/2023 Orders Only [facility] - Gastroenterology, Hepatology & Nutrition [address] [place] [address], 7th [place] [address] Mounika Caballero APRN Diarrhea (Primary Dx); Lymphocytic colitis 07/20/2023 Travel 07/19/2023 8:00 AM CDT Telemedicine [facility] - Gastroenterology, Hepatology & Nutrition [address] [place] [address], 7th [place] [address] Mounika Caballero APRN Lymphocytic colitis (Primary Dx); Diarrhea 07/19/2023 Prep for Surgery [facility] - Gastroenterology, Hepatology & Nutrition [address] [place] [address], 7th [place] [address] Mounika Caballero APRN Lymphocytic colitis (Primary Dx); Diarrhea; Malignant neoplasm of unspecified part of unspecified bronchus or lung 07/18/2023 Case Management Case Management [address] [place] [address] Johnie Velasco, RN 07/17/2023 Telephone Colorectal Center - Colon and Rectal Surgery [address] [place] [address], 7th [place] [address] Chika Pastrana MA 07/17/2023 Orders Only [facility] - Medical Oncology [address] [place] [address], 9th [place] [address] Dalia Weiner APRN Non-small cell carcinoma of lung, TNM stage 4 <Unspecified side> (Primary Dx) 07/16/2023 Case Management Case Management [address] [place] [address] Johnie Velasco, RN 07/12/2023 Telephone Case Management [address] [place] [address] Johnie Velasco, RASHMI 07/12/2023 Telephone Case Management [address] [place] [address] Johnie Velasco, RN 07/11/2023 Orders Only [facility] - Gastroenterology, Hepatology & Nutrition [address] [place] [address], 7th [place] [address] Muonika Caballero APRN Lymphocytic colitis (Primary Dx) 07/09/2023 Case Management Case Management [address] [place] [address] Johnie Velasco, RASHMI 07/05/2023 Orders Only Neuroradiology [address] [place] [address] Gilles Beatty MD 07/03/2023 3:02 PM CDT - 07/07/2023 6:40 PM CDT Hospital Encounter MAIN [address] [place] [address] Abhijit Farr MD Musunuru, Tejo, MD Franco [...] 07/03/2023 Telephone [facility] - Medical Oncology [address] [place] [address], 9th [place] [address] Ildefonso Donaldson MA 07/03/2023 Telephone [facility] - Neurosurgery [address] [facility] Main Bldg, 7th [place] [address] Yumiko Briones RN 06/30/2023 Orders Only [facility] - Neuro Oncology [facility] Main Bldg, 7th [place] [address] Shae Cosme MD Secondary malignant neoplasm of brain (Primary Dx) 06/29/2023 2:08 PM CDT Anesthesia Event [facility] [address] [place] [address] Main Bldg, 3rd [place] [address] Asim Ontiveros DO Thomas, Nina, APRN 06/27/2023 5:31 PM CDT - 07/01/2023 6:33 PM CDT Hospital Encounter MAIN [address] [place] [address] Kalpana William MD Wechsler, Adriana, MD Yeung, Sai-Ching, MD Musunuru, Tejo, MD Etchegaray-Langly, Mikel, MD Auditory hallucination (Primary Dx); Secondary malignant neoplasm of brain; Non-small cell carcinoma of lung, TNM stage 4; Poor balance; Depressive disorder; Chronic diarrhea; Subdural hematoma <Subsequent>; Iron deficiency anemia, not otherwise specified Discharge Disposition: Home 06/27/2023 Travel 06/22/2023 Orders Only [facility] - Medical Oncology [address] [place] [address] Main dg, 9th Floor [address] [place] [phone] Dalia Weiner APRN Non-small cell carcinoma of lung, TNM stage 4 <Unspecified side> (Primary Dx); Hyperlipidemia, not otherwise specified; Hypokalemia 06/18/2023 Orders Only Thoracic [place] - Medical Oncology [address] [place] [address] Main dg, 9th [place] [address] Dalia Weiner, HARDWARE DESIGNER Malignant neoplasm of unspecified part of unspecified bronchus or lung (Primary Dx) 06/12/2023 Telephone [facility] - Medical Oncology [address] [place] [address] Main Bldg, 9th [place] [address] Alex Bo MA 06/08/2023 12:30 PM CDT Telemedicine [facility] - Neurosurgery [facility] Main Bldg, 7th [place] [address] Mark Batista MD Ferguson, Sherise D., MD Secondary malignant neoplasm of brain 06/05/2023 Orders Only Neuroradiology [address] [place] [address] Joslyn Sy MD 06/05/2023 Orders Only [facility] [address] [place] [address] Main dg, 1st [place] [address] Saira Carrasquillo APRN Secondary malignant neoplasm of brain (Primary Dx) 06/04/2023 1:44 PM CDT - 06/04/2023 11:59 PM CDT Hospital Encounter [facility] [address] [place] [address] Main dg, 1st [place] [address] Bree Calderón MD Secondary malignant neoplasm of brain (Primary Dx) Discharge Disposition: Home 06/04/2023 11:26 AM CDT Anesthesia Event [facility] [address] [place] [address] Main Bldg, 3rd [place] [address] Darius Zelaya MD Kwok, Cindy, CRNA 06/04/2023 10:15 AM CDT - 06/04/2023 1:43 PM CDT Hospital Encounter [facility] [address] [place] [address] Main Bldg, 3rd [place] [address] Saira Carrasquillo APRN Potylchansky, Yury, MD Kwok, Cindy, CRNA Secondary malignant neoplasm of brain Discharge Disposition: Home 06/04/2023 Travel 06/01/2023 11:59 PM CDT Anesthesia Event [facility] [address] [place] [address] Main dg, 6th [place] [address] Rahel Smallwood APRN 06/01/2023 4:30 PM CDT POEM Appointments [facility] [address] [facility] Main Bldg, 6th [place] [address] Sindi Casiano MD 05/17/2023 Orders Only [facility] - Medical Oncology [address] Main Bldg, 9th [place] [address] Dalia Weiner APRN Malignant neoplasm of unspecified part of unspecified bronchus or lung (Primary Dx) 05/17/2023 Orders Only [facility] - Medical Oncology [address] Main Bldg, 9th [place] [address] Dalia Weiner APRN Malignant neoplasm of unspecified part of unspecified bronchus or lung; Diarrhea 05/16/2023 Refill [facility] - Medical Oncology [address] Main Bldg, 9th [place] [address] Dalia Weiner APRN Malignant neoplasm of unspecified part of unspecified bronchus or lung; Diarrhea 05/03/2023 Documentation [facility] [address] [facility] [place] [address] Bree Calderón MD 05/02/2023 Orders Only [facility] - Medical Oncology [address] Main Bldg, 9th [place] [address] Dalia Weiner, SUSANA Non-small cell carcinoma of lung, TNM stage 4 <Unspecified side> (Primary Dx) 04/18/2023 2:40 PM AUTOMOBILE BUMPER STRAIGHTENER - 04/18/2023 11:59 PM AUTOMOBILE BUMPER STRAIGHTENER Hospital Encounter [facility] [address] [facility] Main Bldg, [place] [address] Sindi Casiano MD Malignant neoplasm of unspecified part of unspecified bronchus or lung Discharge Disposition: Home 04/18/2023 1:00 PM AUTOMOBILE BUMPER STRAIGHTENER Follow-Up [facility] - Medical Oncology [facility] Main Bldg, 9th [place] [address] Sindi Casiano MD Malignant neoplasm of unspecified part of unspecified bronchus or lung (Primary Dx); Non-small cell carcinoma of lung, TNM stage 4 <Unspecified side> 04/18/2023 Documentation Rehabilitation Services [facility], 1st Floor [id number] [place] [address] StillwaterZohreh Barkley, [place] 04/18/2023 Orders Only [facility] - Medical Oncology [address] [facility], 9th [place] [address] Rosa Almendarez, Greer Malignant neoplasm of unspecified part of unspecified bronchus or lung (Primary Dx) 04/18/2023 Travel 04/16/2023 2:05 PM AUTOMOBILE BUMPER STRAIGHTENER Ancillary Procedure CT Imaging [address] [facility], 7th [place] [address] Dalia Weiner, HARDWARE DESIGNER Non-small cell carcinoma of lung, TNM stage 4 <Unspecified side> 04/12/2023 9:30 AM AUTOMOBILE BUMPER STRAIGHTENER - 04/12/2023 11:59 PM AUTOMOBILE BUMPER STRAIGHTENER Hospital Encounter [facility] [address] [place] [address], 1st [place] [address] Saira Carrasquillo, SUSANA Secondary malignant neoplasm of brain Discharge Disposition: Home 04/12/2023 Orders Only [facility] - Neurosurgery [facility], 7th [place] [address] Rajinder English, HARDWARE DESIGNER Lesion of brain (Primary Dx) 04/11/2023 8:13 AM AUTOMOBILE BUMPER STRAIGHTENER Anesthesia Event [facility] [address] [place] [address] Radiation Oncology Center Take Elevator G to [place] [address] Kenton Reich MD 04/11/2023 7:10 AM AUTOMOBILE BUMPER STRAIGHTENER - 04/11/2023 11:40 AM AUTOMOBILE BUMPER STRAIGHTENER Surgery [facility] [address] [place] [address] Radiation Oncology [place] Take Elevator G to [place] [address] Bree Calderón MD 4 STAR - STEREOTACTIC RADIATION [place] MANAGEMENT,CRANIAL LESION 04/11/2023 7:03 AM AUTOMOBILE BUMPER STRAIGHTENER - 04/11/2023 5:39 PM AUTOMOBILE BUMPER STRAIGHTENER Hospital Encounter Radiation Treatment Center [address] [facility] Radiation Oncology Center Take Elevator G to [place] [address] Mark Batista MD Discharge Disposition: Home 04/11/2023 Documentation Radiation Treatment Center [address] [facility] [place] [address] Bree Calderón MD 04/11/2023 Documentation Radiation Treatment [facility] [address] [facility] [place] [address] Bree Calderón MD 04/11/2023 Documentation [facility] Treatment [facility] [address] [facility] [place] [address] Bree Calderón MD 04/11/2023 Travel 04/10/2023 11:00 AM AUTOMOBILE BUMPER STRAIGHTENER - 04/10/2023 11:59 PM AUTOMOBILE BUMPER STRAIGHTENER Hospital Encounter Radiation Treatment Center [address] [facility] Main Bldg, 1st [place] [address] Saira Carrasquillo APRN Foster, Avian P, RN Secondary malignant neoplasm of brain Discharge Disposition: Home 04/10/2023 Prep for Surgery [facility] - Neurosurgery [address] [facility] Main Bldg, 7th [place] [address] Rajinder English APRN 04/10/2023 Documentation [facility] - Neurosurgery [address] Main Bldg, 7th [place] [address] Marcella Hopper, HARDWARE DESIGNER 04/10/2023 Prep for Surgery [facility] - Neurosurgery [address] Main Bldg, 7th [place] [address] Marcella Hopper, HARDWARE DESIGNER Secondary malignant neoplasm of brain (Primary Dx) 04/09/2023 10:37 AM AUTOMOBILE BUMPER STRAIGHTENER - 04/09/2023 11:59 PM AUTOMOBILE BUMPER STRAIGHTENER Hospital Encounter Diagnostic Laboratory Center [address] Main Bldg, [place] [address] Saira Carrasquillo APRN Secondary malignant neoplasm of brain Discharge Disposition: Home 04/09/2023 7:28 AM AUTOMOBILE BUMPER STRAIGHTENER Anesthesia Event Diagnostic Imaging [facility] [address] Main Bldg, 3rd [place] [address] Darius Zelaya MD 04/09/2023 6:08 AM AUTOMOBILE BUMPER STRAIGHTENER - 04/09/2023 10:36 AM AUTOMOBILE BUMPER STRAIGHTENER Hospital Encounter [facility] [address] Main Bldg, 3rd [place] [address] Saira Carrasquillo APRN Mirza, Alisa, CRNA Potylchansky, Yury, MD Secondary malignant neoplasm of brain Discharge Disposition: Home 04/06/2023 11:59 PM AUTOMOBILE BUMPER STRAIGHTENER Anesthesia Event Perioperative Evaluation [facility] Main Bldg, 6th [place] [address] Yamilet Gibson RN 04/06/2023 11:30 AM AUTOMOBILE BUMPER STRAIGHTENER POEM Appointments [facility] [facility] Main Bldg, 6th [place] [address] Sindi Casiano MD 03/26/2023 Orders Only Thoracic Center - Medical Oncology [address]ldg, 9th [place] [address] Dalia Weiner APRN Hypokalemia (Primary Dx) 03/02/2023 Documentation Radiation Treatment [facility] [address] [facility] Main Bldg, 1st [place] [address] Curtis Welsh APRN 02/27/2023 Orders Only Neuroradiology [address] [place] [address] Tere Hawkins MD 02/27/2023 Orders Only Radiation Treatment Center [facility] Main Bldg, 1st [place] [address] Saira Carrasquillo APRN Secondary malignant neoplasm of brain (Primary Dx) 02/26/2023 2:49 PM AUTOMOBILE BUMPER STRAIGHTENER - 02/26/2023 11:59 PM AUTOMOBILE BUMPER STRAIGHTENER Hospital Encounter Radiation Treatment Center [address] [facility] Main Bldg, 1st [place] [address] Bree Calderón MD Secondary malignant neoplasm of brain Discharge Disposition: Home 02/26/2023 Travel 02/14/2023 9:23 AM AUTOMOBILE BUMPER STRAIGHTENER Anesthesia Event Diagnostic Imaging Center [facility] Main Bldg, 3rd [place] [address] Bambi Hernandez MD 02/14/2023 8:00 AM AUTOMOBILE BUMPER STRAIGHTENER - 02/14/2023 11:59 PM AUTOMOBILE BUMPER STRAIGHTENER Hospital Encounter Diagnostic Imaging Center [address] [facility] Main Bldg, 3rd [place] [address] Jailene Crespo CRNA Oliver, Jodi Ann, MD Secondary malignant neoplasm of brain Discharge Disposition: Home 02/07/2023 11:59 PM AUTOMOBILE BUMPER STRAIGHTENER Anesthesia Event Perioperative Evaluation and Management Center [facility] Main Bldg, 6th [place] [address] Miguel Angel Riggins RN 02/07/2023 12:00 PM AUTOMOBILE BUMPER STRAIGHTENER POEM Appointments Perioperative Evaluation and Management Center [address] [place] [address] Main Bldg, 6th [place] [address] Sindi Casiano MD 01/29/2023 [facility] Only Thoracic Center - Medical Oncology [facility] Main dg, 9th Floor Elevator [address] [place] [phone] Dalia Weiner APRN Non-small cell carcinoma of lung, TNM stage 4 <Unspecified side> (Primary Dx) 01/17/2023 7:50 AM CDT - 01/17/2023 11:59 PM CDT Hospital Encounter Main CT IMAGING [facility] Main Bldg, 3rd [place] [address] Dalia Weiner APRN Non-small cell carcinoma of lung, TNM stage 4 <Unspecified side> Discharge Disposition: Home 01/17/2023 7:24 AM CDT - 01/17/2023 7:49 AM CDT Hospital Encounter Diagnostic Laboratory Center [address] [facility] Main Bldg, [place] [address] Dalia Weiner APRN Non-small cell carcinoma of lung, TNM stage 4 <Unspecified side> Discharge Disposition: Home 01/17/2023 Orders Only Thoracic Center - Medical Oncology [facility] Main dg, 9th [place] [address] Rosa Almenadrez, PharmD 01/09/2023 Orders Only Neuroradiology [address] [place] [id number] Sharlene Wayne MD 01/09/2023 Orders Only Radiation Treatment Center [facility] Main Bldg, 1st [place] [address] Vicky Denise APRN Secondary malignant neoplasm of brain (Primary Dx) 01/08/2023 4:00 PM CDT - 01/08/2023 11:59 PM CDT Hospital Encounter Radiation Treatment Center [facility] Main Bldg, 1st [place] [address] Bree Calderón MD Secondary malignant neoplasm of brain Discharge Disposition: Home 01/05/2023 9:44 AM CDT Anesthesia Event Diagnostic Imaging Center [facility] Main Bldg, 3rd Floor Elevator [address] [place] [phone] Moni Malloy MD Kwok, Cindy, CRNA 01/05/2023 8:00 AM CDT - 01/05/2023 11:59 PM CDT Hospital Encounter Diagnostic Imaging Center [facility] Main Bldg, 3rd [place] [address] Lois Willingham MD Nguyen, Anh-Thuy, MD Casarez, Vianey, OSMEL Secondary malignant neoplasm of brain Discharge Disposition: Home 01/04/2023 4:00 PM CDT POEM Appointments Perioperative Evaluation [facility] Management Center [address] [place] [address] Main Bldg, 6th Floor Elevator [address] [place] [phone] Sindi Casiano MD 11/29/2022 11:59 PM CDT Anesthesia Event Perioperative Evaluation and Management Center [address] [facility] Main Bldg, 6th [place] [address] Navarro Briseno II, HARDWARE DESIGNER after 01/04/2023 Immunizations Name Administration Dates Next Due Pfizer SARS-CoV-2 Vaccination (Purple Cap) 11/06 Surgical History Surgery Date Site/Laterality Comments THYROID SURGERY 07/14/2016 was planned for partial thyroidectomy which was aborted d/t positive LN UTERINE FIBROID EMBOLIZATION GALLBLADDER SURGERY LAPAROSCOPIC GASTRIC BANDING TUBAL LIGATION VA EGD TRANSORAL BIOPSY SINGLE/MULTIPLE 05/31/2019 Esophagus/N/A Procedure: UPPER GASTROINTESTINAL ENDOSCOPY OF ESOPHAGUS, STOMACH, AND DUODENUM WITH BIOPSY; Surgeon: Haile Whittaker MD; Location: MAIN ENDOSCOPY; Service: GASTROENTEROLOGY VA CRANIEC TREPHINE BONE FLP BRAIN TUMOR SUPRTENTOR 02/10/2020 Head/Left Procedure: LEFT TEMPORAL CRANIOTOMY FOR EXCISION OF BRAIN TUMOR; Surgeon: Frannie Emery MD; Location: MAIN OR; Service: NEUROSURGERY Medical devices from this surgery are in the Medical Devices section. VA COLONOSCOPY FLX DX W/COLLJ SPEC WHEN PFRMD 09/28/2021 N/A Procedure: DIAGNOSTIC FLEXIBLE COLONOSCOPY PROXIMAL TO SPLENIC FLEXURE; Surgeon: Annette Kang MD; Location: MAIN ENDOSCOPY; Service: GASTROENTEROLOGY; The EGD and colonoscopy showed minimal inflammation in the stomach/duodenum, but lymphocytic colitis on biopsy, which could certainly explain her symptoms of diarrhea. VA TCAT PERMANENT OCCLUSION/EMBOLIZATION PRQ NURSING INFORMATION SYSTEMS COORDINATOR 06/09/2022 Bilateral Procedure: IR EMBOLIZATION NURSING INFORMATION SYSTEMS COORDINATOR (INTRACRANIAL); Surgeon: Haim Mckeon MD; Location: MAIN OR; Service: INTERVENTIONAL RADIOLOGY [facility] RADIATION [place] MANAGEMENT CRANIAL LESION 04/11/2023 [...] Sign Reading Time Taken Comments Blood Pressure 128/81 11/12/2023 3:23 PM CDT Pulse 56 11/12/2023 3:23 PM CDT Angela Castañeda, RN notified Temperature 36.2 C (97.2 F) 11/12/2023 3 :23 PM CDT Respiratory Rate 20 11/12/2023 3:23 PM CDT Oxygen Saturation 98% 11/12/2023 3:2 3 PM CDT Inhaled Oxygen Concentration - - Weight 82.7 kg (182 lb 5.1 oz) 11/12/2023 3:55 AM CDT Height 157.5 cm (5' 2") 11/04/2023 4:41 AM CDT Body Mass Index 33.35 11/04/2023 4:41 AM CDT Plan of Treatment Health Maintenance Due Date Last Done Comments COVID-19 Vaccine (2 - Pfizer risk series) 11/27/2020 11/06/2020 Influenza Vaccine (#1) 2023 Pneumococcal Vaccine: Pediat rics (0 to 5 Years) and At-Risk Patients (6 to 64 Years) Aged Out No longer eligi ble based on patient's age to complete this topic Medical Devices Implanted Type Area Wader Boot Top Assembler Device Identifier Shelf Expiration Date Model / Serial / Lot Lap Band Implant Stomach CoupleAN [employer] B2360 / [id number] / Description:Lap band--Cezar rivera Bariat[employer]--2010--Dr. Edward Reed--[id number] Allergan Lap-Band--Conditional 5 up to 3T per Videofropper Hc Cover, Matrix Neuro Ulp [place] Hole, Ti, 17mm - [id number] Implanted:Qty: 2 on 02/10/2020 by Frannie Emery MD at [facility] Implant Left: Cranial SYNTHES [place] 04.502.0 23 / / Plate, Matix, Neuro, Ulp Ti, Box, [id number] - [id number] Implanted:Qty: 1 on 02/10/2020 by Frannie Emery MD at [facility] Implant Left: Cranial SYNTHES [place] 502.0 65 / / Screw Matrixneuro 4mm Self Drilling Pkg 1 - [id number] Implanted:Qty: 13 on 02/10/2020 by Frannie Emery MD at [facility] Metalware Left: Cranial SYNTHES [place] 04503.1 04.01 / / [place] Hole Crani 17mm Low Profile - [id number] Implanted:Qty: 1 on 02/10/2020 by Frannie Emery MD at [facility] Metalware Left: Cranial SYNTHES [facility] 503.0 23 / / Sealant Duraseal 5ml - [id number] Implanted:Qty: 1 on 02/10/2020 by Frannie Emery MD at [facility] Skin/Tissue Left: Cranial COVIDIEN 12/16/2020- / / [id number] Procedures Procedure Name Priority Date/Time Associated Diagnosis Comments .CBC Routine 11/12/2023 5:10 AM CDT PHOSPHORUS LEVEL Routine 11/12/2023 5:10 AM CDT MAGNESIUM LEVEL Routine 11/12/2023 5:10 AM CDT COMPREHENSIVE METABOLIC PANEL Routine 11/12/2023 5:10 AM CDT COMPLETE BLOOD COUNT W/ DIFFERENTIAL Routine 11/12/2023 5:10 AM CDT .CBC Routine 11/11/2023 5:30 AM CDT TYPE AND SCREEN Routine 11/11/2023 5:30 AM CDT PHOSPHORUS LEVEL Routine 11/11/2023 5:30 AM CDT MAGNESIUM LEVEL Routine 11/11/2023 5:30 AM CDT COMPREHENSIVE METABOLIC PANEL Routine 11/11/2023 5:30 AM CDT COMPLETE BLOOD COUNT W/ DIFFERENTIAL Routine 11/11/2023 5:30 AM CDT .CBC Routine 11/10/2023 9:35 AM CDT PHOSPHORUS LEVEL Routine 11/10/2023 9:35 AM CDT MAGNESIUM LEVEL Routine 11/10/2023 9:35 AM CDT COMPREHENSIVE METABOLIC PANEL Routine 11/10/2023 9:35 AM CDT COMPLETE BLOOD COUNT W/ DIFFERENTIAL Routine 11/10/2023 9:35 AM CDT DIFFERENTIAL Routine 11/09/2023 4:04 AM CDT .CBC Routine 11/09/2023 4:04 AM CDT PHOSPHORUS LEVEL Routine 11/09/2023 4:04 AM CDT MAGNESIUM LEVEL Routine 11/09/2023 4:04 AM CDT COMPREHENSIVE METABOLIC PANEL Routine 11/09/2023 4:04 AM CDT COMPLETE BLOOD COUNT W/ DIFFERENTIAL Routine 11/09/2023 4:04 AM CDT .CBC Routine 11/08/2023 5:44 AM CDT TYPE AND SCREEN Routine 11/08/2023 5:44 AM CDT PHOSPHORUS LEVEL Routine 11/08/2023 5:44 AM CDT MAGNESIUM LEVEL Routine 11/08/2023 5:44 AM CDT COMPREHENSIVE METABOLIC PANEL Routine 11/08/2023 5:44 AM CDT COMPLETE BLOOD COUNT W/ DIFFERENTIAL Routine 11/08/2023 5:44 AM CDT .CBC Routine 11/07/2023 5:31 AM CDT PHOSPHORUS LEVEL Routine 11/07/2023 5:31 AM CDT MAGNESIUM LEVEL Routine 11/07/2023 5:31 AM CDT COMPREHENSIVE METABOLIC PANEL Routine 11/07/2023 5:31 AM CDT COMPLETE BLOOD COUNT W/ DIFFERENTIAL Routine 11/07/2023 5:31 AM CDT MRI CERVICAL THORACIC LUMBAR SPINE W WO CONTRAST Routine 11/06/2023 4:16 PM CDT MRI BRAIN W WO CONTRAST - ABTI STAT 11/06/2023 4:16 PM CDT .CBC Routine 11/06/2023 5:42 AM CDT PHOSPHORUS LEVEL Routine 11/06/2023 5:42 AM CDT MAGNESIUM LEVEL Routine 11/06/2023 5:42 AM CDT COMPREHENSIVE METABOLIC PANEL Routine 11/06/2023 5:42 AM CDT COMPLETE BLOOD COUNT W/ DIFFERENTIAL Routine 11/06/2023 5:[address] CHEST ABDOMEN PELVIS W WO CONTRAST STAT 11/05/2023 8:26 PM CDT AMMONIA LEVEL Routine 11/05/2023 9:28 AM CDT VITAMIN B1 Routine 11/05/2023 8:31 AM CDT .CBC Routine 11/05/2023 8:27 AM CDT BLOOD GAS VENOUS Routine 11/05/2023 8:27 AM CDT VITAMIN B6 LEVEL Routine 11/05/2023 8:27 AM CDT FOLATE, RED BLOOD CELLS Routine 11/05/19 8:27 AM CDT TYPE AND SCREEN Routine 11/05/2023 8:27 AM CDT COMPLETE BLOOD COUNT W/ DIFFERENTIAL Routine 11/05/2023 8:27 AM CDT VITAMIN D 25 HYDROXY LEVEL Routine 11/05/2023 8:26 AM CDT VITAMIN E LEVEL Routine 11/05/2023 8:26 AM CDT HOMOCYSTEINE TOTAL Routine 11/05/2023 8: 26 AM CDT METHYLMALONIC ACID QUANTATIVE SERUM Routine 11/05/2023 8:26 AM CDT VITAMIN B12 LEVEL Routine 11/05/2023 8:2 6 AM CDT PHOSPHORUS LEVEL Routine 11/05/2023 8:26 AM CDT MAGNESIUM LEVEL Routine 11/05/2023 8:26 AM CDT COMPREHENSIVE METABOLIC PANEL Routine 11/05/2023 8:26 AM CDT COPPER LEVEL Routine 11/05/2023 8:25 AM CDT FOLATE LEVEL Routine 11/05/2023 8:25 AM CDT XR ABDOMEN 1 VW PORTABLE Routine 024 9:29 AM CDT URINALYSIS MICROSCOPIC EXAM Routine 11/04/2023 5:56 AM CDT URINALYSIS WITH MICROSCOPIC IF INDICATED Routine 11/04/2023 5:56 AM CDT URINE CULTURE Routine 11/04/2023 5:56 AM CDT AMMONIA LEVEL Routine 11/04/2023 12:29 AM CDT POC GLUCOSE SCREEN Routine 11/04/2023 12 :[address] HEAD WO CONTRAST STAT 11/04/2023 1 2:12 AM CDT XR CHEST 1 VW Routine 11/04/2023 12:07 AM CDT POC VENOUS BLOOD GAS + LACTATE Routine 11/04/2023 12:03 AM CDT FREE THYROXINE Add-On 11/03/2023 11:47 PM CDT THYROID STIMULATING HORMONE Add-On 11/03/2023 11:47 PM CDT .CBC Routine 11/03/2023 11:47 PM CDT LACTATE DEHYDROGENASE Routine 11/03/2023 11:47 PM CDT FRACTIONATED BILIRUBIN Routine 11:47 PM CDT APTT Routine 11/03/2023 11:47 PM CDT PROTHROMBIN TIME Routine 11/03/2023 11:4 7 PM CDT PHOSPHORUS LEVEL Routine 11/03/2023 11:4 7 PM CDT MAGNESIUM LEVEL Routine 11/03/2023 11:47 PM CDT COMPREHENSIVE METABOLIC PANEL Routine 11/03/2023 11:47 PM CDT COMPLETE BLOOD COUNT W/ DIFFERENTIAL Routine 11/03/2023 11:47 PM CDT .CBC Routine 10/08/2023 4:33 AM CDT PHOSPHORUS [...] W/ DIFFERENTIAL Routine 08/03/2023 5:11 AM CDT URINALYSIS W/REFLEX CULTURE GROUPER Routine 08/02/2023 5:30 PM CDT URINALYSIS W/REFLEX CULTURE Routine 08/02/2023 5:30 PM CDT [...] brain LIPID PANEL Routine 04/18/2023 2:50 PM AUTOMOBILE BUMPER STRAIGHTENER Malignant neoplasm of unspecified part of unspecified bronchus or lung MAGNESIUM LEVEL Routine 04/18/2023 2:50 PM AUTOMOBILE BUMPER STRAIGHTENER Malignant neoplasm of unspecified part of unspecified bronchus or lung CREATINE KINASE Routine 04/18/2023 2:50 PM AUTOMOBILE BUMPER STRAIGHTENER Malignant neoplasm of unspecified part of unspecified bronchus or lung COMPREHENSIVE METABOLIC PANEL Routine 04/18/2023 2:50 PM AUTOMOBILE BUMPER STRAIGHTENER Malignant neoplasm of unspecified part of unspecified bronchus or lung CT CHEST ABDOMEN PELVIS W CONTRAST Routine 04/16/2023 5:20 PM AUTOMOBILE BUMPER STRAIGHTENER Non-small cell carcinoma of lung, TNM stage 4 <Unspecified side> POC CREATININE Routine 04/16/2023 4:39 PM AUTOMOBILE BUMPER STRAIGHTENER [facility] TX MANAGEMENT CRANIAL LESION 04/11/2023 8:03 AM AUTOMOBILE BUMPER STRAIGHTENER Secondary malignant neoplasm of brain .CBC Routine 04/09/2023 10:59 AM AUTOMOBILE BUMPER STRAIGHTENER Secondary malignant neoplasm of brain COMPLETE BLOOD COUNT W/ DIFFERENTIAL Routine 04/09/2023 10:59 AM AUTOMOBILE BUMPER STRAIGHTENER Secondary malignant neoplasm of brain MRI BRAIN WITH AND WITHOUT CONTRAST - FRAMELESS GAMMA KNIFE Routine 04/09/2023 8:55 AM AUTOMOBILE BUMPER STRAIGHTENER Secondary malignant neoplasm of brain MRI BRAIN W WO CONTRAST - ABTI Routine 02/14/2023 11:23 AM AUTOMOBILE BUMPER STRAIGHTENER Secondary malignant neoplasm of brain POC CREATININE Routine 02/14/2023 9:01 AM AUTOMOBILE BUMPER STRAIGHTENER CT CHEST ABDOMEN PELVIS W CONTRAST Routine [...] AM CDT Secondary malignant neoplasm of brain after 01/04/2023 Results * (ABNORMAL) .CBC (11/12/2023 5:10 AM CDT) Only the most recent of49 resultswithin the time period is included. Pathologist [facility] White Blood Cell 7.0 4.1 - 10.5 K/uL 11/12/2023 5:45 AM CDT [facility] Red Blood Cell 3.51(L) 3.99 - 5.46 M/uL 11/12/2023 5:45 AM CDT [facility] Hemoglobin 10.6(L) 12.2 - 15.3 g/dL 11/12/2023 5:45 AM CDT [facility] Hematocrit 32.7(L) 36.4 - 46.8 % 11/12/2023 5:45 AM CDT [facility] Mean Cell Volume 93 82 - 99 fL 11/12/2023 5:45 AM CDT [facility] Mean Cell Hemoglobin 30.2 26.6 - 33.2 pg 11/12/2023 5:45 AM CDT [facility] Mean Cell Hemoglobin Concentration 32.4 31.1 - 35.2 g/dL 11/12/2023 5:45 AM CDT [facility] RDW-SD 47.0 37.5 - 49.7 fL 11/12/2023 5:45 AM CDT [facility] Red Cell Diameter Width 13.8 11.6 - 15.5 % 11/12/2023 5:45 AM CDT [facility] Platelet 205 160 - 397 K/uL 11/12/2023 5:45 AM CDT [facility] Mean Platelet Volume 10.1 9.1 - 12.6 fL 11/12/2023 5:45 AM CDT [facility] INRBC 0.0 0.0 - 0.1 /100 WBC 11/12/2023 5:45 AM CDT [facility] Comment: The INRBC (instrument NRBC) value reflects the enumeration of nucleated red blood cells contained in a 200uL sample of whole blood analyzed by the instrument. This value may differ from the NRBC value reported in a manual differential, which is based on a 100 cell differential. Neutrophil % 55.4 43.2 - 72.7 % 11/12/2023 5:45 AM CDT [facility] Lymphocyte % 35.0 16.8 - 46.2 % 11/12/2023 5:45 AM CDT [facility] Monocyte % 7.0 5.1 - 12.5 % 11/12/2023 5:45 AM CDT [facility] Eosinophil % 1.6 0.4 - 6.3 % 11/12/2023 5:45 AM CDT [facility] Basophil % 0.1(L) 0.2 - 1.4 % 11/12/2023 5:45 AM CDT [facility] IGRE % 0.9 0.1 - 1.5 % 11/12/2023 5:45 AM CDT [facility] Comment:The IGRE% includes M etamyelocytes, Myelocytes and Promyelocytes. Neutrophil Abs 3.89 1.95 - 7.25 K/uL 11/12/2023 5:45 AM CDT [facility] Lymphocyte Abs 2.45 1.01 - 3.24 K/uL 11/12/2023 5:45 AM CDT [facility] Monocyte Abs 0.49 0.24 - 0.85 K/uL 11/12/2023 5:45 AM CDT [facility] Eosinophil Abs 0.11 0.02 - 0.50 K/uL 11/12/2023 5:45 AM CDT [facility] Basophil Abs 0.01(L) 0.02 - 0.09 K/uL 11/12/2023 5:45 AM CDT [facility] IG Abs 0.06 0.01 - 0.12 K/uL 11/12/2023 5:45 AM CDT [facility] Blood Peripheral blood specimen / Unknown Venipuncture / Unknown 11/12/2023 5:10 AM CDT 11/12/2023 5:38 AM CDT Colby Malloy MD LAB BLOOD ORDERABLES [facility] Unless otherwise noted, all lab tests performed by: Division of Pathology and Laboratory Medicine [facility] [place] [address] * (ABNORMAL) Comprehensive Metabolic Panel (11/12/2023 5:10 AM CDT) Only the most recent of32 resultswithin the time period is included. Bilirubin Total <0.3 0.0 - 1.2 mg/dL 11/12/2023 6:15 AM CDT [facility] Comment:Indocyanine Green (I CG) may cause falsely elevated bilirubin results. Total and direct bilirubin must not be measured from samples containing indocyanine green. False elevation of total bilirubin can be seen in patients with IgG concentrations above 28 g/L. eGFR 83 >=60 mL/min/1. 73 sq. m 11/12/2023 6:15 AM CDT [facility] Comment: The eGFRcr is calculated with [...] G2 fulfill criteria for CKD. Tot Protein 5.6(L) 6.4 - 8.3 gm/dL 11/12/2023 6:15 AM CDT [facility] Calcium Level Total 8.2 8.2 - 10.2 mg/dL 11/12/2023 6:15 AM CDT [facility] Alkaline Phosphatase 75 35 - 104 U/L 11/12/2023 6:15 AM CDT [facility] Albumin Level 3.3(L) 3.5 - 5.2 gm/dL 11/12/2023 6:15 AM CDT [facility] AST 8 <=32 U/L 11/12/2023 6:15 AM CDT [facility] ALT 10 <=33 U/L 11/12/2023 6:15 AM CDT [facility] Sodium Level 143 136 - 145 mmol/L 11/12/2023 6:15 AM CDT [facility] Potassium Level 4.0 3.4 - 4.5 mmol/L 11/12/2023 6:15 AM CDT [facility] Chloride 106 98 - 107 mmol/L 11/12/2023 6:15 AM CDT [facility] CO2 27 22 - 29 mmol/L 11/12/2023 6:15 AM CDT [facility] Anion Gap 10 4 - 14 mmol/L 11/12/2023 6:15 AM CDT [facility] Creatinine 0.85 0.51 - 0.95 mg/dL 11/12/2023 6:15 AM CDT [facility] BUN 22 6 - 23 mg/dL 11/12/2023 6:15 AM CDT [facility] Glucose Level 79 70 - 99 mg/dL 11/12/2023 6:15 AM CDT [facility] Comment: Effective 10/13/15, the glucose reference intervals have been updated based on [place] Diabetes [employer] guidelines (Standards of Medical Care in Diabetes 2016. Diabetes Care 2016; 39: S13-S22). Fasting blood glucose: Normal: 70-99 mg/dL Impaired fasting glucose (increased risk for diabetes or pre-diabetes): 100-125 mg/dL Diabetes mellitus: >/=126 mg/dL Random blood glucose: Normal: 70-199 mg/dL Note: Random glucose >100 mg/dL is associated with increased risk for diabetes. Blood Peripheral blood specimen / Unknown Venipuncture / Unknown 11/12/2023 5:10 AM CDT 11/12/2023 5:38 AM CDT Colby Malloy MD LAB BLOOD ORDERABLES [facility] Unless otherwise noted, all lab tests performed by: Division of Pathology and Laboratory Medicine [address] [place] [id number] * Phosphorus Level (11/12/2023 5:10 AM CDT) Only the most recent of43 resultswithin the time period is included. Phosphorus Level 3.9 2.5 - 4.5 mg/dL 11/12/2023 6:15 AM CDT [facility] Blood Peripheral blood specimen / Unknown Venipuncture / Unknown 11/12/2023 5:10 AM CDT 11/12/2023 5:38 AM CDT Colby Malloy MD LAB BLOOD ORDERABLES Performing Organization Address City/[facility] Co de Phone Number [facility] Unless otherwise noted, all lab tests performed by: Division of Pathology and Laboratory Medicine [address] [place] [id number] * Magnesium Level (11/12/2023 5:10 AM CDT) Only the most recent of44 resultswithin the time period is included. Magnesium Level 2.2 1.6 - 2.6 mg/dL 11/12/2023 6:15 AM CDT [facility] Blood Peripheral blood specimen / Unknown Venipuncture / Unknown 11/12/2023 5:10 AM CDT 11/12/2023 5:38 AM CDT [place] Malloy MD LAB BLOOD ORDERABLES [facility] Unless otherwise noted, all lab tests performed by: Division of Pathology and Laboratory Medicine [address] [place] [id number] * Type and Screen (11/11/2023 5:30 AM CDT) Only the most recent of4 resultswithin the time period is included. ABORh A POS 11/11/2023 5:30 AM CDT [facility] ABSC Negative 11/11/2023 5:30 AM CDT [facility] Clot Expiration 2023 23:59 11/11/2023 5:30 AM CDT [facility] Historical Record Check Complete 11/11/2023 5:30 AM CDT [facility] Blood Peripheral blood specimen / Unknown Venipuncture / Unknown 11/11/2023 5:30 AM CDT 11/11/2023 5:44 AM CDT [place] Malloy MD BLOOD BANK TEST DOTTIE SESAY [facility] [id number] [place] [address] * (ABNORMAL) Differential (11/09/2023 4:04 AM CDT) Only the most recent of6 resultswithin the time period is included. Total Cells 100 11/09/2023 9:30 AM CDT [facility] Manual Neutrophil % 45.0 43.2 - 72.7 % 11/09/2023 9:30 AM CDT [facility] Comment:The Neutrophil count includes Bands. Manual Lymphocyte % 46.0 16.8 - 46.2 % 11/09/2023 9:30 AM CDT [facility] Manual Monocyte % 7.0 5.1 - 12.5 % 11/09/2023 9:30 AM CDT [facility] Manual Eosinophil % 1.0 0.4 - 6.3 % 11/09/2023 9:30 AM CDT [facility] Metamyelocyte % 1.0(H) <=0.0 % 9:30 AM CDT [facility] Comment:The Metamyelocyte co unt includes Myelocytes. Manual Neutrophil Abs 2.84 1.95 - 7.25 K/uL 11/09/2023 9:30 AM CDT [facility] Manual Lymphocyte Abs 2.90 1.01 - 3.24 K/uL 11/09/2023 9:30 AM CDT [facility] Manual Monocyte Abs 0.44 0.24 - 0.85 K/uL 11/09/2023 9:30 AM CDT [facility] Manual Eosinophil Abs 0.06 0.02 - 0.50 K/uL 11/09/2023 9:30 AM CDT [facility] RBC Morphology PRESENT 11/09/2023 9:30 AM CDT [facility] PLT Morph Normal Normal 11/09/2023 9:30 AM CDT [facility] Anisocytosis Present(A) (none) 11/09/2023 9:30 AM CDT [facility] Macrocyte Present(A) (none) 11/09/2023 9:30 AM CDT [facility] Smudge Cells Present(A) (none) 11/09/2023 9:30 AM CDT [facility] Slide Comment SEE NOTE 11/09/2023 9:30 AM CDT [facility] Comment:Differential perform ed on Albumin prep. Blood Peripheral blood specimen / Unknown Venipuncture / Unknown 11/09/2023 4:04 AM CDT 11/09/2023 4:30 AM CDT [place] Malloy MD LAB BLOOD ORDERABLES [facility] Unless otherwise noted, all lab tests performed by: Division of Pathology and Laboratory Medicine [address] [place] [id number] * MRI CERVICAL THORACIC LUMBAR SPINE W WO CONTRAST (11/06/2023 4:16 PM CDT) Anatomical Region Laterality Modality Spine, C-spine, T-spine, L-spine Magnetic Resonance 11/06/2023 5:19 PM CDT Impressions 11/07/2023 8:04 AM CDT 1. No metastatic lesions. 2. No cord compression. ACTIONABLE ITEMS/RECOMMENDATIONS*: None. *An Actionable Finding is a finding that may be unrelated to the original reason for imaging but potentially actionable, meaning further investigation may be necessary. The Actionable Findings Vigilance Unit (AFVU) assists medical providers with responding to additional radiologic findings that are unexpected and potentially actionable. Narrative 11/07/2023 8:04 AM CDT FULL RESULT: Examination: MRI CERVICAL THORACIC LUMBAR SPINE W WO CONTRAST on 11/06/2023 4:16 PM. CLINICAL HISTORY: Non-small cell carcinoma of lung, TNM stage 4 INDICATION: bowel bladder incontinence and back pain COMPARISON: MRI cervical, thoracic and lumbosacral spine 07/06/2021. TECHNIQUE: MRI of the cervical, thoracic and lumbosacral spine without and with IV contrast was performed. FINDINGS: Findings: Cervical spine: Vertebral body alignment is within normal limits. Loss of the normal cervical lordosis may be positional. Marrow signal is homogenous and without enhancement. There is mild spinal canal stenosis at C5-6 due to a symmetric disc bulge. There is no cord signal abnormality or cord compression. No abnormal leptomeningeal enhancement. Thoracic spine: Vertebral body alignment is within normal limits. Marrow signal is homogenous and without enhancement. No significant spinal canal stenosis is present. There is no cord signal abnormality or cord compression. No abnormal leptomeningeal enhancement. Lumbosacral spine: Sacralization of the L5 vertebral body is noted. There is a new Schmorl's node within the T11 superior endplate with adjacent enhancement. Vertebral body alignment is within normal limits. Marrow signal is homogenous and without enhancement. There is disc desiccation and intervertebral disc space narrowing at the L3/4 and L4/5 levels. No significant central canal or foraminal stenosis is present. No abnormal leptomeningeal enhancement. The included sacrum and iliac wings are unremarkable. Procedure Note Deo Barrera MD - 11/07/2023 FULL RESULT: Examination: MRI CERVICAL THORACIC LUMBAR SPINE W WO CONTRAST on 44:16 PM. CLINICAL HISTORY: Non-small cell carcinoma of lung, TNM stage 4 INDICATION: bowel bladder incontinence and back pain COMPARISON: MRI cervical, thoracic and lumbosacral spine 07/06/2021. TECHNIQUE: MRI of the cervical, thoracic and lumbosacral spine without andwith IV contrast was performed. FINDINGS: Findings: Cervical spine: Vertebral body alignment is within normal limits. Loss of the normal cervical lordosis may be positional. Marrow signal is homogenous and without enhancement. There is mild spinal canal stenosis at C5-6 due to a symmetric disc bulge. There is no cord signal abnormality or cord compression. No abnormal leptomeningeal enhancement. Thoracic spine: Vertebral body alignment is within normal limits. Marrow signal is homogenous and without enhancement. No significant spinal canal stenosis is present. There is no cord signal abnormality or cord compression. No abnormal leptomeningeal enhancement. Lumbosacral spine: Sacralization of the L5 vertebral body is noted. There is a new Schmorl's node within the T11 superior endplate withadjacent enhancement. Vertebral body alignment is within normal limits. Marrow signal is homogenous and without enhancement. There is disc desiccation and intervertebral disc space narrowing at theL3/4 and L4/5 levels. No significant central canal or foraminal stenosis is present. No abnormal leptomeningeal enhancement. The included sacrum and iliac wings are unremarkable. IMPRESSION: 1. No metastatic lesions. 2. No cord compression. ACTIONABLE ITEMS/RECOMMENDATIONS*: None. *An Actionable Finding is a finding that may be unrelated to the originalreason for imaging but potentially actionable, meaning furtherinvestigation may be necessary. The Actionable Findings Vigilance Unit(AFVU) assists medical providers with responding to additional radiologicfindings that are unexpected and potentially actionable. [place] Mall[place] MD [facility] [place] ORDERABLES * MRI Brain with and without Contrast - A[facility]I (11/06/2023 4:16 PM CDT) Only the most recent of2 resultswithin the time period is included. Anatomical Region Laterality Modality Head Magnetic Resonan ce 11/06/2023 5:19 PM CDT Impressions 11/07/2023 8:16 AM CDT 1. Interval increase in the size of a right periatrial lesion since 10/05/2023. 2. Continued increase in the size of the right insular treated metastasis and degree of adjacent vasogenic edema. Perfusion imaging suggests a combination of active tumor and radiation necrosis. 3. Additional treated lesions are stable. 4. Leptomeningeal disease is absent. 5. Stable left temporal postsurgical changes without local recurrence. 6. Stable right parietal subdural hematoma. ACTIONABLE ITEMS/RECOMMENDATIONS*: None. *An Actionable Finding is a finding that may be unrelated to the original reason for imaging but potentially actionable, meaning further investigation may be necessary. The Actionable Findings Vigilance Unit (AFVU) assists medical providers with responding to additional radiologic findings that are unexpected and potentially actionable. Narrative 11/07/2023 8:16 AM CDT FULL RESULT: Examination: MRI BRAIN W WO CONTRAST - ABTI on 11/06/2023 4:16 PM. CLINICAL HISTORY: Non-small cell carcinoma of lung, TNM stage 4 Metastatic lung adenocarcinoma status post whole brain radiation 2016, craniotomy with left temporal tumor resection 02/10/2020, whole brain completed 04/22/2020, and gamma knife 04/11/2023 INDICATION: treatment effect vs tumor (previously scheduled but patient left before completion) COMPARISON: MRI brain without and with contrast 10/05/2023. TECHNIQUE: MRI brain without and with IV contrast was performed. Advanced brain tumor imaging (ABTI) sequences were also performed, including dynamic susceptibility contrast (DSC) perfusion imaging, dynamic contrast enhanced (DCE) perfusion imaging, arterial spin labeled (ASL) perfusion imaging, and single voxel magnetic resonance spectroscopy (MRS) with long TE. FINDINGS: New Lesions: None Non-irradiated Lesions: A 1.2 X 0.8 cm heterogeneously enhancing lesion in the right periatrial region has increased in size from 0.8 x 0.3 cm. Proximity to Hippocampus: No concerns. Irradiated Lesions: * A 2.4 x 2.3 cm peripherally enhancing right insular lesion with irregular margins has increased in size from 2.2 x 2.2 cm. Adjacent vasogenic edema continues increase. Mass effect is again noted upon the right lateral ventricle without midline shift. There is increased cerebral blood flow, cerebral blood volume, and permeability around the periphery of the lesion. Single voxel MR spectroscopy demonstrates decreased metabolites with lipid lactate peaks. * Several previously seen lesions in the paramedian left frontal lobe are visualized. * The remaining treated lesions have been stable since 10/05/2023. Leptomeningeal Disease: None. Other findings: Stable postsurgical changes from prior left temporal craniotomy without suspicious enhancement around the operative site to suggest local recurrence. White matter T2 FLAIR signal hyperintensity is otherwise stable in keeping with posttreatment change. A small focus of restricted diffusion the right parietal lobe (series 2150 and 2152 image 26). No acute hemorrhage or acute hydrocephalus. Unchanged 1.2 cm chronic right parietal subdural collection. Opacification of numerous mastoid air cells bilaterally. Procedure Note Deo Barrera MD - 11/07/2023 FULL RESULT: Examination: MRI BRAIN W WO CONTRAST - ABTI on 11/06/2023 4:16 PM. CLINICAL HISTORY: Non-small cell carcinoma of lung, TNM stage 4 Metastatic lung adenocarcinoma status post whole brain radiation 2016,craniotomy with left temporal tumor resection 02/10/2020, whole braincompleted 04/22/2020, and gamma knife 04/11/2023 INDICATION: treatment effect vs tumor (previously scheduled but patientleft before completion) COMPARISON: MRI brain without and with contrast 10/05/2023. TECHNIQUE: MRI brain without and with IV contrast was performed. Advanced brain tumor imaging (ABTI) sequences were also performed,including dynamic susceptibility contrast (DSC) perfusion imaging, dynamiccontrast enhanced (DCE) perfusion imaging, arterial spin labeled (ASL)perfusion imaging, and single voxel magnetic resonance spectroscopy (MRS)with long TE. FINDINGS: New Lesions: None Non-irradiated Lesions: A 1.2 X 0.8 cm heterogeneously enhancing lesion in the right periatrialregion has increased in size from 0.8 x 0.3 cm. Proximity to Hippocampus: No concerns. Irradiated Lesions: * A 2.4 x 2.3 cm peripherally enhancing right insular lesion withirregular margins has increased in size from 2.2 x 2.2 cm. Adjacentvasogenic edema continues increase. Mass effect is again noted upon theright lateral ventricle without midline shift. There is increased cerebralblood flow, cerebral blood volume, and permeability around the peripheryof the lesion. Single voxel MR spectroscopy demonstrates decreasedmetabolites with lipid lactate peaks. * Several previously seen lesions in the paramedian left frontal lobe arevisualized. * The remaining treated lesions have been stable since 10/05/2023. Leptomeningeal Disease: None. Other findings: Stable postsurgical changes from prior left temporal craniotomy withoutsuspicious enhancement around the operative site to suggest localrecurrence. White matter T2 FLAIR signal hyperintensity is otherwise stable in keepingwith posttreatment change. A small focus of restricted diffusion the right parietal lobe (series 2150and 2152 image 26). No acute hemorrhage or acute hydrocephalus. Unchanged 1.2 cm chronic right parietal subdural collection. Opacification of numerous mastoid air cells bilaterally. IMPRESSION: 1. Interval increase in the size of a right periatrial lesion since10/05/2023. 2. Continued increase in the size of the right insular treated metastasisand degree of adjacent vasogenic edema. Perfusion imaging suggests acombination of active tumor and radiation necrosis. 3. Additional treated lesions are stable. 4. Leptomeningeal disease is absent. 5. Stable left temporal postsurgical changes without local recurrence. 6. Stable right parietal subdural hematoma. ACTIONABLE ITEMS/RECOMMENDATIONS*: None. *An Actionable Finding is a finding that may be unrelated to the originalreason for imaging but potentially actionable, meaning furtherinvestigation may be necessary. The Actionable Findings Vigilance Unit(AFVU) assists medical providers with responding to additional radiologicfindings that are unexpected and potentially actionable. Frannie Emery MD IMG MRI ORDERABLE S * CT Chest Abdomen Pelvis with and without Contrast (11/05/2023 8:26 PM CDT) Anatomical Region Laterality Modality Abdomen, Pelvis, Chest Computed Tomography 11/05/2023 8:51 PM CDT Addenda Addendum by Marol Sykes MD on 11/08/2023 4:03 PM CDT Technique: CT of the abdomen was performed before intravenous contrast administration followed by CT of the chest, abdomen, and pelvis was performed with intravenous contrast. Impressions 11/05/2023 9:00 PM CDT Small pulmonary nodules remain unchanged. ACTIONABLE ITEMS/RECOMMENDATIONS*: None. *An Actionable Finding is a finding that may be unrelated to the original reason for imaging but potentially actionable, meaning further investigation may be necessary. The Actionable Findings Vigilance Unit (AFVU) assists medical providers with responding to additional radiologic findings that are unexpected and potentially actionable. Narrative 11/05/2023 9:00 PM CDT FULL RESULT: Examination: CT CHEST ABDOMEN PELVIS W WO CONTRAST on 11/05/2023 8:26 PM. Clinical History: Lung cancer Indication: Lung cancer, staging. Comparison: Radiographs dated 11/04/[address] dated 07/23/2023 Technique: CT of the chest, abdomen, and pelvis was performed with intravenous contrast. Findings: Chest: Tubes and lines: None. Lungs/Airways/Pleura: The central airways are patent. There is no evidence of consolidation or pulmonary edema. Scattered small noncalcified pulmonary nodules measuring 4 mm or less are stable. There is no pneumothorax or pleural effusion. Neck/Mediastinum/Nodes/Heart: The heart is stable in size. There is no pericardial effusion. Partially calcified lymph nodes are again present. Abdomen and Pelvis: Liver and gallbladder: A few small subcentimeter foci of low-attenuation within the liver are too small to characterize. There has been a previous cholecystectomy. Spleen and pancreas: The spleen and pancreas are unchanged. Kidneys and adrenal glands: The kidneys and adrenal glands are unchanged. Stomach, small bowel, and colon: Oral contrast material is present. There is no evidence of obstruction. Gastric banding. Bones/Soft Tissues: The visualized osseous structures and soft tissues are unchanged. Procedure Note Marlo Sykes MD - 11/05/2023 FULL RESULT: Examination: CT CHEST ABDOMEN PELVIS W WO CONTRAST on 11/05/2023 8:26 PM. Clinical History: Lung cancer Indication: Lung cancer, staging. Comparison: Radiographs dated 11/04/[address] dated 07/23/2023 Technique: CT of the chest, abdomen, and pelvis was performed withintravenous contrast. Findings: Chest: Tubes and lines: None. Lungs/Airways/Pleura: The central airways are patent. There is no evidenceof consolidation or pulmonary edema. Scattered small noncalcifiedpulmonary nodules measuring 4 mm or less are stable. There is nopneumothorax or pleural effusion. Neck/Mediastinum/Nodes/Heart: The heart is stable in size. There is nopericardial effusion. Partially calcified lymph nodes are again present. Abdomen and Pelvis: Liver and gallbladder: A few small subcentimeter foci of low-attenuationwithin the liver are too small to characterize. There has been a previouscholecystectomy. Spleen and pancreas: The spleen and pancreas are unchanged. Kidneys and adrenal glands: The kidneys and adrenal glands areunchanged. Stomach, small bowel, and colon: Oral contrast material is present. Thereis no evidence of obstruction. Gastric banding. Bones/Soft Tissues: The visualized osseous structures and soft tissues areunchanged. IMPRESSION: Small pulmonary nodules remain unchanged. ACTIONABLE ITEMS/RECOMMENDATIONS*: None. *An Actionable Finding is a finding that may be unrelated to the originalreason for imaging but potentially actionable, meaning furtherinvestigation may be necessary. The Actionable Findings Vigilance Unit(AFVU) assists medical providers with responding to additional radiologicfindings that are unexpected and potentially actionable. Frannie Emery MD IMG CT ORDERABLES * Ammonia Level (11/05/2023 9:28 AM CDT) Only the most recent of5 resultswithin the time period is included. Ammonia Level 13 11 - 51 mcmol/L 11/05/2023 10:24 AM CDT [facility] Blood Peripheral blood specimen / Unknown Venipuncture / Unknown 11/05/2023 9:28 AM CDT 11/05/2023 9:31 AM CDT [place] Malloy MD LAB BLOOD ORDERABLES Performing Organization Address City/[facility]/ZIP Co de Phone Number [facility] Unless otherwise noted, all lab tests performed by: Division of Pathology and Laboratory Medicine [address] [place] [phone] * (ABNORMAL) Vitamin B1 Level (11/05/2023 8:31 AM CDT) Thiamin(Wh Bld)-Mead 304(H) 70 - 180 nmol/L 11/09/2023 12:35 AM CDT [facility] Comment: ADDITIONAL INFORMATION This test was developed and its performance characteristics determined by [facility] in a manner consistent with CLIA requirements. This test has not been cleared or approved by the U.S. Food and Drug Administration. Test Performed by: [facility] [place] [address] [place] [address] Claims Analyst: Jocelyne Gifford Ph.D.; CLIA# [id number] Blood Peripheral blood specimen / Unknown Venipuncture / Unknown 11/05/2023 8:31 AM CDT 11/05/2023 8:42 AM CDT [place] Malloy MD LAB BLOOD ORDERABLES Performing Organization Address City/[facility]/ZIP Co de Phone Number [facility] * Folate, RBC (11/05/2023 8:27 AM CDT) Folate, RBC 673 >280 ng/mL RBC 11/06/2023 4:41 PM CDT [facility] Blood Peripheral blood specimen / Unknown Venipuncture / Unknown 11/05/2023 8:27 AM CDT 11/05/2023 8:42 AM CDT Narrative [facility] - 11/06/2023 4:41 PM CDT Performing Organization Information: [facility] [address] [place] [address] Negar Gurrola [place] Malloy MD LAB BLOOD ORDERABLES [facility]) * Vitamin B6 Level (11/05/2023 8:27 AM CDT) PALP-Ovalle 6 5 - 50 mcg/L 11/12/2023 3:33 AM CDT [facility] Comment: ADDITIONAL INFORMATION This test was developed and its performance characteristics determined by [facility] in a manner consistent with CLIA requirements. This test has not been cleared or approved by the U.S. Food and Drug Administration. Pyridoxic Acid (PA)-Mead 17 3 - 30 mcg/L 11/12/2023 3:33 AM CDT [facility] Comment: ADDITIONAL INFORMATION This test was developed and its performance characteristics determined by [facility] in a manner consistent with CLIA requirements. This test has not been cleared or approved by the U.S. Food and Drug Administration. Test Performed by: [facility] - [address] [address] Claims Analyst: Jocelyne Gifford Ph.D.; CLIA# [id number] Blood Peripheral blood specimen / Unknown Venipuncture / Unknown 11/05/2023 8:27 AM CDT 11/05/2023 8:42 AM CDT [place] Malloy MD LAB BLOOD ORDERABLES [facility] * VBG (11/05/2023 8:27 AM CDT) Only the most recent of2 resultswithin the time period is included. pH Venous 7.40 7.32 - 7.43 11/05/2023 8:45 AM CDT [facility] P CO2 Venous 43.3 41.0 - 51.0 mmHg 11/05/2023 8:45 AM CDT [facility] P O2 Venous 35 mmHg 11/05/2023 8:45 AM CDT [facility] Bicarbonate Venous 27 21 - 28 mmol/L 11/05/2023 8:45 AM CDT [facility] Base Excess Venous 1 -2 - 3 mmol/L 11/05/2023 8:45 AM CDT [facility] Oxygen Saturation Venous 64 % 11/05/2023 8:45 AM CDT [facility] Oxygen FLOW Rate/ FiO2 0 % 11/05/2023 8:45 AM CDT [facility] O2 Therapy Room air 11/05/2023 8:45 AM CDT [facility] Blood Peripheral blood specimen / Unknown Venipuncture / Unknown 11/05/2023 8:27 AM CDT 11/05/2023 8:42 AM CDT [place] Malloy MD LAB BLOOD ORDERABLES [facility] Unless otherwise noted, all lab tests performed by: Division of Pathology and Laboratory Medicine [address] [place] [id number] * Methylmalonic Acid Quant, Serum (11/05/2023 8:26 AM CDT) Pathologist [facility] MMA Quant-Mead 0.23 <=0.40 nmol/mL 11/08/2023 10:57 AM CDT [facility] Comment: ADDITIONAL INFORMATION This test was developed and its performance characteristics determined by [facility] in a manner consistent with CLIA requirements. This test has not been cleared or approved by the U.S. Food and Drug Administration. Test Performed by: [facility] - [address] [address] Claims Analyst: Jocelyne Gifford Ph.D.; CLIA# [id number] Blood Peripheral blood specimen / Unknown Venipuncture / Unknown 11/05/2023 8:26 AM CDT 11/05/2023 8:42 AM CDT [place] Malloy MD LAB BLOOD ORDERABLES Performing Organization Address City/[facility]/ZIP Co de Phone Number [facility] * (ABNORMAL) Vitamin D 25OH (11/05/2023 8:26 AM CDT) Pathologist [facility] Vitamin D 25 OH 11(L) 30 - 100 ng/mL 11/05/2023 9:43 AM CDT [facility] Blood Peripheral blood specimen / Unknown Venipuncture / Unknown 11/05/2023 8:26 AM CDT 11/05/2023 8:42 AM CDT Narrative [facility] - 11/05/2023 9:43 AM CDT Reference Range: Deficiency: <=20 ng/mL Insufficiency: 21-29 ng/mL Sufficiency: 30-100 ng/mL Potential toxicity: >100 ng/mL [place] Malloy MD LAB BLOOD ORDERABLES [facility] Unless otherwise noted, all lab tests performed by: Division of Pathology and Laboratory Medicine [address] [place] [id number] * Vitamin E Level (11/05/2023 8:26 AM CDT) Pathologist [facility]Tocopherol, [facility] 8.[facility] 5.5 - 17.0 mg/L 11/07/2023 3:38 PM CDT [facility] Comment: ADDITIONAL INFORMATION This test was developed and its performance characteristics determined by [facility] in a manner consistent with CLIA requirements. This test has not been cleared or approved by the U.S. Food and Drug Administration. Test Performed by: [facility] [address] [place] [id number] Claims Analyst: Jocelyne Gifford Ph.D.; CLIA# [id number] Blood Peripheral blood specimen / Unknown Venipuncture / Unknown 11/05/2023 8:26 AM CDT 11/05/2023 8:42 AM CDT [place] Malloy MD LAB BLOOD ORDERABLES Performing Organization Address City/[facility]/ZIP Co de Phone Number [facility] * Homocysteine Total (11/05/2023 8:26 AM CDT) Pathologist [facility] Homocysteine Total 11.4 <=15.0 mcmol/L 11/05/2023 9:17 AM CDT [facility] Blood Peripheral blood specimen / Unknown Venipuncture / Unknown 11/05/2023 8:26 AM CDT 11/05/2023 8:43 AM CDT Narrative [facility] - 11/05/2023 9:17 AM CDT Reference range established based on adult population Colby Malloy MD LAB BLOOD ORDERABLES [facility] Unless otherwise noted, all lab tests performed by: Division of Pathology and Laboratory Medicine [address] [place] [id number] * Vitamin B12 Level (11/05/2023 8:26 AM CDT) Pathologist [facility] Vitamin B12 Level 269 232 - 1,245 pg/mL 11/05/2023 9:24 AM CDT [facility] Is patient fasting? Yes 11/05/2023 9:24 AM CDT [facility] Blood Peripheral blood specimen / Unknown Venipuncture / Unknown 11/05/2023 8:26 AM CDT 11/05/2023 8:42 AM CDT Narrative [facility] - 11/05/2023 9:24 AM CDT Reference range established based on adult population. Colby Malloy MD LAB BLOOD ORDERABLES [facility] Unless otherwise noted, all lab tests performed by: Division of Pathology and Laboratory Medicine [address] [place] [id number] * Copper Level (11/05/2023 8:25 AM CDT) Pathologist [facility] Copper, S 152 77 - 206 mcg/dL 11/07/2023 11:04 AM CDT [facility] Comment: ADDITIONAL INFORMATION This test was developed and its performance characteristics determined by [facility] in a manner consistent with CLIA requirements. This test has not been cleared or approved by the U.S. Food and Drug Administration. Test Performed by: [facility] - [address] [address] Claims Analyst: Jocelyne Gifford Ph.D.; CLIA# [id number] Blood Peripheral blood specimen / Unknown Venipuncture / Unknown 11/05/2023 8:25 AM CDT 11/05/2023 8:42 AM CDT Colby Malloy MD LAB BLOOD ORDERABLES [facility] * Folate Level (11/05/2023 8:25 AM CDT) [facility] Folate Level 12.2 4.8 - 24.2 ng/mL 11/05/2023 9:24 AM CDT [facility] Is patient fasting? Yes 11/05/2023 9:24 AM CDT [facility] Blood Peripheral blood specimen / Unknown Venipuncture / Unknown 11/05/2023 8:25 AM CDT 11/05/2023 8:42 AM CDT Narrative [facility] - 11/05/2023 9:24 AM CDT Reference range established based on adult population. Colby Malloy MD LAB BLOOD ORDERABLES [facility] Unless otherwise noted, all lab tests performed by: Division of Pathology and Laboratory Medicine [address] [place] [id number] * XR Abdomen 1 View Portable (11/04/2023 9:29 AM CDT) Anatomical Region Laterality Modality Abdomen Digital Radiogra phy 11/04/2023 9:58 AM CDT Impressions 11/04/2023 9:59 AM CDT No acute abnormality seen. Narrative 11/04/2023 9:59 AM CDT FULL RESULT: Examination: XR ABDOMEN 1 VW PORTABLE on 11/04/2023 9:29 AM Clinical History: Non-small cell carcinoma of lung, TNM stage 4 Indication: Abdominal Pain, Diarrhea, Constipation. Comparison: None. TECHNIQUE: XR ABDOMEN 1 VW PORTABLE FINDINGS: 2 supine views of the abdomen demonstrate no dilated loops of large or small bowel. No large fecal burden is identified. A gastric banding device is identified. There are cholecystectomy clips. This film is insensitive for the detection of free air. The regional skeleton is unremarkable. Procedure Note Arturo Mota MD - 11/04/2023 FULL RESULT: Examination: XR ABDOMEN 1 VW PORTABLE on 11/04/2023 9:29 AM Clinical History: Non-small cell carcinoma of lung, TNM stage 4 Indication: Abdominal Pain, Diarrhea, Constipation. Comparison: None. TECHNIQUE: XR ABDOMEN 1 VW PORTABLE FINDINGS: 2 supine views of the abdomen demonstrate no dilated loops of large orsmall bowel. No large fecal burden is identified. A gastric banding deviceis identified. There are cholecystectomy clips. This film is insensitive for the detection of free air. The regionalskeleton is unremarkable. IMPRESSION: No acute abnormality seen. Colby Escobaren IMG DIAGNOSTIC IMAGI NG ORDERABLES * (ABNORMAL) Urinalysis Microscopic Exam (11/04/2023 5:56 AM CDT) Only the most recent of6 resultswithin the time period is included. Urine Mucous Not Seen Not Seen, Trace /HPF 11/04/2023 6:42 AM CDT [facility] Urine Bacteria 1+(A) Not Seen /HPF 11/04/2023 6:42 AM CDT [facility] Urine Squamous Epithelial Cells OCC Not Seen, OCC, Rare /HPF 11/04/2023 6:42 AM CDT [facility] Urine WBC 25(H) <=2 /HPF 11/04/2023 6:42 AM CDT [facility] Urine RBC 15(H) <=2 /HPF 11/04/2023 6:42 AM CDT [facility] Urine Renal Epithelial Cells <1(H) <=0 /HPF 11/04/2023 6:42 AM CDT [facility] Urine Hyaline Casts 1 <=2 /LPF 11/04/2023 6:42 AM CDT [facility] Urine Voided urine specimen / Unknown Non-blood Collection / Unknown 11/04/2023 5:56 AM CDT 11/04/2023 6:30 AM CDT Abhijit Farr MD LAB BLOOD ORDERABLES [facility] Unless otherwise noted, all lab tests performed by: Division of Pathology and Laboratory Medicine [address] [place] [id number] * (ABNORMAL) Urinalysis w/Microscopic if Indicated (11/04/2023 5:56 AM CDT) Only the most recent of6 resultswithin the time period is included. Urine Appearance Hazy(A) Clear 11/04/19 24 6:37 AM CDT [facility] Urine Color Yellow Colorless, Straw, Yellow, Dark Yellow, Straw-Yello w 11/04/2023 6:37 AM CDT [facility] Urine Specific Osseo 1.038(H) 1.003 - 1.035 11/04/2023 6:37 AM CDT [facility] Urine pH 5.5 5.0 - 8.0 11/04/2023 6:37 AM CDT [facility] Urine Glucose Negative Negative mg/dL 11/04/2023 6:37 AM CDT [facility] Urine Ketones 40(A) Negative mg/dL 11/04/2023 6:37 AM CDT [facility] Urine Blood Small(A) Negative 11/04/2023 6:37 AM CDT [facility] Urine Protein 30(A) Negative mg/dL 11/04/2023 6:37 AM CDT [facility] Urine Bilirubin +1(A) Negative 6:37 AM CDT [facility] Urine Urobilinogen +1(A) Negative 11/04/2023 6:37 AM CDT [facility] Urine Nitrite Negative Negative 11/04/2023 6:37 AM CDT [facility] Urine Leukocyte Esterase Moderate(A) Negative 11/04/2023 6:37 AM CDT [facility] Urine Voided urine specimen / Unknown Non-blood Collection / Unknown 11/04/2023 5:56 AM CDT 11/04/2023 6:30 AM CDT Narrative [facility] - 11/04/2023 6:37 AM CDT Some reporting parameters within the Urinalysis test have changed due to the implementation of new instrumentation in the [facility] [place], allowing greater sensitivity of measurement. Urinalysis results reported by the [facility] using existing instrumentation, as well as Urinalysis testing performed manually or by back-up methodology at the main [place], will remain relatively unchanged. New reporting parameters and units will now be reported for all campuses. Abhijit Farr MD URINE ORDERABLES [facility] Unless otherwise noted, all lab tests performed by: Division of Pathology and Laboratory Medicine [address] [place] [id number] * (ABNORMAL) Urine Culture (11/04/2023 5:56 AM CDT) Only the most recent of7 resultswithin the time period is included. Urine Culture 10-50,000 CFU/mL Escherichia coli(A) 11/06/2023 8:07 AM T [facility] Urine Voided urine specimen / Unknown Non-blood Collection / Unknown 11/04/2023 5:56 AM CDT 11/04/2023 6:30 AM CDT Narrative [facility] - 11/06/2023 8:07 AM CDT Culture also growing: Normal site елена. Organism Antibiotic Method Susceptibility Escherichia coli Ampicillin MINIMUM INHIBIT ORY CONCENTRATION 8 mcg/mL: Susceptible Escherichia coli Amoxicillin/Clavulanate MINIMUM INHIBITORY CONCENTRATION 4 mcg/mL: Susceptible Escherichia coli Ampicillin/Sulbactam MINIMUM IN HIBITORY CONCENTRATION <=2 mcg/mL: Susceptible Escherichia coli Piperacillin/Tazobactam MINIMUM INHIBITORY CONCENTRATION <=4 mcg/mL: Susceptible Escherichia coli Cefpodoxime MINIMUM INHIBIT ORY CONCENTRATION 0.5 mcg/mL: Susceptible Escherichia coli Cefotaxime MINIMUM INHIBIT [...] Escherichia coli Nitrofurantoin MINIMUM INHIBIT ORY CONCENTRATION 32 mcg/mL: Susceptible Escherichia coli Trimethoprim/Sulfame tho xazole MINIMUM INHIBITORY CONCENTRATION <=20 mcg/mL: Susceptible Abhijit Farr MD MICROBIOLOGY - [facility] AL ORDERABLES Performing Organization Address [facility] Co de Phone Number [facility] Unless otherwise noted, all lab tests performed by: Division of Pathology and Laboratory Medicine [address] [place] [id number] * POC Glucose Screen - Fingerstick (11/04/2023 12:26 AM CDT) Only the most recent of9 resultswithin the time period is included. Glucose Screen 77 70 - 99 mg/dL 11/04/2023 12:28 AM CDT [facility] POC Sample Type Capillary 11/04/2023 12:28 AM CDT [facility] Blood 11/04/2023 12:2 6 AM CDT 11/04/2023 12:28 AM CDT Narrative [facility] - 11/04/2023 12:28 AM CDT Capillary blood samples, e.g. obtained [...] questionable test results by core lab methodology. Abhijit Farr MD POCT ORDERABLES - DE VICE Performing Organization Address [facility] Co de Phone Number [facility] Unless otherwise noted, all lab tests performed by: Division of Pathology and Laboratory Medicine [address] [place] [id number] * CT Head without Contrast (11/04/2023 12:12 AM CDT) Only the most recent of6 resultswithin the time period is included. Anatomical Region Laterality Modality Head Computed Tomogra phy 11/04/2023 12:2 1 AM CDT Impressions 11/04/2023 6:49 AM CDT 1. Stable imaging findings including stable right parietal hypodense subdural fluid collection. No interval new intracranial hemorrhage. 2. Extensive vasogenic edema involving right frontal and temporal deep white matter with limited visualization of treated right insular metastasis. Other metastatic lesions are not clearly visualized. Consider MRI with and without contrast for further evaluation 3. Stable ventricular size and configuration without significant mass effect or hydrocephalus. ACTIONABLE ITEMS/RECOMMENDATIONS*: None. *An Actionable Finding is [...] and agree with the final report. Narrative 11/04/2023 6:49 AM CDT FULL RESULT: Examination: CT HEAD WO CONTRAST on 11/04/2023 12:12 AM. CLINICAL HISTORY: Metastatic lung cancer INDICATION: Altered Mental Status, ams COMPARISON: CT head 10/01/2023. MRI head 10/05/2023 TECHNIQUE: CT head without IV contrast was performed. FINDINGS: Intracranial: Stable post surgical changes from left-sided craniotomy for temporal lobe mass resection. The surgical cavity measures 2.8 x 2.5 cm with similar focal eccentric calcification noted more posteriorly. Stable right parietal subdural collection measuring 11 mm in greatest thickness, unchanged. Stable ventricular size and configuration with similar mild partial effacement of right ventricle frontal horn. Similar appearance of confluent hypoattenuating representing vasogenic edema in the deep white matter of right frontal and temporal region. The previously treated right anterior insular metastasis is unchanged without new mass effect identified on today's exam. Bilateral middle meningeal artery embolization is again noted. Bone: There are no suspicious lytic or sclerotic calvarial and skull base lesions. Extracranial: The orbits are unremarkable. The visualized paranasal sinuses are predominantly clear. Left mastoid effusion is present. Procedure Note Sharlene Wayne MD - 11/04/2023 FULL RESULT: Examination: CT HEAD WO CONTRAST on 11/04/2023 12:12 AM. CLINICAL HISTORY: Metastatic lung cancer INDICATION: Altered Mental Status, ams COMPARISON: CT head 10/01/2023. MRI head 10/05/2023 TECHNIQUE: CT head without IV contrast was performed. FINDINGS: Intracranial: Stable post surgical changes from left-sided craniotomy for temporal lobemass resection. The surgical cavity measures 2.8 x 2.5 cm with similarfocal eccentric calcification noted more posteriorly. Stable rightparietal subdural collection measuring 11 mm in greatest thickness,unchanged. Stable ventricular size and configuration with similar mild partialeffacement of right ventricle frontal horn. Similar appearance of confluent hypoattenuating representing vasogenicedema in the deep white matter of right frontal and temporal region. Thepreviously treated right anterior insular metastasis is unchanged withoutnew mass effect identified on today's exam. Bilateral middle meningeal artery embolization is again noted. Bone: There are no suspicious lytic or sclerotic calvarial and skull baselesions. Extracranial: The orbits are unremarkable. The visualized paranasal sinuses are predominantly clear. Left mastoid effusion is present. IMPRESSION: 1. Stable imaging findings including stable right parietal hypodensesubdural fluid collection. No interval new intracranial hemorrhage. 2. Extensive vasogenic edema involving right frontal and temporal deepwhite matter with limited visualization of treated right insularmetastasis. Other metastatic lesions are not clearly visualized. ConsiderMRI with and without contrast for further evaluation 3. Stable ventricular size and configuration without significant masseffect or hydrocephalus. ACTIONABLE ITEMS/RECOMMENDATIONS*: None. *An Actionable Finding is [...] present, and agree with the final report. Abhijit Farr MD IMG CT ORDERABLES * X-ray Chest 1 View (11/04/2023 12:07 AM CDT) Only the most recent of5 resultswithin the time period is included. Anatomical Region Laterality Modality Chest Digital Radiogra phy 11/04/2023 5:48 AM CDT Impressions 11/04/2023 5:50 AM CDT Impression: No evidence of acute or neoplastic disease. ACTIONABLE ITEMS/RECOMMENDATIONS*: None. *An Actionable Finding is a finding that may be unrelated to the original reason for imaging but potentially actionable, meaning further investigation may be necessary. The Actionable Findings Vigilance Unit (AFVU) assists medical providers with responding to additional radiologic findings that are unexpected and potentially actionable. Narrative 11/04/2023 5:50 AM CDT FULL RESULT: Examination: XR CHEST 1 VW on November 04, 2023 at 11:54 AM. Clinical History: Adenocarcinoma the right lower lobe of the lung, thyroid cancer Indication: Altered Mental Status Comparison: October 01, 2023 Technique: Frontal radiograph of the chest Findings: Lungs/Pleura/Mediastinum: The lungs are clear. The cardiac silhouette is within normal limits. A man-made object again overlies the area of the gastroesophageal junction. Right upper quadrant surgical clips also again noted. Procedure Note Alberta Hernandes MD - 11/04/2023 FULL RESULT: Examination: XR CHEST 1 VW on November 04, 2023 at 11:54 AM. Clinical History: Adenocarcinoma the right lower lobe of the lung, thyroidcancer Indication: Altered Mental Status Comparison: October 01, 2023 Technique: Frontal radiograph of the chest Findings: Lungs/Pleura/Mediastinum: The lungs are clear. The cardiac silhouette iswithin normal limits. A man-made object again overlies the area of thegastroesophageal junction. Right upper quadrant surgical clips also againnoted. IMPRESSION: Impression: No evidence of acute or neoplastic disease. ACTIONABLE ITEMS/RECOMMENDATIONS*: None. *An Actionable Finding is a finding that may be unrelated to the originalreason for imaging but potentially actionable, meaning furtherinvestigation may be necessary. The Actionable Findings Vigilance Unit(AFVU) assists medical providers with responding to additional radiologicfindings that are unexpected and potentially actionable. Abhijit Farr MD IMG DIAGNOSTIC IMAGI NG ORDERABLES * POC VBG+LAC (11/04/2023 12:03 AM CDT) Only the most recent of5 resultswithin the time period is included. Pathologist [facility] POC VB pH. 7.377 7.310 - 7.410 11/04/2023 12:10 AM CDT [facility] POC VB pCO2. 41.5 41.0 - 51.0 mmHg 11/04/2023 12:10 AM CDT [facility] POC VB pO2. 25 mmHg 11/04/2023 12:10 AM CDT [facility] POC VB TCO2 26 24 - 29 mmol/L 11/04/2023 12:10 AM CDT [facility] POC VB Bicarb 24.4 23.0 - 28.0 mmol/L 11/04/2023 12:10 AM CDT [facility] POC VB Base Excess -1 -2 - 3 mmol/L 11/04/2023 12:10 AM CDT [facility] POC VB O2 Sat 45 % 11/04/2023 12:10 AM CDT [facility] POC VB LAC 0.91 0.90 - 1.70 mmol/L 11/04/2023 12:10 AM CDT [facility] POC FiO2 11/04/2023 12:10 AM CDT [facility] POC Sample Type Venous 11/04/2023 12:10 AM CDT [facility] Blood 11/04/2023 12:0 3 AM CDT 11/04/2023 12:10 AM CDT Narrative [facility] - 11/04/2023 12:10 AM CDT Method description: The i-STAT is an [...] measure analyte concentration by an electrochemical assay. Abhijit Farr MD POCT ORDERABLES - DE VICE [facility] Unless otherwise noted, all lab tests performed by: Division of Pathology and Laboratory Medicine [address] [place] [id number] * Fractionated Bilirubin (11/03/2023 11:47 PM CDT) Only the most recent of4 resultswithin the time period is included. Bilirubin Direct 11/04/19 12:21 AM CDT [facility] Comment: Direct and indirect bilirubin will not be reported when Total bilirubin result is <0.3 mg/dL Indocyanine Green (ICG) may cause falsely elevated bilirubin results. Total and direct bilirubin must not be measured from samples containing indocyanine green. Bilirubin Indirect 2023 12:21 AM CDT [facility] Comment:Direct and indirect bilirubin will not be reported when Total bilirubin result is <0.3 mg/dL Bilirubin Total <0.3 0.0 - 1.2 mg/dL 11/04/2023 12:21 AM CDT [facility] Comment: Direct and indirect bilirubin will [...] blood specimen / Unknown Venipuncture / Unknown 11/03/2023 11:47 PM CDT 11/03/2023 11:50 PM CDT Abhijit Farr MD LAB BLOOD ORDERABLES [facility] Unless otherwise noted, all lab tests performed by: Division of Pathology and Laboratory Medicine [address] [place] [address] [id number] * aPTT (11/03/2023 11:47 PM CDT) Only the most recent of4 resultswithin the time period is included. Activated PTT 28.7 24.1 - 35.5 second(s) 11/04/2023 12:15 AM CDT [facility] Blood Peripheral blood specimen / Unknown Venipuncture / Unknown 11/03/2023 11:47 PM CDT 11/03/2023 11:50 PM CDT Abhijit Farr MD LAB BLOOD ORDERABLES [facility] Unless otherwise noted, all lab tests performed by: Division of Pathology and Laboratory Medicine [address] [place] [address] [id number] * Prothrombin Time with INR (11/03/2023 11:47 PM CDT) Only the most recent of4 resultswithin the time period is included. Prothrombin Time 13.5 11.9 - 14.5 second(s) 11/04/2023 12:15 AM CDT [facility] International Normalization Ratio 1.04 0.87 - 1.12 11/04/2023 12:15 AM CDT [facility] Blood Peripheral blood specimen / Unknown Venipuncture / Unknown 11/03/2023 11:47 PM CDT 11/03/2023 11:50 PM CDT Abhijit Farr MD LAB BLOOD ORDERABLES Performing Organization Address City/[facility]/ZIP Co de Phone Number [facility] Unless otherwise noted, all lab tests performed by: Division of Pathology and Laboratory Medicine [address] [place] [phone] * TSH (11/03/2023 11:47 PM CDT) Thyroid Stimulating Hormone 3.37 0.27 - 4.20 mcunit/mL 11/04/2023 8:57 AM CDT [facility] Blood Peripheral blood specimen / Unknown Venipuncture / Unknown 11/03/2023 11:47 PM CDT 11/03/2023 11:50 PM CDT Colby Malloy MD LAB BLOOD ORDERABLES [facility] Unless otherwise noted, all lab tests performed by: Division of Pathology and Laboratory Medicine [address] [place] [address] [id number] * Free T4 (11/03/2023 11:47 PM CDT) T4 (Thyroxine) Free 1.20 0.92 - 1.68 ng/dL 11/04/2023 8:57 AM CDT [facility] Blood Peripheral blood specimen / Unknown Venipuncture / Unknown 11/03/2023 11:47 PM CDT 11/03/2023 11:50 PM CDT Colby Malloy MD LAB BLOOD ORDERABLES Performing Organization Address City/[facility]/ZIP Co de Phone Number [facility] Unless otherwise noted, all lab tests performed by: Division of Pathology and Laboratory Medicine [address] [place] [phone] * (ABNORMAL) LDH (11/03/2023 11:47 PM CDT) Only the most recent of4 resultswithin the time period is included. LDH 216(H) 135 - 214 U/L 11/04/2023 12:21 AM CDT [facility] Blood Peripheral blood specimen / Unknown Venipuncture / Unknown 11/03/2023 11:47 PM CDT 11/03/2023 11:50 PM CDT Narrative [facility] - 11/04/2023 12:21 AM CDT Results greater than 1651 U/L may not be reliable due to matrix effect with extended dilution as it exceeds the electric accounting machine operator's recommended limit. Caution should be exercised when interpreting such values and done in conjunction with clinical context. Abhijit Farr MD LAB BLOOD ORDERABLES [facility] Unless otherwise noted, all lab tests performed by: Division of Pathology and Laboratory Medicine [address] [place] [phone] * MRI Brain with and without Contrast [...] metastatic lung adenocarcinoma status post whole brainradiation 2016, craniotomy with left temporal tumor resection 02/10/2020,whole [...] and agree with the final report. [facility] [employer] [facility] [place] ORDERABLES * (ABNORMAL) Urinalysis with Microscopic (10/01/2023 8:30 PM CDT) Urine Appearance Clear Clear 10/01/19 24 8:53 PM CDT [facility] Comment:This result was prev iously suppressed from the chart. Urine Color Straw Colorless, Straw, Yellow, Dark Yellow, Straw-Yellow 10/01/2023 8:53 PM CDT [facility] Comment:This result was prev iously suppressed from the chart. Urine Specific [place]seo 1.021 1.003 - 1.035 10/01/2023 8:53 PM CDT [facility] Comment:This result was prev iously suppressed from the chart. Urine pH 6.5 5.0 - 8.0 10/01/2023 8:53 PM CDT [facility] Comment:This result was prev iously suppressed from the chart. Urine Glucose Negative Negative mg/dL 10/01/2023 8:53 PM CDT [facility] Comment:This result was prev iously suppressed from the chart. Urine Ketones Negative Negative mg/dL 10/01/2023 8:53 PM CDT [facility] Comment:This result was prev iously suppressed from the chart. Urine Blood Small(A) Negative 10/01/2023 8:53 PM CDT [facility] Comment:This result was prev iously suppressed from the chart. Urine Protein Negative Negative mg/dL 10/01/2023 8:53 PM CDT [facility] Comment:This result was prev iously suppressed from the chart. Urine Bilirubin Negative Negative 8:53 PM CDT [facility] Urine Urobilinogen Negative Negative 10/01/2023 8:53 PM CDT [facility] Urine Nitrite Negative Negative 10/01/2023 8:53 PM CDT [facility] Comment:This result was prev iously suppressed from the chart. Urine Leukocyte Esterase Negative Negative 10/01/2023 8:53 PM CDT [facility] Comment:This result was prev iously suppressed from the chart. Urine WBC <1 <=2 /HPF 10/01/2023 8:53 PM CDT [facility] Urine RBC 1 <=2 /HPF 10/01/2023 8:53 PM CDT [facility] Urine Mucous Not Seen Not Seen, Trace /HPF 10/01/2023 8:53 PM CDT [facility] Comment:This result was prev iously suppressed from the chart. Urine Bacteria Not Seen Not Seen /HPF 10/01/2023 8:53 PM CDT [facility] Comment:This result was prev iously suppressed from the chart. Urine Squamous Epithelial Cells OCC Not Seen, OCC, Rare /HPF 10/01/2023 8:53 PM CDT [facility] Comment:This result was prev iously suppressed from the chart. Urine (Urine Clean Catch) Non-blood Collection / Unknown 10/01/2023 8:30 PM CDT 10/01/2023 8:33 PM CDT Narrative [facility] - 10/01/2023 8:53 PM CDT Some reporting parameters within the Urinalysis test have changed due to the implementation of new instrumentation in the Main [place], allowing greater sensitivity of measurement. Urinalysis results reported by the [facility] using existing instrumentation, as well as Urinalysis testing performed manually or by back-up methodology at the main campus, will remain relatively unchanged. New reporting parameters and units will now be reported for all [facility]. Erasmo Gamez MD URINE ORDERABLES [facility] Unless otherwise noted, all lab tests performed by: Division of Pathology and Laboratory Medicine [address] [place] [address] [id number] * Blood Culture (10/01/2023 11:58 AM CDT) Only the most recent of6 resultswithin the time period is included. Pathologist [facility] Blood Culture No Growth. 10/06/2023 1:01 PM CDT [facility] Blood Peripheral blood specimen / Unknown Venipuncture / Unknown 10/01/2023 11:58 AM CDT 10/01/2023 12:05 PM CDT Cathy Ramirez MD MICROBIOLOGY - GENE RAL ORDERABLES [facility] Unless otherwise noted, all lab tests performed by: Division of Pathology and Laboratory Medicine [address] [place] [phone] * (ABNORMAL) Basic Metabolic Panel- Total Calcium (08/11/2023 5:02 AM CDT) Only the most recent of17 resultswithin the time period is included. eGFR 103 >=60 mL/min/1.7 3 sq. m 08/11/2023 5:40 AM CDT [facility] Comment: The eGFRcr is calculated with [...] - 10.2 mg/dL 08/11/2023 5:40 AM CDT [facility] Sodium Level 141 136 - 145 mmol/L 08/11/2023 5:40 AM CDT [facility] Potassium Level 3.8 3.4 - 4.5 mmol/L 08/11/2023 5:40 AM CDT [facility] Chloride 106 98 - 107 mmol/L 08/11/2023 5:40 AM CDT [facility] CO2 24 22 - 29 mmol/L 08/11/2023 5:40 AM CDT [facility] Anion Gap 11 4 - 14 mmol/L 08/11/2023 5:40 AM CDT [facility] Creatinine 0.71 0.51 - 0.95 mg/dL 08/11/2023 5:40 AM CDT [facility] BUN 11 6 - 23 mg/dL 08/11/2023 5:40 AM CDT [facility] Glucose Level 92 70 - 99 mg/dL 08/11/2023 5:40 AM CDT [facility] Comment: Effective 10/13/15, the glucose reference intervals have been updated based on [place] Diabetes [employer] guidelines (Standards of Medical Care [...] CDT Asya Egan MD LAB BLOOD ORDERABLES [facility] Unless otherwise noted, all lab tests performed by: Division of Pathology and Laboratory Medicine [address] [place] [phone] * Gastrointestinal Multiplex PCR Panel (08/04/2023 3:24 PM CDT) Only the most recent of3 resultswithin the time period is included. Campylobacter Not Detected Not Detected 08/04/2023 6:07 PM CDT [facility] Plesiomonas shigelloides Not Detected Not Detected 08/04/2023 6:07 PM CDT [facility] Salmonella Not Detected Not Detected 08/04/2023 6:07 PM CDT [facility] Vibrio Not Detected Not Detected 08/04/2023 6:07 PM CDT [facility] Vibrio cholerae Not Detected Not Detected 08/04/2023 6:07 PM CDT [facility] Yersinia enterocolitica Not Detected Not Detected 08/04/2023 6:07 PM CDT [facility] Enteroaggregative E. coli (EAEC) Not Detected Not Detected 08/04/2023 6:07 PM CDT [facility] Enteropathogenic E. coli (EPEC) Not Detected Not Detected 08/04/2023 6:07 PM CDT [facility] Enterotoxigenic E. coli (ETEC) LT/ST Not Detected Not Detected 08/04/2023 6:07 PM CDT [facility] Shiga-like toxin-producing E. coli (STEC) Stx1/Stx2 Not Detected Not Detected 08/04/2023 6:07 PM CDT [facility] E. coli O157 N/A Not Detected 08/04/2023 6:07 PM CDT [facility] Shigella/Enteroinvas lyndsay E. coli (EIEC) Not Detected Not Detected 08/04/2023 6:07 PM CDT [facility] Cryptosporidium Not Detected Not Detected 08/04/2023 6:07 PM CDT [facility] Cyclospora cayetanensis Not Detected Not Detected 08/04/2023 6:07 PM CDT [facility] Entamoeba histolytica Not Detected Not Detected 08/04/2023 6:07 PM CDT [facility] Giardia lamblia Not Detected Not Detected 08/04/2023 6:07 PM CDT [facility] Adenovirus F40/41 Not Detected Not Detected 08/04/2023 6:07 PM CDT [facility] Astrovirus Not Detected Not Detected 08/04/2023 6:07 PM CDT [facility] Norovirus GI/GII Not Detected Not Detected 08/04/2023 6:07 PM CDT [facility] Rotavirus A Not Detected Not Detected 08/04/2023 6:07 PM CDT [facility] Sapovirus (I, II, IV, V) Not Detected Not Detected 08/04/2023 6:07 PM CDT [facility] C. difficile Refer to separate C. difficile DNA Detection assay for results. 08/04/2023 6:07 PM CDT [facility] Stool Rectum structure / Unknown Non-blood Collection / Unknown 08/04/2023 3:24 PM CDT 08/04/2023 4:27 PM CDT Narrative [facility] - 08/04/2023 6:07 PM CDT The assay is a qualitative multiplex PCR assay to aid in the diagnosis of gastrointestinal infection through simultaneous qualitative detection and identification of multiple GI pathogens in diarrheal specimens collected in [employer] transport media obtained from individuals suspected of gastrointestinal infections. Testing is performed using the [employer] Gastrointestinal (GI) Panel on the [employer] System. The following organisms are identified using the [employer] GI Panel: Campylobacter spp., Plesiomonas shigelloides, [...] verified by the microbiology laboratory at the [facility]. Results must be interpreted within the context of all relevant clinical and laboratory findings. Assay should not be used for monitoring response to therapy. Dany Bonilla MD MICROBIOLOGY - [facility] ORDERABLES [facility] Unless otherwise noted, all lab tests performed by: Division of Pathology and Laboratory Medicine [address] [place] [phone] * C. difficile DNA Detection (08/04/2023 3:24 PM CDT) Only the most recent of4 resultswithin the time period is included. C. difficile - DNA Negative Negative 08/05/2023 10:34 AM CDT [facility] C. difficile - EIA Test Not Performed Negative 08/05/2023 10:34 AM CDT [facility] C. difficile - Interpretation C. difficile DNA detection was negative making C. difficile infection highly unlikely in this patient. EIA not performed. 08/05/2023 10:34 AM CDT [facility] Stool Rectum structure / Unknown Non-blood Collection / Unknown 08/04/2023 3:24 PM CDT 08/04/2023 4:27 PM CDT Narrative [facility] - 08/05/2023 10:34 AM CDT Qualitative detection of C. difficile DNA performed using helicase-dependent amplification of a conserved region of a pathogenicity locus (PaLoc) in toxigenic C. difficile strains. It is an FDA-approved assay performed on the [place] Instrument from [employer] and is intended for use as an [...] rapid immunoassay using the FDA-approved ImmunoCard by [employer]. Patients positive for BOTH C. difficile DNA [...] verified by the microbiology laboratory at the [facility]. Results must be interpreted within the context of all relevant clinical and laboratory findings. Dany Bonilla MD MICROBIOLOGY - [facility] ORDERABLES [facility] Unless otherwise noted, all lab tests performed by: Division of Pathology and Laboratory Medicine [address] [place] [phone] * (ABNORMAL) Procalcitonin (08/04/2023 4:19 AM CDT) Only the most recent of3 resultswithin the time period is included. Procalcitonin 0.48(H) <=0.08 ng/mL 08/04/2023 10:15 AM CDT [facility] Blood Peripheral blood specimen / Unknown Venipuncture / Unknown 08/04/2023 4:19 AM CDT 08/04/2023 5:16 AM CDT Narrative [facility] - 08/04/2023 10:15 AM CDT Procalcitonin [...] with extended dilution as it exceeds the electric accounting machine operator's recommended limit. Caution should be exercised when interpreting such values and done in conjunction with clinical context. Dany Bonilla MD LAB BLOOD ORDERABLES [facility] Unless otherwise noted, all lab tests performed by: Division of Pathology and Laboratory Medicine [address] [place] [phone] * (ABNORMAL) Hepatic Function Panel (08/04/2023 4:19 AM CDT) Only the most recent of2 resultswithin the time period is included. Bilirubin Total <0.3 0.0 - 1.2 mg/dL 08/04/2023 11:14 AM CDT [facility] Comment: Direct and indirect bilirubin will not be reported when Total bilirubin result is <0.3 mg/dL Indocyanine Green (ICG) may cause falsely elevated bilirubin results. Total and direct bilirubin must not be measured from samples containing indocyanine green. False elevation of total bilirubin can be seen in patients with IgG concentrations above 28 g/L. Bilirubin Direct 08/04/19 24 11:14 AM CDT [facility] Comment: Direct and indirect bilirubin will not be reported when Total bilirubin result is <0.3 mg/dL Indocyanine Green (ICG) may cause falsely elevated bilirubin results. Total and direct bilirubin must not be measured from samples containing indocyanine green. Bilirubin Indirect 2023 11:14 AM CDT [facility] Comment:Direct and indirect bilirubin will not be reported when Total bilirubin result is <0.3 mg/dL Tot Protein 6.3(L) 6.4 - 8.3 gm/dL 08/04/2023 11:14 AM CDT [facility] Alkaline Phosphatase 93 35 - 104 U/L 08/04/2023 11:14 AM CDT [facility] Albumin Level 3.0(L) 3.5 - 5.2 gm/dL 08/04/2023 11:14 AM CDT [facility] AST 14 <=32 U/L 08/04/2023 11:14 AM CDT [facility] ALT 6 <=33 U/L 08/04/2023 11:14 AM CDT [facility] Blood Peripheral blood specimen / Unknown Venipuncture / Unknown 08/04/2023 4:19 AM CDT 08/04/2023 5:16 AM CDT Dany Bonilla MD LAB BLOOD ORDERABLES [facility] Unless otherwise noted, all lab tests performed by: Division of Pathology and Laboratory Medicine [address] [place] [phone] * Respiratory Multiplex PCR Panel, Nasopharyngeal Swab (08/03/2023 11:06 AM CDT) Adenovirus Not Detected Not Detected 08/03/2023 2:43 PM CDT [facility] Coronavirus 229E Not Detected Not Detected 08/03/2023 2:43 PM CDT [facility] Coronavirus HKU1 Not Detected Not Detected 08/03/2023 2:43 PM CDT [facility] Coronavirus NL63 Not Detected Not Detected 08/03/2023 2:43 PM CDT [facility] Coronavirus OC43 Not Detected Not Detected 08/03/2023 2:43 PM CDT [facility] COVID-19 (SARS-CoV-2) Not Detected Not Detected 08/03/2023 2:43 PM CDT [facility] Human Metapneumovirus Not Detected Not Detected 08/03/2023 2:43 PM CDT [facility] Human Rhinovirus/Enterov irus Not Detected Not Detected 08/03/2023 2:43 PM CDT [facility] Influenza A Not Detected Not Detected 08/03/2023 2:43 PM CDT [facility] Influenza A H1 Not Detected Not Detected 08/03/2023 2:43 PM CDT [facility] Influenza A H1 2009 Not Detected Not Detected 08/03/2023 2:43 PM CDT [facility] Influenza A H3 Not Detected Not Detected 08/03/2023 2:43 PM CDT [facility] Influenza B Not Detected Not Detected 08/03/2023 2:43 PM CDT [facility] Parainfluenza Virus 1 Not Detected Not Detected 08/03/2023 2:43 PM CDT [facility] Parainfluenza Virus 2 Not Detected Not Detected 08/03/2023 2:43 PM CDT [facility] Parainfluenza Virus 3 Not Detected Not Detected 08/03/2023 2:43 PM CDT [facility] Parainfluenza Virus 4 Not Detected Not Detected 08/03/2023 2:43 PM CDT [facility] Respiratory Syncytial Virus Not Detected Not Detected 08/03/2023 2:43 PM CDT [facility] Bordetella parapertussis Not Detected Not Detected 08/03/2023 2:43 PM CDT [facility] Bordetella pertussis Not Detected Not Detected 08/03/2023 2:43 PM CDT [facility] Chlamydophila pneumoniae Not Detected Not Detected 08/03/2023 2:43 PM CDT [facility] Mycoplasma pneumoniae Not Detected Not Detected 08/03/2023 2:43 PM CDT [facility] Swab Nasopharyngeal structure / Unknown Non-blood Collection / Unknown 08/03/2023 11:06 AM CDT 08/03/2023 11:26 AM CDT [facility] - 08/03/2023 2:43 PM CDT The assay is a qualitative multiplex PCR assay to aid in the diagnosis of respiratory pathogens through simultaneous qualitative detection and identification of multiple pathogens directly from nasopharyngeal swabs ([employer]OD MAKER) from individuals with respiratory symptoms. Testing is performed using the [employer] FilmArray Respiratory Panel 2.1 (RP2.1) on the [employer] System. The following organisms are identified using the [employer] RP 2.1 Panel: Adenovirus, Human Coronavirus [...] verified by the microbiology laboratory at the [facility] (CLIA Accreditation # [id number] and CAP Accreditation # [id number]). Results must be interpreted within the context of all relevant clinical and laboratory findings. Assay should not be used for monitoring response to therapy. Dany Bonilla MD MICROBIOLOGY - [facility] ORDERABLES [facility] Unless otherwise noted, all lab tests performed by: Division of Pathology and Laboratory Medicine [address] [place] [address] [phone] * (ABNORMAL) Urinalysis with Reflex Culture (08/02/2023 5:30 PM CDT) Urine Appearance Cloudy(A) Clear 08/02/19 5:50 PM CDT [facility] Comment:This result was prev iously suppressed from the chart. Urine Color Yellow Colorless, Straw, Yellow, Dark Yellow, Straw-Yellow 08/02/2023 5:50 PM CDT [facility] Comment:This result was prev iously suppressed from the chart. Urine Specific [place] 1.011 1.003 - 1.035 08/02/2023 5:50 PM CDT [facility] Comment:This result was prev iously suppressed from the chart. Urine pH 6.0 5.0 - 8.0 08/02/2023 5:50 PM CDT [facility] Comment:This result was prev iously suppressed from the chart. Urine Glucose Negative Negative mg/dL 08/02/2023 5:50 PM CDT [facility] Comment:This result was prev iously suppressed from the chart. Urine Ketones 20(A) Negative mg/dL 08/02/2023 5:50 PM CDT [facility] Comment:This result was prev iously suppressed from the chart. Urine Blood Small(A) Negative 08/02/2023 5:50 PM CDT [facility] Comment:This result was prev iously suppressed from the chart. Urine Protein 30(A) Negative mg/dL 08/02/2023 5:50 PM CDT [facility] Comment:This result was prev iously suppressed from the chart. Urine Bilirubin Negative Negative 5:50 PM CDT [facility] Urine Urobilinogen Negative Negative 08/02/2023 5:50 PM CDT [facility] Urine Nitrite Negative Negative 08/02/2023 5:50 PM CDT [facility] Comment:This result was prev iously suppressed from the chart. Urine Leukocyte Esterase Large(A) Negative 08/02/2023 5:50 PM CDT [facility] Comment:This result was prev iously suppressed from the chart. Urine Mucous Not Seen Not Seen, Trace /HPF 08/02/2023 5:50 PM CDT [facility] Comment:This result was prev iously suppressed from the chart. Urine Bacteria 1+(A) Not Seen /HPF 08/02/2023 5:50 PM CDT [facility] Comment:This result was prev iously suppressed from the chart. Urine Squamous Epithelial Cells Not Seen Not Seen, OCC, Rare /HPF 08/02/2023 5:50 PM CDT [facility] Comment:This result was prev iously suppressed from the chart. Urine WBC 44(H) <=2 /HPF 08/02/2023 5:50 PM CDT [facility] Urine RBC 7(H) <=2 /HPF 08/02/2023 5:50 PM CDT [facility] Urine Voided urine specimen / Unknown Non-blood Collection / Unknown 08/02/2023 5:30 PM CDT 08/02/2023 5:36 PM CDT Narrative [facility] - 08/02/2023 5:50 PM CDT Some reporting parameters within the Urinalysis test have changed due to the implementation of new instrumentation in the [facility], allowing greater sensitivity of measurement. Urinalysis results reported by the [facility] using existing instrumentation, as well as Urinalysis testing performed manually or by back-up methodology at the [facility], will remain relatively unchanged. New reporting parameters and units will now be reported for all campuses. Sujata Grant MD URINE ORDERABLES [facility] Unless otherwise noted, all lab tests performed by: Division of Pathology and Laboratory Medicine [address] [place] [phone] * EEG (08/01/2023 8:54 PM CDT) Narrative Brooklyn Mckeon MD - 08/01/2023 8:54 PM CDT Brooklyn Mckeon MD 08/02/2023 10:42 AM EEG REPORT Patient: Zari Posadas Age: 52 y.o. Consult Service: Neuro-Oncology Consult Date: August 01, 2023 [employer] Field Supervisor: BROOKLYN MCKEON MD CLINICAL HISTORY This is [...] Metzger MD ECG ORDERABLES Performing Organization Address [facility]/ZIP Co de Phone Number CAR IECG * Troponin T (In-House) (07/30/2023 11:52 PM CDT) Troponin T 19 <=19 ng/L 07/31/2023 12:23 AM CDT [facility] Blood Peripheral blood specimen / Unknown Venipuncture / Unknown 07/30/2023 11:52 PM CDT 07/30/2023 11:55 PM CDT Narrative [facility] - 07/31/2023 12:23 AM CDT Reference [...] MD LAB BLOOD ORDERABLES Performing Organization Address City/[facility]/ZIP Co de Phone Number [facility] Unless otherwise noted, all lab tests performed by: Division of Pathology and Laboratory Medicine [address] [place] [address] * (ABNORMAL) Cardiac Panel (07/30/2023 8:55 PM CDT) Creatine Kinase 53 26 - 192 U/L 07/30/2023 9:36 PM CDT [facility] CKMB <2.0 <=5.3 ng/mL 07/30/2023 9:36 PM CDT [facility] Troponin T 22(H) <=19 ng/L 07/30/2023 9:36 PM CDT [facility] Comment: < 19 ng/L Suggest retest [...] CDT Michelle Metzger MD LAB BLOOD ORDERABLES [facility] Unless otherwise noted, all lab tests performed by: Division of Pathology and Laboratory Medicine [address] [place] [phone] * (ABNORMAL) Potassium Level (07/28/2023 7:10 PM CDT) Potassium Level 2.9(L) 3.4 - 4.5 mmol/L 07/28/2023 7:44 PM CDT [facility] Blood Peripheral blood specimen / Unknown Venipuncture / Unknown 07/28/2023 7:10 PM CDT 07/28/2023 7:13 PM CDT Narrative [facility] - 07/28/2023 7:44 PM CDT Reference range established based on adult population Tammy Archuleta PA-C LAB BLOOD ORDERABLES Performing Organization Address [facility] Co de Phone Number [facility] Unless otherwise noted, all lab tests performed by: Division of Pathology and Laboratory Medicine [address] [place] [phone] * (ABNORMAL) Lactoferrin Detection (07/25/2023 10:28 PM CDT) Only the most recent of2 resultswithin the time period is included. Lactoferrin - Interpretation Positive( A) Negative 07/26/2023 8:02 AM CDT [facility] Comment:Assay positive for l actoferrin indicating inflammatory cells present in fecal specimen. Recommend clinical correlation and further testing to identify cause of inflammation. Stool Rectum structure / Unknown Non-blood Collection / Unknown 07/25/2023 10:28 PM CDT 07/25/2023 11:16 PM CDT Narrative [facility] - 07/26/2023 8:02 AM CDT Testing [...] verified by the microbiology laboratory at the [facility]. Results must be interpreted within the context of all relevant clinical and laboratory findings. Tammy Archuleta PA-C MICROBIOLOGY - GENER AL ORDERABLES Performing Organization Address [facility]/ZIP Co de Phone Number [facility] Unless otherwise noted, all lab tests performed by: Division of Pathology and Laboratory Medicine [address] [place] [phone] * (ABNORMAL) Calprotectin, Stool (07/25/2023 10:21 PM CDT) Only the most recent of2 resultswithin the time period is included. Calprotectin Stl-[place]val[place] 89.3(H) <50.0 (Normal) mcg/g 07/30/2023 11:40 AM CDT [facility] Comment: Interpretation: Borderline (50.0-120 mcg/g) Test Performed by: [facility] [address] [place] [address] Claims Analyst: Shad Metzger M.D. Ph.D.; CLIA# [id number] Stool Rectum structure / Unknown Non-blood Collection / Unknown 07/25/2023 10:21 PM CDT 07/25/2023 11:16 PM CDT Tammy Archuleta PA-C MICROBIOLOGY - GENER AL ORDERABLES [facility] * CT Chest Abdomen Pelvis with Contrast (07/23/2023 12:02 PM CDT) Only the most recent of3 [...] resultswithin the time period is included. Pathologist [facility] Creatine Kinase 48 26 - 192 U/L 07/23/2023 10:35 AM CDT [facility] Blood Peripheral blood specimen / Unknown Venipuncture / Unknown 07/23/2023 9:47 AM CDT 07/23/2023 9:47 AM CDT Dalia Weiner APRN LAB BLOOD ORDERABL ES [facility] Unless otherwise noted, all lab tests performed by: Division of Pathology and Laboratory Medicine [address] [place] [phone] * Hemoglobin A1c (07/05/2023 5:51 AM CDT) Pathologist [facility] Hemoglobin A1c 5.3 4.3 - 5.6 % 07/05/2023 8:26 AM CDT [facility] Blood Peripheral blood specimen / Unknown Venipuncture / Unknown 07/05/2023 5:51 AM CDT 07/05/2023 6:18 AM CDT Narrative [facility] - 07/05/2023 8:26 AM CDT HbA1c values >=6.5% are diagnostic of diabetes mellitus. Diagnosis should be confirmed by repeat testing. Therapeutic Action suggested: >8.0% HbA1c; Goal of therapy: <7.0% HbA1c Monica Alberto MEZA LAB BLOOD ORDERABLES [facility] Unless otherwise noted, all lab tests performed by: Division of Pathology and Laboratory Medicine [facility] [place] [address] * EEG (07/04/2023 7:57 PM CDT) Narrative Brooklyn Mckeon MD - 07/04/2023 7:57 PM CDT Brooklyn Mkceon MD 07/04/2023 8:01 PM EEG REPORT Patient: Zari Posadas Age: 52 y.o. Consult Service: Neuro-Oncology Consult Date: July 04, 2023 [employer] Field Supervisor: BROOKLYN MCKEON MD CLINICAL HISTORY This is 52 y.o. year-old with metastatic lung cancer to the brain. REQUESTING PHYSICIAN Dr. Kalpana Cannon TECHNIQUE Inpatient bedside study STATE Awake/Sleep MEDS [facility] FINDINGS The background is better organized on [...] seizures occurred during the recording. Saloni Man HARDWARE DESIGNER,TAPER/FINISHER NEUROLOGY ORDERA BLES * Historical ABORh (07/03/2023 6:54 PM CDT) ABORh A POS 07/03/2023 6:55 PM CDT [facility] Blood Peripheral blood specimen / Unknown 07/03/2023 6:54 PM CDT 07/03/2023 6:54 PM CDT Zuri Farr MD BLOOD BANK TEST ORDE LÁZARO [facility] [address] [place] [address] * CKMB (07/03/2023 3:34 PM CDT) CKMB 3.9 <=5.3 ng/mL 07/03/2023 7:04 PM CDT [facility] Blood Peripheral blood specimen / Unknown Venipuncture / Unknown 07/03/2023 3:34 PM CDT 07/03/2023 6:32 PM CDT Abhijit Farr MD LAB BLOOD ORDERABLES [facility] Unless otherwise noted, all lab tests performed by: Division of Pathology and Laboratory Medicine [address] [place] [phone] * (ABNORMAL) Transferrin with TIBC (06/30/2023 4:26 AM CDT) Transferrin 167(L) 200 - 360 mg/dL 06/30/2023 7:41 AM CDT [facility] Total Iron Binding Capacity 234(L) 250 - 450 mcg/dL 06/30/2023 7:41 AM CDT [facility] Blood Peripheral blood specimen / Unknown Venipuncture / Unknown 06/30/2023 4:26 AM CDT 06/30/2023 4:41 AM CDT Isma Santoyo MD LAB BLOOD ORDERABL ES [facility] Unless otherwise noted, all lab tests performed by: Division of Pathology and Laboratory Medicine [address] [place] [address] [phone] * Iron Level (06/30/2023 4:26 AM CDT) Iron Level 43 37 - 145 mcg/dL 06/30/2023 7:41 AM CDT [facility] Is patient fasting? 06/30/2023 7:41 AM CDT [facility] Blood Peripheral blood specimen / Unknown Venipuncture / Unknown 06/30/2023 4:26 AM CDT 06/30/2023 4:41 AM CDT Isma Santoyo MD LAB BLOOD ORDERABL ES [facility] Unless otherwise noted, all lab tests performed by: Division of Pathology and Laboratory Medicine [address] [place] [address] [phone] * Ferritin Level (06/30/2023 4:26 AM CDT) Ferritin Level 18 13 - 150 ng/mL 06/30/2023 7:41 AM CDT [facility] Blood Peripheral blood specimen / Unknown Venipuncture / Unknown 06/30/2023 4:26 AM CDT 06/30/2023 4:41 AM CDT Narrative [facility] - 06/30/2023 7:41 AM CDT Reference range established for age 17 - 60 years Isma Santoyo MD LAB BLOOD ORDERABL ES Performing Organization Address [facility] Co de Phone Number [facility] Unless otherwise noted, all lab tests performed by: Division of Pathology and Laboratory Medicine [address] [place] [phone] * VB Lactate (06/27/2023 5:59 PM CDT) Venous Lactate 0.6 0.5 - 1.6 mmol/L 06/27/2023 6:08 PM CDT [facility] Oxygen FLOW Rate/ FiO2 06/27/2023 6:08 PM CDT [facility] O2 Therapy NONE 06/27/2023 6:08 PM CDT [facility] Blood Peripheral blood specimen / Unknown Venipuncture / Unknown 06/27/2023 5:59 PM CDT 06/27/2023 6:07 PM CDT Amanda Pearson MD LAB BLOOD ORDERABLES Performing Organization Address City/[facility]/ZIP Co de Phone Number [facility] Unless otherwise noted, all lab tests performed by: Division of Pathology and Laboratory Medicine [address] [place] [phone] * (ABNORMAL) ESR (06/27/2023 5:59 PM CDT) Sedimentation Rate 104(H) <=30 mm/hr 2023 7:27 PM CDT [facility] Blood Peripheral blood specimen / Unknown Venipuncture / Unknown 06/27/2023 5:59 PM CDT 06/27/2023 6:04 PM CDT Amanda Pearson MD LAB BLOOD ORDERABLES [facility] Unless otherwise noted, all lab tests performed by: Division of Pathology and Laboratory Medicine [address] [place] [id number] * CRP (06/27/2023 5:59 PM CDT) Pathologist [facility] CRP (C Reactive Protein) 13.81 mg/L 06/27/2023 7:02 PM CDT [facility] Blood Peripheral blood specimen / Unknown Venipuncture / Unknown 06/27/2023 5:59 PM CDT 06/27/2023 6:04 PM CDT Narrative [facility] - 06/27/2023 7:02 PM CDT Adult Reference ranges for HS CRP assay are as follows: Reference ranges when used to assess cardiac risk: <1.00 mg/L Low cardiovascular risk 1.00-3.00 mg/L Average cardiovascular risk >3.00 mg/L High cardiovascular risk Reference ranges when used to assess inflammatory responses: Less than or equal to 10.00 mg/L. Amanda Pearson MD LAB BLOOD ORDERABLES [facility] Unless otherwise noted, all lab tests performed by: Division of Pathology and Laboratory Medicine [address] [place] [id number] * (ABNORMAL) Lipid panel (04/18/2023 2:50 PM AUTOMOBILE BUMPER STRAIGHTENER) Cholesterol Total 276(H) <=199 mg/dL 04/18/2023 4:02 PM AUTOMOBILE BUMPER STRAIGHTENER [facility] Comment: ATP III Classification of Total Cholesterol - Primary Target of Therapy (in mg/dL): <200 Desirable 200-239 Borderline high >=240 High Triglyceride 99 <=149 mg/dL 04/18/2023 4:02 PM [facility] Comment: ATP III Classification of Serum Triglycerides Primary Target of Therapy (in mg/dL): <150 Normal 150-199 Borderline high 200-499 High >=500 Very high Non-fasting triglycerides >200 mg/dL may be followed up with a fasting Lipid Panel. Calculated LDL-C may be falsely decreased when non-fasting triglycerides >200 mg/dL. HDL Cholesterol 95 >=40 mg/dL 04/18/2023 4:02 PM [facility] LDL Cholesterol 161(H) <=100 mg/dL 04/18/2023 4:02 PM [facility] Comment: ATP III Classification of LDL Cholesterol Primary Target of Therapy (in mg/dL): <100 Optimal 100-129 Near optimal/above optimal 130-159 Borderline high 160-189 High >=190 Very high Very Low Density Lipoprotein 20 mg/dL 04/18/2023 4:02 PM [facility] Is patient fasting? No 04/18/2023 4:02 PM [facility] Comment:last meal longer ray n than 4 hrs prior Blood Peripheral blood specimen / Unknown Venipuncture / Unknown 04/18/2023 2:50 PM AUTOMOBILE BUMPER STRAIGHTENER 04/18/2023 2:52 PM AUTOMOBILE BUMPER STRAIGHTENER Sindi Casiano MD LAB BLOOD ORDERABLES [facility] Unless otherwise noted, all lab tests performed by: Division of Pathology and Laboratory Medicine [address] [place] [phone] [facility] Unless otherwise noted, all lab tests performed by: Division of Pathology and Laboratory Medicine [address] [place] [phone] * (ABNORMAL) POC Creatinine (04/16/2023 4:39 PM AUTOMOBILE BUMPER STRAIGHTENER) Only the most recent of2 resultswithin the time period is included. POC Creatinine 1.2 0.6 - 1.3 mg/dL 04/16/2023 4:41 PM [facility] Comment:Medications, especia lly hydroxyurea or supplements, such as ascorbate, can interfere with test results causing a falsely and significantly higher result than expected. If a problem is suspected with a patient's result, a sample should be sent to the laboratory for confirmatory testing. POC eGFR 55(L) >=60 mL/min/1.7 3 sq. m 04/16/2023 4:41 PM [facility] Comment: The eGFRcr is calculated [...] criteria for CKD. Blood 04/16/2023 4:39 PM AUTOMOBILE BUMPER STRAIGHTENER 04/16/2023 4:41 PM AUTOMOBILE BUMPER STRAIGHTENER Narrative [facility] - 04/16/2023 4:41 PM [employer]OMOBILE BUMP[employer] STRAIGHTENER Method description: The i-STAT is an analyzer [...] Dalia Weiner APRN POCT ORDERABLES - DEVICE [facility] Unless otherwise noted, all lab tests performed by: Division of Pathology and Laboratory Medicine [address] [place] [address] * MRI Brain with and without Contrast - Frameless Gamma Knife (04/09/2023 8:55 AM AUTOMOBILE BUMPER STRAIGHTENER) Anatomical Region Laterality Modality Head Magnetic Resonan ce 04/09/2023 10:1 7 AM AUTOMOBILE BUMPER STRAIGHTENER Impressions 04/09/2023 10:38 AM AUTOMOBILE BUMPER STRAIGHTENER No new metastasis or leptomeningeal disease. Several lesions demonstrate interval progression with stability of many other enhancing lesions. ACTIONABLE ITEMS/RECOMMENDATIONS: None. Narrative 04/09/2023 10:38 AM AUTOMOBILE BUMPER STRAIGHTENER FULL RESULT: Examination: MRI BRAIN WITH AND [...] lesions. ACTIONABLE ITEMS/RECOMMENDATIONS: None. Saira Carrasquillo APRN [facility] [place] ORDER[place]LES after 01/04/2023 Advance Directives Documents on File Type Date Recorded Patient Assembler Ping Pong Table Expl anation Advance Directives: Medical Power of Workers Compensation Claims Examiner 06/28/2023 Medical Power of Att orney * Full Code (Latest Code Status on File) Date Activated Date Inactivated Comments 11/04/2023 2:38 AM 11/12/2023 8:08 PM * Full Code Date Activated Date Inactivated Comments 10/01/2023 3:48 PM 10/08/2023 7:09 PM * Full Code Date Activated Date Inactivated Comments 07/31/2023 12:34 AM 08/11/2023 4:16 PM * Full Code Date Activated Date Inactivated Comments 07/24/2023 11:49 PM 07/29/2023 7:11 PM * Full Code Date Activated Date Inactivated Comments 07/03/2023 7:36 PM 07/07/2023 8:52 PM Care Teams Lithographed Plate Inspector Relationship Specialty Start Date End Date Luisana Lucio MD [address] [place] [id number] [email or web address] PCP - External Primary Care Provider Obstetrics/Gynecology 07/17/16 Roseann Jensen MD [address] [place] [address] [phone] [email or web address] PCP - External Referring Otolaryngology 07/19/16 Sindi Casiano MD [address] [place] [phone] [email or web address] PCP - General Thoracic Medicine 11/24/20 Ajith Fink MD [address] [place] [phone] [email or web address] Consulting Physician Nephrology 08/12/21 Annette Kang MD [address] [place] [phone] [email or web address] Consulting Physician Gastroenterology, Hepatology and Nutrition 12/03/20 Frannie Emery MD [address] [place] [phone] [email or web address] Consulting Physician Neurosurgery 05/21/23 Rajinder English APRN [address] [place] [phone] [email or web address] Nurse Practitioner Neurosurgery 05/21/23
[2024-01-04 10:07] LABS: Absolute Lymphocytes (CBC) 0.6 K/uL (0.7-4.9); Absolute Monocytes 0.9 K/uL (0.1-1.3); Absolute Neutrophil 9.7 K/uL (1.8-8.0); Basophils % 0.1 % (0-1.3); Eosinophils % 0.3 % (0-4.4); Hemoglobin 11.4 g/dL (12.0-15.0); Lymphocytes % 5.4 % (15.3-44.8); MCH 29.6 pg (27.0-35.0); MCHC 33.5 g/dL (32.0-36.0); MCV 88.3 fL (80-100); MPV 7.4 fL (7.6-11.3); Monocytes % 7.9 % (3.3-12.3); Neutrophils % 86.3 % (41.7-73.7); Nucleated Red Blood Cells % 0.1 % (0-0); Platelets 299 thou/uL (152-406); RBC Red Blood Cell Count 3.85 M/uL (3.86-4.86); Red Cell Distribution Width 15.1 % (12.1-15.2)
[2024-01-04] MEDS ORDERED: NA CHLORIDE 0.9% 1,000 ML ONE (10:07)
--- NOTE | 2024-01-04 10:14 | RAD REPORT ---
EXAM: CT brain without contrast HISTORY: TRAUMA COMPARISON: 12/13/2023, 12/07/2023, 11/02/2023 TECHNIQUE: Multiple contiguous axial images were obtained and a CT of the brain without contrast. Sag ittal and coronal reformats were performed. One or more of the following dose reduction techniques were used: Automated exposure control, adjust ment of the mA and/or kV according to patient size, and/or iterative reconstruction. FINDINGS: Significant diminished white matter hypointensity particularly involving the right cerebral hemispher e appears stable since prior study. Postsurgical changes with scoliosis seen left temporal region. Minimal right to left midline shift is unchanged. Small right-sided chronic subdural effusion or hygr lester is stable. Left-sided craniotomy is again seen. Mild left mastoid effusion. IMPRESSION: No evidence of acute intracranial abnormality. EXAM: CT of the cervical spine without contrast HISTORY: Neck pain, injury TRAUMA TECHNIQUE: Multiple contiguous axial images were obtained in a CT of the cervical spine without contr ast. Sagittal and coronal reformats were performed. FINDINGS: The vertebral bodies demonstrate normal height and alignment. No evidence of acute fracture or subluxation.. Mild lower cervical degenerative changes. No prevertebral soft tissue swelling is seen. The posterior facets are well aligned. Normal alignment of the skull base with the cervical spine is seen. The lung apices are unremarkable. IMPRESSION: No evidence of acute osseous abnormality of the cervical spine. Significant hypodensity involving the right cerebral hemisphere white matter tracts appears unchanged .
[2024-01-04 10:27] LABS: ALT/SGPT 20 U/L (13-56); AST/SGOT 21 U/L (15-37); Albumin 3.5 g/dL (3.4-5.0); Albumin/Globulin Ratio 0.9 (1.1-1.8); Alkaline Phosphatase 102 U/L (45-117); Anion Gap 7.9 mEq/L (5.0-15.0); BUN Blood Urea Nitrogen 20 mg/dL (7-18); Bicarbonate 27 mEq/L (21-32); Bilirubin Direct < 0.2 mg/dL (0-0.2); Bilirubin Indirect, Calculated 0.1 mg/dL (0.2-0.8); Bilirubin Total 0.3 mg/dL (0.2-1.0); Globulin 3.7 g/dL (2.3-3.5); Glomerular Filtration Rate 53 ml/min (=/>90); Glucose Level 92 mg/dL (74-106); Potassium 4.9 mEq/L (3.5-5.1); Protein, Total 7.2 g/dL (6.4-8.2); Sodium Level 137 mEq/L (136-145); Troponin High Sensitivity 7.1 pg/mL (<58.9)
[2024-01-04 10:49] LABS: Specific Gravity 1.022 (1.005-1.030); Sqamous Epithelial <5 /HPF (None Seen); Urine Bacteria None Seen /HPF (<20); Urine Bilirubin NEGATIVE (Negative); Urine Blood Trace (Negative); Urine Clarity Clear (Clear); Urine Color Light-Yellow (Yellow); Urine Culture Reflex Order NOT NEEDED; Urine Glucose NEGATIVE (Negative); Urine Ketones NEGATIVE (Negative); Urine Micro Reflex YN NO BILL MICROSCOPIC; Urine Mucus Slight /HPF (None Seen); Urine Nitrite NEGATIVE (Negative); Urine Protein NEGATIVE (Negative); Urine RBC <5 /HPF (None Seen); Urine Urobilinogen Normal (Normal); Urine WBC <5 /HPF (<5); Urine pH 5.5 (5.0-7.0)
[2024-01-04 10:56] LABS: Blood Morphology Comment NOT SEEN (NOT SEEN); Platelet Estimate ADEQ; White Blood Cell Scan OK (OK)
--- NOTE | 2024-01-04 11:09 | RAD REPORT ---
EXAMINATION: ONE VIEW CHEST XR CLINICAL INDICATION: CHEST PAIN TECHNIQUE: Frontal chest projection is submitted. Examination is limited by patient positioning and t echnique. COMPARISON: 12/13/2023 FINDINGS: The lungs are well inflated and clear. The heart is normal in size. No displaced fractures identified . IMPRESSION: No acute intrathoracic abnormalities.
--- NOTE | 2024-01-04 11:10 | RAD REPORT ---
EXAMINATION: XR PELVIS CLINICAL INDICATION: TRAUMA TECHNIQUE: AP Pelvis examination was obtained. COMPARISON: 11/28/2023 FINDINGS: No evidence of fracture or dislocation. Normal alignment. No radiographic evidence of AVN seen. Mild osteoarthritis of both hips. IMPRESSION: No acute abnormality seen.
--- NOTE | 2024-01-04 11:28 | ER ---
Nurse's Notes [facility] Name: Zari Posadas Age: 53 yrs Sex: Female : 1970 Arrival Date: 01/04/2024 Time: 09:03 Bed 18 Private MD: Diagnosis: Mechanical fall Presentation: 01/03 09:47 Chief complaint: EMS states: patient had fallen sometime in the night and was on the ap3 floor of her house for an unknown amount of time before the daughter saw her this morning. patient is A/O X's 4 and answers questions appropriately, but does have some memory deficits. family reported to EMS that the patient seems more altered than baseline. Coronavirus screen: At this time, the client does not indicate any symptoms associated with coronavirus-19. Ebola Screen: No symptoms or risks identified at this time. Initial Sepsis Screen: Does the patient meet any 2 criteria? HR > 90 bpm. Does the patient have a suspected source of infection? No. Patient's initial sepsis screen is negative. Risk Assessment: Do you want to hurt yourself or someone else? Patient reports no desire to harm self or others. Onset of symptoms was January 04, 2024. Mechanism of Injury: Fall. Transition of care: patient was not received from another setting of care. 09:47 Method Of Arrival: EMS: [facility] ap3 09:47 Acuity: TYSHAWN 3 ap3 Triage Assessment: 09:51 General: Appears in no apparent distress. Behavior is calm, cooperative, appropriate ap3 for age. Neuro: Level of Consciousness is awake, alert, obeys commands, Oriented to person, place, time, situation. Neuro: family reported to EMS that patient seems more altered than her baseline. Cardiovascular: Patient's skin is warm and dry. Respiratory: Airway is patent Respiratory effort is even, unlabored, Respiratory pattern is regular, symmetrical. 10:03 Pain: Denies pain. 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 - Infectious Disease History:: Denies. - Social history:: Smoking status: unknown. Screenin:53 [facility] ED Fall Risk Assessment (Adult) History of falling in the last 3 months, ap3 including since admission Yes- fall prone (multiple falls) (3 pts) Confusion or Disorientation Yes (5 pts) Intoxicated or Sedated No (0 pts) Impaired Gait Yes (1 pt) Mobility Assist Device Used No (0 pt) Altered Elimination No (0 pt) Score/Fall Risk Level 3 or more points = High Risk Oriented to surroundings, Maintained a safe environment, Educated pt \T\ family on fall prevention, incl call for assistance when getting out of bed, Assessed \T\ reinforced patient's understanding of fall precautions, Provided non-skid footwear, Hourly rounding (assess needs \T\ fall precautionary measures) done, Used ambulatory aids as needed (educated on \T\ assisted with), Used gait belt as appropriate Apply high fall risk patient identification: yellow non skid footwear/ fall signage, Remained w/in arm's length of patient and in sight while toileting, Offered frequent toileting (1:1 observation), Remained with patient while ambulating, Utilized family, sitter, or virtual sole splitter as indicated. Abuse screen: Denies threats or abuse. Nutritional screening: No deficits noted. Tuberculosis screening: No symptoms or risk factors identified. Assessment: 11:06 Reassessment: Patient and/or family updated on plan of care and expected duration. Pain ap3 level reassessed. Patient is alert, oriented x 3, equal unlabored respirations, skin warm/dry/pink. General: Appears in no apparent distress. 12:52 General: Discharge delayed waiting on family to burr picker patient. Patient is unable to me1 sit in lobby alone.. 13:12 General: f/u call to patient's family. They should be here in about 30 minutes. me1 Vital Signs: 09:47 BP 113 / 81; Pulse 95; Resp 16; Temp 97.5(O); Pulse Ox 100% ; Weight 84.37 kg; ap3 10:19 BP 112 / 92; Pulse 85; Pulse Ox 100% ; ap3 11:47 BP 126 / 85; Pulse 90; Resp 17; Pulse Ox 100% ; ap3 12:00 BP 124 / 79; Pulse 89; Resp 17; Pulse Ox 100% ; me1 13:00 BP 126 / 81; Pulse 86; Resp 17; Pulse Ox 100% ; me1 14:00 BP 128 / 76; Pulse 81; Resp 18; Temp 98.4; Pulse Ox 100% ; me1 ED Course: 09:07 Patient arrived in ED. rt 09:07 Des Liriano MD is Attending Physician. rt 09:39 CT Head C Spine In Process Unspecified. EDMS 09:49 Triage completed. ap3 09:51 Patient has correct armband on for positive identification. Bed in low position. Call ap3 light in reach. Side rails up X2. Provided Education on: fall risk and call light education. Client placed on continuous cardiac and pulse oximetry monitoring. NIBP monitoring applied. ekg monitor tech on. Pulse ox on. NIBP on. 09:51 EKG done, by field radio technician. reviewed by Des Liriano MD. ap3 09:53 Arm band placed on right wrist. ap3 10:02 Gail Schaeffer, RN is Primary Nurse. ap3 10:02 Inserted saline lock: 22 gauge in right antecubital area, using aseptic technique. ap3 Blood collected. Flushed with 10 mL NS. 10:42 Straight cath inserted, using sterile technique, 16 Fr. Specimen obtained. ap3 10:43 UAM Sent. ap3 11:05 XRAY Chest (1 view) In Process Unspecified. EDMS 11:05 Pelvis XRAY In Process Unspecified. EDMS 11:47 No provider procedures requiring assistance completed. IV discontinued, intact, ap3 bleeding controlled, No redness/swelling at site. Pressure dressing applied. Administered Medications: 10:17 Drug: NS 0.9% IV 1000 ml IV at 1 bolus Per protocol; to be given as a bolus over 60 ap3 minutes Route: IV; Rate: 1 bolus; Site: right antecubital; 11:48 Follow up: IV Status: Completed infusion; IV Intake: 1000ml ap3 11:47 Not Given (Patient Refused): morphineor iv 2 mg IVP once over 4 mins ap3 Medication: 11:47 VIS not applicable for this client. ap3 Intake: 11:48 IV: 1000ml; Total: 1000ml. ap3 Outcome: 11:27 Discharge ordered by . rt 14:13 Patient left the ED. me1 14:13 Discharged to home via wheelchair, with family, me1 14:13 Condition: stable 14:13 Instructed on discharge instructions, follow up and referral plans. Demonstrated understanding of instructions, follow-up care, Signatures: Dispatcher [employer] Gail Sawyer RN RN ap3 Des Liriano MD MD rt Shirley Beltran RN RN me1 Corrections: (The following items were deleted from the chart) 09:52 09:47 Chief complaint: EMS states: patient had fallen sometime in the night and was on ap3 the floor of her house for an unknown amount of time before the daughter saw her this morning. patient is A/O X's 4 and answers questions appropriately, but does have some memory deficits. ap3
--- NOTE | 2024-01-04 11:28 | EDPHYS ---
Physician Documentation [facility] Name: Zari Posadas Age: 53 yrs Sex: Female : 1970 Arrival Date: 01/04/2024 Time: 09:03 Bed 18 Private MD: ED Physician Des Liriano HPI: 01/03 09:36 This 53 yrs old Female presents to ER via Unassigned with complaints of Fall. rt 09:36 Patient with history of brain cancer presents to the ED with a fall. Patient reportedly rt was found on the ground, does not remember falling. Patient states that she hurts all over but denies any focal specific pain. Denies other acute complaints, symptoms are moderate in severity, no other aggravating or alleviating factors.. 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 - Infectious Disease History:: Denies. - Social history:: Smoking status: unknown. ROS: 09:39 Unable to obtain ROS due to Baseline mental status, rt Exam: 09:39 Head/Face: Normocephalic, atraumatic. Chest/axilla: Normal chest wall appearance and rt motion. Nontender with no deformity. No lesions are appreciated. Cardiovascular: Regular rate and rhythm with a normal S1 and S2. No gallops, murmurs, or rubs. Normal PMI, no JVD. No pulse deficits. Respiratory: Lungs have equal breath sounds bilaterally, clear to auscultation and percussion. No rales, rhonchi or wheezes noted. No increased work of breathing, no retractions or nasal flaring. Abdomen/GI: Soft, non-tender, with normal bowel sounds. No distension or tympany. No guarding or rebound. No evidence of tenderness throughout. Skin: Warm, dry with normal turgor. Normal color with no rashes, no lesions, and no evidence of cellulitis. MS/ Extremity: Pulses equal, no cyanosis. Neurovascular intact. Full, normal range of motion. 09:39 Constitutional: The patient appears Withdrawn, somewhat slow to respond, no acute distress 09:39 ECG was reviewed by the Attending Physician. Vital Signs: 09:47 BP 113 / 81; Pulse 95; Resp 16; Temp 97.5(O); Pulse Ox 100% ; Weight 84.37 kg; ap3 10:19 BP 112 / 92; Pulse 85; Pulse Ox 100% ; ap3 11:47 BP 126 / 85; Pulse 90; Resp 17; Pulse Ox 100% ; ap3 12:00 BP 124 / 79; Pulse 89; Resp 17; Pulse Ox 100% ; me1 13:00 BP 126 / 81; Pulse 86; Resp 17; Pulse Ox 100% ; me1 14:00 BP 128 / 76; Pulse 81; Resp 18; Temp 98.4; Pulse Ox 100% ; me1 MDM: 09:07 Medical Screening Exam initiated rt 11:51 Differential Diagnosis Fall, pelvic fracture, intracranial hemorrhage. Data reviewed: rt vital signs, nurses notes, lab test result(s), EKG, radiologic studies. Consideration of Admission/Observation Escalation of care including admission/observation considered. Patient has an unremarkable workup, unchanged CT scan. Symptoms are improving in the ED without any pain medicines. Patient is a hospice patient, do not believe that she will benefit from admission to the hospital at this time. Patient stable for outpatient care.. Independent interpretation of the following test(s) in the Emergency Department CT Scan: My interpretation is No intracranial hemorrhage seen on interpretation of CT scan images. Care significantly affected by the following chronic conditions: Brain cancer. Response to treatment: the patient's symptoms have markedly improved after treatment. 01/03 09:08 Order name: Basic Metabolic Panel; Complete Time: 10:58 rt 01/03 09:08 Order name: CBC with Diff; Complete Time: 10:58 rt 01/03 09:08 Order name: LFT's; Complete Time: 10:58 rt 01/03 09:08 Order name: Troponin HS; Complete Time: 10:58 rt 01/03 09:08 Order name: UAM; Complete Time: 10:58 rt 01/03 10:11 Order name: CBC Smear Scan; Complete Time: 10:58 EDMS 01/03 09:08 Order name: XRAY Chest (1 view); Complete Time: 11:12 rt 01/03 09:08 Order name: CT Head C Spine; Complete Time: 10:58 rt 01/03 09:08 Order name: Pelvis XRAY; Complete Time: 11:12 rt 01/03 09:08 Order name: Cardiac monitoring; Complete Time: :53 rt 01/03 09:08 Order name: EKG - Nurse/Tech; Complete Time: 09:30 rt 01/03 09:08 Order name: IV Saline Lock; Complete Time: 10:03 rt 01/03 09:08 Order name: Labs collected and sent; Complete Time: 10:03 rt 01/03 09:08 Order name: O2 Per Protocol; Complete Time: :53 rt 01/03 09:08 Order name: O2 Sat Monitoring; Complete Time: :53 rt EC:39 Rate is 93 beats/min. Rhythm is regular, Normal Sinus Rhythm with No ectopy. QRS [place] rt is Normal. NC interval is normal. QRS interval is normal. QT interval is normal. No Q waves. T waves are Normal. No ST changes noted. Interpreted by me. Administered Medications: 10:17 Drug: NS 0.9% IV 1000 ml IV at 1 bolus Per protocol; to be given as a bolus over 60 ap3 minutes Route: IV; Rate: 1 bolus; Site: right antecubital; 11:48 Follow up: IV Status: Completed infusion; IV Intake: 1000ml ap3 11:47 Not Given (Patient Refused): morphineor iv 2 mg IVP once over 4 mins ap3 Disposition Summary: 01/04/24 11:27 Discharge Ordered Notes: Location: Home rt Problem: new rt Symptoms: have improved rt Condition: Stable rt Diagnosis - Mechanical fall rt Followup: rt - With: Private Physician - When: 2 - 3 days - Reason: Discharge Instructions: - Discharge Summary Sheet rt - Fall Prevention in the Home, Adult rt Forms: - Medication Reconciliation Form rt - Antibiotic Education rt - Prescription Opioid Use rt - Patient Portal Instructions rt - Leadership Thank You Letter rt Signatures: Dispatcher [employer] EDGail Baugh RN RN ap3 Des Liriano MD MD rt Corrections: (The following items were deleted from the chart) 09: 09:09 Head C Spine MPR Wo Con+CT.RAD.BRZ ordered. EDMS EDMS 09:09 09:09 Pelvis+RAD.RAD.BRZ ordered. EDMS EDMS
[2024-01-04 14:44] VITALS: O2SAT 100
[2024-01-04 15:12] VITALS: BP 128/76; TEMP 98.4
--- NOTE | 2024-01-08 13:06 | EKG ---
Test Date: 2024-01-04 Test Time: 09:24:24 Pharmacovigilance Safety Expert: MARION MEASUREMENT RESULTS: Intervals: Rate: 93 IA: QRSD: 80 QT: 364 QTc: 452 [place]: P: 15 IA: QRS: 8 T: 60 INTERPRETIVE STATEMENTS: Normal sinus rhythm Abnormal ECG Compared to ECG 12/13/2023 08:07:56 Sinus rhythm no longer present Electronically Signed On 01-08-24 12:54:33 CDT by Goran Kaur
== END 2024-01-04 14:13 | disposition home or self-care (01) ==
LOC: ER 09:03
DX: Z04.3 Encounter for examination and observation following other accident (principal); W18.30XA Fall on same level, unspecified, initial encounter; C71.9 Malignant neoplasm of brain, unspecified
CPT/HCPCS: 96361; 93005; 85025; 81001; 80048; 36415; 80076; 84484; 70450; 72125; 71045; 72170; 51702; 96360; 99285; J7030

== ENCOUNTER 2024-01-05 13:08 | Emergency (ER) | payer OTHER ==
--- OUTSIDE RECORDS SUMMARY | 2024-01-05 13:15 | XMS REPORT | Clinical Summary ---
Author Name Unknown Organization [facility] Address [address] [place] [address] Care Team Providers Care Samples And Repairs Preparer Name Role Phone Luisana Lucio MD Unavailable [phone] Roseann Jensen MD Unavailable [phone] Sindi Casiano MD Primary Care Provider [phone] Ajith Fink MD Unavailable Annette Kang MD Unavailable [phone] Frannie Emery MD Unavailable [phone] Rajinder English APRN Unavailable Allergies Active Allergy [...] Overview: Added automatically from request for surgery [id number] Lymphocytic colitis 10/20/2021 Acute renal failure syndrome [...] Overview: Added automatically from request for surgery [id number] Chronic diarrhea 12/03/2020 Overview: Added automatically from request for surgery [id number] Lesion of brain 02/03/2020 Overview: Added automatically from request for surgery [id number] Hypokalemia 01/31/2020 Disorder of fluid AND/OR electrolyte 01/31/2020 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 disease 0 Cerebral edema 01/30/2020 Secondary malignant neoplasm of brain 01/30/2020 Aphasia 01/30/2020 Depressive disorder 01/30/2018 Non-small cell carcinoma of lung, TNM stage 4 Dysphagia 07/31/2016 Choking 07/31/2016 Thyroid cancer 07/31/2016 Overview: Mandatory [facility] ICD-10 2020 UPDATE Other psychological or physi pito stress, not elsewhere classified Malignant neoplasm related fatigue Abnormal gait due to muscle weakness Rhabdomyolysis Encounters Date Type Department Care Team Description 11/12/2023 Orders Only [facility] - Neurosurgery [address] [place] [address] Main [facility], 7th [place] [address] Avbovvolodymyr, Leanderuoandrae, FURNACE INSTALLER HELPER Secondary malignant neoplasm of brain (Primary Dx) 11/07/2023 Orders Only [facility] - Neuro Oncology [address] [place] [address] Main dg, 7th [place] [address] Saloni Man, FURNACE INSTALLER HELPER,COMMUNICATIONS DESIGNER Secondary malignant neoplasm of unspecified lung (Primary Dx); Other seizure; Altered mental status; 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 11/06/2023 12:06 PM CDT Anesthesia Event [facility] [address] [place] [address] Main dg, 3rd [place] [address] Nedra Oscar MD 11/04/2023 Travel 11/03/2023 11:34 PM CDT - 11/12/2023 6:03 PM CDT Hospital Encounter MAIN 12NW [address] [place] [address] Abhijit Farr MD Gao, Lucy C, MD [...] Travel 10/30/2023 Orders Only Radiation Treatment Center [facility] Main [facility], 1st [place] [address] Sammi Byrne, SUSANA Secondary malignant neoplasm of brain (Primary Dx) 10/25/2023 4:30 PM CDT POEM Appointments Per[facility] [address] [place] [address] Main [facility], 6th [place] [address] Sindi Casiano MD 10/24/2023 11:59 PM CDT Anesthesia Event Per[facility] [address] [place] [address] Main [facility], 6th [place] [address] Francoise Michael RN 10/16/2023 Telephone Gastrointestinal Center [address] [facility] Main [facility], 7th [place] [address] Elizabeth Morelos MA 10/08/2023 Orders Only [facility] - Neurosurgery [address] [place] [address] Main [facility], 7th [place] [address] Van Russo, FURNACE INSTALLER HELPER Secondary malignant neoplasm of brain (Primary Dx) 10/06/2023 Orders Only [facility] - Neuro Oncology [address] [place] [address] Main Bldg, 7th [place] [address] Carmita Castorena MD 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 (Primary Dx) 10/05/2023 12:45 PM CDT Anesthesia Event [facility] [address] [place] [address] Main Bldg, 3rd [place] [address] Aramis Nicholas MD Shaik, Ghouse B, FURNACE INSTALLER HELPER 10/02/2023 Travel 10/01/2023 11:17 AM CDT - 10/08/2023 5:04 PM CDT Hospital Encounter MAIN [address]NE [address] [place] [address] Zuri Farr MD Taylor, MD Maikel Bean Norman, MD Parhizgar, Alireza, MD Aphasia (Primary Dx); Other encephalopathy; Adenocarcinoma, NOS of lower lobe, 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>; Urinary tract infection, not otherwise specified; Other low back pain; Malignant neoplasm of unspecified part of unspecified bronchus or lung Discharge Disposition: Home with Home-Health or Physical Therapy 10/01/2023 Travel 09/10/2023 Orders Only Abdominal Imaging [address] [place], [place] [id number] Padmini Morelos, FURNACE INSTALLER HELPER 09/10/2023 Orders Only Radiation Treatment Center [address] [place] [address] Main Bldg, 1st [place] [address] Vicky Denise, FURNACE INSTALLER HELPER Secondary malignant neoplasm of brain (Primary Dx) 09/10/2023 Documentation Rad[facility] Treatment [facility] [address] [place] [address] Main Bldg, 1st [place] [address] Vicky Denise, FURNACE INSTALLER HELPER 09/05/2023 Orders Only Thoracic Center - Medical Oncology [address] [place] [address] Main dg, 9th Floor Elevator [address] [place] [id number] Dalia Weiner APRN Non-small cell carcinoma of lung, TNM stage 4 <Unspecified side> (Primary Dx) 09/04/2023 11:00 AM CDT Telemedicine [facility] - Neurosurgery [address] [place] [address] Main [facility], 7th [place] [address] Frannie Emery MD Secondary malignant neoplasm of brain (Primary Dx) 09/03/2023 11:59 PM CDT Anesthesia Event [facility] [address] [place] [address] Main [facility], 3rd Floor Elevator F [place] [id number] Lima Zavala MD 08/31/2023 4:49 PM CDT Anesthesia Event [facility] [address] [place] [address], 6th [place] [address] Francoise Michael RN 08/31/2023 4:30 PM CDT POEM Appointments [facility] [address] [place] [address], 6th Floor Elevator [address] [place] [id number] Sindi Casiano MD 08/29/2023 [facility] - Medical Oncology [address] [place] [address], 9th [place] [address] Lorenza Taylor, RN 08/24/2023 Case Management Case Management [address] [place] [address] Ashlyn Hernandez RN 08/23/2023 [facility] - Medical Oncology [address] [place] [address], 9th [place] [address] Dalia Weiner, FURNACE INSTALLER HELPER Non-small cell carcinoma of lung, TNM stage 4 <Unspecified side> (Primary Dx) 08/23/2023 Case Management Case Management [address] [place], [place] [id number] Ashlyn Hernandez, RN 08/08/2023 10:12 AM CDT Anesthesia Event [facility] [address] [place] [address] Main [facility], 3rd [place] [address] Nedra Oscar MD Thomas, Cini, FURNACE INSTALLER HELPER,COMMUNICATIONS DESIGNER 07/31/2023 Travel 07/30/2023 8:38 PM CDT - 08/11/2023 2:13 PM CDT Hospital Encounter MAIN 11SE [address] [place] [address] Shadia Clement MD Gao, Lucy C, MD [...] Gastrointestinal Center - Gastroenterology, Hepatology & Nutrition [address] [place] [address] Main dg, 7th [place] [address] Mounika Caballero, FURNACE INSTALLER HELPER 07/30/2023 Case Management Case Management [address] [place] [address] Johnie Velasco RN 07/27/2023 Orders Only Clinical Pharmacy [address] [place] [address] Main dg, 2nd [place] [address] Jonathan Mohr Carri 07/26/2023 9:54 AM CDT Anesthesia Event [facility] [address] [place] [address] Main dg, 3rd [place] [address] Elisa Reyes CRNA 07/26/2023 Orders Only [facility] - Neuro Oncology [address] [facility], 7th [place] [address] Suzi Dias DO Seizure, not otherwise specified (Primary Dx) 07/25/2023 Travel 07/24/2023 8:53 PM CDT - 07/29/2023 5:11 PM CDT Hospital Encounter MAIN 17SE [address] [place] [address] Shadia Clement MD Gao, Lucy C, MD [...] Travel 07/24/2023 Case Management Case Management [address] [place] [address] Johnie Velasco RN 07/23/2023 10:45 AM CDT Ancillary Procedure CT Imaging 1220 [facility], 7th [place] [address] Dalia Weiner APRN Non-small cell carcinoma of lung, TNM stage 4 <Unspecified side> 07/23/2023 9:15 AM CDT - 07/23/2023 11:59 PM CDT Hospital Encounter Diagnostic [facility] Center [address] [place] [address] Dalia Weiner APRN Non-small cell carcinoma of lung, TNM stage 4 <Unspecified side> Discharge Disposition: Home 07/20/2023 Orders Only [facility] - Gastroenterology, Hepatology & Nutrition [address] [place] [address], 7th [place] [address] Mounika Caballero APRN Diarrhea (Primary Dx); Lymphocytic colitis 07/20/2023 Travel 07/19/2023 8:00 AM CDT Telemedicine [facility] - Gastroenterology, Hepatology & Nutrition [address] [place] [address], 7th [place] [address] Mounika Caballero APRN Lymphocytic colitis (Primary Dx); Diarrhea 07/19/2023 Prep for Surgery [facility] - Gastroenterology, Hepatology & Nutrition [address] [place] [address], 7th [place] [address] Mounika Caballero APRN Lymphocytic colitis (Primary Dx); Diarrhea; Malignant neoplasm of unspecified part of unspecified bronchus or lung 07/18/2023 Case Management Case Management [address] [place] [address] Johnie Velasco, RN 07/17/2023 Telephone Colorectal Center - Colon and Rectal Surgery [address] [place] [address], 7th [place] [address] Chika Pastrana MA 07/17/2023 Orders Only Thoracic Center - Medical Oncology [address] [place] [address], 9th [place] [address] Dalia Weiner APRN Non-small cell carcinoma of lung, TNM stage 4 <Unspecified side> (Primary Dx) 07/16/2023 Case Management Case Management [address] [place] [address] Johnie Velasco, RN 07/12/2023 Telephone Case Management [address] [place] [address] Johnie Velasco, RASHMI 07/12/2023 Telephone Case Management [address] [place] [address] Johnie Velasco, RN 07/11/2023 Orders Only [facility] - Gastroenterology, Hepatology & Nutrition [address] [place] [address], 7th [place] [address] Mounika Caballero APRN Lymphocytic colitis (Primary Dx) 07/09/2023 Case Management Case Management [address] [place] [address] Johnie Velasco, RASHMI 07/05/2023 Orders Only Neuroradiology [address] [place] [address] Gilles Beatty MD 07/03/2023 3:02 PM CDT - 07/07/2023 6:40 PM CDT Hospital Encounter MAIN [address] [place] [address] Abhijit Farr MD Musunuru, Tejo, MD Franco [...] 07/03/2023 Telephone Thoracic Center - Medical Oncology [address] [place] [address], 9th [place] [address] Ildefonso Donaldson MA 07/03/2023 Telephone [facility] - Neurosurgery [address] [facility] Main Bldg, 7th [place] [address] Yumiko Briones RN 06/30/2023 Orders Only [facility] - Neuro Oncology [facility]5 [facility] Main Bldg, 7th [place] [address] Shae Cosme MD Secondary malignant neoplasm of brain (Primary Dx) 06/29/2023 2:08 PM CDT Anesthesia Event [facility] [address] [place] [address] Main Bldg, 3rd [place] [address] Asim Ontiveros DO Thomas, Nina, APRN 06/27/2023 5:31 PM CDT - 07/01/2023 6:33 PM CDT Hospital Encounter MAIN [address]SE [address] [place] [address] Kalpana William MD Wechsler, Adriana, MD Yeung, Sai-Ching, MD Musunuru, Tejo, MD Etchegaray-Langly, Mikel, MD Auditory hallucination (Primary Dx); Secondary malignant neoplasm of brain; Non-small cell carcinoma of lung, TNM stage 4; Poor balance; Depressive disorder; Chronic diarrhea; Subdural hematoma <Subsequent>; Iron deficiency anemia, not otherwise specified Discharge Disposition: Home 06/27/2023 Travel 06/22/2023 Orders Only Thoracic Center - Medical Oncology [address] [place] [address] Main dg, 9th Floor Ele[address]ator [address] [place] [phone] Dalia Weiner APRN Non-small cell carcinoma of lung, TNM stage 4 <Unspecified side> (Primary Dx); Hyperlipidemia, not otherwise specified; Hypokalemia 06/18/2023 Orders Only [facility] - Medical Oncology [address] [place] [address] Main dg, 9th [place] [address] Dalia Weiner, FURNACE INSTALLER HELPER Malignant neoplasm of unspecified part of unspecified bronchus or lung (Primary Dx) 06/12/2023 Telephone [facility]acic Center - Medical Oncology [address] [place] [address] Main Bldg, 9th [place] [address] Alex Bo MA 06/08/2023 12:30 PM CDT Telemedicine [facility] - Neurosurgery [facility] Main Bldg, 7th [place] [address] Mark Batista MD Ferguson, Sherise D., MD Secondary malignant neoplasm of brain 06/05/2023 Orders Only Neuroradiology [address] [place] [address] Joslyn Sy MD 06/05/2023 Orders Only Radiation Treatment Center [address] [place] [address] Main dg, 1st [place] [address] Saira Carrasquillo APRN Secondary malignant neoplasm of brain (Primary Dx) 06/04/2023 1:44 PM CDT - 06/04/2023 11:59 PM CDT Hospital Encounter Radiation Treatment Center [address] [place] [address] Main dg, 1st [place] [address] Bree Calderón MD Secondary malignant neoplasm of brain (Primary Dx) Discharge Disposition: Home 06/04/2023 11:26 AM CDT Anesthesia Event [facility] [address] [place] [address] Main Bldg, 3rd [place] [address] Darius Zelaya MD Kwok, Cindy, CRNA 06/04/2023 10:15 AM CDT - 06/04/2023 1:43 PM CDT Hospital Encounter [facility] [address] [place] [address] Main Bldg, 3rd [place] [address] Saira Carrasquillo APRN Potylchansky, Yury, MD Kwok, Cindy, CRNA Secondary malignant neoplasm of brain Discharge Disposition: Home 06/04/2023 Travel 06/01/2023 11:59 PM CDT Anesthesia Event Per[facility] Management [facility] [address] [place] [address] Main dg, 6th [place] [address] Rahel Smallwood APRN 06/01/2023 4:30 PM CDT POEM Appointments [facility] Management [facility] [address] [facility] Main Bldg, 6th [place] [address] Sindi Casiano MD 05/17/2023 Orders Only Thoracic Center - Medical Oncology [address] Main Bldg, 9th [place] [address] Dalia Weiner APRN Malignant neoplasm of unspecified part of unspecified bronchus or lung (Primary Dx) 05/17/2023 Orders Only [facility] - Medical Oncology [address] Main Bldg, 9th [place] [address] Dalia Weiner APRN Malignant neoplasm of unspecified part of unspecified bronchus or lung; Diarrhea 05/16/2023 Refill [facility] - Medical Oncology [address] Main Bldg, 9th [place] [address] Dalia Weiner APRN Malignant neoplasm of unspecified part of unspecified bronchus or lung; Diarrhea 05/03/2023 Documentation [facility] Treatment [facility] [address] [facility] Main [place] [address] Bree Calderón MD 05/02/2023 Orders Only [facility] Center - Medical Oncology [address] Main Bldg, 9th [place] [address] Dalia Weiner, SUSANA Non-small cell carcinoma of lung, TNM stage 4 <Unspecified side> (Primary Dx) 04/18/2023 2:40 PM COFFIN MAKER - 04/18/2023 11:59 PM COFFIN MAKER Hospital Encounter Diagnostic Laboratory Center [address] [facility] Main Bldg, [place] [address] Sindi Casiano MD Malignant neoplasm of unspecified part of unspecified bronchus or lung Discharge Disposition: Home 04/18/2023 1:00 PM COFFIN MAKER Follow-Up Thoracic Center - Medical Oncology [facility] Main Bldg, 9th [place] [address] Sindi Casiano MD Malignant neoplasm of unspecified part of unspecified bronchus or lung (Primary Dx); Non-small cell carcinoma of lung, TNM stage 4 <Unspecified side> 04/18/2023 Documentation Rehabilitation Services [facility], 1st Floor G1.3418 [place] [address] MilnorZohreh Barkley, PT 04/18/2023 Orders Only Thoracic Center - Medical Oncology [address] [facility], 9th [place] [address] Rosa Almendarez, Greer Malignant neoplasm of unspecified part of unspecified bronchus or lung (Primary Dx) 04/18/2023 Travel 04/16/2023 2:05 PM COFFIN MAKER Ancillary Procedure CT Imaging 12[address] [facility], 7th [place] [address] Dalia Weiner, FURNACE INSTALLER HELPER Non-small cell carcinoma of lung, TNM stage 4 <Unspecified side> 04/12/2023 9:30 AM COFFIN MAKER - 04/12/2023 11:59 PM COFFIN MAKER Hospital Encounter Radiation Treatment Center [address] [place] [address], 1st [place] [address] Saira Carrasquillo, SUSANA Secondary malignant neoplasm of brain Discharge Disposition: Home 04/12/2023 Orders Only [facility] - Neurosurgery [facility], 7th [place] [address] Rajinder English, FURNACE INSTALLER HELPER Lesion of brain (Primary Dx) 04/11/2023 8:13 AM COFFIN MAKER Anesthesia Event Rad[facility] Treatment Center [address] [place] [address] Radiation Oncology Center Take Elevator G to the [place] [address] Kenton Reich MD 04/11/2023 7:10 AM COFFIN MAKER - 04/11/2023 11:40 AM COFFIN MAKER Surgery [facility] [address] [place] [address] Radiation Oncology [facility] Take Elevator G to the Basement [place] [address] Bree Calderón MD 4 STAR - STEREOTACTIC RADIATION [place] MANAGEMENT,CRANIAL LESION 04/11/2023 7:03 AM COFFIN MAKER - 04/11/2023 5:39 PM COFFIN MAKER Hospital Encounter Radiation Treatment Center 1515 [facility] Radiation Oncology Center Take Elevator G to the [place]ement [place] [address] Mark Batista MD Discharge Disposition: Home 04/11/2023 Documentation Radiation Treatment Center 15[address] [facility] Main [place] [address] Bree Calderón MD 04/11/2023 Documentation Radiation Treatment Center [address] [facility] Main [place]ld[place] [address] Bree Calderón MD 04/11/2023 Documentation Radiation Treatment Center [address] [facility] Main [place]ld[place] [address] Bree Calderón MD 04/11/2023 Travel 04/10/2023 11:00 AM COFFIN MAKER - 04/10/2023 11:59 PM COFFIN MAKER Hospital Encounter Radiation Treatment Center 15[address] [facility] Main Bldg, 1st [place] [address] Saira Carrasquillo APRN Foster, Avian P, RN Secondary malignant neoplasm of brain Discharge Disposition: Home 04/10/2023 Prep for Surgery [facility] - [facility] [address] [facility] Main Bldg, 7th [place] [address] Rajinder English APRN 04/10/2023 Documentation [facility] - Neurosurgery [address] Main Bldg, 7th [place] [address] Marcella Hopper, FURNACE INSTALLER HELPER 04/10/2023 Prep for Surgery [facility] - Neurosurgery [address] Main Bldg, 7th [place] [address] Marcella Hopper, FURNACE INSTALLER HELPER Secondary malignant neoplasm of brain (Primary Dx) 04/09/2023 10:37 AM COFFIN MAKER - 04/09/2023 11:59 PM COFFIN MAKER Hospital Encounter Diagnostic Laboratory Center [address] Main Bldg, [place] [address] Saira Carrasquillo APRN Secondary malignant neoplasm of brain Discharge Disposition: Home 04/09/2023 7:28 AM COFFIN MAKER Anesthesia Event [facility] [address] Main Bldg, 3rd [place] [address] Darius Zelaya MD 04/09/2023 6:08 AM COFFIN MAKER - 04/09/2023 10:36 AM COFFIN MAKER Hospital Encounter Diagnostic [facility] Center [address] Main Bldg, 3rd [place] [address] Saira Carrasquillo APRN Mirza, Alisa, CRNA Potylchansky, Yury, MD Secondary malignant neoplasm of brain Discharge Disposition: Home 04/06/2023 11:59 PM COFFIN MAKER Anesthesia Event [facility] Main Bldg, 6th [place] [address] Yamilet Gibson RN 04/06/2023 11:30 AM COFFIN MAKER POEM Appointments [facility] Main Bldg, 6th [place] [address] Sindi Casiano MD 03/26/2023 Orders Only Thoracic Center - Medical Oncology [address] Main Bldg, 9th [place] [address] Dalia Weiner APRN Hypokalemia (Primary Dx) 03/02/2023 Documentation Radiation Treatment Center 15[address] [facility] Main Bldg, 1st [place] [address] Curtis Welsh APRN 02/27/2023 Orders Only Neuroradiology [address] [place] [address] Tere Hawkins MD 02/27/2023 Orders Only Radiation Treatment [facility] Main Bldg, 1st [place] [address] Saira Carrasquillo APRN Secondary malignant neoplasm of brain (Primary Dx) 02/26/2023 2:49 PM COFFIN MAKER - 02/26/2023 11:59 PM COFFIN MAKER Hospital Encounter Radiation Treatment Center 15[address] [facility] Main Bldg, 1st [place] [address] Bree Calderón MD Secondary malignant neoplasm of brain Discharge Disposition: Home 02/26/2023 Travel 02/14/2023 9:23 AM COFFIN MAKER Anesthesia Event Diagnostic Imaging Center [facility] Main Bldg, 3rd [place] [address] Bambi Hernandez MD 02/14/2023 8:00 AM COFFIN MAKER - 02/14/2023 11:59 PM COFFIN MAKER Hospital Encounter Diagnostic Imaging Center [address] [facility] Main Bldg, 3rd [place] [address] Jailene Crespo CRNA Oliver, Jodi Ann, MD Secondary malignant neoplasm of brain Discharge Disposition: Home 02/07/2023 11:59 PM COFFIN MAKER Anesthesia Event Perioperative Evaluation and Management Center [facility] Main Bldg, 6th [place] [address] Miguel Angel Riggins RN 02/07/2023 12:00 PM COFFIN MAKER POEM Appointments Perioperative Evaluation and Management Center [address] [place] [address] Main Bldg, 6th [place] [address] Sindi Casiano MD 01/29/2023 [facility] Only Thoracic Center - Medical Oncology [facility] Main dg, 9th Floor Elevator [address] [place] [id number] Dalia Weiner APRN Non-small cell carcinoma of lung, TNM stage 4 <Unspecified side> (Primary Dx) 01/17/2023 7:50 AM CDT - 01/17/2023 11:59 PM CDT Hospital Encounter Main CT IMAGING [facility] Main Bldg, 3rd [place] [address] Dalia Weiner APRN Non-small cell carcinoma of lung, TNM stage 4 <Unspecified side> Discharge Disposition: Home 01/17/2023 7:24 AM CDT - 01/17/2023 7:49 AM CDT Hospital Encounter Diagnostic Laboratory Center [facility] Main dg, [place] [address] Dalia Weiner APRN Non-small cell carcinoma of lung, TNM stage 4 <Unspecified side> Discharge Disposition: Home 01/17/2023 Orders Only Thoracic Center - Medical Oncology [address] [place] [address] Main dg, 9th [place] [address] Rosa Almendarez, PharmD 01/09/2023 Orders Only Neuroradiology [address] [place] [address] Sharlene Wayne MD 01/09/2023 Orders Only Radiation Treatment Center [address] [place] [address] Main dg, 1st Floor near [place] [address] Vicky Denise APRN Secondary malignant neoplasm of brain (Primary Dx) 01/08/2023 4:00 PM CDT - 01/08/2023 11:59 PM CDT [facility] [address] [place] [address] Main dg, 1st [place] [address] Bree Calderón MD Secondary malignant neoplasm of brain Discharge Disposition: Home 01/05/2023 9:44 AM CDT Anest[facility] [address] [place] [address] Main dg, 3rd [place] [address] Moni Malloy MD Kwok, Cindy, CRNA 01/05/2023 8:00 AM CDT - 01/05/2023 11:59 PM CDT [facility] [address] [place] [address] Main dg, 3rd [place] [address] Lois Willingham MD Nguyen, Anh-Thuy, MD Casarez, Vianey, CRNA Secondary malignant neoplasm of brain Discharge Disposition: Home after 01/05/2023 Immunizations Name Administration Dates Next Due Pfizer SARS-CoV-2 Vaccination (Purple Cap) 11/06 Surgical History Surgery Date Site/Laterality Comments THYROID SURGERY 07/14/2016 was planned for partial thyroidectomy which was aborted d/t positive LN UTERINE FIBROID EMBOLIZATION GALLBLADDER SURGERY LAPAROSCOPIC GASTRIC BANDING TUBAL LIGATION AL EGD TRANSORAL BIOPSY SINGLE/MULTIPLE 05/31/2019 Esophagus/N/A Procedure: UPPER GASTROINTESTINAL ENDOSCOPY OF ESOPHAGUS, STOMACH, AND DUODENUM WITH BIOPSY; Surgeon: Haile Whittaker MD; Location: MAIN ENDOSCOPY; Service: GASTROENTEROLOGY AL CRANIEC TREPHINE BONE FLP BRAIN TUMOR SUPRTENTOR 02/10/2020 Head/Left Procedure: LEFT TEMPORAL CRANIOTOMY FOR EXCISION OF BRAIN TUMOR; Surgeon: Frannie Emery MD; Location: MAIN OR; Service: NEUROSURGERY Medical devices from this surgery are in the Medical Devices section. AL COLONOSCOPY FLX DX W/COLLJ SPEC WHEN PFRMD 09/28/2021 N/A Procedure: DIAGNOSTIC FLEXIBLE COLONOSCOPY PROXIMAL TO SPLENIC FLEXURE; Surgeon: Annette Kang MD; Location: MAIN ENDOSCOPY; Service: GASTROENTEROLOGY; The EGD and colonoscopy showed minimal inflammation in the stomach/duodenum, but lymphocytic colitis on biopsy, which could certainly explain her symptoms of diarrhea. AL TCAT PERMANENT OCCLUSION/EMBOLIZATION PRQ SHIFT MECHANIC 06/09/2022 Bilateral Procedure: IR EMBOLIZATION SHIFT MECHANIC (INTRACRANIAL); Surgeon: Haim Mckeon MD; Location: MAIN OR; Service: INTERVENTIONAL RADIOLOGY AL STERET[facility] RADIATION [place] MANAGEMENT CRANIAL LESION 04/11/2023 [...] 6:30 PM CDT Sexual Orientation Straight 11/05/2019 2 :34 PM CDT Job Start Date Occupation Industry [...] this topic Medical Devices Implanted Type Area Brim Stitcher Device Identifier Shelf Expiration Date Model / Serial / Lot Lap Band Implant Stomach [employer] [id number] / [id number] / Description:Lap band--[facility]--2010--Dr. Edward Reed--[phone] Allergan Lap-Band--Conditional 5 up to 3T per Impakt Protective.Brandpotion Hc Cover, Matrix Neuro Ulp Florian Hole, Ti, 17mm - [id number] Implanted:Qty: 2 on 02/10/2020 by Frannie Emery MD at [facility] Implant Left: Cranial Uplike [place] 04502.0 23 / / Plate, Matix, Neuro, Ulp Ti, Box, 34sdo13az - [id number] Implanted:Qty: 1 on 02/10/2020 by Frannie Emery MD at [facility] Implant Left: Cranial SYNTHES Carritus 04502.0 65 / / Screw Matrixneuro 4mm Self Drilling Pkg 1 - [id number] Implanted:Qty: 13 on 02/10/2020 by Frannie Emery MD at [facility] Metalware Left: Cranial SYNTHES [place] 04503.1 04.01 / / Florian Hole Crani 17mm Low Profile - [id number] Implanted:Qty: 1 on 02/10/2020 by Frannie Emery MD at [facility] Metalware Left: Cranial SYNTHES Carritus 503.0 23 / / Sealant Duraseal 5ml - [id number] Implanted:Qty: 1 on 02/10/2020 by Frannie Emery MD at [facility] Skin/Tissue Left: Cranial COVIDIEN 12/16/2020- / / [id number] Procedures Procedure Name Priority Date/Time Associated Diagnosis [...] MRI BRAIN W WO CONTRAST STAT 06/29/19 24 3:10 PM CDT .CBC Routine 06/29/2023 2:24 [...] brain LIPID PANEL Routine 04/18/2023 2:50 PM COFFIN MAKER Malignant neoplasm of unspecified part of unspecified bronchus or lung MAGNESIUM LEVEL Routine 04/18/2023 2:50 PM COFFIN MAKER Malignant neoplasm of unspecified part of unspecified bronchus or lung CREATINE KINASE Routine 04/18/2023 2:50 PM COFFIN MAKER Malignant neoplasm of unspecified part of unspecified bronchus or lung COMPREHENSIVE METABOLIC PANEL Routine 04/18/2023 2:50 PM COFFIN MAKER Malignant neoplasm of unspecified part of unspecified bronchus or lung CT CHEST ABDOMEN PELVIS W CONTRAST Routine 04/16/2023 5:20 PM COFFIN MAKER Non-small cell carcinoma of lung, TNM stage 4 <Unspecified side> POC CREATININE Routine 04/16/2023 4:39 PM COFFIN MAKER AL [facility] RADIATION [place] MANAGEMENT CRANIAL LESION 04/11/2023 8:03 AM COFFIN MAKER Secondary malignant neoplasm of brain .CBC Routine 04/09/2023 10:59 AM COFFIN MAKER Secondary malignant neoplasm of brain COMPLETE BLOOD COUNT W/ DIFFERENTIAL Routine 04/09/2023 10:59 AM COFFIN MAKER Secondary malignant neoplasm of brain MRI BRAIN WITH AND WITHOUT CONTRAST - FRAMELESS GAMMA KNIFE Routine 04/09/2023 8:55 AM COFFIN MAKER Secondary malignant neoplasm of brain MRI BRAIN W WO CONTRAST - ABTI Routine 02/14/2023 11:23 AM COFFIN MAKER Secondary malignant neoplasm of brain POC CREATININE Routine 02/14/2023 9:[address] CHEST ABDOMEN PELVIS W CONTRAST Routine [...] CDT Secondary malignant neoplasm of brain after 01/05/2023 Results * (ABNORMAL) .CBC (11/12/2023 5:10 AM CDT) Only the most recent of49 resultswithin the time period is included. Pathologist [facility] White Blood Cell 7.0 4.1 - 10.5 K/uL 11/12/2023 5:45 AM CDT [facility] Red Blood Cell 3.51(L) 3.99 - 5.46 M/uL 11/12/2023 5:45 AM CDT [facility] Hemoglobin 10.6(L) 12.2 - 15.3 g/dL 11/12/2023 5:45 AM CDT [facility] Hematocrit 32.7(L) 36.4 - 46.8 % 11/12/2023 5:45 AM T [facility] Mean Cell Volume 93 82 - 99 fL 11/12/2023 5:45 AM CDT [facility] Mean Cell Hemoglobin 30.2 26.6 - 33.2 pg 11/12/2023 5:45 AM CDT [facility] Mean Cell Hemoglobin Concentration 32.4 31.1 - 35.2 g/dL 11/12/2023 5:45 AM T [facility] RDW-SD 47.0 37.5 - 49.7 fL 11/12/2023 5:45 AM T [facility] Red Cell Diameter Width 13.8 11.6 - 15.5 % 11/12/2023 5:45 AM CDT [facility] Platelet 205 160 - 397 K/uL 11/12/2023 5:45 AM T [facility] Mean Platelet Volume 10.1 9.1 - 12.6 fL 11/12/2023 5:45 AM T [facility] INRBC 0.0 0.0 - 0.1 /100 WBC 11/12/2023 5:45 AM T [facility] Comment: The INRBC (instrument NRBC) value reflects the enumeration of nucleated red blood cells contained in a 200uL sample of whole blood analyzed by the instrument. This value may differ from the NRBC value reported in a manual differential, which is based on a 100 cell differential. Neutrophil % 55.4 43.2 - 72.7 % 11/12/2023 5:45 AM CDT [facility] Lymphocyte % 35.0 16.8 - 46.2 % 11/12/2023 5:45 AM CDT [facility] Monocyte % 7.0 5.1 - 12.5 % 11/12/2023 5:45 AM CDT [facility] Eosinophil % 1.6 0.4 - 6.3 % 11/12/2023 5:45 AM CDT [facility] Basophil % 0.1(L) 0.2 - 1.4 % 11/12/2023 5:45 AM CDT [facility] IGRE % 0.9 0.1 - 1.5 % 11/12/2023 5:45 AM CDT [facility] Comment:The IGRE% includes M etamyelocytes, Myelocytes and Promyelocytes. Neutrophil Abs 3.89 1.95 - 7.25 K/uL 11/12/2023 5:45 AM CDT [facility] Lymphocyte Abs 2.45 1.01 - 3.24 K/uL 11/12/2023 5:45 AM CDT [facility] Monocyte Abs 0.49 0.24 - 0.85 K/uL 11/12/2023 5:45 AM CDT [facility] Eosinophil Abs 0.11 0.02 - 0.50 K/uL 11/12/2023 5:45 AM CDT [facility] Basophil Abs 0.01(L) 0.02 - 0.09 K/uL 11/12/2023 5:45 AM CDT [facility] IG Abs 0.06 0.01 - 0.12 K/uL 11/12/2023 5:45 AM CDT [facility] Blood Peripheral blood specimen / Unknown Venipuncture / Unknown 11/12/2023 5:10 AM CDT 11/12/2023 5:38 AM CDT Colby Malloy MD LAB BLOOD ORDERABLES [facility] Unless otherwise noted, all lab tests performed by: Division of Pathology and Laboratory Medicine [address] [place] [id number] * (ABNORMAL) Comprehensive Metabolic Panel (11/12/2023 5:10 AM CDT) Only the most recent of32 resultswithin the time period is included. Bilirubin Total <0.3 0.0 - 1.2 mg/dL 11/12/2023 6:15 AM CDT [facility] Comment:Indocyanine Green (I CG) may cause falsely elevated bilirubin results. Total and direct bilirubin must not be measured from samples containing indocyanine green. False elevation of total bilirubin can be seen in patients with IgG concentrations above 28 g/L. eGFR 83 >=60 mL/min/1. 73 sq. m 11/12/2023 6:15 AM CDT [facility] Comment: The eGFRcr is calculated [...] - 8.3 gm/dL 11/12/2023 6:15 AM CDT [facility] Calcium Level Total 8.2 8.2 - 10.2 mg/dL 11/12/2023 6:15 AM CDT [facility] Alkaline Phosphatase 75 35 - 104 U/L 11/12/2023 6:15 AM CDT [facility] Albumin Level 3.3(L) 3.5 - 5.2 gm/dL 11/12/2023 6:15 AM CDT [facility] AST 8 <=32 U/L 11/12/2023 6:15 AM CDT [facility] ALT 10 <=33 U/L 11/12/2023 6:15 AM CDT [facility] Sodium Level 143 136 - 145 mmol/L 11/12/2023 6:15 AM CDT [facility] Potassium Level 4.0 3.4 - 4.5 mmol/L 11/12/2023 6:15 AM CDT [facility] Chloride 106 98 - 107 mmol/L 11/12/2023 6:15 AM CDT [facility] CO2 27 22 - 29 mmol/L 11/12/2023 6:15 AM CDT [facility] Anion Gap 10 4 - 14 mmol/L 11/12/2023 6:15 AM CDT [facility] Creatinine 0.85 0.51 - 0.95 mg/dL 11/12/2023 6:15 AM CDT [facility] BUN 22 6 - 23 mg/dL 11/12/2023 6:15 AM CDT [facility] Glucose Level 79 70 - 99 mg/dL 11/12/2023 6:15 AM CDT [facility] Comment: Effective 10/13/15, the glucose reference intervals have been updated based on [place] Diabetes [employer] guidelines (Standards of Medical Care [...] CDT Colby Malloy MD LAB BLOOD ORDERABLES [facility] Unless otherwise noted, all lab tests performed by: Division of Pathology and Laboratory Medicine [address] [place] [id number] * Phosphorus Level (11/12/2023 5:10 AM CDT) Only the most recent of43 resultswithin the time period is included. Phosphorus Level 3.9 2.5 - 4.5 mg/dL 11/12/2023 6:15 AM CDT [facility] Blood Peripheral blood specimen / Unknown Venipuncture / Unknown 11/12/2023 5:10 AM CDT 11/12/2023 5:38 AM CDT Colby Malloy MD LAB BLOOD ORDERABLES Performing Organization Address City/[facility] de Phone Number [facility] Unless otherwise noted, all lab tests performed by: Division of Pathology and Laboratory Medicine [address] [place] [id number] * Magnesium Level (11/12/2023 5:10 AM CDT) Only the most recent of44 resultswithin the time period is included. Magnesium Level 2.2 1.6 - 2.6 mg/dL 11/12/2023 6:15 AM CDT [facility] Blood Peripheral blood specimen / Unknown Venipuncture / Unknown 11/12/2023 5:10 AM CDT 11/12/2023 5:38 AM CDT Colby Malloy MD LAB BLOOD ORDERABLES Performing Organization Address [facility] de Phone Number [facility] Unless otherwise noted, all lab tests performed by: Division of Pathology and Laboratory Medicine [address] [place] [id number] * Type and Screen (11/11/2023 5:30 AM CDT) Only the most recent of4 resultswithin the time period is included. ABORh A POS 11/11/2023 5:30 AM CDT [facility] ABSC Negative 11/11/2023 5:30 AM CDT [facility] Clot Expiration 2023 23:59 11/11/2023 5:30 AM CDT [facility] Historical Record Check Complete 11/11/2023 5:30 AM CDT [facility] Blood Peripheral blood specimen / Unknown Venipuncture / Unknown 11/11/2023 5:30 AM CDT 11/11/2023 5:44 AM CDT Colby Malloy MD BLOOD BANK TEST DOTTIE SESAY [facility] [address] [place] [address] * (ABNORMAL) Differential (11/09/2023 4:04 AM CDT) Only the most recent of6 resultswithin the time period is included. Total Cells 100 11/09/2023 9:30 AM CDT [facility] Manual Neutrophil % 45.0 43.2 - 72.7 % 11/09/2023 9:30 AM CDT [facility] Comment:The Neutrophil count includes Bands. Manual Lymphocyte % 46.0 16.8 - 46.2 % 11/09/2023 9:30 AM CDT [facility] Manual Monocyte % 7.0 5.1 - 12.5 % 11/09/2023 9:30 AM CDT [facility] Manual Eosinophil % 1.0 0.4 - 6.3 % 11/09/2023 9:30 AM CDT [facility] Metamyelocyte % 1.0(H) <=0.0 % 9:30 AM CDT [facility] Comment:The Metamyelocyte co unt includes Myelocytes. Manual Neutrophil Abs 2.84 1.95 - 7.25 K/uL 11/09/2023 9:30 AM CDT [facility] Manual Lymphocyte Abs 2.90 1.01 - 3.24 K/uL 11/09/2023 9:30 AM CDT [facility] Manual Monocyte Abs 0.44 0.24 - 0.85 K/uL 11/09/2023 9:30 AM CDT [facility] Manual Eosinophil Abs 0.06 0.02 - 0.50 K/uL 11/09/2023 9:30 AM CDT [facility] RBC Morphology PRESENT 11/09/2023 9:30 AM CDT [facility] PLT Morph Normal Normal 11/09/2023 9:30 AM CDT [facility] Anisocytosis Present(A) (none) 11/09/2023 9:30 AM CDT [facility] Macrocyte Present(A) (none) 11/09/2023 9:30 AM CDT [facility] Smudge Cells Present(A) (none) 11/09/2023 9:30 AM CDT [facility] Slide Comment SEE NOTE 11/09/2023 9:30 AM CDT [facility] Comment:Differential perform ed on Albumin prep. Blood Peripheral blood specimen / Unknown Venipuncture / Unknown 11/09/2023 4:04 AM CDT 11/09/2023 4:30 AM CDT Colby Malloy MD LAB BLOOD ORDERABLES [facility] Unless otherwise noted, all lab tests performed by: Division of Pathology and Laboratory Medicine [address] [place] [id number] * MRI CERVICAL THORACIC LUMBAR SPINE W [...] unexpected and potentially actionable. Colby Malloy MD [facility] MRI ORDERABLES * MRI Brain with and [...] 11/05/2023 8:51 PM CDT Addenda Addendum by Marlo Sykes MD on 11/08/2023 4:03 PM CDT [...] unexpected and potentially actionable. Frannie Emery MD IM CT ORDERABLES * Ammonia Level (11/05/2023 9:28 AM CDT) Only the most recent of5 resultswithin the time period is included. Ammonia Level 13 11 - 51 mcmol/L 11/05/2023 10:24 AM CDT [facility] Blood Peripheral blood specimen / Unknown Venipuncture / Unknown 11/05/2023 9:28 AM CDT 11/05/2023 9:31 AM CDT Colby Malloy MD LAB BLOOD ORDERABLES [facility] Unless otherwise noted, all lab tests performed by: Division of Pathology and Laboratory Medicine [address] [place] [id number] * (ABNORMAL) Vitamin B1 Level (11/05/2023 8:31 AM CDT) Thiamin( Bld)-Sasabe 304(H) 70 - 180 nmol/L 11/09/2023 12:35 AM CDT [facility] Comment: ADDITIONAL INFORMATION This test was developed and its performance characteristics determined by [facility] in a manner consistent with CLIA requirements. This test has not been cleared or approved by the U.S. Food and Drug Administration. Test Performed by: [facility] [place] [address] Science And Operations Officer: Jocelyne Gifford Ph.D.; CLIA# [id number] Blood Peripheral blood specimen / Unknown Venipuncture / Unknown 11/05/2023 8:31 AM CDT 11/05/2023 8:42 AM CDT Colby Malloy MD LAB BLOOD ORDERABLES [facility] * Folate, RBC (11/05/2023 8:27 AM CDT) Folate, RBC 673 >280 ng/mL RBC 11/06/2023 4:41 PM CDT [facility] Blood Peripheral blood specimen / Unknown Venipuncture / Unknown 11/05/2023 8:27 AM CDT 11/05/2023 8:42 AM CDT Narrative [facility] - 11/06/2023 4:41 PM CDT Performing Organization Information: [facility] [address] [place] [address] Neagr [place]rola Colby Malloy MD LAB BLOOD ORDERABLES [facility]) * Vitamin B6 Level (11/05/2023 8:27 AM CDT) [facility]-Sasabe 6 5 - 50 mcg/L 11/12/2023 3:33 AM CDT [facility] Comment: ADDITIONAL INFORMATION This test was developed and its performance characteristics determined by [facility] in a manner consistent with CLIA requirements. This test has not been cleared or approved by the U.S. Food and Drug Administration. Pyridoxic Acid (PA)-Sasabe 17 3 - 30 mcg/L 11/12/2023 3:33 AM CDT [facility] Comment: ADDITIONAL INFORMATION This test was developed and its performance characteristics determined by [facility] in a manner consistent with CLIA requirements. This test has not been cleared or approved by the U.S. Food and Drug Administration. Test Performed by: [facility] [place] [address] Science And Operations Officer: Jocelyne Gifford Ph.D.; CLIA# [id number] Blood Peripheral blood specimen / Unknown Venipuncture / Unknown 11/05/2023 8:27 AM CDT 11/05/2023 8:42 AM CDT Colby Malloy MD LAB BLOOD ORDERABLES [facility] * VBG (11/05/2023 8:27 AM CDT) Only the most recent of2 resultswithin the time period is included. [facility] pH Venous 7.40 7.32 - 7.43 11/05/2023 8:45 AM CDT [facility] P CO2 Venous 43.3 41.0 - 51.0 mmHg 11/05/2023 8:45 AM CDT [facility] P O2 Venous 35 mmHg 11/05/2023 8:45 AM CDT [facility] Bicarbonate Venous 27 21 - 28 mmol/L 11/05/2023 8:45 AM CDT [facility] Base Excess Venous 1 -2 - 3 mmol/L 11/05/2023 8:45 AM CDT [facility] Oxygen Saturation Venous 64 % 11/05/2023 8:45 AM CDT [facility] Oxygen FLOW Rate/ FiO2 0 % 11/05/2023 8:45 AM CDT [facility] O2 Therapy Room air 11/05/2023 8:45 AM CDT [facility] Blood Peripheral blood specimen / Unknown Venipuncture / Unknown 11/05/2023 8:27 AM CDT 11/05/2023 8:42 AM CDT Colby Malloy MD LAB BLOOD ORDERABLES [facility] Unless otherwise noted, all lab tests performed by: Division of Pathology and Laboratory Medicine [address] [place] [id number] * Methylmalonic Acid Quant, Serum (11/05/2023 8:26 AM CDT) Pathologist [facility] MMA Quant-Ovalle 0.23 <=0.40 nmol/mL 11/08/2023 10:57 AM CDT [facility] Comment: ADDITIONAL INFORMATION This test was developed and its performance characteristics determined by [facility] in a manner consistent with CLIA requirements. This test has not been cleared or approved by the U.S. Food and Drug Administration. Test Performed by: [address] [address] Science And Operations Officer: Jocelyne Gifford Ph.D.; CLIA# [id number] Blood Peripheral blood specimen / Unknown Venipuncture / Unknown 11/05/2023 8:26 AM CDT 11/05/2023 8:42 AM CDT Colby Malloy MD LAB BLOOD ORDERABLES [facility] * (ABNORMAL) Vitamin D 25OH (11/05/2023 8:26 AM CDT) [facility] Vitamin D 25 OH 11(L) 30 - 100 ng/mL 11/05/2023 9:43 AM CDT [facility] Blood Peripheral blood specimen / Unknown Venipuncture / Unknown 11/05/2023 8:26 AM CDT 11/05/2023 8:42 AM CDT Narrative [facility] - 11/05/2023 9:43 AM CDT Reference Range: Deficiency: <=20 ng/mL Insufficiency: 21-29 ng/mL Sufficiency: 30-100 ng/mL Potential toxicity: >100 ng/mL Cobly Malloy MD LAB BLOOD ORDERABLES [facility] Unless otherwise noted, all lab tests performed by: Division of Pathology and Laboratory Medicine [address] [place] [id number] * Vitamin E Level (11/05/2023 8:26 AM CDT) [facility] A-Tocopherol, Vit E-Sasabe 8.5 5.5 - 17.0 mg/L 11/07/2023 3:38 PM CDT [facility] Comment: ADDITIONAL INFORMATION This test was developed and its performance characteristics determined by [facility] in a manner consistent with CLIA requirements. This test has not been cleared or approved by the U.S. Food and Drug Administration. Test Performed by: [facility] - [address] [address] Science And Operations Officer: Jocelyne Gifford Ph.D.; CLIA# [id number] Blood Peripheral blood specimen / Unknown Venipuncture / Unknown 11/05/2023 8:26 AM CDT 11/05/2023 8:42 AM CDT Colby Malloy MD LAB BLOOD ORDERABLES [facility] * Homocysteine Total (11/05/2023 8:26 AM CDT) Homocysteine Total 11.4 <=15.0 mcmol/L 11/05/2023 9:17 AM CDT [facility] Blood Peripheral blood specimen / Unknown Venipuncture / Unknown 11/05/2023 8:26 AM CDT 11/05/2023 8:43 AM CDT Narrative [facility] - 11/05/2023 9:17 AM CDT Reference range established based on adult population Colby Malloy MD LAB BLOOD ORDERABLES Performing Organization Address City/[facility]/ZIP Co de Phone Number [facility] Unless otherwise noted, all lab tests performed by: Division of Pathology and Laboratory Medicine [address] [place] [phone] * Vitamin B12 Level (11/05/2023 8:26 AM CDT) Vitamin B12 Level 269 232 - 1,245 pg/mL 11/05/2023 9:24 AM CDT [facility] Is patient fasting? Yes 11/05/2023 9:24 AM CDT [facility] Blood Peripheral blood specimen / Unknown Venipuncture / Unknown 11/05/2023 8:26 AM CDT 11/05/2023 8:42 AM CDT Narrative [facility] - 11/05/2023 9:24 AM CDT Reference range established based on adult population. Colby Malloy MD LAB BLOOD ORDERABLES [facility] Unless otherwise noted, all lab tests performed by: Division of Pathology and Laboratory Medicine [address] [place] [id number] * Copper Level (11/05/2023 8:25 AM CDT) Pathologist [facility] Copper, S 152 77 - 206 mcg/dL 11/07/2023 11:04 AM CDT [facility] Comment: ADDITIONAL INFORMATION This test was developed and its performance characteristics determined by [facility] in a manner consistent with CLIA requirements. This test has not been cleared or approved by the U.S. Food and Drug Administration. Test Performed by: [address] [address] Science And Operations Officer: Jocelyne Gifford Ph.D.; CLIA# [id number] Blood Peripheral blood specimen / Unknown Venipuncture / Unknown 11/05/2023 8:25 AM CDT 11/05/2023 8:42 AM CDT Colby Malloy MD LAB BLOOD ORDERABLES Performing Organization Address City/[facility]/ZIP Co de Phone Number [facility] * Folate Level (11/05/2023 8:25 AM CDT) Pathologist [facility] Folate Level 12.2 4.8 - 24.2 ng/mL 11/05/2023 9:24 AM CDT [facility] Is patient fasting? Yes 11/05/2023 9:24 AM CDT [facility] Blood Peripheral blood specimen / Unknown Venipuncture / Unknown 11/05/2023 8:25 AM CDT 11/05/2023 8:42 AM CDT Narrative [facility] - 11/05/2023 9:24 AM CDT Reference range established based on adult population. Colby Malloy MD LAB BLOOD ORDERABLES [facility] Unless otherwise noted, all lab tests performed by: Division of Pathology and Laboratory Medicine [address] [place] [id number] * XR Abdomen 1 View Portable (11/04/2023 [...] unremarkable. IMPRESSION: No acute abnormality seen. Colby Melonie Mellissa TEARN IMG DIAGNOSTIC IMAGI NG ORDERABLES * (ABNORMAL) Urinalysis Microscopic Exam (11/04/2023 5:56 AM CDT) Only the most recent of6 resultswithin the time period is included. Urine Mucous Not Seen Not Seen, Trace /HPF 11/04/2023 6:42 AM CDT [facility] Urine Bacteria 1+(A) Not Seen /HPF 11/04/2023 6:42 AM CDT [facility] Urine Squamous Epithelial Cells OCC Not Seen, OCC, Rare /HPF 11/04/2023 6:42 AM CDT [facility] Urine WBC 25(H) <=2 /HPF 11/04/2023 6:42 AM CDT [facility] Urine RBC 15(H) <=2 /HPF 11/04/2023 6:42 AM CDT [facility] Urine Renal Epithelial Cells <1(H) <=0 /HPF 11/04/2023 6:42 AM CDT [facility] Urine Hyaline Casts 1 <=2 /LPF 11/04/2023 6:42 AM CDT [facility] Urine Voided urine specimen / Unknown Non-blood Collection / Unknown 11/04/2023 5:56 AM CDT 11/04/2023 6:30 AM CDT Abhijit Farr MD LAB BLOOD ORDERABLES [facility] Unless otherwise noted, all lab tests performed by: Division of Pathology and Laboratory Medicine [address] [place] [address] * (ABNORMAL) Urinalysis w/Microscopic if Indicated (11/04/2023 5:56 AM CDT) Only the most recent of6 resultswithin the time period is included. Urine Appearance Hazy(A) Clear 11/04/19 6:37 AM CDT [facility] Urine Color Yellow Colorless, Straw, Yellow, Dark Yellow, Straw-Yello w 11/04/2023 6:37 AM CDT [facility] Urine Specific [place] 1.038(H) 1.003 - 1.035 11/04/2023 6:37 AM CDT [facility] Urine pH 5.5 5.0 - 8.0 11/04/2023 6:37 AM CDT [facility] Urine Glucose Negative Negative mg/dL 11/04/2023 6:37 AM CDT [facility] Urine Ketones 40(A) Negative mg/dL 11/04/2023 6:37 AM CDT [facility] Urine Blood Small(A) Negative 11/04/2023 6:37 AM CDT [facility] Urine Protein 30(A) Negative mg/dL 11/04/2023 6:37 AM CDT [facility] Urine Bilirubin +1(A) Negative 6:37 AM CDT [facility] Urine Urobilinogen +1(A) Negative 11/04/2023 6:37 AM CDT [facility] Urine Nitrite Negative Negative 11/04/2023 6:37 AM CDT [facility] Urine Leukocyte Esterase Moderate(A) Negative 11/04/2023 6:37 AM CDT [facility] Urine Voided urine specimen / Unknown Non-blood Collection / Unknown 11/04/2023 5:56 AM CDT 11/04/2023 6:30 AM CDT Narrative [facility] - 11/04/2023 6:37 AM CDT Some reporting parameters within the Urinalysis test have changed due to the implementation of new instrumentation in the [place], allowing greater sensitivity of measurement. Urinalysis results reported by the [facility] using existing instrumentation, as well as Urinalysis testing performed manually or by back-up methodology at the [place], will remain relatively unchanged. New reporting parameters and units will now be reported for all campuses. Abhijit Farr MD URINE ORDERABLES [facility] Unless otherwise noted, all lab tests performed by: Division of Pathology and Laboratory Medicine [address] [place] [id number] * (ABNORMAL) Urine Culture (11/04/2023 5:56 AM CDT) Only the most recent of7 resultswithin the time period is included. Urine Culture 10-50,000 CFU/mL Escherichia coli(A) 11/06/2023 8:07 AM CDT [facility] Urine Voided urine specimen / Unknown Non-blood Collection / Unknown 11/04/2023 5:56 AM CDT 11/04/2023 6:30 AM CDT Narrative [facility] - 11/06/2023 8:07 AM CDT Culture also [...] Susceptible Abhijit Farr MD MICROBIOLOGY - [facility] AL ORDERABLES [facility] Unless otherwise noted, all lab tests performed by: Division of Pathology and Laboratory Medicine [address] [place] [id number] * POC Glucose Screen - Fingerstick (11/04/2023 12:26 AM CDT) Only the most recent of9 resultswithin the time period is included. [facility] Signature Glucose Screen 77 70 - 99 mg/dL 11/04/2023 12:28 AM CDT [facility] POC Sample Type Capillary 11/04/2023 12:28 AM CDT [facility] Blood 11/04/2023 12:2 6 AM CDT 11/04/2023 12:28 AM CDT Narrative [facility] - 11/04/2023 12:28 AM CDT Capillary blood [...] MD POCT ORDERABLES - DE VICE [facility] Unless otherwise noted, all lab tests performed by: Division of Pathology and Laboratory Medicine [address] [place] [id number] * CT Head without Contrast (11/04/2023 12:12 [...] of5 resultswithin the time period is included. POC VB pH. 7.377 7.310 - 7.410 11/04/2023 12:10 AM CDT [facility] POC VB pCO2. 41.5 41.0 - 51.0 mmHg 11/04/2023 12:10 AM CDT [facility] POC VB pO2. 25 mmHg 11/04/2023 12:10 AM CDT [facility] POC VB TCO2 26 24 - 29 mmol/L 11/04/2023 12:10 AM CDT [facility] POC VB Bicarb 24.4 23.0 - 28.0 mmol/L 11/04/2023 12:10 AM CDT [facility] POC VB Base Excess -1 -2 - 3 mmol/L 11/04/2023 12:10 AM CDT [facility] POC VB O2 Sat 45 % 11/04/2023 12:10 AM CDT [facility] POC VB LAC 0.91 0.90 - 1.70 mmol/L 11/04/2023 12:10 AM CDT [facility] POC FiO2 11/04/2023 12:10 AM CDT [facility] POC Sample Type Venous 11/04/2023 12:10 AM CDT [facility] Blood 11/04/2023 12:0 3 AM CDT 11/04/2023 12:10 AM CDT Narrative [facility] - 11/04/2023 12:10 AM CDT Method description: [...] MD POCT ORDERABLES - DE VICE [facility] Unless otherwise noted, all lab tests performed by: Division of Pathology and Laboratory Medicine [address] [place] [phone] * Fractionated Bilirubin (11/03/2023 11:47 PM CDT) Only the most recent of4 resultswithin the time period is included. Bilirubin Direct 11/04/19 12:21 AM CDT [facility] Comment: Direct and indirect bilirubin will not be reported when Total bilirubin result is <0.3 mg/dL Indocyanine Green (ICG) may cause falsely elevated bilirubin results. Total and direct bilirubin must not be measured from samples containing indocyanine green. Bilirubin Indirect 08/18/ 2024 12:21 AM CDT [facility] Comment:Direct and indirect bilirubin will not be reported when Total bilirubin result is <0.3 mg/dL Bilirubin Total <0.3 0.0 - 1.2 mg/dL 11/04/2023 12:21 AM CDT [facility] Comment: Direct and indirect bilirubin [...] Abhijit Farr MD LAB BLOOD ORDERABLES [facility] Unless otherwise noted, all lab tests performed by: Division of Pathology and Laboratory Medicine [address] [place] [id number] * aPTT (11/03/2023 11:47 PM CDT) Only the most recent of4 resultswithin the time period is included. Activated PTT 28.7 24.1 - 35.5 second(s) 11/04/2023 12:15 AM CDT [facility] Blood Peripheral blood specimen / Unknown Venipuncture / Unknown 11/03/2023 11:47 PM CDT 11/03/2023 11:50 PM CDT Abhijit Farr MD LAB BLOOD ORDERABLES [facility] Unless otherwise noted, all lab tests performed by: Division of Pathology and Laboratory Medicine [address] [place] [address] [id number] * Prothrombin Time with INR (11/03/2023 11:47 PM CDT) Only the most recent of4 resultswithin the time period is included. Prothrombin Time 13.5 11.9 - 14.5 second(s) 11/04/2023 12:15 AM CDT [facility] International Normalization Ratio 1.04 0.87 - 1.12 11/04/2023 12:15 AM CDT [facility] Blood Peripheral blood specimen / Unknown Venipuncture / Unknown 11/03/2023 11:47 PM CDT 11/03/2023 11:50 PM CDT Abhijit Farr MD LAB BLOOD ORDERABLES [facility] Unless otherwise noted, all lab tests performed by: Division of Pathology and Laboratory Medicine [address] [place] [address] [id number] * TSH (11/03/2023 11:47 PM CDT) Pathologist [facility] Thyroid Stimulating Hormone 3.37 0.27 - 4.20 mcunit/mL 11/04/2023 8:57 AM CDT [facility] Blood Peripheral blood specimen / Unknown Venipuncture / Unknown 11/03/2023 11:47 PM CDT 11/03/2023 11:50 PM CDT Colby Malloy MD LAB BLOOD ORDERABLES [facility] Unless otherwise noted, all lab tests performed by: Division of Pathology and Laboratory Medicine [address] [place] [address] [id number] * Free T4 (11/03/2023 11:47 PM CDT) Pathologist [facility] T4 (Thyroxine) Free 1.20 0.92 - 1.68 ng/dL 11/04/2023 8:57 AM CDT [facility] Blood Peripheral blood specimen / Unknown Venipuncture / Unknown 11/03/2023 11:47 PM CDT 11/03/2023 11:50 PM CDT Colby Malloy MD LAB BLOOD ORDERABLES Performing Organization Address [facility]/ZIP Co de Phone Number [facility] Unless otherwise noted, all lab tests performed by: Division of Pathology and Laboratory Medicine [address] [place] [phone] * (ABNORMAL) LDH (11/03/2023 11:47 PM CDT) Only the most recent of4 resultswithin the time period is included. LDH 216(H) 135 - 214 U/L 11/04/2023 12:21 AM CDT [facility] Blood Peripheral blood specimen / Unknown Venipuncture / Unknown 11/03/2023 11:47 PM CDT 11/03/2023 11:50 PM CDT Narrative [facility] - 11/04/2023 12:21 AM CDT Results greater than 1651 U/L may not be reliable due to matrix effect with extended dilution as it exceeds the pharmacy scheduler's recommended limit. Caution should be exercised when interpreting such values and done in conjunction with clinical context. Abhijit Farr MD LAB BLOOD ORDERABLES Performing Organization Address [facility] Co de Phone Number [facility] Unless otherwise noted, all lab tests performed by: Division of Pathology and Laboratory Medicine [address] [place] [address] [phone] * MRI Brain with and without Contrast [...] and agree with the final report. Tk Stevens [employer] IMG MRI ORDERABLES * (ABNORMAL) Urinalysis with Microscopic (10/01/2023 8:30 PM CDT) Urine Appearance Clear Clear 10/01/19 24 8:53 PM CDT [facility] Comment:This result was prev iously suppressed from the chart. Urine Color Straw Colorless, Straw, Yellow, Dark Yellow, Straw-Yellow 10/01/2023 8:53 PM CDT [facility] Comment:This result was prev iously suppressed from the chart. Urine Specific [place] 1.021 1.003 - 1.035 10/01/2023 8:53 PM CDT [facility] Comment:This result was prev iously suppressed from the chart. Urine pH 6.5 5.0 - 8.0 10/01/2023 8:53 PM CDT [facility] Comment:This result was prev iously suppressed from the chart. Urine Glucose Negative Negative mg/dL 10/01/2023 8:53 PM CDT [facility] Comment:This result was prev iously suppressed from the chart. Urine Ketones Negative Negative mg/dL 10/01/2023 8:53 PM CDT [facility] Comment:This result was prev iously suppressed from the chart. Urine Blood Small(A) Negative 10/01/2023 8:53 PM CDT [facility] Comment:This result was prev iously suppressed from the chart. Urine Protein Negative Negative mg/dL 10/01/2023 8:53 PM CDT [facility] Comment:This result was prev iously suppressed from the chart. Urine Bilirubin Negative Negative 8:53 PM CDT [facility] Urine Urobilinogen Negative Negative 10/01/2023 8:53 PM CDT [facility] Urine Nitrite Negative Negative 10/01/2023 8:53 PM CDT [facility] Comment:This result was prev iously suppressed from the chart. Urine Leukocyte Esterase Negative Negative 10/01/2023 8:53 PM CDT [facility] Comment:This result was prev iously suppressed from the chart. Urine WBC <1 <=2 /HPF 10/01/2023 8:53 PM CDT [facility] Urine RBC 1 <=2 /HPF 10/01/2023 8:53 PM CDT [facility] Urine Mucous Not Seen Not Seen, Trace /HPF 10/01/2023 8:53 PM CDT [facility] Comment:This result was prev iously suppressed from the chart. Urine Bacteria Not Seen Not Seen /HPF 10/01/2023 8:53 PM CDT [facility] Comment:This result was prev iously suppressed from the chart. Urine Squamous Epithelial Cells OCC Not Seen, OCC, Rare /HPF 10/01/2023 8:53 PM CDT [facility] Comment:This result was prev iously suppressed from the chart. Urine (Urine Clean Catch) Non-blood Collection / Unknown 10/01/2023 8:30 PM CDT 10/01/2023 8:33 PM CDT Narrative [facility] - 10/01/2023 8:53 PM CDT Some reporting parameters within the Urinalysis test have changed due to the implementation of new instrumentation in the [place], allowing greater sensitivity of measurement. Urinalysis results reported by the [facility] using existing instrumentation, as well as Urinalysis testing performed manually or by back-up methodology at the [place], will remain relatively unchanged. New reporting parameters and units will now be reported for all campuses. Erasmo Gamez MD URINE ORDERABLES [facility] Unless otherwise noted, all lab tests performed by: Division of Pathology and Laboratory Medicine [address] [place] [address] [phone] * Blood Culture (10/01/2023 11:58 AM CDT) Only the most recent of6 resultswithin the time period is included. Blood Culture No Growth. 10/06/2023 1:01 PM CDT [facility] Blood Peripheral blood specimen / Unknown Venipuncture / Unknown 10/01/2023 11:58 AM CDT 10/01/2023 12:05 PM CDT Cathy Ramirez MD MICROBIOLOGY - [facility] ORDERABLES [facility] Unless otherwise noted, all lab tests performed by: Division of Pathology and Laboratory Medicine [facility] [place] [address] * (ABNORMAL) Basic Metabolic Panel- Total Calcium (08/11/2023 5:02 AM CDT) Only the most recent of17 resultswithin the time period is included. Pathologist [facility] eGFR 103 >=60 mL/min/1.7 3 sq. m 08/11/2023 5:40 AM CDT [facility] Comment: The eGFRcr is calculated [...] 10.2 mg/dL 08/11/2023 5:40 AM CDT [facility] Sodium Level 141 136 - 145 mmol/L 08/11/2023 5:40 AM CDT [facility] Potassium Level 3.8 3.4 - 4.5 mmol/L 08/11/2023 5:40 AM CDT [facility] Chloride 106 98 - 107 mmol/L 08/11/2023 5:40 AM CDT [facility] CO2 24 22 - 29 mmol/L 08/11/2023 5:40 AM CDT [facility] Anion Gap 11 4 - 14 mmol/L 08/11/2023 5:40 AM CDT [facility] Creatinine 0.71 0.51 - 0.95 mg/dL 08/11/2023 5:40 AM CDT [facility] BUN 11 6 - 23 mg/dL 08/11/2023 5:40 AM CDT [facility] Glucose Level 92 70 - 99 mg/dL 08/11/2023 5:40 AM CDT [facility] Comment: Effective 10/13/15, the glucose reference intervals have been updated based on [place] [employer] guidelines (Standards of Medical Care [...] Asya Egan MD LAB BLOOD ORDERABLES [facility] Unless otherwise noted, all lab tests performed by: Division of Pathology and Laboratory Medicine [address] [place] [address] [phone] * Gastrointestinal Multiplex PCR Panel (08/04/2023 3:24 PM CDT) Only the most recent of3 resultswithin the time period is included. Campylobacter Not Detected Not Detected 08/04/2023 6:07 PM CDT [facility] Plesiomonas shigelloides Not Detected Not Detected 08/04/2023 6:07 PM CDT [facility] Salmonella Not Detected Not Detected 08/04/2023 6:07 PM CDT [facility] Vibrio Not Detected Not Detected 08/04/2023 6:07 PM CDT [facility] Vibrio cholerae Not Detected Not Detected 08/04/2023 6:07 PM CDT [facility] Yersinia enterocolitica Not Detected Not Detected 08/04/2023 6:07 PM CDT [facility] Enteroaggregative E. coli (EAEC) Not Detected Not Detected 08/04/2023 6:07 PM CDT [facility] Enteropathogenic E. coli (EPEC) Not Detected Not Detected 08/04/2023 6:07 PM CDT [facility] Enterotoxigenic E. coli (ETEC) LT/ST Not Detected Not Detected 08/04/2023 6:07 PM CDT [facility] Shiga-like toxin-producing E. coli (STEC) Stx1/Stx2 Not Detected Not Detected 08/04/2023 6:07 PM CDT [facility] E. coli O157 N/A Not Detected 08/04/2023 6:07 PM CDT [facility] Shigella/Enteroinvas lyndsay E. coli (EIEC) Not Detected Not Detected 08/04/2023 6:07 PM CDT [facility] Cryptosporidium Not Detected Not Detected 08/04/2023 6:07 PM CDT [facility] Cyclospora cayetanensis Not Detected Not Detected 08/04/2023 6:07 PM CDT [facility] Entamoeba histolytica Not Detected Not Detected 08/04/2023 6:07 PM CDT [facility] Giardia lamblia Not Detected Not Detected 08/04/2023 6:07 PM CDT [facility] Adenovirus F40/41 Not Detected Not Detected 08/04/2023 6:07 PM CDT [facility] Astrovirus Not Detected Not Detected 08/04/2023 6:07 PM CDT [facility] Norovirus GI/GII Not Detected Not Detected 08/04/2023 6:07 PM CDT [facility] Rotavirus A Not Detected Not Detected 08/04/2023 6:07 PM CDT [facility] Sapovirus (I, II, IV, V) Not Detected Not Detected 08/04/2023 6:07 PM CDT [facility] C. difficile Refer to separate C. difficile DNA Detection assay for results. 08/04/2023 6:07 PM CDT [facility] Stool Rectum structure / Unknown Non-blood Collection / Unknown 08/04/2023 3:24 PM CDT 08/04/2023 4:27 PM CDT Narrative [facility] - 08/04/2023 6:07 PM CDT The assay is a qualitative multiplex PCR assay to aid in the diagnosis of gastrointestinal infection through simultaneous qualitative detection and identification of multiple GI pathogens in diarrheal specimens collected in [employer] transport media obtained from individuals suspected of gastrointestinal infections. Testing is performed using the [employer] Gastrointestinal (GI) Panel on the [employer] System. The following organisms are identified using the [employer] GI Panel: Campylobacter spp., Plesiomonas shigelloides, Salmonella [...] verified by the microbiology laboratory at the [facility]. Results must be interpreted within the context of all relevant clinical and laboratory findings. Assay should not be used for monitoring response to therapy. Dany Bonilla MD MICROBIOLOGY - [facility] AL ORDERABLES [facility] Unless otherwise noted, all lab tests performed by: Division of Pathology and Laboratory Medicine [address] [place] [address] [id number] * C. difficile DNA Detection (08/04/2023 3:24 PM CDT) Only the most recent of4 resultswithin the time period is included. C. difficile - DNA Negative Negative 08/05/2023 10:34 AM CDT [facility] C. difficile - EIA Test Not Performed Negative 08/05/2023 10:34 AM CDT [facility] C. difficile - Interpretation C. difficile DNA detection was negative making C. difficile infection highly unlikely in this patient. EIA not performed. 08/05/2023 10:34 AM CDT [facility] Stool Rectum structure / Unknown Non-blood Collection / Unknown 08/04/2023 3:24 PM CDT 08/04/2023 4:27 PM CDT Narrative [facility] - 08/05/2023 10:34 AM CDT Qualitative detection of C. difficile DNA performed using helicase-dependent amplification of a conserved region of a pathogenicity locus (PaLoc) in toxigenic C. difficile strains. It is an FDA-approved assay performed on the [employer] Instrument from [employer] and is intended for use as an [...] rapid immunoassay using the FDA-approved ImmunoCard by [employer]. Patients positive for BOTH C. difficile DNA [...] verified by the microbiology laboratory at the [facility]. Results must be interpreted within the context of all relevant clinical and laboratory findings. Dany Bonilla MD MICROBIOLOGY - [facility] ORDERABLES [facility] Unless otherwise noted, all lab tests performed by: Division of Pathology and Laboratory Medicine [address] [place] [address] [id number] * (ABNORMAL) Procalcitonin (08/04/2023 4:19 AM CDT) Only the most recent of3 resultswithin the time period is included. Procalcitonin 0.48(H) <=0.08 ng/mL 08/04/2023 10:15 AM CDT [facility] Blood Peripheral blood specimen / Unknown Venipuncture / Unknown 08/04/2023 4:19 AM CDT 08/04/2023 5:16 AM CDT Narrative [facility] - 08/04/2023 10:15 AM CDT [...] with extended dilution as it exceeds the pharmacy scheduler's recommended limit. Caution should be exercised when interpreting such values and done in conjunction with clinical context. Dany Bonilla MD LAB BLOOD ORDERABLES [facility] Unless otherwise noted, all lab tests performed by: Division of Pathology and Laboratory Medicine [facility] [place] [address] * (ABNORMAL) Hepatic Function Panel (08/04/2023 4:19 AM CDT) Only the most recent of2 resultswithin the time period is included. Bilirubin Total <0.3 0.0 - 1.2 mg/dL 08/04/2023 11:14 AM CDT [facility] Comment: Direct and indirect bilirubin will not be reported when Total bilirubin result is <0.3 mg/dL Indocyanine Green (ICG) may cause falsely elevated bilirubin results. Total and direct bilirubin must not be measured from samples containing indocyanine green. False elevation of total bilirubin can be seen in patients with IgG concentrations above 28 g/L. Bilirubin Direct 08/04/19 11:14 AM CDT [facility] Comment: Direct and indirect bilirubin will not be reported when Total bilirubin result is <0.3 mg/dL Indocyanine Green (ICG) may cause falsely elevated bilirubin results. Total and direct bilirubin must not be measured from samples containing indocyanine green. Bilirubin Indirect 2023 11:14 AM CDT [facility] Comment:Direct and indirect bilirubin will not be reported when Total bilirubin result is <0.3 mg/dL Tot Protein 6.3(L) 6.4 - 8.3 gm/dL 08/04/2023 11:14 AM CDT [facility] Alkaline Phosphatase 93 35 - 104 U/L 08/04/2023 11:14 AM CDT [facility] Albumin Level 3.0(L) 3.5 - 5.2 gm/dL 08/04/2023 11:14 AM CDT [facility] AST 14 <=32 U/L 08/04/2023 11:14 AM CDT [facility] ALT 6 <=33 U/L 08/04/2023 11:14 AM CDT [facility] Blood Peripheral blood specimen / Unknown Venipuncture / Unknown 08/04/2023 4:19 AM CDT 08/04/2023 5:16 AM CDT Dany Bonilla MD LAB BLOOD ORDERABLES [facility] Unless otherwise noted, all lab tests performed by: Division of Pathology and Laboratory Medicine [address] [place] [place] [phone] * Respiratory Multiplex PCR Panel, Nasopharyngeal Swab (08/03/2023 11:06 AM CDT) Pathologist [facility] Adenovirus Not Detected Not Detected 08/03/2023 2:43 PM CDT [facility] Coronavirus 229E Not Detected Not Detected 08/03/2023 2:43 PM CDT [facility] Coronavirus HKU1 Not Detected Not Detected 08/03/2023 2:43 PM CDT [facility] Coronavirus NL63 Not Detected Not Detected 08/03/2023 2:43 PM CDT [facility] Coronavirus OC43 Not Detected Not Detected 08/03/2023 2:43 PM CDT [facility] COVID-19 (SARS-CoV-2) Not Detected Not Detected 08/03/2023 2:43 PM CDT [facility] Human Metapneumovirus Not Detected Not Detected 08/03/2023 2:43 PM CDT [facility] Human Rhinovirus/Enterov irus Not Detected Not Detected 08/03/2023 2:43 PM CDT [facility] Influenza A Not Detected Not Detected 08/03/2023 2:43 PM CDT [facility] Influenza A H1 Not Detected Not Detected 08/03/2023 2:43 PM CDT [facility] Influenza A H1 2009 Not Detected Not Detected 08/03/2023 2:43 PM CDT [facility] Influenza A H3 Not Detected Not Detected 08/03/2023 2:43 PM CDT [facility] Influenza B Not Detected Not Detected 08/03/2023 2:43 PM CDT [facility] Parainfluenza Virus 1 Not Detected Not Detected 08/03/2023 2:43 PM CDT [facility] Parainfluenza Virus 2 Not Detected Not Detected 08/03/2023 2:43 PM CDT [facility] Parainfluenza Virus 3 Not Detected Not Detected 08/03/2023 2:43 PM CDT [facility] Parainfluenza Virus 4 Not Detected Not Detected 08/03/2023 2:43 PM CDT [facility] Respiratory Syncytial Virus Not Detected Not Detected 08/03/2023 2:43 PM CDT [facility] Bordetella parapertussis Not Detected Not Detected 08/03/2023 2:43 PM CDT [facility] Bordetella pertussis Not Detected Not Detected 08/03/2023 2:43 PM CDT [facility] Chlamydophila pneumoniae Not Detected Not Detected 08/03/2023 2:43 PM CDT [facility] Mycoplasma pneumoniae Not Detected Not Detected 08/03/2023 2:43 PM CDT [facility] Swab Nasopharyngeal structure / Unknown Non-blood Collection / Unknown 08/03/2023 11:06 AM CDT 08/03/2023 11:26 AM CDT Narrative [facility] - 08/03/2023 2:43 PM CDT The assay is a qualitative multiplex PCR assay to aid in the diagnosis of respiratory pathogens through simultaneous qualitative detection and identification of multiple pathogens directly from nasopharyngeal swabs (CHEMICAL MIXER) from individuals with respiratory symptoms. Testing is performed using the Andro[employer] FilmArray Respiratory Panel 2.1 (RP2.1) on the Roamer System. The following organisms are identified using the [employer] RP 2.1 Panel: Adenovirus, Human Coronavirus (229E, [...] verified by the microbiology laboratory at the [facility] (CLIA Accreditation # [id number] and CAP Accreditation # [id number]). Results must be interpreted within the context of all relevant clinical and laboratory findings. Assay should not be used for monitoring response to therapy. Dany Bonilla MD MICROBIOLOGY - [facility] ORDERABLES [facility] Unless otherwise noted, all lab tests performed by: Division of Pathology and Laboratory Medicine [address] [place] [phone] * (ABNORMAL) Urinalysis with Reflex Culture (08/02/2023 5:30 PM CDT) Urine Appearance Cloudy(A) Clear 08/02/19 24 5:50 PM CDT [facility] Comment:This result was prev iously suppressed from the chart. Urine Color Yellow Colorless, Straw, Yellow, Dark Yellow, Straw-Yellow 08/02/2023 5:50 PM CDT [facility] Comment:This result was prev iously suppressed from the chart. Urine Specific [place] 1.011 1.003 - 1.035 08/02/2023 5:50 PM CDT [facility] Comment:This result was prev iously suppressed from the chart. Urine pH 6.0 5.0 - 8.0 08/02/2023 5:50 PM CDT [facility] Comment:This result was prev iously suppressed from the chart. Urine Glucose Negative Negative mg/dL 08/02/2023 5:50 PM CDT [facility] Comment:This result was prev iously suppressed from the chart. Urine Ketones 20(A) Negative mg/dL 08/02/2023 5:50 PM CDT [facility] Comment:This result was prev iously suppressed from the chart. Urine Blood Small(A) Negative 08/02/2023 5:50 PM CDT [facility] Comment:This result was prev iously suppressed from the chart. Urine Protein 30(A) Negative mg/dL 08/02/2023 5:50 PM CDT [facility] Comment:This result was prev iously suppressed from the chart. Urine Bilirubin Negative Negative 5:50 PM CDT [facility] Urine Urobilinogen Negative Negative 08/02/2023 5:50 PM CDT [facility] Urine Nitrite Negative Negative 08/02/2023 5:50 PM CDT [facility] Comment:This result was prev iously suppressed from the chart. Urine Leukocyte Esterase Large(A) Negative 08/02/2023 5:50 PM CDT [facility] Comment:This result was prev iously suppressed from the chart. Urine Mucous Not Seen Not Seen, Trace /HPF 08/02/2023 5:50 PM CDT [facility] Comment:This result was prev iously suppressed from the chart. Urine Bacteria 1+(A) Not Seen /HPF 08/02/2023 5:50 PM CDT [facility] Comment:This result was prev iously suppressed from the chart. Urine Squamous Epithelial Cells Not Seen Not Seen, OCC, Rare /HPF 08/02/2023 5:50 PM CDT [facility] Comment:This result was prev iously suppressed from the chart. Urine WBC 44(H) <=2 /HPF 08/02/2023 5:50 PM CDT [facility] Urine RBC 7(H) <=2 /HPF 08/02/2023 5:50 PM CDT [facility] Urine Voided urine specimen / Unknown Non-blood Collection / Unknown 08/02/2023 5:30 PM CDT 08/02/2023 5:36 PM CDT Narrative [facility] - 08/02/2023 5:50 PM CDT Some reporting parameters within the Urinalysis test have changed due to the implementation of new instrumentation in the Main [place], allowing greater sensitivity of measurement. Urinalysis results reported by the [facility] using existing instrumentation, as well as Urinalysis testing performed manually or by back-up methodology at the main campus, will remain relatively unchanged. New reporting parameters and units will now be reported for all campuses. Sujata Grant MD URINE ORDERABLES [facility] Unless otherwise noted, all lab tests performed by: Division of Pathology and Laboratory Medicine [facility] [place] [address] * EEG (08/01/2023 8:54 PM CDT) Narrative Brooklyn Mckeon MD - 08/01/2023 8:54 PM CDT Brooklyn Mckeon MD 08/02/2023 10:42 AM EEG REPORT Patient: Zari Posadas Age: 52 y.o. Consult Service: Neuro-Oncology Consult Date: August 01, 2023 Glass Forming Engineer: BROOKLYN MCKEON MD CLINICAL HISTORY This is [...] Metzger MD ECG ORDERABLES Performing Organization Address [facility]/ZIP Co de Phone Number CAR IECG * Troponin T (In-House) (07/30/2023 11:52 PM CDT) Troponin T 19 <=19 ng/L 07/31/2023 12:23 AM CDT [facility] Blood Peripheral blood specimen / Unknown Venipuncture / Unknown 07/30/2023 11:52 PM CDT 07/30/2023 11:55 PM CDT Narrative [facility] - 07/31/2023 12:23 AM CDT [...] MD LAB BLOOD ORDERABLES Performing Organization Address City/[facility]/ZIP Co de Phone Number [facility] Unless otherwise noted, all lab tests performed by: Division of Pathology and Laboratory Medicine [address] [place] [phone] * (ABNORMAL) Cardiac Panel (07/30/2023 8:55 PM CDT) Creatine Kinase 53 26 - 192 U/L 07/30/2023 9:36 PM CDT [facility] CKMB <2.0 <=5.3 ng/mL 07/30/2023 9:36 PM CDT [facility] Troponin T 22(H) <=19 ng/L 07/30/2023 9:36 PM CDT [facility] Comment: < 19 ng/L Suggest [...] MD LAB BLOOD ORDERABLES Performing Organization Address City/[facility] Co de Phone Number [facility] Unless otherwise noted, all lab tests performed by: Division of Pathology and Laboratory Medicine [address] [place] [phone] * (ABNORMAL) Potassium Level (07/28/2023 7:10 PM CDT) Potassium Level 2.9(L) 3.4 - 4.5 mmol/L 07/28/2023 7:44 PM CDT [facility] Blood Peripheral blood specimen / Unknown Venipuncture / Unknown 07/28/2023 7:10 PM CDT 07/28/2023 7:13 PM CDT Narrative [facility] - 07/28/2023 7:44 PM CDT Reference range established based on adult population Tammy Archuleta PA-C LAB BLOOD ORDERABLES Performing Organization Address City/[facility]/ZIP Co de Phone Number [facility] Unless otherwise noted, all lab tests performed by: Division of Pathology and Laboratory Medicine [address] [place] [phone] * (ABNORMAL) Lactoferrin Detection (07/25/2023 10:28 PM CDT) Only the most recent of2 resultswithin the time period is included. Lactoferrin - Interpretation Positive( A) Negative 07/26/2023 8:02 AM CDT [facility] Comment:Assay positive for l actoferrin indicating inflammatory cells present in fecal specimen. Recommend clinical correlation and further testing to identify cause of inflammation. Stool Rectum structure / Unknown Non-blood Collection / Unknown 07/25/2023 10:28 PM CDT 07/25/2023 11:16 PM CDT Narrative [facility] - 07/26/2023 8:02 AM CDT [...] verified by the microbiology laboratory at the [facility]. Results must be interpreted within the context of all relevant clinical and laboratory findings. Tammy Archuleta PA-C MICROBIOLOGY - [facility] AL ORDERABLES [facility] Unless otherwise noted, all lab tests performed by: Division of Pathology and Laboratory Medicine [address] [place] [phone] * (ABNORMAL) Calprotectin, Stool (07/25/2023 10:21 PM CDT) Only the most recent of2 resultswithin the time period is included. Pathologist [facility] Calprotectin [facility] 89.3(H) <50.0 (Normal) mcg/g 07/30/2023 11:40 AM CDT [facility] Comment: Interpretation: Borderline (50.0-120 mcg/g) Test Performed by: [facility] [address] [place] [id number] Science And Operations Officer: Shad Metzger M.D. Ph.D.; CLIA# [id number] Stool Rectum structure / Unknown Non-blood Collection / Unknown 07/25/2023 10:21 PM CDT 07/25/2023 11:16 PM CDT Tammy Archuleta PA-C MICROBIOLOGY - GENER AL ORDERABLES [facility] * CT Chest Abdomen Pelvis [...] 192 U/L 07/23/2023 10:35 AM CDT [facility] Blood Peripheral blood specimen / Unknown Venipuncture / Unknown 07/23/2023 9:47 AM CDT 07/23/2023 9:47 AM CDT Dalia Weiner SUSANA LAB BLOOD ORDERABL ES Performing Organization Address [facility] de Phone Number [facility] Unless otherwise noted, all lab tests performed by: Division of Pathology and Laboratory Medicine [address] [place] [address] * Hemoglobin A1c (07/05/2023 5:51 AM CDT) Hemoglobin A1c 5.3 4.3 - 5.6 % 07/05/2023 8:26 AM CDT [facility] Blood Peripheral blood specimen / Unknown Venipuncture / Unknown 07/05/2023 5:51 AM CDT 07/05/2023 6:18 AM CDT Narrative [facility] - 07/05/2023 8:26 AM CDT HbA1c values >=6.5% are diagnostic of diabetes mellitus. Diagnosis should be confirmed by repeat testing. Therapeutic Action suggested: >8.0% HbA1c; Goal of therapy: <7.0% HbA1c Monica Alberto MEZA LAB BLOOD ORDERABLES Performing Organization Address City/[facility]/ZIP Co de Phone Number [facility] Unless otherwise noted, all lab tests performed by: Division of Pathology and Laboratory Medicine [address] [place] [phone] * EEG (07/04/2023 7:57 PM CDT) Narrative Brooklyn Mckeon MD - 07/04/2023 7:57 PM CDT Brooklyn Mckeon MD 07/04/2023 8:01 PM EEG REPORT Patient: Zari Posadas Age: 52 y.o. Consult Service: Neuro-Oncology Consult Date: July 04, 2023 Glass Forming Engineer: BROOKLYN MCKEON MD CLINICAL HISTORY This is [...] seizures occurred during the recording. Saloni Man FURNACE INSTALLER HELPER,COMMUNICATIONS DESIGNER NEUROLOGY ORDERA BLES * Historical ABORh (07/03/2023 6:54 PM CDT) ABORh A POS 07/03/2023 6:55 PM CDT [facility] Blood Peripheral blood specimen / Unknown 07/03/2023 6:54 PM CDT 07/03/2023 6:54 PM CDT Zuri Farr MD BLOOD BANK TEST DOTTIE SESAY [facility] [address] [place] [address] * CKMB (07/03/2023 3:34 PM CDT) CKMB 3.9 <=5.3 ng/mL 07/03/2023 7:04 PM CDT [facility] Blood Peripheral blood specimen / Unknown Venipuncture / Unknown 07/03/2023 3:34 PM CDT 07/03/2023 6:32 PM CDT Abhijit Farr MD LAB BLOOD ORDERABLES Performing Organization Address City/[facility] Co de Phone Number [facility] Unless otherwise noted, all lab tests performed by: Division of Pathology and Laboratory Medicine [address] [place] [phone] * (ABNORMAL) Transferrin with TIBC (06/30/2023 4:26 AM CDT) Transferrin 167(L) 200 - 360 mg/dL 06/30/2023 7:41 AM CDT [facility] Total Iron Binding Capacity 234(L) 250 - 450 mcg/dL 06/30/2023 7:41 AM CDT [facility] Blood Peripheral blood specimen / Unknown Venipuncture / Unknown 06/30/2023 4:26 AM CDT 06/30/2023 4:41 AM CDT Isma Santoyo MD LAB BLOOD ORDERABL ES Performing Organization Address City/[facility] Co de Phone Number [facility] Unless otherwise noted, all lab tests performed by: Division of Pathology and Laboratory Medicine [address] [place] [phone] * Iron Level (06/30/2023 4:26 AM CDT) Iron Level 43 37 - 145 mcg/dL 06/30/2023 7:41 AM CDT [facility] Is patient fasting? 06/30/2023 7:41 AM CDT [facility] Blood Peripheral blood specimen / Unknown Venipuncture / Unknown 06/30/2023 4:26 AM CDT 06/30/2023 4:41 AM CDT Isma Santoyo MD LAB BLOOD ORDERABL ES Performing Organization Address City/[facility]/ZIP Co de Phone Number [facility] Unless otherwise noted, all lab tests performed by: Division of Pathology and Laboratory Medicine [address] [place] [phone] * Ferritin Level (06/30/2023 4:26 AM CDT) Ferritin Level 18 13 - 150 ng/mL 06/30/2023 7:41 AM CDT [facility] Blood Peripheral blood specimen / Unknown Venipuncture / Unknown 06/30/2023 4:26 AM CDT 06/30/2023 4:41 AM CDT Narrative [facility] - 06/30/2023 7:41 AM CDT Reference range established for age 17 - 60 years Isma Santoyo MD LAB BLOOD ORDERABL ES [facility] Unless otherwise noted, all lab tests performed by: Division of Pathology and Laboratory Medicine [address] [place] [phone] * VB Lactate (06/27/2023 5:59 PM CDT) Pathologist [facility] Venous Lactate 0.6 0.5 - 1.6 mmol/L 06/27/2023 6:08 PM CDT [facility] Oxygen FLOW Rate/ FiO2 06/27/2023 6:08 PM CDT [facility] O2 Therapy NONE 06/27/2023 6:08 PM CDT [facility] Blood Peripheral blood specimen / Unknown Venipuncture / Unknown 06/27/2023 5:59 PM CDT 06/27/2023 6:07 PM CDT Amanda Pearson MD LAB BLOOD ORDERABLES Performing Organization Address City/[facility]/ZIP Co de Phone Number [facility] Unless otherwise noted, all lab tests performed by: Division of Pathology and Laboratory Medicine [address] [place] [phone] * (ABNORMAL) ESR (06/27/2023 5:59 PM CDT) Sedimentation Rate 104(H) <=30 mm/hr 2023 7:27 PM CDT [facility] Blood Peripheral blood specimen / Unknown Venipuncture / Unknown 06/27/2023 5:59 PM CDT 06/27/2023 6:04 PM CDT Amanda Pearson MD LAB BLOOD ORDERABLES Performing Organization Address City/[facility]/ZIP Co de Phone Number [facility] Unless otherwise noted, all lab tests performed by: Division of Pathology and Laboratory Medicine [address] [place] [address] * CRP (06/27/2023 5:59 PM CDT) [facility] CRP (C Reactive Protein) 13.81 mg/L 06/27/2023 7:02 PM CDT [facility] Blood Peripheral blood specimen / Unknown Venipuncture / Unknown 06/27/2023 5:59 PM CDT 06/27/2023 6:04 PM CDT Narrative [facility] - 06/27/2023 7:02 PM CDT Adult Reference ranges for HS CRP assay are as follows: Reference ranges when used to assess cardiac risk: <1.00 mg/L Low cardiovascular risk 1.00-3.00 mg/L Average cardiovascular risk >3.00 mg/L High cardiovascular risk Reference ranges when used to assess inflammatory responses: Less than or equal to 10.00 mg/L. Amanda Pearson MD LAB BLOOD ORDERABLES Performing Organization Address [facility] Co de Phone Number [facility] Unless otherwise noted, all lab tests performed by: Division of Pathology and Laboratory Medicine [address] [place] [phone] * (ABNORMAL) Lipid panel (04/18/2023 2:50 PM COFFIN MAKER) [facility] Cholesterol Total 276(H) <=199 mg/dL 04/18/2023 4:02 PM COFFIN MAKER [facility] Comment: ATP III Classification of Total Cholesterol - Primary Target of Therapy (in mg/dL): <200 Desirable 200-239 Borderline high >=240 High Triglyceride 99 <=149 mg/dL 04/18/2023 4:02 PM [facility] Comment: ATP III Classification of Serum Triglycerides Primary Target of Therapy (in mg/dL): <150 Normal 150-199 Borderline high 200-499 High >=500 Very high Non-fasting triglycerides >200 mg/dL may be followed up with a fasting Lipid Panel. Calculated LDL-C may be falsely decreased when non-fasting triglycerides >200 mg/dL. HDL Cholesterol 95 >=40 mg/dL 04/18/2023 4:02 PM COFFIN MAKER [facility] LDL Cholesterol 161(H) <=100 mg/dL 04/18/2023 4:02 PM COFFIN MAKER [facility] Comment: ATP III Classification of LDL Cholesterol Primary Target of Therapy (in mg/dL): <100 Optimal 100-129 Near optimal/above optimal 130-159 Borderline high 160-189 High >=190 Very high Very Low Density Lipoprotein 20 mg/dL 04/18/2023 4:02 PM COFFIN MAKER [facility] Is patient fasting? No 04/18/2023 4:02 PM COFFIN MAKER [facility] Comment:last meal longer ray n than 4 hrs prior Blood Peripheral blood specimen / Unknown Venipuncture / Unknown 04/18/2023 2:50 PM COFFIN MAKER 04/18/2023 2:52 PM COFFIN MAKER Sindi Casiano MD LAB BLOOD ORDERABLES [facility] Unless otherwise noted, all lab tests performed by: Division of Pathology and Laboratory Medicine [address] [place] [phone] [facility] Unless otherwise noted, all lab tests performed by: Division of Pathology and Laboratory Medicine [address] [place] [phone] * (ABNORMAL) POC Creatinine (04/16/2023 4:39 PM COFFIN MAKER) Only the most recent of2 resultswithin the time period is included. POC Creatinine 1.2 0.6 - 1.3 mg/dL 04/16/2023 4:41 PM COFFIN MAKER [facility] Comment:Medications, especia lly hydroxyurea or supplements, such as ascorbate, can interfere with test results causing a falsely and significantly higher result than expected. If a problem is suspected with a patient's result, a sample should be sent to the laboratory for confirmatory testing. POC eGFR 55(L) >=60 mL/min/1.7 3 sq. m 04/16/2023 4:41 PM COFFIN MAKER [facility] Comment: The eGFRcr is calculated [...] criteria for CKD. Blood 04/16/2023 4:39 PM COFFIN MAKER 04/16/2023 4:41 PM COFFIN MAKER Narrative [facility] - 04/16/2023 4:41 PM COFFIN MAKER Method description: The i-STAT is an analyzer [...] Dalia Weiner APRN POCT ORDERABLES - DEVICE [facility] Unless otherwise noted, all lab tests performed by: Division of Pathology and Laboratory Medicine [address] [place] [phone] * MRI Brain with and without Contrast - Frameless Gamma Knife (04/09/2023 8:55 AM COFFIN MAKER) Anatomical Region Laterality Modality Head Magnetic Resonan ce 04/09/2023 10:1 7 AM COFFIN MAKER Impressions 04/09/2023 10:38 AM COFFIN MAKER No new metastasis or leptomeningeal disease. Several lesions demonstrate interval progression with stability of many other enhancing lesions. ACTIONABLE ITEMS/RECOMMENDATIONS: None. Narrative 04/09/2023 10:38 AM COFFIN MAKER FULL RESULT: Examination: MRI BRAIN WITH AND [...] lesions. ACTIONABLE ITEMS/RECOMMENDATIONS: None. Saira Carrasquillo APRN IMG MRI ORDERABLES after 01/05/2023 Advance Directives Documents on File Type Date Recorded Patient Barrel Raiser Helper Expl anation Advance Directives: Medical Power of Electronic Equipment Maint Tech 06/28/2023 Medical Power of Att orney * [...] 7:36 PM 07/07/2023 8:52 PM Care Teams Samples And Repairs Preparer Relationship Specialty Start Date End Date Luisana Lucio MD [address] [place] [phone] [email or web address] PCP - External Primary Care Provider Obstetrics/Gynecology 07/17/16 Roseann Jensen MD [address] [place] [phone] [email or web address] PCP - External Referring Otolaryngology 07/19/16 Sindi Casiano MD [address] [place] [phone] [email or web address] PCP - General Thoracic Medicine 11/24/20 Ajith Fink MD [address] [place] [phone] [email or web address] Consulting Physician Nephrology 08/12/21 Annette Kang MD [address] [place] [phone] [email or web address] Consulting Physician Gastroenterology, Hepatology and Nutrition 12/03/20 Frannie Emery MD [address] [place] [phone] [email or web address] Consulting Physician Neurosurgery 05/21/23 Rajinder English APRN [address] [place] [address] [email or web address] Nurse Practitioner Neurosurgery 05/21/23
[2024-01-05] MEDS ORDERED: NA CHLORIDE 0.9% 1,000 ML ONE (13:58)
[2024-01-05 14:16] LABS: Absolute Eosinophils 0.1 K/uL (0-0.5); Absolute Lymphocytes (CBC) 0.9 K/uL (0.7-4.9); Absolute Monocytes 0.5 K/uL (0.1-1.3); Absolute Neutrophil 4.2 K/uL (1.8-8.0); Basophils % 0.4 % (0-1.3); Eosinophils % 1.4 % (0-4.4); Hematocrit 34.9 % (36.0-45.0); Hemoglobin 11.3 g/dL (12.0-15.0); Lymphocytes % 15.9 % (15.3-44.8); MCH 29.2 pg (27.0-35.0); MCHC 32.5 g/dL (32.0-36.0); MCV 89.9 fL (80-100); MPV 7.8 fL (7.6-11.3); Monocytes % 8.6 % (3.3-12.3); Neutrophils % 73.7 % (41.7-73.7); Platelets 289 thou/uL (152-406); RBC Red Blood Cell Count 3.88 M/uL (3.86-4.86)
--- NOTE | 2024-01-05 15:26 | RAD REPORT ---
EXAM: Chest Abdomen Pelvis W Cont CLINICAL INDICATION: Chest and abdominal pain TECHNIQUE: CT chest, abdomen and pelvis was performed, with 100 cc Isovue-300 IV contrast, as per de partment protocol. Axial, sagittal and coronal reconstructions were obtained. One or more of the following dose reduction techniques were used: Automated exposure control, adjustment of the mA and/o r kV according to the patient size, and/or iterative reconstruction. Unless otherwise specified, incidental findings do not require dedicated imaging follow-up. [id number]. Oral contrast not given. This limits evaluation of the bowel. COMPARISON: None FINDINGS: A pulmonary contusion not seen. No mediastinal hematoma noted No pleural effusion.. No pericardial effusion Liver, spleen, pancreas, adrenals, kidneys and bladder do not demonstrate any acute traumatic injury. A contusion is present within the left anterior subcutaneous fat of the pelvis. There is no evidence of diverticulitis Gastric band present IMPRESSION: Contusion left anterior subcutaneous fat of the pelvis
--- NOTE | 2024-01-05 16:13 | ER ---
Nurse's Notes [facility] Name: Zari Posadas Age: 53 yrs Sex: Female : 1970 Arrival Date: 01/05/2024 Time: 13:08 Bed 17 Private MD: Diagnosis: Fall on same level, unspecified;Unspecified symptoms and signs involving the musculoskeletal system;Abdominal pain, unspecified;Contusion of abdominal wall-left anterior Presentation: 01/04 13:09 Chief complaint: EMS states: "pt fell yesterday and was seen here and cleared. No LOC. mb9 Pt woke up this morning and states she hurts on her left thigh.". Coronavirus screen: Vaccine status: Patient reports receiving the 2nd dose of the covid vaccine. Ebola Screen: No symptoms or risks identified at this time. Initial Sepsis Screen: Does the patient meet any 2 criteria? No. Patient's initial sepsis screen is negative. Does the patient have a suspected source of infection? No. Patient's initial sepsis screen is negative. Risk Assessment: Do you want to hurt yourself or someone else? Patient reports no desire to harm self or others. Onset of symptoms was January 05, 2024. 13:09 Acuity: TYSHAWN 4 mb9 13:09 Method Of Arrival: EMS: [facility] mb9 Historical: - Allergies: 13:12 ambien; mb9 - PMHx: 13:12 brain cancer; Lung Cancer; Seizures; mb9 - Immunization history:: Adult Immunizations up to date. - Infectious Disease History:: Denies. - Social history:: Smoking status: Patient denies any tobacco usage or history of. Screenin:12 [facility] ED Fall Risk Assessment (Adult) History of falling in the last 3 months, mb9 including since admission Yes- fall prone (multiple falls) (3 pts) Confusion or Disorientation Yes (5 pts) Intoxicated or Sedated No (0 pts) Impaired Gait Yes (1 pt) Mobility Assist Device Used Yes (1 pt) Altered Elimination Yes (1 pt) Score/Fall Risk Level 3 or more points = High Risk Oriented to surroundings, Maintained a safe environment, Educated pt \\T\\ family on fall prevention, incl call for assistance when getting out of bed, Assessed \\T\\ reinforced patient's understanding of fall precautions, Provided non-skid footwear. Abuse screen: Denies threats or abuse. Nutritional screening: No deficits noted. Tuberculosis screening: No symptoms or risk factors identified. Assessment: 13:10 General: Appears in no apparent distress. comfortable, Behavior is calm, cooperative. rs5 Pain: Complains of pain in all over Pain currently is 8 out of 10 on a pain scale. Quality of pain is described as aching, Is continuous. 13:10 Neuro: Level of Consciousness is awake, alert, obeys commands, Oriented to person, rs5 place, time, situation. Cardiovascular: Patient's skin is warm and dry. Respiratory: Airway is patent Respiratory effort is even, unlabored, Respiratory pattern is regular, symmetrical. GI: Abdomen is round non-distended. : No signs and/or symptoms were reported regarding the genitourinary system. EENT: No signs and/or symptoms were reported regarding the EENT system. Derm: Skin is intact, Skin is pink, warm \\T\\ dry. Musculoskeletal: Range of motion: intact in all extremities. 14:18 Reassessment: Patient and/or family updated on plan of care and expected duration. Pain rs5 level reassessed. Patient is alert, oriented x 3, equal unlabored respirations, skin warm/dry/pink. 15:22 Reassessment: Patient and/or family updated on plan of care and expected duration. Pain rs5 level reassessed. Patient is alert, oriented x 3, equal unlabored respirations, skin warm/dry/pink. 16:20 Reassessment: pt up for discharge, family contacted for transport, ETA 1 hour, charge rs5 nurse notified . 17:28 Reassessment: Patient and/or family updated on plan of care and expected duration. Pain rs5 level reassessed. Patient is alert, oriented x 3, equal unlabored respirations, skin warm/dry/pink. Vital Signs: 13:09 BP 109 / 83; Pulse 95; Resp 16; Temp 98; Pulse Ox 100% on R/A; mb9 15:30 BP 112 / 81; Pulse 81; Resp 17; Pulse Ox 99% on R/A; rs5 17:04 BP 115 / 77; Pulse 70; Resp 17; Pulse Ox 99% on R/A; rs5 17:40 BP 117 / 74; Pulse 74; Resp 17; Pulse Ox 99% on R/A; rs5 ED Course: 13:09 Patient arrived in ED. sb4 13:09 Arm band placed on. mb9 13:11 Triage completed. mb9 13:12 Bed in low position. Call light in reach. Side rails up X 1. Provided Education on: mb9 press call light if needing anything. Client placed on continuous cardiac and pulse oximetry monitoring. NIBP monitoring applied. 13:23 Axel Weiner MD is Attending Physician. sudhakar 13:40 Ruben Carter, RN is Primary Nurse. rs5 14:00 Inserted saline lock: 20 gauge in right antecubital area, using aseptic technique. rs5 Blood collected. Flushed with 10 mL NS. 14:18 No provider procedures requiring assistance completed. rs5 15:09 CT Chest, Abdomen, Pelvis - W/Contrast In Process Unspecified. EDMS 17:50 IV discontinued, intact, bleeding controlled, No redness/swelling at site. Pressure rs5 dressing applied. Administered Medications: 14:10 Drug: NS 0.9% IV 1000 ml IV at 1000 ml once; to be given as a bolus over 60 minutes rs5 Route: IV; Rate: 1000 ml; Site: right antecubital; 15:15 Follow up: Response: No adverse reaction; IV Status: Completed infusion; IV Intake: rs5 1000ml 14:18 Not Given (Patient Refused): prochlorperazinesuppository 25 mg [place] once rs5 Medication: 13:13 VIS not applicable for this client. mb9 Intake: 15:15 IV: 1000ml; Total: 1000ml. rs5 Outcome: 16:12 Discharge ordered by . [facility] 17:50 Discharged to home via wheelchair, with family, rs5 17:50 Condition: stable rs5 17:50 Discharge instructions given to patient, family, Instructed on discharge instructions, follow up and referral plans. medication usage, Demonstrated understanding of instructions, follow-up care, medications, Prescriptions given X 3, 17:54 Patient left the ED. iw Signatures: Dispatcher [employer] EDMS Axel Weiner MD MD cha Williams, Irene, RN Cate Ace, PA-C PA-C [id number] Sofie Medina RN RN mb9 Ruben Carter, RN RN rs5 Corrections: (The following items were deleted from the chart) 13:28 13:09 Chief complaint: EMS states: "pt fell yesterday and was seen here and cleared. No mb9 LOC. Pt woke up this morning and states she hurts on her left thigh and stomach." mb9 14:18 13:10 Pain: Complains of pain in left leg Pain currently is 8 out of 10 on a pain rs5 scale. Quality of pain is described as aching, Is continuous, rs5
--- NOTE | 2024-01-05 16:13 | EDPHYS ---
Physician Documentation [facility] Name: Zari Posadas Age: 53 yrs Sex: Female : 1970 Arrival Date: 01/05/2024 Time: 13:08 Bed 17 Private MD: ED Physician Axel Weiner HPI: 01/04 15:01 This 53 yrs old Female presents to ER via EMS with complaints of Fall Injury. sudhakar 15:01 Details of fall: The patient fell from an upright position, while standing. Onset: The sudhakar symptoms/episode began/occurred 1 day(s) ago. Associated injuries: The patient sustained neck injury, upper back injury, decreased range of motion, injury to the low back, decreased range of motion, injury to the chest, injury to the abdomen. Severity of symptoms: At their worst the symptoms were mild, moderate, in the emergency department the symptoms are unchanged. The patient has experienced a previous episode, yesterday. Historical: - Allergies: 13:12 ambien; mb9 - PMHx: 13:12 brain cancer; Lung Cancer; Seizures; mb9 - Immunization history:: Adult Immunizations up to date. - Infectious Disease History:: Denies. - Social history:: Smoking status: Patient denies any tobacco usage or history of. ROS: 15:03 Constitutional: Negative for fever, chills, and weight loss, Eyes: Negative for injury, sudhakar pain, redness, and discharge, ENT: Negative for injury, pain, and discharge, Neck: Negative for injury, pain, and swelling, Cardiovascular: Negative for chest pain, palpitations, and edema, Respiratory: Negative for shortness of breath, cough, wheezing, and pleuritic chest pain, : Negative for injury, bleeding, discharge, and swelling, MS/Extremity: Negative for injury and deformity, Skin: Negative for injury, rash, and discoloration, Neuro: Negative for headache, weakness, numbness, tingling, and seizure, Psych: Negative for depression, anxiety, suicide ideation, homicidal ideation, and hallucinations, Allergy/Immunology: Negative for hives, rash, and allergies, Endocrine: Negative for neck swelling, polydipsia, polyuria, polyphagia, and marked weight changes, Hematologic/Lymphatic: Negative for swollen nodes, abnormal bleeding, and unusual bruising, 15:03 Abdomen/GI: Positive for abdominal pain, 15:03 Back: Positive for decreased range of motion, pain at rest, pain with movement, Exam: 15:03 Constitutional: This is a well developed, well nourished patient who is awake, alert, sudhakar and in no acute distress. Head/Face: Normocephalic, atraumatic. Eyes: Pupils equal round and reactive to light, extra-ocular motions intact. Lids and lashes normal. Conjunctiva and sclera are non-icteric and not injected. Cornea within normal limits. Periorbital areas with no swelling, redness, or edema. ENT: Nares patent. No nasal discharge, no septal abnormalities noted. Tympanic membranes are normal and external auditory canals are clear. Oropharynx with no redness, swelling, or masses, exudates, or evidence of obstruction, uvula midline. Mucous membranes moist. Neck: Trachea midline, no thyromegaly or masses palpated, and no cervical lymphadenopathy. Supple, full range of motion without nuchal rigidity, or vertebral point tenderness. No Meningismus. Chest/axilla: Normal chest wall appearance and motion. Nontender with no deformity. No lesions are appreciated. Cardiovascular: Regular rate and rhythm with a normal S1 and S2. No gallops, murmurs, or rubs. Normal PMI, no JVD. No pulse deficits. Respiratory: Lungs have equal breath sounds bilaterally, clear to auscultation and percussion. No rales, rhonchi or wheezes noted. No increased work of breathing, no retractions or nasal flaring. Back: No spinal tenderness. No costovertebral tenderness. Full range of motion. Skin: Warm, dry with normal turgor. Normal color with no rashes, no lesions, and no evidence of cellulitis. MS/ Extremity: Pulses equal, no cyanosis. Neurovascular intact. Full, normal range of motion. Neuro: Awake and alert, GCS 15, oriented to person, place, time, and situation. Cranial nerves II-XII grossly intact. Motor strength 5/5 in all extremities. Sensory grossly intact. Cerebellar exam normal. Normal gait. Psych: Awake, alert, with orientation to person, place and time. Behavior, mood, and affect are within normal limits. 15:03 Abdomen/GI: Inspection: abdomen appears normal, Bowel sounds: normal, Palpation: mild abdominal tenderness, in all quadrants, Liver: no appreciated palpable abnormalities, Hernia: not appreciated, Vital Signs: 13:09 BP 109 / 83; Pulse 95; Resp 16; Temp 98; Pulse Ox 100% on R/A; mb9 15:30 BP 112 / 81; Pulse 81; Resp 17; Pulse Ox 99% on R/A; rs5 17:04 BP 115 / 77; Pulse 70; Resp 17; Pulse Ox 99% on R/A; rs5 17:40 BP 117 / 74; Pulse 74; Resp 17; Pulse Ox 99% on R/A; rs5 MDM: 13:33 Medical Screening Exam initiated sudhakar 15:05 Differential diagnosis: closed head injury, contusion, fracture, laceration, multiple sudhakar trauma, sprain, strain. Data reviewed: vital signs, nurses notes, lab test result(s), radiologic studies, CT scan. Consideration of Admission/Observation Escalation of care including admission/observation considered. I considered the following discharge prescriptions or medication management in the emergency department Medications were administered in the Emergency Department. See MAR. Independent interpretation of the following test(s) in the Emergency Department CT Scan: My interpretation is ct c/a/p. Historians other than the Patient: Daughter/Son: daughter. Care significantly affected by the following chronic conditions: Cancer, seizures. Counseling: I had a detailed discussion with the patient and/or guardian regarding the historical points, exam findings, and any diagnostic results supporting the discharge/admit diagnosis, lab results, radiology results. 01/04 13:52 Order name: CBC with Diff; Complete Time: 15:[address] [facility] 01/04 13:52 Order name: CT Chest, Abdomen, Pelvis - W/Contrast; Complete Time: 17:[address] [facility] 01/04 16:13 Order name: INCENTIVE SPIROMETRY sudhakar Administered Medications: 14:10 Drug: NS 0.9% IV 1000 ml IV at 1000 ml once; to be given as a bolus over 60 minutes rs5 Route: IV; Rate: 1000 ml; Site: right antecubital; 15:15 Follow up: Response: No adverse reaction; IV Status: Completed infusion; IV Intake: rs5 1000ml 14:18 Not Given (Patient Refused): prochlorperazinesuppository 25 mg [place] once rs5 Disposition Summary: 01/05/24 16:12 Discharge Ordered Notes: Location: Home sudhakar Problem: new sudhakar Symptoms: have improved sudhakar Condition: Stable sudhakar Diagnosis - Fall on same level, unspecified sudhakar - Unspecified symptoms and signs involving the musculoskeletal system sudhakar - Abdominal pain, unspecified sudhakar - Contusion of abdominal wall - left anterior sudhakar Followup: sudhakar - With: Private Physician - When: 2 - 3 days - Reason: Recheck today's complaints, Continuance of care, Re-evaluation by your physician Discharge Instructions: - Discharge Summary Sheet sudhakar - Abdominal Pain, Adult sudhakar - Contusion sudhakar - Fall Prevention in the Home, Adult sudhakar - Musculoskeletal Pain sudhakar - Contusion, [id number] [facility] Forms: - Medication Reconciliation Form [facility] - Antibiotic Education sudhakar - Prescription Opioid Use sudhakar - Patient Portal Instructions [facility] - Leadership Thank You Letter [facility] Prescriptions: - acetaminophen-codeine 300-15 mg Oral tablet - take 1 tablet ORAL route every 4 to 6 hours; 20 tablet; Refills: 0, Product [facility] Selection Permitted - Valium 2 mg Oral Tablet - take 1 tablet ORAL route every 8 hours As needed; 20 tablet; Refills: 0, [facility] Product Selection Permitted - Motrin IB 200 mg Oral tablet - take 2 tablet ORAL route every 6 hours As needed as needed with food; 30 sudhakar tablet; Refills: 0, Product Selection Permitted Signatures: Dispatcher [employer] EDMS Axel Weiner MD MD cha Wilkerson, Sofie Pino RN RN mb9 Ruben Carter, RN RN rs5 Corrections: (The following items were deleted from the chart) 13:52 13:52 Chest Abdomen Pelvis W [id number] ordered. EDMS EDMS
[2024-01-05 20:22] VITALS: TEMP 98
[2024-01-05 20:27] VITALS: BP 112/81; O2SAT 99
== END 2024-01-05 17:54 | disposition home or self-care (01) ==
LOC: ER 13:08
DX: S30.1XXA Contusion of abdominal wall, initial encounter (principal); R29.91 Unspecified symptoms and signs involving the musculoskeletal system; W18.30XA Fall on same level, unspecified, initial encounter; Z85.841 Personal history of malignant neoplasm of brain; Z85.118 Personal history of other malignant neoplasm of bronchus and lung
CPT/HCPCS: 85025; 36415; 71260; 74177; 96360; 99284; Q9967; J7030

== ENCOUNTER 2024-01-12 15:21 | Inpatient (IN) | payer OTHER ==
--- OUTSIDE RECORDS SUMMARY | 2024-01-12 15:28 | XMS REPORT | Clinical Summary ---
Author Name Unknown Organization [facility] Address [address] [place] [address] Care Team Providers Care Local Flatbed Driver Name Role Phone Luisana Lucio MD Unavailable [phone] Roseann Jensen MD Unavailable [phone] Sindi Casiano MD Primary Care Provider [phone] Ajith Fink MD Unavailable Annette Kang MD Unavailable [phone] Frannie Emery MD Unavailable [phone] Rajinder English APRN Unavailable Allergies Active Allergy [...] Overview: Added automatically from request for surgery [id number] Lymphocytic colitis 10/20/2021 Acute renal failure syndrome [...] Overview: Added automatically from request for surgery [id number] Chronic diarrhea 12/03/2020 Overview: Added automatically from request for surgery [id number] Lesion of brain 02/03/2020 Overview: Added automatically from request for surgery [id number] Hypokalemia 01/31/2020 Disorder of fluid AND/OR electrolyte 01/31/2020 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 disease 0 Cerebral edema 01/30/2020 Secondary malignant neoplasm of brain 01/30/2020 Aphasia 01/30/2020 Depressive disorder 01/30/2018 Non-small cell carcinoma of lung, TNM stage 4 Dysphagia 07/31/2016 Choking 07/31/2016 Thyroid cancer 07/31/2016 Overview: Mandatory [facility] ICD-10 2020 UPDATE Other psychological or physi pito stress, not elsewhere classified Malignant neoplasm related fatigue Abnormal gait due to muscle weakness Rhabdomyolysis Encounters Date Type Department Care Team Description 11/12/2023 Orders Only [facility] Neuro[facility] [address] [place] [address] Main [facility], 7th [place] [address] Avbovvolodymyr, Leanderuoandrae, LITHOGRAPHIC RETOUCHER APPRENTICE Secondary malignant neoplasm of brain (Primary Dx) 11/07/2023 Orders Only [facility] - Neuro Oncology [address] [place] [address] Main dg, 7th [place] [address] Saloni Man, LITHOGRAPHIC RETOUCHER APPRENTICE,COPY CUTTER Secondary malignant neoplasm of unspecified lung (Primary Dx); Other seizure; Altered mental status; 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 11/06/2023 12:06 PM CDT Anesthesia Event [facility] [address] [place] [address] Main dg, 3rd [place] [address] Nedra Oscar MD 11/04/2023 Travel 11/03/2023 11:34 PM CDT - 11/12/2023 6:03 PM CDT Hospital Encounter MAIN 12NW [address] [place] [address] Abhijit Farr MD Gao, Lucy C, MD [...] Travel 10/30/2023 Orders Only Radiation Treatment Center [facility] Main [facility], 1st [place] [address] Sammi Byrne, SUSANA Secondary malignant neoplasm of brain (Primary Dx) 10/25/2023 4:30 PM CDT POEM Appointments Per[facility] [address] [place] [address] Main [facility], 6th [place] [address] Sindi Casiano MD 10/24/2023 11:59 PM CDT Anesthesia Event [facility] [address] [place] [address] Main [facility], 6th [place] [address] Francoise Michael RN 10/16/2023 Telephone G[facility] 1515 [facility] Main [facility], 7th [place] [address] Elizabeth Morelos MA 10/08/2023 Orders Only [facility] - Neurosurgery [address] [place] [address] Main [facility], 7th [place] [address] Van Russo, LITHOGRAPHIC RETOUCHER APPRENTICE Secondary malignant neoplasm of brain (Primary Dx) 10/06/2023 Orders Only [facility] - Neuro Oncology [address] [place] [address] Main Bldg, 7th [place] [address] Carmita Castorena MD 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 (Primary Dx) 10/05/2023 12:45 PM CDT Anesthesia Event [facility] [address] [place] [address] Main Bldg, 3rd [place] [address] Aramis Nicholas MD Shaik, Ghouse B, LITHOGRAPHIC RETOUCHER APPRENTICE 10/02/2023 Travel 10/01/2023 11:17 AM CDT - 10/08/2023 5:04 PM CDT Hospital Encounter MAIN [address] [place] [address] Zuri Farr MD Taylor, MD Maikel Bean Norman, MD Parhizgar, Alireza, MD Aphasia (Primary Dx); Other encephalopathy; Adenocarcinoma, NOS of lower lobe, 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>; Urinary tract infection, not otherwise specified; Other low back pain; Malignant neoplasm of unspecified part of unspecified bronchus or lung Discharge Disposition: Home with Home-Health or Physical Therapy 10/01/2023 Travel 09/10/2023 Orders Only Abdominal Imaging [address] [place], [place] [id number] Padmini Morelos, LITHOGRAPHIC RETOUCHER APPRENTICE 09/10/2023 Orders Only Rad[facility] Treatment [facility] [address] [place] [address] Main Bldg, 1st [place] [address] Vicky Denise, LITHOGRAPHIC RETOUCHER APPRENTICE Secondary malignant neoplasm of brain (Primary Dx) 09/10/2023 Documentation [facility] [address] [place] [address] Main Bldg, 1st [place] [address] Vicky Denise, LITHOGRAPHIC RETOUCHER APPRENTICE 09/05/2023 Orders Only Thoracic Center - Medical Oncology [address] [place] [address] Main dg, 9th Floor Ele[address] [place] [id number] Dalia Weiner APRN Non-small cell carcinoma of lung, TNM stage 4 <Unspecified side> (Primary Dx) 09/04/2023 11:00 AM CDT Telemedicine [facility] - Neurosurgery [address] [place] [address] Main [facility], 7th [place] [address] Frannie Emery MD Secondary malignant neoplasm of brain (Primary Dx) 09/03/2023 11:59 PM CDT Anesthesia Event [facility] [address] [place] [address] Main [facility], 3rd Floor Elevator [address] [place] [phone] Lima Zavala MD 08/31/2023 4:49 PM CDT Anesthesia Event [facility] [address] [place] [address], 6th [place] [address] Francoise Michael RN 08/31/2023 4:30 PM CDT POEM Appointments [facility] [address] [place] [address], 6th Floor [address] [place] [phone] Sindi Casiano MD 08/29/2023 [facility] - Medical Oncology [address] [place] [address], 9th [place] [address] Lorenza Taylor, RN 08/24/2023 Case Management Case Management [address] [place] [address] Ashlyn Hernandez RN 08/23/2023 [facility] Thoracic Center - Medical Oncology [address] [place] [address], 9th [place] [address] Dalia Weiner, LITHOGRAPHIC RETOUCHER APPRENTICE Non-small cell carcinoma of lung, TNM stage 4 <Unspecified side> (Primary Dx) 08/23/2023 Case Management Case Management [address] [place], [place] [phone] Ashlyn Hernandez, RN 08/08/2023 10:12 AM CDT Anesthesia Event [facility] [address] [place] [address] Main [facility], 3rd [place] [address] Nedra Oscar MD Thomas, Cini, LITHOGRAPHIC RETOUCHER APPRENTICE,COPY CUTTER 07/31/2023 Travel 07/30/2023 8:38 PM CDT - 08/11/2023 2:13 PM CDT Hospital Encounter MAIN [address]SE [address] [place] [address] Shadia Clement MD Gao, Lucy C, MD [...] [facility]astro[facility] - Gastroenterology, Hepatology & Nutrition [address] [place] [address] Main dg, 7th [place] [address] Mounika Caballero, LITHOGRAPHIC RETOUCHER APPRENTICE 07/30/2023 Case Management Case Management [address] [place] [address] Johnie Velasco RN 07/27/2023 Orders Only Clinical Pharmacy [address] [place] [address] Main dg, 2nd [place] [address] Jonathan Mohr Carri 07/26/2023 9:54 AM CDT Anesthesia Event [facility] [address] [place] [address] Main dg, 3rd [place] [address] Elisa Reyes CRNA 07/26/2023 Orders Only [facility] - Neuro Oncology 1515 [facility], 7th [place] [address] Suzi Dias DO Seizure, not otherwise specified (Primary Dx) 07/25/2023 Travel 07/24/2023 8:53 PM CDT - 07/29/2023 5:11 PM CDT Hospital Encounter MAIN 17SE [address] [place] [address] Shadia Clement MD Gao, Lucy C, MD [...] Travel 07/24/2023 Case Management Case Management [address] [place] [address] Johnie Velasco RN 07/23/2023 10:45 AM CDT Ancillary Procedure CT Imaging 1220 [facility], 7th [place] [address] Dalia Weiner APRN Non-small cell carcinoma of lung, TNM stage 4 <Unspecified side> 07/23/2023 9:15 AM CDT - 07/23/2023 11:59 PM CDT Hospital Encounter Diagnostic [facility] [address] [place] [address] Dalia Weiner APRN Non-small cell carcinoma of lung, TNM stage 4 <Unspecified side> Discharge Disposition: Home 07/20/2023 Orders Only [facility] - Gastroenterology, Hepatology & Nutrition [address] [place] [address], 7th [place] [address] Mounika Caballero APRN Diarrhea (Primary Dx); Lymphocytic colitis 07/20/2023 Travel 07/19/2023 8:00 AM CDT Telemedicine [facility] - Gastroenterology, Hepatology & Nutrition [address] [place] [address], 7th [place] [address] Mounika Caballero APRN Lymphocytic colitis (Primary Dx); Diarrhea 07/19/2023 Prep for Surgery [facility] - Gastroenterology, Hepatology & Nutrition [address] [place] [address], 7th [place] [address] Mounika Caballero APRN Lymphocytic colitis (Primary Dx); Diarrhea; Malignant neoplasm of unspecified part of unspecified bronchus or lung 07/18/2023 Case Management Case Management [address] [place] [phone] Johnie Velasco, RN 07/17/2023 Telephone Colorectal Center - Colon and Rectal Surgery [address] [place] [address], 7th [place] [address] Chika Pastrana MA 07/17/2023 Orders Only Thoracic Center - Medical Oncology [address] [place] [address], 9th [place] [address] Dalia Weiner APRN Non-small cell carcinoma of lung, TNM stage 4 <Unspecified side> (Primary Dx) 07/16/2023 Case Management Case Management [address] [place] [address] Johnie Velasco, RN 07/12/2023 Telephone Case Management [address] [place] [address] Johnie Velasco, RASHMI 07/12/2023 Telephone Case Management [address] [place] [address] Johnie Velasco, RN 07/11/2023 Orders Only [facility] - Gastroenterology, Hepatology & Nutrition [address] [place] [address], 7th [place] [address] Mounika Caballero APRN Lymphocytic colitis (Primary Dx) 07/09/2023 Case Management Case Management [address] [place] [address] Johnie Velasco, RASHMI 07/05/2023 Orders Only Neuroradiology [address] [place] [address] Gilles Beatty MD 07/03/2023 3:02 PM CDT - 07/07/2023 6:40 PM CDT Hospital Encounter MAIN [address] [place] [address] Abhijit Farr MD Musunuru, Tejo, MD Franco [...] 07/03/2023 Telephone [facility] Center - Medical Oncology [address] [place] [address], 9th [place] [address] Ildefonso Donaldson MA 07/03/2023 Telephone [facility] - Neurosurgery 1515 [facility] Main Bldg, 7th [place] [address] Yumiko Briones RN 06/30/2023 Orders Only [facility] - Neuro Oncology [facility] Main Bldg, 7th [place] [address] Shae Cosme MD Secondary malignant neoplasm of brain (Primary Dx) 06/29/2023 2:08 PM CDT Anesthesia Event [facility] [address] [place] [address] Main Bldg, 3rd [place] [address] Asim Ontiveros DO Thomas, Nina, APRN 06/27/2023 5:31 PM CDT - 07/01/2023 6:33 PM CDT Hospital Encounter MAIN [address] [place] [address] Kalpana William MD Wechsler, Adriana, MD Yeung, Sai-Ching, MD Musunuru, Tejo, MD Etchegaray-Langly, Mikel, MD Auditory hallucination (Primary Dx); Secondary malignant neoplasm of brain; Non-small cell carcinoma of lung, TNM stage 4; Poor balance; Depressive disorder; Chronic diarrhea; Subdural hematoma <Subsequent>; Iron deficiency anemia, not otherwise specified Discharge Disposition: Home 06/27/2023 Travel 06/22/2023 Orders Only [facility]acic Center - Medical Oncology [address] [place] [address] Main dg, 9th Floor [address] [place] [phone] Dalia Weiner APRN Non-small cell carcinoma of lung, TNM stage 4 <Unspecified side> (Primary Dx); Hyperlipidemia, not otherwise specified; Hypokalemia 06/18/2023 Orders Only Thoracic [place] - Medical Oncology [address] [place] [address] Main dg, 9th [place] [address] Dalia Weiner, LITHOGRAPHIC RETOUCHER APPRENTICE Malignant neoplasm of unspecified part of unspecified bronchus or lung (Primary Dx) 06/12/2023 Telephone [facility] - Medical Oncology [address] [place] [address] Main Bldg, 9th [place] [address] Alex Bo MA 06/08/2023 12:30 PM CDT Telemedicine [facility] - Neurosurgery [facility] Main Bldg, 7th [place] [address] Mark Batista MD Ferguson, Sherise D., MD Secondary malignant neoplasm of brain 06/05/2023 Orders Only Neuroradiology [address] [place] [address] Joslyn Sy MD 06/05/2023 Orders Only Radiation Treatment Center [address] [place] [address] Main dg, 1st [place] [address] Saira Carrasquillo APRN Secondary malignant neoplasm of brain (Primary Dx) 06/04/2023 1:44 PM CDT - 06/04/2023 11:59 PM CDT Hospital Encounter [facility] Treatment Center [address] [place] [address] Main dg, 1st [place] [address] Bree Calderón MD Secondary malignant neoplasm of brain (Primary Dx) Discharge Disposition: Home 06/04/2023 11:26 AM CDT Anesthesia Event [facility] [address] [place] [address] Main Bldg, 3rd [place] [address] Darius Zelaya MD Kwok, Cindy, CRNA 06/04/2023 10:15 AM CDT - 06/04/2023 1:43 PM CDT Hospital Encounter [facility] [address] [place] [address] Main Bldg, 3rd [place] [address] Saira Carrasquillo APRN Potylchansky, Yury, MD Kwok, Cindy, CRNA Secondary malignant neoplasm of brain Discharge Disposition: Home 06/04/2023 Travel 06/01/2023 11:59 PM CDT Anesthesia Event [facility] [address] [place] [address] Main dg, 6th [place] [address] Rahel Smallwood APRN 06/01/2023 4:30 PM CDT POEM Appointments [facility] [address] [facility] Main Bldg, 6th [place] [address] Sindi Casiano MD 05/17/2023 Orders Only Thoracic Center - Medical Oncology [address] Main Bldg, 9th [place] [address] Dalia Weiner APRN Malignant neoplasm of unspecified part of unspecified bronchus or lung (Primary Dx) 05/17/2023 Orders Only [facility] Center - Medical Oncology [address] Main Bldg, 9th [place] [address] Dalia Weiner APRN Malignant neoplasm of unspecified part of unspecified bronchus or lung; Diarrhea 05/16/2023 Refill [facility] Center - Medical Oncology [address] Main Bldg, 9th [place] [address] Dalia Weiner APRN Malignant neoplasm of unspecified part of unspecified bronchus or lung; Diarrhea 05/03/2023 Documentation [facility] [address] [facility] [place] [address] Bree Calderón MD 05/02/2023 Orders Only [facility] - Medical Oncology [address] Main Bldg, 9th [place] [address] Dalia Weiner, SUSANA Non-small cell carcinoma of lung, TNM stage 4 <Unspecified side> (Primary Dx) 04/18/2023 2:40 PM BROADCAST OPERATIONS DIRECTOR - 04/18/2023 11:59 PM BROADCAST OPERATIONS DIRECTOR Hospital Encounter [facility] [address] [facility] Main Bldg, [place] [address] Sindi Casiano MD Malignant neoplasm of unspecified part of unspecified bronchus or lung Discharge Disposition: Home 04/18/2023 1:00 PM BROADCAST OPERATIONS DIRECTOR Follow-Up Thoracic Center - Medical Oncology [facility] Main Bldg, 9th [place] [address] Sindi Casiano MD Malignant neoplasm of unspecified part of unspecified bronchus or lung (Primary Dx); Non-small cell carcinoma of lung, TNM stage 4 <Unspecified side> 04/18/2023 Documentation Rehabilitation Services [facility], 1st Floor G1.[address] [place] [address] HunterZohreh Barkley, PT 04/18/2023 Orders Only Thoracic Center - Medical Oncology [address] [facility], 9th [place] [address] Rosa Almendarez, Greer Malignant neoplasm of unspecified part of unspecified bronchus or lung (Primary Dx) 04/18/2023 Travel 04/16/2023 2:05 PM BROADCAST OPERATIONS DIRECTOR Ancillary Procedure CT Imaging 1220 [facility], 7th [place] [address] Dalia Weiner, LITHOGRAPHIC RETOUCHER APPRENTICE Non-small cell carcinoma of lung, TNM stage 4 <Unspecified side> 04/12/2023 9:30 AM BROADCAST OPERATIONS DIRECTOR - 04/12/2023 11:59 PM BROADCAST OPERATIONS DIRECTOR Hospital Encounter [facility] [address] [place] [address], 1st [place] [address] Saira Carrasquillo, SUSANA Secondary malignant neoplasm of brain Discharge Disposition: Home 04/12/2023 Orders Only [facility] - Neurosurgery [facility], 7th [place] [address] Rajinder English, LITHOGRAPHIC RETOUCHER APPRENTICE Lesion of brain (Primary Dx) 04/11/2023 8:13 AM BROADCAST OPERATIONS DIRECTOR Anesthesia Event [facility] [address] [place] [address] Radiation Oncology Center Take Elevator G to [place] [address] Kenton Reich MD 04/11/2023 7:10 AM BROADCAST OPERATIONS DIRECTOR - 04/11/2023 11:40 AM BROADCAST OPERATIONS DIRECTOR Surgery [facility] [address] [place] [address] Radiation Oncology [place] Take Elevator G to [place] [address] Bree Calderón MD 4 STAR - STEREOTACTIC RADIATION [place] MANAGEMENT,CRANIAL LESION 04/11/2023 7:03 AM BROADCAST OPERATIONS DIRECTOR - 04/11/2023 5:39 PM BROADCAST OPERATIONS DIRECTOR Hospital Encounter Radiation Treatment Center 1515 [facility] Radiation Oncology Center Take Elevator G to the [place] [address] Mark Batista MD Discharge Disposition: Home 04/11/2023 Documentation Radiation Treatment Center 1515 [facility] Main [place] [address] Bree Calderón MD 04/11/2023 Documentation Radiation Treatment Center 15[address] [facility] Main [place] [address] Bree Calderón MD 04/11/2023 Documentation Radiation Treatment Center 15[address] [facility] Main [place] [address] Bree Calderón MD 04/11/2023 Travel 04/10/2023 11:00 AM BROADCAST OPERATIONS DIRECTOR - 04/10/2023 11:59 PM BROADCAST OPERATIONS DIRECTOR Hospital Encounter Radiation Treatment Center 15[address] [facility] Main Bldg, 1st [place] [address] Saira Carrasquillo APRN Foster, Avian P, RN Secondary malignant neoplasm of brain Discharge Disposition: Home 04/10/2023 Prep for Surgery [facility] - [facility]surgery [address] [facility] Main Bldg, 7th [place] [address] Rajinder English APRN 04/10/2023 Documentation [facility] - Neurosurgery [address] Main Bldg, 7th [place] [address] Marcella Hopper, LITHOGRAPHIC RETOUCHER APPRENTICE 04/10/2023 Prep for Surgery [facility] - Neurosurgery [address] Main Bldg, 7th [place] [address] Marcella Hopper, LITHOGRAPHIC RETOUCHER APPRENTICE Secondary malignant neoplasm of brain (Primary Dx) 04/09/2023 10:37 AM BROADCAST OPERATIONS DIRECTOR - 04/09/2023 11:59 PM BROADCAST OPERATIONS DIRECTOR Hospital Encounter [facility] [address] Main Bldg, [place] [address] Saira Carrasquillo APRN Secondary malignant neoplasm of brain Discharge Disposition: Home 04/09/2023 7:28 AM BROADCAST OPERATIONS DIRECTOR Anesthesia Event [facility] [address] Main Bldg, 3rd [place] [address] Darius Zelaya MD 04/09/2023 6:08 AM BROADCAST OPERATIONS DIRECTOR - 04/09/2023 10:36 AM BROADCAST OPERATIONS DIRECTOR Hospital Encounter [facility] [address] Main Bldg, 3rd [place] [address] Saira Carrasquillo APRN Mirza, Alisa, CRNA Potylchansky, Yury, MD Secondary malignant neoplasm of brain Discharge Disposition: Home 04/06/2023 11:59 PM BROADCAST OPERATIONS DIRECTOR Anesthesia Event [facility] Main Bldg, 6th [place] [address] Yamilet Gibson RN 04/06/2023 11:30 AM BROADCAST OPERATIONS DIRECTOR POEM Appointments [facility] Main Bldg, 6th [place] [address] Sindi Casiano MD 03/26/2023 Orders Only Thoracic Center - Medical Oncology [address] Main Bldg, 9th [place] [address] Dalia Weiner APRN Hypokalemia (Primary Dx) 03/02/2023 Documentation Radiation Treatment Center 1515 [facility] Main Bldg, 1st [place] [address] Curtis Welsh APRN 02/27/2023 Orders Only Neuroradiology [address] [place] [address] Tere Hawkins MD 02/27/2023 Orders Only Radiation Treatment Center [facility] Main Bldg, 1st [place] [address] Saira Carrasquillo APRN Secondary malignant neoplasm of brain (Primary Dx) 02/26/2023 2:49 PM BROADCAST OPERATIONS DIRECTOR - 02/26/2023 11:59 PM BROADCAST OPERATIONS DIRECTOR Hospital Encounter Radiation Treatment Center 15[address] [facility] Main Bldg, 1st [place] [address] Bree Calderón MD Secondary malignant neoplasm of brain Discharge Disposition: Home 02/26/2023 Travel 02/14/2023 9:23 AM BROADCAST OPERATIONS DIRECTOR Anesthesia Event Diagnostic Imaging Center [facility] Main Bldg, 3rd [place] [address] Bambi Hernandez MD 02/14/2023 8:00 AM BROADCAST OPERATIONS DIRECTOR - 02/14/2023 11:59 PM BROADCAST OPERATIONS DIRECTOR Hospital Encounter Diagnostic Imaging Center 15[address] [facility] Main Bldg, 3rd [place] [address] Jailene Crespo CRNA Oliver, Jodi Ann, MD Secondary malignant neoplasm of brain Discharge Disposition: Home 02/07/2023 11:59 PM BROADCAST OPERATIONS DIRECTOR Anesthesia Event Perioperative Evaluation [facility] Management Center [facility] Main Bldg, 6th [place] [address] Miguel Angel Riggins RN 02/07/2023 12:00 PM BROADCAST OPERATIONS DIRECTOR POEM Appointments Perioperative [facility] Management Center [address] [place] [address] Main Bldg, 6th [place] [address] Sindi Casiano MD 01/29/2023 [facility] Only Thoracic Center - Medical Oncology [facility] Main dg, 9th Floor [address] [place] [phone] Dalia Weiner APRN Non-small cell carcinoma of lung, TNM stage 4 <Unspecified side> (Primary Dx) 01/17/2023 7:50 AM CDT - 01/17/2023 11:59 PM CDT Hospital Encounter Main CT IMAGING [facility] [facility] Main Bldg, 3rd [place] [address] Dalia Weiner APRN Non-small cell carcinoma of lung, TNM stage 4 <Unspecified side> Discharge Disposition: Home 01/17/2023 7:24 AM CDT - 01/17/2023 7:49 AM CDT Hospital Encounter [facility] [address] [facility] Main Bldg, [place] [address] Dalia Weiner APRN Non-small cell carcinoma of lung, TNM stage 4 <Unspecified side> Discharge Disposition: Home 01/17/2023 Orders Only Thoracic Center - Medical Oncology [facility] Main dg, 9th [place] [address] Rosa Almendarez, PharmD after 01/12/2023 Immunizations Name Administration Dates Next Due Pfizer SARS-CoV-2 Vaccination (Purple Cap) 11/06 Surgical History Surgery Date Site/Laterality Comments THYROID SURGERY 07/14/2016 was planned for partial thyroidectomy which was aborted d/t positive LN UTERINE FIBROID EMBOLIZATION GALLBLADDER SURGERY LAPAROSCOPIC GASTRIC BANDING TUBAL LIGATION ID EGD TRANSORAL BIOPSY SINGLE/MULTIPLE 05/31/2019 Esophagus/N/A Procedure: UPPER GASTROINTESTINAL ENDOSCOPY OF ESOPHAGUS, STOMACH, AND DUODENUM WITH BIOPSY; Surgeon: Haile Whittaker MD; Location: MAIN ENDOSCOPY; Service: GASTROENTEROLOGY ID CRANIEC TREPHINE BONE FLP BRAIN TUMOR SUPRTENTOR 02/10/2020 Head/Left Procedure: LEFT TEMPORAL CRANIOTOMY FOR EXCISION OF BRAIN TUMOR; Surgeon: Frannie Emery MD; Location: MAIN OR; Service: NEUROSURGERY Medical devices from this surgery are in the Medical Devices section. ID COLONOSCOPY FLX DX W/COLLJ SPEC WHEN PFRMD 09/28/2021 N/A Procedure: DIAGNOSTIC FLEXIBLE COLONOSCOPY PROXIMAL TO SPLENIC FLEXURE; Surgeon: Annette Kang MD; Location: MAIN ENDOSCOPY; Service: GASTROENTEROLOGY; The EGD and colonoscopy showed minimal inflammation in the stomach/duodenum, but lymphocytic colitis on biopsy, which could certainly explain her symptoms of diarrhea. ID TCAT PERMANENT OCCLUSION/EMBOLIZATION PRQ ACUPRESSURE THERAPIST 06/09/2022 Bilateral Procedure: IR EMBOLIZATION ACUPRESSURE THERAPIST (INTRACRANIAL); Surgeon: Haim Mckeon MD; Location: MAIN OR; Service: INTERVENTIONAL RADIOLOGY ID STERETCTC RADIATION [place] MANAGEMENT CRANIAL LESION 04/11/2023 [...] 56 11/12/2023 3:23 PM CDT Angela Castañeda, RASHMI notified Temperature 36.2 C (97.2 F) 11/12/2023 [...] this topic Medical Devices Implanted Type Area Parent Partner Device Identifier Shelf Expiration Date Model / Serial / Lot Lap Band Implant Stomach [employer]att[employer] [id number] / [id number] / Description:Lap band--Cezar rivera [facility]ariat[employer]--2010--Dr. Edward Reed--[id number] Allergan Lap-Band--Conditional 5 up to 3T per MR Safety.com Hc Cover, Matrix Neuro Ulp Divide Hole, Ti, 17mm - [id number] Implanted:Qty: 2 on 02/10/2020 by Frannie Emery MD at [facility] Implant Left: Cranial SYNTHES [place] 04.502.0 23 / / Plate, Matix, Neuro, Ulp Ti, Box, 75bvk98sa - [id number] Implanted:Qty: 1 on 02/10/2020 by Frannie Emery MD at [facility] Implant Left: Cranial SYNTHES [place] 04.502.0 65 / / Screw Matrixneuro 4mm Self Drilling Pkg 1 - [id number] Implanted:Qty: 13 on 02/10/2020 by Frannie Emery MD at [facility] Metalware Left: Cranial SYNTHES [place] 04.503.1 04.01 / / Florian Hole Crani 17mm Low Profile - [id number] Implanted:Qty: 1 on 02/10/2020 by Frannie Emery MD at [facility] Metalware Left: Cranial SYNTHES [place] 04.503.0 23 / / Sealant Duraseal 5ml - [id number] Implanted:Qty: 1 on 02/10/2020 by Frannie Emery MD at [facility] Skin/Tissue Left: Cranial COVIDIEN 12/16/2020- / / [id number] Procedures Procedure Name Priority Date/Time Associated Diagnosis [...] CDT CT HEAD WO CONTRAST STAT 07/24/2023 9:01 PM CDT POC GLUCOSE SCREEN Routine 07/24/2023 [...] CDT MRI BRAIN W WO CONTRAST STAT 04/12/20 24 3:10 PM CDT .CBC Routine 06/29/2023 [...] brain LIPID PANEL Routine 04/18/2023 2:50 PM BROADCAST OPERATIONS DIRECTOR Malignant neoplasm of unspecified part of unspecified bronchus or lung MAGNESIUM LEVEL Routine 04/18/2023 2:50 PM BROADCAST OPERATIONS DIRECTOR Malignant neoplasm of unspecified part of unspecified bronchus or lung CREATINE KINASE Routine 04/18/2023 2:50 PM BROADCAST OPERATIONS DIRECTOR Malignant neoplasm of unspecified part of unspecified bronchus or lung COMPREHENSIVE METABOLIC PANEL Routine 04/18/2023 2:50 PM BROADCAST OPERATIONS DIRECTOR Malignant neoplasm of unspecified part of unspecified bronchus or lung CT CHEST ABDOMEN PELVIS W CONTRAST Routine 04/16/2023 5:20 PM BROADCAST OPERATIONS DIRECTOR Non-small cell carcinoma of lung, TNM stage 4 <Unspecified side> POC CREATININE Routine 04/16/2023 4:39 PM BROADCAST OPERATIONS DIRECTOR ID STERETCTC RADIATION [place] MANAGEMENT CRANIAL LESION 04/11/2023 8:03 AM BROADCAST OPERATIONS DIRECTOR Secondary malignant neoplasm of brain .CBC Routine 04/09/2023 10:59 AM BROADCAST OPERATIONS DIRECTOR Secondary malignant neoplasm of brain COMPLETE BLOOD COUNT W/ DIFFERENTIAL Routine 04/09/2023 10:59 AM BROADCAST OPERATIONS DIRECTOR Secondary malignant neoplasm of brain MRI BRAIN WITH AND WITHOUT CONTRAST - FRAMELESS GAMMA KNIFE Routine 04/09/2023 8:55 AM BROADCAST OPERATIONS DIRECTOR Secondary malignant neoplasm of brain MRI BRAIN W WO CONTRAST - ABTI Routine 02/14/2023 11:23 AM BROADCAST OPERATIONS DIRECTOR Secondary malignant neoplasm of brain POC CREATININE Routine 02/14/2023 9:01 AM BROADCAST OPERATIONS DIRECTOR CT CHEST ABDOMEN PELVIS W CONTRAST Routine [...] lung, TNM stage 4 <Unspecified side> after 01/12/2023 Results * (ABNORMAL) .CBC (11/12/2023 5:10 AM CDT) Only the most recent of49 resultswithin the time period is included. White Blood Cell 7.0 4.1 - 10.5 K/uL 11/12/2023 5:45 AM CDT [facility] Red Blood Cell 3.51(L) 3.99 - 5.46 M/uL 11/12/2023 5:45 AM CDT [facility] Hemoglobin 10.6(L) 12.2 - 15.3 g/dL 11/12/2023 5:45 AM CDT [facility] Hematocrit 32.7(L) 36.4 - 46.8 % 11/12/2023 5:45 AM CDT [facility] Mean Cell Volume 93 82 - 99 fL 11/12/2023 5:45 AM CDT [facility] Mean Cell Hemoglobin 30.2 26.6 - 33.2 pg 11/12/2023 5:45 AM CDT [facility] Mean Cell Hemoglobin Concentration 32.4 31.1 - 35.2 g/dL 11/12/2023 5:45 AM CDT [facility] RDW-SD 47.0 37.5 - 49.7 fL 11/12/2023 5:45 AM CDT [facility] Red Cell Diameter Width 13.8 11.6 - 15.5 % 11/12/2023 5:45 AM CDT [facility] Platelet 205 160 - 397 K/uL 11/12/2023 5:45 AM CDT [facility] Mean Platelet Volume 10.1 9.1 - 12.6 fL 11/12/2023 5:45 AM CDT [facility] INRBC 0.0 0.0 - 0.1 /100 WBC 11/12/2023 5:45 AM CDT [facility] Comment: The INRBC (instrument NRBC) value reflects the enumeration of nucleated red blood cells contained in a 200uL sample of whole blood analyzed by the instrument. This value may differ from the NRBC value reported in a manual differential, which is based on a 100 cell differential. Neutrophil % 55.4 43.2 - 72.7 % 11/12/2023 5:45 AM CDT [facility] Lymphocyte % 35.0 16.8 - 46.2 % 11/12/2023 5:45 AM CDT [facility] Monocyte % 7.0 5.1 - 12.5 % 11/12/2023 5:45 AM CDT [facility] Eosinophil % 1.6 0.4 - 6.3 % 11/12/2023 5:45 AM CDT [facility] Basophil % 0.1(L) 0.2 - 1.4 % 11/12/2023 5:45 AM CDT [facility] IGRE % 0.9 0.1 - 1.5 % 11/12/2023 5:45 AM CDT [facility] Comment:The IGRE% includes M etamyelocytes, Myelocytes and Promyelocytes. Neutrophil Abs 3.89 1.95 - 7.25 K/uL 11/12/2023 5:45 AM CDT [facility] Lymphocyte Abs 2.45 1.01 - 3.24 K/uL 11/12/2023 5:45 AM CDT [facility] Monocyte Abs 0.49 0.24 - 0.85 K/uL 11/12/2023 5:45 AM CDT [facility] Eosinophil Abs 0.11 0.02 - 0.50 K/uL 11/12/2023 5:45 AM CDT [facility] Basophil Abs 0.01(L) 0.02 - 0.09 K/uL 11/12/2023 5:45 AM CDT [facility] IG Abs 0.06 0.01 - 0.12 K/uL 11/12/2023 5:45 AM CDT [facility] Blood Peripheral blood specimen / Unknown Venipuncture / Unknown 11/12/2023 5:10 AM CDT 11/12/2023 5:38 AM CDT Colby Malloy MD LAB BLOOD ORDERABLES [facility] Unless otherwise noted, all lab tests performed by: Division of Pathology and Laboratory Medicine [address] [place] [address] [place] [address] * (ABNORMAL) Comprehensive Metabolic Panel (11/12/2023 5:10 AM CDT) Only the most recent of32 resultswithin the time period is included. Bilirubin Total <0.3 0.0 - 1.2 mg/dL 11/12/2023 6:15 AM CDT [facility] Comment:Indocyanine Green (I CG) may cause falsely elevated bilirubin results. Total and direct bilirubin must not be measured from samples containing indocyanine green. False elevation of total bilirubin can be seen in patients with IgG concentrations above 28 g/L. eGFR 83 >=60 mL/min/1. 73 sq. m 11/12/2023 6:15 AM CDT [facility] Comment: The eGFRcr is calculated with [...] - 8.3 gm/dL 11/12/2023 6:15 AM CDT [facility] Calcium Level Total 8.2 8.2 - 10.2 mg/dL 11/12/2023 6:15 AM CDT [facility] Alkaline Phosphatase 75 35 - 104 U/L 11/12/2023 6:15 AM CDT [facility] Albumin Level 3.3(L) 3.5 - 5.2 gm/dL 11/12/2023 6:15 AM CDT [facility] AST 8 <=32 U/L 11/12/2023 6:15 AM CDT [facility] ALT 10 <=33 U/L 11/12/2023 6:15 AM CDT [facility] Sodium Level 143 136 - 145 mmol/L 11/12/2023 6:15 AM CDT [facility] Potassium Level 4.0 3.4 - 4.5 mmol/L 11/12/2023 6:15 AM CDT [facility] Chloride 106 98 - 107 mmol/L 11/12/2023 6:15 AM CDT [facility] CO2 27 22 - 29 mmol/L 11/12/2023 6:15 AM CDT [facility] Anion Gap 10 4 - 14 mmol/L 11/12/2023 6:15 AM CDT [facility] Creatinine 0.85 0.51 - 0.95 mg/dL 11/12/2023 6:15 AM CDT [facility] BUN 22 6 - 23 mg/dL 11/12/2023 6:15 AM CDT [facility] Glucose Level 79 70 - 99 mg/dL 11/12/2023 6:15 AM CDT [facility] Comment: Effective 10/13/15, the glucose reference intervals have been updated based on [place] Citizen Diabetes Association guidelines (Standards of Medical Care [...] CDT Colby Malloy MD LAB BLOOD ORDERABLES [facility] Unless otherwise noted, all lab tests performed by: Division of Pathology and Laboratory Medicine [address] [place] [id number] * Phosphorus Level (11/12/2023 5:10 AM CDT) Only the most recent of43 resultswithin the time period is included. Phosphorus Level 3.9 2.5 - 4.5 mg/dL 11/12/2023 6:15 AM CDT [facility] Blood Peripheral blood specimen / Unknown Venipuncture / Unknown 11/12/2023 5:10 AM CDT 11/12/2023 5:38 AM CDT Colby Malloy MD LAB BLOOD ORDERABLES [facility] Unless otherwise noted, all lab tests performed by: Division of Pathology and Laboratory Medicine [address] [place] [id number] * Magnesium Level (11/12/2023 5:10 AM CDT) Only the most recent of44 resultswithin the time period is included. Magnesium Level 2.2 1.6 - 2.6 mg/dL 11/12/2023 6:15 AM CDT [facility] Blood Peripheral blood specimen / Unknown Venipuncture / Unknown 11/12/2023 5:10 AM CDT 11/12/2023 5:38 AM CDT Colby Malloy MD LAB BLOOD ORDERABLES [facility] Unless otherwise noted, all lab tests performed by: Division of Pathology and Laboratory Medicine [address] [place] [address] * Type and Screen (11/11/2023 5:30 AM CDT) Only the most recent of4 resultswithin the time period is included. ABORh A POS 11/11/2023 5:30 AM CDT [facility] ABSC Negative 11/11/2023 5:30 AM CDT [facility] Clot Expiration 2023 23:59 11/11/2023 5:30 AM CDT [facility] Historical Record Check Complete 11/11/2023 5:30 AM CDT [facility] Blood Peripheral blood specimen / Unknown Venipuncture / Unknown 11/11/2023 5:30 AM CDT 11/11/2023 5:44 AM CDT Colby Malloy MD BLOOD BANK TEST DOTTIE SESAY [facility] [address] [facility] [address] [place] [address] * (ABNORMAL) Differential (11/09/2023 4:04 AM CDT) Only the most recent of6 resultswithin the time period is included. Total Cells 100 11/09/2023 9:30 AM CDT [facility] Manual Neutrophil % 45.0 43.2 - 72.7 % 11/09/2023 9:30 AM CDT [facility] Comment:The Neutrophil count includes Bands. Manual Lymphocyte % 46.0 16.8 - 46.2 % 11/09/2023 9:30 AM CDT [facility] Manual Monocyte % 7.0 5.1 - 12.5 % 11/09/2023 9:30 AM CDT [facility] Manual Eosinophil % 1.0 0.4 - 6.3 % 11/09/2023 9:30 AM CDT [facility] Metamyelocyte % 1.0(H) <=0.0 % 9:30 AM CDT [facility] Comment:The Metamyelocyte co unt includes Myelocytes. Manual Neutrophil Abs 2.84 1.95 - 7.25 K/uL 11/09/2023 9:30 AM CDT [facility] Manual Lymphocyte Abs 2.90 1.01 - 3.24 K/uL 11/09/2023 9:30 AM CDT [facility] Manual Monocyte Abs 0.44 0.24 - 0.85 K/uL 11/09/2023 9:30 AM CDT [facility] Manual Eosinophil Abs 0.06 0.02 - 0.50 K/uL 11/09/2023 9:30 AM CDT [facility] RBC Morphology PRESENT 11/09/2023 9:30 AM CDT [facility] PLT Morph Normal Normal 11/09/2023 9:30 AM CDT [facility] Anisocytosis Present(A) (none) 11/09/2023 9:30 AM CDT [facility] Macrocyte Present(A) (none) 11/09/2023 9:30 AM CDT [facility] Smudge Cells Present(A) (none) 11/09/2023 9:30 AM CDT [facility] Slide Comment SEE NOTE 11/09/2023 9:30 AM CDT [facility] Comment:Differential perform ed on Albumin prep. Blood Peripheral blood specimen / Unknown Venipuncture / Unknown 11/09/2023 4:04 AM CDT 11/09/2023 4:30 AM CDT Colby Malloy MD LAB BLOOD ORDERABLES [facility] Unless otherwise noted, all lab tests performed by: Division of Pathology and Laboratory Medicine [address] [place] [id number] * MRI CERVICAL THORACIC LUMBAR SPINE W [...] unexpected and potentially actionable. Colby Malloy MD [facility] MRI ORDERABLES * MRI Brain with and [...] - 51 mcmol/L 11/05/2023 10:24 AM CDT [facility] Blood Peripheral blood specimen / Unknown Venipuncture / Unknown 11/05/2023 9:28 AM CDT 11/05/2023 9:31 AM CDT Colby Malloy MD LAB BLOOD ORDERABLES [facility] Unless otherwise noted, all lab tests performed by: Division of Pathology and Laboratory Medicine [address] [place] [id number] * (ABNORMAL) Vitamin B1 Level (11/05/2023 8:31 AM CDT) Thiamin(Wh Bld)-[place] 304(H) 70 - 180 nmol/L 11/09/2023 12:35 AM CDT [facility] Comment: ADDITIONAL INFORMATION This test was developed and its performance characteristics determined by [facility] in a manner consistent with CLIA requirements. This test has not been cleared or approved by the U.S. Food and Drug Administration. Test Performed by: [facility] - [address] [address] Tank Car Cleaner: Jocelyne Gifford Ph.D.; CLIA# [id number] Blood Peripheral blood specimen / Unknown Venipuncture / Unknown 11/05/2023 8:31 AM CDT 11/05/2023 8:42 AM CDT Colby Malloy MD LAB BLOOD ORDERABLES [facility] * Folate, RBC (11/05/2023 8:27 AM CDT) Pathologist [facility] Folate, RBC 673 >280 ng/mL RBC 11/06/2023 4:41 PM CDT [facility] Blood Peripheral blood specimen / Unknown Venipuncture / Unknown 11/05/2023 8:27 AM CDT 11/05/2023 8:42 AM CDT Narrative [facility] - 11/06/2023 4:41 PM CDT Performing Organization Information: [facility] [address] [place] [id number] Negar Gurrola Colby Malloy MD LAB BLOOD ORDERABLES Performing Organization Address [facility] [address]/ZIP Co de Phone Number [facility] * Vitamin B6 Level (11/05/2023 8:27 AM CDT) PALP-[place] 6 5 - 50 mcg/L 11/12/2023 3:33 AM CDT [facility] Comment: ADDITIONAL INFORMATION This test was developed and its performance characteristics determined by [facility] in a manner consistent with CLIA requirements. This test has not been cleared or approved by the U.S. Food and Drug Administration. Pyridoxic Acid (PA)-[place] 17 3 - 30 mcg/L 11/12/2023 3:33 AM CDT [facility] Comment: ADDITIONAL INFORMATION This test was developed and its performance characteristics determined by [facility] in a manner consistent with CLIA requirements. This test has not been cleared or approved by the U.S. Food and Drug Administration. Test Performed by: [facility] - [address] [address] Tank Car Cleaner: Jocelyne Gifford Ph.D.; CLIA# [id number] Blood Peripheral blood specimen / Unknown Venipuncture / Unknown 11/05/2023 8:27 AM CDT 11/05/2023 8:42 AM CDT Colby Malloy MD LAB BLOOD ORDERABLES [facility] * VBG (11/05/2023 8:27 AM CDT) Only the most recent of2 resultswithin the time period is included. Pathologist [facility] pH Venous 7.40 7.32 - 7.43 11/05/2023 8:45 AM CDT [facility] P CO2 Venous 43.3 41.0 - 51.0 mmHg 11/05/2023 8:45 AM CDT [facility] P O2 Venous 35 mmHg 11/05/2023 8:45 AM CDT [facility] Bicarbonate Venous 27 21 - 28 mmol/L 11/05/2023 8:45 AM CDT [facility] Base Excess Venous 1 -2 - 3 mmol/L 11/05/2023 8:45 AM CDT [facility] Oxygen Saturation Venous 64 % 11/05/2023 8:45 AM CDT [facility] Oxygen FLOW Rate/ FiO2 0 % 11/05/2023 8:45 AM CDT [facility] O2 Therapy Room air 11/05/2023 8:45 AM CDT [facility] Blood Peripheral blood specimen / Unknown Venipuncture / Unknown 11/05/2023 8:27 AM CDT 11/05/2023 8:42 AM CDT Colby Malloy MD LAB BLOOD ORDERABLES [facility] Unless otherwise noted, all lab tests performed by: Division of Pathology and Laboratory Medicine [address] [place] [address] [place] [address] * Methylmalonic Acid Quant, Serum (11/05/2023 8:26 AM CDT) Pathologist [facility] MMA Quant-[place] 0.23 <=0.40 nmol/mL 11/08/2023 10:57 AM CDT [facility] Comment: ADDITIONAL INFORMATION This test was developed and its performance characteristics determined by [facility] in a manner consistent with CLIA requirements. This test has not been cleared or approved by the U.S. Food and Drug Administration. Test Performed by: [address] [address] Tank Car Cleaner: Jocelyne Gifford Ph.D.; CLIA# [id number] Blood Peripheral blood specimen / Unknown Venipuncture / Unknown 11/05/2023 8:26 AM CDT 11/05/2023 8:42 AM CDT Colby Malloy MD LAB BLOOD ORDERABLES Performing Organization Address City/[facility] [address]/ZIP Co de Phone Number [facility] * (ABNORMAL) Vitamin D 25OH (11/05/2023 8:26 AM CDT) Pathologist [facility] Vitamin D 25 OH 11(L) 30 - 100 ng/mL 11/05/2023 9:43 AM CDT [facility] Blood Peripheral blood specimen / Unknown Venipuncture / Unknown 11/05/2023 8:26 AM CDT 11/05/2023 8:42 AM CDT Narrative [facility] - 11/05/2023 9:43 AM CDT Reference Range: Deficiency: <=20 ng/mL Insufficiency: 21-29 ng/mL Sufficiency: 30-100 ng/mL Potential toxicity: >100 ng/mL Colby Malloy MD LAB BLOOD ORDERABLES [facility] Unless otherwise noted, all lab tests performed by: Division of Pathology and Laboratory Medicine [address] [place] [address], [place] [address] * Vitamin E Level (11/05/2023 8:26 AM CDT) Pathologist [facility] A-Tocopherol, Vit E-[place] 8.5 5.5 - 17.0 mg/L 11/07/2023 3:38 PM CDT [facility] Comment: ADDITIONAL INFORMATION This test was developed and its performance characteristics determined by [facility] in a manner consistent with CLIA requirements. This test has not been cleared or approved by the U.S. Food and Drug Administration. Test Performed by: [facility] [address] [place] [address] Tank Car Cleaner: Jocelyne Gifford Ph.D.; CLIA# [id number] Blood Peripheral blood specimen / Unknown Venipuncture / Unknown 11/05/2023 8:26 AM CDT 11/05/2023 8:42 AM CDT Colby Malloy MD LAB BLOOD ORDERABLES [facility] * Homocysteine Total (11/05/2023 8:26 AM CDT) Pathologist [facility] Homocysteine Total 11.4 <=15.0 mcmol/L 11/05/2023 9:17 AM CDT [facility] Blood Peripheral blood specimen / Unknown Venipuncture / Unknown 11/05/2023 8:26 AM CDT 11/05/2023 8:43 AM CDT Narrative [facility] - 11/05/2023 9:17 AM CDT Reference range established based on adult population Colby Malloy MD LAB BLOOD ORDERABLES [facility] Unless otherwise noted, all lab tests performed by: Division of Pathology and Laboratory Medicine [address] [place] [id number] * Vitamin B12 Level (11/05/2023 8:26 AM CDT) Pathologist [facility] Vitamin B12 Level 269 232 - 1,245 pg/mL 11/05/2023 9:24 AM CDT [facility] Is patient fasting? Yes 11/05/2023 9:24 AM CDT [facility] Blood Peripheral blood specimen / Unknown Venipuncture / Unknown 11/05/2023 8:26 AM CDT 11/05/2023 8:42 AM CDT Narrative [facility] - 11/05/2023 9:24 AM CDT Reference range established based on adult population. Colby Malloy MD LAB BLOOD ORDERABLES [facility] Unless otherwise noted, all lab tests performed by: Division of Pathology and Laboratory Medicine [address] [place] [phone] * Copper Level (11/05/2023 8:25 AM CDT) Pathologist [facility] Copper, S 152 77 - 206 mcg/dL 11/07/2023 11:04 AM CDT [facility] Comment: ADDITIONAL INFORMATION This test was developed and its performance characteristics determined by [facility] in a manner consistent with CLIA requirements. This test has not been cleared or approved by the U.S. Food and Drug Administration. Test Performed by: [facility] - [address] [address] Tank Car Cleaner: Jocelyne Gifford Ph.D.; CLIA# [id number] Blood Peripheral blood specimen / Unknown Venipuncture / Unknown 11/05/2023 8:25 AM CDT 11/05/2023 8:42 AM CDT Colby Malloy MD LAB BLOOD ORDERABLES Performing Organization Address City/[facility] [address]/ZIP Co de Phone Number [facility] * Folate Level (11/05/2023 8:25 AM CDT) Pathologist [facility] Folate Level 12.2 4.8 - 24.2 ng/mL 11/05/2023 9:24 AM CDT [facility] Is patient fasting? Yes 11/05/2023 9:24 AM CDT [facility] Blood Peripheral blood specimen / Unknown Venipuncture / Unknown 11/05/2023 8:25 AM CDT 11/05/2023 8:42 AM CDT Narrative [facility] - 11/05/2023 9:24 AM CDT Reference range established based on adult population. Colby Malloy MD LAB BLOOD ORDERABLES [facility] Unless otherwise noted, all lab tests performed by: Division of Pathology and Laboratory Medicine [facility] [place] [address] * XR Abdomen 1 View Portable (11/04/2023 [...] unremarkable. IMPRESSION: No acute abnormality seen. Colby Malloy IMG DIAGNOSTIC IMAGI NG ORDERABLES * (ABNORMAL) Urinalysis Microscopic Exam (11/04/2023 5:56 AM CDT) Only the most recent of6 resultswithin the time period is included. Urine Mucous Not Seen Not Seen, Trace /HPF 11/04/2023 6:42 AM CDT [facility] Urine Bacteria 1+(A) Not Seen /HPF 11/04/2023 6:42 AM CDT [facility] Urine Squamous Epithelial Cells OCC Not Seen, OCC, Rare /HPF 11/04/2023 6:42 AM CDT [facility] Urine WBC 25(H) <=2 /HPF 11/04/2023 6:42 AM CDT [facility] Urine RBC 15(H) <=2 /HPF 11/04/2023 6:42 AM CDT [facility] Urine Renal Epithelial Cells <1(H) <=0 /HPF 11/04/2023 6:42 AM CDT [facility] Urine Hyaline Casts 1 <=2 /LPF 11/04/2023 6:42 AM CDT [facility] Urine Voided urine specimen / Unknown Non-blood Collection / Unknown 11/04/2023 5:56 AM CDT 11/04/2023 6:30 AM CDT Abhijit Frar MD LAB BLOOD ORDERABLES [facility] Unless otherwise noted, all lab tests performed by: Division of Pathology and Laboratory Medicine [address] [place] [phone] * (ABNORMAL) Urinalysis w/Microscopic if Indicated (11/04/2023 5:56 AM CDT) Only the most recent of6 resultswithin the time period is included. Urine Appearance Hazy(A) Clear 11/04/19 24 6:37 AM CDT [facility] Urine Color Yellow Colorless, Straw, Yellow, Dark Yellow, Straw-Yello w 11/04/2023 6:37 AM CDT [facility] Urine Specific [place] 1.038(H) 1.003 - 1.035 11/04/2023 6:37 AM CDT [facility] Urine pH 5.5 5.0 - 8.0 11/04/2023 6:37 AM CDT [facility] Urine Glucose Negative Negative mg/dL 11/04/2023 6:37 AM CDT [facility] Urine Ketones 40(A) Negative mg/dL 11/04/2023 6:37 AM CDT [facility] Urine Blood Small(A) Negative 11/04/2023 6:37 AM CDT [facility] Urine Protein 30(A) Negative mg/dL 11/04/2023 6:37 AM CDT [facility] Urine Bilirubin +1(A) Negative 6:37 AM CDT [facility] Urine Urobilinogen +1(A) Negative 11/04/2023 6:37 AM CDT [facility] Urine Nitrite Negative Negative 11/04/2023 6:37 AM CDT [facility] Urine Leukocyte Esterase Moderate(A) Negative 11/04/2023 6:37 AM CDT [facility] Urine Voided urine specimen / Unknown Non-blood Collection / Unknown 11/04/2023 5:56 AM CDT 11/04/2023 6:30 AM CDT Narrative [facility] - 11/04/2023 6:37 AM CDT Some reporting parameters within the Urinalysis test have changed due to the implementation of new instrumentation in the Main [employer], allowing greater sensitivity of measurement. Urinalysis results reported by the [facility] using existing instrumentation, as well as Urinalysis testing performed manually or by back-up methodology at the main [facility], will remain relatively unchanged. New reporting parameters and units will now be reported for all campuses. Abhijit Farr MD URINE ORDERABLES [facility] Unless otherwise noted, all lab tests performed by: Division of Pathology and Laboratory Medicine [address] [place] [address] [phone] * (ABNORMAL) Urine Culture (11/04/2023 5:56 AM CDT) Only the most recent of7 resultswithin the time period is included. Urine Culture 10-50,000 CFU/mL Escherichia coli(A) 11/06/2023 8:07 AM CDT [facility] Urine Voided urine specimen / Unknown Non-blood Collection / Unknown 11/04/2023 5:56 AM CDT 11/04/2023 6:30 AM CDT Narrative [facility] - 11/06/2023 8:07 AM CDT Culture [...] mcg/mL: Susceptible Abhijit Farr MD MICROBIOLOGY - GENER AL ORDERABLES [facility] Unless otherwise noted, all lab tests performed by: Division of Pathology and Laboratory Medicine [address] [place] [address] [phone] * POC Glucose Screen - Fingerstick (11/04/2023 12:26 AM CDT) Only the most recent of9 resultswithin the time period is included. Glucose Screen 77 70 - 99 mg/dL 11/04/2023 12:28 AM CDT [facility] POC Sample Type Capillary 11/04/2023 12:28 AM CDT [facility] Blood 11/04/2023 12:2 6 AM CDT 11/04/2023 12:28 AM CDT Narrative [facility] - 11/04/2023 12:28 AM CDT Capillary [...] Farr MD POCT ORDERABLES - DE VICE [facility] Unless otherwise noted, all lab tests performed by: Division of Pathology and Laboratory Medicine [address] [place] [phone] * CT Head without Contrast (11/04/2023 12:12 [...] 7.310 - 7.410 11/04/2023 12:10 AM CDT [facility] POC VB pCO2. 41.5 41.0 - 51.0 mmHg 11/04/2023 12:10 AM CDT [facility] POC VB pO2. 25 mmHg 11/04/2023 12:10 AM CDT [facility] POC VB TCO2 26 24 - 29 mmol/L 11/04/2023 12:10 AM CDT [facility] POC VB Bicarb 24.4 23.0 - 28.0 mmol/L 11/04/2023 12:10 AM CDT [facility] POC VB Base Excess -1 -2 - 3 mmol/L 11/04/2023 12:10 AM CDT [facility] POC VB O2 Sat 45 % 11/04/2023 12:10 AM CDT [facility] POC VB LAC 0.91 0.90 - 1.70 mmol/L 11/04/2023 12:10 AM CDT [facility] POC FiO2 11/04/2023 12:10 AM CDT [facility] POC Sample Type Venous 11/04/2023 12:10 AM T [facility] Blood 11/04/2023 12:0 3 AM CDT 11/04/2023 12:10 AM CDT Narrative [facility] - 11/04/2023 12:10 AM CDT Method [...] Farr MD POCT ORDERABLES - DE VICE [facility] Unless otherwise noted, all lab tests performed by: Division of Pathology and Laboratory Medicine [address] [place] [phone] * Fractionated Bilirubin (11/03/2023 11:47 PM CDT) Only the most recent of4 resultswithin the time period is included. Bilirubin Direct 11/04/19 12:21 AM CDT [facility] Comment: Direct and indirect bilirubin will not be reported when Total bilirubin result is <0.3 mg/dL Indocyanine Green (ICG) may cause falsely elevated bilirubin results. Total and direct bilirubin must not be measured from samples containing indocyanine green. Bilirubin Indirect 2023 12:21 AM CDT [facility] Comment:Direct and indirect bilirubin will not be reported when Total bilirubin result is <0.3 mg/dL Bilirubin Total <0.3 0.0 - 1.2 mg/dL 11/04/2023 12:21 AM CDT [facility] Comment: Direct and indirect bilirubin will [...] CDT Abhijit Farr MD LAB BLOOD ORDERABLES [facility] Unless otherwise noted, all lab tests performed by: Division of Pathology and Laboratory Medicine [address] [place] [address] [phone] * aPTT (11/03/2023 11:47 PM CDT) Only the most recent of4 resultswithin the time period is included. Activated PTT 28.7 24.1 - 35.5 second(s) 11/04/2023 12:15 AM CDT [facility] Blood Peripheral blood specimen / Unknown Venipuncture / Unknown 11/03/2023 11:47 PM CDT 11/03/2023 11:50 PM CDT Abhijit Farr MD LAB BLOOD ORDERABLES [facility] Unless otherwise noted, all lab tests performed by: Division of Pathology and Laboratory Medicine [address] [place] [address] [phone] * Prothrombin Time with INR (11/03/2023 11:47 PM CDT) Only the most recent of4 resultswithin the time period is included. Prothrombin Time 13.5 11.9 - 14.5 second(s) 11/04/2023 12:15 AM CDT [facility] International Normalization Ratio 1.04 0.87 - 1.12 11/04/2023 12:15 AM CDT [facility] Blood Peripheral blood specimen / Unknown Venipuncture / Unknown 11/03/2023 11:47 PM CDT 11/03/2023 11:50 PM CDT Abhijit Farr MD LAB BLOOD ORDERABLES Performing Organization Address City/[facility] [address]/ZIP Co de Phone Number [facility] Unless otherwise noted, all lab tests performed by: Division of Pathology and Laboratory Medicine [address] [place] [address] [phone] * TSH (11/03/2023 11:47 PM CDT) Thyroid Stimulating Hormone 3.37 0.27 - 4.20 mcunit/mL 11/04/2023 8:57 AM CDT [facility] Blood Peripheral blood specimen / Unknown Venipuncture / Unknown 11/03/2023 11:47 PM CDT 11/03/2023 11:50 PM CDT Colby Malloy MD LAB BLOOD ORDERABLES [facility] Unless otherwise noted, all lab tests performed by: Division of Pathology and Laboratory Medicine [address] [place] [address] [phone] * Free T4 (11/03/2023 11:47 PM CDT) T4 (Thyroxine) Free 1.20 0.92 - 1.68 ng/dL 11/04/2023 8:57 AM CDT [facility] Blood Peripheral blood specimen / Unknown Venipuncture / Unknown 11/03/2023 11:47 PM CDT 11/03/2023 11:50 PM CDT Colby Malloy MD LAB BLOOD ORDERABLES [facility] Unless otherwise noted, all lab tests performed by: Division of Pathology and Laboratory Medicine [address] [place] [address] [phone] * (ABNORMAL) LDH (11/03/2023 11:47 PM CDT) Only the most recent of4 resultswithin the time period is included. Pathologist [facility] LDH 216(H) 135 - 214 U/L 11/04/2023 12:21 AM CDT [facility] Blood Peripheral blood specimen / Unknown Venipuncture / Unknown 11/03/2023 11:47 PM CDT 11/03/2023 11:50 PM CDT Narrative [facility] - 11/04/2023 12:21 AM CDT Results greater than 1651 U/L may not be reliable due to matrix effect with extended dilution as it exceeds the supervisor chassis assembly's recommended limit. Caution should be exercised when interpreting such values and done in conjunction with clinical context. Abhijit Farr MD LAB BLOOD ORDERABLES [facility] Unless otherwise noted, all lab tests performed by: Division of Pathology and Laboratory Medicine [address] [place] [address] [phone] * MRI Brain with and without Contrast (10/05/2023 12:40 PM CDT) Only the most recent of4 [...] agree with the final report. Tk Stevens LITHOGRAPHIC RETOUCHER APPRENTICE [facility] ORDERABLES * (ABNORMAL) Urinalysis with Microscopic (10/01/2023 8:30 PM CDT) Urine Appearance Clear Clear 10/01/19 8:53 PM CDT [facility] Comment:This result was prev iously suppressed from the chart. Urine Color Straw Colorless, Straw, Yellow, Dark Yellow, Straw-Yellow 10/01/2023 8:53 PM CDT [facility] Comment:This result was prev iously suppressed from the chart. Urine Specific [place] 1.021 1.003 - 1.035 10/01/2023 8:53 PM CDT [facility] Comment:This result was prev iously suppressed from the chart. Urine pH 6.5 5.0 - 8.0 10/01/2023 8:53 PM CDT [facility] Comment:This result was prev iously suppressed from the chart. Urine Glucose Negative Negative mg/dL 10/01/2023 8:53 PM CDT [facility] Comment:This result was prev iously suppressed from the chart. Urine Ketones Negative Negative mg/dL 10/01/2023 8:53 PM CDT [facility] Comment:This result was prev iously suppressed from the chart. Urine Blood Small(A) Negative 10/01/2023 8:53 PM CDT [facility] Comment:This result was prev iously suppressed from the chart. Urine Protein Negative Negative mg/dL 10/01/2023 8:53 PM CDT [facility] Comment:This result was prev iously suppressed from the chart. Urine Bilirubin Negative Negative 8:53 PM CDT [facility] Urine Urobilinogen Negative Negative 10/01/2023 8:53 PM CDT [facility] Urine Nitrite Negative Negative 10/01/2023 8:53 PM CDT [facility] Comment:This result was prev iously suppressed from the chart. Urine Leukocyte Esterase Negative Negative 10/01/2023 8:53 PM CDT [facility] Comment:This result was prev iously suppressed from the chart. Urine WBC <1 <=2 /HPF 10/01/2023 8:53 PM CDT [facility] Urine RBC 1 <=2 /HPF 10/01/2023 8:53 PM CDT [facility] Urine Mucous Not Seen Not Seen, Trace /HPF 10/01/2023 8:53 PM CDT [facility] Comment:This result was prev iously suppressed from the chart. Urine Bacteria Not Seen Not Seen /HPF 10/01/2023 8:53 PM CDT [facility] Comment:This result was prev iously suppressed from the chart. Urine Squamous Epithelial Cells OCC Not Seen, OCC, Rare /HPF 10/01/2023 8:53 PM CDT [facility] Comment:This result was prev iously suppressed from the chart. Urine (Urine Clean Catch) Non-blood Collection / Unknown 10/01/2023 8:30 PM CDT 10/01/2023 8:33 PM CDT Narrative [facility] - 10/01/2023 8:53 PM CDT Some reporting parameters within the Urinalysis test have changed due to the implementation of new instrumentation in the Main [employer], allowing greater sensitivity of measurement. Urinalysis results reported by the [facility] using existing instrumentation, as well as Urinalysis testing performed manually or by back-up methodology at the main campus, will remain relatively unchanged. New reporting parameters and units will now be reported for all campuses. Erasmo Gamez MD URINE ORDERABLES [facility] Unless otherwise noted, all lab tests performed by: Division of Pathology and Laboratory Medicine [address] [place] [address] [phone] * Blood Culture (10/01/2023 11:58 AM CDT) Only the most recent of6 resultswithin the time period is included. Blood Culture No Growth. 10/06/2023 1:01 PM CDT [facility] Blood Peripheral blood specimen / Unknown Venipuncture / Unknown 10/01/2023 11:58 AM CDT 10/01/2023 12:05 PM CDT Cathy Ramirez MD MICROBIOLOGY - GENE RAL ORDERABLES [facility] Unless otherwise noted, all lab tests performed by: Division of Pathology and Laboratory Medicine [address] [place] [address] [phone] * (ABNORMAL) Basic Metabolic Panel- Total Calcium (08/11/2023 5:02 AM CDT) Only the most recent of17 resultswithin the time period is included. eGFR 103 >=60 mL/min/1.7 3 sq. m 08/11/2023 5:40 AM CDT [facility] Comment: The eGFRcr is calculated with [...] - 10.2 mg/dL 08/11/2023 5:40 AM CDT [facility] Sodium Level 141 136 - 145 mmol/L 08/11/2023 5:40 AM CDT [facility] Potassium Level 3.8 3.4 - 4.5 mmol/L 08/11/2023 5:40 AM CDT [facility] Chloride 106 98 - 107 mmol/L 08/11/2023 5:40 AM CDT [facility] CO2 24 22 - 29 mmol/L 08/11/2023 5:40 AM CDT [facility] Anion Gap 11 4 - 14 mmol/L 08/11/2023 5:40 AM CDT [facility] Creatinine 0.71 0.51 - 0.95 mg/dL 08/11/2023 5:40 AM CDT [facility] BUN 11 6 - 23 mg/dL 08/11/2023 5:40 AM CDT [facility] Glucose Level 92 70 - 99 mg/dL 08/11/2023 5:40 AM CDT [facility] Comment: Effective 10/13/15, the glucose reference intervals have been updated based on [place] [employer] Diabetes [employer] guidelines (Standards of Medical Care [...] CDT Asya Egan MD LAB BLOOD ORDERABLES [facility] Unless otherwise noted, all lab tests performed by: Division of Pathology and Laboratory Medicine [address] [place] [address] [phone] * Gastrointestinal Multiplex PCR Panel (08/04/2023 3:24 PM CDT) Only the most recent of3 resultswithin the time period is included. Campylobacter Not Detected Not Detected 08/04/2023 6:07 PM CDT [facility] Plesiomonas shigelloides Not Detected Not Detected 08/04/2023 6:07 PM CDT [facility] Salmonella Not Detected Not Detected 08/04/2023 6:07 PM CDT [facility] Vibrio Not Detected Not Detected 08/04/2023 6:07 PM CDT [facility] Vibrio cholerae Not Detected Not Detected 08/04/2023 6:07 PM CDT [facility] Yersinia enterocolitica Not Detected Not Detected 08/04/2023 6:07 PM CDT [facility] Enteroaggregative E. coli (EAEC) Not Detected Not Detected 08/04/2023 6:07 PM CDT [facility] Enteropathogenic E. coli (EPEC) Not Detected Not Detected 08/04/2023 6:07 PM CDT [facility] Enterotoxigenic E. coli (ETEC) LT/ST Not Detected Not Detected 08/04/2023 6:07 PM CDT [facility] Shiga-like toxin-producing E. coli (STEC) Stx1/Stx2 Not Detected Not Detected 08/04/2023 6:07 PM CDT [facility] E. coli O157 N/A Not Detected 08/04/2023 6:07 PM CDT [facility] Shigella/Enteroinvas lyndsay E. coli (EIEC) Not Detected Not Detected 08/04/2023 6:07 PM CDT [facility] Cryptosporidium Not Detected Not Detected 08/04/2023 6:07 PM CDT [facility] Cyclospora cayetanensis Not Detected Not Detected 08/04/2023 6:07 PM CDT [facility] Entamoeba histolytica Not Detected Not Detected 08/04/2023 6:07 PM CDT [facility] Giardia lamblia Not Detected Not Detected 08/04/2023 6:07 PM CDT [facility] Adenovirus F40/41 Not Detected Not Detected 08/04/2023 6:07 PM CDT [facility] Astrovirus Not Detected Not Detected 08/04/2023 6:07 PM CDT [facility] Norovirus GI/GII Not Detected Not Detected 08/04/2023 6:07 PM CDT [facility] Rotavirus A Not Detected Not Detected 08/04/2023 6:07 PM CDT [facility] Sapovirus (I, II, IV, V) Not Detected Not Detected 08/04/2023 6:07 PM CDT [facility] C. difficile Refer to separate C. difficile DNA Detection assay for results. 08/04/2023 6:07 PM CDT [facility] Stool Rectum structure / Unknown Non-blood Collection / Unknown 08/04/2023 3:24 PM CDT 08/04/2023 4:27 PM CDT Narrative [facility] - 08/04/2023 6:07 PM CDT The assay is a qualitative multiplex PCR assay to aid in the diagnosis of gastrointestinal infection through simultaneous qualitative detection and identification of multiple GI pathogens in diarrheal specimens collected in [employer] transport media obtained from individuals suspected of gastrointestinal infections. Testing is performed using the TSO3 Gastrointestinal (GI) Panel on the [employer] System. The following organisms are identified using the [employer] GI Panel: Campylobacter spp., Plesiomonas shigelloides, Salmonella [...] by the microbiology laboratory at the [facility]. Results must be interpreted within the context of all relevant clinical and laboratory findings. Assay should not be used for monitoring response to therapy. Dany Bonilla MD MICROBIOLOGY - [facility] ORDERABLES [facility] Unless otherwise noted, all lab tests performed by: Division of Pathology and Laboratory Medicine [address] [place] [address] [phone] * C. difficile DNA Detection (08/04/2023 3:24 PM CDT) Only the most recent of4 resultswithin the time period is included. C. difficile - DNA Negative Negative 08/05/2023 10:34 AM CDT [facility] C. difficile - EIA Test Not Performed Negative 08/05/2023 10:34 AM CDT [facility] C. difficile - Interpretation C. difficile DNA detection was negative making C. difficile infection highly unlikely in this patient. EIA not performed. 08/05/2023 10:34 AM CDT [facility] Stool Rectum structure / Unknown Non-blood Collection / Unknown 08/04/2023 3:24 PM CDT 08/04/2023 4:27 PM CDT Narrative [facility] - 08/05/2023 10:34 AM CDT Qualitative detection of C. difficile DNA performed using helicase-dependent amplification of a conserved region of a pathogenicity locus (PaLoc) in toxigenic C. difficile strains. It is an FDA-approved assay performed on the [employer] Instrument from [employer] and is intended for use as an [...] rapid immunoassay using the FDA-approved ImmunoCard by [employer]. Patients positive for BOTH C. difficile DNA [...] by the microbiology laboratory at the [facility]. Results must be interpreted within the context of all relevant clinical and laboratory findings. Dany Bonilla MD MICROBIOLOGY - [facility] ORDERABLES [facility] Unless otherwise noted, all lab tests performed by: Division of Pathology and Laboratory Medicine [address] [place] [address] [phone] * (ABNORMAL) Procalcitonin (08/04/2023 4:19 AM CDT) Only the most recent of3 resultswithin the time period is included. Procalcitonin 0.48(H) <=0.08 ng/mL 08/04/2023 10:15 AM CDT [facility] Blood Peripheral blood specimen / Unknown Venipuncture / Unknown 08/04/2023 4:19 AM CDT 08/04/2023 5:16 AM CDT Narrative [facility] - 08/04/2023 10:15 AM CDT Procalcitonin [...] with extended dilution as it exceeds the supervisor chassis assembly's recommended limit. Caution should be exercised when interpreting such values and done in conjunction with clinical context. Dany Bonilla MD LAB BLOOD ORDERABLES [facility] Unless otherwise noted, all lab tests performed by: Division of Pathology and Laboratory Medicine [address] [place] [address] [phone] * (ABNORMAL) Hepatic Function Panel (08/04/2023 4:19 AM CDT) Only the most recent of2 resultswithin the time period is included. Bilirubin Total <0.3 0.0 - 1.2 mg/dL 08/04/2023 11:14 AM CDT [facility] Comment: Direct and indirect bilirubin will not be reported when Total bilirubin result is <0.3 mg/dL Indocyanine Green (ICG) may cause falsely elevated bilirubin results. Total and direct bilirubin must not be measured from samples containing indocyanine green. False elevation of total bilirubin can be seen in patients with IgG concentrations above 28 g/L. Bilirubin Direct 08/04/19 24 11:14 AM CDT [facility] Comment: Direct and indirect bilirubin will not be reported when Total bilirubin result is <0.3 mg/dL Indocyanine Green (ICG) may cause falsely elevated bilirubin results. Total and direct bilirubin must not be measured from samples containing indocyanine green. Bilirubin Indirect 2023 11:14 AM CDT [facility] Comment:Direct and indirect bilirubin will not be reported when Total bilirubin result is <0.3 mg/dL Tot Protein 6.3(L) 6.4 - 8.3 gm/dL 08/04/2023 11:14 AM CDT [facility] Alkaline Phosphatase 93 35 - 104 U/L 08/04/2023 11:14 AM CDT [facility] Albumin Level 3.0(L) 3.5 - 5.2 gm/dL 08/04/2023 11:14 AM CDT [facility] AST 14 <=32 U/L 08/04/2023 11:14 AM CDT [facility] ALT 6 <=33 U/L 08/04/2023 11:14 AM CDT [facility] Blood Peripheral blood specimen / Unknown Venipuncture / Unknown 08/04/2023 4:19 AM CDT 08/04/2023 5:16 AM CDT Dany Bonilla MD LAB BLOOD ORDERABLES [facility] Unless otherwise noted, all lab tests performed by: Division of Pathology and Laboratory Medicine [address] [place] [address] [phone] * Respiratory Multiplex PCR Panel, Nasopharyngeal Swab (08/03/2023 11:06 AM CDT) Pathologist [facility] Adenovirus Not Detected Not Detected 08/03/2023 2:43 PM CDT [facility] Coronavirus 229E Not Detected Not Detected 08/03/2023 2:43 PM CDT [facility] Coronavirus HKU1 Not Detected Not Detected 08/03/2023 2:43 PM CDT [facility] Coronavirus NL63 Not Detected Not Detected 08/03/2023 2:43 PM CDT [facility] Coronavirus OC43 Not Detected Not Detected 08/03/2023 2:43 PM CDT [facility] COVID-19 (SARS-CoV-2) Not Detected Not Detected 08/03/2023 2:43 PM CDT [facility] Human Metapneumovirus Not Detected Not Detected 08/03/2023 2:43 PM CDT [facility] Human Rhinovirus/Enterov irus Not Detected Not Detected 08/03/2023 2:43 PM CDT [facility] Influenza A Not Detected Not Detected 08/03/2023 2:43 PM CDT [facility] Influenza A H1 Not Detected Not Detected 08/03/2023 2:43 PM CDT [facility] Influenza A H1 2009 Not Detected Not Detected 08/03/2023 2:43 PM CDT [facility] Influenza A H3 Not Detected Not Detected 08/03/2023 2:43 PM CDT [facility] Influenza B Not Detected Not Detected 08/03/2023 2:43 PM CDT [facility] Parainfluenza Virus 1 Not Detected Not Detected 08/03/2023 2:43 PM CDT [facility] Parainfluenza Virus 2 Not Detected Not Detected 08/03/2023 2:43 PM CDT [facility] Parainfluenza Virus 3 Not Detected Not Detected 08/03/2023 2:43 PM CDT [facility] Parainfluenza Virus 4 Not Detected Not Detected 08/03/2023 2:43 PM CDT [facility] Respiratory Syncytial Virus Not Detected Not Detected 08/03/2023 2:43 PM CDT [facility] Bordetella parapertussis Not Detected Not Detected 08/03/2023 2:43 PM CDT [facility] Bordetella pertussis Not Detected Not Detected 08/03/2023 2:43 PM CDT [facility] Chlamydophila pneumoniae Not Detected Not Detected 08/03/2023 2:43 PM CDT [facility] Mycoplasma pneumoniae Not Detected Not Detected 08/03/2023 2:43 PM CDT [facility] Swab Nasopharyngeal structure / Unknown Non-blood Collection / Unknown 08/03/2023 11:06 AM CDT 08/03/2023 11:26 AM CDT [facility] - 08/03/2023 2:43 PM CDT The assay is a qualitative multiplex PCR assay to aid in the diagnosis of respiratory pathogens through simultaneous qualitative detection and identification of multiple pathogens directly from nasopharyngeal swabs ([employer]) from individuals with respiratory symptoms. Testing is performed using the Signpost FilmArray Respiratory Panel 2.1 (RP2.1) on the Carvoyant System. The following organisms are identified using the Slidebeane RP 2.1 Panel: Adenovirus, Human Coronavirus (229E, [...] by the microbiology laboratory at the [facility] (CLIA Accreditation # [id number] and CAP Accreditation # [id number]). Results must be interpreted within the context of all relevant clinical and laboratory findings. Assay should not be used for monitoring response to therapy. Dany Bonilla MD MICROBIOLOGY - [facility] ORDERABLES [facility] Unless otherwise noted, all lab tests performed by: Division of Pathology and Laboratory Medicine [address] [place] [phone] * (ABNORMAL) Urinalysis with Reflex Culture (08/02/2023 5:30 PM CDT) Urine Appearance Cloudy(A) Clear 08/02/19 24 5:50 PM CDT [facility] Comment:This result was prev iously suppressed from the chart. Urine Color Yellow Colorless, Straw, Yellow, Dark Yellow, Straw-Yellow 08/02/2023 5:50 PM CDT [facility] Comment:This result was prev iously suppressed from the chart. Urine Specific [place] 1.011 1.003 - 1.035 08/02/2023 5:50 PM CDT [facility] Comment:This result was prev iously suppressed from the chart. Urine pH 6.0 5.0 - 8.0 08/02/2023 5:50 PM CDT [facility] Comment:This result was prev iously suppressed from the chart. Urine Glucose Negative Negative mg/dL 08/02/2023 5:50 PM CDT [facility] Comment:This result was prev iously suppressed from the chart. Urine Ketones 20(A) Negative mg/dL 08/02/2023 5:50 PM CDT [facility] Comment:This result was prev iously suppressed from the chart. Urine Blood Small(A) Negative 08/02/2023 5:50 PM CDT [facility] Comment:This result was prev iously suppressed from the chart. Urine Protein 30(A) Negative mg/dL 08/02/2023 5:50 PM CDT [facility] Comment:This result was prev iously suppressed from the chart. Urine Bilirubin Negative Negative 5:50 PM CDT [facility] Urine Urobilinogen Negative Negative 08/02/2023 5:50 PM CDT [facility] Urine Nitrite Negative Negative 08/02/2023 5:50 PM CDT [facility] Comment:This result was prev iously suppressed from the chart. Urine Leukocyte Esterase Large(A) Negative 08/02/2023 5:50 PM CDT [facility] Comment:This result was prev iously suppressed from the chart. Urine Mucous Not Seen Not Seen, Trace /HPF 08/02/2023 5:50 PM CDT [facility] Comment:This result was prev iously suppressed from the chart. Urine Bacteria 1+(A) Not Seen /HPF 08/02/2023 5:50 PM CDT [facility] Comment:This result was prev iously suppressed from the chart. Urine Squamous Epithelial Cells Not Seen Not Seen, OCC, Rare /HPF 08/02/2023 5:50 PM CDT [facility] Comment:This result was prev iously suppressed from the chart. Urine WBC 44(H) <=2 /HPF 08/02/2023 5:50 PM CDT [facility] Urine RBC 7(H) <=2 /HPF 08/02/2023 5:50 PM CDT [facility] Urine Voided urine specimen / Unknown Non-blood Collection / Unknown 08/02/2023 5:30 PM CDT 08/02/2023 5:36 PM CDT Narrative [facility] - 08/02/2023 5:50 PM CDT Some reporting parameters within the Urinalysis test have changed due to the implementation of new instrumentation in the [facility], allowing greater sensitivity of measurement. Urinalysis results reported by the [facility] using existing instrumentation, as well as Urinalysis testing performed manually or by back-up methodology at the [facility], will remain relatively unchanged. New reporting parameters and units will now be reported for all [facility]. Sujata Grant MD URINE ORDERABLES [facility] Unless otherwise noted, all lab tests performed by: Division of Pathology and Laboratory Medicine [address] [place] [phone] * EEG (08/01/2023 8:54 PM CDT) Narrative Brooklyn Mckeon MD - 08/01/2023 8:54 PM CDT Brooklyn Mckeon MD 08/02/2023 10:42 AM EEG REPORT Patient: Zari Posadas Age: 52 y.o. Consult Service: Neuro-Oncology Consult Date: August 01, 2023 Meteorological Technician: BROOKLYN MCKEON MD CLINICAL HISTORY This is [...] 19 <=19 ng/L 07/31/2023 12:23 AM CDT [facility] Blood Peripheral blood specimen / Unknown Venipuncture / Unknown 07/30/2023 11:52 PM CDT 07/30/2023 11:55 PM CDT Narrative [facility] - 07/31/2023 12:23 AM CDT Reference [...] results. Shadia Clement MD LAB BLOOD ORDERABLES [facility] Unless otherwise noted, all lab tests performed by: Division of Pathology and Laboratory Medicine [facility] [place] [address] * (ABNORMAL) Cardiac Panel (07/30/2023 8:55 PM CDT) Creatine Kinase 53 26 - 192 U/L 07/30/2023 9:36 PM CDT [facility] CKMB <2.0 <=5.3 ng/mL 07/30/2023 9:36 PM CDT [facility] Troponin T 22(H) <=19 ng/L 07/30/2023 9:36 PM CDT [facility] Comment: < 19 ng/L Suggest retest [...] CDT Michelle Metzger MD LAB BLOOD ORDERABLES [facility] Unless otherwise noted, all lab tests performed by: Division of Pathology and Laboratory Medicine [address] [place] [phone] * (ABNORMAL) Potassium Level (07/28/2023 7:10 PM CDT) Potassium Level 2.9(L) 3.4 - 4.5 mmol/L 07/28/2023 7:44 PM CDT [facility] Blood Peripheral blood specimen / Unknown Venipuncture / Unknown 07/28/2023 7:10 PM CDT 07/28/2023 7:13 PM CDT Narrative [facility] - 07/28/2023 7:44 PM CDT Reference range established based on adult population Tammy Archuleta PA-C LAB BLOOD ORDERABLES Performing Organization Address [facility] Co de Phone Number [facility] Unless otherwise noted, all lab tests performed by: Division of Pathology and Laboratory Medicine [address] [place] [phone] * (ABNORMAL) Lactoferrin Detection (07/25/2023 10:28 PM CDT) Only the most recent of2 resultswithin the time period is included. Lactoferrin - Interpretation Positive( A) Negative 07/26/2023 8:02 AM CDT [facility] Comment:Assay positive for l actoferrin indicating inflammatory cells present in fecal specimen. Recommend clinical correlation and further testing to identify cause of inflammation. Stool Rectum structure / Unknown Non-blood Collection / Unknown 07/25/2023 10:28 PM CDT 07/25/2023 11:16 PM CDT Narrative [facility] - 07/26/2023 8:02 AM CDT Testing [...] by the microbiology laboratory at the [facility]. Results must be interpreted within the context of all relevant clinical and laboratory findings. Tammy Archuleta PA-C MICROBIOLOGY - GENER AL ORDERABLES Performing Organization Address City/[facility] [address]/ZIP Co de Phone Number [facility] Unless otherwise noted, all lab tests performed by: Division of Pathology and Laboratory Medicine [address] [place] [phone] * (ABNORMAL) Calprotectin, Stool (07/25/2023 10:21 PM CDT) Only the most recent of2 resultswithin the time period is included. Calprotectin Stl-Ovalle 89.3(H) <50.0 (Normal) mcg/g 07/30/2023 11:40 AM CDT [facility] Comment: Interpretation: Borderline (50.0-120 mcg/g) Test Performed by: [facility] [address] [place] [address] Tank Car Cleaner: Shad Metzger M.D. Ph.D.; CLIA# [id number] Stool Rectum structure / Unknown Non-blood Collection / Unknown 07/25/2023 10:21 PM CDT 07/25/2023 11:16 PM CDT Tammy Archuleta PA-C MICROBIOLOGY - GENER AL ORDERABLES [facility] * CT Chest Abdomen Pelvis [...] - 192 U/L 07/23/2023 10:35 AM CDT [facility] Blood Peripheral blood specimen / Unknown Venipuncture / Unknown 07/23/2023 9:47 AM CDT 07/23/2023 9:47 AM CDT Dalia Weiner APRN LAB BLOOD ORDERABL ES [facility] Unless otherwise noted, all lab tests performed by: Division of Pathology and Laboratory Medicine [address] [place] [phone] * Hemoglobin A1c (07/05/2023 5:51 AM CDT) Hemoglobin A1c 5.3 4.3 - 5.6 % 07/05/2023 8:26 AM CDT [facility] Blood Peripheral blood specimen / Unknown Venipuncture / Unknown 07/05/2023 5:51 AM CDT 07/05/2023 6:18 AM CDT Narrative [facility] - 07/05/2023 8:26 AM CDT HbA1c values >=6.5% are diagnostic of diabetes mellitus. Diagnosis should be confirmed by repeat testing. Therapeutic Action suggested: >8.0% HbA1c; Goal of therapy: <7.0% HbA1c Monica Dominguez APRN LAB BLOOD ORDERABLES [facility] Unless otherwise noted, all lab tests performed by: Division of Pathology and Laboratory Medicine [facility] [place] [address] * EEG (07/04/2023 7:57 PM CDT) Narrative Brooklyn Mckeon MD - 07/04/2023 7:57 PM CDT Brooklyn Mckeon MD 07/04/2023 8:01 PM EEG REPORT Patient: Zari Posadas Age: 52 y.o. Consult Service: Neuro-Oncology Consult Date: July 04, 2023 Meteorological Technician: BROOKLYN MCKEON MD CLINICAL HISTORY This is 52 y.o. year-old with metastatic lung cancer to the brain. REQUESTING PHYSICIAN Dr. Kalpana Cannon TECHNIQUE Inpatient bedside study STATE Awake/Sleep MEDS [facility] FINDINGS The background is better organized [...] seizures occurred during the recording. Saloni Man LITHOGRAPHIC RETOUCHER APPRENTICE,COPY CUTTER NEUROLOGY ORDERA BLES * Historical ABORh (07/03/2023 6:54 PM CDT) ABORh A POS 07/03/2023 6:55 PM CDT [facility] Blood Peripheral blood specimen / Unknown 07/03/2023 6:54 PM CDT 07/03/2023 6:54 PM CDT Zuri Farr MD BLOOD BANK TEST ORDE LÁZARO [facility] Transfusion Services [facility] [address] [place] [address] * CKMB (07/03/2023 3:34 PM CDT) Pathologist [facility] CKMB 3.9 <=5.3 ng/mL 07/03/2023 7:04 PM CDT [facility] Blood Peripheral blood specimen / Unknown Venipuncture / Unknown 07/03/2023 3:34 PM CDT 07/03/2023 6:32 PM CDT Abhijit Farr MD LAB BLOOD ORDERABLES Performing Organization Address City/[facility] [address]/ZIP Co de Phone Number [facility] Unless otherwise noted, all lab tests performed by: Division of Pathology and Laboratory Medicine [address] [place] [phone] * (ABNORMAL) Transferrin with TIBC (06/30/2023 4:26 AM CDT) [facility] Transferrin 167(L) 200 - 360 mg/dL 06/30/2023 7:41 AM CDT [facility] Total Iron Binding Capacity 234(L) 250 - 450 mcg/dL 06/30/2023 7:41 AM CDT [facility] Blood Peripheral blood specimen / Unknown Venipuncture / Unknown 06/30/2023 4:26 AM CDT 06/30/2023 4:41 AM CDT Isma Santoyo MD LAB BLOOD ORDERABL ES [facility] Unless otherwise noted, all lab tests performed by: Division of Pathology and Laboratory Medicine [address] [place] [phone] * Iron Level (06/30/2023 4:26 AM CDT) [facility] Iron Level 43 37 - 145 mcg/dL 06/30/2023 7:41 AM CDT [facility] Is patient fasting? 06/30/2023 7:41 AM CDT [facility] Blood Peripheral blood specimen / Unknown Venipuncture / Unknown 06/30/2023 4:26 AM CDT 06/30/2023 4:41 AM CDT Isma Santoyo MD LAB BLOOD ORDERABL ES [facility] Unless otherwise noted, all lab tests performed by: Division of Pathology and Laboratory Medicine [address] [place] [phone] * Ferritin Level (06/30/2023 4:26 AM CDT) Ferritin Level 18 13 - 150 ng/mL 06/30/2023 7:41 AM CDT [facility] Blood Peripheral blood specimen / Unknown Venipuncture / Unknown 06/30/2023 4:26 AM CDT 06/30/2023 4:41 AM CDT Narrative [facility] - 06/30/2023 7:41 AM CDT Reference range established for age 17 - 60 years Isma Santoyo MD LAB BLOOD ORDERABL ES Performing Organization Address [facility] Co de Phone Number [facility] Unless otherwise noted, all lab tests performed by: Division of Pathology and Laboratory Medicine [address] [place] [phone] * VB Lactate (06/27/2023 5:59 PM CDT) Venous Lactate 0.6 0.5 - 1.6 mmol/L 06/27/2023 6:08 PM CDT [facility] Oxygen FLOW Rate/ FiO2 06/27/2023 6:08 PM CDT [facility] O2 Therapy NONE 06/27/2023 6:08 PM CDT [facility] Blood Peripheral blood specimen / Unknown Venipuncture / Unknown 06/27/2023 5:59 PM CDT 06/27/2023 6:07 PM CDT Amanda Pearson MD LAB BLOOD ORDERABLES [facility] Unless otherwise noted, all lab tests performed by: Division of Pathology and Laboratory Medicine [address] [place] [phone] * (ABNORMAL) ESR (06/27/2023 5:59 PM CDT) [facility] Sedimentation Rate 104(H) <=30 mm/hr 2023 7:27 PM CDT [facility] Blood Peripheral blood specimen / Unknown Venipuncture / Unknown 06/27/2023 5:59 PM CDT 06/27/2023 6:04 PM CDT Amanda Pearson MD LAB BLOOD ORDERABLES [facility] Unless otherwise noted, all lab tests performed by: Division of Pathology and Laboratory Medicine [address] [place] [phone] * CRP (06/27/2023 5:59 PM CDT) [facility] CRP (C Reactive Protein) 13.81 mg/L 06/27/2023 7:02 PM CDT [facility] Blood Peripheral blood specimen / Unknown Venipuncture / Unknown 06/27/2023 5:59 PM CDT 06/27/2023 6:04 PM CDT Narrative [facility] - 06/27/2023 7:02 PM CDT Adult Reference ranges for HS CRP assay are as follows: Reference ranges when used to assess cardiac risk: <1.00 mg/L Low cardiovascular risk 1.00-3.00 mg/L Average cardiovascular risk >3.00 mg/L High cardiovascular risk Reference ranges when used to assess inflammatory responses: Less than or equal to 10.00 mg/L. Amanda Pearson MD LAB BLOOD ORDERABLES [facility] Unless otherwise noted, all lab tests performed by: Division of Pathology and Laboratory Medicine [address] [place] [phone] * (ABNORMAL) Lipid panel (04/18/2023 2:50 PM BROADCAST OPERATIONS DIRECTOR) [facility] Cholesterol Total 276(H) <=199 mg/dL 04/18/2023 4:02 PM [facility] Comment: ATP III Classification of Total Cholesterol - Primary Target of Therapy (in mg/dL): <200 Desirable 200-239 Borderline high >=240 High Triglyceride 99 <=149 mg/dL 04/18/2023 4:02 PM [facility] Comment: ATP III Classification of Serum Triglycerides Primary Target of Therapy (in mg/dL): <150 Normal 150-199 Borderline high 200-499 High >=500 Very high Non-fasting triglycerides >200 mg/dL may be followed up with a fasting Lipid Panel. Calculated LDL-C may be falsely decreased when non-fasting triglycerides >200 mg/dL. HDL Cholesterol 95 >=40 mg/dL 04/18/2023 4:02 PM [facility] LDL Cholesterol 161(H) <=100 mg/dL 04/18/2023 4:02 PM [facility] Comment: ATP III Classification of LDL Cholesterol Primary Target of Therapy (in mg/dL): <100 Optimal 100-129 Near optimal/above optimal 130-159 Borderline high 160-189 High >=190 Very high Very Low Density Lipoprotein 20 mg/dL 04/18/2023 4:02 PM [facility] Is patient fasting? No 04/18/2023 4:02 PM [facility] Comment:last meal longer ray n than 4 hrs prior Blood Peripheral blood specimen / Unknown Venipuncture / Unknown 04/18/2023 2:50 PM BROADCAST OPERATIONS DIRECTOR 04/18/2023 2:52 PM BROADCAST OPERATIONS DIRECTOR Sindi Casiano MD LAB BLOOD ORDERABLES [facility] Unless otherwise noted, all lab tests performed by: Division of Pathology and Laboratory Medicine [address] [place] [phone] [facility] Unless otherwise noted, all lab tests performed by: Division of Pathology and Laboratory Medicine [address] [place] [phone] * (ABNORMAL) POC Creatinine (04/16/2023 4:39 PM BROADCAST OPERATIONS DIRECTOR) Only the most recent of2 resultswithin the time period is included. POC Creatinine 1.2 0.6 - 1.3 mg/dL 04/16/2023 4:41 PM [facility] Comment:Medications, especia lly hydroxyurea or supplements, such as ascorbate, can interfere with test results causing a falsely and significantly higher result than expected. If a problem is suspected with a patient's result, a sample should be sent to the laboratory for confirmatory testing. POC eGFR 55(L) >=60 mL/min/1.7 3 sq. m 04/16/2023 4:41 PM [facility] Comment: The eGFRcr is calculated with [...] criteria for CKD. Blood 04/16/2023 4:39 PM BROADCAST OPERATIONS DIRECTOR 04/16/2023 4:41 PM BROADCAST OPERATIONS DIRECTOR Narrative [facility] - 04/16/2023 4:41 PM BROADCAST OPERATIONS DIRECTOR Method description: The i-STAT is an analyzer [...] Dalia Weiner APRN POCT ORDERABLES - DEVICE [facility] Unless otherwise noted, all lab tests performed by: Division of Pathology and Laboratory Medicine [facility] [place] [address] * MRI Brain with and without Contrast - Frameless Gamma Knife (04/09/2023 8:55 AM BROADCAST OPERATIONS DIRECTOR) Anatomical Region Laterality Modality Head Magnetic Resonan ce 04/09/2023 10:1 7 AM BROADCAST OPERATIONS DIRECTOR Impressions 04/09/2023 10:38 AM BROADCAST OPERATIONS DIRECTOR No new metastasis or leptomeningeal disease. Several lesions demonstrate interval progression with stability of many other enhancing lesions. ACTIONABLE ITEMS/RECOMMENDATIONS: None. Narrative 04/09/2023 10:38 AM BROADCAST OPERATIONS DIRECTOR FULL RESULT: Examination: MRI BRAIN WITH AND [...] lesions. ACTIONABLE ITEMS/RECOMMENDATIONS: None. Saira Carrasquillo APRN [facility] ORDERABLES after 01/12/2023 Advance Directives Documents on File Type Date Recorded Patient Blindmaker Expl anation Advance Directives: Medical Power of Drapery Worker 06/28/2023 Medical Power of Att orney * [...] 7:36 PM 07/07/2023 8:52 PM Care Teams Local Flatbed Driver Relationship Specialty Start Date End Date Luisana Lucio MD [address] [place] [phone] [email or web address] PCP - External Primary Care Provider Obstetrics/Gynecology 07/17/16 Roseann Jensen MD [address] [place] [phone] [email or web address] PCP - External Referring Otolaryngology 07/19/16 Sindi Casiano MD [address] [place] [phone] [email or web address] PCP - General Thoracic Medicine 11/24/20 Ajith Fink MD [address] [place] [phone] [email or web address] Consulting Physician Nephrology 08/12/21 Annette Kang MD [address] [place] [phone] [email or web address] Consulting Physician Gastroenterology, Hepatology and Nutrition 12/03/20 Frannie Emery MD [address] [place] [address] [phone] [email or web address] Consulting Physician Neurosurgery 05/21/23 Rajinder English APRN [address] [place] [address] [phone] [email or web address] Nurse Practitioner Neurosurgery 05/21/23
[2024-01-12] MEDS ORDERED: NA CHLORIDE 0.9% 1,000 ML ONE (16:12)
[2024-01-12 16:21] LABS: Absolute Eosinophils 0.1 K/uL (0-0.5); Absolute Lymphocytes (CBC) 0.9 K/uL (0.7-4.9); Absolute Monocytes 0.5 K/uL (0.1-1.3); Absolute Neutrophil 4.5 K/uL (1.8-8.0); Basophils % 0.5 % (0-1.3); Eosinophils % 1.4 % (0-4.4); Hematocrit 34.8 % (36.0-45.0); Hemoglobin 11.3 g/dL (12.0-15.0); Lymphocytes % 15.3 % (15.3-44.8); MCH 28.9 pg (27.0-35.0); MCHC 32.4 g/dL (32.0-36.0); MCV 89.3 fL (80-100); MPV 7.8 fL (7.6-11.3); Monocytes % 8.5 % (3.3-12.3); Neutrophils % 74.3 % (41.7-73.7); Platelets 428 thou/uL (152-406); Red Cell Distribution Width 15.1 % (12.1-15.2)
[2024-01-12 16:22] LABS: PT Prothrombin Time 13.2 SECONDS (9.4-12.5); Protime INR 1.18
[2024-01-12 16:40] LABS: Albumin 3.1 g/dL (3.4-5.0); Albumin/Globulin Ratio 0.7 (1.1-1.8); Anion Gap 16.6 mEq/L (5.0-15.0); Bilirubin Direct 0.3 mg/dL (0-0.2); Bilirubin Indirect, Calculated 0.5 mg/dL (0.2-0.8); Bilirubin Total 0.8 mg/dL (0.2-1.0); Globulin 4.3 g/dL (2.3-3.5); Magnesium 1.8 mg/dL (1.6-2.4); Potassium 3.6 mEq/L (3.5-5.1); Protein, Total 7.4 g/dL (6.4-8.2); Troponin High Sensitivity 7.8 pg/mL (<58.9)
--- NOTE | 2024-01-12 16:55 | EDPHYS ---
Physician Documentation [facility] Name: Zari Posadas Age: 53 yrs Sex: Female : 1970 Arrival Date: 01/12/2024 Time: 15:21 Bed 5 Private MD: ED Physician Axel Weiner HPI: 01/11 16:44 This 53 yrs old Female presents to ER via EMS with complaints of General sudhakar Weakness. 16:44 WEAK, CONFUSED. The patient presents with confusion, trouble concentrating. Onset: The sudhakar symptoms/episode began/occurred 3 day(s) ago. Possible causes: CVA or TIA, the patient woke up with the symptoms, drug use, low blood sugar, seizure, sepsis, unknown. Associated signs and symptoms: The patient has no apparent associated signs or symptoms. Current symptoms: In the emergency department the patient's symptoms have improved, mildly. Patient's baseline: Neuro: alert but confused, Speech: normal for age. Severity of symptoms: At their worst the symptoms were mild in the emergency department the symptoms are unchanged. The patient has experienced similar episodes in the past, multiple times. Historical: - Allergies: 15:23 ambien; bp - PMHx: 15:23 brain cancer; Lung Cancer; Seizures; bp - Immunization history:: Adult Immunizations up to date. - Infectious Disease History:: Denies. - Social history:: Smoking status: Patient denies any tobacco usage or history of. - Family history:: not pertinent. ROS: 16:44 Constitutional: Negative for fever, chills, and weight loss, Eyes: Negative for injury, sudhakar pain, redness, and discharge, ENT: Negative for injury, pain, and discharge, Neck: Negative for injury, pain, and swelling, Cardiovascular: Negative for chest pain, palpitations, and edema, Respiratory: Negative for shortness of breath, cough, wheezing, and pleuritic chest pain, Abdomen/GI: Negative for abdominal pain, nausea, vomiting, diarrhea, and constipation, Back: Negative for injury and pain, : Negative for injury, bleeding, discharge, and swelling, MS/Extremity: Negative for injury and deformity, Skin: Negative for injury, rash, and discoloration, Psych: Negative for depression, anxiety, suicide ideation, homicidal ideation, and hallucinations, Allergy/Immunology: Negative for hives, rash, and allergies, Endocrine: Negative for neck swelling, polydipsia, polyuria, polyphagia, and marked weight changes, Hematologic/Lymphatic: Negative for swollen nodes, abnormal bleeding, and unusual bruising, 16:44 Neuro: Positive for altered mental status, seizure activity, weakness, Exam: 16:44 Constitutional: This is a well developed, well nourished patient who is awake, alert, sudhakar and in no acute distress. Head/Face: Normocephalic, atraumatic. Eyes: Pupils equal round and reactive to light, extra-ocular motions intact. Lids and lashes normal. Conjunctiva and sclera are non-icteric and not injected. Cornea within normal limits. Periorbital areas with no swelling, redness, or edema. ENT: Nares patent. No nasal discharge, no septal abnormalities noted. Tympanic membranes are normal and external auditory canals are clear. Oropharynx with no redness, swelling, or masses, exudates, or evidence of obstruction, uvula midline. Mucous membranes moist. Neck: Trachea midline, no thyromegaly or masses palpated, and no cervical lymphadenopathy. Supple, full range of motion without nuchal rigidity, or vertebral point tenderness. No Meningismus. Chest/axilla: Normal chest wall appearance and motion. Nontender with no deformity. No lesions are appreciated. Respiratory: Lungs have equal breath sounds bilaterally, clear to auscultation and percussion. No rales, rhonchi or wheezes noted. No increased work of breathing, no retractions or nasal flaring. Abdomen/GI: Soft, non-tender, with normal bowel sounds. No distension or tympany. No guarding or rebound. No evidence of tenderness throughout. Back: No spinal tenderness. No costovertebral tenderness. Full range of motion. Pelvic Exam: Normal external genitalia. Speculum exam with closed cervical os, no discharge or bleeding noted. Bimanual exam with normal adnexa, no adnexal or cervical motion tenderness. Normal uterus. Female : Normal external genitalia. Skin: Warm, dry with normal turgor. Normal color with no rashes, no lesions, and no evidence of cellulitis. Neuro: Awake and alert, GCS 15, oriented to person, place, time, and situation. Cranial nerves II-XII grossly intact. Motor strength 5/5 in all extremities. Sensory grossly intact. Cerebellar exam normal. Normal gait. Psych: Awake, alert, with orientation to person, place and time. Behavior, mood, and affect are within normal limits. 16:44 Musculoskeletal/extremity: ROM: LEFT ARM LEG NO MOVEMENT, Circulation is intact in all extremities. 16:44 Neuro: Orientation: to person, Not oriented to place, time, situation, 18:03 ECG was reviewed by the Attending Physician. [facility] Vital Signs: 15:22 BP 125 / 92; Pulse 105; Resp 16; Temp 98; Pulse Ox 97% ; bp 17:45 BP 140 / 86; Pulse 100; Resp 16; Pulse Ox 100% ; bp 18:49 BP 114 / 86; Pulse 98; Resp 16; Pulse Ox 100% ; bp MDM: 15:34 Medical Screening Exam initiated sudhakar 16:48 Differential Diagnosis altered mental status, sepsis, flu. Differential Diagnosis: CVA, sudhakar electrolyte abnormality, hypoglycemia, intracranial bleed, meningitis, overdose, pneumonia, seizure, sepsis, TIA, UTI, volume depletion. Data reviewed: vital signs, nurses notes, EMS record, lab test result(s), EKG, radiologic studies, CT scan, plain films. Consideration of Admission/Observation Patient was admitted/placed on observation. Escalation of care including admission/observation considered. I considered the following discharge prescriptions or medication management in the emergency department Medications were administered in the Emergency Department. See MAR. Independent interpretation of the following test(s) in the Emergency Department EKG: See my EKG interpretation above. Test considered but Not performed: MRI: NO MRI BRAIN. Care significantly affected by the following chronic conditions: Cancer, SEIZURES, LEFT HEMIPARESIS. 01/11 15:35 Order name: Basic Metabolic Panel; Complete Time: 16:41 [facility] 01/11 15:35 Order name: CBC with Diff; Complete Time: 16:41 [facility] 01/11 15:35 Order name: LFT's; Complete Time: 16:41 01/11 15:35 Order name: Magnesium; Complete Time: 16:41 01/11 15:35 Order name: NT PRO-BNP; Complete Time: 16:41 01/11 15:35 Order name: PT-INR; Complete Time: 16:41 01/11 15:35 Order name: Troponin HS; Complete Time: 16:41 01/11 15:35 Order name: Lipase; Complete Time: 16:41 [facility] 01/11 15:35 Order name: Urinalysis w/ reflexes; Complete Time: 18:01 [facility] 01/11 15:35 Order name: XRAY Chest (1 view); Complete Time: 18:01 [facility] 01/11 16:42 Order name: CT Head Brain wo Cont [facility] 01/11 18:10 Order name: CT [facility] 01/11 18:21 Order name: CT [facility] 01/11 17:17 Order name: Social Service Consult [facility] 01/11 15:35 Order name: Cardiac monitoring; Complete Time: 16:08 [facility] 01/11 15:35 Order name: EKG - Nurse/Tech; Complete Time: 18:11 [facility] 01/11 15:35 Order name: IV Saline Lock; Complete Time: 16:08 [facility] 01/11 15:35 Order name: Labs collected and sent; Complete Time: 16:08 [facility] 01/11 15:35 Order name: O2 Per Protocol; Complete Time: 16:11 [facility] 01/11 15:35 Order name: O2 Sat Monitoring; Complete Time: 16:11 [facility] EC:03 Rate is 109 beats/min. Rhythm is regular. QRS Aniwa is Normal. [place] interval is normal. [facility] QRS interval is normal. No Q waves. T waves are Normal. No ST changes noted. Clinical impression: Sinus tachycardia and No evidence of ischemia. Interpreted by me. Reviewed by me. Administered Medications: 17:50 Drug: NS 0.9% IV 500 ml IV at bolus once; to be given as a bolus over 30 minutes Route: ph IV; Rate: bolus; Site: right wrist; 18:12 Follow up: Response: No adverse reaction bp 18:12 Follow up: IV Status: Completed infusion bp 17:50 Drug: Rocephin IV 1 grams IV at per protocol once; Given slow IV push per pharmacy ph instructions Route: IV; Rate: per protocol; Site: right wrist; 18:12 Follow up: IV Status: Completed infusion bp 17:50 Drug: Famotidine IVP 20 mg IVP once; dilute with 10 mL 0.9% NaCl; give over 2 minutes ph Route: IVP; Site: right wrist; 18:12 Follow up: Response: No adverse reaction bp 17:51 Not Given (Other Intervention Used): ns 0.9% 1000 ml IV at 125 ml/hr continuous ph 18:10 Drug: Keppra IV 1000 mg IV at per protocol once Route: IV; Rate: per protocol; Site: ph right wrist; 18:12 Follow up: IV Status: Completed infusion bp 18:10 Drug: Decadron - Dexamethasone IVP 10 mg IVP once Route: IVP; Site: right wrist; ph 18:13 Follow up: Response: No adverse reaction bp Disposition Summary: 01/12/24 16:55 Hospitalization Ordered Notes: Hospitalization Status: Inpatient Admission sudhakar Provider: Jonathan Meneses cha Location: Telemetry/MedSurg (observation) sudhakar Condition: Fair sudhakar Problem: new sudhakar Symptoms: have improved sudhakar Bed/Room Type: Standard sudhakar Room Assignment: 204(01/12/24 17:32) eb Diagnosis - Weakness sudhakar - Cerebral edema - VASOGENIC EDEMA sudhakar - Abnormal brain scan - EDEMA, VASOGENIC, KNOWN BRAIN METS sudhakar - Altered mental status, unspecified - HX SMALL CELL LUNG , METASTATIC LUNG TO sudhakar BRAIN, HOSPICE CARE(01/12/24 18:09) Forms: - Medication Reconciliation Form sudhakar - SBAR form sudhakar - Leadership Thank You Letter sudhakar Signatures: Dispatcher [employer] EDMS Axel Weiner MD MD cha Hall, Patricia, RN RN Blanco Bob, RN RN bp Isabela Ramirez Corrections: (The following items were deleted from the chart) 15:36 15:36 Chest Single View+RAD.RAD.BRZ ordered. EDMS EDMS 16:43 16:43 Stone Protocol+CT.RAD.BRZ ordered. EDMS EDMS 16:56 16:55 Altered mental status, unspecified sudhakar sudhakar 17:32 16:55 sudhakar eb 18:09 16:56 Altered mental status, unspecified - HX SMALL CELL LUNG , METASTATIC LUNG TO sudhakar BRAIN sudhakar
--- NOTE | 2024-01-12 16:55 | ER ---
Nurse's Notes [facility] Name: Zari Posadas Age: 53 yrs Sex: Female : 1970 Arrival Date: 01/12/2024 Time: 15:21 Bed 5 Private MD: Diagnosis: Altered mental status, unspecified-HX SMALL CELL LUNG , METASTATIC LUNG TO BRAIN, HOSPICE CARE;Weakness;Cerebral edema-VASOGENIC EDEMA;Abnormal brain scan-EDEMA, VASOGENIC, KNOWN BRAIN METS Presentation: 01/11 15:22 Chief complaint: EMS states: GEN WEAKNESS AND DYSURIA. Coronavirus screen: At this bp time, the client does not indicate any symptoms associated with coronavirus-19. Ebola Screen: No symptoms or risks identified at this time. Initial Sepsis Screen: Does the patient meet any 2 criteria? No. Patient's initial sepsis screen is negative. Does the patient have a suspected source of infection? No. Patient's initial sepsis screen is negative. Risk Assessment: Do you want to hurt yourself or someone else? Patient reports no desire to harm self or others. Onset of symptoms is unknown. 15:22 Method Of Arrival: EMS: [facility] bp 15:22 Acuity: TYSHAWN 3 bp Triage Assessment: 15:23 General: Appears in no apparent distress. unkempt, Behavior is calm, listless. Pain: bp Complains of pain in abdomen. EENT: No deficits noted. Neuro: Level of Consciousness is awake, obeys commands, listless, Oriented to Appropriate for age. : Reports burning with urination, incontinence. Historical: - Allergies: 15:23 ambien; bp - PMHx: 15:23 brain cancer; Lung Cancer; Seizures; bp - Immunization history:: Adult Immunizations up to date. - Infectious Disease History:: Denies. - Social history:: Smoking status: Patient denies any tobacco usage or history of. - Family history:: not pertinent. Screenin:55 [facility] ED Fall Risk Assessment (Adult) History of falling in the last 3 months, ph including since admission Yes- fall prone (multiple falls) (3 pts) Confusion or Disorientation Yes (5 pts) Intoxicated or Sedated No (0 pts) Impaired Gait Yes (1 pt) Mobility Assist Device Used Yes (1 pt) Altered Elimination Yes (1 pt) Score/Fall Risk Level 3 or more points = High Risk Oriented to surroundings, Maintained a safe environment, Hourly rounding (assess needs \T\ fall precautionary measures) done. Abuse screen: Denies threats or abuse. Denies injuries from another. Nutritional screening: No deficits noted. Tuberculosis screening: No symptoms or risk factors identified. Assessment: 16:53 General: Appears in no apparent distress. uncomfortable, Behavior is drowsy. Pain: ph Complains of pain in groin. Neuro: Level of Consciousness is awake, alert, obeys commands, Oriented to person, place. Cardiovascular: Capillary refill < 3 seconds in bilateral fingers Patient's skin is warm and dry. Respiratory: Airway is patent Respiratory effort is even, unlabored. Derm: Decubitus located on sacrum is stage I. Derm: Wound noted Other: bilateral labia and inner thighs red and excoriated in appearance. 17:08 Reassessment: Patient and/or family updated on plan of care and expected duration. Pain bm7 level reassessed. DR. MENESES AT BEDSIDE TO ASSESS. DAUGHTER AT BEDSIDE WELL. 17:46 Reassessment: REPORT FAXED 204. bp 18:49 Reassessment: FAMILY AT B/S. PT NOW DNR PER MPOA, SIGNED/WITNESSED. bp Vital Signs: 15:22 BP 125 / 92; Pulse 105; Resp 16; Temp 98; Pulse Ox 97% ; bp 17:45 BP 140 / 86; Pulse 100; Resp 16; Pulse Ox 100% ; bp 18:49 BP 114 / 86; Pulse 98; Resp 16; Pulse Ox 100% ; bp ED Course: 15:22 Patient arrived in ED. bp 15:23 Triage completed. bp 15:23 Arm band placed on. bp 15:25 Cathy Martinez, RN is Primary Nurse. ph 15:34 Axel Weiner MD is Attending Physician. sudhakar 16:08 Appears restless. Awaiting lab results. bm7 16:08 Patient has correct armband on for positive identification. Bed in low position. Call bm7 light in reach. Side rails up X2. Client placed on continuous cardiac and pulse oximetry monitoring. NIBP monitoring applied. cafeteria monitor on. Pulse ox on. Warm blanket given. Verbal reassurance given. 16:08 Initial lab(s) drawn, by me, sent to lab. X-ray(s) taken. Maintain EMS IV. Dressing bm7 intact. Site clean \T\ dry. Gauge \T\ site: 22 right wrist . Flushed with 10 mL NS. Patient maintains SpO2 saturation greater than 95% on room air. 16:17 XRAY Chest (1 view) In Process Unspecified. EDMS 16:54 Samira Meneses is Hospitalizing Provider. [facility] 16:54 Hospitalizing Provider role handed off by Samira Meneses [facility] 16:54 Jonathan Meneses MD is Hospitalizing Provider. [facility] 17:08 Assisted with dressing. Repositioned patient. Oral care given. Cleaned of incontinence. bm7 Linen changed. 17:08 Urine collected: Andre catheter specimen, cloudy, Amount Returned: 200mL. bm7 18:50 No provider procedures requiring assistance completed. Patient admitted, IV remains in bp place. Administered Medications: 17:50 Drug: NS 0.9% IV 500 ml IV at bolus once; to be given as a bolus over 30 minutes Route: ph IV; Rate: bolus; Site: right wrist; 18:12 Follow up: Response: No adverse reaction bp 18:12 Follow up: IV Status: Completed infusion bp 17:50 Drug: Rocephin IV 1 grams IV at per protocol once; Given slow IV push per pharmacy ph instructions Route: IV; Rate: per protocol; Site: right wrist; 18:12 Follow up: IV Status: Completed infusion bp 17:50 Drug: Famotidine IVP 20 mg IVP once; dilute with 10 mL 0.9% NaCl; give over 2 minutes ph Route: IVP; Site: right wrist; 18:12 Follow up: Response: No adverse reaction bp 17:51 Not Given (Other Intervention Used): ns 0.9% 1000 ml IV at 125 ml/hr continuous ph 18:10 Drug: Keppra IV 1000 mg IV at per protocol once Route: IV; Rate: per protocol; Site: ph right wrist; 18:12 Follow up: IV Status: Completed infusion bp 18:10 Drug: Decadron - Dexamethasone IVP 10 mg IVP once Route: IVP; Site: right wrist; ph 18:13 Follow up: Response: No adverse reaction bp Medication: 16:55 VIS not applicable for this client. ph Outcome: 16:55 Decision to Hospitalize by Provider. sudhakar 18:49 Admitted to Med/surg accompanied by tech, via stretcher, bp 18:49 Condition: stable 18:49 Instructed on the need for admit, 19:17 Patient left the ED. bm8 Signatures: Dispatcher [employer] EDAxel Alamo MD MD cha Hall, Patricia, RN RN Blanco Pacheco, RN RN Elisa Reaves, RN RN bm7 Vijay Rogers RN RN bm8
--- NOTE | 2024-01-12 17:03 | RAD REPORT ---
EXAMINATION: ONE VIEW CHEST XR CLINICAL INDICATION: Female, 53 years old.,COUGH TECHNIQUE: Frontal chest projection is submitted. Examination is limited by patient positioning and t echnique. COMPARISON: 01/04/2024 FINDINGS: The lungs are mildly hypoinflated and clear. No pneumothorax or sizable effusion. The heart is chayo l in size. Gastric band in place. IMPRESSION: No acute intrathoracic abnormalities.
[2024-01-12 17:14] LABS: Specific Gravity 1.029 (1.005-1.030); Sqamous Epithelial <5 /HPF (None Seen); Urine Bacteria <20 /HPF (<20); Urine Bilirubin 1+ (Negative); Urine Blood 1+ (Negative); Urine Clarity Turbid (Clear); Urine Color Yellow (Yellow); Urine Culture Reflex Order NOT NEEDED; Urine Glucose NEGATIVE (Negative); Urine Ketones 4+ (Over) (Negative); Urine Microscopic Reflex YN ORDER UMIC; Urine Mucus Slight /HPF (None Seen); Urine Nitrite NEGATIVE (Negative); Urine Protein 1+ (Negative); Urine RBC <5 /HPF (None Seen); Urine Urobilinogen 1+ (Normal); Urine WBC <5 /HPF (<5); Urine pH 5.5 (5.0-7.0)
--- NOTE | 2024-01-12 17:14 | P.HP ---
Certification for Inpatient Patient admitted to: Observation With expected LOS: <2 Midnights Patient will require the following post-hospital care: Hospice Practitioner: I am a practitioner with admitting privileges, knowledge of patient current condition, hospital course, and medical plan of care. Services: Services provided to patient in accordance with Admission requirements found in Title 42 Section 412.3 of the Code of Federal Regulations Patient History Date of Service: 01/12/24 Reason for admission: Worsening wound/weakness and needing hospice placement History of Present Illness: Patient is a 53-year-old female who came into the hospital after having multiple falls and being confused. 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 Patient has been dealing with this for the last 8 years. Her prognosis has slowly worsened. The family stopped any further radiation and chemotherapy about a year ago. They proceeded with hospice and patient is under the care of hospice care team. The daughters try to get her set up at [facility]. She has developed stage II-III sacral decubitus wounds which are draining quite extensively. The daughter is no longer able to care for her mother at home. They wanted to proceed with placement at [facility]. Patient will be admitted for observation. Allergies No Known Drug Allergies Allergy (Verified 07/09/20 22:21) Unknown Home Medications: Alectinib HCl [Alecensa] 600 mg PO BID 07/12/20 Potassium Chloride 20 meq PO BID #60 packet 07/12/20 - Past Medical/Surgical History Diabetic: No -: Small cell lung cancer -: Thyroid cancer -: Metastatic brain lesions -: Gamma knife radiation -: Cholecystectomy -: lap band -: fallopian tube removal - Family History Mother Medical History: Heart disease, Hypertension, Diabetes - Social History Smoking Status: Former smoker Alcohol use: Yes CD- Drugs: No Caffeine use: Yes Review of Systems 10-point ROS is otherwise unremarkable Physical Examination - Vital Signs Temperature: 98 F Blood Pressure: 110/70 Pulse: 80 Respirations: 18 Pulse Ox (%): 95 - Physical Exam General: Alert, In no apparent distress, Oriented x2, Confused HEENT: Atraumatic, PERRLA, Mucous membr. moist/pink, EOMI, Sclerae nonicteric Neck: Supple, 2+ carotid pulse no bruit, No LAD, Without JVD or thyroid abnormality Respiratory: Diminished Cardiovascular: Regular rate/rhythm, Normal S1 S2, No murmurs Gastrointestinal: Normal bowel sounds, Soft and benign, Non-distended, No tenderness Musculoskeletal: No clubbing, No swelling, No tenderness Integumentary: No rashes Neurological: Normal tone, Sensation intact, Abnormal gait, Abnormal speech, Abnormal strength, Abnormal cranial nerve function Lymphatics: No axilla or inguinal lymphadenopathy - Studies Laboratory Data (last 24 hrs) 01/12/24 01/12/24 01/12/24 16:08 16:08 16:08 WBC 6.10 Hgb 11.3 L Hct 34.8 L Plt Count 428 H PT 13.2 H INR 1.18 Sodium 137 Potassium 3.6 BUN 23 H Creatinine 0.81 Glucose 84 Magnesium 1.8 Total Bilirubin 0.8 AST 21 ALT 27 Alkaline Phosphatase 87 Lipase 66 Assessment & Plan - Problems (Diagnosis) (1) 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 Arrange for hospice care at [facility] 2. Continue with pain control 3. Patient currently remains a full code per her wishes. Will revisit this with the patient and the family prior to discharging 4. Wound care 5. Supportive care going forward Discharge Plan: Other Plan to discharge in: 24 Hours - Advance Directives Does patient have a Living Will: No Does patient have a Durable POA for Healthcare: No - Code Status/Comfort Care Code Status Assessed: Yes Code Status: Full Code Critical Care: No Time Spent Managing PTS Care (In Minutes): 45
[2024-01-12] MEDS ORDERED: CEFTRIAXONE 1000 MG/VIAL ONE (17:39)
[2024-01-12] MEDS ORDERED: ONDANSETRON 4 MG/2 ML VIAL ONE (17:40)
[2024-01-12] MEDS ORDERED: FAMOTIDINE 20 MG/2 ML VIAL IV ONE (17:40)
[2024-01-12] MEDS ORDERED: NA CHLORIDE 0.9% 500 ML ONE (17:40)
[2024-01-12] MEDS ORDERED: MORPHINE 2 MG/ML SYR ONE (17:40)
[2024-01-12] MEDS: MORPHINE 2 MG/ML SYR IV PRN (17:51)
[2024-01-12] MEDS: ONDANSETRON 4 MG/2 ML VIAL IV PRN (17:51)
[2024-01-12] MEDS ORDERED: dexAMETHasone 10 MG/ML VIAL ONE (18:04)
[2024-01-12] MEDS ORDERED: NA CHLORIDE 0.9% 100 ML ONE (18:05)
[2024-01-12] MEDS ORDERED: LEVETIRACETAM 500 MG/5 ML VIAL IV ONE (18:05)
--- NOTE | 2024-01-12 18:09 | RAD REPORT ---
EXAMINATION: CT Stone Protocol CLINICAL INDICATION: Female, 53 years old. PAIN TECHNIQUE: CT abdomen and pelvis was performed, without IV contrast, as per department protocol. Axia l, sagittal and coronal reconstructions were obtained. One or more of the following dose reduction techniques were used: Automated exposure control, adjustment of the mA and kV according to the patien t size, and iterative reconstruction. Unless otherwise specified, incidental findings do not require dedicated imaging follow-up. COMPARISON: 01/05/2024 CT chest, abdomen, pelvis. FINDINGS: The lack of intravenous contrast limits the sensitivity of this exam for evaluation of solid visceral organs, vascular structures, and retroperitoneum. LOWER CHEST: The visualized lung bases are clear. LIVER: Normal in size and contour. No focal lesion. BILIARY SYSTEM: Status post cholecystectomy. SPLEEN: Normal size. No focal lesion. PANCREAS: No mass, ductal dilation, or yari-pancreatic fluid. ADRENALS: Normal; no mass. KIDNEYS AND URETERS: Normal size and contour. No hydronephrosis. URINARY BLADDER: Decompressed with Andre catheter in place. GASTROINTESTINAL TRACT: LAP-BAND in place. No evidence of bowel obstruction, significant free fluid, free air or abscess. Colonic interposition anterior to the liver again seen. APPENDIX: Normal appendix. LYMPH NODES: No lymphadenopathy. MUSCULOSKELETAL: No acute or suspicious osseous abnormality. ADDITIONAL FINDINGS: None. IMPRESSION: No acute or concerning abnormalities in the abdomen or pelvis, with evaluation limited by lack of IV contrast. Stable incidental findings as above.
--- NOTE | 2024-01-12 18:21 | RAD REPORT ---
EXAM: CT Head Brain Wo Cont HISTORY: MENTAL STATUS CHANGE COMPARISON: 01/04/2024 and 12/13/2023 TECHNIQUE: Multiple contiguous axial images were obtained for a CT of the brain without contrast. Sag ittal and coronal reformats were performed. One or more of the following dose reduction techniques were used: Automated exposure control, adjus tment of the mA and kV according to patient size, and iterative reconstruction. Unless otherwise specified, incidental findings do not require dedicated imaging follow-up. FINDINGS: No evidence of hydrocephalus, or intracranial hyperdense hemorrhage. Changes of partially empty sella again seen. Right parietal isodense 7 mm subdural fluid collection is stable in thickness, although there is mild ly increased mass effect upon the adjacent high parietal sulci. Mild parenchymal atrophic changes. Encephalomalacia in the lateral left temporal lobe, with marginal dystrophic calcification, stable. Parenchymal atrophic changes again seen. Left parietal parasagittal subcortical focus of mineralizati on, stable. Confluent periventricular and deep white matter hypodensities, more extensive on the right, with additional areas of subcortical hypodensity in the right subinsular, basal frontal, and o percular regions, with progressive mass effect. This results in mildly more pronounced effacement of the body of the right lateral ventricle. Leftward midline shift, measuring 3 mm. The calvarium is intact. The visualized paranasal sinuses are well-aerated. Left mastoid air cells ar e again opacified. IMPRESSION: White matter hypodensity with vasogenic edema pattern centered on the right opercular and subinsular regions. Stable right parietal isodense subdural collection measuring 7 mL in thickness, a reflect subacute to chronic blood products Mildly progressive mass effect with effacement of the right frontoparietal sulci, body of right later al ventricle, and slightly more pronounced leftward midline shift, measuring 3 mm. No evidence of herniation. THIS REPORT CONTAINS FINDINGS THAT MAY BE CRITICAL TO PATIENT CARE. The findings were verbally commun icated via telephone to Axel Weiner MD on 01/12/2024 6:19 PM.
[2024-01-12 19:35] VITALS: BMI 32.5
[2024-01-12] MEDS: levETIRAcetam 500 MG TAB PO SCH (21:31)
[2024-01-13 07:17] VITALS: O2SAT 100
[2024-01-13] MEDS: FLU (Fluarix Triv) TS24-25(6MOS UP)/PF 45 MCG/0.5 ML Syringe IM ONE (11:15)
--- NOTE | 2024-01-13 13:08 | P.PN ---
Date of Service: 01/13/24 Subjective No complaints, awaiting family. No distress Review of Systems 10-point ROS is otherwise unremarkable Physical Examination - Vital Signs reviewed - Physical Exam General: Alert, In no apparent distress, Oriented x2, Confused HEENT: Atraumatic, PERRLA, Mucous membr. 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 Arrange for hospice care at [facility] 2. Continue with pain control 3. Patient currently remains a full code per her wishes. Will revisit this with the patient and the family prior to discharging 4. Wound care 5. Supportive care going forward Discharge Plan: Other Plan to discharge in: 24 Hours - Advance Directives Does patient have a Living Will: No Does patient have a Durable POA for Healthcare: No - Code Status/Comfort Care Code Status Assessed: Yes Code Status: Full Code Critical Care: No Time Spent Managing PTS Care (In Minutes): 45 <Marylu Hillman - Last Filed: 01/13/24 13:04> Patient was seen and examined. Events of the last 24 hours have been noted. Spoke with with BRISEYDA regarding patient's clinical picture after evaluating and examining the patient independently. I performed a substantial part of the MDM during this patient's care today. I personally made or approved the documented management plan and acknowledge its risk of complications. I agree with the findings and documentation provided in the BRISEYDA's notes. Will arrange for discharge planning. Start Decadron. <Jonathan Meneses - Last Filed: 01/13/24 17:46>
--- NOTE | 2024-01-13 15:03 | EKG ---
Test Date: 2024-01-12 Test Time: 18:00:45 [employer]sembler Camper: PH MEASUREMENT RESULTS: Intervals: Rate: 109 DE: 126 QRSD: 72 QT: 372 QTc: 500 [place]: P: 39 DE: 126 QRS: 13 T: 51 INTERPRETIVE STATEMENTS: Sinus tachycardia with premature atrial complexes Nonspecific ST and T wave abnormality Abnormal ECG Compared to ECG 01/04/2024 09:24:24 Atrial premature complex(es) now present ST (T wave) deviation now present Sinus rhythm no longer present Electronically Signed On 01-13-24 15:02:24 CDT by Goran Kaur
[2024-01-13] MEDS: dexAMETHasone 4 MG/ML VIAL IV ONE (18:06)
[2024-01-14] MEDS: dexAMETHasone 4 MG/ML VIAL IV SCH (00:13)
--- NOTE | 2024-01-14 06:57 | P.PN ---
Date of Service: 01/14/24
--- NOTE | 2024-01-14 07:02 | P.DS ---
Admission Date: 01/13/24 Discharge Date: 01/14/24 Disposition: DC TO HOSPICE INTERNAL GIP FAC Discharge Condition: FAIR Reason for Admission: Worsening wound/weakness and needing hospice placement Brief History of Present Illness: Patient is a 53-year-old female who came into the hospital after having multiple falls and being confused. 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 Patient has been dealing with this for the last 8 years. Her prognosis has slowly worsened. The family stopped any further radiation and chemotherapy about a year ago. They proceeded with hospice and patient is under the care of hospice care team. The daughters try to get her set up at [facility]. She has developed stage II-III sacral decubitus wounds which are draining quite extensively. The daughter is no longer able to care for her mother at home. They wanted to proceed with placement at [facility]. Patient will be admitted for observation. * White matter hypodensity with vasogenic edema pattern centered on the right opercular and subinsular regions. Stable right parietal isodense subdural collection measuring 7 mL in thickness, a reflect subacute to chronic blood products. Patient with a midline shift. - Physical Exam General: Alert, In no apparent distress, Oriented x1, Confused HEENT: Atraumatic, PERRLA, Mucous membr. moist/pink, EOMI, Sclerae nonicteric Neck: Supple, 2+ carotid pulse no bruit, No LAD, Without JVD or thyroid abnormality Respiratory: Diminished Cardiovascular: Regular rate/rhythm, Normal S1 S2, No murmurs Gastrointestinal: Normal bowel sounds, Soft and benign, Non-distended, No tenderness Musculoskeletal: No clubbing, No swelling, No tenderness Integumentary: No rashes Neurological: Abnormal gait, Abnormal speech, Abnormal strength, Abnormal cranial nerve function Hospital Course: 53-year-old female who came into the hospital after having multiple falls and being confused. 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 Patient has been dealing with this for the last 8 years. Noted to have metastatic brain cancer. Plan to discharge to [facility] for hospice care. 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 Meneses at [phone] if any questions regarding hospital stay -Please call nursing station at [phone] if any nursing or medication questions -Return to the emergency room if symptoms worsen Diet: ADA, low sodium Activity: Fall precautions Vital Signs/Physical Exam: Temp Pulse Resp BP Pulse Ox 97.9 F 98 H 18 109/68 97 01/14/24 04:00 01/14/24 05:12 01/14/24 05:12 01/14/24 05:12 01/14/24 04:00 Laboratory Data at Discharge: WBC 6.10 thou/uL (4.3-10.9) 01/12/24 16:08 Hgb 11.3 g/dL (12.0-15.0) L 01/12/24 16:08 Hct 34.8 % (36.0-45.0) L 01/12/24 16:08 Plt Count 428 thou/uL (152-406) H 01/12/24 16:08 PT 13.2 SECONDS (9.4-12.5) H 01/12/24 16:08 INR 1.18 01/12/24 16:08 Sodium 137 mEq/L (136-145) 01/12/24 16:08 Potassium 3.6 mEq/L (3.5-5.1) 01/12/24 16:08 BUN 23 mg/dL (7-18) H 01/12/24 16:08 Creatinine 0.81 mg/dL (0.55-1.02) 01/12/24 16:08 Glucose 84 mg/dL (74-106) 01/12/24 16:08 Magnesium 1.8 mg/dL (1.6-2.4) 01/12/24 16:08 Total Bilirubin 0.8 mg/dL (0.2-1.0) 01/12/24 16:08 AST 21 U/L (15-37) 01/12/24 16:08 ALT 27 U/L (13-56) 01/12/24 16:08 Alkaline Phosphatase 87 U/L (45-117) 01/12/24 16:08 Lipase 66 U/L (13-75) 01/12/24 16:08 Home Medications: levETIRAcetam [Keppra*] 500 mg PO BID #60 tab 01/14/24 predniSONE [Deltasone] 20 mg PO BID #20 tab 01/14/24 New Medications: levETIRAcetam [Keppra*] 500 mg PO BID #60 tab predniSONE [Deltasone] 20 mg PO BID #20 tab Physician Discharge Instructions: Hospice Care Team P: [phone] F: [phone] [employer] Hand Finisher: Dr. Escobar Carrera [address] [place] [address] P:[phone]/ F:[phone] History of Present Illness: Patient is a 53-year-old female who came into the hospital after having multiple falls and being confused. 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 Patient has been dealing with this for the last 8 years. Her prognosis has slowly worsened. The family stopped any further radiation and chemotherapy about a year ago. They proceeded with hospice and patient is under the care of hospice care team. The daughters are trying to get her set up at [facility]. She has developed stage II- III sacral decubitus wounds which are draining quite extensively. The daughter is no longer able to care for her mother at home. They wanted to proceed with placement at [facility]. Patient will be admitted for observation. Diet: Regular Activity: Ad natasha Followup: Ankush Umanzor MD [ACTIVE - CAN ADMIT] - Justin Mejía MD [ACTIVE - CAN ADMIT] - NONE,NONE [Primary Care Provider] - Time spent managing pt's care (in minutes): 55
[2024-01-14] MEDS ORDERED: LORazepam 2 MG/ML VIAL IV PRN (12:43)
[2024-01-14] MEDS ORDERED: HALOPERIDOL LACT 5 MG/ML INJ IV PRN (12:43)
[2024-01-14 14:19] LABS: Anion Gap 10.2 mEq/L (5.0-15.0); Potassium 3.2 mEq/L (3.5-5.1)
[2024-01-14 16:31] VITALS: BP 121/66; TEMP 97.4
== END 2024-01-14 18:45 | disposition hospice, inpatient (51) | DRG 947 ==
LOC: ER 15:21 → ERHOLD 17:16 → 2ND 18:12 → OBSVTOIN 01-13 13:02
PROVIDERS: ADMIT Hospitalist; ATTEND Hospitalist
DX: R53.1 Weakness (principal); G93.6 Cerebral edema; L89.153 Pressure ulcer of sacral region, stage 3; G81.94 Hemiplegia, unspecified affecting left nondominant side; C79.31 Secondary malignant neoplasm of brain; C78.00 Secondary malignant neoplasm of unspecified lung; R29.6 Repeated falls; Z66 Do not resuscitate; Z92.3 Personal history of irradiation; Z91.81 History of falling; Z92.21 Personal history of antineoplastic chemotherapy; Z85.841 Personal history of malignant neoplasm of brain; Z85.850 Personal history of malignant neoplasm of thyroid; Z85.118 Personal history of other malignant neoplasm of bronchus and lung; Z79.899 Other long term (current) drug therapy; Z87.891 Personal history of nicotine dependence
CPT/HCPCS: 36415; 70450; 71045; 74176; 76377; 80048; 80076; 81001; 82010; 83605; 83690; 83735; 83880; 84484; 85025; 85610; 93005; 96365; 96375; 99285; G0378; J0696; J1100; J1953; J2270; J2405; J7030; J7040